=== PATIENT | male | born 1945 | race Caucasian/White ===

== ENCOUNTER 2019-03-06 09:03 | Outpatient (CLI) | payer MEDICARE, MEDICAID, SELFPAY ==
--- NOTE | 2019-03-06 09:34 | US_ITS ---
WS: [id number] ULTRASOUND RENAL TECHNIQUE: Ultrasound examination of both kidneys. CLINICAL INFORMATION: ELEVATED CREATININE COMPARISON: February 01, 2018 FINDINGS: RIGHT: Right kidney cyst measures 1.2 x 1.7 x 0.9 cm Right kidney is normal in size and appearance. Echogenicity: Normal. Cortical thickness: 1.5 cm; Normal. Hydronephrosis: None. Perinephric fluid: None. Right kidney measures: 11.3 cm x 6.8 cm x 7.0 cm. LEFT: Left kidney is normal in size and appearance. Echogenicity: Normal. Cortical thickness: 1.2 cm; Normal. Hydronephrosis: None. Perinephric fluid: None. Left kidney measures: 11.2 cm x 6.5 cm x 5.4 cm. Normal visualized aorta. Normal bladder US/US renal BI* [id number] IMPRESSION: 1. Both kidneys are normal in appearance. No hydronephrosis. 2. Right upper pole renal cyst measuring 1.2 x 1.7 x 0.9 cm
== END 2019-03-06 09:04 | disposition home or self-care (01) ==
LOC: RAD 09:12
PROVIDERS: Family Provider Family Medicine; PCP Family Medicine; Visit Provider Family Medicine
DX: N28.1 Cyst of kidney, acquired (principal); R79.89 Other specified abnormal findings of blood chemistry
CPT/HCPCS: 76770

== ENCOUNTER 2019-03-22 07:10 | Day surgery (SDC) | payer MEDICARE, MEDICAID, SELFPAY ==
[2019-03-21 13:11] VITALS: BMI 32.0
--- NOTE | 2019-03-22 07:23 | P.ANES_ITS ---
Pre-Anesthetic Assessment Pre-Anesthetic Assessment: Height/Weight: Height 1.75 m Weight 98.43 kg Preop Diagnosis: hematochezia Proposed Procedure: Operation Date: 03/22/19 08:30 Proposed Procedures p EGD/COLON 66643 K92.1(Not Applicable) - Good Weller MD s Colonoscopy 07779 R10.11(Not Applicable) - Good Weller MD Last intake: 23:00 Last Intake: 18:00 Exam: Pre-Anes Outpt Exam: alert, oriented x 3, clear to auscultation bilaterally and regular rate & rhythm CV/HEM: CV/HEM: HTN GI: GI: GERD Comments: hematochezia Musc/skel: Musc/skel: Lower Back Pain Comments: right radiculopathy Neuropsych: Neuropsych: Anxiety PFSH Anesthesia PFSH: Medical History (Updated 03/20/19 @ 14:47 by Jose Crandall DO) Bloody stool (Acute) Depression (Acute) GERD (gastroesophageal reflux disease) (Acute) Malignant neoplasm of penis, unspecified (Acute) Melena (Acute) Social History Smoking and tobacco status: never smoked Second hand smoke exposure: No Alcohol intake: current Alcohol intake frequency: holidays/special occasions only Alcohol type: beer Desire information about alcohol rehabilitation?: No Adopted: No Caregiver/support person: Yes Lives independently: Yes Household members: significant other Housing: House Marital status: / Highest education level completed: High School Graduate service: No Current occupational status: retired Current occupational exposures/hazards: No Pets and animals: No History of recent travel: No Sexually active: No Current gender identity: Male Tri/Gnosticist: Sabianism Special tri needs: No Agree to transfusion: No Financial difficulty paying for basics: Decline to Answer Data Anesthesia Cardiac Studies: No Data to Display
[2019-03-22 07:45] VITALS: BP 149/92; PULSE 78; RESP 18; TEMP 36.2; O2SAT 98
[2019-03-22] MEDS: sodium chloride 0.9% 1,000 ML 30 ML (08:01)
--- NOTE | 2019-03-22 08:35 | PM.HPUD ---
H&P update H&P Update: DATE OF SURGERY/PROCEDURE: 03/22/19 DATE H&P PERFORMED: 03/15/19 H&P UPDATE INFORMATION: H&P completed within last 30 days and No changes to prior documentation PREOP DIAGNOSIS: blood in stool PLANNED PROCEDURE: Operation Date: 03/22/19 08:30 Proposed Procedures p EGD/COLON 66812 K92.1(Not Applicable) - Good Weller MD s Colonoscopy 43910 R10.11(Not Applicable) - Good Weller MD Full H&P Perinent History: Medical/Surgical History: Medical History (Updated 03/20/19 @ 14:47 by Jose Crandall DO) Bloody stool (Acute) Depression (Acute) GERD (gastroesophageal reflux disease) (Acute) Malignant neoplasm of penis, unspecified (Acute) Melena (Acute) Family History: Family History (Updated 03/15/19 @ 15:14 by Yenny Little RN) Denies family history of Anesthesia complication Bleeding disorder Social History: Social History Smoking and tobacco status: never smoked Second hand smoke exposure: No Alcohol intake: current Alcohol intake frequency: holidays/special occasions only Alcohol type: beer Desire information about alcohol rehabilitation?: No Adopted: No Caregiver/support person: Yes Lives independently: Yes Household members: significant other Housing: House Marital status: / Highest education level completed: High School Graduate service: No Current occupational status: retired Current occupational exposures/hazards: No Pets and animals: No History of recent travel: No Sexually active: No Current gender identity: Male Tri/Caodaism: Nondenominational Special tri needs: No Agree to transfusion: No Financial difficulty paying for basics: Decline to Answer
[2019-03-22 09:01] VITALS: BP 95/66; PULSE 62; RESP 16; TEMP 36.1; O2SAT 95
--- NOTE | 2019-03-22 09:08 | ANE.PACU ---
 Inpatient post-anesthesia follow up: Airway intact: Yes Vital signs: Temperature 97 F Pulse Rate [Bilate ral Radial] 62 Respiratory Rate 16 Blood Pressure [Le ft Arm] 95/66 Pulse Oximetry 95 Oxygen Delivery Me thod Nasal Cannula Oxygen Flow Rate 3 Fraction of Inspir ed Oxygen Hydration adequate: Yes Nausea and vomiting: No Pain level: 1 Mental status: Baseline
[2019-03-22 09:15] VITALS: BP 119/76; PULSE 58; RESP 18; O2SAT 98
[2019-03-23 11:04] LABS: H. Pylori / CLO Test Negative
== END 2019-03-22 09:50 | disposition home or self-care (01) ==
PROVIDERS: Family Provider Family Medicine; PCP Family Medicine; Visit Provider Surgery
PROC: 0DJ08ZZ Inspection of Upper Intestinal Tract, Via Natural or Artificial Opening Endoscopic (ICD-10-PCS; CPT 43235; principal; 2019-03-22 08:30)
PROC: 0DJD8ZZ Inspection of Lower Intestinal Tract, Via Natural or Artificial Opening Endoscopic (ICD-10-PCS; CPT 45378; 2019-03-22 08:30)
DX: K92.1 Melena (principal); Z85.89 Personal history of malignant neoplasm of other organs and systems; D12.8 Benign neoplasm of rectum; Z79.891 Long term (current) use of opiate analgesic
CPT/HCPCS: 12345; 43239; 45380; 87077; 88305; 96365; J2704; J7030

== ENCOUNTER 2019-04-26 15:22 | Outpatient (CLI) | payer MEDICARE, MEDICAID, SELFPAY ==
[2019-04-26 16:59] LABS: Blood Urine Neg (Negative); Glucose Urine UA Norm (Normal); Ketones Urine Negative (Negative); Protein Urine 1+ (Negative); Urine Appearance Hazy (CLEAR); Urine Color Yellow (Yellow); pH Urine 5 (5-7)
[2019-04-26 17:00] LABS: Add Urine Culture? Yes; Bacteria Urine 2+; Bilirubin Urine Neg (NEGATIVE); Leukocyte Esterase Urine 1+ (Negative); Nitrate Urine Positive (Negative); Urobilinogen Urine Norm (Negative); WBC Urine 40-55 /hpf (0-5)
[2019-04-26 18:08] LABS: Albumin Level 4.4 g/dL (3.5-5.2); Anion Gap 14.8 (5-19); Blood Urea Nitrogen 24 mg/dL (8-23); Calcium 10.9 mg/dL (8.5-10.5); Carbon Dioxide 26 mmol/L (22-29); Chloride 104 mmol/L (98-107); Glucose 101 mg/dL (65-115); Phosphorus 3.5 mg/dL (2.5-4.5); Potassium 4.8 mmol/L (3.5-5.1); Sodium 140 mmol/L (136-145); Uric Acid 6.7 mg/dL (3.4-7.0)
[2019-04-26 19:40] LABS: Creatinine Urine, Random 168 mg/dL (39-259); Microalbumin Random Urine 25 ug/dL (0-20)
[2019-04-26 20:38] LABS: Microalbum Creatinine Ratio Ur 149 mg/dL (0-20)
[2019-04-26 21:32] LABS: Calcium 10.7 mg/dL (8.5-10.5); Parathyroid Hormone 69.6 pg/mL (15-65)
[2019-04-27 04:35] LABS: 25 Hydroxy Vitamin D 37 ng/mL (30-100)
[2019-04-28 07:34] LABS: PROTEIN, TOTAL 6.6 g/dL (6.1-8.1)
[2019-04-28 12:02] LABS: ALPHA 1 GLOBULIN 0.3 g/dL (0.2-0.3); ALPHA 2 GLOBULIN 0.8 g/dL (0.5-0.9); BETA 1 GLOBULIN 0.4 g/dL (0.4-0.6); BETA 2 GLOBULIN 0.4 g/dL (0.2-0.5); GAMMA GLOBULIN 0.8 g/dL (0.8-1.7)
[2019-04-28 16:56] LABS: KAPPA LIGHT CHAIN, FREE, SERUM 31.3 mg/L (3.3-19.4); KAPPA/LAMBDA LIGHT CHAINS FREE 1.44 (0.26-1.65); LAMBDA LIGHT CHAIN, FREE, SERU 21.8 mg/L (5.7-26.3)
== END 2019-04-26 15:23 | disposition home or self-care (01) ==
LOC: LAB 15:27
PROVIDERS: Family Provider Family Medicine; PCP Family Medicine; Visit Provider Internal Medicine Nephrology
DX: N18.3 Chronic kidney disease, stage 3 (moderate) (principal)
CPT/HCPCS: 36415; 80069; 81001; 82044; 82306; 82310; 83883; 83970; 84155; 84165; 84550

== ENCOUNTER 2019-05-03 13:52 | Outpatient (CLI) | payer MEDICARE, MEDICAID, SELFPAY ==
[2019-05-03 14:33] LABS: Add Urine Microscopic? YES; Bilirubin Urine Neg (NEGATIVE); Blood Urine 3+ (Negative); Glucose Urine UA Norm (Normal); Ketones Urine Negative (Negative); Nitrate Urine Negative (Negative); Protein Urine 2+ (Negative); Urine Appearance Hazy (CLEAR); Urine Color Yellow (Yellow); Urobilinogen Urine Norm (Negative); pH Urine 5 (5-7)
[2019-05-03 14:34] LABS: Add Urine Culture? Yes; Bacteria Urine TRACE; Leukocyte Esterase Urine 2+ (Negative); RBC Urine 15-25 /hpf (0-2); WBC Urine TOO NUMEROUS TO CNT /hpf (0-5)
== END 2019-05-03 13:53 | disposition home or self-care (01) ==
LOC: LAB 13:56
PROVIDERS: Family Provider Family Medicine; PCP Family Medicine; Visit Provider Internal Medicine Nephrology
DX: N18.3 Chronic kidney disease, stage 3 (moderate) (principal)
CPT/HCPCS: 81001; 87077; 87086; 87186

== ENCOUNTER 2019-07-18 15:09 | Outpatient (CLI) | payer MEDICARE, MEDICAID, SELFPAY ==
--- NOTE | 2019-07-18 15:15 | XR_ITS ---
WS: [id number] RIGHT SHOULDER: 3 VIEW(S) TECHNIQUE: Internal and external rotation with Y view. HISTORY: FALL PAIN IN RIGHT SHOULDER COMPARISON: None available. There is a lucency at the greater tuberosity suspicious for nondisplaced fracture. Mild AC joint narrowing and bony hypertrophy. XR/XR shoulder RT min 2V* 66870 IMPRESSION: Mild AC joint arthritis. Lucency at the greater tuberosity suspicious for nondisplaced fracture.
== END 2019-07-18 15:10 | disposition home or self-care (01) ==
LOC: RADWPI 15:16
PROVIDERS: Family Provider Family Medicine; PCP Family Medicine; Visit Provider Nurse Practitioner Family
DX: M25.511 Pain in right shoulder (principal); W19.XXXA Unspecified fall, initial encounter; M19.011 Primary osteoarthritis, right shoulder
CPT/HCPCS: 73030

== ENCOUNTER 2019-07-21 14:43 | Emergency (ER) | payer MEDICARE, MEDICAID, SELFPAY ==
[2019-07-21 15:08] VITALS: BP 150/79; PULSE 57; RESP 18; TEMP 36.7; O2SAT 97; BMI 32.5
[2019-07-21 16:20] LABS: Basophils % 0.6 %; Eosinophils # 0.1 10^3/uL (0.0-0.8); Eosinophils % 2.5 %; Hemoglobin 13.4 g/dL (11.7-16.6); Lymphocytes # 0.9 10^3/uL (0.8-4.8); Lymphocytes % 24.5 %; Mean Corpuscular HGB Conc 32.7 g/dL (30.0-36.0); Mean Corpuscular Hemoglobin 30.7 pg (28.0-34.0); Mean Corpuscular Volume 93.8 fL (80-94); Mean Platelet Volume 8.7 fL (7.4-10.4); Monocytes # 0.3 10^3/uL (0.2-0.9); Monocytes % 8.3 %; Neutrophils # 2.3 10^3/uL (1.8-7.7); Neutrophils % 63.8 %; Nucleated Red Blood Cells % 0 %; Platelet Count 161 10^3/cmm (130-400); Red Blood Count 4.37 10^6/uL (4.1-5.3); Red Cell Distribution Width 13.2 % (12.1-15.1); White Blood Count 3.6 10^3/uL (4.0-10.0)
[2019-07-21 16:35] LABS: Alanine Aminotransferase 14 U/L (0-41); Albumin Level 4.3 g/dL (3.5-5.2); Alkaline Phosphatase 79 IU/L (40-130); Anion Gap 16.9 (5-19); Aspartate Amino Transferase 21 U/L (0-40); Blood Urea Nitrogen 41 mg/dL (8-23); Calcium 10.4 mg/dL (8.5-10.5); Carbon Dioxide 20 mmol/L (22-29); Chloride 104 mmol/L (98-107); Globulin 2.8 g/dL (1.3-4.6); Glucose 99 mg/dL (65-115); Osmolality Calculated 280 mOsm/kg (285-295); Potassium 4.9 mmol/L (3.5-5.1); Sodium 136 mmol/L (136-145); Total Bilirubin 0.3 mg/dL (0.15-1.2); Total Protein 7.1 g/dL (6.6-8.7)
--- NOTE | 2019-07-21 17:47 | ED_ITS ---
HPI - General Adult General: Chief complaint: General Medical Stated complaint: MULTIPLE COMPLAINTS; SENT BY Time Seen by Provider: 07/21/19 17:47 Source: patient Mode of arrival: ambulatory Limitations: no limitations History of Present Illness: HPI narrative: Patient comes in today for complaints of persistent urinary tract infection. Patient had been being seen at a local clinic and was referred to the ER due to abnormal urine culture. The clinic and called the emergency department and stated that they wanted to change the antibiotic over the phone but the patient wanted to be seen in the ER. Discussed this with patient he felt that he needed further medication for his treatment of his urinary tract infection. Patient denies any significant or serious symptoms. Patient appears well. Patient appears in no pain. Review of Systems General: Reports: 10 or more systems reviewed and unremarkable except in HPI and below : Reports: difficulty urinating [facility] PFSH: Medical History (Updated 07/21/19 @ 18:16 by ALESHA Pak) Bloody stool Change in bowel habit Depression GENESIS (generalized anxiety disorder) GERD (gastroesophageal reflux disease) Hypertension Malignant neoplasm of penis, unspecified Melena Surgical History History of knee surgery History of laparoscopic cholecystectomy Family History Denies family history of Anesthesia complication Bleeding disorder Social History Smoking and tobacco status: never smoked Second hand smoke exposure: No Alcohol intake: current Alcohol intake frequency: holidays/special occasions only Alcohol type: beer Desire information about alcohol rehabilitation?: No Adopted: No Caregiver/support person: Yes Lives independently: Yes Household members: significant other Housing: House Marital status: / Highest education level completed: High School Graduate service: No Current occupational status: retired Current occupational exposures/hazards: No Pets and animals: No History of recent travel: No Sexually active: No Current gender identity: Male Tri/Zoroastrianism: [employer] Special tri needs: No Agree to transfusion: No Financial difficulty paying for basics: Decline to Answer Physical Exam Const: COMMON NORMALS: no acute distress and patient oriented x3 GENERAL APPEARANCE: cooperative HENMT: COMMON NORMALS: normocephalic, TM's normal bilaterally and Normal external nose present HEAD & SCALP: normal to inspection and normocephalic NOSE: Normal external nose present TYMPANIC MEMBRANE: TM's normal bilaterally MOUTH: Normal oral and palatal mucosa present THROAT: posterior oropharynx normal Eye: GENERAL EYE: appearance normal, both eyes and all related structures Neck/C-Spine: COMMON NORMALS: full ROM Lymph: LYMPHATIC: no lymphadenopathy noted Chest: COMMONS NORMALS: normal inspection of the chest Resp: COMMON NORMALS: normal respiratory effort EFFORT & INSPECTION: Yes able to speak in complete sentences Cardio: COMMON NORMALS: regular rate and regular rhythm RATE: regular rate RHYTHM: regular rhythm GI: COMMON NORMALS: non-tender : COMMON NORMALS: Yes no CVA tenderness BLADDER/KIDNEY EXAM: Yes no CVA tenderness Back/Pelvis: COMMON NORMALS: no CVA tenderness and thoracic and lumbar spine normal to inspection Extremity: COMMON NORMALS: normal to inspection Neuro: COMMON NORMALS: patient oriented x3 and moves all extremities Psych: COMMON NORMALS: mental status grossly normal and cooperative Skin: COMMON NORMALS: no rashes or lesions noted GENERAL SKIN EXAM: no rashes or lesions noted Course Vital Signs: Vital signs: Vital Signs Temperature 98.0 F 07/21/19 15:08 Pulse Rate 50 L 07/21/19 18:08 Respiratory Rate 18 07/21/19 18:08 Blood Pressure 132/83 07/21/19 18:08 Pulse Oximetry 98 07/21/19 18:08 MDM - General Adult MDM Narrative: Medical decision making narrative: Patient come to the ER for concerns of urinary tract infection. Patient was started on Cipro last week but it was found that patient's Cipro would not cover the infection. Patient was came to the ER for retreatment of antibiotic. Examination of the urinary culture and sensitivity noted that it was not susceptible to Cipro which patient was on, it is susceptible to penicillins, Macrobid, and and vancomycin. Exam notes no serious injury or illness. Vital signs are normal except for mild bradycardia. Reviewed exam with patient recommended treatment with an injection of Rocephin to follow with cefdinir. Recommend follow-up appointment with urology for further treatment. Also recommended recheck with primary care in 1 week for repeat urinalysis. Patient reported understanding of care plan and need for follow-up. Lab Data: Labs: Lab Results 05/22/20 05/22/20 Range/Units 16:11 16:11 WBC 3.6 L (4.0-10.0) 10^3/ uL RBC 4.37 (4.1-5.3) 10^6/u L Hgb 13.4 (11.7-16.6) g/dL Hct 41.0 L (42.0-52.0) % MCV 93.8 (80-94) fL MCH 30.7 (28.0-34.0) pg MCHC 32.7 (30.0-36.0) g/dL RDW 13.2 (12.1-15.1) % Plt Count 161 (130-400) 10^3/c mm MPV 8.7 (7.4-10.4) fL Neut % (Auto) 63.8 % Lymph % (Auto) 24.5 % [place] % (Auto) 8.3 % Eos % (Auto) 2.5 % Baso % (Auto) 0.6 % Neut # (Auto) 2.3 (1.8-7.7) 10^3/u L Lymph # (Auto) 0.9 (0.8-4.8) 10^3/u L [place] # (Auto) 0.3 (0.2-0.9) 10^3/u L Eos # (Auto) 0.1 (0.0-0.8) 10^3/u L Baso # (Auto) 0.0 (0.0-0.1) 10^3/u L Nucleated RBC % (a uto) 0 % Nucleated RBCs # 0.0 /100WBC Sodium 136 (136-145) mmol/L Potassium 4.9 (3.5-5.1) mmol/L Chloride 104 (98-107) mmol/L Carbon Dioxide 20 L (22-29) mmol/L Anion Gap 16.9 (5-19) BUN 41 H (8-23) mg/dL Creatinine 2.0 H (0.7-1.2) mg/dL Glucose 99 (65-115) mg/dL Calculated Osmolal ity 280 L (285-295) mOsm/k g Calcium 10.4 (8.5-10.5) mg/dL Total Bilirubin 0.3 (0.15-1.2) mg/dL AST 21 (0-40) U/L ALT 14 (0-41) U/L Alkaline Phosphata se 79 (40-130) IU/L Total Protein 7.1 (6.6-8.7) g/dL Albumin 4.3 (3.5-5.2) g/dL Globulin 2.8 (1.3-4.6) g/dL Discharge Plan Discharge Patient Disposition: Home, Self-Care Clinical Impression: Cystitis Condition: Stable Prescriptions: New cefdinir 300 mg capsule 300 mg PO BID 10 Days Qty: 28 RF: 0 No Action mirtazapine 15 mg tablet 15 mg PO QDAY RF: 0 escitalopram oxalate 10 mg tablet 10 mg PO QDAY Qty: 30 RF: 11 Eliquis 5 mg tablet 5 mg PO DAILY RF: 0 Hold Instructions: Resume on 03/25/19. metoprolol tartrate 25 mg tablet 25 mg PO BID RF: 0 Complete Multivitamin Tablet 1 tab PO ONCE RF: 0 hydrocodone-acetaminophen [Converse] 7.5-325 mg tablet 1 tab PO BID PRN (Reason: Pain) RF: 0 Xanax 1 mg tablet 1 mg PO BID PRN (Reason: anxiety) RF: 0 cetirizine [Zyrtec] 10 mg tablet 10 mg PO DAILY RF: 0 paroxetine HCl 20 mg tablet 20 mg PO DAILY RF: 0 omeprazole 20 mg capsule,delayed release(DR/EC) 20 mg PO DAILY RF: 0 Discharge Orders: Discharge Order (Routine); Ordered 07/21/19 Ordered By: Young Lujan Referrals: Mey Garnica MD [Primary Care Provider] - Discharge Diet: Usual diet Discharge Activity: Increase activity as tolerated Patient Instructions: Urinary Tract Infection in Men (ED) Activity Restrictions/Additional Instructions: Drink plenty of water with medications. Take antibiotic as directed. Follow-up with primary care in 1 week for recheck on the urine. Return to the ER for high fever or worsening symptoms. Case management will contact you regarding a follow-up with urology for further evaluation and treatment of recurrent urinary tract infection. Coding Level of Care Code ED Insurance Risk Manager for Cielo Fwswati Exam Comprehensive
[2019-07-21 18:08] VITALS: BP 132/83; PULSE 50; RESP 18; O2SAT 98
[2019-07-21 18:33] LABS: Add Urine Microscopic? YES; Bilirubin Urine 1+ (NEGATIVE); Blood Urine Neg (Negative); Glucose Urine UA Norm (Normal); Ketones Urine Negative (Negative); Leukocyte Esterase Urine 2+ (Negative); Nitrate Urine Negative (Negative); Protein Urine Neg (Negative); Specific Gravity, Urine 1.015 (1.005-1.030); Urine Appearance Hazy (CLEAR); Urine Color Yellow (Yellow); Urobilinogen Urine Norm (Negative); pH Urine 5 (5-7)
[2019-07-21 18:41] LABS: Bacteria Urine 3+; RBC Urine 0-4 /hpf (0-2); Squamous Epithelial Cell Urine 0-4 (0-5); WBC Urine TOO NUMEROUS TO CNT /hpf (0-5)
[2019-07-21 18:42] LABS: Add Urine Culture? Yes
[2019-07-21] MEDS: cefTRIAXone 1,000 mg SDV 1000 MG IM (18:50)
[2019-07-21 18:51] VITALS: BP 100/64; PULSE 50; RESP 18; O2SAT 98
[2019-07-21 19:44] VITALS: BP 109/65; PULSE 52; RESP 16; O2SAT 98
--- NOTE | 2019-07-25 09:20 | DCPLANNER ---
java manager had message to schedule a follow up appointment for patient with Dr. Encinas. java manager called the office of Dr. Encinas, spoke with Sharita. java manager was told that patients information would be printed and reviewed. Clinic will call patient with appointment information, nurse case manager will call for appointment information.
--- NOTE | 2019-07-27 13:19 | DCPLANNER ---
Patient has a follow up appointment scheduled for , August 03, 2019 at 3:[address] Encinas. Clinic will call patient with appointment information.
--- NOTE | 2019-08-17 13:27 | DCPLANNER ---
Patient did attend appointment scheduled for 08.03.[address] Encinas.
== END 2019-07-21 19:49 | disposition home or self-care (01) ==
PROVIDERS: Physician Assistant; Emergency Provider Nurse Practitioner Family; Family Provider Family Medicine; PCP Family Medicine
DX: N30.90 Cystitis, unspecified without hematuria (principal); Z79.01 Long term (current) use of anticoagulants; I10 Essential (primary) hypertension; Z85.49 Personal history of malignant neoplasm of other male genital organs
CPT/HCPCS: 12345; 36415; 80053; 81001; 85025; 87077; 87086; 87186; 96372; 99282; 99283; J0696

== ENCOUNTER 2019-07-31 16:47 | Outpatient (CLI) | payer MEDICARE, MEDICAID, SELFPAY ==
[2019-07-31 17:39] LABS: Basophils % 0.9 %; Eosinophils # 0.1 10^3/uL (0.0-0.8); Eosinophils % 2.9 %; Hematocrit 43.2 % (42.0-52.0); Hemoglobin 13.4 g/dL (11.7-16.6); Lymphocytes # 0.9 10^3/uL (0.8-4.8); Lymphocytes % 26.6 %; Mean Corpuscular Hemoglobin 30.5 pg (28.0-34.0); Mean Corpuscular Volume 98.2 fL (80-94); Mean Platelet Volume 8.5 fL (7.4-10.4); Monocytes # 0.3 10^3/uL (0.2-0.9); Monocytes % 7.7 %; Neutrophils # 2.2 10^3/uL (1.8-7.7); Neutrophils % 61.6 %; Nucleated Red Blood Cells % 0 %; Platelet Count 153 10^3/cmm (130-400); Red Cell Distribution Width 13.1 % (12.1-15.1); White Blood Count 3.5 10^3/uL (4.0-10.0)
[2019-07-31 17:52] LABS: Albumin Level 4.2 g/dL (3.5-5.2); Anion Gap 13.6 (5-19); Blood Urea Nitrogen 27 mg/dL (8-23); Calcium 9.6 mg/dL (8.5-10.5); Carbon Dioxide 20 mmol/L (22-29); Chloride 108 mmol/L (98-107); Glucose 117 mg/dL (65-115); Phosphorus 2.8 mg/dL (2.5-4.5); Potassium 4.6 mmol/L (3.5-5.1); Sodium 137 mmol/L (136-145)
[2019-07-31 18:21] LABS: Creatinine Urine, Random 179 mg/dL (39-259); Microalbum Creatinine Ratio Ur 39 mg/dL (0-20); Microalbumin Random Urine 7 ug/dL (0-20)
== END 2019-07-31 16:48 | disposition home or self-care (01) ==
LOC: RAD 16:51
PROVIDERS: PCP Family Medicine; Visit Provider Internal Medicine Nephrology
DX: N18.3 Chronic kidney disease, stage 3 (moderate) (principal)
CPT/HCPCS: 36415; 80069; 82044; 85025

== ENCOUNTER → 2019-08-03 15:07 | Outpatient (BNVA) | payer MEDICARE, MEDICAID, SELFPAY | PROVIDERS: PCP Family Medicine; Visit Provider Nurse Practitioner Family | DX: C60.9 Malignant neoplasm of penis, unspecified (principal); N39.0 Urinary tract infection, site not specified; N35.919 Unspecified urethral stricture, male, unspecified site | CPT/HCPCS: 81001 ==

== ENCOUNTER 2019-08-18 12:46 | Outpatient (CLI) | payer MEDICARE, MEDICAID, SELFPAY ==
--- NOTE | 2019-08-18 12:59 | XR_ITS ---
WS: [id number] XR chest 1V [id number] REASON FOR EXAM: FEVER, COUGHING, MALAISE, CKD STAGE 3 FINDINGS: Comparisons were made to February 06, 2019. The heart is not enlarged there is arteriosclerotic changes seen in the arch the aorta. The peripheral lungs are well aerated. No pneumonia, pleural effusion, pulmonary edema, or mass effec t. The hilum and apices are normal. No osseous abnormalities. XR/XR chest 1V [id number] IMPRESSION: Arteriosclerotic changes.
== END 2019-08-18 12:47 | disposition home or self-care (01) ==
PROVIDERS: PCP Family Medicine; Visit Provider Nurse Practitioner Family
DX: R50.9 Fever, unspecified (principal); R53.81 Other malaise; R05 Cough; N18.3 Chronic kidney disease, stage 3 (moderate)
CPT/HCPCS: 71045

== ENCOUNTER 2019-09-19 12:58 | Outpatient (CLI) | payer BC, MEDICAID, SELFPAY ==
--- NOTE | 2019-09-19 13:05 | XRR_ITS ---
PROCEDURE INFORMATION: Exam: XR Chest, 2 Views Exam date and time: 09/19/2019 1:20 PM Age: 74 years old Clinical indication: Condition or disease; Other: Penile cancer TECHNIQUE: Imaging protocol: XR of the chest Views: 2 views. COMPARISON: CR XR chest 1V [id number] 08/18/2019 1:02 PM FINDINGS: Lungs: Unremarkable. No consolidation. Pleural space: Unremarkable. No pleural effusion. No pneumothorax. Heart/Mediastinum: Unremarkable. No cardiomegaly. Bones/joints: Unremarkable. XR/XR chest 2V* [id number] IMPRESSION: No acute findings.
== END 2019-09-19 12:59 | disposition home or self-care (01) ==
PROVIDERS: PCP Family Medicine; Visit Provider Urology
DX: C60.9 Malignant neoplasm of penis, unspecified (principal)
CPT/HCPCS: 71046; 80053; 81001; 85025

== ENCOUNTER 2019-10-09 16:34 | Outpatient (CLI) | payer MEDICARE, MEDICAID, SELFPAY ==
--- NOTE | 2019-10-09 16:41 | XR_ITS ---
WS: [id number] LUMBAR SPINE: 3 VIEWS TECHNIQUE: AP, lateral and L5-S1 spot. HISTORY: LOWER BACK PAIN COMPARISON: 09/06/2015 Straightening of the normal lumbar lordosis. There is complete fusion across the disc space of L3-4 a nd L4-5. Interbody ankylosis. Large bridging osteophytes anteriorly. Severe disc space narrowing at L 5-S1 with a large clawlike osteophyte anteriorly. L2 anterolisthesis by 3 mm. No fractures. There is additional fusion across the facet joints suspected. Similar findings were described in 2016 . SI joints are symmetric bilaterally. No soft tissue abnormalities. 9.8 mm LEFT renal calcification is unchanged since 2016. XR/XR lumbar spine 2-3V* [id number] IMPRESSION: 1. 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 Similar to the prior study from 2016. 2. No fracture. 3. Severe degenerative disc disease at L5-S1.
== END 2019-10-09 16:35 | disposition home or self-care (01) ==
LOC: RADWPI 16:39
PROVIDERS: PCP Family Medicine; Visit Provider Nurse Practitioner Family
DX: M54.5 Low back pain (principal); M43.26 Fusion of spine, lumbar region; M51.37 Other intervertebral disc degeneration, lumbosacral region
CPT/HCPCS: 72100

== ENCOUNTER 2019-10-17 15:15 | Emergency (ER) | payer MEDICARE, MEDICAID, SELFPAY ==
[2019-10-17 15:32] VITALS: BP 140/75; PULSE 51; RESP 18; TEMP 36.8; O2SAT 97; BMI 32.5
--- NOTE | 2019-10-17 18:37 | CTR_ITS ---
PROCEDURE INFORMATION: Exam: CT Lumbar Spine Without Contrast Exam date and time: 10/17/2019 6:57 PM Age: 74 years old Clinical indication: Pain and injury or trauma; Fall; Initial encounter; Blunt trauma (contusions or hematomas); Low back pain; Injury details: Numbness in left leg above knee TECHNIQUE: Imaging protocol: Computed tomography images of the lumbar spine without contrast. Radiation optimization: All CT scans at this facility use at least one of these dose optimization techniques: automated exposure control; mA and/or kV adjustment per patient size (includes targeted exams where dose is matched to clinical indication); or iterative reconstruction. COMPARISON: CR XR lumbar spine 2-3V* [id number] 10/09/2019 4:46 PM RADIATION DOSE METRICS: Total DLP (mGy-cm): 2670.42 FINDINGS: Vertebrae: No visible acute osseous abnormality. No visible fracture, subluxation, or dislocation. Again note of fused ankylosis L3, L4, and L5. Fused anterior claw syndesmophytes. Facet arthrosis. Discs/Spinal canal/Neural foramina: Degenerative disc disease with vacuum disc phenomenon L3/4 and L5/S1. Near complete loss in intervertebral disc space height L5/S1. Moderate central canal stenosis L3/L4 secondary to a posterior disc bulge osteophyte complex coupled with ligamentum flavum hypertrophy and facet arthrosis. Mild posterior disc bulge L5/S1 without central canal stenosis or visible neural foraminal carotid from. Soft tissues: Unremarkable. No visible significant paraspinal muscle atrophy. CT/CT lumbar spine wo con* [id number] IMPRESSION: 1. No visible acute osseous abnormality, fracture, subluxation, or dislocation. 2. Moderate central canal stenosis L3/L4. 3. Degenerative disc disease L3/4 and L5/S1 with vacuum disc phenomenon. 4. Again note of fused ankylosis L3, L4, and L5. Fused anterior claw syndesmophytes. 5. Facet arthrosis. Radiation Dose CTDIVOL = (mGy): DLP = 2670.42 (mGy-cm)
[2019-10-17 18:38] VITALS: PULSE 45
--- NOTE | 2019-10-17 18:39 | W.ED.EXTPRO ---
HPI - Extremity Problem General: Chief complaint: Extremity Problem,Nontraumatic Stated complaint: back/left leg pain Time Seen by Provider: 10/17/19 18:19 Source: patient Mode of arrival: ambulatory Limitations: no limitations History of Present Illness: HPI Narrative: 4-year-old male states he has a history of chronic back pain with worsening pain over the last week. He states on the left side and radiates down his left leg. Patient denies any bowel or bladder incontinence. He states he has had prostate issues over the last year. He denies any weakness in his extremities. He states much worse with walking and improved with rest. Associated symptoms: Deny chest pain, fever(s) or rash Review of Systems Const: Denies: fever(s), chills, body aches or change in appetite Eyes: Denies: blurry vision or eye discomfort ENMT: Denies: throat pain or dental pain Card: Denies: chest pain Resp: Denies: dyspnea GI: Denies: abdominal pain, nausea, vomiting or diarrhea : Denies: dysuria Musc: Reports: back pain Skin/Breast: Denies: rash Neuro: Denies: headache(s) Psych: Denies: depression Cliff/Lymph: Denies: easy bruising All/Imm: Denies: urticaria PFSH ED PFSH: Medical History Bloody stool Change in bowel habit Depression GENESIS (generalized anxiety disorder) GERD (gastroesophageal reflux disease) Hypertension Melena Recurrent UTI Squamous cell carcinoma of penis Urethral stricture Surgical History History of knee surgery History of laparoscopic cholecystectomy Family History Denies family history of Anesthesia complication Bleeding disorder Social History Smoking and tobacco status: never smoked Second hand smoke exposure: No Alcohol intake: current Alcohol intake frequency: holidays/special occasions only Alcohol type: beer Desire information about alcohol rehabilitation?: No Adopted: No Caregiver/support person: Yes Lives independently: Yes Household members: significant other Housing: House Marital status: / Highest education level completed: High School Graduate service: No Current occupational status: retired Current occupational exposures/hazards: No Pets and animals: No History of recent travel: No Sexually active: No Current gender identity: Male Tri/Roman Catholic: Buddhism Special tri needs: No Agree to transfusion: No Financial difficulty paying for basics: Decline to Answer Physical Exam Const: COMMON NORMALS: no acute distress, patient oriented x3 and healthy appearing HENMT: COMMON NORMALS: normocephalic and atraumatic HEAD & SCALP: normocephalic and atraumatic Eye: COMMON NORMALS: Equal, round and reactive pupils present and EOMs intact bilaterally PUPIL: Yes Equal, round and reactive pupils present Neck/C-Spine: COMMON NORMALS: full ROM and supple Chest: COMMONS NORMALS: normal inspection of the chest and normal palpation of entire chest wall Resp: COMMON NORMALS: normal respiratory effort, No retractions, No use of accessory muscles and clear to auscultation bilaterally AUSCULTATION: clear to auscultation bilaterally Cardio: COMMON NORMALS: regular rate, regular rhythm and No murmurs present (Cardio) RATE: regular rate RHYTHM: regular rhythm GI: COMMON NORMALS: Normal to inspection, nondistended, normoactive bowel sounds present, Soft to palpation, non-tender and no masses PALPATION: Yes Soft to palpation Back/Pelvis: OTHER: Tenderness over left lower back. No midline tenderness. Patient has no saddle anesthesia. He has 5 out of 5 strength bilateral extremities. Extremity: COMMON NORMALS: normal to inspection and full ROM Neuro: COMMON NORMALS: patient oriented x3, moves all extremities and no focal motor deficits Psych: COMMON NORMALS: mental status grossly normal, Normal thought process present and cooperative THOUGHT PROCESS: Normal thought process present Skin: COMMON NORMALS: no rashes or lesions noted and no wounds GENERAL SKIN EXAM: no rashes or lesions noted Course Vital Signs: Vital signs: Vital Signs Temperature 98.2 F 10/17/19 15:32 Pulse Rate 45 L 10/17/19 18:38 Respiratory Rate 17 10/17/19 18:51 Blood Pressure 140/75 10/17/19 15:32 Pulse Oximetry 97 10/17/19 15:32 MDM - Extremity (Nontraumatic) MDM Narrative: Medical decision making narrative: Patient presents here with low back pain with sciatica. Patient CT scan here is normal. On his exam he has no signs of cord compression or epidural abscess. Patient feels improved after morphine and steroids. He has an appoint with her PCP on Wednesday. Patient is to return if worsening. He understands and agrees to plan. Imaging Data^: ct lumbar: Radiologist's impression: zed Reason: pain [facility] [address] [place] [address] CT Scan Report Signed Patient: Mike Silva Unit #: [id number] : 1945 Age/Sex: 74 / M ADM Date: 10/17/19 Loc: ER Room/Bed: Attending Dr: Ordering Provider/Ordering MD: Fe Vázquez MD Date of Service: 10/17/19 Procedure(s): CT lumbar spine wo con* [id number] Accession Number(s): [id number] Report Number: [id number] PROCEDURE INFORMATION: Exam: CT Lumbar Spine Without Contrast Exam date and time: 10/17/2019 6:57 PM Age: 74 years old Clinical indication: Pain and injury or trauma; Fall; Initial encounter; Blunt trauma (contusions or hematomas); Low back pain; Injury details: Numbness in left leg above knee TECHNIQUE: Imaging protocol: Computed tomography images of the lumbar spine without contrast. Radiation optimization: All CT scans at this facility use at least one of these dose optimization techniques: automated exposure control; mA and/or kV adjustment per patient size (includes targeted exams where dose is matched to clinical indication); or iterative reconstruction. COMPARISON: CR XR lumbar spine 2-3V* [id number] 10/09/2019 4:46 PM RADIATION DOSE METRICS: Total DLP (mGy-cm): 2670.42 FINDINGS: Vertebrae: No visible acute osseous abnormality. No visible fracture, subluxation, or dislocation. Again note of fused ankylosis L3, L4, and L5. Fused anterior claw syndesmophytes. Facet arthrosis. Discs/Spinal canal/Neural foramina: Degenerative disc disease with vacuum disc phenomenon L3/4 and L5/S1. Near complete loss in intervertebral disc space height L5/S1. Moderate central canal stenosis L3/L4 secondary to a posterior disc bulge osteophyte complex coupled with ligamentum flavum hypertrophy and facet arthrosis. Mild posterior disc bulge L5/S1 without central canal stenosis or visible neural foraminal carotid from. Soft tissues: Unremarkable. No visible significant paraspinal muscle atrophy. CT/CT lumbar spine wo con* [id number] IMPRESSION: 1. No visible acute osseous abnormality, fracture, subluxation, or dislocation. 2. Moderate central canal stenosis L3/L4. 3. Degenerative disc disease L3/4 and L5/S1 with vacuum disc phenomenon. 4. Again note of fused ankylosis L3, L4, and L5. Fused anterior claw syndesmophytes. 5. Facet arthrosis. Discharge Plan Discharge Patient Disposition: Home Clinical Impression: Low back pain Qualifiers: Chronicity: acute Back pain laterality: left Sciatica presence: with sciatica Sciatica laterality: sciatica of left side Qualified Code(s): M54.42 - Lumbago with sciatica, left side Condition: Stable Prescriptions: New Naprosyn 500 mg tablet 500 mg PO BID PRN (Reason: pain) Qty: 20 RF: 0 Robaxin-750 750 mg tablet 750 mg PO Q6H Qty: 30 RF: 0 No Action mirtazapine 15 mg tablet 15 mg PO QDAY RF: 0 escitalopram oxalate 10 mg tablet 10 mg PO QDAY Qty: 30 RF: 11 Eliquis 5 mg tablet 5 mg PO BID RF: 0 Hold Instructions: Resume on 03/25/19. metoprolol tartrate 25 mg tablet 25 mg PO QID RF: 0 methenamine hippurate 1 gram tablet 1 gm PO BID Qty: 60 RF: 12 ascorbic acid (vitamin C) 1,000 mg tablet 1 gm PO BID RF: 0 Complete Multivitamin Tablet 1 tab PO ONCE RF: 0 hydrocodone-acetaminophen [[place]] 7.5-325 mg tablet 1 tab PO BID PRN (Reason: Pain) RF: 0 Xanax 1 mg tablet 1 mg PO BID PRN (Reason: anxiety) Qty: 60 RF: 0 paroxetine HCl 20 mg tablet 20 mg PO DAILY RF: 0 omeprazole 20 mg capsule,delayed release(DR/EC) 20 mg PO DAILY RF: 0 cetirizine [Zyrtec] 10 mg tablet 10 mg PO DAILY PRN (Reason: allergy symptoms) RF: 0 lisinopril 10 mg tablet 10 mg PO DAILY RF: 0 Discharge Orders: Discharge Order (Routine); Ordered 10/17/19 Ordered By: Fe Vázquez Referrals: Mey Garnica MD [Primary Care Provider] - Discharge Diet: Advance as tolerated Discharge Activity: Resume usual activity Patient Instructions: Back Pain (ED) Coding Level of Care Code ED Auto Wheel Alignment Specialist for Chg Fwd Exam Comprehensive
[2019-10-17] MEDS: dexamethasone 10 mg/mL INJ IM (18:50)
[2019-10-17 18:51] VITALS: RESP 17
[2019-10-17] MEDS: morphine 4 mg/mL SDV 1 mL IM (18:51)
--- NOTE | 2019-10-17 18:53 | PC.NURSE ---
pt to CT
[2019-10-17 20:23] VITALS: RESP 17
== END 2019-10-17 20:24 | disposition home or self-care (01) ==
PROVIDERS: Emergency Provider Emergency Medicine; PCP Family Medicine
DX: M54.42 Lumbago with sciatica, left side (principal); Z79.01 Long term (current) use of anticoagulants; I10 Essential (primary) hypertension
CPT/HCPCS: 12345; 72131; 96372; 99282; 99283; J1100; J2270

== ENCOUNTER 2019-12-13 00:41 | Inpatient (IN) | payer MEDICARE, MEDICAID, SELFPAY ==
[2019-12-13] VITALS (16 sets, daily range): BP systolic 96–152; BP diastolic 22–91; PULSE 48–72; RESP 16–26; TEMP 36.7–39.3; O2SAT 92–98; BMI 27.1
--- NOTE | 2019-12-13 01:06 | XRR_ITS ---
PROCEDURE INFORMATION: Exam: XR Chest, 1 View Exam date and time: 12/13/2019 1:20 AM Age: 74 years old Clinical indication: Cough and fever; Additional info: Fever/cough TECHNIQUE: Imaging protocol: XR of the chest Views: 1 view. COMPARISON: CR XR chest 2V* [id number] 09/19/2019 1:16 PM FINDINGS: Lungs: Mild lower lung interstitial scarring or atelectasis. Suprahilar right upper lobe and likely right infrahilar lower lobe bronchiectasis. No focal consolidation. Pleural space: Unremarkable. No pleural effusion. No pneumothorax. Heart/Mediastinum: Stable heart size. Bones/joints: degenerative change of the spine. XR/XR chest 1V portable [id number] IMPRESSION: 1. Minor interstitial scarring or atelectasis lower lungs. 2. Minor areas of chronic bronchiectasis.
--- NOTE | 2019-12-13 01:07 | ECG_ITS ---
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 Measurements Intervals [place] Rate: 70 P: 39 WV: 146 QRS: -12 QRSD: 86 T: 26 QT: 370 QTc: 401 Interpretive Statements SINUS RHYTHM WITH MARKED SINUS ARRHYTHMIA MINIMAL VOLTAGE CRITERIA FOR LVH, CONSIDER NORMAL VARIANT [MEETS CRITERIA IN ONE OF: R(aVL), S(V1), R(V5), R(V5/V6)+S(V1)] Compared to ECG 02/06/2019 13:51:49 Sinus bradycardia no longer present Electronically Signed On 12-14-2019 20:36:05 CDT by Toro Fonseca M.D. [id number]
[2019-12-13] MEDS: acetaminophen 500 mg Tablet 1000 MG PO (01:22)
[2019-12-13] MEDS: sodium chloride 0.9% 1,000 ML 100 ML IV ×3 (01:23→22:10)
[2019-12-13 01:48] LABS: Alanine Aminotransferase 12 U/L (0-41); Albumin Level 4.2 g/dL (3.5-5.2); Alkaline Phosphatase 97 IU/L (40-130); Anion Gap 17.2 (5-19); Aspartate Amino Transferase 15 U/L (0-40); Blood Urea Nitrogen 34 mg/dL (8-23); Calcium 9.9 mg/dL (8.5-10.5); Carbon Dioxide 20 mmol/L (22-29); Chloride 105 mmol/L (98-107); Globulin 2.1 g/dL (1.3-4.6); Glucose 101 mg/dL (65-115); Lipase 40 U/L (13-60); Magnesium 1.7 mg/dL (1.7-2.3); Osmolality Calculated 294 mOsm/kg (285-295); Potassium 4.2 mmol/L (3.5-5.1); Sodium 138 mmol/L (136-145); Total Bilirubin 0.6 mg/dL (0.15-1.2); Total Protein 6.3 g/dL (6.6-8.7)
[2019-12-13 01:50] LABS: Basophils % 0.4 %; Eosinophils # 0.1 10^3/uL (0.0-0.8); Hematocrit 39.5 % (42.0-52.0); Hemoglobin 12.8 g/dL (11.7-16.6); Lactic Sepsis W/Reflex 1.8 mmol/L (0.5-2.2); Lymphocytes # 0.6 10^3/uL (0.8-4.8); Lymphocytes % 7.8 %; Mean Corpuscular HGB Conc 32.4 g/dL (30.0-36.0); Mean Corpuscular Hemoglobin 30.8 pg (28.0-34.0); Mean Corpuscular Volume 95.2 fL (80-94); Mean Platelet Volume 8.7 fL (7.4-10.4); Monocytes # 0.4 10^3/uL (0.2-0.9); Monocytes % 5.1 %; Neutrophils # 6.06 10^3/uL (1.8-7.7); Neutrophils % 85.4 %; Nucleated Red Blood Cells % 0 %; Platelet Count 148 10^3/cmm (130-400); Red Blood Count 4.15 10^6/uL (4.1-5.3); Red Cell Distribution Width 12.8 % (12.1-15.1); Troponin(5th) Baseline 17 ng/L (0-15); White Blood Count 7.1 10^3/uL (4.0-10.0)
--- NOTE | 2019-12-13 01:58 | W.ED.AMS ---
HPI - Altered Mental Status General: Chief Complaint: Altered Mental Status Stated Complaint: FEVER/AMS Time Seen by Provider: 12/13/19 00:57 Source: patient Mode of arrival: EMS Limitations: no limitations History of Present Illness: HPI narrative: Mr. Silva is a nice 74-year-old male who comes in complaining of fever. He states he is short of breath and has a dry cough. Symptoms have been going on for the past 2 days. He denies headache, neck pain, chest pain, abdominal pain, flank pain, but does have some dysuria. Patient does not believe he has been around anyone else sick. Patient is not been vomiting has not had diarrhea. Patient otherwise has no complaints but does state for the past 2 days he has been very fatigued and has not had much to eat or drink. Review of Systems Const: Reports: fever(s), chills, body aches, fatigue and malaise; Denies: diaphoresis Eyes: Denies: change in vision, blurry vision, photophobia, eye discomfort, eye discharge, eye redness or yellow eyes ENMT: Denies: throat pain, odynophagia, hoarseness, swelling of lips/tongue, ear or mastoid pain, ear discharge, change in hearing or nasal discharge Card: Denies: chest pain, palpitations, irregular heart rhythm, edema, lightheadedness, syncope, pre-syncope, dyspnea on exertion or orthopnea Resp: Reports: dyspnea and non-productive cough; Denies: productive cough, wheezing, hemoptysis or chest congestion GI: Denies: abdominal pain, nausea, vomiting, hematemesis, coffee ground emesis, heartburn, diarrhea, constipation, GI cramping, hematochezia or melena : Reports: dysuria; Denies: flank pain, urinary frequency, urinary urgency or hematuria Musc: Denies: neck pain, back pain, extremity pain, extremity swelling, joint pain, joint swelling, joint redness, joint warmth or joint stiffness Skin/Breast: Denies: rash, pruritus, erythema, skin pain or skin tenderness Neuro: Denies: headache(s), numbness in extremities, weakness in extremities, sensory changes, lack of coordination, difficulty walking, dizziness, vertigo, confusion, Slurred speech present or seizure-like activity Cliff/Lymph: Denies: easy bruising, easy bleeding, petechiae, purpura or enlarged lymph nodes All/Imm: Denies: urticaria, throat swelling, tongue swelling, facial swelling or acute wheezing PFSH ED PFSH: Medical History Bloody stool Change in bowel habit Depression GENESIS (generalized anxiety disorder) GERD (gastroesophageal reflux disease) Hypertension Melena Recurrent UTI Squamous cell carcinoma of penis Urethral stricture Surgical History History of knee surgery History of laparoscopic cholecystectomy Family History Denies family history of Anesthesia complication Bleeding disorder Social History Smoking and tobacco status: never smoked Second hand smoke exposure: No Alcohol intake: current Alcohol intake frequency: holidays/special occasions only Alcohol type: beer Desire information about alcohol rehabilitation?: No Adopted: No Caregiver/support person: Yes Lives independently: Yes Household members: significant other Housing: House Marital status: / Highest education level completed: High School Graduate service: No Current occupational status: retired Current occupational exposures/hazards: No Pets and animals: No History of recent travel: No Sexually active: No Current gender identity: Male Tri/Oriental Orthodox: Congregational Special tri needs: No Agree to transfusion: No Financial difficulty paying for basics: Decline to Answer Physical Exam Const: COMMON NORMALS: no acute distress, patient oriented x3, no limitations and alert GENERAL APPEARANCE: cooperative HENMT: COMMON NORMALS: normocephalic, atraumatic, external ears normal, EAC's normal and Normal external nose present HEAD & SCALP: normal to inspection, normocephalic and atraumatic FACE & SINUS: normal facial exam and face symmetric NOSE: Normal external nose present and Normal nares present EXTERNAL EAR: Yes external ears normal EXTERNAL AUDITORY CANAL: EAC's normal MOUTH: Normal oral and palatal mucosa present, lip normal and tongue normal Eye: COMMON NORMALS: Equal, round and reactive pupils present and conjunctivae normal GENERAL EYE: appearance normal, both eyes and all related structures ALIGNMENT: Yes alignment normal PERIORBITAL: periorbital findings normal EYELID: eyelids normal CONJUNCTIVA: Yes conjunctivae normal SCLERA: sclerae normal PUPIL: Yes Equal, round and reactive pupils present Neck/C-Spine: COMMON NORMALS: full ROM, no lymphadenopathy, supple, no meningeal signs and no JVD GENERAL: Yes normal visual inspection and Yes trachea midline Chest: COMMONS NORMALS: normal inspection of the chest and normal palpation of entire chest wall Resp: COMMON NORMALS: normal respiratory effort, No retractions, No use of accessory muscles and clear to auscultation bilaterally EFFORT & INSPECTION: Yes able to speak in complete sentences and Yes symmetric chest movement AUSCULTATION: clear to auscultation bilaterally, no crackles, no rales, no rhonchi and no wheezes Cardio: COMMON NORMALS: no JVD, regular rate, regular rhythm, S1 normal heart sound present and S2 normal heart sound present RATE: regular rate RHYTHM: regular rhythm HEART SOUNDS: S1 normal heart sound present, S2 normal heart sound present, no click, no gallops, no murmurs and no rubs GI: COMMON NORMALS: Soft to palpation and No hepatosplenomegaly present PALPATION: Yes Soft to palpation, No Tenderness to palpation present (GI), No Guarding due to palpation present (GI), No Rigid due to palpation, Yes No hepatosplenomegaly present, No Hernia present, No Palpable mass present and No Pulsatile mass present : COMMON NORMALS: Yes no CVA tenderness BLADDER/KIDNEY EXAM: Yes no CVA tenderness Back/Pelvis: COMMON NORMALS: no CVA tenderness, thoracic and lumbar spine normal to inspection, no thoracic nor lumbar tenderness and thoraco-lumbar ROM normal Extremity: COMMON NORMALS: normal to inspection, full ROM, capillary refill normal, no joint enlargement, no clubbing, cyanosis or edema and no calf tenderness Neuro: COMMON NORMALS: patient oriented x3, CN's II-XII intact bilaterally, moves all extremities, no focal motor deficits and no sensory deficits noted SENSORIUM/ORIENTATION: Yes alert MENINGEAL SIGNS: Yes no meningeal signs SPEECH: speech normal Psych: COMMON NORMALS: mental status grossly normal, Normal thought process present, cooperative, normal affect, speech normal and activity/motor behavior normal SPEECH: Yes normal speech THOUGHT PROCESS: Normal thought process present Skin: COMMON NORMALS: no rashes or lesions noted, turgor normal, no jaundice, no petechiae and no mottling GENERAL SKIN EXAM: no rashes or lesions noted and turgor normal Course Vital Signs: Vital signs: Vital Signs Temperature 98.7 F 12/13/19 04:30 Pulse Rate 62 12/13/19 04:30 Respiratory Rate 20 H 12/13/19 04:30 Blood Pressure 96/43 12/13/19 04:30 Pulse Oximetry 93 12/13/19 04:30 MDM - Altered Mental Status MDM Narrative: Medical decision making narrative: Patient appears to be septic from a UTI. He is mentation is improving with IV hydration and fever control here. He has been hemodynamically stable. I have endorsed the case to Dr. Rock he agrees to go ahead and admit for further evaluation and care. Lab Data: Attestation: I reviewed the patient's lab results. Labs: Lab Results 12/13/19 12/13/19 12/13/19 Range/Units 01:10 01:10 01:10 WBC 7.1 (4.0-10.0) 10^3/ uL RBC 4.15 (4.1-5.3) 10^6/u L Hgb 12.8 (11.7-16.6) g/dL Hct 39.5 L (42.0-52.0) % MCV 95.2 H (80-94) fL MCH 30.8 (28.0-34.0) pg MCHC 32.4 (30.0-36.0) g/dL RDW 12.8 (12.1-15.1) % Plt Count 148 (130-400) 10^3/c mm MPV 8.7 (7.4-10.4) fL Neut % (Auto) 85.4 % Lymph % (Auto) 7.8 % Warrick % (Auto) 5.1 % Eos % (Auto) 1.0 % Baso % (Auto) 0.4 % Neut # (Auto) 6.06 (1.8-7.7) 10^3/u L Lymph # (Auto) 0.6 L (0.8-4.8) 10^3/u L Warrick # (Auto) 0.4 (0.2-0.9) 10^3/u L Eos # (Auto) 0.1 (0.0-0.8) 10^3/u L Baso # (Auto) 0.0 (0.0-0.1) 10^3/u L Nucleated RBC % (a uto) 0 % Nucleated RBCs # 0.0 /100WBC PT (12.1-14.9) SECO NDS INR (0.8-1.2) Fibrinogen (174-498) mg/dL D-Dimer (0-0.59) ug/mIFE U Specimen Type Sample Site ABG pH (7.35-7.45) ABG pCO2 (35-45) mmHg ABG pO2 (80.0-100.0) mmH g ABG HCO3 (22-26) mmol/L ABG Base Excess (-2.0-2.0) mmol/ L Dmitry Test Hematocrit (42-52) % Real Estate Firm Manager ID Sodium 138 (136-145) mmol/L Potassium 4.2 (3.5-5.1) mmol/L Chloride 105 (98-107) mmol/L Carbon Dioxide 20 L (22-29) mmol/L Anion Gap 17.2 (5-19) BUN 34 H (8-23) mg/dL Creatinine 2.0 H (0.7-1.2) mg/dL GFR Calculation Not Reportable Glucose 101 (65-115) mg/dL Calculated Osmolal ity 294 (285-295) mOsm/k g Lactic Acid 1.8 (0.5-2.2) mmol/L Calcium 9.9 (8.5-10.5) mg/dL Magnesium 1.7 (1.7-2.3) mg/dL Ferritin (30-400) ng/mL Total Bilirubin 0.6 (0.15-1.2) mg/dL AST 15 (0-40) U/L ALT 12 (0-41) U/L Alkaline Phosphata se 97 (40-130) IU/L Lactate Dehydrogen ase (135-225) U/L Troponin T Baselin e (0-15) ng/L C-Reactive Protein (0.0-4.9) mg/L Total Protein 6.3 L (6.6-8.7) g/dL Albumin 4.2 (3.5-5.2) g/dL Globulin 2.1 (1.3-4.6) g/dL Lipase 40 (13-60) U/L Procalcitonin (0-0.5) ng/mL Urine Color (Yellow) Urine Appearance (CLEAR) Urine pH (5-7) Ur Specific Gravit y (1.005-1.030) Urine Protein (Negative) Urine Glucose (UA) (Normal) Urine Ketones (Negative) Urine Blood (Negative) Urine Nitrate (Negative) Urine Bilirubin (Negative) Urine Urobilinogen (Negative) mg/dL Ur Leukocyte Giselle ase (Negative) Urine RBC (0-2) /hpf Urine WBC (0-5) /hpf Ur Squamous Epith Cells (0-5) /hpf Amorphous Sediment Urine Bacteria (NONE) /hpf Influenza Type A A g (Negative) Influenza Type B A g (Negative) SARS-CoV-2 Ag (Rap id) (Negative) 12/13/19 12/13/19 12/13/19 Range/Units 01:10 01:10 01:30 WBC (4.0-10.0) 10^3/ uL RBC (4.1-5.3) 10^6/u L Hgb (11.7-16.6) g/dL Hct (42.0-52.0) % MCV (80-94) fL MCH (28.0-34.0) pg MCHC (30.0-36.0) g/dL RDW (12.1-15.1) % Plt Count (130-400) 10^3/c mm MPV (7.4-10.4) fL Neut % (Auto) % Lymph % (Auto) % Warrick % (Auto) % Eos % (Auto) % Baso % (Auto) % Neut # (Auto) (1.8-7.7) 10^3/u L Lymph # (Auto) (0.8-4.8) 10^3/u L Warrick # (Auto) (0.2-0.9) 10^3/u L Eos # (Auto) (0.0-0.8) 10^3/u L Baso # (Auto) (0.0-0.1) 10^3/u L Nucleated RBC % (a uto) % Nucleated RBCs # /100WBC PT 14.20 (12.1-14.9) SECO NDS INR 1.07 (0.8-1.2) Fibrinogen (174-498) mg/dL D-Dimer (0-0.59) ug/mIFE U Specimen Type Sample Site ABG pH (7.35-7.45) ABG pCO2 (35-45) mmHg ABG pO2 (80.0-100.0) mmH g ABG HCO3 (22-26) mmol/L ABG Base Excess (-2.0-2.0) mmol/ L Dmitry Test Hematocrit (42-52) % Real Estate Firm Manager ID Sodium (136-145) mmol/L Potassium (3.5-5.1) mmol/L Chloride (98-107) mmol/L Carbon Dioxide (22-29) mmol/L Anion Gap (5-19) BUN (8-23) mg/dL Creatinine (0.7-1.2) mg/dL GFR Calculation Glucose (65-115) mg/dL Calculated Osmolal ity (285-295) mOsm/k g Lactic Acid (0.5-2.2) mmol/L Calcium (8.5-10.5) mg/dL Magnesium (1.7-2.3) mg/dL Ferritin 328 (30-400) ng/mL Total Bilirubin (0.15-1.2) mg/dL AST (0-40) U/L ALT (0-41) U/L Alkaline Phosphata se (40-130) IU/L Lactate Dehydrogen ase 214 (135-225) U/L Troponin T Baselin e 17 H (0-15) ng/L C-Reactive Protein 30.3 H (0.0-4.9) mg/L Total Protein (6.6-8.7) g/dL Albumin (3.5-5.2) g/dL Globulin (1.3-4.6) g/dL Lipase (13-60) U/L Procalcitonin 0.19 (0-0.5) ng/mL Urine Color (Yellow) Urine Appearance (CLEAR) Urine pH (5-7) Ur Specific Gravit y (1.005-1.030) Urine Protein (Negative) Urine Glucose (UA) (Normal) Urine Ketones (Negative) Urine Blood (Negative) Urine Nitrate (Negative) Urine Bilirubin (Negative) Urine Urobilinogen (Negative) mg/dL Ur Leukocyte Giselle ase (Negative) Urine RBC (0-2) /hpf Urine WBC (0-5) /hpf Ur Squamous Epith Cells (0-5) /hpf Amorphous Sediment Urine Bacteria (NONE) /hpf Influenza Type A A g (Negative) Influenza Type B A g (Negative) SARS-CoV-2 Ag (Rap id) (Negative) 12/13/19 12/13/19 12/13/19 Range/Units 01:30 01:30 01:35 WBC (4.0-10.0) 10^3/ uL RBC (4.1-5.3) 10^6/u L Hgb (11.7-16.6) g/dL Hct (42.0-52.0) % MCV (80-94) fL MCH (28.0-34.0) pg MCHC (30.0-36.0) g/dL RDW (12.1-15.1) % Plt Count (130-400) 10^3/c mm MPV (7.4-10.4) fL Neut % (Auto) % Lymph % (Auto) % Warrick % (Auto) % Eos % (Auto) % Baso % (Auto) % Neut # (Auto) (1.8-7.7) 10^3/u L Lymph # (Auto) (0.8-4.8) 10^3/u L Warrick # (Auto) (0.2-0.9) 10^3/u L Eos # (Auto) (0.0-0.8) 10^3/u L Baso # (Auto) (0.0-0.1) 10^3/u L Nucleated RBC % (a uto) % Nucleated RBCs # /100WBC PT (12.1-14.9) SECO NDS INR (0.8-1.2) Fibrinogen 441 (174-498) mg/dL D-Dimer 0.48 (0-0.59) ug/mIFE U Specimen Type Sample Site ABG pH (7.35-7.45) ABG pCO2 (35-45) mmHg ABG pO2 (80.0-100.0) mmH g ABG HCO3 (22-26) mmol/L ABG Base Excess (-2.0-2.0) mmol/ L Dmitry Test Hematocrit (42-52) % Real Estate Firm Manager ID Sodium (136-145) mmol/L Potassium (3.5-5.1) mmol/L Chloride (98-107) mmol/L Carbon Dioxide (22-29) mmol/L Anion Gap (5-19) BUN (8-23) mg/dL Creatinine (0.7-1.2) mg/dL GFR Calculation Glucose (65-115) mg/dL Calculated Osmolal ity (285-295) mOsm/k g Lactic Acid (0.5-2.2) mmol/L Calcium (8.5-10.5) mg/dL Magnesium (1.7-2.3) mg/dL Ferritin (30-400) ng/mL Total Bilirubin (0.15-1.2) mg/dL AST (0-40) U/L ALT (0-41) U/L Alkaline Phosphata se (40-130) IU/L Lactate Dehydrogen ase (135-225) U/L Troponin T Baselin e (0-15) ng/L C-Reactive Protein (0.0-4.9) mg/L Total Protein (6.6-8.7) g/dL Albumin (3.5-5.2) g/dL Globulin (1.3-4.6) g/dL Lipase (13-60) U/L Procalcitonin (0-0.5) ng/mL Urine Color (Yellow) Urine Appearance (CLEAR) Urine pH (5-7) Ur Specific Gravit y (1.005-1.030) Urine Protein (Negative) Urine Glucose (UA) (Normal) Urine Ketones (Negative) Urine Blood (Negative) Urine Nitrate (Negative) Urine Bilirubin (Negative) Urine Urobilinogen (Negative) mg/dL Ur Leukocyte Giselle ase (Negative) Urine RBC (0-2) /hpf Urine WBC (0-5) /hpf Ur Squamous Epith Cells (0-5) /hpf Amorphous Sediment Urine Bacteria (NONE) /hpf Influenza Type A A g (Negative) Influenza Type B A g (Negative) SARS-CoV-2 Ag (Rap id) Negative (Negative) 12/13/19 12/13/19 12/13/19 Range/Units 01:35 02:10 02:25 WBC (4.0-10.0) 10^3/ uL RBC (4.1-5.3) 10^6/u L Hgb (11.7-16.6) g/dL Hct (42.0-52.0) % MCV (80-94) fL MCH (28.0-34.0) pg MCHC (30.0-36.0) g/dL RDW (12.1-15.1) % Plt Count (130-400) 10^3/c mm MPV (7.4-10.4) fL Neut % (Auto) % Lymph % (Auto) % Warrick % (Auto) % Eos % (Auto) % Baso % (Auto) % Neut # (Auto) (1.8-7.7) 10^3/u L Lymph # (Auto) (0.8-4.8) 10^3/u L Warrick # (Auto) (0.2-0.9) 10^3/u L Eos # (Auto) (0.0-0.8) 10^3/u L Baso # (Auto) (0.0-0.1) 10^3/u L Nucleated RBC % (a uto) % Nucleated RBCs # /100WBC PT (12.1-14.9) SECO NDS INR (0.8-1.2) Fibrinogen (174-498) mg/dL D-Dimer (0-0.59) ug/mIFE U Specimen Type Arterial Sample Site Radial, left ABG pH 7.40 (7.35-7.45) ABG pCO2 34.9 L (35-45) mmHg ABG pO2 68.4 L (80.0-100.0) mmH g ABG HCO3 21.7 L (22-26) mmol/L ABG Base Excess -2.5 L (-2.0-2.0) mmol/ L Dmitry Test Pos Hematocrit 39.5 L (42-52) % Real Estate Firm Manager ID ellpe Sodium (136-145) mmol/L Potassium (3.5-5.1) mmol/L Chloride (98-107) mmol/L Carbon Dioxide (22-29) mmol/L Anion Gap (5-19) BUN (8-23) mg/dL Creatinine (0.7-1.2) mg/dL GFR Calculation Glucose (65-115) mg/dL Calculated Osmolal ity (285-295) mOsm/k g Lactic Acid (0.5-2.2) mmol/L Calcium (8.5-10.5) mg/dL Magnesium (1.7-2.3) mg/dL Ferritin (30-400) ng/mL Total Bilirubin (0.15-1.2) mg/dL AST (0-40) U/L ALT (0-41) U/L Alkaline Phosphata se (40-130) IU/L Lactate Dehydrogen ase (135-225) U/L Troponin T Baselin e (0-15) ng/L C-Reactive Protein (0.0-4.9) mg/L Total Protein (6.6-8.7) g/dL Albumin (3.5-5.2) g/dL Globulin (1.3-4.6) g/dL Lipase (13-60) U/L Procalcitonin (0-0.5) ng/mL Urine Color Yellow (Yellow) Urine Appearance Sl hazy (CLEAR) Urine pH 5 (5-7) Ur Specific Gravit y 1.005 (1.005-1.030) Urine Protein Neg (Negative) Urine Glucose (UA) Norm (Normal) Urine Ketones Negative (Negative) Urine Blood Neg (Negative) Urine Nitrate Negative (Negative) Urine Bilirubin Neg (Negative) Urine Urobilinogen Norm (Negative) mg/dL Ur Leukocyte Giselle ase 1+ H (Negative) Urine RBC 0-4 H (0-2) /hpf Urine WBC >100 H (0-5) /hpf Ur Squamous Epith Cells 0-4 H (0-5) /hpf Amorphous Sediment Not Reportable Urine Bacteria 1+ H (NONE) /hpf Influenza Type A A g Negative (Negative) Influenza Type B A g Negative (Negative) SARS-CoV-2 Ag (Rap id) (Negative) Imaging Data^: CXR: Attestation: I personally reviewed and interpreted this imaging study as follows: My impression: No acute cardiopulmonary findings. EKG Data^: EKG 1: Attestation: I personally reviewed and interpreted this EKG as follows: EKG interpretation date: 12/13/19 EKG interpretation time: 01:33 Discharge Plan Discharge Patient Disposition: Admitted As Inpatient Clinical Impression: Sepsis, Recurrent UTI Condition: Stable Prescriptions: No Action mirtazapine 15 mg tablet 15 mg PO QDAY RF: 0 escitalopram oxalate 10 mg tablet 10 mg PO QDAY Qty: 30 RF: 11 Eliquis 5 mg tablet 5 mg PO BID RF: 0 Hold Instructions: Resume on 03/25/19. metoprolol tartrate 25 mg tablet 25 mg PO QID RF: 0 methenamine hippurate 1 gram tablet 1 gm PO BID Qty: 60 RF: 12 ascorbic acid (vitamin C) 1,000 mg tablet 1 gm PO BID RF: 0 Complete Multivitamin Tablet 1 tab PO ONCE RF: 0 hydrocodone-acetaminophen [[place]] 7.5-325 mg tablet 1 tab PO BID PRN (Reason: Pain) RF: 0 Xanax 1 mg tablet 1 mg PO BID PRN (Reason: anxiety) Qty: 60 RF: 5 paroxetine HCl 20 mg tablet 20 mg PO DAILY RF: 0 omeprazole 20 mg capsule,delayed release(DR/EC) 20 mg PO DAILY RF: 0 cetirizine [Zyrtec] 10 mg tablet 10 mg PO DAILY PRN (Reason: allergy symptoms) RF: 0 lisinopril 10 mg tablet 10 mg PO DAILY RF: 0 Naprosyn 500 mg tablet 500 mg PO BID PRN (Reason: pain) Qty: 20 RF: 0 Robaxin-750 750 mg tablet 750 mg PO Q6H Qty: 30 RF: 0 Referrals: Mey Garnica MD [Primary Care Provider] - Coding Level of Care Code ED Clinical Nurse Occupational Medicine for Chg Fwd Exam Comprehensive
--- NOTE | 2019-12-13 02:13 | PC.NURSE ---
Attempt to place 18 Fr macias unsuccessful-- attempt to place 12 Fr macias unsuccessful
[2019-12-13 02:14] LABS: SARS Covid-2 Antigen Negative (Negative)
[2019-12-13 02:15] LABS: Influenza A by IFA Negative (Negative); Influenza B by IFA Negative (Negative)
[2019-12-13 02:19] LABS: ABG PCO2 34.9 mmHg (35-45); Arterial Blood Gas Hematocrit 39.5 % (42-52); Base Excess ABG -2.5 mmol/L (-2.0-2.0); Blood Gas Allen Test Pos; Blood Gas Sample Site Radial, left; Blood Gas Sample Type Arterial; HCO3 ABG 21.7 mmol/L (22-26); PO2 ABG 68.4 mmHg (80.0-100.0)
[2019-12-13 02:41] LABS: INR 1.07 (0.8-1.2)
[2019-12-13 02:45] LABS: D Dimer 0.48 ug/mIFEU (0-0.59)
--- NOTE | 2019-12-13 03:07 | ECG_ITS ---
[facility] Test Date: 2019-12-13 Pat Name: Mike Silva Department: Room: Gender: Male Program Research Specialist: : 1945 Requested By: Soniya Nieves Order Number: [id number] Still MD: Toro Fonseca M.D. Measurements Intervals [place] Rate: 67 P: 26 ND: 150 QRS: -5 QRSD: 87 T: 41 QT: 394 QTc: 419 Interpretive Statements SINUS RHYTHM WITH MARKED SINUS ARRHYTHMIA Compared to ECG 12/13/2019 01:33:17 No significant changes Electronically Signed On 12-14-2019 20:53:44 CDT by Toro Fonseca M.D. [id number]
[2019-12-13 03:14] LABS: Bilirubin Urine Neg (Negative); Blood Urine Neg (Negative); Glucose Urine UA Norm (Normal); Ketones Urine Negative (Negative); Leukocyte Esterase Urine 1+ (Negative); Nitrate Urine Negative (Negative); Protein Urine Neg (Negative); Specific Gravity, Urine 1.005 (1.005-1.030); Urine Appearance SL Hazy (CLEAR); Urine Color Yellow (Yellow); Urobilinogen Urine Norm (Negative); pH Urine 5 (5-7)
[2019-12-13 03:15] LABS: Add Urine Culture? Yes; Bacteria Urine 1+ /hpf; RBC Urine 0-4 /hpf (0-2); Squamous Epithelial Cell Urine 0-4 /hpf (0-5); WBC Urine >100 /hpf (0-5)
[2019-12-13] MEDS: cefTRIAXone 1,000 MG in sodium chloride 0.9% (plus) 50 ML 100 MG IV (03:40)
--- NOTE | 2019-12-13 03:47 | PM.HP ---
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 Patient is stating that his symptoms started today when he went to his bed around 10 PM, his quilt was not able to keep himself warm, he started experiencing fever with chills, he was shaking really bad (to the point that he could not get up to get another blanket). He has not noticed any chest pain, shortness of breath, excessive sputum production, diarrhea, neck pain, headache or blurry vision. Follows up with Dr. Encinas. Diagnosis in the ER revealed sepsis, abnormal UA, he has been given ceftriaxone, Tylenol 1 g, Covid antigen negative, temperature 102, tachypnea respiratory rate 20 Review of Systems Const: Reports: fever(s), chills, body aches and fatigue Eyes: Denies: change in vision ENMT: Denies: throat pain Card: Denies: chest pain Resp: Denies: dyspnea GI: Denies: abdominal pain : Reports: difficulty urinating, dysuria, urinary frequency and urinary urgency Musc: Denies: neck pain Skin/Breast: Reports: lesions Neuro: Denies: headache(s) Psych: Denies: anxiety Endo: Denies: polyuria Cliff/Lymph: Denies: easy bruising All/Imm: Denies: urticaria Medications/Allergies Home Medications Medication Instructions Recorded Confirmed Last Taken Type hydrocodone 7.5 mg-acetaminophen 1 tab PO BID PRN 03/13/19 11/27/19 10/17/19 History 325 mg tablet multivitamin,nt-gggo-dhipzmjm 1 tab PO ONCE 03/13/19 11/27/19 03/21/19 History apixaban 5 mg tablet 5 mg PO BID tab 03/20/19 11/27/19 10/17/19 History escitalopram oxalate 10 mg tablet 10 mg PO QDAY #30 tab 03/20/19 11/27/19 10/17/19 Rx mirtazapine 15 mg tablet 15 mg PO QDAY 03/20/19 11/27/19 10/17/19 History omeprazole 20 mg PO DAILY 03/21/19 11/27/19 10/17/19 History paroxetine HCl 20 mg PO DAILY 03/21/19 11/27/19 10/16/19 History metoprolol tartrate 25 mg tablet 25 mg PO QID tab 04/06/19 11/27/19 10/17/19 History methenamine hippurate 1 gram tablet 1 gm PO BID #60 tab 08/03/19 11/27/19 10/16/19 Rx cetirizine 10 mg tablet 10 mg PO DAILY PRN 09/18/19 11/27/19 10/17/19 History ascorbic acid (vitamin C) 1,000 mg 1 gm PO BID tab 09/19/19 11/27/19 10/16/19 History tablet lisinopril 10 mg PO DAILY 10/17/19 11/27/19 10/17/19 History methocarbamol [Robaxin-750] 750 mg PO Q6H #30 tab 10/17/19 11/27/19 Unknown Rx naproxen [Naprosyn] 500 mg PO BID PRN #20 tab 10/17/19 11/27/19 Unknown Rx alprazolam 1 mg tablet 1 mg PO BID PRN #60 tab 11/16/19 11/27/19 Unknown Rx Allergies Allergy/AdvReac Type Severity Reaction Status Date / Time Penicillins Allergy Intermediate rash Verified 12/13/19 00:55 PFSH Acute PFSH: Medical History Bloody stool Change in bowel habit Depression GENESIS (generalized anxiety disorder) GERD (gastroesophageal reflux disease) Hypertension Melena Recurrent UTI Squamous cell carcinoma of penis Urethral stricture Surgical History History of knee surgery History of laparoscopic cholecystectomy Family History Denies family history of Anesthesia complication Bleeding disorder Social History Smoking and tobacco status: never smoked Second hand smoke exposure: No Alcohol intake: current Alcohol intake frequency: holidays/special occasions only Alcohol type: beer Desire information about alcohol rehabilitation?: No Adopted: No Caregiver/support person: Yes Lives independently: Yes Household members: significant other Housing: House Marital status: / Highest education level completed: High School Graduate service: No Current occupational status: retired Current occupational exposures/hazards: No Pets and animals: No History of recent travel: No Sexually active: No Current gender identity: Male Tri/Congregation: [employer] Special tri needs: No Agree to transfusion: No Financial difficulty paying for basics: Decline to Answer Vitals/I&O/Wt Last Vital Signs Temp 102.7 F H 12/13/19 00:47 Pulse 64 12/13/19 03:00 Resp 18 12/13/19 03:00 BP 117/22 12/13/19 03:00 Pulse Ox 94 12/13/19 03:00 Weight last 48 hrs Weight 90.718 kg Physical Exam Narrative: EXAM NARRATIVE: Appears stated age male laying in his bed with multiple layers of blankets Appears dehydrated, well-built S1, S2 no tachycardia or signs of heart failure Abdomen soft nontender bowel sound present Lower extremity no edema gangrene ulcer Neurologically no focal deficit EOMI, PERRLA Lungs are clear to auscultation Small penile shaft, no active drainage Appropriate mood and affect Data : 12/13/19 01:10 12/13/19 01:10 Micro: Microbiology 12/13/19 01:10 Blood Culture - Preliminary Blood SPECIMEN COLLECTED 12/13/19 01:10 Blood Culture - Preliminary Blood SPECIMEN COLLECTED A&P Assessment and plan (1) Recurrent UTI: Status: Acute (2) Sepsis: Status: Acute Additional A&P Information Sepsis due to UTI Sepsis criteria met with fever and tachypnea History of recurrent UTIs, history of urethral stricture Previous urine culture grew Enterococcus faecalis and Citrobacter, sensitive to cephalosporins I would use ceftriaxone for now, resuscitate with fluid/normal saline Follow-up with urine culture Covid antigen negative, no other source of infection identified, Acute on chronic kidney disease,: Baseline creatinine 1.5-1.7, current creatinine 2, renal ultrasound to rule out hydronephrosis, discontinue lisinopril, and naproxen Patient is on Eliquis 5 mg twice a day without clear indication, kindly follow-up with PCP to figure out the indication, patient is unaware why he is on anticoagulant Full code Cardiac diet DVT prophylaxis: Continue Eliquis for now, reduced dose secondary to high creatinine Attestations Medical Necessity Statement*: Stay in the hospital cross more than 2 midnights continued IV antibiotics for sepsis secondary to UTI, Time Spent in Patient Care: (>than 50% of time spent in counselling and/or direct pt care on unit). 50 minutes minutes Coding Level of Care Code Acute Interpretive Naturalist for [facility] Fwd Diagnoses Recurrent UTI N39.0 Sepsis A41.9
[2019-12-13 04:19] LABS: Procalcitonin 0.19 ng/mL (0-0.5)
[2019-12-13 04:20] LABS: Fibrinogen 441 mg/dL (174-498)
--- NOTE | 2019-12-13 04:31 | PC.SOCIAL ---
Attempted to see patient in Emergency Department. He was sleeping soundly ([id number]) and would not awake to my voice. No previous hospitalizations found in EHR. No family at bedside.
[2019-12-13 04:32] LABS: C Reactive Protein 30.3 mg/L (0.0-4.9); Ferritin 328 ng/mL (30-400); Lactate Dehydrogenase 214 U/L (135-225)
--- NOTE | 2019-12-13 05:42 | US_ITS ---
WS: [id number] RENAL ULTRASOUND HISTORY: Rule out hydronephrosis COMPARISON: 03/06/2019 TECHNIQUE: 2-D and color Doppler imaging of the kidney submitted. Right kidney: 11.3 cm x 5.8 cm x 5.4 cm. Normal size kidney. No hydronephrosis. Exophytic stable cyst from the mid kidney measures 1.3 x 1.3 x 1.2 cm. Left kidney: 10.8 cm x 5.3 cm x 5.7 cm. Normal size kidney. Kidney is poorly visualized due to body habitus. No abnormality is identified. Aorta: Normal. Urinary Bladder: Normal distention. US/US renal BI* [id number] IMPRESSION: 1. No hydronephrosis. 2. Stable 1.3 cm RIGHT renal cyst.
[2019-12-13 06:34] LABS: Basophils % 0.4 %; Eosinophils # 0.1 10^3/uL (0.0-0.8); Eosinophils % 0.9 %; Hematocrit 39.3 % (42.0-52.0); Hemoglobin 12.4 g/dL (11.7-16.6); Lymphocytes % 13.9 %; Mean Corpuscular HGB Conc 31.6 g/dL (30.0-36.0); Mean Corpuscular Volume 98.3 fL (80-94); Mean Platelet Volume 8.8 fL (7.4-10.4); Monocytes # 0.5 10^3/uL (0.2-0.9); Monocytes % 6.7 %; Neutrophils # 5.48 10^3/uL (1.8-7.7); Neutrophils % 77.8 %; Nucleated Red Blood Cells % 0 %; Platelet Count 132 10^3/cmm (130-400); Red Cell Distribution Width 12.8 % (12.1-15.1)
[2019-12-13 07:02] LABS: Blood Urea Nitrogen 31 mg/dL (8-23); Calcium 9.6 mg/dL (8.5-10.5); Carbon Dioxide 21 mmol/L (22-29); Chloride 106 mmol/L (98-107); Glucose 114 mg/dL (65-115); Osmolality Calculated 289 mOsm/kg (285-295); Sodium 136 mmol/L (136-145)
[2019-12-13 07:04] LABS: Anion Gap 13.3 (5-19); Potassium 4.3 mmol/L (3.5-5.1)
[2019-12-13] MEDS: methocarbamol 750 mg Tablet PO ×3 (08:56→21:13)
[2019-12-13] MEDS: apixaban 5 mg Tablet PO ×2 (09:03→17:52)
[2019-12-13] MEDS: pantoprazole DR 40 mg Tablet PO (09:03)
[2019-12-13] MEDS: metoprolol tartrate 25 mg Tablet PO ×4 (09:03→21:13)
[2019-12-13] MEDS: PARoxetine 20 mg Tablet PO (09:03)
--- NOTE | 2019-12-13 11:18 | PM.PN ---
Subjective Subjective: Interval history: Patient denies shortness of breath or chest pain. Reports that at least once a week he needs to self catheterize. He is seeing Dr. Encinas on outpatient basis. He continues to be diaphoretic and feels febrile. Oral intake is poor. Cultures are negative so far. Vitals/I&O/Wt Last Vital Signs Temp 98.1 F 12/13/19 07:48 Pulse 66 12/13/19 08:41 Resp 16 12/13/19 08:41 BP 119/68 12/13/19 07:48 Pulse Ox 94 12/13/19 08:41 12/12/19 12/13/19 12/13/19 22:59 06:59 14:59 Intake Total 120 / 120 Balance 120 / 120 Weight last 48 hrs Weight 90.718 kg Physical Exam Const: COMMON NORMALS: no acute distress and patient oriented x3 Resp: COMMON NORMALS: normal respiratory effort and clear to auscultation bilaterally AUSCULTATION: clear to auscultation bilaterally Cardio: COMMON NORMALS: regular rate, regular rhythm and S2 normal heart sound present RATE: regular rate RHYTHM: regular rhythm HEART SOUNDS: S2 normal heart sound present OTHER: No lower extremity edema GI: COMMON NORMALS: Normal to inspection, nondistended, normoactive bowel sounds present, Soft to palpation and non-tender PALPATION: Yes Soft to palpation Neuro: COMMON NORMALS: patient oriented x3 and no focal motor deficits Data : 12/13/19 06:24 12/13/19 06:24 Micro: Microbiology 12/13/19 01:10 Blood Culture - Preliminary Blood SPECIMEN COLLECTED 12/13/19 01:10 Blood Culture - Preliminary Blood SPECIMEN COLLECTED A&P Assessment and plan (1) Recurrent UTI: Status: Acute (2) Sepsis: Status: Acute Qualifiers: Sepsis acute organ dysfunction status: unspecified Sepsis type: sepsis due to unspecified organism Qualified Code(s): A41.9 - Sepsis, unspecified organism Additional A&P Information Sepsis due to UTI Sepsis criteria met with fever and tachypnea History of recurrent UTIs, history of urethral stricture Previous urine culture grew Enterococcus faecalis and Citrobacter, sensitive to cephalosporins I would use ceftriaxone for now, resuscitate with fluid/normal saline Follow-up with urine culture Covid antigen negative, no other source of infection identified, Acute on chronic kidney disease,: Baseline creatinine 1.5-1.7, current creatinine 2, renal ultrasound to rule out hydronephrosis, discontinue lisinopril, and naproxen Patient is on Eliquis 5 mg twice a day without clear indication, kindly follow-up with PCP to figure out the indication, patient is unaware why he is on anticoagulant Full code Cardiac diet DVT prophylaxis: Continue Eliquis for now, reduced dose secondary to high creatinine PLAN: Continue current monitoring and treatment including IV fluids. Awaiting culture results. Continue monitoring vitals and if shows deterioration consider adding Levaquin and linezolid. Attestations Medical Necessity Statement*: Patient with UTI and sepsis requires close inpatient monitoring and treatment Time Spent in Patient Care: 16 - 35 minutes Coding Level of Care Code Acute Acid Cleaner for [facility] Fwd Diagnoses Recurrent UTI N39.0 Sepsis A41.9 Sepsis acute organ dysfunction status: unspecified Sepsis type: sepsis due to unspecified organism
[2019-12-13] MEDS: acetaminophen 325 mg Tablet 650 MG PO (15:35)
[2019-12-14] MEDS: cefTRIAXone 1,000 MG in sodium chloride 0.9% (plus) 50 ML 100 MG IV (03:37)
[2019-12-14] MEDS: methocarbamol 750 mg Tablet PO (03:37)
[2019-12-14 04:00] VITALS: BP 149/68; PULSE 66; RESP 24; TEMP 36.9; O2SAT 97
[2019-12-14 08:00] VITALS: BP 146/75; PULSE 53; RESP 18; O2SAT 95
--- NOTE | 2019-12-14 08:26 | P.DS_ITS ---
Discharge Providers Date of Admission: 12/13/19 05:42 Date of Discharge: December 14, 2019 Attending Provider at Admission: Flaquito Rock MD Attending Provider at Discharge: Darius Dexter MD Primary Care Provider: Mey Garnica MD Diagnoses at Discharge Discharge Diagnosis (1) Recurrent UTI: Status: Acute (2) Sepsis: Status: Acute Qualifiers: Sepsis acute organ dysfunction status: unspecified Sepsis type: sepsis due to unspecified organism Qualified Code(s): A41.9 - Sepsis, unspecified organism (3) Chronic kidney disease, stage III (moderate): Status: Acute Reason for Visit Reason for Visit: FEVER/AMS Hospital Course Discharge Summary: Patient post penile resection secondary to squamous cell cancer presents with sepsis secondary to urinary tract infection. He does once weekly self catheterizations which may not be enough. He was treated with ceftriaxone and gradually improved and this morning patient adamantly wants to leave. Reports that he has been having chronic diarrhea which is unchanged. He does not want to get morning labs and does not want to get stool studies. Reports that he absolutely needs to leave to take care of things at home. This morning patient is alert and oriented x3. He is able to recall name or present. I had extensive discussion regarding concerns of him leaving early including possibility C. difficile diarrhea which needs to be checked. Patient voiced un derstanding but refused to stay wants to sign AMA form. Reports that he needs to make sure that he does not take Bactrim as it causes him to hallucinate. Since patient responded to ceftriaxone well I will continue Omnicef for 10 more days. Patient was told to present back to ER should his condition worsen. He ambulates without difficulty. He denies any shortness of breath or chest pain this morning. Denies abdominal pain. We have again discussed regarding importance of sterile techniques with self catheterizations. Patient's grandson was called and he will comment take patient home. Reports that he already has appointment to see Dr. Encinas. Dougherty and muscle relaxant will be discontinued as it likely place a role in patient's urinary retention. Physical Exam Const: COMMON NORMALS: no acute distress and patient oriented x3 Resp: COMMON NORMALS: normal respiratory effort and clear to auscultation bilaterally AUSCULTATION: clear to auscultation bilaterally Cardio: COMMON NORMALS: regular rate, regular rhythm and S2 normal heart sound present RATE: regular rate RHYTHM: regular rhythm HEART SOUNDS: S2 normal heart sound present OTHER: No lower extremity edema GI: COMMON NORMALS: Normal to inspection, nondistended, normoactive bowel sounds present, Soft to palpation and non-tender PALPATION: Yes Soft to palpation Neuro: COMMON NORMALS: patient oriented x3 and no focal motor deficits Discharge Data Data Completed and Pending: Completed Studies During Hospitalization Category Date Time Status XR chest 1V giorgio ble [id number] Stat Exams 12/13/19 01:06 Completed US renal BI* [id number] Routine Ultrasound 12/13/19 05:42 Completed Pending at discharge Category Date Time Status Basic Metabolic P simran AM LABS Lab 12/15/19 04:00 Ordered Blood Culture Sta t Lab 12/13/19 01:10 Results Complete Blood Co unt w/Auto AM LABS Lab 12/15/19 04:00 Ordered Complete Blood Co unt w/Auto AM LABS Lab 12/15/19 04:00 Ordered Complete Blood Co unt w/Auto AM LABS Lab 12/16/19 04:00 Ordered Complete Blood Co unt w/Auto AM LABS Lab 12/17/19 04:00 Ordered Comprehensive Met abolic Panel AM LA BS Lab 12/15/19 04:00 Ordered Comprehensive Met abolic Panel AM LA BS Lab 12/16/19 04:00 Ordered Comprehensive Met abolic Panel AM LA BS Lab 12/17/19 04:00 Ordered Magnesium AM LABS Lab 12/15/19 04:00 Ordered Magnesium AM LABS Lab 12/16/19 04:00 Ordered Magnesium AM LABS Lab 12/17/19 04:00 Ordered Urine Culture Sta t Lab 12/13/19 02:25 Results Labs from last 24 hours 12/13/19 12/13/19 02:25 02:10 O2 Delivery Device Not Reportable Urine Color Yellow Urine Appearance Sl hazy Urine pH 5 Ur Specific Gravit y 1.005 Urine Protein Neg Urine Glucose (UA) Norm Urine Ketones Negative Urine Blood Neg Urine Nitrate Negative Urine Bilirubin Neg Urine Urobilinogen Norm Ur Leukocyte Giselle ase 1+ H Urine RBC 0-4 H Urine WBC >100 H Ur Squamous Epith Cells 0-4 H Urine Bacteria 1+ H Vitals: Last Vital Signs Temp 98.4 F 12/14/19 04:00 Pulse 53 L 12/14/19 08:00 Resp 18 12/14/19 08:00 BP 146/75 12/14/19 08:00 Pulse Ox 95 12/14/19 08:00 Discharge Plan Discharge Patient Disposition: Left Against Medical Advice Condition: Stable Prescriptions: New cefdinir 300 mg capsule 300 mg PO BID 10 Days Qty: 20 RF: 0 Continued mirtazapine 15 mg tablet 15 mg PO QDAY RF: 0 escitalopram oxalate 10 mg tablet 10 mg PO QDAY Qty: 30 RF: 11 Eliquis 5 mg tablet 5 mg PO BID RF: 0 Hold Instructions: Resume on 03/25/19. metoprolol tartrate 25 mg tablet 25 mg PO QID RF: 0 methenamine hippurate 1 gram tablet 1 gm PO BID Qty: 60 RF: 12 Complete Multivitamin Tablet 1 tab PO ONCE RF: 0 Xanax 1 mg tablet 1 mg PO BID PRN (Reason: anxiety) Qty: 60 RF: 5 paroxetine HCl 20 mg tablet 20 mg PO DAILY RF: 0 omeprazole 20 mg capsule,delayed release(DR/EC) 20 mg PO DAILY RF: 0 cetirizine [Zyrtec] 10 mg tablet 10 mg PO DAILY PRN (Reason: allergy symptoms) RF: 0 lisinopril 10 mg tablet 10 mg PO DAILY RF: 0 Naprosyn 500 mg tablet 500 mg PO BID PRN (Reason: pain) Qty: 20 RF: 0 Discontinued ascorbic acid (vitamin C) 1,000 mg tablet 1 gm PO BID RF: 0 hydrocodone-acetaminophen [Dougherty] 7.5-325 mg tablet 1 tab PO BID PRN (Reason: Pain) RF: 0 Robaxin-750 750 mg tablet 750 mg PO Q6H Qty: 30 RF: 0 Referrals: Mey Garnica MD [Primary Care Provider] - Discharge Diet: Advance as tolerated Discharge Activity: Increase activity as tolerated Activity Restrictions/Additional Instructions: Please call your doctor or present to emergency department if your condition worsens including diarrhea or you develop lightheadedness dizziness or see blood in your stool or black stool. Please present back to ER if your condition is not improving as we have discussed. Please follow-up with Dr. Encinas as scheduled and continue using sterile techniques during self-catheterizations. Discharge Attestations Time Spent in Discharge Care*: greater than 30 min Quality Metrics Clinical Quality Measures During this hospital stay, did patient experience: None Coding Level of Care Code Acute Tree Driller for [facility] Fwd Exam Detailed Diagnoses Recurrent UTI N39.0 Sepsis A41.9 Sepsis acute organ dysfunction status: unspecified Sepsis type: sepsis due to unspecified organism Chronic kidney disease, stage III (moderate) N18.30
--- NOTE | 2019-12-14 09:33 | PC.NURSE ---
PT LEFT AMA, DR STAFFORD WENT OVER IMPORTANCE OF STAYING TO RECEIVE TREATMENT AND TEST FOR C DIFF DUE TO PT COMPLAINING OF MEDICATION CAUSING DIARRHEA. NURSE WENT OVER IMPORTANCE OF STAYING, PT STILL INSISTED ON LEAVING. HE STATED HE WAS GOING TO WALK TO [facility] WHERE HIS GRANDDAUGHTER WORKS AND WILL DRIVE HIM HOME, THIS NURSE CALLED [facility] WHO WAS DRIVING 30 MINUTES TO PICK HIM UP. PT REFUSED TO STAY UP STAIRS IN ROOM UNTIL HE ARRIVED, THIS NURSE WALKED PT DOWN TO SURGICAL SERVICES ENTRANCE WHERE PT REFUSED TO STAY INSIDE TO WAIT AND WAS SITTING ON THE BENCH IN THE FRONT. [facility] NOTIFIED OF WHERE TO PICK PT UP AT. IV REMOVED, PAPERWORK SIGNED, AND PT VERBALIZED UNDERSTANDING OF RISKS.
[2019-12-14 09:43] VITALS: BP 146/75; PULSE 53; RESP 18; O2SAT 95
== END 2019-12-14 08:30 | disposition left against medical advice (07) | DRG 872 ==
LOC: ER 04:47 → MEDSURG 07:15
PROVIDERS: Emergency Medicine; Admitting Provider Internal Medicine; PCP Family Medicine; Visit Provider Internal Medicine
DX: A41.9 Sepsis, unspecified organism (principal); N39.0 Urinary tract infection, site not specified; N17.9 Acute kidney failure, unspecified; C60.9 Malignant neoplasm of penis, unspecified; Z98.890 Other specified postprocedural states; N35.919 Unspecified urethral stricture, male, unspecified site; Z87.440 Personal history of urinary (tract) infections; F32.9 Major depressive disorder, single episode, unspecified; F41.1 Generalized anxiety disorder; K21.9 Gastro-esophageal reflux disease without esophagitis; N18.30 Chronic kidney disease, stage 3 unspecified; Z79.01 Long term (current) use of anticoagulants; Z53.29 Procedure and treatment not carried out because of patient's decision for other reasons
CPT/HCPCS: 12345; 36415; 36600; 71045; 76770; 80048; 80053; 81001; 82728; 82803; 83605; 83615; 83690; 83735; 84145; 84484; 85025; 85378; 85384; 85610; 86140; 87040; 87077; 87086; 87186; 87426; 87804; 93005; 99284; J0696; J7030

== ENCOUNTER → 2019-12-21 14:34 | Outpatient (BNVA) | payer MEDICARE, MEDICAID, SELFPAY | PROVIDERS: PCP Internal Medicine; Visit Provider Nurse Practitioner Family | DX: N99.110 Postprocedural urethral stricture, male, meatal (principal); N39.0 Urinary tract infection, site not specified | CPT/HCPCS: 81003 ==

== ENCOUNTER → 2020-01-17 14:20 | Outpatient (BNVA) | payer MEDICARE, MEDICAID, SELFPAY | PROVIDERS: PCP Internal Medicine; Visit Provider Urology | DX: N39.0 Urinary tract infection, site not specified (principal); N99.110 Postprocedural urethral stricture, male, meatal; C60.9 Malignant neoplasm of penis, unspecified | CPT/HCPCS: 81003 ==

== ENCOUNTER 2020-02-16 13:16 | Outpatient (CLI) | payer MEDICARE, MEDICAID, SELFPAY ==
--- NOTE | 2020-02-16 13:20 | MR_ITS ---
WS: [id number] MRI RIGHT SHOULDER HISTORY: S43.401A - Unspecified sprain of right shoulder joint, initial encounter COMPARISON: None available. TECHNIQUE: Multiplanar sequences of the shoulder joint are submitted. Marked AC joint hypertrophy. Soft tissue and bone hypertrophy encroaching and deforming the supraspin atus tendon and muscle. There is a large amount of fluid in the subacromial and subdeltoid bursa. No os acromion. Biceps tendon at the bicipital groove is very small caliber. There is increase fluid ruddy ng the biceps tendon sheath. Large full-thickness tear involving the distal 3 cm of the supraspinatus tendon. There is a large flu id gap within the tendon. Tendinopathy of the distal infraspinatus tendon but it does appear to be in tact. Insertion site tear of the distal subscapularis tendon. Moderate atrophy of the supraspinatus m uscle. There is a large amount of loculated fluid in the subscapularis recess surrounding the subscap ularis muscle. Mild narrowing of the glenohumeral joint with osteophytes. Intrasubstance degeneration within the lab rum. No definite full-thickness tears are identified. There is marrow edema along the inferior glenoi d. Loss of the normal cartilage surrounding the humeral head. MR/MR shoulder RT wo con* [id number] IMPRESSION: 1. Large complete full-thickness tear with retraction of the tendon to the sup erior humeral head involving the supraspinatus tendon. 2. Insertion site tear subscapularis tendon without retraction. 3. Marked AC joint arthritis with encroachment and impingement upon the supras pinatus muscle. 4. Large amount of fluid in the subacromial and subdeltoid bursa and subscapul nicholas recesses. Moderate joint effusion surrounding the humeral head. 5. Advanced degenerative changes over the humeral head with narrowing of the g lenohumeral joint and marrow edema. 6. Suspect partially torn and dislocated biceps tendon.
== END 2020-02-16 13:17 | disposition home or self-care (01) ==
PROVIDERS: PCP Internal Medicine; Visit Provider Orthopaedic Surgery
DX: M75.121 Complete rotator cuff tear or rupture of right shoulder, not specified as traumatic (principal); M13.811 Other specified arthritis, right shoulder; S46.211A Strain of muscle, fascia and tendon of other parts of biceps, right arm, initial encounter; X58.XXXA Exposure to other specified factors, initial encounter; R60.0 Localized edema
CPT/HCPCS: 73221

== ENCOUNTER → 2020-03-25 17:46 | Outpatient (BNVA) | payer MEDICARE, MEDICAID, SELFPAY | PROVIDERS: PCP Internal Medicine; Visit Provider Orthopaedic Surgery | DX: Z01.812 Encounter for preprocedural laboratory examination (principal); Z20.828 Contact with and (suspected) exposure to other viral communicable diseases | CPT/HCPCS: 87635 ==

== ENCOUNTER → 2020-03-29 18:31 | Outpatient (BNVA) | payer MEDICARE, MEDICAID, SELFPAY | PROVIDERS: PCP Internal Medicine; Visit Provider Orthopaedic Surgery | DX: Z01.812 Encounter for preprocedural laboratory examination (principal); Z20.822 Contact with and (suspected) exposure to COVID-19 | CPT/HCPCS: 87635 ==

== ENCOUNTER 2020-04-01 15:17 | Outpatient (CLI) | payer MEDICARE, MEDICAID, SELFPAY ==
[2020-04-01 16:16] LABS: Basophils % 0.7 %; Eosinophils # 0.1 10^3/uL (0.0-0.8); Eosinophils % 1.4 %; Hematocrit 42.8 % (42.0-52.0); Hemoglobin 14.1 g/dL (11.7-16.6); Lymphocytes % 23.4 %; Mean Corpuscular HGB Conc 32.9 g/dL (30.0-36.0); Mean Corpuscular Hemoglobin 31.3 pg (28.0-34.0); Mean Corpuscular Volume 95.1 fL (80-94); Mean Platelet Volume 8.7 fL (7.4-10.4); Monocytes # 0.4 10^3/uL (0.2-0.9); Neutrophils # 2.81 10^3/uL (1.8-7.7); Neutrophils % 65.3 %; Nucleated Red Blood Cells % 0 %; Platelet Count 161 10^3/cmm (130-400); Red Cell Distribution Width 12.7 % (12.1-15.1); White Blood Count 4.3 10^3/uL (4.0-10.0)
[2020-04-01 16:35] LABS: Alanine Aminotransferase 16 U/L (0-41); Alkaline Phosphatase 74 IU/L (40-130); Anion Gap 13.4 (5-19); Aspartate Amino Transferase 13 U/L (0-40); Blood Urea Nitrogen 22 mg/dL (8-23); Calcium 9.8 mg/dL (8.5-10.5); Carbon Dioxide 23 mmol/L (22-29); Chloride 109 mmol/L (98-107); Globulin 2.5 g/dL (1.3-4.6); Glucose 100 mg/dL (65-115); Osmolality Calculated 295 mOsm/kg (285-295); Potassium 4.4 mmol/L (3.5-5.1); Sodium 141 mmol/L (136-145); Total Bilirubin 0.6 mg/dL (0.15-1.2); Total Protein 6.5 g/dL (6.6-8.7)
[2020-04-01 17:10] LABS: Calcium 10.1 mg/dL (8.5-10.5); Parathyroid Hormone 106.1 pg/mL (15-65)
== END 2020-04-01 15:18 | disposition home or self-care (01) ==
PROVIDERS: PCP Internal Medicine; Visit Provider Internal Medicine
DX: I10 Essential (primary) hypertension (principal)
CPT/HCPCS: 80053; 82310; 82330; 83970; 85025

== ENCOUNTER 2020-04-04 06:30 | Day surgery (SDC) | payer MEDICARE, MEDICAID, SELFPAY ==
[2020-04-03 13:28] VITALS: BMI 31.0
[2020-04-04] VITALS (8 sets, daily range): BP systolic 131–173; BP diastolic 71–95; PULSE 49–60; RESP 12–23; TEMP 36.1–36.6; O2SAT 91–98
--- NOTE | 2020-04-04 06:53 | W.PM.OPSUD ---
Surgery/Procedure H&P Update DATE OF PROCEDURE: April 04, 2020 DATE H&P PERFORMED: 03/15/19 PREOP DIAGNOSIS: Rotator cuff tear right shoulder PLANNED PROCEDURE: Operation Date: 04/04/20 08:00 Proposed Procedures p Shoulder Arthroscopy with subacromial decompression [id number] M75.101(Right) - Sean Wolfe MD s Rotator Cuff Repair(Right) - Sean Wolfe MD
[2020-04-04] MEDS: acetaminophen 500 mg Tablet 1000 MG PO (07:20)
[2020-04-04] MEDS: sodium chloride 0.9% 1,000 ML 30 ML IV (07:20)
[2020-04-04] MEDS: midazolam 1 mg/mL INJ 2 mL 2 MG IVP (07:22)
--- NOTE | 2020-04-04 07:31 | ANES.PROC ---
Anesthesia Procedures Procedure/Date: 04/04/20 Nerve Block ^: Nerve Block 1: Main Anesthesia: general anesthesia Time Out Performed: Yes Consent: requested by attending/covering physician, from patient and patient agrees to proceed Nerve block location: interscalene (R) Anesthesia monitors applied: pulse oximetry, EKG, BP cuff and oxygen Nerve block position: semi sitting Anesthetic Used: ropivicaine 0.5% (20 ml) and with decadron (4 mg) Amount of anesthesia used (mL): 20 Ultrasound used to: recognize landmarks, visualize and ID brachial plexus and visualize and ID interscalene groove Nerve Stimulator Used?: No Interscalene/Femoral BLK: 2 stimuplex 22 g needle used for position and inplane approach, visualize local anesthetic spread and no vascular puncture identified Injection: neg aspiration of heme Patient Tolerated Procedure: well and no complications Complications: none
--- NOTE | 2020-04-04 08:04 | P.ANESUD_ITS ---
Pre-Anesthetic Update Pre-Anesthetic Assessment: Date of Surgery/Procedure: 04/04/20 Preop Shantell gnosis: Rotator cuff tear right shoulder Proposed Procedure: Operation Date: 04/04/20 08:00 Proposed Procedures p Shoulder Arthroscopy with subacromial decompression [id number] M75.101(Right) - Sean Wolfe MD s Rotator Cuff Repair(Right) - eSan Wolfe MD Any changes to Pre-Anesthetic Assessment?: No Last Intake: Intake Last Liquid Date 04/03/20 Last Liquid Time 22:00 Last Solid Date 04/03/20 Last Solid Time 22:00 Vitals: Temperature 97.1 F L 04/04/20 06:53 Temperature Source Temporal Artery S can 04/04/20 06:53 Pulse Rate 55 L 04/04/20 06:53 Respiratory Rate 18 04/04/20 06:53 Blood Pressure 173/89 04/04/20 06:53 Blood Pressure Charu n 117 04/04/20 06:53 Pulse Oximetry 98 04/04/20 06:53 Oxygen Delivery Me thod 04/04/20 06:53 Exam: Pre-Anes Outpt Exam: alert, oriented x 3, clear to auscultation bilaterally and regular rate & rhythm Cardiac Studies: No Data to Display
--- NOTE | 2020-04-04 10:06 | PM.OP ---
Operative Report Date of procedure: April 04, 2020 Pre-op Diagnosis: Rotator cuff tear right shoulder Post-op diagnosis: same Post-op Diagnosis: Right shoulder impingement, degenerative tearing right shoulder labrum, partial tear right biceps tendon Post-op Findings: The patient had a full-thickness tear of the rotator cuff approximately 2 cm from anterior to posterior involving the supraspinatus tendon with approximately a centimeter and a half with tendinous retraction. The bone quality were excellent. He had partial tearing of his biceps tendon involving approximately 50% of the tendon. No significant chondromalacia was noted. Degenerative tearing was noted circumferentially about the labrum mainly the anterior superior labrum and posterior and inferior labrum Procedure Done: Arthroscopic repair right rotator cuff, limited debridement including biceps tenotomy, labral debridement, subacromial bursectomy, and subacromial decompression Implants: Daugherty and Nephew Helicoil 4.5 mm anchors x2, Daugherty and Nephew Helicoil knotless anchors x2 Pathology: none sent Anesthesia: General Estimated blood loss (mL): 20 Complications: None Findings: See postop finding Condition: stable Disposition: PACU Procedure: The patient was taken to the operating room after he was given an interscalene block. He was given 2 g of Ancef. He was positioned in the lateral position with his right arm in 10 and later 15 pounds of traction. A posterior portal was made 2 cm inferior and medial to the posterior corded acromion. A scope cannula and trocar were driven into the glenohumeral joint. The diagnostic portion of the glenohumeral arthroscopy was performed. Initial attention was paid to the partial tear of the biceps. Biceps tenotomy was chosen as the patient was older and demands were lower. Utilizing the Daugherty and Nephew Werewolf probe the biceps was released from its insertion on the superior labrum. Degenerative changes were seen about the anterior superior labrum which were debrided back with the Daugherty and Nephew Werewolf probe. Final lateral distraction was applied across the joint allowing access to the inferior and posterior labrum and this was debrided back to a stable rim with an incisor shaver and werewolf probe. No appreciable chondromalacia was identified. The scope was then directed to the subacromial space. An anterior and lateral subacromial portal fashion. A incisor shaver and Daugherty and Nephew Werewolf probe were used to remove abundant bursal tissue and outlined the leading edge of the acromion. Through the lateral portal a 5.5 mm acromionizer was introduced and approximately 5 mm of anterior and inferior acromion removed decompression was accomplished as far medial as the acromioclavicular joint removing any spurs that would impinge on the rotator cuff repair. Attention was then focused on the rotator cuff. The footprint was debrided with a incisor shaver to a vascular bone. Through a lateral stab wound a Daugherty and Nephew Helicoil 4.5 mm anchor with 1 ultra tape was placed. A Daugherty and NephVisualmarks FirstPass suture passer was used to shuttle 1 limb of tape through the posterior rotator cuff approximately 8 mm from the edge and the second free tape approximately 5 mm anterior to that. A second anterior helical anchor was placed and 2 sutures passed in identical fashion. The sutures from each anchor were secured with a sliding Penaloza knot in alternating half hitches bringing the medial cuff to the medial anchor. Next one suture from each anchor was dragged through the lateral portal. A helical knotless anchor was then placed posterior laterally and the sutures secured through that anchor. This was repeated with the anterior lateral knotless anchor in identical fashion creating a double row repair with excellent coverage over the tendon. Portals were closed with 3-0 Prolene. Sterile dressings were applied. The patient was placed in the sling, extubated, and taken to recovery room in stable condition.
--- NOTE | 2020-04-04 10:22 | SUR.PHASEI ---
1015 PT AWAKES TO VOICE WARM BLANKETS X 4 TO PT, PT ORAL AIRWAY OUT PT HOB AT 30 DEGREES, VSS.RT SHOULDER DRESSING D/I SLING IN PLACE DISTAL HAND FINGERS PINK WARM WITH CAP REFILL LESS THAN 3 SECONDS.
--- NOTE | 2020-04-04 14:11 | ANE.PACU2 ---
Inpatient post-anesthesia follow up: Airway intact: Yes Vital signs: Temperature 98 F Pulse Rate 60 Respiratory Rate 16 Blood Pressure 153/76 Pulse Oximetry 94 Oxygen Delivery Me thod Room Air Oxygen Flow Rate 2 Fraction of Inspir ed Oxygen Hydration adequate: Yes Nausea and vomiting: No Pain level: 1 Mental status: Baseline
== END 2020-04-04 11:15 | disposition home or self-care (01) ==
PROVIDERS: PCP Internal Medicine; Visit Provider Orthopaedic Surgery
PROC: (CPT 29805; principal; 2020-04-04 08:00)
PROC: (CPT 29826; 2020-04-04 08:00)
DX: M75.101 Unspecified rotator cuff tear or rupture of right shoulder, not specified as traumatic (principal); M25.811 Other specified joint disorders, right shoulder; S46.211A Strain of muscle, fascia and tendon of other parts of biceps, right arm, initial encounter; X58.XXXA Exposure to other specified factors, initial encounter; I12.9 Hypertensive chronic kidney disease with stage 1 through stage 4 chronic kidney disease, or unspecified chronic kidney disease; N18.30 Chronic kidney disease, stage 3 unspecified; F41.9 Anxiety disorder, unspecified; F32.9 Major depressive disorder, single episode, unspecified
CPT/HCPCS: 29826; 29827; 29828; 12345; 64415; 76942; 96374; C1713; J1100; J2250; J2405; J2704; J2710; J2795; J3010; J3490; J7030

== ENCOUNTER 2020-05-13 10:00 | Outpatient (CLI) | payer MEDICARE, MEDICAID, SELFPAY ==
--- NOTE | 2020-05-13 10:04 | NM_ITS ---
WS: [id number] NUCLEAR MEDICINE PARATHYROID SCINTIGRAPHY INDICATION: Elevated PTH TECHNIQUE: 18.1 mCi technetium 99m sestamibi FINDINGS: Normal homogeneous thyroid uptake on the initial imaging. No significant photopenic defects . Normal thyroid washout on the delayed imaging. No evidence of abnormal sestamibi retention to genny owusu parathyroid adenoma. NM/NM parathyroid 20055 IMPRESSION: No evidence of parathyroid adenoma
== END 2020-05-13 10:01 | disposition home or self-care (01) ==
LOC: NM 10:00
PROVIDERS: PCP Internal Medicine; Visit Provider Internal Medicine
DX: E21.3 Hyperparathyroidism, unspecified (principal)
CPT/HCPCS: 78070; A9500

== ENCOUNTER 2020-07-01 09:39 | Outpatient (CLI) | payer MEDICARE, MEDICAID, SELFPAY ==
[2020-07-01 10:25] LABS: Basophils % 0.4 %; Eosinophils # 0.1 10^3/uL (0.0-0.8); Eosinophils % 2.2 %; Hematocrit 45.2 % (42.0-52.0); Hemoglobin 14.4 g/dL (11.7-16.6); Lymphocytes # 1.2 10^3/uL (0.8-4.8); Lymphocytes % 27.1 %; Mean Corpuscular HGB Conc 31.9 g/dL (30.0-36.0); Mean Corpuscular Volume 97.2 fL (80-94); Mean Platelet Volume 8.7 fL (7.4-10.4); Monocytes # 0.5 10^3/uL (0.2-0.9); Neutrophils # 2.71 10^3/uL (1.8-7.7); Neutrophils % 60.1 %; Nucleated Red Blood Cells % 0 %; Platelet Count 146 10^3/cmm (130-400); Red Blood Count 4.65 10^6/uL (4.1-5.3); Red Cell Distribution Width 13.6 % (12.1-15.1); White Blood Count 4.5 10^3/uL (4.0-10.0)
[2020-07-01 10:51] LABS: Alanine Aminotransferase 23 U/L (0-41); Albumin Level 4.1 g/dL (3.5-5.2); Alkaline Phosphatase 102 IU/L (40-130); Aspartate Amino Transferase 22 U/L (0-40); Blood Urea Nitrogen 23 mg/dL (8-23); Calcium 9.1 mg/dL (8.5-10.5); Carbon Dioxide 23 mmol/L (22-29); Chloride 109 mmol/L (98-107); Chol HDL Ratio 4.13 mg/dL (1.0-5.00); Cholesterol 157 mg/dL (0-200); Globulin 2.6 g/dL (1.3-4.6); Glucose 107 mg/dL (65-115); HDL Cholesterol 38 mg/dL (60-100); LDL Cholesterol Calculated 98 mg/dL (50-129); LDL HDL Ratio 2.58 RATIO (0.00-3.22); Osmolality Calculated 298 mOsm/kg (285-295); Sodium 142 mmol/L (136-145); Total Bilirubin 0.5 mg/dL (0.15-1.2); Total Protein 6.7 g/dL (6.6-8.7); Triglycerides 106 mg/dL (0-150)
[2020-07-01 11:09] LABS: Parathyroid Hormone 89.6 pg/mL (15-65)
== END 2020-07-01 09:40 | disposition home or self-care (01) ==
PROVIDERS: PCP Internal Medicine; Visit Provider Internal Medicine
DX: I10 Essential (primary) hypertension (principal); E21.3 Hyperparathyroidism, unspecified
CPT/HCPCS: 36415; 80053; 80061; 82310; 83970; 85025

== ENCOUNTER 2020-08-28 10:35 | Outpatient (RCR) | payer MEDICARE, MEDICAID, SELFPAY | END 2020-08-28 23:59 | disposition home or self-care (01) | LOC: SPT 10:35 | PROVIDERS: PCP Internal Medicine; Referring Provider Orthopaedic Surgery; Visit Provider Orthopaedic Surgery | DX: Z47.89 Encounter for other orthopedic aftercare (principal) | CPT/HCPCS: 97110; 97162 ==

== ENCOUNTER 2020-08-29 06:00 | Outpatient (RCR) | payer MEDICARE, MEDICAID, SELFPAY | END 2020-09-28 23:59 | disposition home or self-care (01) | LOC: SPT 06:00 | PROVIDERS: PCP Internal Medicine; Referring Provider Orthopaedic Surgery; Visit Provider Orthopaedic Surgery | DX: Z47.89 Encounter for other orthopedic aftercare (principal) | CPT/HCPCS: 97110 ==

== ENCOUNTER 2020-09-17 12:11 | Outpatient (CLI) | payer MEDICARE, MEDICAID, SELFPAY ==
--- NOTE | 2020-09-17 12:30 | XR_ITS ---
WS: [id number] PA inspiration and expiration chest, 09/18/2020 Clinical Data: CARCINOMA OF PENIS Comparison: Portable chest, 12/13/2019. Findings: No nodules, masses or effusions are seen. The heart is normal. The pulmonary vascularity is not incre ased. There is no air trapping on expiration. The aortic arch is minimally tortuous. XR/XR chest 2V insp/exp [id number] Impression: Atherosclerosis.
[2020-09-17 12:47] LABS: Basophils % 0.5 %; Eosinophils # 0.1 10^3/uL (0.0-0.8); Eosinophils % 2.5 %; Hematocrit 41.7 % (42.0-52.0); Hemoglobin 13.1 g/dL (11.7-16.6); Lymphocytes # 1.2 10^3/uL (0.8-4.8); Lymphocytes % 30.3 %; Mean Corpuscular HGB Conc 31.4 g/dL (30.0-36.0); Mean Corpuscular Hemoglobin 31.1 pg (28.0-34.0); Monocytes # 0.3 10^3/uL (0.2-0.9); Monocytes % 8.2 %; Neutrophils # 2.35 10^3/uL (1.8-7.7); Neutrophils % 58.3 %; Nucleated Red Blood Cells % 0 %; Platelet Count 159 10^3/cmm (130-400); Red Blood Count 4.21 10^6/uL (4.1-5.3)
[2020-09-17 13:05] LABS: Alanine Aminotransferase 12 U/L (0-41); Albumin Level 4.1 g/dL (3.5-5.2); Alkaline Phosphatase 89 IU/L (40-130); Aspartate Amino Transferase 17 U/L (0-40); Blood Urea Nitrogen 30 mg/dL (8-23); Calcium 9.6 mg/dL (8.5-10.5); Carbon Dioxide 23 mmol/L (22-29); Chloride 106 mmol/L (98-107); Globulin 2.4 g/dL (1.3-4.6); Glucose 132 mg/dL (65-115); Osmolality Calculated 292 mOsm/kg (285-295); Sodium 137 mmol/L (136-145); Total Bilirubin 0.4 mg/dL (0.15-1.2); Total Protein 6.5 g/dL (6.6-8.7)
== END 2020-09-17 12:12 | disposition home or self-care (01) ==
LOC: RAD 12:20
PROVIDERS: PCP Internal Medicine; Visit Provider Urology
DX: C60.9 Malignant neoplasm of penis, unspecified (principal)
CPT/HCPCS: 71046; 80053; 85025

== ENCOUNTER 2020-09-29 06:00 | Outpatient (RCR) | payer MEDICARE, MEDICAID, SELFPAY | END 2020-10-29 23:59 | disposition home or self-care (01) | LOC: SPT 06:00 | PROVIDERS: PCP Internal Medicine; Referring Provider Orthopaedic Surgery; Visit Provider Orthopaedic Surgery | DX: Z47.89 Encounter for other orthopedic aftercare (principal) | CPT/HCPCS: 97110 ==

== ENCOUNTER 2020-10-04 10:33 | Observation (INO) | payer MEDICARE, MEDICAID, SELFPAY ==
[2020-10-04] VITALS (13 sets, daily range): BP systolic 106–141; BP diastolic 52–75; PULSE 42–100; RESP 16–28; TEMP 37.1–37.2; O2SAT 91–96; BMI 31.0
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
--- NOTE | 2020-10-04 11:38 | ECG_ITS ---
[facility] ED Test Date: 2020-10-04 Pat Name: Mike Silva Department: Room: Gender: Male Manager School: : 1945 Requested By: Reilly Mckinley Order Number: [id number] Still MD: Carolyn Joe M.D. Measurements Intervals [place] Rate: 51 P: 8 DC: 160 QRS: -11 QRSD: 89 T: 16 QT: 414 QTc: 383 Interpretive Statements SINUS BRADYCARDIA WITH OCCASIONAL SUPRAVENTRICULAR PREMATURE COMPLEXES MODERATE VOLTAGE CRITERIA FOR LVH, CONSIDER NORMAL VARIANT [MEETS CRITERIA IN ONE OF: R(aVL), S(V1), R(V5), R(V5/V6)+S(V1)] Compared to ECG 12/13/2019 02:52:26 Sinus rhythm no longer present Sinus arrhythmia no longer present Electronically Signed On 10-04-2020 16:33:16 CDT by Carolyn Joe M.D. [email or web address]/[id number] f
--- NOTE | 2020-10-04 11:38 | XR_ITS ---
WS: [id number] PORTABLE CHEST HISTORY: Shortness of breath, cough COMPARISON: 09/17/2020 Lungs are clear and well expanded. No pleural effusion or pneumothorax. Cardiac size: Normal. Mediastinum/Aorta: Normal mediastinum. No osseous abnormality seen. XR/XR chest 1V portable [id number] IMPRESSION: Unremarkable portable chest.
[2020-10-04 12:52] LABS: Basophils % 0.5 %; Eosinophils # 0.1 10^3/uL (0.0-0.8); Eosinophils % 1.6 %; Hematocrit 40.5 % (42.0-52.0); Hemoglobin 12.7 g/dL (11.7-16.6); Lymphocytes # 0.6 10^3/uL (0.8-4.8); Lymphocytes % 17.4 %; Mean Corpuscular HGB Conc 31.4 g/dL (30.0-36.0); Mean Corpuscular Hemoglobin 31.3 pg (28.0-34.0); Mean Corpuscular Volume 99.8 fL (80-94); Mean Platelet Volume 8.9 fL (7.4-10.4); Monocytes # 0.4 10^3/uL (0.2-0.9); Monocytes % 11.1 %; Neutrophils # 2.54 10^3/uL (1.8-7.7); Neutrophils % 69.1 %; Nucleated Red Blood Cells % 0 %; Platelet Count 116 10^3/cmm (130-400); Red Blood Count 4.06 10^6/uL (4.1-5.3); Red Cell Distribution Width 14.3 % (12.1-15.1); White Blood Count 3.7 10^3/uL (4.0-10.0)
[2020-10-04] MEDS: acetaminophen 500 mg Tablet 1000 MG PO (13:43)
[2020-10-04 14:08] LABS: Troponin T (5th) Once 16 ng/L (0-15)
[2020-10-04 14:10] LABS: Blood Urea Nitrogen 17 mg/dL (8-23); Calcium 8.9 mg/dL (8.5-10.5); Carbon Dioxide 23 mmol/L (22-29); Chloride 105 mmol/L (98-107); Creatinine Clr Calc Pharmacy 58.7137; Glucose 77 mg/dL (65-115); Osmolality Calculated 284 mOsm/kg (285-295); Sodium 137 mmol/L (136-145)
[2020-10-04 14:17] LABS: Procalcitonin 0.09 ng/mL (0-0.5)
--- NOTE | 2020-10-04 14:24 | ECG_ITS ---
[facility] ED Test Date: 2020-10-04 Pat Name: Mike Silva Department: Room: Gender: Male National Sales: : 1945 Requested By: Reilly Mckinley Order Number: [id number] Cheko MD: Carolyn Joe M.D. Measurements Intervals [place] Rate: 49 P: 17 MI: 157 QRS: -2 QRSD: 85 T: 24 QT: 424 QTc: 385 Interpretive Statements SINUS BRADYCARDIA WITH OCCASIONAL SUPRAVENTRICULAR PREMATURE COMPLEXES Compared to ECG 10/04/2020 12:09:44 No significant changes Electronically Signed On 10-04-2020 16:32:04 CDT by Carolyn Joe M.D. [id number]
[2020-10-04] MEDS: aspirin 81 mg Chew Tablet 324 MG PO (14:29)
[2020-10-04 15:10] LABS: Glucose Urine UA Norm (Normal); Ketones Urine Negative (Negative); Protein Urine 1+ (Negative); Urine Color Straw (Yellow); pH Urine 5 (5-7)
[2020-10-04 15:11] LABS: Bilirubin Urine Neg (Negative); Blood Urine 2+ (Negative); Leukocyte Esterase Urine 2+ (Negative); Nitrate Urine Negative (Negative); RBC Urine 0-4 /hpf (0-2); Urobilinogen Urine Norm (Negative); WBC Urine 40-55 /hpf (0-5)
[2020-10-04 15:12] LABS: Bacteria Urine 1+ /hpf; Hyaline Casts Urine 0-4 /lpf; Mucus Urine 1+ /hpf
[2020-10-04 15:13] LABS: Add Urine Culture? Yes; Oval Fat Bodies Urine 0-2 /hpf
[2020-10-04 15:36] LABS: Troponin(5th) Baseline 15 ng/L (0-15)
[2020-10-04 18:00] LABS: Troponin 5 2HR 14.28 ng/L (0-15)
[2020-10-04 18:19] LABS: Troponin 5 2HR Delta -0.72 ABS# (0-10)
[2020-10-04] MEDS: midazolam 1 mg/mL INJ 2 mL 5 MG IVP (20:59)
[2020-10-04] MEDS: midazolam 1 mg/mL INJ 2 mL 5 MG XX (21:00)
[2020-10-04] MEDS: cefTRIAXone 1,000 MG in lidocaine 1% 2.1 ML 2.1 MG IM (21:23)
--- NOTE | 2020-10-04 23:55 | PM.HP ---
Providers/Chief Complaint Admitting Physician: Abida Geronimo Primary Care Provider: Mee Nataraajn MD Chief Complaint: CHILLING THEN BURNING UP, COUGHING THEN SPIT UP History of Present Illness 75-year-old male with past medical history significant for hypertension, gastroesophageal reflux disease, generalized anxiety disorder, chronic stage 3 kidney disease, penile cancer and urethral strictures requiring intermittent self catheterizations leading to recurrent UTIs who is presenting to hospital with dysuria. Patient stated that he has not been routinely catheterizing at home as instructed. Stated this always leads to subjective fever, and chills.Laboratory workup arrival showed a WBC of 3.7, hemoglobin of 12.7, hematocrit 40.5 and a platelet count of 116. Sodium 137, potassium 4.0, chloride 105, bicarb 23, BUN 17 and creatinine 1.2. Troponin T Watkins was negative. Urinalysis showed 2+ leukocyte esterase, 40 to 55 abcs and 1+ bacteria. In emergency room patient was given Rocephin 2g IV x1. Patient apparently had expressed some threatening statements, Due to this psychiatry was consulted and patient was placed on a 96 hour hold. At the time of my evaluation patient was alert awake and oriented and did not express any suicidal or homicidal ideations. Review of Systems General: Reports: 10 or more systems reviewed and unremarkable except in HPI and below Medications/Allergies Home Medications Medication Instructions Recorded Confirmed Last Taken Type hydrocodone 7.5 mg-acetaminophen 1 tab PO BID PRN 03/13/19 10/04/20 10/04/20 History 325 mg tablet apixaban 5 mg tablet 5 mg PO BID tab 03/20/19 10/04/20 10/04/20 History mirtazapine 15 mg tablet 15 mg PO DAILY 03/20/19 10/04/20 10/04/20 History paroxetine HCl 20 mg PO DAILY 03/21/19 10/04/20 10/04/20 History metoprolol tartrate 25 mg tablet 25 mg PO BID tab 04/06/19 10/04/20 10/04/20 History cetirizine 10 mg tablet 10 mg PO DAILY PRN 09/18/19 10/04/20 10/04/20 History ascorbic acid (vitamin C) 1,000 mg 1 gm PO BID tab 09/19/19 10/04/20 10/04/20 History tablet lisinopril 10 mg PO DAILY 10/17/19 10/04/20 10/04/20 History alprazolam 1 mg tablet 1 mg PO BID PRN #60 tab 05/20/20 10/04/20 10/03/20 Rx methenamine hippurate 1 gram tablet 1 g PO BID #60 tab 08/08/20 10/04/20 10/04/20 Rx amlodipine 5 mg PO DAILY 10/04/20 10/04/20 10/04/20 History omeprazole 20 mg PO DAILY 10/04/20 10/04/20 10/04/20 History Allergies Allergy/AdvReac Type Severity Reaction Status Date / Time Penicillins Allergy Intermediate rash Verified 10/04/20 11:21 sulfamethoxazole Allergy Hallucianti Verified 10/04/20 11:21 [From Bactrim] ons trimethoprim [From Bactrim] Allergy Hallucianti Verified 10/04/20 11:21 ons PFSH Acute PFSH: Medical History (Updated 10/05/20 @ 04:57 by Abida Geronimo MD) Bloody stool Change in bowel habit Chronic kidney disease, stage III (moderate) Depression GENESIS (generalized anxiety disorder) GERD (gastroesophageal reflux disease) Hypertension Melena Recurrent UTI Squamous cell carcinoma of penis Urethral stricture Surgical History History of knee surgery History of laparoscopic cholecystectomy Family History Denies family history of Anesthesia complication Bleeding disorder Social History Smoking and tobacco status: never smoked Second hand smoke exposure: No Alcohol intake: current Alcohol intake frequency: holidays/special occasions only Alcohol type: beer Desire information about alcohol rehabilitation?: No Adopted: No Caregiver/support person: Yes Lives independently: Yes Household members: significant other Housing: House Marital status: / Highest education level completed: High School Graduate service: No Current occupational status: retired Current occupational exposures/hazards: No Pets and animals: No History of recent travel: No Sexually active: No Current gender identity: Male Tri/Uatsdin: [place] Special tri needs: No Agree to transfusion: No Financial difficulty paying for basics: Decline to Answer Vitals/I&O/Wt Last Vital Signs Temp 98.8 F 10/04/20 16:00 Pulse 70 10/05/20 02:17 Resp 16 10/05/20 02:17 BP 141/83 10/05/20 02:17 Pulse Ox 95 10/05/20 02:17 Weight last 48 hrs Weight 95.254 kg Physical Exam Narrative: EXAM NARRATIVE: General : alert, awake oriented x 3 HEENT : Grossly unremarable CVS; RRR Chest : Non-labored respiration Abd Soft, nT Ext : no edema Data : 10/04/20 12:30 10/04/20 13:32 A&P Assessment and plan (1) UTI (urinary tract infection): Continue rocephin 2g IV q24hr Follow up on blood culture x 2 Follow up on urine culture Tylenol prn for fever Bladder scan q6hr - self cath > 200 . refused macias Can transition to oral ciprofloxacin Status: Acute (2) Threatening behavior: 96 hr hold Psych consulted Patient is medically cleared for inpatient psych. Status: Acute Attestations Medical Necessity Statement*: Anticipate over 2 midnights stay in hospital for evaluation and treatment. Patient is a 96 hour hold Time Spent in Patient Care: Greater than 35 minutes Coding Level of Care Code Acute Training And Development Professional for [facility] Fwd Diagnoses UTI (urinary tract infection) N39.0 Threatening behavior R46.89
--- NOTE | 2020-10-04 23:58 | PC.NURSE ---
2044 patient wanting to leave, patient made suicidal thoughts to a nurse earlier in the day and Dr. Mckinley was advised. Patient was advised he was not allowed to leave and patient became angry and attempted to punch TIGRE Dodd. Patient was then manually restrained by Avila Dodd, and a electroplating laborer. Dr. Mckinley spoke with patient and ordered medications
[2020-10-05] VITALS (8 sets, daily range): BP systolic 118–175; BP diastolic 73–100; PULSE 55–90; RESP 16–20; TEMP 36.8; O2SAT 93–98; BMI 31.0
--- NOTE | 2020-10-05 00:10 | PC.NURSE ---
I assumed care of this patient at 10/05/20 0005
[2020-10-05] MEDS: ibuprofen 600 mg Tablet PO (01:04)
[2020-10-05] MEDS: haloperidol inj 5 mg/mL INJ 1 mL (01:53)
--- NOTE | 2020-10-05 02:10 | PC.NURSE ---
patient calm and cooperative and pleasant at this time. patient requesting self catheter supplies. Patient given supplies and advised if he needed any help staff would assist.
[2020-10-05] MEDS: cefTRIAXone 2,000 MG in sodium chloride 0.9% (plus) 100 ML 100 MG IV (05:29)
[2020-10-05] MEDS: sodium chloride 0.9% 1,000 ML 75 ML IV (05:29)
[2020-10-05] MEDS: famotidine 20 mg Tablet PO ×2 (09:07→20:44)
--- NOTE | 2020-10-05 12:59 | PM.PN ---
Subjective Subjective: Interval history: This morning patient was seen, is alert oriented x3, answers all questions appropriately, no fevers overnight, no flank pain, he tells me that he gets urinary tract infection, when he forgets to self cath himself, he denies any suicidal ideation, denies any homicidal ideation, denies seeing or hearing things that are not there, denies feeling down depressed or sad, he tells me that when he was in the emergency room with his brother, he there was a long wait line, any gesture to his brother that it is going to take him so long to be seen, they might as well just in their lives here, and he was only jokingly saying this, but it was taken seriously, denies any previous suicidal attempts Vitals/I&O/Wt Last Vital Signs Temp 98.8 F 10/04/20 16:00 Pulse 55 L 10/05/20 05:42 Resp 20 H 10/05/20 05:42 BP 148/73 10/05/20 05:42 Pulse Ox 94 10/05/20 05:42 10/04/20 10/05/20 10/05/20 22:59 06:59 14:59 Intake Total 100 / 100 Balance 100 / 100 Weight last 48 hrs Weight 95.254 kg Physical Exam Const: COMMON NORMALS: no acute distress and patient oriented x3 Resp: COMMON NORMALS: normal respiratory effort, No retractions, No use of accessory muscles and clear to auscultation bilaterally AUSCULTATION: clear to auscultation bilaterally Cardio: COMMON NORMALS: regular rate, regular rhythm, S1 normal heart sound present and S2 normal heart sound present RATE: regular rate RHYTHM: regular rhythm HEART SOUNDS: S1 normal heart sound present and S2 normal heart sound present GI: COMMON NORMALS: Normal to inspection, nondistended, normoactive bowel sounds present, Soft to palpation and non-tender PALPATION: Yes Soft to palpation Extremity: COMMON NORMALS: no pedal edema Neuro: COMMON NORMALS: patient oriented x3 Psych: COMMON NORMALS: mental status grossly normal Data : 10/04/20 12:30 10/04/20 13:32 Micro: Microbiology 10/05/20 12:02 Blood Culture - Preliminary Blood SPECIMEN COLLECTED 10/05/20 12:12 Blood Culture - Preliminary Blood SPECIMEN COLLECTED A&P Assessment and plan (1) UTI (urinary tract infection): Continue rocephin 2g IV q24hr Follow up on blood culture x 2 Follow up on urine culture Tylenol prn for fever Bladder scan q6hr - self cath > 200 . refused macias Can transition to oral ciprofloxacin on discharge Full code Lovenox for DVT prophylaxis Status: Acute (2) Threatening behavior: 96 hr hold Psych consulted Patient is medically cleared for inpatient psych if required. Status: Acute Attestations Medical Necessity Statement*: Current hospitalization for UTI, 96-hour hold, threatening behavior, awaiting psychiatric evaluation Coding Level of Care Code Acute Treating Machine Operator for [facility] Diagnoses UTI (urinary tract infection) N39.0 Threatening behavior R46.89
[2020-10-05] MEDS: acetaminophen 325 mg Tablet 650 MG PO (13:26)
[2020-10-05] MEDS: enoxaparin 40 mg/0.4 mL Syringe SUBCUT (13:32)
--- NOTE | 2020-10-05 14:04 | PC.NURSE ---
attempted to call report x 1
[2020-10-05 16:56] LABS: Quest SARS-CoV-2 RNA DETECTED (NOT DETECTED)
--- NOTE | 2020-10-05 18:30 | P.CONIM_ITS ---
Providers/Reason for Consult Consulting Physican/Specialty*: Morales Santana MD, psychiatry Reason for Consult*: Combativeness and threats Requesting Physcian: Elvis Becker MD Attending Physician: Elias Ramos MD Primary Care Provider: Mee Natarajan MD Psych Consult HPI History of Present Illness Mike Silva is a 75 year old male with a history of depression, CKD, and squamous cell carcinoma of the penis with recurrent UTIs, who presented to the ED on 10/04/2020 with complaints of generalized malaise and shortness of breath. When he was informed that he would need to stay in the hospital and receive IV antibiotics, he was reported to become combative, attempting to punch the nurses, and threatening to go home and get his gun, come back, and kill them. After that, he was given a total of 10 mg of Versed and 5 mg of Haldol, and placed on a 96-hour hold. Dr. Mckinley saw the patient on 10/04/2020 and his report states: Mr. 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 Symptom onset was gradual a few days ago. The first noticed was subjective chills and fevers though he did not measure his temperature at home. He endorses associated cough which is nonproductive and shortness of breath. He has had similar episodes in the past without clear explanation. Overall the course of symptoms has been worsening. The intensity bad last night and was moderate to severe. There are no other specific exacerbating relieving factors. He reports compliance with his apixaban and has not missed any doses. He is vaccinated against Covid but has exposure to people who are not. The note from earlier today from the hospitalist, Dr. Griffin, states: This morning patient was seen, is alert oriented x3, answers all questions appropriately, no fevers overnight, no flank pain, he tells me that he gets urinary tract infection, when he forgets to self cath himself, he denies any suicidal ideation, denies any homicidal ideation, denies seeing or hearing things that are not there, denies feeling down depressed or sad, he tells me that when he was in the emergency room with his brother, he there was a long wait line, any gesture to his brother that it is going to take him so long to be seen, they might as well just in their lives here, and he was only jokingly saying this, but it was taken seriously, denies any previous suicidal attempts. Staff report that the patient was calm, pleasant, and cooperative later last evening, and has been similarly of pleasant disposition all day today. The patient says that they really got me settle down. I have thought about it, and I should not have done what I did. I just get so upset with myself because sometimes I forget to do my catheter for a day, or 2, or 3. I get these UTIs about every 2 months. The patient says that he is in a good mood now, and grateful for the help of the staff in the ED. He notices that people are dying around me, and that the staff are providing care to them. He denies any urges to harm himself, or others. He denies auditory and visual hallucinations. He has no paranoia. He says he is feeling better physically. He has had no side effects from the medication he is taking. The patient denies a significant history of depression. He says he has never been suicidal in the past. He says he was not really feeling like killing himself yesterday. He denies substance abuse. He says he has gotten his Covid vaccine even though others around him are against it. Review of Systems General: Reports: 10 or more systems reviewed and unremarkable except in HPI and below Meds Current Medications: Current Medications Generic Name Dose Route Start Last Admin Trade Name Ramírez PRN Reason Stop Dose Admin Acetaminophen 650 mg 10/05/20 04:51 10/05/20 13:26 Acetaminophen 32 5 Mg Tablet PO 650 mg Q6H PRN Administration Mild/Mod Pain Or Temp >/= 101 Enoxaparin Sodium 40 mg 10/05/20 13:45 10/05/20 13:32 Enoxaparin 40 Mg /0.4 Ml Syringe SUBCUT 40 mg Q24H ILIANA Administration Famotidine 20 mg 10/05/20 09:00 10/05/20 09:07 Famotidine 20 Mg Tablet PO 20 mg BID ILIANA Administration Ceftriaxone Sodium 2,000 mg/ 100 mls @ 100 mls /hr 10/05/20 05:15 10/05/20 09:06 Sodium Chloride IV Infused Q24H ILIANA Infusion PFSH NPU PFSH: Medical History (Updated 10/06/20 @ 09:08 by Morales aSntana MD) Bloody stool Change in bowel habit Chronic kidney disease, stage III (moderate) Depression GENESIS (generalized anxiety disorder) GERD (gastroesophageal reflux disease) Hypertension Melena Recurrent UTI Squamous cell carcinoma of penis Urethral stricture Surgical History History of knee surgery History of laparoscopic cholecystectomy Family History Denies family history of Anesthesia complication Bleeding disorder Social History Smoking and tobacco status: never smoked Second hand smoke exposure: No Alcohol intake: current Alcohol intake frequency: holidays/special occasions only Alcohol type: beer Desire information about alcohol rehabilitation?: No Adopted: No Caregiver/support person: Yes Lives independently: Yes Household members: significant other Housing: House Marital status: / Highest education level completed: High School Graduate service: No Current occupational status: retired Current occupational exposures/hazards: No Pets and animals: No History of recent travel: No Sexually active: No Current gender identity: Male Tri/Islam: Gnosticist Special tri needs: No Agree to transfusion: No Financial difficulty paying for basics: Decline to Answer Mental Status Exam MSE Comments: I met with the patient in his ED room, and he was dressed in hospital scrubs and fairly appropriately groomed. He was calm, cooperative, interactive, and made good eye contact. No psychomotor agitation or retardation. Speech is at a regular rate and rhythm, normal volume, good articulation, not pressured. He was a talkative gentleman. Alert, oriented to person, place, time, situation. Attention and concentration were intact to exam Memory is adequate for the purposes of this interview Mood is depressed and anxious. Affect is pleasant. Thought process is logical and goal-directed. Thought content: Denies auditory and visual hallucinations. No delusions noted. No current or past suicidal ideation, and no homicidal ideation. Insight and judgment appear to be fair and improved over how he was doing yesterday. Vitals/I&O/Wt Last Vital Signs Temp 98.8 F 10/04/20 16:00 Pulse 68 10/05/20 12:00 Resp 18 10/05/20 12:00 BP 175/100 10/05/20 12:00 Pulse Ox 95 10/05/20 12:00 10/05/20 10/05/20 10/05/20 06:59 14:59 22:59 Intake Total 100 / 100 Balance 100 / 100 Weight last 48 hrs Weight 95.254 kg Data NPU Micro: Micro: Microbiology 10/04/20 14:33 Urine Culture - Pr eliminary Urine,Clean Catch 10/05/20 12:02 Blood Culture - Pr eliminary Blood SPECIMEN [facility] 10/05/20 12:12 Blood Culture - Pr eliminary Blood SPECIMEN [facility] Microbiology 10/04/20 14:33 Urine,Clean Catch Urine Culture - Preliminary 10/05/20 12:02 Blood Blood Culture - Preliminary SPECIMEN COLLECTED 10/05/20 12:12 Blood Blood Culture - Preliminary SPECIMEN COLLECTED A&P Assessment and plan (1) Homicidal ideation: Now resolved. Status: Resolved (2) Threatening behavior: Limited to the context of acute UTI with some mental status changes, now resolved. Status: Resolved (3) UTI (urinary tract infection): Status: Acute (4) Chronic kidney disease, stage III (moderate): Status: Chronic (5) Depression: He was sad and upset in the context of having mental status changes from his UTI, and being told he needed to stay in the hospital for IV antibiotics. Now resolved. Status: Resolved Qualifiers: Depression Type: reactive depression Qualified Code(s): F32.9 - Major depressive disorder, single episode, unspecified Additional A&P Information The patient needs no further psychiatric care or follow-up at this time. Please reconsult as needed. Involuntary Hold Information 96 Hour Hold: 96 Hour Hold Start Date: 10/04/20 96 Hour Hold Start Time: 21:10 96 Hour Hold Ending Date: 10/05/20 96 Hour Hold Ending Time: 18:30 Comments: Patient's agitation, combativeness, and threats resolved with Versed, Haldol, and treatment of his UTI. He was therefore released from the 96-hour hold. Attestations NPU Medical Necessity Statement*: The patient is no longer dangerous to self or others, and his mental status changes have completely resolved. Therefore his 96-hour hold has been discontinued. ED providers will attest to medical n ecessity. Coding Level of Care Code Acute Transportation Program Director for [facility] Fwd Diagnoses Homicidal ideation R45.850 Threatening behavior R46.89 UTI (urinary tract infection) N39.0 Chronic kidney disease, stage III (moderate) N18.30 Depression F32.9 Depression Type: reactive depression
[2020-10-06] VITALS: BP 186/80; PULSE 77; RESP 18; TEMP 36.8; O2SAT 96
[2020-10-06 04:00] VITALS: BP 163/83; PULSE 73; RESP 18; TEMP 36.8; O2SAT 96
[2020-10-06 06:00] VITALS: PULSE 82
[2020-10-06 06:11] LABS: Basophils % 0.3 %; Eosinophils % 0.5 %; Hematocrit 40.9 % (42.0-52.0); Hemoglobin 13.3 g/dL (11.7-16.6); Lymphocytes # 0.6 10^3/uL (0.8-4.8); Lymphocytes % 16.2 %; Mean Corpuscular HGB Conc 32.5 g/dL (30.0-36.0); Mean Corpuscular Hemoglobin 30.9 pg (28.0-34.0); Mean Corpuscular Volume 94.9 fL (80-94); Mean Platelet Volume 8.7 fL (7.4-10.4); Monocytes # 0.4 10^3/uL (0.2-0.9); Neutrophils # 2.62 10^3/uL (1.8-7.7); Nucleated Red Blood Cells % 0 %; Platelet Count 121 10^3/cmm (130-400); Red Blood Count 4.31 10^6/uL (4.1-5.3); Red Cell Distribution Width 12.6 % (12.1-15.1); White Blood Count 3.6 10^3/uL (4.0-10.0)
[2020-10-06] MEDS: cefTRIAXone 2,000 MG in sodium chloride 0.9% (plus) 100 ML 100 MG IV (06:18)
[2020-10-06 06:40] LABS: Alanine Aminotransferase 16 U/L (0-41); Albumin Level 3.9 g/dL (3.5-5.2); Alkaline Phosphatase 89 IU/L (40-130); Blood Urea Nitrogen 17 mg/dL (8-23); Calcium 9.5 mg/dL (8.5-10.5); Carbon Dioxide 24 mmol/L (22-29); Chloride 104 mmol/L (98-107); Globulin 2.2 g/dL (1.3-4.6); Glucose 102 mg/dL (65-115); Osmolality Calculated 288 mOsm/kg (285-295); Sodium 138 mmol/L (136-145); Total Bilirubin 0.4 mg/dL (0.15-1.2); Total Protein 6.1 g/dL (6.6-8.7)
[2020-10-06 06:41] LABS: Anion Gap 13.8 (5-19); Aspartate Amino Transferase 30 U/L (0-40); Potassium 3.8 mmol/L (3.5-5.1)
[2020-10-06 06:54] LABS: Procalcitonin 0.12 ng/mL (0-0.5)
[2020-10-06] MEDS: famotidine 20 mg Tablet PO (09:49)
[2020-10-06 09:52] VITALS: PULSE 82
[2020-10-06] MEDS: acetaminophen 325 mg Tablet 650 MG PO (10:06)
--- NOTE | 2020-10-06 11:03 | P.DS_ITS ---
Discharge Providers Date of Admission: 10/05/20 07:39 Date of Discharge: October 06, 2020 Attending Provider at Admission: Abida Geronimo Attending Provider at Discharge: Elias Ramos MD Primary Care Provider: Mee Natarajan MD Diagnoses at Discharge Discharge Diagnosis (1) Homicidal ideation: Status: Resolved (2) Threatening behavior: Status: Resolved (3) UTI (urinary tract infection): Status: Acute (4) Chronic kidney disease, stage III (moderate): Status: Chronic (5) Depression: Status: Resolved Qualifiers: Depression Type: reactive depression Qualified Code(s): F32.9 - Major depressive disorder, single episode, unspecified Reason for Visit Reason for Visit: CHILLING THEN BURNING UP, COUGHING THEN SPIT UP Hospital Course Hospital Course This is a 75-year-old male with a history of urethral stricture who self caths, GERD, depression, who presents to [facility] due to fevers and chills Patient was admitted to [facility] for fevers and chills secondary to UTI, received Rocephin antibiotic therapy, blood cultures so far negative, urine cultures so far unremarkable, he clinically improved, remained afebrile. He was advised to continue to self cath, follow-up with Dr. Encinas, discharged on ciprofloxacin for 3 remaining days. Patient also had concerns for threatening behavior during his hospitalization, denied any suicidal ideation, denied any homicidal ideation, denied feeling down depressed or sad, denies seeing or hearing things that are not there, was seen by psychiatry, was deemed not a threat to himself or others, was discharged home with close follow-up with [facility] as outpatient. Physical Exam Const: COMMON NORMALS: no acute distress and patient oriented x3 Neck/C-Spine: COMMON NORMALS: no JVD Resp: COMMON NORMALS: normal respiratory effort, No retractions, No use of accessory muscles and clear to auscultation bilaterally AUSCULTATION: clear to auscultation bilaterally Cardio: COMMON NORMALS: no JVD, regular rate, regular rhythm, S1 normal heart sound present and S2 normal heart sound present RATE: regular rate RHYTHM: regular rhythm HEART SOUNDS: S1 normal heart sound present and S2 normal heart sound present GI: COMMON NORMALS: Normal to inspection, nondistended, normoactive bowel sounds present and Soft to palpation PALPATION: Yes Soft to palpation Extremity: COMMON NORMALS: no pedal edema Neuro: COMMON NORMALS: patient oriented x3 Psych: COMMON NORMALS: mental status grossly normal Discharge Data Data Completed and Pending: Completed Studies During Hospitalization Category Date Time Status XR chest 1V giorgio ble [id number] Stat Exams 10/04/20 11:38 Completed Pending at discharge Category Date Time Status Blood Culture Sta t Lab 10/05/20 12:02 Results Labs from last 24 hours 10/06/20 10/06/20 10/06/20 05:53 05:53 05:53 WBC 3.6 L RBC 4.31 Hgb 13.3 Hct 40.9 L MCV 94.9 H MCH 30.9 MCHC 32.5 RDW 12.6 Plt Count 121 L MPV 8.7 Neut % (Auto) 72.0 Lymph % (Auto) 16.2 [place] % (Auto) 11.0 Eos % (Auto) 0.5 Baso % (Auto) 0.3 Neut # (Auto) 2.62 Lymph # (Auto) 0.6 L [place] # (Auto) 0.4 Eos # (Auto) 0.0 Baso # (Auto) 0.0 Nucleated RBC % (a uto) 0 Nucleated RBCs # 0.0 Sodium 138 Potassium 3.8 Chloride 104 Carbon Dioxide 24 Anion Gap 13.8 BUN 17 Creatinine 1.1 GFR Calculation Not Reportable Glucose 102 Calculated Osmolal ity 288 Calcium 9.5 Total Bilirubin 0.4 AST 30 ALT 16 Alkaline Phosphata se 89 Total Protein 6.1 L Albumin 3.9 Globulin 2.2 Procalcitonin 0.12 SARS-CoV-2 RNA (RT -PCR) 10/04/20 12:30 WBC RBC Hgb Hct MCV MCH MCHC RDW Plt Count MPV Neut % (Auto) Lymph % (Auto) [place] % (Auto) Eos % (Auto) Baso % (Auto) Neut # (Auto) Lymph # (Auto) [place] # (Auto) Eos # (Auto) Baso # (Auto) Nucleated RBC % (a uto) Nucleated RBCs # Sodium Potassium Chloride Carbon Dioxide Anion Gap BUN Creatinine GFR Calculation Glucose Calculated Osmolal ity Calcium Total Bilirubin AST ALT Alkaline Phosphata se Total Protein Albumin Globulin Procalcitonin SARS-CoV-2 RNA (RT -PCR) Detected A Vitals: Last Vital Signs Temp 98.3 F 10/06/20 04:00 Pulse 82 10/06/20 09:52 Resp 18 10/06/20 04:00 BP 163/83 10/06/20 04:00 Pulse Ox 96 10/06/20 04:00 Discharge Plan Discharge Patient Disposition: Home Condition: Stable Prescriptions: New ciprofloxacin HCl [Cipro] 500 mg tablet 500 mg PO BID 3 Days Qty: 6 RF: 0 Continued mirtazapine 15 mg tablet 15 mg PO DAILY RF: 0 Eliquis 5 mg tablet 5 mg PO BID RF: 0 Hold Instructions: Resume on 03/25/19. metoprolol tartrate 25 mg tablet 25 mg PO BID RF: 0 Xanax 1 mg tablet 1 mg PO BID PRN (Reason: anxiety) Qty: 60 RF: 5 ascorbic acid (vitamin C) 1,000 mg tablet 1 gm PO BID RF: 0 hydrocodone-acetaminophen [Rector] 7.5-325 mg tablet 1 tab PO BID PRN (Reason: Pain) RF: 0 methenamine hippurate 1 gram tablet 1 g PO BID Qty: 60 RF: 12 paroxetine HCl 20 mg tablet 20 mg PO DAILY RF: 0 cetirizine [Zyrtec] 10 mg tablet 10 mg PO DAILY PRN (Reason: allergy symptoms) RF: 0 amlodipine 5 mg tablet 5 mg PO DAILY RF: 0 omeprazole 20 mg capsule,delayed release(DR/EC) 20 mg PO DAILY RF: 0 lisinopril 10 mg tablet 10 mg PO DAILY RF: 0 Discharge Orders: Discharge Order (Routine); Ordered 10/06/20 Ordered By: Elias Ramos Referrals: Mee Natarajan MD [Primary Care Provider] - 1-3 days [facility] [Staff Physician] - 1-3 days Discharge Diet: Cardiac Discharge Activity: Resume usual activity Patient Instructions: Opioid Safety Activity Restrictions/Additional Instructions: -Please continue to self cath -Take antibiotics as prescribed -Follow-up with primary care provider in 1 week -Follow-up with [facility] in 1 to 3 days Discharge Attestations Time Spent in Discharge Care*: less than 30 min Quality Metrics Clinical Quality Measures During this hospital stay, did patient experience: None Coding Level of Care Code Acute [facility] FW DC note Diagnoses Homicidal ideation R45.850 Threatening behavior R46.89 UTI (urinary tract infection) N39.0 Chronic kidney disease, stage III (moderate) N18.30 Depression F32.9 Depression Type: reactive depression
[2020-10-06] MEDS: amlodipine 5 mg Tablet PO (11:22)
[2020-10-06] MEDS: metoprolol tartrate 25 mg Tablet PO (11:22)
[2020-10-06] MEDS: apixaban 5 mg Tablet PO (11:22)
--- NOTE | 2020-10-06 11:33 | PC.NURSE ---
Discharge paperwork given to patient. Patient verbalized understanding. IV removed intact.
[2020-10-06 11:55] VITALS: PULSE 82
--- NOTE | 2020-10-11 08:16 | PC.SOCIAL ---
multiple calls made to patient for follow up call. unable to reach. patient doesn't have voicemail set up.
== END 2020-10-06 11:57 | disposition home or self-care (01) ==
LOC: ER 12:12 → ER IP 10-05 07:40 → MEDSURG 10-05 14:11
PROVIDERS: Admitting Provider Hospitalist; Emergency Provider Emergency Medicine; PCP Internal Medicine; Visit Provider Family Medicine
DX: N39.0 Urinary tract infection, site not specified (principal); R45.850 Homicidal ideations; R46.89 Other symptoms and signs involving appearance and behavior; I12.9 Hypertensive chronic kidney disease with stage 1 through stage 4 chronic kidney disease, or unspecified chronic kidney disease; N18.30 Chronic kidney disease, stage 3 unspecified; F32.9 Major depressive disorder, single episode, unspecified; Z85.89 Personal history of malignant neoplasm of other organs and systems
CPT/HCPCS: 36415; 71045; 80048; 80053; 81001; 84145; 84484; 85025; 87040; 87086; 87635; 93005; 94664; 96365; 96367; 96372; 99285; G0378; J0696; J1630; J1650; J2250; J7030

== ENCOUNTER 2020-11-01 15:44 | Outpatient (CLI) | payer MEDICARE, MEDICAID, SELFPAY ==
--- NOTE | 2020-11-01 15:53 | XR_ITS ---
WS: [id number] ANKLE LEFT TECHNIQUE: 3 views of the left ankle CLINICAL INFORMATION: ANKLE EDEMA, ANKLE PAIN, LEFT COMPARISON: None. FINDINGS: Moderate diffuse soft tissue edema. Narrowing of the ankle mortise with moderate degenerative arthrit is. Chronic appearing well-corticated tiny avulsion at the tip of the lateral malleolus. Plantar calc aneal spurring. XR/XR ankle LT min 3V* [id number] IMPRESSION: 1. Moderate soft tissue edema 2. 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 3. Well-corticated avulsion tip of the lateral malleolus. 4. Plantar calcaneal spurring. 5. No visualized acute fractures.
== END 2020-11-01 15:45 | disposition home or self-care (01) ==
PROVIDERS: PCP Internal Medicine; Visit Provider Nurse Practitioner Family
DX: R60.0 Localized edema (principal); M19.072 Primary osteoarthritis, left ankle and foot; M77.32 Calcaneal spur, left foot
CPT/HCPCS: 73610

== ENCOUNTER 2020-12-06 10:55 | Observation (INO) | payer MEDICARE, MEDICAID, SELFPAY ==
[2020-12-06] VITALS (7 sets, daily range): BP systolic 126–159; BP diastolic 73–83; PULSE 56–73; RESP 16–22; TEMP 35.6–37; O2SAT 94–98; BMI 30.2; BMI 31.5
--- NOTE | 2020-12-06 11:12 | CT_ITS ---
WS: [id number] CT ABDOMEN PELVIS TECHNIQUE: Contrast-enhanced CT of the abdomen and pelvis with coronal and sagittal reformatted image s. CLINICAL INFORMATION: abd distension COMPARISON: 5 15,017 DLP: 1743.[address] scans at [facility] use at least one of these dose optimization techniques: automated e xposure control; mA and/or kV adjustment per patient size (includes targeted exams where dose is matc hed to clinical indication); or iterative reconstruction. FINDINGS: Mild hepatomegaly. Cholecystectomy. Mild intrahepatic biliary duct dilatation likely physiologic post cholecystectomy is unchanged. Mild fatty atrophy of the pancreas. Fluid distended stomach with food p roducts and air-fluid levels. Small esophageal hiatal hernia. Adrenal glands are normal. Bilateral re nal cortical atrophy. No hydronephrosis in either kidney. Small left renal cyst. Right exophytic lowe r pole renal cyst measuring 1.5 cm slightly increased in size compared to 2017. Slight subsegmental a telectasis right lower lobe. Normal sigmoid colon. No evidence of high-grade small or large bowel obstruction. Normal appendix in the right lower quadrant. Normal caliber abdominal aorta. A few incidental reactive inguinal lymph no sheba. Mild prostate enlargement measuring 4.1 cm. Ankylosis lumbar spine L3-L5. Disc osteophyte comple x with severe central canal stenosis and small central protruding osteophyte at L2-3. This is slightl y progressed compared to 2017. Ankylosis L3-L5. CT/CT abdomen pelvis w con* [id number] IMPRESSION: 1. Prior cholecystectomy. Mild hepatomegaly. 2. Small esophageal hiatal hernia with fluid distended stomach with food produ cts and air-fluid levels. 3. No evidence of high-grade small or large bowel obstruction. 4. Bilateral renal cortical atrophy. 5. Normal caliber abdominal aorta. 6. Sigmoid diverticulosis. No evidence of acute diverticulitis. 7. Prostate enlargement with evidence of mild bladder outlet obstruction. Pros malave measures 4.1 CM. Recommend correlation PSA. 8. Moderate to severe central canal stenosis L2-3 with disc osteophyte complex slightly progressed compared to 2017.
--- NOTE | 2020-12-06 11:12 | ECG_ITS ---
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 Measurements Intervals [place] Rate: 54 P: 32 AL: 166 QRS: 0 QRSD: 100 T: 43 QT: 408 QTc: 389 Interpretive Statements SINUS BRADYCARDIA WITH SINUS ARRHYTHMIA POSSIBLE SEPTAL MYOCARDIAL INFARCTION , OF INDETERMINATE AGE [30 ms Q WAVE IN V1/V2] Compared to ECG 10/04/2020 14:57:10 Myocardial infarct finding now present Electronically Signed On 12-06-2020 19:22:21 CDT by Carolyn Joe M.D. [id number] f
--- NOTE | 2020-12-06 11:57 | CT_ITS ---
WS: [id number] CT angio headneck* [id number] REASON FOR EXAM: stroke TECHNIQUE: Coronal and sagittal 2-D and MIP reformations. IV CONTRAST ADMINISTERED: 95 mL of Visipaque TOTAL EXAM DLP: 2277.[address] scans at [facility] use at least one of these dose optimization techniques: automat ed exposure control; mA and/or kV adjustment per patient size (includes targeted exams where dose is matched to clinical indication); or iterative reconstruction. FINDINGS: AORTIC ARCH: The origins of the innominate, left carotid, right carotid, and left subclavian arteries are unremark able. The vertebral artery origins are normal the right vertebral artery is dominant. CERVICAL: Comment carotid arteries in the neck are normal. The origins of the internal carotid arteries are normal. Cervical portions of the vertebral arteries are unremarkable. INTRACRANIAL: The internal carotid arteries, vertebral arteries, and basilar artery through the base of the skull a re unremarkable. The carotid siphons are normal. Carotid terminus bilaterally is normal. The anterior and middle cerebral arterial circulations demonstrate no clot, stenosis, aneurysm, or ar teriovenous malformation. The left vertebral artery essentially terminates in a small branch that joins with a dominant right v ertebral artery to form the basilar artery. It also gives off a large left anterior inferior cerebell ar artery. A right anterior inferior cerebellar artery is not identified originating from the right vertebral ar flor however branches of the right anterior inferior cerebellar artery are identified at the porus ac oustic and ascending along the anterior inferior margin of the right cerebellar hemisphere. Superior cerebellar arteries are patent. Posterior cerebral arteries are patent with no clot, stenosis, aneurysm, or arteriovenous malformatio n. Large posterior communicating artery. Small left posterior communicating artery. CT/CT angio headneck* [id number] IMPRESSION: Normal carotid circulations. Normal right anterior inferior cerebellar artery originating from the right valeriy tebral artery is not identified, however, branches of the more distal right ant erior inferior cerebellar artery are visualized, presumably from aberrant origi n or collaterals. Unlikely this is the result of an acute occlusion, clinical c orrelation to be made.
--- NOTE | 2020-12-06 11:57 | CT_ITS ---
WS: [id number] CT head wo con* [id number] REASON FOR EXAM: stroke IV CONTRAST ADMINISTERED: None TOTAL EXAM DLP: 866.[address] scans at [facility] use at least one of these dose optimization techniques: automat ed exposure control; mA and/or kV adjustment per patient size (includes targeted exams where dose is matched to clinical indication); or iterative reconstruction. FINDINGS: No midline shift or other significant mass effect. No findings of intracranial hemorrhage and no extra-axial fluid collection noted. Acute focal brain parenchymal abnormality identified in the cerebral hemispheres, cerebellar hemisphe res, or brainstem. The examination appears unchanged compared to the previous study of 05/06/2017. CT/CT head wo con* [id number] IMPRESSION: No acute intracranial abnormality.
[2020-12-06 12:28] LABS: Basophils % 0.5 %; Eosinophils # 0.1 10^3/uL (0.0-0.8); Eosinophils % 2.3 %; Hematocrit 39.8 % (42.0-52.0); Hemoglobin 12.5 g/dL (11.7-16.6); Lymphocytes # 1.1 10^3/uL (0.8-4.8); Lymphocytes % 27.2 %; Mean Corpuscular HGB Conc 31.4 g/dL (30.0-36.0); Mean Corpuscular Hemoglobin 30.7 pg (28.0-34.0); Mean Corpuscular Volume 97.8 fl (80-94); Mean Platelet Volume 8.7 fL (7.4-10.4); Monocytes # 0.5 10^3/uL (0.2-0.9); Monocytes % 11.8 %; Neutrophils # 2.25 10^3/uL (1.8-7.7); Neutrophils % 57.9 %; Nucleated Red Blood Cells % 0 %; Platelet Count 141 10^3/cmm (130-400); Red Blood Count 4.07 10^6/uL (4.1-5.3); Red Cell Distribution Width 13.6 % (12.1-15.1); White Blood Count 3.9 10^3/uL (4.0-10.0)
[2020-12-06 12:34] LABS: Bilirubin Urine Neg (Negative); Blood Urine Neg (Negative); Glucose Urine UA Norm (Normal); Ketones Urine Negative (Negative); Nitrate Urine Negative (Negative); Protein Urine Trace (Negative); Urine Appearance Cloudy (CLEAR); Urine Color Yellow (Yellow); Urobilinogen Urine Norm (Negative); pH Urine 5 (5-7)
[2020-12-06 12:35] LABS: Add Urine Microscopic? YES; Leukocyte Esterase Urine 2+ (Negative)
[2020-12-06 12:42] LABS: Add Urine Culture? Yes; Bacteria Urine 1+ /hpf; Squamous Epithelial Cell Urine 0-4 /hpf (0-5); WBC Urine >100 /hpf (0-5)
[2020-12-06 13:02] LABS: Alanine Aminotransferase 9 U/L (0-41); Albumin Level 3.9 g/dL (3.5-5.2); Alkaline Phosphatase 88 IU/L (40-130); Anion Gap 14.4 (5-19); Aspartate Amino Transferase 9 U/L (0-40); Blood Urea Nitrogen 17 mg/dL (8-23); Calcium 8.8 mg/dL (8.5-10.5); Carbon Dioxide 21 mmol/L (22-29); Chloride 109 mmol/L (98-107); Globulin 2.3 g/dL (1.3-4.6); Glucose 98 mg/dL (65-115); Lipase 32 U/L (13-60); Osmolality Calculated 292 mOsm/kg (285-295); Potassium 4.4 mmol/L (3.5-5.1); Sodium 140 mmol/L (136-145); Total Bilirubin 0.5 mg/dL (0.15-1.2); Total Protein 6.2 g/dL (6.6-8.7)
[2020-12-06 13:03] LABS: Troponin(5th) Baseline 13 ng/L (0-15)
--- NOTE | 2020-12-06 13:12 | ECG_ITS ---
[facility] Test Date: 2020-12-06 Pat Name: Mike Silva Department: Room: Gender: Male Digital Marketing Associate: : 1945 Requested By: Grabiel Crystal Order Number: [id number] Cheko MD: Carolyn Joe M.D. Measurements Intervals [place] Rate: 56 P: 33 MO: 161 QRS: 5 QRSD: 91 T: 43 QT: 409 QTc: 397 Interpretive Statements SINUS BRADYCARDIA WITH SINUS ARRHYTHMIA SEPTAL MYOCARDIAL INFARCTION , OF INDETERMINATE AGE [40+ ms Q WAVE IN V1/V2] Compared to ECG 12/06/2020 11:59:29 No significant changes Electronically Signed On 12-06-2020 19:35:59 CDT by Carolyn Joe M.D. [id number]
--- NOTE | 2020-12-06 13:15 | ED_ITS ---
HPI - General Adult General: Chief complaint: Altered Mental Status Stated complaint: GENERALIZED WEAKNESS History of Present Illness: HPI narrative: Patient is a 75-year-old male with a history of COPD presents the emergency room with 1 day of left-sided facial d gonzalez and dysarthria. Patient was last seen normal yesterday night by his granddaughter who says that at baseline patient is able to talk and is conversant. Since yesterday night, patient has become increasingly confused today. Patient on arrival reports that he has been complaining abdominal bloating, and polyuria. Reports some nausea and vomiting. Denies any flank pain. Denies any p.o. intake. Patient reports subjective chills at home. Onset: Yesterday night Duration:1 day Location:home Severity:moderate Review of Systems Narrative: Constitutional: No fever, no chills. HEENT: No vision changes CV: No chest pain, no palpitations PULM: no cough, no dyspnea. GI: No abdominal pain, +abdominal fullness +N/+V/-D. : No dysuria MSKEL: No muscle pain SKIN: No new rashes, no lesions. NEURO: No headache, no focal weakness. +l sided facial droop and dysathria HEME: No visible bruises PSYCH: Normal mood PFSH ED PFSH: Medical History (Updated 12/06/20 @ 14:12 by Hipolito Jarrell MD) Anxiety Arthritis of right acromioclavicular joint Bloody stool Change in bowel habit Chronic kidney disease, stage III (moderate) Depression GENESIS (generalized anxiety disorder) GERD (gastroesophageal reflux disease) Hypertension Melena Recurrent UTI Sprain of right shoulder Squamous cell carcinoma of penis Urethral stricture Surgical History History of knee surgery History of laparoscopic cholecystectomy Family History Denies family history of Anesthesia complication Bleeding disorder Social History Second hand smoke exposure: No Alcohol intake: current Alcohol intake frequency: holidays/special occasions only Alcohol type: beer Desire information about alcohol rehabilitation?: No Adopted: No Caregiver/support person: Yes Lives independently: Yes Household members: significant other Housing: House Marital status: / Highest education level completed: High School Graduate service: No Current occupational status: retired Current occupational exposures/hazards: No Pets and animals: No History of recent travel: No Sexually active: No Current gender identity: Male Tri/Yazidi: Holiness Special tri needs: No Agree to transfusion: No Financial difficulty paying for basics: Decline to Answer Physical Exam Narrative: EXAM NARRATIVE: Head: Atraumatic Eyes: PERRL, conjunctiva without injection ENT: Mucous membrane moist NECK: Supple, ROM intact LUNGS: LCTAB, no crackles/rhonchi CV: RRR ABDOMEN: Soft, nontender in all quadrants EXTREMITY: Normal ROM SKIN: No rash or erythema NEURO: Mental status? Awake, alert, and oriented to self, year, month, location, and situation.? Following simple axial and appendicular commands.? Has appropriate fund of knowledge, comprehension, and insight.? Able to recall and understands pertinent aspects of medical history and current treatment status.? ? Language? Speech is fluent without word-finding difficulties.? 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 ? Cranial nerves? 2,3,4,6: PERRL, EOMI with no nystagmus. 5: Intact sensation to light touch, symmetric? 7: L sided face 8: Hearing grossly intact.? 9,10: Normal palate movement.? 11: Normal strength in trapezius bilaterally 12: Tongue protrudes midline.? ? Motor examination? Normal bulk & tone. Strength as follows (R/L): Delts (5/5), Biceps (5/5), Triceps (5/5), Wrist ext (5/5), hip flexors (5/5), plantarflexors (5/5), dorsiflexors (5/5). ? Reflexs? Deep tendon examination (R/L): Biceps (2+/2+), Brachialis (2+/2+), Triceps (2+/2+), Knee jerk (2+/2+), Ankle Jerk (1+, 1+), Plantars (down/down) ? Sensation? Light Touch: Grossly intact and equal in upper and lower extremities bilaterally? Romberg: Negative.? Distal joint position sense intact ? Coordination? Uulrqz-ey-dqgy-finger movements intact without dysmetria or past-pointing.? Rapid fingertaps: preserved amplitude without decriment.? No tremor, myoclonus or truncal ataxia.? ? Gait/stance? Steady, normal narrow base gait with appropriate arm swing and turning.? Tandem gait without hesitation or loss of balance. PSYCH: Normal mood and affect Course Vital Signs: Vital signs: Vital Signs Temperature 98.2 F 12/07/20 12:00 Pulse Rate 62 12/07/20 12:00 Respiratory Rate 16 12/07/20 12:00 Blood Pressure 160/72 12/07/20 12:00 Pulse Oximetry 97 12/07/20 12:00 MDM - General Adult MDM Narrative: Medical decision making narrative: 75-year-old male presents emergency room with polyuria, dysuria, and new onset of left-sided facial droop and dysarthria X1 day. Outside of TPA window. No other focal neurological deficit on exam. UA is consistent with UTI. Patient has a history of enterococcal coccus UTI infection. Will treat with ceftriaxone and vancomycin today. He will be admitted to the hospital for stroke work-up today. Lab Data: Labs: Lab Results 12/06/20 12/06/20 12/06/20 12:00 12:00 12:00 WBC 3.9 10^3/uL L 10^ 3/uL (4.0-10.0) RBC 4.07 10^6/uL L 10 ^6/uL (4.1-5.3) Hgb 12.5 g/dL g/dL (11.7-16.6) Hct 39.8 % L % (42.0-52.0) MCV 97.8 fl H fl (80-94) MCH 30.7 pg pg (28.0-34.0) MCHC 31.4 g/dL g/dL (30.0-36.0) RDW 13.6 % % (12.1-15.1) Plt Count 141 10^3/cmm 10^3 /cmm (130-400) MPV 8.7 fL fL (7.4-10.4) Neut % (Auto) 57.9 % % Lymph % (Auto) 27.2 % % [place] % (Auto) 11.8 % % Eos % (Auto) 2.3 % % Baso % (Auto) 0.5 % % Neut # (Auto) 2.25 10^3/uL 10^3 /uL (1.8-7.7) Lymph # (Auto) 1.1 10^3/uL 10^3/ uL (0.8-4.8) [place] # (Auto) 0.5 10^3/uL 10^3/ uL (0.2-0.9) Eos # (Auto) 0.1 10^3/uL 10^3/ uL (0.0-0.8) Baso # (Auto) 0.0 10^3/uL 10^3/ uL (0.0-0.1) Nucleated RBC % (a uto) 0 % % Nucleated RBCs # 0.0 /100WBC /100W BC D-Dimer Sodium 140 mmol/L mmol/L (136-145) Potassium 4.4 mmol/L mmol/L (3.5-5.1) Chloride 109 mmol/L H mmol /L (98-107) Carbon Dioxide 21 mmol/L L mmol/ L (22-29) Anion Gap 14.4 (5-19) BUN 17 mg/dL mg/dL (8-23) Creatinine 1.3 mg/dL H mg/dL (0.7-1.2) GFR Calculation Not Reportable Glucose 98 mg/dL mg/dL (65-115) Calculated Osmolal ity 292 mOsm/kg mOsm/ kg (285-295) Calcium 8.8 mg/dL mg/dL (8.5-10.5) Iron TIBC % Saturation Unsat Iron Binding Total Bilirubin 0.5 mg/dL mg/dL (0.15-1.2) AST 9 U/L U/L (0-40) ALT 9 U/L U/L (0-41) Alkaline Phosphata se 88 IU/L IU/L (40-130) Troponin T Baselin e 13 ng/L ng/L (0-15) NT-Pro-B Natriuret Pep Total Protein 6.2 g/dL L g/dL (6.6-8.7) Albumin 3.9 g/dL g/dL (3.5-5.2) Globulin 2.3 g/dL g/dL (1.3-4.6) Lipase 32 U/L U/L (13-60) Vitamin B12 Folate Procalcitonin TSH Urine Color Urine Appearance Urine pH Ur Specific Gravit y Urine Protein Urine Glucose (UA) Urine Ketones Urine Blood Urine Nitrate Urine Bilirubin Urine Urobilinogen Ur Leukocyte Giselle ase Urine RBC Urine WBC Ur Squamous Epith Cells Amorphous Sediment Urine Bacteria Salicylates Urine Opiates Scre en Acetaminophen Ur Barbiturates Sc reen Ur Phencyclidine S crn Ur Amphetamines Sc reen U Benzodiazepines Scrn Urine Cocaine Scre en U Marijuana (THC) Screen Ethyl Alcohol RPR 3 12/06/20 12/06/20 12/06/20 12:00 12:00 12:00 WBC RBC Hgb Hct MCV MCH MCHC RDW Plt Count MPV Neut % (Auto) Lymph % (Auto) [place] % (Auto) Eos % (Auto) Baso % (Auto) Neut # (Auto) Lymph # (Auto) [place] # (Auto) Eos # (Auto) Baso # (Auto) Nucleated RBC % (a uto) Nucleated RBCs # D-Dimer Sodium Potassium Chloride Carbon Dioxide Anion Gap BUN Creatinine GFR Calculation Glucose Calculated Osmolal ity Calcium Iron TIBC % Saturation Unsat Iron Binding Total Bilirubin AST ALT Alkaline Phosphata se Troponin T Baselin e NT-Pro-B Natriuret Pep Total Protein Albumin Globulin Lipase Vitamin B12 341 pg/mL pg/mL (232-1245) Folate Procalcitonin TSH Urine Color Yellow (Yellow) Urine Appearance Cloudy (CLEAR) Urine pH 5 (5-7) Ur Specific Gravit y 1.020 (1.005-1.030) Urine Protein Trace (Negative) Urine Glucose (UA) Norm (Normal) Urine Ketones Negative (Negative) Urine Blood Neg (Negative) Urine Nitrate Negative (Negative) Urine Bilirubin Neg (Negative) Urine Urobilinogen Norm mg/dL mg/dL (Negative) Ur Leukocyte Giselle ase 2+ H (Negative) Urine RBC None /hpf /hpf (0-2) Urine WBC >100 /hpf H /hpf (0-5) Ur Squamous Epith Cells 0-4 /hpf H /hpf (0-5) Amorphous Sediment Not Reportable Urine Bacteria 1+ /hpf H /hpf (NONE) Salicylates < 0.3 mg/dL L mg/ dL (3-10) Urine Opiates Scre en Positive ng/mL H ng/mL (Negative) Acetaminophen < 5.0 ug/mL L ug/ mL (10-30) Ur Barbiturates Sc reen Negative ng/mL ng /mL (Negative) Ur Phencyclidine S crn Negative ng/mL ng /mL (Negative) Ur Amphetamines Sc reen Negative ng/mL ng /mL (Negative) U Benzodiazepines Scrn Positive ng/mL H ng/mL (Negative) Urine Cocaine Scre en Negative ng/mL ng /mL (Negative) U Marijuana (THC) Screen Negative ng/mL ng /mL (Negative) Ethyl Alcohol < 10 mg/dL mg/dL (0-10) RPR Nonreactive (Nonreactive) 12/06/20 12/06/20 12/06/20 12:00 12:20 12:20 WBC RBC Hgb Hct MCV MCH MCHC RDW Plt Count MPV Neut % (Auto) Lymph % (Auto) [place] % (Auto) Eos % (Auto) Baso % (Auto) Neut # (Auto) Lymph # (Auto) [place] # (Auto) Eos # (Auto) Baso # (Auto) Nucleated RBC % (a uto) Nucleated RBCs # D-Dimer 0.63 ug/mIFEU H u g/mIFEU (0-0.59) Sodium Potassium Chloride Carbon Dioxide Anion Gap BUN Creatinine GFR Calculation Glucose Calculated Osmolal ity Calcium Iron 51 ug/dL L ug/dL (59-158) TIBC 258 mcg/dl mcg/dl % Saturation 19.7 % L % (20-50) Unsat Iron Binding 207 ug/dL ug/dL (112-347) Total Bilirubin AST ALT Alkaline Phosphata se Troponin T Baselin e NT-Pro-B Natriuret Pep 123 pg/mL pg/mL (0-450) Total Protein Albumin Globulin Lipase Vitamin B12 Folate 15.6 ng/mL ng/mL (4.5-32.2) Procalcitonin 0.11 ng/mL ng/mL (0-0.5) TSH 2.44 uIU/mL uIU/m L (0.27-4.20) Urine Color Urine Appearance Urine pH Ur Specific Gravit y Urine Protein Urine Glucose (UA) Urine Ketones Urine Blood Urine Nitrate Urine Bilirubin Urine Urobilinogen Ur Leukocyte Giselle ase Urine RBC Urine WBC Ur Squamous Epith Cells Amorphous Sediment Urine Bacteria Salicylates Urine Opiates Scre en Acetaminophen Ur Barbiturates Sc reen Ur Phencyclidine S crn Ur Amphetamines Sc reen U Benzodiazepines Scrn Urine Cocaine Scre en U Marijuana (THC) Screen Ethyl Alcohol RPR Imaging Data^: Other Imaging: Radiologist's impression: [facility] [id number], [place] [address]UM Scan ReportSigned Patient: Irais Silva #: [id number]: [id number]#:[id number]/Sex: 75 / MADM Date: 12/06/20Loc: ERRoom/Bed:Attending Dr: Ordering Provider/Ordering MD: Grabiel Crystal MD Date of Service: 12/06/20 Procedure(s): CT angio headneck* [id number] Accession Number(s): [id number] Report Number: [id number] WS: [id number] CT angio headneck* [id number] REASON FOR EXAM: stroke TECHNIQUE: Coronal and sagittal 2-D and MIP reformations. IV CONTRAST ADMINISTERED: 95 mL of Visipaque TOTAL EXAM DLP: 2277.[address] scans at [facility] use at least one of these dose optimization techniques: automated exposure control; mA and/or kV adjustment per patient size (includes targeted exams where dose is matched to clinical indication); or iterative reconstruction. FINDINGS: AORTIC ARCH: The origins of the innominate, left carotid, right carotid, and left subclavian arteries are unremarkable. The vertebral artery origins are normal the right vertebral artery is dominant. CERVICAL: Comment carotid arteries in the neck are normal. The origins of the internal carotid arteries are normal. Cervical portions of the vertebral arteries are unremarkable. INTRACRANIAL: The internal carotid arteries, vertebral arteries, and basilar artery through the base of the skull are unremarkable. The carotid siphons are normal. Carotid terminus bilaterally is normal. The anterior and middle cerebral arterial circulations demonstrate no clot, stenosis, aneurysm, or arteriovenous malformation. The left vertebral artery essentially terminates in a small branch that joins with a dominant right vertebral artery to form the basilar artery. It also gives off a large left anterior inferior cerebellar artery. A right anterior inferior cerebellar artery is not identified originating from the right vertebral artery however branches of the right anterior inferior cerebellar artery are identified at the porus acoustic and ascending along the anterior inferior margin of the right cerebellar hemisphere. Superior cerebellar arteries are patent. Posterior cerebral arteries are patent with no clot, stenosis, aneurysm, or arteriovenous malformation. Large posterior communicating artery. Small left posterior communicating artery. CT/CT angio headneck* [id number] IMPRESSION: Normal carotid circulations. Normal right anterior inferior cerebellar artery originating from the right vertebral artery is not identified, however, branches of the more distal right anterior inferior cerebellar artery are visualized, presumably from aberrant origin or collaterals. Unlikely this is the result of an acute occlusion, clinical correlation to be made. Dictated By:Rex Sebastian Jr MDSigned By:Rex Sebastian Jr MDSigned Date/Time:12/06/20 1421DD/ [address], [place] [address]NK Scan ReportSigned Patient: Irais Silva #: [id number]: 1943cct#:[id number]/Sex: 75 / MADM Date: 12/06/20Loc: ERRoom/Bed:Attending Dr: Ordering Provider/Ordering MD: Grabiel Crystal MD Date of Service: 12/06/20 Procedure(s): CT head wo con* [id number] Accession Number(s): [id number] Report Number: [id number] WS: [id number] CT head wo con* [id number] REASON FOR EXAM: stroke IV CONTRAST ADMINISTERED: None TOTAL EXAM DLP: 866.[address] scans at [facility] use at least one of these dose optimization techniques: automated exposure control; mA and/or kV adjustment per patient size (includes targeted exams where dose is matched to clinical indication); or iterative reconstruction. FINDINGS: No midline shift or other significant mass effect. No findings of intracranial hemorrhage and no extra-axial fluid collection noted. Acute focal brain parenchymal abnormality identified in the cerebral hemispheres, cerebellar hemispheres, or brainstem. The examination appears unchanged compared to the previous study of 05/06/2017. CT/CT head wo con* [id number] IMPRESSION: No acute intracranial abnormality. Dictated By:Rex Sebastian Jr MDSigned By:Rex Sebastian Jr MDSigned Date/Time:12/06/20 1354DD/ [address] [address]G Scan ReportSigned Patient: Irais Silva #: [id number]: [id number]#:[id number]/Sex: 75 / MADM Date: 12/06/20Loc: ERRoom/Bed:Attending Dr: Ordering Provider/Ordering MD: Grabiel Crystal MD Date of Service: 12/06/20 Procedure(s): CT abdomen pelvis w con* [id number] Accession Number(s): [id number] Report Number: [id number] WS: [id number] CT ABDOMEN PELVIS TECHNIQUE: Contrast-enhanced CT of the abdomen and pelvis with coronal and sagittal reformatted images. CLINICAL INFORMATION: abd distension COMPARISON: 5 ,017 DLP: 1743.[address] scans at [facility] use at least one of these dose optimization techniques: automated exposure control; mA and/or kV adjustment per patient size (includes targeted exams where dose is matched to clinical indication); or iterative reconstruction. FINDINGS: Mild hepatomegaly. Cholecystectomy. Mild intrahepatic biliary duct dilatation likely physiologic postcholecystectomy is unchanged. Mild fatty atrophy of the pancreas. Fluid distended stomach with food products and air-fluid levels. Small esophageal hiatal hernia. Adrenal glands are normal. Bilateral renal cortical atrophy. No hydronephrosis in either kidney. Small left renal cyst. Right exophytic lower pole renal cyst measuring 1.5 cm slightly increased in size compared to 2017. Slight subsegmental atelectasis right lower lobe. Normal sigmoid colon. No evidence of high-grade small or large bowel obstruction. Normal appendix in the right lower quadrant. Normal caliber abdominal aorta. A few incidental reactive inguinal lymph nodes. Mild prostate enlargement measuring 4.1 cm. Ankylosis lumbar spine L3-L5. Disc osteophyte complex with severe central canal stenosis and small central protruding osteophyte at L2-3. This is slightly progressed compared to 2017. Ankylosis L3- L5. CT/CT abdomen pelvis w con* [id number] IMPRESSION: 1. Prior cholecystectomy. Mild hepatomegaly. 2. Small esophageal hiatal hernia with fluid distended stomach with food products and air-fluid levels. 3. No evidence of high-grade small or large bowel obstruction. 4. Bilateral renal cortical atrophy. 5. Normal caliber abdominal aorta. 6. Sigmoid diverticulosis. No evidence of acute diverticulitis. 7. Prostate enlargement with evidence of mild bladder outlet obstruction. Prostate measures 4.1 CM. Recommend correlation PSA. 8. Moderate to severe central canal stenosis L2-3 with disc osteophyte complex slightly progressed compared to 2017. Dictated By:Panfilo Ennis MDSigned By:Panfilo Ennis MDSigned Date/Time:12/06/20 1413DD/ 1400 Discharge Plan Discharge Patient Disposition: Admitted As Inpatient Admit Provider: Hipolito Jarrell Clinical Impression: Confusion, Facial droop, Dysarthria, Acute UTI Condition: Stable Coding Level of Care Code ED Elastic Attacher Zigzag for Cielo Chopra
[2020-12-06] MEDS: iodixanol 320 mg/mL 100mL Btl IV (13:35)
--- NOTE | 2020-12-06 14:10 | P.HP_ITS ---
Providers/Chief Complaint Primary Care Provider: Mee Natarajan MD Chief Complaint: GENERALIZED WEAKNESS History of Present Illness Mike Silva is a 75 year old male with past medical history of squamous cell carcinoma of penis, urethral stricture, recurrent UTIs, self- catheterization, GERD, depression, recent COVID-19 in September 2020. Most of the history taken through ER note and record reference. On examination patient zoe marylin comfortably in bed. He states he is not really sure why he is in the hospital. He says he was told he was confused but he thinks he is okay. He is AO x3. States he has been having occasional abdominal pain and nausea with vomiting for last few days. He states he lives by himself and takes care of his animals but his children are around but no one gets along with each other. As per the ER documentation patient has been having 1 day of left-sided facial droop and dysarthria and was last seen normal by granddaughter last night. No numbers in the chart for the granddaughter. Patient states he has not washed his face today so will not be able to see if he has a facial droop currently or not. He denies any weakness in any of the arms, slurred speech, bowel or bladder accidents, dizziness, difficulty or change in vision. He states he has been having difficulty in passing urine but that has improved than before. He denies any sick contacts, difficulty in breathing reports occasional cough, denies any diarrhea, headaches, fall. He wants to go home as soon as possible to take care of his animals. Blood work in the ER showed a white count of 3.9, hemoglobin of 12.5, sodium of 140, chloride of 109, creatinine of 1.3, AST/ALT of 9/9, baseline troponin of 13 with a delta of -0.8, UA showing 2+ leuk esterase, more than [address] imaging as below. Review of Systems General: Reports: 10 or more systems reviewed and unremarkable except in HPI and below Const: Denies: fever(s), chills, body aches, change in appetite, change in weight, malaise, night sweats, diaphoresis, change in sleep pattern, daytime sleepiness or snoring Eyes: Denies: change in vision, blurry vision, photophobia, eye discomfort or eye discharge ENMT: Denies: throat pain, enlarged tonsils, hoarseness, mouth pain, oral sores, dry mouth, tinnitus, nasal congestion or post nasal drip Card: Denies: chest pain, palpitations, irregular heart rhythm, edema, swelling of feet/ankles, lightheadedness, syncope, pre-syncope, dyspnea on exertion, orthopnea, leg pain with exertion or acrocyanosis Resp: Denies: dyspnea, productive cough, non-productive cough, wheezing, stridor, pain on inspiration, change in phlegm color, hemoptysis or chest congestion GI: Denies: abdominal pain, nausea, vomiting, hematemesis, coffee ground emesis, dysphagia, heartburn, diarrhea, constipation, bloating, GI cramping, change in bowel habits, pain on defecation, hematochezia or melena : Denies: flank pain, difficulty urinating, dysuria, urinary frequency, urinary urgency, urinary hesitancy, urinary dribbling, difficulty starting urination, change in urine stream, nocturia or hematuria Musc: Denies: neck pain, back pain, extremity pain, joint pain, joint swel ling, joint redness, joint stiffness or limited range of motion Neuro: Denies: headache(s), numbness in extremities, weakness in extremities, sensory changes, lack of coordination, difficulty walking, frequent falls, dizziness, vertigo, confusion, Slurred speech present, difficulty communicating thoughts or seizure-like activity Psych: Denies: anxiety, depression, mood swings, panic attacks, hopelessness or irritability Endo: Denies: polyuria, polydipsia, tired all the time, cold intolerance, excessive sweating, flushing or heat intolerance Cliff/Lymph: Denies: easy bruising or easy bleeding All/Imm: Denies: tongue swelling, facial swelling or acute wheezing Medications/Allergies Home Medications Medication Instructions Recorded Confirmed Last Taken Type hydrocodone 7.5 mg-acetaminophen 1 tab PO BID PRN 03/13/19 12/06/20 10/04/20 History 325 mg tablet apixaban 5 mg tablet 5 mg PO BID tab 03/20/19 12/06/20 10/04/20 History mirtazapine 15 mg tablet 15 mg PO DAILY 03/20/19 12/06/20 10/04/20 History metoprolol tartrate 25 mg tablet 50 mg PO BID tab 04/06/19 12/06/2010/04/21 History cetirizine 10 mg tablet 10 mg PO DAILY PRN 09/18/19 12/06/20 10/04/20 History ascorbic acid (vitamin C) 1,000 mg 1 gm PO BID tab 09/19/19 12/06/20 10/04/20 History tablet lisinopril 10 mg PO DAILY 10/17/19 12/06/20 10/04/20 History methenamine hippurate 1 gram tablet 1 g PO BID #60 tab 08/08/20 12/06/20 10/04/20 Rx amlodipine 5 mg PO DAILY 10/04/20 12/06/20 10/04/20 History omeprazole 20 mg PO DAILY 10/04/20 12/06/20 10/04/20 History alprazolam 1 mg tablet 1 mg PO BID PRN #60 tab 11/18/20 12/06/20 Unknown Rx fluvoxamine 50 mg PO BID 12/06/20 12/06/20 Unknown History Allergies Allergy/AdvReac Type Severity Reaction Status Date / Time Penicillins Allergy Intermediate rash Verified 11/18/20 09:41 sulfamethoxazole Allergy Hallucianti Verified 11/18/20 09:41 [From Bactrim] ons trimethoprim [From Bactrim] Allergy Hallucianti Verified 11/18/20 09:41 ons PFSH Acute PFSH: Medical History (Updated 12/06/20 @ 14:12 by Hipolito Jarrell MD) Anxiety Arthritis of right acromioclavicular joint Bloody stool Change in bowel habit Chronic kidney disease, stage III (moderate) Depression GENESIS (generalized anxiety disorder) GERD (gastroesophageal reflux disease) Hypertension Melena Recurrent UTI Sprain of right shoulder Squamous cell carcinoma of penis Urethral stricture Surgical History History of knee surgery History of laparoscopic cholecystectomy Family History Denies family history of Anesthesia complication Bleeding disorder Social History Second hand smoke exposure: No Alcohol intake: current Alcohol intake frequency: holidays/special occasions only Alcohol type: beer Desire information about alcohol rehabilitation?: No Adopted: No Caregiver/support person: Yes Lives independently: Yes Household members: significant other Housing: House Marital status: / Highest education level completed: High School Graduate service: No Current occupational status: retired Current occupational exposures/hazards: No Pets and animals: No History of recent travel: No Sexually active: No Current gender identity: Male Tri/Jain: Quaker Special tri needs: No Agree to transfusion: No Financial difficulty paying for basics: Decline to Answer Vitals/I&O/Wt Last Vital Signs Temp 96.1 F L 12/06/20 10:59 Pulse 58 L 12/06/20 11:17 Resp 16 12/06/20 10:59 BP 141/73 12/06/20 11:17 Pulse Ox 97 12/06/20 11:17 Weight last 48 hrs Weight 92.986 kg Physical Exam Narrative: EXAM NARRATIVE: General: No acute distress, AO x3 HEENT: PERRLA, pupils bilaterally equal and reactive Chest: Normal vesicular breath sounds, no added sounds, equal good air entry bilaterally CVS: S1-S2 regular, no murmurs, no tachycardia, no gallops, no rubs Abdomen: Soft, nontender, no organomegaly, bowel sounds present Neuro: No focal deficits, no facial deformity, AO x3, power 5/5 in all limbs Data : 12/06/20 12:00 12/06/20 12:00 A&P Assessment and plan (1) Acute UTI: Status: Acute (2) Facial droop: Status: Acute (3) Confusion: Status: Acute (4) Urethral stricture: Status: Acute Qualifiers: Urethral stricture sex-location: male urethra-meatus Urethral stricture type: post-procedural Qualified Code(s): N99.110 - Postprocedural urethral stricture, male, meatal (5) Squamous cell carcinoma of penis: Status: Acute (6) Chronic kidney disease, stage III (moderate): Status: Chronic Additional A&P Information Confusion: Metabolic encephalopathy: Not sure is real. Patient could be at his baseline. Can be secondary to UTI versus a possible stroke. History of recurrent UTIs most likely secondary to urethral strictures in setting of squamous cell carcinoma of penis. On review of culture history patient has been positive with urine culture for Enterococcus, Morganella, Citrobacter in last 2 years. Check procalcitonin, blood culture, urine culture, MRSA swab. CT abdomen pelvis negative for any signs of urinary obstruction. For now start patient on vancomycin and ceftriaxone to cover for Enterococcus and gram-negative's. Will de-escalate as per culture results. Check urine drug screen, alcohol level, Tylenol level, RPR, vitamin B12 and folate level. CT head in ER negative for any acute bleed. Patient does not have any electrolyte abnormality to cause encephalopathy. LFTs within normal limit so will not do ammonia. Facial droop: Not sure if new. Cannot rule out stroke. CT head, CTA head and neck done in the ER. Telemetry. Check echocardiogram. PT/OT/speech evaluation. Check HbA1c, lipid panel. Continue home dose with Eliquis. Start patient on aspirin, statins. CKD: Baseline creatinine seems to be ranging from 1.2-1.4. Currently 1.3. Medical reconciliation done for nephrotoxic drugs. IV fluid normal saline at 50 cc/h. Hold off on lisinopril. Anxiety: Continue with home dose of Xanax as needed. Patient was seen by psych on last admission for threatening behavior and was cleared. Continue home dose of mirtazapine. Continue other chronic medications. Full code. Cardiac diet. Famotidine for PUD prophylaxis. Eliquis will help with DVT prophylaxis. Patient eager to go home. We will change treatment as per results of the labs and clinical picture. Attestations Medical Necessity Statement*: Admission for more than 2 midnights for management of metabolic encephalopathy secondary to UTI versus possible stroke in setting of facial droop Time Spent in Patient Care: Greater than 35 minutes (>than 50% of time spent in counselling and/or direct pt care on unit) . Coding Level of Care Code Acute [facility] for [facility] Fwd Diagnoses Acute UTI N39.0 Facial droop R29.810 Confusion R41.0 Urethral stricture N99.110 Urethral stricture sex-location: male urethra-meatus Urethral stricture type: post-procedural Squamous cell carcinoma of penis C60.9 Chronic kidney disease, stage III (moderate) N18.30
[2020-12-06] MEDS: cefTRIAXone 1,000 MG in sodium chloride 0.9% (plus) 50 ML 100 MG IV (14:49)
[2020-12-06 14:51] LABS: Amphetamines Screen Urine Negative (Negative); Barbiturates Screen Urine Negative (Negative); Benzodiazepines Screen Urine Positive (Negative); Cocaine Screen Urine Negative (Negative); Opiate Screen Urine Positive (Negative); PCP Screen Urine Negative (Negative); THC Screen Urine Negative (Negative)
[2020-12-06 15:01] LABS: D Dimer 0.63 ug/mIFEU (0-0.59); NT Pro B Type Natriuretic Pept 123 pg/mL (0-450); Procalcitonin 0.11 ng/mL (0-0.5); Thyroid Stimulating Hormone 2.44 uIU/mL (0.27-4.20)
[2020-12-06 15:12] LABS: Iron 51 ug/dL (59-158); Percent Saturation 19.7 % (20-50); Total Iron Binding Capacity 258 mcg/dl; Unsaturated Iron Binding 207 ug/dL (112-347)
[2020-12-06 15:15] LABS: Troponin 5 2HR 12.18 ng/L (0-15)
[2020-12-06 15:19] LABS: Troponin 5 2HR Delta -0.82 ABS# (0-10)
[2020-12-06] MEDS: tamsulosin 0.4 mg Capsule PO (15:49)
[2020-12-06] MEDS: vancomycin 1,000 MG in sodium chloride 0.9% 250 ML 250 MG IV (15:52)
[2020-12-06 16:09] LABS: Acetaminophen < 5.0 ug/mL (10-30); Alcohol Level < 10 mg/dL (0-10); Rapid Plasma Reagin Syphilis Nonreactive (Nonreactive); Salicylate < 0.3 mg/dL (3-10)
[2020-12-06 16:16] LABS: Folate Level 15.6 ng/mL (4.5-32.2)
--- NOTE | 2020-12-06 17:12 | ECG_ITS ---
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 Measurements Intervals Anthony Rate: 67 P: 41 AK: 164 QRS: 9 QRSD: 81 T: 51 QT: 394 QTc: 418 Interpretive Statements SINUS RHYTHM SEPTAL MYOCARDIAL INFARCTION , OF INDETERMINATE AGE [40+ ms Q WAVE IN V1/V2] Compared to ECG 12/06/2020 14:18:33 Sinus bradycardia no longer present Sinus arrhythmia no longer present Myocardial infarct finding still present Electronically Signed On 12-06-2020 19:34:50 CDT by Carolyn Joe M.D. [id number]
[2020-12-06 17:30] LABS: Vitamin B12 341 pg/mL (232-1245)
[2020-12-06] MEDS: famotidine 20 mg/2 mL INJ IVP (18:39)
[2020-12-06] MEDS: ferrous gluconate 324 mg Tablet PO (18:39)
[2020-12-06] MEDS: metoprolol tartrate 25 mg Tablet PO (18:39)
[2020-12-06] MEDS: apixaban 5 mg Tablet PO (18:39)
[2020-12-06] MEDS: sodium chloride 0.9% 1,000 ML 50 ML IV (18:44)
[2020-12-06 19:05] LABS: Troponin 5 6HR 12.29 ng/L (0-15)
[2020-12-06 19:10] LABS: Troponin 5 6HR Delta -0.71 ng/L (0-12)
[2020-12-06] MEDS: vancomycin 1,500 MG/300 ML PIGGYBACK 200 MG IV (20:40)
[2020-12-07 04:00] VITALS: BP 167/69; PULSE 60; RESP 22; TEMP 37.1; O2SAT 97
[2020-12-07 05:07] LABS: Basophils % 0.6 %; Eosinophils # 0.1 10^3/uL (0.0-0.8); Eosinophils % 3.3 %; Hematocrit 39.1 % (42.0-52.0); Hemoglobin 12.4 g/dL (11.7-16.6); Lymphocytes # 0.7 10^3/uL (0.8-4.8); Lymphocytes % 21.4 %; Mean Corpuscular HGB Conc 31.7 g/dL (30.0-36.0); Mean Corpuscular Hemoglobin 30.9 pg (28.0-34.0); Mean Corpuscular Volume 97.5 fl (80-94); Mean Platelet Volume 9.1 fL (7.4-10.4); Monocytes # 0.3 10^3/uL (0.2-0.9); Monocytes % 10.2 %; Neutrophils # 2.14 10^3/uL (1.8-7.7); Neutrophils % 64.5 %; Nucleated Red Blood Cells % 0 %; Platelet Count 128 10^3/cmm (130-400); Red Blood Count 4.01 10^6/uL (4.1-5.3); Red Cell Distribution Width 13.3 % (12.1-15.1); White Blood Count 3.3 10^3/uL (4.0-10.0)
[2020-12-07] MEDS: famotidine 20 mg/2 mL INJ IVP (05:22)
[2020-12-07 05:34] LABS: Estmated Average Glucose 111; Hemoglobin A1C 5.5 % (4.0-6.0)
[2020-12-07 05:35] LABS: Alanine Aminotransferase 11 U/L (0-41); Albumin Level 3.6 g/dL (3.5-5.2); Alkaline Phosphatase 81 IU/L (40-130); Aspartate Amino Transferase 11 U/L (0-40); Blood Urea Nitrogen 13 mg/dL (8-23); Calcium 9.3 mg/dL (8.5-10.5); Carbon Dioxide 23 mmol/L (22-29); Chloride 108 mmol/L (98-107); Globulin 2.7 g/dL (1.3-4.6); Glucose 130 mg/dL (65-115); Magnesium 1.2 mg/dL (1.7-2.3); Osmolality Calculated 292 mOsm/kg (285-295); Sodium 140 mmol/L (136-145); Total Bilirubin 0.4 mg/dL (0.15-1.2); Total Protein 6.3 g/dL (6.6-8.7)
[2020-12-07 05:59] LABS: Chol HDL Ratio 3.85 mg/dL (1.0-5.00); Cholesterol 127 mg/dL (0-200); HDL Cholesterol 33 mg/dL (60-100); LDL Cholesterol Calculated 78 mg/dL (50-129); LDL HDL Ratio 2.36 RATIO (0.00-3.22); Triglycerides 80 mg/dL (0-150)
[2020-12-07 07:20] VITALS: BP 156/86; PULSE 67; RESP 16; TEMP 36.8; O2SAT 97
--- NOTE | 2020-12-07 08:00 | USCV_ITS ---
Mike Silva Age: 75 Gender: M : 1945 Exam Date: 12/07/2020 11:18 Ordering Phys: Hipolito Jarrell MD Technologist: Brittany Anne Exam Location[place] [facility] [place]ication: Stroke, bradycardia BP: 167 / 69 HR: 66 Rhythm: Sinus Technical Quality: Fair MEASUREMENTS (Male / Female) Normal Values 2D ECHO LV Diastolic Diameter PLAX 3.6 cm 4.2 - 5.9 / 3.9 - 5.3 cm LV Systolic Diameter PLAX 2.1 cm LV Chamber Size 4.6 cm IVS Diastolic Thickness 1.8 cm 0.6 - 1.0 / 0.6 - 0.9 cm IVS Systolic Thickness 1.9 cm LVPW Diastolic Thickness 1.0 cm 0.6 - 1.0 / 0.6 - 0.9 cm LVPW Systolic Thickness 1.2 cm RV Chamber Size 2.5 cm LVOT Diameter 1.9 cm LV Ejection Fraction 2D Teich 74.6 % LV Ejection Fraction MOD 2C 66.3 % LV Ejection Fraction 2C AL 67.5 % LA Diameter 3.9 cm LA Width 2.7 cm LA Height 5.1 cm RA Width 2.6 cm RA Height 5.2 cm Aorta at Sinotubular Diameter 3.3 cm M-MODE LV Diastolic Diameter MM 5.3 cm 4.2 - 5.9 / 3.9 - 5.3 cm LV Systolic Diameter MM 2.8 cm LV Ejection Fraction MM Teich 78.1 % IVS Diastolic Thickness MM 1.2 cm 0.6 - 1.0 / 0.6 - 0.9 cm IVS Systolic Thickness MM 1.8 cm LVPW Diastolic Thickness MM 1.1 cm 0.6 - 1.0 / 0.6 - 0.9 cm LVPW Systolic Thickness MM 2.1 cm RV Diastolic Diameter MM 1.3 cm Aortic Annulus Diameter 3.6 cm LA Ao Ratio MM 1.3 MV E Point Septal Separation 0.4 cm DOPPLER AV Peak Velocity 149.0 cm/s LVOT Peak Velocity 140.0 cm/s AV Area Cont Eq vti 2.8 cm squared AV Area Cont Eq pk 2.7 cm squared MV Area PHT 3.3 cm squared Mitral E to A Ratio 1.1 MV E' Velocity 44.5 cm/s Mitral E to MV E' Ratio 10.4 Mitral E to LV E' Lateral Ratio 9.9 Mitral E to LV E' Septal Ratio 11.0 TR Peak Velocity 288.0 cm/s TR Peak Gradient 33.2 mmHg TV Peak E Velocity 50.0 cm/s Right Atrial Pressure 3.0 mmHg Pulmonary Artery Systolic Pressu 36.2 mmHg PV Peak Velocity 103.0 cm/s RV Acceleration Time 0.1 s RV Ejection Time 0.3 s RV AcT/ET 0.3 FINDINGS Left Ventricle Normal left ventricular size. LV systolic function is normal with EF of 55-60%. No regional wall motion abnormalities. Normal diastolic filling pattern. Right Ventricle The right ventricle is normal in size and function. Right Atrium The right atrium is normal in size. Left Atrium The left atrium is normal in size. Mitral Valve Structurally normal mitral valve without significant stenosis or prolapse. There is no mitral regurgitation. Aortic Valve Structurally normal aortic valve without significant sclerosis or stenosis. There is no aortic regurgitation. Tricuspid Valve Structurally normal tricuspid valve without significant stenosis or regurgitation. Insufficient TR jet to calculate RVSP Pulmonic Valve Structurally normal pulmonic valve without significant stenosis. There is no pulmonic regurgitation. Pericardium Normal pericardium without effusion. Aorta Normal ascending aorta dimension. CONCLUSIONS LV systolic function is normal with EF of 55-60% Diastolic function is normal No significant valvular heart disease Compared to prior echocardiogram from 03/01/2017, no significant changes are noted Toro Fonseca MD (Electronically Signed) Final Date: 08 December 2020 17:42 S
[2020-12-07] MEDS: mirtazapine 15 mg Tablet PO (09:12)
[2020-12-07] MEDS: tamsulosin 0.4 mg Capsule PO (09:12)
[2020-12-07] MEDS: apixaban 5 mg Tablet PO (09:12)
[2020-12-07] MEDS: ferrous gluconate 324 mg Tablet PO (09:12)
[2020-12-07] MEDS: amlodipine 5 mg Tablet PO (09:12)
[2020-12-07] MEDS: metoprolol tartrate 25 mg Tablet PO (09:12)
[2020-12-07 12:00] VITALS: BP 160/72; PULSE 62; RESP 16; TEMP 36.8; O2SAT 97
[2020-12-07] MEDS: cefTRIAXone 1,000 MG in sodium chloride 0.9% (plus) 50 ML 100 MG IV (12:20)
--- NOTE | 2020-12-07 13:36 | PM.DCS ---
Discharge Providers Date of Admission: 12/06/20 14:07 Date of Discharge: December 07, 2020 Attending Provider at Admission: Hipolito Jarrell MD Attending Provider at Discharge: Hipolito Jarrell MD Primary Care Provider: Mee Natarajan MD Diagnoses at Discharge Discharge Diagnosis (1) Acute UTI: Status: Acute (2) Facial droop: Status: Acute (3) Confusion: Status: Acute (4) Urethral stricture: Status: Acute Qualifiers: Urethral stricture type: post-procedural Urethral stricture sex-location: male urethra-meatus Qualified Code(s): N99.110 - Postprocedural urethral stricture, male, meatal (5) Squamous cell carcinoma of penis: Status: Acute (6) Chronic kidney disease, stage III (moderate): Status: Chronic Reason for Visit Reason for Visit: GENERALIZED WEAKNESS Hospital Course Hospital Course Mike Silva is a 75 year old male with past medical history of squamous cell carcinoma of penis, urethral stricture, recurrent UTIs, self-catheterization, GERD, depression, recent COVID-19 in September 2020. Most of the history taken through ER note and record reference. On examination patient lying comfortably in bed. He states he is not really sure why he is in the hospital. He says he was told he was confused but he thinks he is okay. He is currently AO x3. States he has been having occasional abdominal pain and nausea with vomiting for last few days. He states he lives by himself and takes care of his animals but his grand children from adopted children are around but no one gets along with each other. As per the ER documentation patient has been having 1 day of left-sided facial droop and dysarthria and was last seen normal by granddaughter last night. No numbers in the chart for the granddaughter. Patient states he has not washed his face today so will not be able to see if he has a facial droop currently or not. He denies any weakness in any of the arms, slurred speech, bowel or bladder accidents, dizziness, difficulty or change in vision. He states he has been having difficulty in passing urine but that has improved than before. He denies any sick contacts, difficulty in breathing reports occasional cough, denies any diarrhea, headaches, fall. He wants to go home as soon as possible to take care of his animals. Blood work in the ER showed a white count of 3.9, hemoglobin of 12.5, sodium of 140, chloride of 109, creatinine of 1.3, AST/ALT of 9/9, baseline troponin of 13 with a delta of -0.8, UA showing 2+ leuk esterase, more than [address] imaging as below. Patient was sent to the hospital for further evaluation. They were concerns of possible TIA versus stroke for ER physician so multiple head imagings were done which came back negative. Patient did well with physical and Occupational Therapy evaluation. There was some concerns of possible confusion secondary to metabolic encephalopathy from UTI given his history of urethral stricture in setting of squamous cell carcinoma of the penis and recurrent UTI so he was started on broad-spectrum antibiotics. During hospitalization patient remained afebrile and hemodynamically stable. He was found to be mildly hypotensive and bradycardic. His antihypertensives were adjusted. Patient mentation remained at its baseline. He states his symptoms of difficulty in urination and dysuria has been improving since he went to his new primary care provider. Patient has been insistent on being discharged back home. He is being discharged in hemodynamically stable condition on oral Levaquin and Augmentin for 5 more days to finish a course of antibiotics. Please advised to follow-up with his primary care provider within next 3 days for follow-up on urine culture which is still pending for further adjustment of antibiotics if needed. Home health has been arranged prior to discharge. Continue lisinopril, amlodipine dose has been increased to 10 mg daily, metoprolol has been changed to Coreg 6.25 twice daily. Please take Augmentin and Levaquin which are the antibiotic for next 5 days. If you have any rash please stop taking Augmentin. Physical Exam Narrative: EXAM NARRATIVE: General: No acute distress, AO x3 HEENT: PERRLA, pupils bilaterally equal and reactive Chest: Normal vesicular breath sounds, no added sounds, equal good air entry bilaterally CVS: S1-S2 regular, no murmurs, no tachycardia, no gallops, no rubs Abdomen: Soft, nontender, no organomegaly, bowel sounds present Neuro: No focal deficits, no facial deformity, AO x3, power 5/5 in all limbs Discharge Data Data Completed and Pending: Completed Studies During Hospitalization Category Date Time Status CT abdomen pelvis w con* [id number] Urge nt Cat Scan 12/06/20 11:[address] angio headneck * [id number] Urge nt Cat Scan 12/06/20 11:[address] head wo con* [id number] Urgent Cat Scan 12/06/20 11:57 Completed Pending at discharge Category Date Time Status Blood Culture Sta t Lab 12/06/20 15:10 Results Urine Culture Sta t Lab 12/06/20 12:00 Results Vancomycin Trough Timed Lab 12/08/20 07:00 Ordered CV. echo complete * [id number] Routine Ultrasound 12/07/20 08:00 Taken Labs from last 24 hours 12/07/20 12/07/20 12/07/20 04:14 04:14 04:14 WBC 3.3 L RBC 4.01 L Hgb 12.4 Hct 39.1 L MCV 97.5 H MCH 30.9 MCHC 31.7 RDW 13.3 Plt Count 128 L MPV 9.1 Neut % (Auto) 64.5 Lymph % (Auto) 21.4 Clarke % (Auto) 10.2 Eos % (Auto) 3.3 Baso % (Auto) 0.6 Neut # (Auto) 2.14 Lymph # (Auto) 0.7 L Clarke # (Auto) 0.3 Eos # (Auto) 0.1 Baso # (Auto) 0.0 Nucleated RBC % (a uto) 0 Nucleated RBCs # 0.0 D-Dimer Sodium 140 Potassium 4.0 Chloride 108 H Carbon Dioxide 23 Anion Gap 13.0 BUN 13 Creatinine 1.1 GFR Calculation Not Reportable Glucose 130 H Estimat Average Gl ucose Hemoglobin A1c Calculated Osmolal ity 292 Calcium 9.3 Phosphorus 2.0 L Magnesium 1.2 L Iron TIBC % Saturation Unsat Iron Binding Total Bilirubin 0.4 AST 11 ALT 11 Alkaline Phosphata se 81 Troponin T 120 Min lower [place] Delta Troponin T Troponin T Hi Sens 6Hr Troponin T Hi Sens 6Hr Delta NT-Pro-B Natriuret Pep Total Protein 6.3 L Albumin 3.6 Globulin 2.7 Triglycerides 80 Cholesterol 127 LDL Cholesterol, C alc 78 HDL Cholesterol 33 L LDL/HDL Ratio 2.36 Cholesterol/HDL Ra alfredo 3.85 Vitamin B12 Folate Procalcitonin TSH Salicylates Urine Opiates Scre en Acetaminophen Ur Barbiturates Sc reen Ur Phencyclidine S crn Ur Amphetamines Sc reen U Benzodiazepines Scrn Urine Cocaine Scre en U Marijuana (THC) Screen Ethyl Alcohol RPR 12/07/20 12/06/20 12/06/20 04:14 18:20 14:35 WBC RBC Hgb Hct MCV MCH MCHC RDW Plt Count MPV Neut % (Auto) Lymph % (Auto) Clarke % (Auto) Eos % (Auto) Baso % (Auto) Neut # (Auto) Lymph # (Auto) Clarke # (Auto) Eos # (Auto) Baso # (Auto) Nucleated RBC % (a uto) Nucleated RBCs # D-Dimer Sodium Potassium Chloride Carbon Dioxide Anion Gap BUN Creatinine GFR Calculation Glucose Estimat Average Gl ucose 111 Hemoglobin A1c 5.5 Calculated Osmolal ity Calcium Phosphorus Magnesium Iron TIBC % Saturation Unsat Iron Binding Total Bilirubin AST ALT Alkaline Phosphata se Troponin T 120 Min lower [place] 12.18 Delta Troponin T -0.82 L Troponin T Hi Sens 6Hr 12.29 Troponin T Hi Sens 6Hr Delta -0.71 L NT-Pro-B Natriuret Pep Total Protein Albumin Globulin Triglycerides Cholesterol LDL Cholesterol, C alc HDL Cholesterol LDL/HDL Ratio Cholesterol/HDL Ra alfredo Vitamin B12 Folate Procalcitonin TSH Salicylates Urine Opiates Scre en Acetaminophen Ur Barbiturates Sc reen Ur Phencyclidine S crn Ur Amphetamines Sc reen U Benzodiazepines Scrn Urine Cocaine Scre en U Marijuana (THC) Screen Ethyl Alcohol RPR 12/06/20 12/06/20 12/06/20 12:20 12:20 12:00 WBC RBC Hgb Hct MCV MCH MCHC RDW Plt Count MPV Neut % (Auto) Lymph % (Auto) Clarke % (Auto) Eos % (Auto) Baso % (Auto) Neut # (Auto) Lymph # (Auto) Clarke # (Auto) Eos # (Auto) Baso # (Auto) Nucleated RBC % (a uto) Nucleated RBCs # D-Dimer 0.63 H Sodium Potassium Chloride Carbon Dioxide Anion Gap BUN Creatinine GFR Calculation Glucose Estimat Average Gl ucose Hemoglobin A1c Calculated Osmolal ity Calcium Phosphorus Magnesium Iron 51 L TIBC 258 % Saturation 19.7 L Unsat Iron Binding 207 Total Bilirubin AST ALT Alkaline Phosphata se Troponin T 120 Min lower [place] Delta Troponin T Troponin T Hi Sens 6Hr Troponin T Hi Sens 6Hr Delta NT-Pro-B Natriuret Pep 123 Total Protein Albumin Globulin Triglycerides Cholesterol LDL Cholesterol, C alc HDL Cholesterol LDL/HDL Ratio Cholesterol/HDL Ra alfredo Vitamin B12 Folate 15.6 Procalcitonin 0.11 TSH 2.44 Salicylates Urine Opiates Scre en Acetaminophen Ur Barbiturates Sc reen Ur Phencyclidine S crn Ur Amphetamines Sc reen U Benzodiazepines Scrn Urine Cocaine Scre en U Marijuana (THC) Screen Ethyl Alcohol RPR 12/06/20 12/06/20 12:00 12:00 WBC RBC Hgb Hct MCV MCH MCHC RDW Plt Count MPV Neut % (Auto) Lymph % (Auto) Clarke % (Auto) Eos % (Auto) Baso % (Auto) Neut # (Auto) Lymph # (Auto) Clarke # (Auto) Eos # (Auto) Baso # (Auto) Nucleated RBC % (a uto) Nucleated RBCs # D-Dimer Sodium Potassium Chloride Carbon Dioxide Anion Gap BUN Creatinine GFR Calculation Glucose Estimat Average Gl ucose Hemoglobin A1c Calculated Osmolal ity Calcium Phosphorus Magnesium Iron TIBC % Saturation Unsat Iron Binding Total Bilirubin AST ALT Alkaline Phosphata se Troponin T 120 Min lower [place] Delta Troponin T Troponin T Hi Sens 6Hr Troponin T Hi Sens 6Hr Delta NT-Pro-B Natriuret Pep Total Protein Albumin Globulin Triglycerides Cholesterol LDL Cholesterol, C alc HDL Cholesterol LDL/HDL Ratio Cholesterol/HDL Ra alfredo Vitamin B12 341 Folate Procalcitonin TSH Salicylates < 0.3 L Urine Opiates Scre en Positive H Acetaminophen < 5.0 L Ur Barbiturates Sc reen Negative Ur Phencyclidine S crn Negative Ur Amphetamines Sc reen Negative U Benzodiazepines Scrn Positive H Urine Cocaine Scre en Negative U Marijuana (THC) Screen Negative Ethyl Alcohol < 10 RPR Nonreactive Addt'l Data from Hospital Stay: Laboratory Results WBC 3.3 10^3/uL (4.0- 10.0) L 12/07/20 04:14 RBC 4.01 10^6/uL (4.1 -5.3) L 12/07/20 04:14 Hgb 12.4 g/dL (11.7-1 6.6) 12/07/20 04:14 Hct 39.1 % (42.0-52.0 ) L 12/07/20 04:14 MCV 97.5 fl (80-94) H 12/07/20 04:14 MCH 30.9 pg (28.0-34. 0) 12/07/20 04:14 MCHC 31.7 g/dL (30.0-3 6.0) 12/07/20 04:14 RDW 13.3 % (12.1-15.1 ) 12/07/20 04:14 Plt Count 128 10^3/cmm (130 -400) L 12/07/20 04:14 MPV 9.1 fL (7.4-10.4) 12/07/20 04:14 Neut % (Auto) 64.5 % 12/07/20 04:14 Lymph % (Auto) 21.4 % 12/07/20 04:14 Clarke % (Auto) 10.2 % 12/07/20 04:14 Eos % (Auto) 3.3 % 12/07/20 04:14 Baso % (Auto) 0.6 % 12/07/20 04:14 Neut # (Auto) 2.14 10^3/uL (1.8 -7.7) 12/07/20 04:14 Lymph # (Auto) 0.7 10^3/uL (0.8- 4.8) L 12/07/20 04:14 Clarke # (Auto) 0.3 10^3/uL (0.2- 0.9) 12/07/20 04:14 Eos # (Auto) 0.1 10^3/uL (0.0- 0.8) 12/07/20 04:14 Baso # (Auto) 0.0 10^3/uL (0.0- 0.1) 12/07/20 04:14 Nucleated RBC % (a uto) 0 % 12/07/20 04:14 Nucleated RBCs # 0.0 /100WBC 12/07/20 04:14 D-Dimer 0.63 ug/mIFEU (0- 0.59) H 12/06/20 12:20 Sodium 140 mmol/L (136-1 45) 12/07/20 04:14 Potassium 4.0 mmol/L (3.5-5 .1) 12/07/20 04:14 Chloride 108 mmol/L (98-10 7) H 12/07/20 04:14 Carbon Dioxide 23 mmol/L (22-29) 12/07/20 04:14 Anion Gap 13.0 (5-19) 12/07/20 04:14 BUN 13 mg/dL (8-23) 12/07/20 04:14 Creatinine 1.1 mg/dL (0.7-1. 2) 12/07/20 04:14 GFR Calculation Not Reportable 12/07/20 04:14 Glucose 130 mg/dL (65-115 ) H 12/07/20 04:14 Estimat Average Gl ucose 111 12/07/20 04:14 Hemoglobin A1c 5.5 % (4.0-6.0) 12/07/20 04:14 Calculated Osmolal ity 292 mOsm/kg (285- 295) 12/07/20 04:14 Calcium 9.3 mg/dL (8.5-10 .5) 12/07/20 04:14 Phosphorus 2.0 mg/dL (2.5-4. 5) L 12/07/20 04:14 Magnesium 1.2 mg/dL (1.7-2. 3) L 12/07/20 04:14 Iron 51 ug/dL (59-158) L 12/06/20 12:20 TIBC 258 mcg/dl 12/06/20 12:20 % Saturation 19.7 % (20-50) L 12/06/20 12:20 Unsat Iron Binding 207 ug/dL (112-34 7) 12/06/20 12:20 Total Bilirubin 0.4 mg/dL (0.15-1 .2) 12/07/20 04:14 AST 11 U/L (0-40) 12/07/20 04:14 ALT 11 U/L (0-41) 12/07/20 04:14 Alkaline Phosphata se 81 IU/L (40-130) 12/07/20 04:14 Troponin T Baselin e 13 ng/L (0-15) 12/06/20 12:00 Troponin T 120 Min lower [place] 12.18 ng/L (0-15) 12/06/20 14:35 Delta Troponin T -0.82 ABS# (0-10) L 12/06/20 14:35 Troponin T Hi Sens 6Hr 12.29 ng/L (0-15) 12/06/20 18:20 Troponin T Hi Sens 6Hr Delta -0.71 ng/L (0-12) L 12/06/20 18:20 NT-Pro-B Natriuret Pep 123 pg/mL (0-450) 12/06/20 12:20 Total Protein 6.3 g/dL (6.6-8.7 ) L 12/07/20 04:14 Albumin 3.6 g/dL (3.5-5.2 ) 12/07/20 04:14 Globulin 2.7 g/dL (1.3-4.6 ) 12/07/20 04:14 Triglycerides 80 mg/dL (0-150) 12/07/20 04:14 Cholesterol 127 mg/dL (0-200) 12/07/20 04:14 LDL Cholesterol, C alc 78 mg/dL (50-129) 12/07/20 04:14 HDL Cholesterol 33 mg/dL (60-100) L 12/07/20 04:14 LDL/HDL Ratio 2.36 RATIO (0.00- 3.22) 12/07/20 04:14 Cholesterol/HDL Ra alfredo 3.85 mg/dL (1.0-5 .00) 12/07/20 04:14 Lipase 32 U/L (13-60) 12/06/20 12:00 Vitamin B12 341 pg/mL (232-12 45) 12/06/20 12:00 Folate 15.6 ng/mL (4.5-3 2.2) 12/06/20 12:00 Procalcitonin 0.11 ng/mL (0-0.5 ) 12/06/20 12:20 TSH 2.44 uIU/mL (0.27 -4.20) 12/06/20 12:20 Urine Color Yellow (Yellow) 12/06/20 12:00 Urine Appearance Cloudy (CLEAR) 12/06/20 12:00 Urine pH 5 (5-7) 12/06/20 12:00 Ur Specific Gravit y 1.020 (1.005-1.0 30) 12/06/20 12:00 Urine Protein Trace (Negative) 12/06/20 12:00 Urine Glucose (UA) Norm (Normal) 12/06/20 12:00 Urine Ketones Negative (Negati ve) 12/06/20 12:00 Urine Blood Neg (Negative) 12/06/20 12:00 Urine Nitrate Negative (Negati ve) 12/06/20 12:00 Urine Bilirubin Neg (Negative) 12/06/20 12:00 Urine Urobilinogen Norm mg/dL (Negat curt) 12/06/20 12:00 Ur Leukocyte Giselle ase 2+ (Negative) H 12/06/20 12:00 Urine RBC None /hpf (0-2) 12/06/20 12:00 Urine WBC >100 /hpf (0-5) H 12/06/20 12:00 Ur Squamous Epith Cells 0-4 /hpf (0-5) H 12/06/20 12:00 Amorphous Sediment Not Reportable 12/06/20 12:00 Urine Bacteria 1+ /hpf (NONE) H 12/06/20 12:00 Salicylates < 0.3 mg/dL (3-10 ) L 12/06/20 12:00 Urine Opiates Scre en Positive ng/mL (N egative) H 12/06/20 12:00 Acetaminophen < 5.0 ug/mL (10-3 0) L 12/06/20 12:00 Ur Barbiturates Sc reen Negative ng/mL (N egative) 12/06/20 12:00 Ur Phencyclidine S crn Negative ng/mL (N egative) 12/06/20 12:00 Ur Amphetamines Sc reen Negative ng/mL (N egative) 12/06/20 12:00 U Benzodiazepines Scrn Positive ng/mL (N egative) H 12/06/20 12:00 Urine Cocaine Scre en Negative ng/mL (N egative) 12/06/20 12:00 U Marijuana (THC) Screen Negative ng/mL (N egative) 12/06/20 12:00 Ethyl Alcohol < 10 mg/dL (0-10) 12/06/20 12:00 RPR Nonreactive (Non reactive) 12/06/20 12:00 Impressions Abdomen/Pelvis CT 12/06/20 11:12 IMPRESSION: 1. Prior cholecystectomy. Mild hepatomegaly. 2. Small esophageal hiatal hernia with fluid distended stomach with food products and air-fluid levels. 3. No evidence of high-grade small or large bowel obstruction. 4. Bilateral renal cortical atrophy. 5. Normal caliber abdominal aorta. 6. Sigmoid diverticulosis. No evidence of acute diverticulitis. 7. Prostate enlargement with evidence of mild bladder outlet obstruction. Prostate measures 4.1 CM. Recommend correlation PSA. 8. Moderate to severe central canal stenosis L2-3 with disc osteophyte complex slightly progressed compared to 2017. Head CT 12/06/20 11:57 IMPRESSION: No acute intracranial abnormality. Head/Neck CTA 12/06/20 11:57 IMPRESSION: Normal carotid circulations. Normal right anterior inferior cerebellar artery originating from the right vertebral artery is not identified, however, branches of the more distal right anterior inferior cerebellar artery are visualized, presumably from aberrant origin or collaterals. Unlikely this is the result of an acute occlusion, clinical correlation to be made. Microbiology 12/06/20 17:14 Nose MRSA Culture - Final 12/06/20 12:00 Urine,Clean Catch Urine Culture - Preliminary 12/06/20 12:00 Urine,Voided Legionella Urinary Antigen - Final 12/06/20 15:10 Blood Blood Culture - Preliminary SPECIMEN COLLECTED 12/06/20 14:55 Blood Blood Culture - Preliminary SPECIMEN COLLECTED Vitals: Last Vital Signs Temp 98.2 F 12/07/20 12:00 Pulse 62 12/07/20 12:00 Resp 16 12/07/20 12:00 BP 160/72 12/07/20 12:00 Pulse Ox 97 12/07/20 12:00 Discharge Plan Discharge Patient Disposition: Home Health Service Condition: Stable Prescriptions: New carvedilol 6.25 mg Tablet 6.25 mg PO BID 30 Days Qty: 60 RF: 0 tamsulosin 0.4 mg Capsule 0.4 mg PO DAILY 30 Days Qty: 30 RF: 0 ferrous gluconate 324 mg (37.5 mg iron) Tablet 324 mg PO BIDWM 30 Days Qty: 60 RF: 0 Augmentin 500-125 mg tablet 1 tab PO BID 5 Days Qty: 10 RF: 0 levofloxacin 500 mg tablet 500 mg PO Q24H 5 Days Qty: 5 RF: 0 Continued mirtazapine 15 mg tablet 15 mg PO DAILY RF: 0 Eliquis 5 mg tablet 5 mg PO BID RF: 0 Hold Instructions: Resume on 03/25/19. hydrocodone-acetaminophen [Piru] 7.5-325 mg tablet 1 tab PO BID PRN (Reason: Pain) RF: 0 Xanax 1 mg tablet 1 mg PO BID PRN (Reason: anxiety) Qty: 60 RF: 5 methenamine hippurate 1 gram tablet 1 g PO BID Qty: 60 RF: 12 cetirizine [Zyrtec] 10 mg tablet 10 mg PO DAILY PRN (Reason: allergy symptoms) RF: 0 omeprazole 20 mg capsule,delayed release(DR/EC) 20 mg PO DAILY RF: 0 lisinopril 10 mg tablet 10 mg PO DAILY RF: 0 fluvoxamine 50 mg Tablet 50 mg PO BID RF: 0 Changed amlodipine 5 mg tablet 10 mg PO DAILY Qty: 0 RF: 0 Discontinued metoprolol tartrate 25 mg tablet 50 mg PO BID RF: 0 ascorbic acid (vitamin C) 1,000 mg tablet 1 gm PO BID RF: 0 Discharge Orders: Discharge Order (Routine); Ordered 12/07/20 Ordered By: Hipolito Jarrell Referrals: Mee Natarajan MD [Primary Care Provider] - 1-3 days Discharge Diet: Cardiac Discharge Activity: Resume usual activity Patient Instructions: Opioid Safety Activity Restrictions/Additional Instructions: Some medication have been changed. Amlodipine has been increased to 10 mg daily. Metoprolol has been changed to carvedilol 6.25 mg twice daily. Please take Augmentin and Levaquin for next 5 days. If you have any rash stop taking Augmentin. Please follow-up with your primary care provider within next 1 week to review urine culture results. Please check blood pressure twice daily at home and maintain a blood pressure diary for further adjustment of antihypertensives. Discharge Attestations Time Spent in Discharge Care*: greater than 30 min Specific Discharge Activities: educating patient, educating and/or supporting family/caregiver, discussing with pcp/other providers, discussing with bilingual patient support caseworker/social workers/dc planners, documenting/other paperwork and evaluating patient/reviewing data Status at Discharge: Cognitive status at discharge: mildly impaired cognition, Behavioral status at discharge: cooperative, Functional status at discharge: independent ambulation Overall status at discharge: patient is back to baseline Quality Metrics Clinical Quality Measures During this hospital stay, did patient experience: None Coding Level of Care Code Acute Chg FW DC note Diagnoses Acute UTI N39.0 Facial droop R29.810 Confusion R41.0 Urethral stricture N99.110 Urethral stricture type: post-procedural Urethral stricture sex-location: male urethra-meatus Squamous cell carcinoma of penis C60.9 Chronic kidney disease, stage III (moderate) N18.30
--- NOTE | 2020-12-11 12:29 | PC.SOCIAL ---
discharge follow up call made, spoke with patient. patient doesn't wish to discuss medications or discharge instructions. he c/o headache and states he will take care of it all tomorrow when he follows up with Dr. Natarajan.
== END 2020-12-07 14:50 | disposition home or self-care (01) | DRG 689 ==
LOC: ER 15:54 → MEDSURG 17:17
PROVIDERS: Admitting Provider Student in an Organized Health Care Education/Training Program; Emergency Provider Emergency Medicine; PCP Internal Medicine; Visit Provider Student in an Organized Health Care Education/Training Program
DX: N39.0 Urinary tract infection, site not specified (principal); G93.41 Metabolic encephalopathy; C60.9 Malignant neoplasm of penis, unspecified; R29.810 Facial weakness; N99.110 Postprocedural urethral stricture, male, meatal; Y83.9 Surgical procedure, unspecified as the cause of abnormal reaction of the patient, or of later complication, without mention of misadventure at the time of the procedure; K21.9 Gastro-esophageal reflux disease without esophagitis; I12.9 Hypertensive chronic kidney disease with stage 1 through stage 4 chronic kidney disease, or unspecified chronic kidney disease; N18.30 Chronic kidney disease, stage 3 unspecified; R00.1 Bradycardia, unspecified; F41.1 Generalized anxiety disorder; R47.1 Dysarthria and anarthria; F32.A Depression, unspecified; Z79.01 Long term (current) use of anticoagulants; Z86.16 Personal history of COVID-19; Z79.899 Other long term (current) drug therapy
CPT/HCPCS: 36415; 70450; 70496; 70498; 74177; 80053; 80061; 80306; 80307; 81001; 82607; 82746; 83036; 83540; 83550; 83690; 83735; 83880; 84100; 84145; 84443; 84484; 85025; 85378; 86592; 87040; 87086; 87449; 87641; 93005; 93306; 96365; 96367; 96375; 97116; 97161; 97165; 99285; G0378; J0696; J3370; J3490; J7030; J7050; Q9967

== ENCOUNTER 2021-01-08 15:20 | Outpatient (CLI) | payer MEDICARE, MEDICAID, SELFPAY ==
--- NOTE | 2021-01-08 15:31 | XR_ITS ---
WS: [id number] RIGHT HAND: 3 VIEW(S) TECHNIQUE: PA, oblique and lateral. HISTORY: RT. HAND PAIN, RIGHT fifth finger is edema. COMPARISON: None available. No acute fracture or dislocation. Diffuse interphalangeal joint space narrowing. Radiopaque foreign body in the soft tissues adjacent t o the radial third PIP joint. Well-circumscribed osseous density along the dorsal surface of the dist al phalanx fifth finger. Fracture is displaced from the donor site by 1.5 mm. The donor site does rafi ear to be the distal phalanx. This was not present on 12/13/2017. XR/XR hand RT min 3V* [id number] IMPRESSION: 1. Small age-indeterminate avulsion fracture from the dorsal surface distal ph alanx fifth finger. Slight retraction of the avulsion fracture from the donor s ite. New since 12/13/2017. This could represent an acute injury. 2. Otherwise advanced interphalangeal joint space arthritis.
== END 2021-01-08 15:21 | disposition home or self-care (01) ==
LOC: RAD 15:25
PROVIDERS: PCP Internal Medicine; Visit Provider Internal Medicine
DX: M79.641 Pain in right hand (principal); R60.0 Localized edema
CPT/HCPCS: 73130

== ENCOUNTER 2021-03-27 15:30 | Outpatient (CLI) | payer MEDICARE, MEDICAID, SELFPAY ==
--- NOTE | 2021-03-27 15:52 | XRR_ITS ---
PROCEDURE INFORMATION: Exam: XR Thoracic Spine Exam date and time: 03/27/2021 3:52 PM Age: 75 years old Clinical indication: Pain in thoracic spine; Additional info: Pain thoracic TECHNIQUE: Imaging protocol: XR of the thoracic spine. Views: 3 views. COMPARISON: CR XR chest 1V portable [id number] 10/04/2020 11:47 AM FINDINGS: Bones/joints: Mild to moderate disc space narrowing and productive degenerative endplate changes throughout the thoracic spine. Soft tissues: Unremarkable. XR/XR thoracic spine 3V* [id number] IMPRESSION: Mild to moderate disc space narrowing and productive degenerative endplate changes throughout the thoracic spine.
== END 2021-03-27 15:31 | disposition home or self-care (01) ==
PROVIDERS: PCP Internal Medicine; Visit Provider Nurse Practitioner Family
DX: M54.6 Pain in thoracic spine (principal); N39.0 Urinary tract infection, site not specified
CPT/HCPCS: 72072; 81003

== ENCOUNTER 2021-04-01 12:24 | Emergency (ER) | payer MEDICARE, MEDICAID, SELFPAY ==
[2021-04-01 12:46] VITALS: BP 166/77; PULSE 67; RESP 16; TEMP 36; O2SAT 97
[2021-04-01 13:00] VITALS: BP 134/77; PULSE 64; RESP 16; O2SAT 97
--- NOTE | 2021-04-01 13:18 | XR_ITS ---
WS: [id number] XR knee RT 3V* [id number] REASON FOR EXAM: fall/pain FINDINGS: No fracture or focal bone lesion. There is significant narrowing of the medial, lateral, and patellofemoral joint spaces. There is subc hondral sclerosis and large marginal osteophytes in the medial, lateral, and patellofemoral compartm ents. There are multiple loose bodies. XR/XR knee RT 3V* [id number] IMPRESSION: Severe osteoarthritis with no acute abnormality.
--- NOTE | 2021-04-01 13:20 | CT_ITS ---
WS: [id number] CT HEAD TECHNIQUE: Noncontrast CT of the head obtained from the skullbase to the vertex. CLINICAL INFORMATION: dizziness x 6d; fall/struck head COMPARISON: December 06, 2020 DLP: 872.[address] scans at [facility] use at least one of these dose optimization techniques: automated e xposure control; mA and/or kV adjustment per patient size (includes targeted exams where dose is matc hed to clinical indication); or iterative reconstruction. FINDINGS: No evidence of intracranial hemorrhage or mass effect. Ventricular system and basal cisterns are mai nt. Mild small vessel changes with moderate parenchymal volume loss. No extra-axial fluid collections . No evidence of mass or mass effect. Normal marquez-white differentiation. Paranasal sinuses and mastoid air cells are well aerated. .Normal visualized soft tissues. CT/CT head wo con* [id number] IMPRESSION: 1. No evidence of intracranial hemorrhage or mass effect. 2. Mild small vessel changes with moderate parenchymal volume loss. 3. No acute intracranial findings.
--- NOTE | 2021-04-01 13:20 | ECG_ITS ---
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 Measurements Intervals [place] Rate: 52 P: 35 OK: 151 QRS: -1 QRSD: 90 T: 38 QT: 389 QTc: 362 Interpretive Statements SINUS BRADYCARDIA Compared to ECG 12/06/2020 18:12:42 Sinus rhythm no longer present Myocardial infarct finding no longer present Electronically Signed On 04-01-2021 17:11:11 LAB RN by Carolyn Joe M.D. [id number]
--- NOTE | 2021-04-01 13:20 | XR_ITS ---
WS: [id number] XR chest 1V portable [id number] REASON FOR EXAM: dizziness FINDINGS: The chest is unchanged compared to previous examination of 09/17/2020. Moderate ectasia and tortuosity of the thoracic aorta. Prominence of the shana ascending aorta. The heart is at the upper limits of normal in size. There is calcified granulomatous disease in both hemithoraces. No acute pulmonary parenchymal or pleural abnormality is identified. Moderate degenerative spondylosis in the mid and lower thoracic spine. Osteoarthritis in both shoulde rs. XR/XR chest 1V portable [id number] IMPRESSION: No acute abnormality.
--- NOTE | 2021-04-01 13:20 | XR_ITS ---
WS: [id number] XR tibia fibula RT 2V [id number] REASON FOR EXAM: fall, pain FINDINGS: Severe osteoarthritis in the right knee and moderate osteoarthritis in the right ankle. No acute fracture of the tibia or fibula. No focal abnormality of the tibia or fibula. No soft tissue abnormality. XR/XR tibia fibula RT 2V [id number] IMPRESSION: No acute abnormality.
--- NOTE | 2021-04-01 13:21 | ED_ITS ---
Documented by User: LYNNE Nagy 04/01/21 16:53 HPI - Dizziness General: Chief Complaint: Fall Stated Complaint: Fall, extreme weakness Time Seen by Provider: 04/01/21 12:57 Source: patient Mode of arrival: ambulatory Limitations: no limitations History of Present Illness: HPI Narrative: Patient is a 75-year-old male who presents to ED today with a complaint of dizziness over the past 6 days and evaluation for falls related to the dizziness. Patient states dizziness is intermittent and does not seem to be brought on by exertion or positional changes. He states dizziness lasts only for a few seconds and then subsides on its own. In between episodes he is completely asymptomatic. He states 2 days ago he became dizzy and fell and struck/twisted his right knee and lower leg. He complains of pain here. He has been ambulatory on the extremity. He states today he was at his PCPs office when he became dizzy and fell and struck his head on a window. No LOC. Patient states he is on anticoagulation. He is not having any neck or back pain. Denies any chest pain, palpitations, shortness of breath. He is not having any visual changes. No headache. MD elicited complaint: dizziness Onset (ago): day(s) Timing: episodic Severity: moderate Description: sense of movement and off-balance History of similar symptoms: Yes Exacerbating factors: nothing Relieving factors: nothing Associated symptoms: Denies chest pain, chills, headache(s), malaise, nausea, nasal congestion, palpitations, syncope or vomiting Associated neuro symptoms: Deny numbness in extremities Stroke scale total: 0 Review of Systems Const: Denies: fever(s), chills, body aches, fatigue or malaise Eyes: Denies: change in vision, blurry vision, photophobia, floaters or seeing flashes ENMT: Denies: throat pain, odynophagia, nasal discharge or nasal congestion Card: Denies: chest pain, palpitations, irregular heart rhythm, lightheadedness, syncope or dyspnea on exertion Resp: Denies: dyspnea, productive cough or pain on inspiration GI: Denies: abdominal pain, nausea, vomiting, heartburn or diarrhea : Denies: difficulty urinating or dysuria Musc: Reports: extremity pain (R lower leg) and joint pain (R knee); Denies: neck pain, back pain, joint redness or joint warmth Skin/Breast: Denies: rash Neuro: Reports: frequent falls and dizziness; Denies: headache(s), numbness in extremities, weakness in extremities, sensory changes, lack of coordination, difficulty walking, behavioral changes, Slurred speech present or difficulty communicating thoughts PFS ED 2 PFSH: Medical History Anxiety Arthritis of right acromioclavicular joint Bloody stool Change in bowel habit Chronic kidney disease, stage III (moderate) Depression Facial droop GENESIS (generalized anxiety disorder) GERD (gastroesophageal reflux disease) Hypertension Melena Postprocedural urethral stricture Recurrent UTI Sprain of right shoulder Squamous cell carcinoma of penis Urethral stricture Surgical History History of knee surgery History of laparoscopic cholecystectomy Family History Mother , in her 80's Stroke Father , in his 60's Alcoholic Denies family history of Anesthesia complication Bleeding disorder Social History Smoking and tobacco status: never smoked Second hand smoke exposure: No Alcohol intake: never Desire information about alcohol rehabilitation?: No Adopted: No Caregiver/support person: Yes Lives independently: Yes Household members: significant other Housing: House Marital status: / Highest education level completed: High School Graduate service: No Current occupational status: retired Current occupational exposures/hazards: No Pets and animals: No History of recent travel: No Sexually active: No Current gender identity: Male Tri/Yazdanism: Amish Special tri needs: No Agree to transfusion: No Financial difficulty paying for basics: Decline to Answer Physical Exam Const: COMMON NORMALS: no acute distress, patient oriented x3, no limitations, alert and well nourished GENERAL APPEARANCE: cooperative NUTRITIONAL APPEARANCE: overweight ORIENTATION/CONSCIOUSNESS: Yes awake, Yes oriented to person and Yes oriented to time HENMT: COMMON NORMALS: normocephalic, atraumatic (apart from small abrasion to R frontal scalp), TM's normal bilaterally and Normal external nose present HEAD & SCALP: normocephalic and atraumatic (apart from small abrasion to R frontal scalp) FACE & SINUS: normal facial exam NOSE: Normal external nose present TYMPANIC MEMBRANE: TM's normal bilaterally Eye: COMMON NORMALS: Equal, round and reactive pupils present and EOMs intact bilaterally GENERAL EYE: appearance normal, both eyes and all related structures and normal light reflex ALIGNMENT: Yes alignment normal PUPIL: Yes Equal, round and reactive pupils present DIRECT OPHTHALMOSCOPY: Yes normal light reflex Neck/C-Spine: COMMON NORMALS: full ROM, no lymphadenopathy and no meningeal signs Resp: COMMON NORMALS: normal respiratory effort and clear to auscultation bilaterally AUSCULTATION: clear to auscultation bilaterally Cardio: COMMON NORMALS: regular rate and regular rhythm RATE: regular rate RHYTHM: regular rhythm Back/Pelvis: COMMON NORMALS: thoracic and lumbar spine normal to inspection, no thoracic nor lumbar tenderness and thoraco-lumbar ROM normal Extremity: GENERAL: Yes normal exam except as noted RIGHT LOWER EXTREMITY: Yes knee joint (mild swelling/tenderness anteriorly) Right knee: Yes ROM (normal) and Yes neurovascular exam (normal) and Yes lower leg (TTP anterior/lateral tib/fib; no swelling) Right lower leg: Yes neurovascular exam (normal) Neuro: TANIA COMA SCALE: document GCS findings [place] coma scale eye opening: Spontaneous Tania coma scale verbal response: Orientated Tania coma scale motor response: Obey commands [place] coma scale total score: 15 COMMON NORMALS: patient oriented x3, CN's II-XII intact bilaterally, moves all extremities, no focal motor deficits and no sensory deficits noted SENSORIUM/ORIENTATION: Yes alert, Yes oriented to person and Yes oriented to time MENINGEAL SIGNS: Yes no meningeal signs Skin: TRAUMA: abrasion (small scalp abrasion) Course Vital Signs: Vital signs: Vital Signs Temperature 96.8 F L 04/01/21 12:46 Pulse Rate 72 04/01/21 16:26 Respiratory Rate 16 04/01/21 13:00 Blood Pressure 122/73 04/01/21 15:48 Pulse Oximetry 97 04/01/21 13:00 [facility] - Dizziness Medical Decision Making Patient here for dizziness over the past 6 days. He reports dizziness is episodic lasting only for a few seconds. Neuro exam normal. Patient clinically appears in no acute distress-no episodes of dizziness while here. His vital signs are normal. Imaging of his right knee and tib-fib are negative. CT head negative. Blood work is unremarkable. EKG showing sinus bradycardia which is normal for patient. UA positive for UTI. Patient states he does have a history of recurrent UTIs. Will place on ciprofloxacin for this. Possibly this could be contributing to his dizziness? Orthostatics negative. He states he has an appointment with PCP soon and he will follow up with them if dizziness is persisting. Lab Data : 04/01/21 14:40 04/01/21 14:40 Radiology Impressions Knee X-Ray 04/01/21 13:18 IMPRESSION: Severe osteoarthritis with no acute abnormality. Chest X-Ray 04/01/21 13:20 IMPRESSION: No acute abnormality. Head CT 04/01/21 13:20 IMPRESSION: 1. No evidence of intracranial hemorrhage or mass effect. 2. Mild small vessel changes with moderate parenchymal volume loss. 3. No acute intracranial findings. Tibia/Fibula X-Ray 04/01/21 13:20 IMPRESSION: No acute abnormality. Laboratory Results WBC 3.6 10^3/uL (4.0-10.0) L 04/01/21 14:40 RBC 4.24 10^6/uL (4.1-5.3) 04/01/21 14:40 Hgb 13.1 g/dL (11.7-16.6) 04/01/21 14:40 Hct 40.5 % (42.0-52.0) L 04/01/21 14:40 MCV 95.5 fl (80-94) H 04/01/21 14:40 MCH 30.9 pg (28.0-34.0) 04/01/21 14:40 MCHC 32.3 g/dL (30.0-36.0) 04/01/21 14:40 RDW 13.3 % (12.1-15.1) 04/01/21 14:40 Plt Count 178 10^3/cmm (130-400) 04/01/21 14:40 MPV 8.7 fL (7.4-10.4) 04/01/21 14:40 Neut % (Auto) 65.2 % 04/01/21 14:40 Lymph % (Auto) 21.5 % 04/01/21 14:40 [place] % (Auto) 11.0 % 04/01/21 14:40 Eos % (Auto) 1.4 % 04/01/21 14:40 Baso % (Auto) 0.6 % 04/01/21 14:40 Neut # (Auto) 2.36 10^3/uL (1.8-7.7) 04/01/21 14:40 Lymph # (Auto) 0.8 10^3/uL (0.8-4.8) 04/01/21 14:40 [place] # (Auto) 0.4 10^3/uL (0.2-0.9) 04/01/21 14:40 Eos # (Auto) 0.1 10^3/uL (0.0-0.8) 04/01/21 14:40 Baso # (Auto) 0.0 10^3/uL (0.0-0.1) 04/01/21 14:40 Nucleated RBC % (auto) 0 % 04/01/21 14:40 Nucleated RBCs # 0.0 /100WBC 04/01/21 14:40 Sodium 138 mmol/L (136-145) 04/01/21 14:40 Potassium 4.9 mmol/L (3.5-5.1) 04/01/21 14:40 Chloride 108 mmol/L (98-107) H 04/01/21 14:40 Carbon Dioxide 19 mmol/L (22-29) L 04/01/21 14:40 Anion Gap 15.9 (5-19) 04/01/21 14:40 BUN 33 mg/dL (8-23) H 04/01/21 14:40 Creatinine 1.3 mg/dL (0.7-1.2) H 04/01/21 14:40 GFR Calculation Not Reportable 04/01/21 14:40 Glucose 79 mg/dL (65-115) 04/01/21 14:40 Calculated Osmolality 292 mOsm/kg (285-295) 04/01/21 14:40 Calcium 9.3 mg/dL (8.5-10.5) 04/01/21 14:40 Total Bilirubin 0.4 mg/dL (0.15-1.2) 04/01/21 14:40 AST 20 U/L (0-40) 04/01/21 14:40 ALT 19 U/L (0-41) 04/01/21 14:40 Alkaline Phosphatase 107 IU/L (40-130) 04/01/21 14:40 Total Protein 6.5 g/dL (6.6-8.7) L 04/01/21 14:40 Albumin 4.2 g/dL (3.5-5.2) 04/01/21 14:40 Globulin 2.3 g/dL (1.3-4.6) 04/01/21 14:40 Urine Color Yellow (Yellow) 04/01/21 14:30 Urine Appearance Clear (CLEAR) 04/01/21 14:30 Urine pH 5 (5-7) 04/01/21 14:30 Ur Specific Vanduser 1.015 (1.005-1.030) 04/01/21 14:30 Urine Protein 1+ (Negative) H 04/01/21 14:30 Urine Glucose (UA) Norm (Normal) 04/01/21 14:30 Urine Ketones Negative (Negative) 04/01/21 14:30 Urine Blood Neg (Negative) 04/01/21 14:30 Urine Nitrate Positive (Negative) H 04/01/21 14:30 Urine Bilirubin Neg (Negative) 04/01/21 14:30 Urine Urobilinogen Neg mg/dL (Negative) 04/01/21 14:30 Ur Leukocyte Esterase 2+ (Negative) H 04/01/21 14:30 Urine RBC Rare /hpf (0-2) 04/01/21 14:30 Urine WBC >100 /hpf (0-5) H 04/01/21 14:30 Ur Squamous Epith Cells None /hpf (0-5) 04/01/21 14:30 Amorphous Sediment Not Reportable 04/01/21 14:30 Urine Bacteria 4+ /hpf (NONE) H 04/01/21 14:30 EKG Data EKG 1: EKG interpretation date: 04/01/21 EKG interpretation time: 14:55 Interpretation: Sinus bradycardia Rate [address] elevation or depression changes noted Discharge Plan Discharge Patient Disposition: Home Clinical Impression: Acute UTI, Dizziness, Acute pain of right knee Contusion of scalp Qualifiers: Encounter type: initial encounter Qualified Code(s): S00.03XA - Contusion of scalp, initial encounter Condition: Stable Prescriptions: New Cipro 500 mg tablet 500 mg PO Q12H Qty: 14 0RF No Action Eliquis 5 mg tablet 5 mg PO BID 0RF Hold Instructions: Resume on 03/25/19. mirtazapine 15 mg tablet 15 mg PO DAILY PRN0RF hydrocodone-acetaminophen [[place]] 7.5-325 mg tablet 1 tab PO BID PRN (Reason: Pain) 0RF Xanax 1 mg tablet 1 mg PO BID PRN (Reason: anxiety) Qty: 60 5RF ascorbic acid (vitamin C) 1,000 mg tablet 1 g PO BID 0RF methenamine hippurate 1 gram tablet 1 g PO BID Qty: 60 12RF Rx Instructions: Take 1000 mg of vitamin C with each dose of methenamine cetirizine [Zyrtec] 10 mg tablet 10 mg PO DAILY PRN (Reason: allergy symptoms) 0RF omeprazole 20 mg capsule,delayed release(DR/EC) 20 mg PO DAILY 0RF lisinopril 10 mg tablet 10 mg PO DAILY 0RF fluvoxamine 50 mg Tablet 50 mg PO BID 0RF amlodipine 5 mg tablet 10 mg PO DAILY Qty: 0 0RF Discharge Orders: Discharge ED (Routine); Ordered 04/01/21 Ordered By: Julienne Harrell Referrals: Mee Natarajan MD [Primary Care Provider] - Activity Restrictions/Additional Instructions: As we discussed please follow-up with your primary care provider for further evaluation of your dizziness. Your UA today was positive for a UTI. Please let your urologist Dr. Encinas know as you have been following closely with him. B egin your antibiotics immediately. Coding Level of Care Code ED Balance Engineer for Chg Fwd Exam Comprehensive Documented by User: Elvis Becker DO 04/02/21 08:59 HPI - Dizziness General: Chief Complaint: Fall Stated Complaint: Fall, extreme weakness Time Seen by Provider: 04/01/21 12:57 PFSH ED PFSH: Medical History Anxiety Arthritis of right acromioclavicular joint Bloody stool Change in bowel habit Chronic kidney disease, stage III (moderate) Depression Facial droop GENESIS (generalized anxiety disorder) GERD (gastroesophageal reflux disease) Hypertension Melena Postprocedural urethral stricture Recurrent UTI Sprain of right shoulder Squamous cell carcinoma of penis Urethral stricture Surgical History History of knee surgery History of laparoscopic cholecystectomy Family History Mother , in her 80's Stroke Father , in his 60's Alcoholic Denies family history of Anesthesia complication Bleeding disorder Social History Smoking and tobacco status: never smoked Second hand smoke exposure: No Alcohol intake: never Desire information about alcohol rehabilitation?: No Adopted: No Caregiver/support person: Yes Lives independently: Yes Household members: significant other Housing: House Marital status: / Highest education level completed: High School Graduate service: No Current occupational status: retired Current occupational exposures/hazards: No Pets and animals: No History of recent travel: No Sexually active: No Current gender identity: Male Tri/Yazdanism: Amish Special tri needs: No Agree to transfusion: No Financial difficulty paying for basics: Decline to Answer Physical Exam Neuro: TANIA COMA SCALE: document GCS findings [place] coma scale total score: 15 Course Vital Signs: Vital signs: Vital Signs Temperature 96.8 F L 04/01/21 12:46 Pulse Rate 72 04/01/21 16:26 Respiratory Rate 16 04/01/21 13:00 Blood Pressure 122/73 04/01/21 15:48 Pulse Oximetry 97 04/01/21 13:00 [facility] - Dizziness Medical Decision Making Patient here for dizziness over the past 6 days. He reports dizziness is episodic lasting only for a few seconds. Neuro exam normal. Patient clinically appears in no acute distress-no episodes of dizziness while here. His vital signs are normal. Imaging of his right knee and tib-fib are negative. CT head negative. Blood work is unremarkable. EKG showing sinus bradycardia which is normal for patient. UA positive for UTI. Patient states he does have a history of recurrent UTIs. Will place on ciprofloxacin for this. Possibly this could be contributing to his dizziness? Orthostatics negative. He states he has an appointment with PCP soon and he will follow up with them if dizziness is pe rsisting. Chart reviewed and patient discussed with midlevel. Agree with assessment and plan. Lab Data : 04/01/21 14:40 04/01/21 14:40 Radiology Impressions Knee X-Ray 04/01/21 13:18 IMPRESSION: Severe osteoarthritis with no acute abnormality. Chest X-Ray 04/01/21 13:20 IMPRESSION: No acute abnormality. Head CT 04/01/21 13:20 IMPRESSION: 1. No evidence of intracranial hemorrhage or mass effect. 2. Mild small vessel changes with moderate parenchymal volume loss. 3. No acute intracranial findings. Tibia/Fibula X-Ray 04/01/21 13:20 IMPRESSION: No acute abnormality. Laboratory Results WBC 3.6 10^3/uL (4.0-10.0) L 04/01/21 14:40 RBC 4.24 10^6/uL (4.1-5.3) 04/01/21 14:40 Hgb 13.1 g/dL (11.7-16.6) 04/01/21 14:40 Hct 40.5 % (42.0-52.0) L 04/01/21 14:40 MCV 95.5 fl (80-94) H 04/01/21 14:40 MCH 30.9 pg (28.0-34.0) 04/01/21 14:40 MCHC 32.3 g/dL (30.0-36.0) 04/01/21 14:40 RDW 13.3 % (12.1-15.1) 04/01/21 14:40 Plt Count 178 10^3/cmm (130-400) 04/01/21 14:40 MPV 8.7 fL (7.4-10.4) 04/01/21 14:40 Neut % (Auto) 65.2 % 04/01/21 14:40 Lymph % (Auto) 21.5 % 04/01/21 14:40 [place] % (Auto) 11.0 % 04/01/21 14:40 Eos % (Auto) 1.4 % 04/01/21 14:40 Baso % (Auto) 0.6 % 04/01/21 14:40 Neut # (Auto) 2.36 10^3/uL (1.8-7.7) 04/01/21 14:40 Lymph # (Auto) 0.8 10^3/uL (0.8-4.8) 04/01/21 14:40 [place] # (Auto) 0.4 10^3/uL (0.2-0.9) 04/01/21 14:40 Eos # (Auto) 0.1 10^3/uL (0.0-0.8) 04/01/21 14:40 Baso # (Auto) 0.0 10^3/uL (0.0-0.1) 04/01/21 14:40 Nucleated RBC % (auto) 0 % 04/01/21 14:40 Nucleated RBCs # 0.0 /100WBC 04/01/21 14:40 Sodium 138 mmol/L (136-145) 04/01/21 14:40 Potassium 4.9 mmol/L (3.5-5.1) 04/01/21 14:40 Chloride 108 mmol/L (98-107) H 04/01/21 14:40 Carbon Dioxide 19 mmol/L (22-29) L 04/01/21 14:40 Anion Gap 15.9 (5-19) 04/01/21 14:40 BUN 33 mg/dL (8-23) H 04/01/21 14:40 Creatinine 1.3 mg/dL (0.7-1.2) H 04/01/21 14:40 GFR Calculation Not Reportable 04/01/21 14:40 Glucose 79 mg/dL (65-115) 04/01/21 14:40 Calculated Osmolality 292 mOsm/kg (285-295) 04/01/21 14:40 Calcium 9.3 mg/dL (8.5-10.5) 04/01/21 14:40 Total Bilirubin 0.4 mg/dL (0.15-1.2) 04/01/21 14:40 AST 20 U/L (0-40) 04/01/21 14:40 ALT 19 U/L (0-41) 04/01/21 14:40 Alkaline Phosphatase 107 IU/L (40-130) 04/01/21 14:40 Total Protein 6.5 g/dL (6.6-8.7) L 04/01/21 14:40 Albumin 4.2 g/dL (3.5-5.2) 04/01/21 14:40 Globulin 2.3 g/dL (1.3-4.6) 04/01/21 14:40 Urine Color Yellow (Yellow) 04/01/21 14:30 Urine Appearance Clear (CLEAR) 04/01/21 14:30 Urine pH 5 (5-7) 04/01/21 14:30 Ur Specific Vanduser 1.015 (1.005-1.030) 04/01/21 14:30 Urine Protein 1+ (Negative) H 04/01/21 14:30 Urine Glucose (UA) Norm (Normal) 04/01/21 14:30 Urine Ketones Negative (Negative) 04/01/21 14:30 Urine Blood Neg (Negative) 04/01/21 14:30 Urine Nitrate Positive (Negative) H 04/01/21 14:30 Urine Bilirubin Neg (Negative) 04/01/21 14:30 Urine Urobilinogen Neg mg/dL (Negative) 04/01/21 14:30 Ur Leukocyte Esterase 2+ (Negative) H 04/01/21 14:30 Urine RBC Rare /hpf (0-2) 04/01/21 14:30 Urine WBC >100 /hpf (0-5) H 04/01/21 14:30 Ur Squamous Epith Cells None /hpf (0-5) 04/01/21 14:30 Amorphous Sediment Not Reportable 04/01/21 14:30 Urine Bacteria 4+ /hpf (NONE) H 04/01/21 14:30 Discharge Plan Discharge Patient Disposition: Home Clinical Impression: Acute UTI, Dizziness, Acute pain of right knee Contusion of scalp Qualifiers: Encounter type: initial encounter Qualified Code(s): S00.03XA - Contusion of scalp, initial encounter Condition: Stable Prescriptions: New Cipro 500 mg tablet 500 mg PO Q12H Qty: 14 0RF No Action Eliquis 5 mg tablet 5 mg PO BID 0RF Hold Instructions: Resume on 03/25/19. mirtazapine 15 mg tablet 15 mg PO DAILY PRN0RF hydrocodone-acetaminophen [[place]] 7.5-325 mg tablet 1 tab PO BID PRN (Reason: Pain) 0RF Xanax 1 mg tablet 1 mg PO BID PRN (Reason: anxiety) Qty: 60 5RF ascorbic acid (vitamin C) 1,000 mg tablet 1 g PO BID 0RF methenamine hippurate 1 gram tablet 1 g PO BID Qty: 60 12RF Rx Instructions: Take 1000 mg of vitamin C with each dose of methenamine cetirizine [Zyrtec] 10 mg tablet 10 mg PO DAILY PRN (Reason: allergy symptoms) 0RF omeprazole 20 mg capsule,delayed release(DR/EC) 20 mg PO DAILY 0RF lisinopril 10 mg tablet 10 mg PO DAILY 0RF fluvoxamine 50 mg Tablet 50 mg PO BID 0RF amlodipine 5 mg tablet 10 mg PO DAILY Qty: 0 0RF Discharge Orders: Discharge ED (Routine); Ordered 04/01/21 Ordered By: Julienne Harrell Referrals: Mee Natarajan MD [Primary Care Provider] - Activity Restrictions/Additional Instructions: As we discussed please follow-up with your primary care provider for further evaluation of your dizziness. Your UA today was positive for a UTI. Please let your urologist Dr. Encinas know as you have been following closely with him. Begin your antibiotics immediately. Coding Level of Care Code ED Balance Engineer for [place] Fwd Exam Comprehensive
[2021-04-01 15:18] LABS: Basophils % 0.6 %; Eosinophils # 0.1 10^3/uL (0.0-0.8); Eosinophils % 1.4 %; Hematocrit 40.5 % (42.0-52.0); Hemoglobin 13.1 g/dL (11.7-16.6); Lymphocytes # 0.8 10^3/uL (0.8-4.8); Lymphocytes % 21.5 %; Mean Corpuscular HGB Conc 32.3 g/dL (30.0-36.0); Mean Corpuscular Hemoglobin 30.9 pg (28.0-34.0); Mean Corpuscular Volume 95.5 fl (80-94); Mean Platelet Volume 8.7 fL (7.4-10.4); Monocytes # 0.4 10^3/uL (0.2-0.9); Neutrophils # 2.36 10^3/uL (1.8-7.7); Neutrophils % 65.2 %; Nucleated Red Blood Cells % 0 %; Platelet Count 178 10^3/cmm (130-400); Red Blood Count 4.24 10^6/uL (4.1-5.3); Red Cell Distribution Width 13.3 % (12.1-15.1); White Blood Count 3.6 10^3/uL (4.0-10.0)
[2021-04-01 15:40] LABS: Alanine Aminotransferase 19 U/L (0-41); Albumin Level 4.2 g/dL (3.5-5.2); Alkaline Phosphatase 107 IU/L (40-130); Aspartate Amino Transferase 20 U/L (0-40); Blood Urea Nitrogen 33 mg/dL (8-23); Calcium 9.3 mg/dL (8.5-10.5); Carbon Dioxide 19 mmol/L (22-29); Chloride 108 mmol/L (98-107); Globulin 2.3 g/dL (1.3-4.6); Glucose 79 mg/dL (65-115); Osmolality Calculated 292 mOsm/kg (285-295); Sodium 138 mmol/L (136-145); Total Bilirubin 0.4 mg/dL (0.15-1.2); Total Protein 6.5 g/dL (6.6-8.7)
[2021-04-01 15:43] LABS: Anion Gap 15.9 (5-19); Potassium 4.9 mmol/L (3.5-5.1)
[2021-04-01 15:48] VITALS: BP 122/73; PULSE 124; PULSE 135
[2021-04-01 16:08] LABS: Add Urine Microscopic? YES; Bilirubin Urine Neg (Negative); Blood Urine Neg (Negative); Glucose Urine UA Norm (Normal); Ketones Urine Negative (Negative); Leukocyte Esterase Urine 2+ (Negative); Nitrate Urine Positive (Negative); Protein Urine 1+ (Negative); Specific Gravity, Urine 1.015 (1.005-1.030); Urine Appearance Clear (CLEAR); Urine Color Yellow (Yellow); Urobilinogen Urine Neg (Negative); pH Urine 5 (5-7)
[2021-04-01 16:09] LABS: Add Urine Culture? Yes; Bacteria Urine 4+ /hpf; RBC Urine RARE /hpf (0-2); WBC Urine >100 /hpf (0-5)
--- NOTE | 2021-04-01 16:23 | PC.NURSE ---
HR of 135 and 124 were charted incorrectly
[2021-04-01 16:26] VITALS: PULSE 72
== END 2021-04-01 16:37 | disposition home or self-care (01) ==
PROVIDERS: Emergency Provider Physician Assistant; PCP Internal Medicine
DX: R42 Dizziness and giddiness (principal); S00.03XA Contusion of scalp, initial encounter; N39.0 Urinary tract infection, site not specified; M25.561 Pain in right knee; Z79.01 Long term (current) use of anticoagulants; I12.9 Hypertensive chronic kidney disease with stage 1 through stage 4 chronic kidney disease, or unspecified chronic kidney disease; N18.30 Chronic kidney disease, stage 3 unspecified; W19.XXXA Unspecified fall, initial encounter
CPT/HCPCS: 70450; 71045; 73562; 73590; 80053; 81001; 85025; 87077; 87086; 87186; 93005; 99283

== ENCOUNTER → 2021-04-22 10:27 | Outpatient (BNVA) | payer MEDICARE, MEDICAID, SELFPAY | PROVIDERS: PCP Internal Medicine; Referring Provider Nurse Practitioner Family; Visit Provider Orthopaedic Surgery | DX: M17.11 Unilateral primary osteoarthritis, right knee (principal) | CPT/HCPCS: 73560; 73565 ==

== ENCOUNTER 2021-05-06 13:28 | Emergency (ER) | payer MEDICARE, MEDICAID, SELFPAY ==
[2021-05-06 13:45] VITALS: BP 166/80; PULSE 50; RESP 17; TEMP 36.3; O2SAT 96; BMI 31.7
[2021-05-06 13:56] VITALS: BP 166/80; PULSE 58; RESP 18; O2SAT 98
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
== END 2021-05-06 15:31 | disposition home or self-care (01) ==
PROVIDERS: Emergency Provider Physician Assistant; PCP Internal Medicine
DX: S13.4XXA Sprain of ligaments of cervical spine, initial encounter (principal); Z79.01 Long term (current) use of anticoagulants; I12.9 Hypertensive chronic kidney disease with stage 1 through stage 4 chronic kidney disease, or unspecified chronic kidney disease; N18.30 Chronic kidney disease, stage 3 unspecified; V89.2XXA Person injured in unspecified motor-vehicle accident, traffic, initial encounter
CPT/HCPCS: 70450; 72125; 72220; 99282

== ENCOUNTER → 2021-05-12 13:48 | Outpatient (BNVA) | payer MEDICARE, MEDICAID, SELFPAY | PROVIDERS: PCP Internal Medicine; Visit Provider Nurse Practitioner Family | DX: N39.0 Urinary tract infection, site not specified (principal) | CPT/HCPCS: 81003 ==

== ENCOUNTER 2021-05-19 15:53 | Emergency (ER) | payer MEDICARE, MEDICAID, SELFPAY ==
[2021-05-19 16:30] VITALS: BMI 37.1
[2021-05-19 16:32] VITALS: BP 137/64; PULSE 32; RESP 16; TEMP 36.8; O2SAT 96
--- NOTE | 2021-05-19 16:38 | XRR_ITS ---
PROCEDURE INFORMATION: Exam: XR Chest Exam date and time: 05/19/2021 3:44 PM Age: 75 years old Clinical indication: Pain; Angina pectoris; Additional info: Chest pain TECHNIQUE: Imaging protocol: XR of the chest. Views: 1 view. COMPARISON: CR XR chest 1V portable [id number] 04/01/2021 1:40 PM FINDINGS: Lungs: Unremarkable. No consolidation. Pleural spaces: Unremarkable. No pleural effusion. No pneumothorax. Heart/Mediastinum: Unremarkable. No cardiomegaly. Bones/joints: Mild thoracic spondylosis. XR/XR chest 1V portable [id number] IMPRESSION: No acute findings.
--- NOTE | 2021-05-19 16:39 | ECG_ITS ---
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 Measurements Intervals [place] Rate: 61 P: 39 AR: 145 QRS: 1 QRSD: 85 T: 55 QT: 393 QTc: 396 Interpretive Statements SINUS RHYTHM WITH FREQUENT SUPRAVENTRICULAR PREMATURE COMPLEXES ABNORMAL RHYTHM ECG Compared to ECG 04/01/2021 14:55:30 Sinus bradycardia no longer present Electronically Signed On 05-19-2021 20:26:55 CDT by Earle Nielsen M.D. [id number]
[2021-05-19 16:49] LABS: Basophils % 0.2 %; Eosinophils # 0.1 10^3/uL (0.0-0.8); Eosinophils % 1.3 %; Hematocrit 49.7 % (42.0-52.0); Lymphocytes # 1.2 10^3/uL (0.8-4.8); Lymphocytes % 25.7 %; Mean Corpuscular HGB Conc 32.2 g/dL (30.0-36.0); Mean Corpuscular Hemoglobin 31.4 pg (28.0-34.0); Mean Corpuscular Volume 97.6 fl (80-94); Monocytes # 0.3 10^3/uL (0.2-0.9); Monocytes % 6.1 %; Neutrophils # 3.19 10^3/uL (1.8-7.7); Neutrophils % 66.5 %; Nucleated Red Blood Cells % 0 %; Platelet Count 163 10^3/cmm (130-400); Red Blood Count 5.09 10^6/uL (4.1-5.3); Red Cell Distribution Width 13.2 % (12.1-15.1); White Blood Count 4.8 10^3/uL (4.0-10.0)
--- NOTE | 2021-05-19 16:49 | PC.PHAR ---
pt unable to verify medications-medications entered are what the pharmacy states they have filled recently-
--- NOTE | 2021-05-19 16:50 | ED_ITS ---
Documented by User: Elvis Becker DO 05/20/21 08:05 HPI - Chest Pain General: Chief Complaint: Chest Pain Stated Complaint: ALTERED MENTAL STATUS Time Seen by Provider: 05/19/21 16:00 Source: patient Mode of arrival: ambulatory History of Present Illness: 75-year-old male presents to the emergency room with EMS with his son. Complaint of altered mental status. Last couple of days his does not seem to be as selfies had difficulty with driving. No falls he denies chest pain or abdominal pain does have a little bit of right flank pain patient self caths at home and evidently was having difficulty getting the catheter placed. Was also still complaint of chest pain that began around noon today but he denies any of that and states he is not having any pain now. Onset (ago): hour(s) Timing of current episode: episodic Severity: mild Quality: aching Relieving factors: nothing Exacerbating factors: nothing Associated symptoms: Deny abdominal pain, diaphoresis, dyspnea, fever(s), leg edema, nausea, palpitations, sense of impending doom, syncope or vomiting Treatment prior to arrival: none Review of Systems Const: Denies: fever(s) or diaphoresis ENMT: Denies: throat pain, ear or mastoid pain, nasal discharge or nasal congestion Card: Denies: palpitations or syncope Resp: Denies: dyspnea GI: Denies: abdominal pain, nausea or vomiting : Denies: flank pain, dysuria, urinary frequency or urinary urgency Skin/Breast: Denies: rash or pruritus PFSH ED PFSH: Medical History Anxiety Arthritis of right acromioclavicular joint Bloody stool Change in bowel habit Chronic kidney disease, stage III (moderate) Depression Facial droop GENESIS (generalized anxiety disorder) GERD (gastroesophageal reflux disease) Hypertension Melena Postprocedural urethral stricture Recurrent UTI Sprain of right shoulder Squamous cell carcinoma of penis Urethral stricture Surgical History History of knee surgery History of laparoscopic cholecystectomy Family History Mother , in her 80's Stroke Father , in his 60's Alcoholic Denies family history of Anesthesia complication Bleeding disorder Social History Smoking and tobacco status: never smoked Second hand smoke exposure: No Alcohol intake: never Desire information about alcohol rehabilitation?: No Adopted: No Caregiver/support person: Yes Lives independently: Yes Household members: significant other Housing: House Marital status: / Highest education level completed: High School Graduate service: No Current occupational status: retired Current occupational exposures/hazards: No Pets and animals: No History of recent travel: No Sexually active: No Current gender identity: Male Tri/Nondenominational: Evangelical Special tri needs: No Agree to transfusion: No Financial difficulty paying for basics: Decline to Answer Physical Exam Const: COMMON NORMALS: no acute distress GENERAL APPEARANCE: cooperative and comfortable ORIENTATION/CONSCIOUSNESS: Yes awake, Yes oriented to person and Yes oriented to place HENMT: COMMON NORMALS: normocephalic, atraumatic and hearing grossly normal bilaterally HEAD & SCALP: normocephalic and atraumatic Neck/C-Spine: COMMON NORMALS: no JVD Resp: COMMON NORMALS: normal respiratory effort, No retractions, No use of accessory muscles and clear to auscultation bilaterally AUSCULTATION: clear to auscultation bilaterally Cardio: COMMON NORMALS: no JVD, regular rate, regular rhythm and No murmurs present (Cardio) RATE: regular rate RHYTHM: regular rhythm GI: COMMON NORMALS: Soft to palpation and No hepatosplenomegaly present AUS CULTATION: Yes normoactive bowel sounds PALPATION: Yes Soft to palpation, No Tenderness to palpation present (GI), No Guarding due to palpation present (GI) and Yes No hepatosplenomegaly present Extremity: COMMON NORMALS: normal to inspection, capillary refill normal, no clubbing, cyanosis or edema, no calf tenderness and no pedal edema Neuro: SENSORIUM/ORIENTATION: Yes oriented to person and Yes oriented to place Skin: COMMON NORMALS: no rashes or lesions noted GENERAL SKIN EXAM: no rashes or lesions noted Course Vital Signs: Vital signs: Vital Signs Temperature 98.2 F 05/19/21 16:32 Pulse Rate 69 05/19/21 20:44 Respiratory Rate 22 H 05/19/21 19:30 Blood Pressure 161/86 05/19/21 21:06 Pulse Oximetry 97 05/19/21 20:44 MDM - Chest Pain Medical Decision Making Care signed out to Dr. Vázquez at change of shift. See final notes for diagnosis and disposition. Patient presents here with chest pain along with a period of confusion. Had a l seven discussion with patient and strongly recommended admission is his history sounds like a possible TIA his urine here showed no sign of UTI troponins were normal has been having no chest pain here. He states he been having some dizziness and nausea but he states he feels much improved here. Patient did ambulate here without any difficulty. He is requesting discharge. Again I did spoke to him at length and recommended admission likely MRI in the morning and observe overnight. He states he feels improved and does not like staying at hospitals and refuses admission at this time. He is able answer all my questions appropriately is able to tell me the year he is ANO x4 no confusion at this time and is able to make his own decisions. I informed him if he has any worsening or changes mind he is to return he staying with his son as well who is going to watch him. Medical Records I reviewed the patient's medical records. Lab Data I reviewed the patient's lab results. : 05/19/21 16:18 05/19/21 16:18 Radiology Impressions Chest X-Ray 05/19/21 16:38 IMPRESSION: No acute findings. Head CT 05/19/21 18:51 IMPRESSION: 1. Mild left maxillary sinus disease. 2. No acute intracranial findings. Laboratory Results WBC 4.8 10^3/uL (4.0-10.0) 05/19/21 16:18 RBC 5.09 10^6/uL (4.1-5.3) 05/19/21 16:18 Hgb 16.0 g/dL (11.7-16.6) 05/19/21 16:18 Hct 49.7 % (42.0-52.0) 05/19/21 16:18 MCV 97.6 fl (80-94) H 05/19/21 16:18 MCH 31.4 pg (28.0-34.0) 05/19/21 16:18 MCHC 32.2 g/dL (30.0-36.0) 05/19/21 16:18 RDW 13.2 % (12.1-15.1) 05/19/21 16:18 Plt Count 163 10^3/cmm (130-400) 05/19/21 16:18 MPV 9.0 fL (7.4-10.4) 05/19/21 16:18 Neut % (Auto) 66.5 % 05/19/21 16:18 Lymph % (Auto) 25.7 % 05/19/21 16:18 [place] % (Auto) 6.1 % 05/19/21 16:18 Eos % (Auto) 1.3 % 05/19/21 16:18 Baso % (Auto) 0.2 % 05/19/21 16:18 Neut # (Auto) 3.19 10^3/uL (1.8-7.7) 05/19/21 16:18 Lymph # (Auto) 1.2 10^3/uL (0.8-4.8) 05/19/21 16:18 [place] # (Auto) 0.3 10^3/uL (0.2-0.9) 05/19/21 16:18 Eos # (Auto) 0.1 10^3/uL (0.0-0.8) 05/19/21 16:18 Baso # (Auto) 0.0 10^3/uL (0.0-0.1) 05/19/21 16:18 Nucleated RBC % (auto) 0 % 05/19/21 16:18 Nucleated RBCs # 0.0 /100WBC 05/19/21 16:18 Sodium 144 mmol/L (136-145) 05/19/21 16:18 Potassium 4.2 mmol/L (3.5-5.1) 05/19/21 16:18 Chloride 107 mmol/L (98-107) 05/19/21 16:18 Carbon Dioxide 23 mmol/L (22-29) 05/19/21 16:18 Anion Gap 18.2 (5-19) 05/19/21 16:18 BUN 16 mg/dL (8-23) 05/19/21 16:18 Creatinine 1.3 mg/dL (0.7-1.2) H 05/19/21 16:18 GFR Calculation Not Reportable 05/19/21 16:18 Glucose 102 mg/dL (65-115) 05/19/21 16:18 Calculated Osmolality 299 mOsm/kg (285-295) H 05/19/21 16:18 Calcium 11.1 mg/dL (8.5-10.5) H 05/19/21 16:18 Total Bilirubin 0.6 mg/dL (0.15-1.2) 05/19/21 16:18 AST 19 U/L (0-40) 05/19/21 16:18 ALT 32 U/L (0-41) 05/19/21 16:18 Alkaline Phosphatase 117 IU/L (40-130) 05/19/21 16:18 Creatine Kinase 68 U/L (39-308) 05/19/21 16:18 Troponin T Baseline 17 ng/L (0-15) H 05/19/21 16:18 Troponin T 120 Minute 16.33 ng/L (0-15) H 05/19/21 18:32 Delta Troponin T -0.67 ABS# (0-10) L 05/19/21 18:32 Total Protein 7.3 g/dL (6.6-8.7) 05/19/21 16:18 Albumin 4.9 g/dL (3.5-5.2) 05/19/21 16:18 Globulin 2.4 g/dL (1.3-4.6) 05/19/21 16:18 Urine Color Yellow (Yellow) 05/19/21 18:56 Urine Appearance Clear (CLEAR) 05/19/21 18:56 Urine pH 5 (5-7) 05/19/21 18:56 Ur Specific Virgil 1.025 (1.005-1.030) 05/19/21 18:56 Urine Protein 2+ (Negative) H 05/19/21 18:56 Urine Glucose (UA) Norm (Normal) 05/19/21 18:56 Urine Ketones Negative (Negative) 05/19/21 18:56 Urine Blood 2+ (Negative) H 05/19/21 18:56 Urine Nitrate Negative (Negative) 05/19/21 18:56 Urine Bilirubin Neg (Negative) 05/19/21 18:56 Urine Urobilinogen Norm mg/dL (Negative) 05/19/21 18:56 Ur Leukocyte Esterase 1+ (Negative) H 05/19/21 18:56 Urine RBC 0-4 /hpf (0-2) H 05/19/21 18:56 Urine WBC 25-40 /hpf (0-5) H 05/19/21 18:56 Ur Squamous Epith Cells 0-4 /hpf (0-5) H 05/19/21 18:56 Amorphous Sediment Not Reportable 05/19/21 18:56 Urine Bacteria Trace /hpf (NONE) 05/19/21 18:56 Urine Yeast 1+ /hpf H 05/19/21 18:56 Discharge Plan Discharge Patient Disposition: Home Clinical Impression: Weakness, Chest pain Condition: Stable Prescriptions: New ondansetron 4 mg tablet,disintegrating 4 mg PO Q6H PRN (Reason: nausea and vomiting) Qty: 14 0RF No Action Eliquis 5 mg tablet 5 mg PO BID 0RF Hold Instructions: Resume on 03/25/19. mirtazapine 15 mg tablet 15 mg PO BEDTIME 0RF Xanax 1 mg tablet 1 mg PO BID PRN (Reason: anxiety) Qty: 60 5RF ascorbic acid (vitamin C) 1,000 mg tablet 1 g PO BID 0RF methenamine hippurate 1 gram tablet 1 g PO BID Qty: 60 12RF Rx Instructions: Take 1000 mg of vitamin C with each dose of methenamine omeprazole 20 mg capsule,delayed release(DR/EC) 20 mg PO DAILY 0RF lisinopril 10 mg tablet 10 mg PO DAILY 0RF meloxicam [Mobic] 15 mg Tablet 15 mg PO DAILY PRN (Reason: unknown) 0RF hydrocodone-acetaminophen 10-325 mg tablet 1 - 2 tab PO QID PRN (Reason: Pain) 0RF baclofen 20 mg tablet 20 mg PO Q6H PRN (Reason: Muscle Pain) 0RF fluvoxamine 50 mg tablet 50 mg PO BID 0RF metoprolol tartrate 25 mg tablet 50 mg PO BID 0RF Discharge Orders: Discharge ED (Routine); Ordered 05/19/21 Ordered By: Fe Vázquez Referrals: Mee Natarajan MD [Primary Care Provider] - Discharge Diet: Advance as tolerated Discharge Activity: Resume usual activity Patient Instructions: Weakness (ED) Coding Level of Care Code 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 for Chg Fwd NIH stroke score NIHSS Level Of Consciousness - 1a: 0 Level Of Consciousness Questions - 1b: Both Correct Level Of Consciousness Commands - 1c: Both Correct Best Gaze - 2: Normal Visual [place] - 3: No Visual Loss Facial Palsy - 4: Normal Motor Arm Right - 5: No Drift Motor Arm Left - 5: No Drift Motor Leg Right - 6: No Drift Motor Leg Left - 6: No Drift Limb Ataxia - 7: Absent Sensory - 8: Normal Best Language - 9: No Aphasia Dysarthia - 10: Normal Extinction And Inattention - 11: 1 Score Total Score: 1 Documented by User: Fe Vázquez MD 05/19/21 21:10 HPI - Chest Pain General: Chief Complaint: Chest Pain Stated Complaint: ALTERED MENTAL STATUS Time Seen by Provider: 05/19/21 16:00 PFSH ED PFSH: Medical History Anxiety Arthritis of right acromioclavicular joint Bloody stool Change in bowel habit Chronic kidney disease, stage III (moderate) Depression Facial droop GENESIS (generalized anxiety disorder) GERD (gastroesophageal reflux disease) Hypertension Melena Postprocedural urethral stricture Recurrent UTI Sprain of right shoulder Squamous cell carcinoma of penis Urethral stricture Surgical History History of knee surgery History of laparoscopic cholecystectomy Family History Mother , in her 80's Stroke Father , in his 60's Alcoholic Denies family history of Anesthesia complication Bleeding disorder Social History Smoking and tobacco status: never smoked Second hand smoke exposure: No Alcohol intake: never Desire information about alcohol rehabilitation?: No Adopted: No Caregiver/support person: Yes Lives independently: Yes Household members: significant other Housing: House Marital status: / Highest education level completed: High School Graduate service: No Current occupational status: retired Current occupational exposures/hazards: No Pets and animals: No History of recent travel: No Sexually active: No Current gender identity: Male Tri/Nondenominational: Evangelical Special tri needs: No Agree to transfusion: No Financial difficulty paying for basics: Decline to Answer Course Vital Signs: Vital signs: Vital Signs Temperature 98.2 F 05/19/21 16:32 Pulse Rate 69 05/19/21 20:44 Respiratory Rate 22 H 05/19/21 19:30 Blood Pressure 161/86 05/19/21 21:06 Pulse Oximetry 97 05/19/21 20:44 MDM - Chest Pain Medical Decision Making Patient presents here with chest pain along with a period of confusion. Had a long discussion with patient and strongly recommended admission is his history sounds like a possible TIA his urine here showed no sign of UTI troponins were normal has been having no chest pain here. He states he been having some dizziness and nausea but he states he feels much improved here. Patient did ambulate here without any difficulty. He is requesting discharge. Again I did spoke to him at length and recommended admission likely MRI in the morning and observe overnight. He states he feels improved and does not like staying at hospitals and refuses admission at this time. He is able answer all my questions appropriately is able to tell me the year he is ANO x4 no confusion at this time and is able to make his own decisions. I informed him if he has any worsening or changes mind he is to return he staying with his son as well who is going to watch him. Lab Data : 05/19/21 16:18 05/19/21 16:18 Radiology Impressions Chest X-Ray 05/19/21 16:38 IMPRESSION: No acute findings. Head CT 05/19/21 18:51 IMPRESSION: 1. Mild left maxillary sinus disease. 2. No acute intracranial findings. Laboratory Results WBC 4.8 10^3/uL (4.0-10.0) 05/19/21 16:18 RBC 5.09 10^6/uL (4.1-5.3) 05/19/21 16:18 Hgb 16.0 g/dL (11.7-16.6) 05/19/21 16:18 Hct 49.7 % (42.0-52.0) 05/19/21 16:18 MCV 97.6 fl (80-94) H 05/19/21 16:18 MCH 31.4 pg (28.0-34.0) 05/19/21 16:18 MCHC 32.2 g/dL (30.0-36.0) 05/19/21 16:18 RDW 13.2 % (12.1-15.1) 05/19/21 16:18 Plt Count 163 10^3/cmm (130-400) 05/19/21 16:18 MPV 9.0 fL (7.4-10.4) 05/19/21 16:18 Neut % (Auto) 66.5 % 05/19/21 16:18 Lymph % (Auto) 25.7 % 05/19/21 16:18 [place] % (Auto) 6.1 % 05/19/21 16:18 Eos % (Auto) 1.3 % 05/19/21 16:18 Baso % (Auto) 0.2 % 05/19/21 16:18 Neut # (Auto) 3.19 10^3/uL (1.8-7.7) 05/19/21 16:18 Lymph # (Auto) 1.2 10^3/uL (0.8-4.8) 05/19/21 16:18 [place] # (Auto) 0.3 10^3/uL (0.2-0.9) 05/19/21 16:18 Eos # (Auto) 0.1 10^3/uL (0.0-0.8) 05/19/21 16:18 Baso # (Auto) 0.0 10^3/uL (0.0-0.1) 05/19/21 16:18 Nucleated RBC % (auto) 0 % 05/19/21 16:18 Nucleated RBCs # 0.0 /100WBC 05/19/21 16:18 Sodium 144 mmol/L (136-145) 05/19/21 16:18 Potassium 4.2 mmol/L (3.5-5.1) 05/19/21 16:18 Chloride 107 mmol/L (98-107) 05/19/21 16:18 Carbon Dioxide 23 mmol/L (22-29) 05/19/21 16:18 Anion Gap 18.2 (5-19) 05/19/21 16:18 BUN 16 mg/dL (8-23) 05/19/21 16:18 Creatinine 1.3 mg/dL (0.7-1.2) H 05/19/21 16:18 GFR Calculation Not Reportable 05/19/21 16:18 Glucose 102 mg/dL (65-115) 05/19/21 16:18 Calculated Osmolality 299 mOsm/kg (285-295) H 05/19/21 16:18 Calcium 11.1 mg/dL (8.5-10.5) H 05/19/21 16:18 Total Bilirubin 0.6 mg/dL (0.15-1.2) 05/19/21 16:18 AST 19 U/L (0-40) 05/19/21 16:18 ALT 32 U/L (0-41) 05/19/21 16:18 Alkaline Phosphatase 117 IU/L (40-130) 05/19/21 16:18 Creatine Kinase 68 U/L (39-308) 05/19/21 16:18 Troponin T Baseline 17 ng/L (0-15) H 05/19/21 16:18 Troponin T 120 Minute 16.33 ng/L (0-15) H 05/19/21 18:32 Delta Troponin T -0.67 ABS# (0-10) L 05/19/21 18:32 Total Protein 7.3 g/dL (6.6-8.7) 05/19/21 16:18 Albumin 4.9 g/dL (3.5-5.2) 05/19/21 16:18 Globulin 2.4 g/dL (1.3-4.6) 05/19/21 16:18 Urine Color Yellow (Yellow) 05/19/21 18:56 Urine Appearance Clear (CLEAR) 05/19/21 18:56 Urine pH 5 (5-7) 05/19/21 18:56 Ur Specific [place] 1.025 (1.005-1.030) 05/19/21 18:56 Urine Protein 2+ (Negative) H 05/19/21 18:56 Urine Glucose (UA) Norm (Normal) 05/19/21 18:56 Urine Ketones Negative (Negative) 05/19/21 18:56 Urine Blood 2+ (Negative) H 05/19/21 18:56 Urine Nitrate Negative (Negative) 05/19/21 18:56 Urine Bilirubin Neg (Negative) 05/19/21 18:56 Urine Urobilinogen Norm mg/dL (Negative) 05/19/21 18:56 Ur Leukocyte Esterase 1+ (Negative) H 05/19/21 18:56 Urine RBC 0-4 /hpf (0-2) H 05/19/21 18:56 Urine WBC 25-40 /hpf (0-5) H 05/19/21 18:56 Ur Squamous Epith Cells 0-4 /hpf (0-5) H 05/19/21 18:56 Amorphous Sediment Not Reportable 05/19/21 18:56 Urine Bacteria Trace /hpf (NONE) 05/19/21 18:56 Urine Yeast 1+ /hpf H 05/19/21 18:56 Discharge Plan Discharge Patient Disposition: Home Clinical Impression: Weakness, Chest pain Condition: Stable Prescriptions: New ondansetron 4 mg tablet,disintegrating 4 mg PO Q6H PRN (Reason: nausea and vomiting) Qty: 14 0RF No Action Eliquis 5 mg tablet 5 mg PO BID 0RF Hold Instructions: Resume on 03/25/19. mirtazapine 15 mg tablet 15 mg PO BEDTIME 0RF Xanax 1 mg tablet 1 mg PO BID PRN (Reason: anxiety) Qty: 60 5RF ascorbic acid (vitamin C) 1,000 mg tablet 1 g PO BID 0RF methenamine hippurate 1 gram tablet 1 g PO BID Qty: 60 12RF Rx Instructions: Take 1000 mg of vitamin C with each dose of methenamine omeprazole 20 mg capsule,delayed release(DR/EC) 20 mg PO DAILY 0RF lisinopril 10 mg tablet 10 mg PO DAILY 0RF meloxicam [Mobic] 15 mg Tablet 15 mg PO DAILY PRN (Reason: unknown) 0RF hydrocodone-acetaminophen 10-325 mg tablet 1 - 2 tab PO QID PRN (Reason: Pain) 0RF baclofen 20 mg tablet 20 mg PO Q6H PRN (Reason: Muscle Pain) 0RF fluvoxamine 50 mg tablet 50 mg PO BID 0RF metoprolol tartrate 25 mg tablet 50 mg PO BID 0RF Discharge Orders: Discharge ED (Routine); Ordered 05/19/21 Ordered By: Fe Vázquez Referrals: Mee Natarajan MD [Primary Care Provider] - Discharge Diet: Advance as tolerated Discharge Activity: Resume usual activity Patient Instructions: Weakness (ED) Coding Level of Care Code 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
[2021-05-19 17:02] VITALS: BP 96/41; PULSE 79; RESP 18; O2SAT 94
[2021-05-19 17:08] LABS: Alanine Aminotransferase 32 U/L (0-41); Albumin Level 4.9 g/dL (3.5-5.2); Alkaline Phosphatase 117 IU/L (40-130); Aspartate Amino Transferase 19 U/L (0-40); Blood Urea Nitrogen 16 mg/dL (8-23); Calcium 11.1 mg/dL (8.5-10.5); Carbon Dioxide 23 mmol/L (22-29); Chloride 107 mmol/L (98-107); Creatine Phosphokinase 68 U/L (39-308); Globulin 2.4 g/dL (1.3-4.6); Glucose 102 mg/dL (65-115); Osmolality Calculated 299 mOsm/kg (285-295); Sodium 144 mmol/L (136-145); Total Bilirubin 0.6 mg/dL (0.15-1.2); Total Protein 7.3 g/dL (6.6-8.7)
[2021-05-19 17:09] LABS: Anion Gap 18.2 (5-19); Potassium 4.2 mmol/L (3.5-5.1)
[2021-05-19 17:17] LABS: Troponin(5th) Baseline 17 ng/L (0-15)
[2021-05-19] MEDS: sodium chloride 0.9% 1,000 ML 999 ML IV (17:47)
--- NOTE | 2021-05-19 18:39 | ECG_ITS ---
[facility] Test Date: 2021-05-19 Pat Name: Mike Silva Department: Room: Gender: Male [employer]: : 1945 Requested By: Elvis Pickering Order Number: [id number] Cheko MD: Earle Nielsen M.D. Measurements Intervals [place] Rate: 74 P: 49 NE: 152 QRS: -9 QRSD: 85 T: 52 QT: 357 QTc: 398 Interpretive Statements SINUS RHYTHM WITH MARKED SINUS ARRHYTHMIA WARNING: DATA QUALITY MAY AFFECT INTERPRETATION Compared to ECG 05/19/2021 16:48:00 No significant changes Electronically Signed On 05-19-2021 20:43:26 CDT by Earle Nielsen M.D. [email or web address]
--- NOTE | 2021-05-19 18:51 | CTR_ITS ---
PROCEDURE INFORMATION: Exam: CT Head Without Contrast Exam date and time: 05/19/2021 7:02 PM Age: 75 years old Clinical indication: Altered mental status/memory loss; Patient HX: AMS with dizziness TECHNIQUE: Imaging protocol: Computed tomography of the head without contrast. Radiation optimization: All CT scans at this facility use at least one of these dose optimization techniques: automated exposure control; mA and/or kV adjustment per patient size (includes targeted exams where dose is matched to clinical indication); or iterative reconstruction. COMPARISON: CT head wo con* [id number] 05/06/2021 2:52 PM RADIATION DOSE METRICS: Total DLP (mGy-cm): 962.58 FINDINGS: Brain: Mild cerebral atrophy and ischemic leukoencephalopathy. Cerebral ventricles: No ventriculomegaly. Paranasal sinuses: Mild left maxillary sinus disease. Mastoid air cells: Visualized mastoid air cells are well aerated. Bones/joints: Unremarkable. No acute fracture. Soft tissues: Unremarkable. CT/CT head wo con* [id number] IMPRESSION: 1. Mild left maxillary sinus disease. 2. No acute intracranial findings.
[2021-05-19 19:02] LABS: Troponin 5 2HR 16.33 ng/L (0-15)
[2021-05-19 19:06] LABS: Troponin 5 2HR Delta -0.67 ABS# (0-10)
--- NOTE | 2021-05-19 19:18 | PM.CONSULT ---
Providers/Reason For Consult Consulting Physician/Specialty*: Urology/Encinas Reason for Consult*: Inability to pass catheter Requesting Physician: Dr. 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 He was admitted through the emergency department for mental status changes. Attempts at catheterization by the nursing staff with multiple catheters were unsuccessful. Patient has a known neomeatus stricture and is on a self-catheterization program about every 3 days with a 14 [place]an [place] catheter for stricture patency maintenance. Denies any difficulty voiding. Procedure: In and out catheterization: He was prepped and draped in usual sterile fashion. A well-lubricated 10 [place]an [place] catheter was passed without difficulty through the neomeatus into the bladder and this was followed by 12 [place] catheter as well. Urine was collected and sent for specimen. Recommend avoiding indwelling King catheter due to the difficulty in accessing the urethra with normal catheter. In and out catheterization as needed. Review of Systems Const: Denies: fever(s) Eyes: Denies: eye discharge GI: Denies: nausea or vomiting Skin/Breast: Denies: rash Neuro: Reports: confusion and Slurred speech present Psych: Denies: anxiety or depression Cliff/Lymph: Denies: easy bruising or easy bleeding All/Imm: Denies: urticaria or acute wheezing Medications/Allergies Home Medications Medication Instructions Recorded Confirmed Last Taken Type apixaban 5 mg tablet (Eliquis) 5 mg PO BID tab 03/20/19 05/19/21 10/04/20 History lisinopril 10 mg tablet 10 mg PO DAILY 10/17/19 05/19/21 10/04/20 History methenamine hippurate 1 gram tablet 1 g PO BID #60 tab 08/08/20 05/19/21 10/04/20 Rx omeprazole 20 mg capsule,delayed 20 mg PO DAILY 10/04/20 05/19/21 10/04/20 History release alprazolam 1 mg tablet (Xanax) 1 mg PO BID PRN #60 tab 11/18/20 05/19/21 Unknown Rx ascorbic acid (vitamin C) 1,000 mg 1 g PO BID tab 03/27/21 05/19/21 Unknown History tablet mirtazapine 15 mg tablet 15 mg PO BEDTIME 03/27/21 05/19/21 Unknown History baclofen 20 mg tablet 20 mg PO Q6H PRN 05/19/21 05/19/21 Unknown History fluvoxamine 50 mg tablet 50 mg PO BID 05/19/21 05/19/21 Unknown History hydrocodone 10 mg-acetaminophen 1 - 2 tab PO QID PRN 05/19/21 05/19/21 Unknown History 325 mg tablet meloxicam 15 mg tablet (Mobic) 15 mg PO DAILY PRN 05/19/21 05/19/21 Unknown History metoprolol tartrate 25 mg tablet 50 mg PO BID 05/19/21 05/19/21 Unknown History Allergies Allergy/AdvReac Type Severity Reaction Status Date / Time Penicillins Allergy Intermediate rash Verified 05/12/21 13:50 sulfamethoxazole Allergy Hallucianti Verified 05/12/21 13:50 [From Bactrim] ons trimethoprim [From Bactrim] Allergy Hallucianti Verified 05/12/21 13:50 ons PFSH Acute PFSH: Medical History (Updated 05/19/21 @ 19:25 by Martinez Encinas MD) Anxiety Arthritis of right acromioclavicular joint Bloody stool Change in bowel habit Chronic kidney disease, stage III (moderate) Depression Facial droop GENESIS (generalized anxiety disorder) GERD (gastroesophageal reflux disease) Hypertension Melena Postprocedural urethral stricture Recurrent UTI Sprain of right shoulder Squamous cell carcinoma of penis Urethral stricture Surgical History History of knee surgery History of laparoscopic cholecystectomy Family History Mother , in her 80's Stroke Father , in his 60's Alcoholic Denies family history of Anesthesia complication Bleeding disorder Social History Smoking and tobacco status: never smoked Second hand smoke exposure: No Alcohol intake: never Desire information about alcohol rehabilitation?: No Adopted: No Caregiver/support person: Yes Lives independently: Yes Household members: significant other Housing: House Marital status: / Highest education level completed: High School Graduate service: No Current occupational status: retired Current occupational exposures/hazards: No Pets and animals: No History of recent travel: No Sexually active: No Current gender identity: Male Tri/Confucianism: Jainism Special tri needs: No Agree to transfusion: No Financial difficulty paying for basics: Decline to Answer Vitals/I&O/Wt Last Vital Signs Temp 98.2 F 05/19/21 16:32 Pulse 79 05/19/21 17:02 Resp 18 05/19/21 17:02 BP 96/41 05/19/21 17:02 Pulse Ox 94 05/19/21 17:02 Weight last 48 hrs Weight 230 lb Physical Exam Const: COMMON NORMALS: no acute distress, alert and well nourished GENERAL APPEARANCE: well kempt and well developed HENMT: COMMON NORMALS: normocephalic and atraumatic HEAD & SCALP: normocephalic and atraumatic Eye: COMMON NORMALS: conjunctivae normal and no scleral icterus CONJUNCTIVA: Yes conjunctivae normal Neck/C-Spine: COMMON NORMALS: full ROM Resp: COMMON NORMALS: normal respiratory effort EFFORT & INSPECTION: No labored and No Actively coughing : OTHER: Status post partial penectomy. Neomeatus with some scarring but not severe Extremity: COMMON NORMALS: no clubbing, cyanosis or edema Neuro: COMMON NORMALS: no focal motor deficits SENSORIUM/ORIENTATION: Yes alert Psych: APPEARANCE: Yes grossly normal and Yes well kempt ATTITUDE: Yes calm and Yes engaged Skin: COMMON NORMALS: no rashes or lesions noted and no jaundice GENERAL SKIN EXAM: no rashes or lesions noted Data : 05/19/21 16:18 05/19/21 16:18 A&P Assessment and plan (1) Meatal stenosis: Status: Acute Plan He would be very difficult to get a routine King catheter and. Recommend in and out catheterization as needed. Would use a silicone 10 Venezuelan 12 Venezuelan in and out catheter. Central supply has them. When I placed the catheter in the emergency department he had a small amount of urine obtained. He is not in retention. Consult Attestations Medical Necessity Statement: See attending Coding Level of Care Code Acute Ultrasonic Solderer for Cielo Chopra Diagnoses Meatal stenosis
[2021-05-19 19:30] VITALS: BP 190/103; PULSE 70; RESP 22; O2SAT 98
[2021-05-19 19:34] LABS: Add Urine Culture? Yes; Add Urine Microscopic? YES; Bacteria Urine TRACE /hpf; Bilirubin Urine Neg (Negative); Blood Urine 2+ (Negative); Glucose Urine UA Norm (Normal); Ketones Urine Negative (Negative); Leukocyte Esterase Urine 1+ (Negative); Nitrate Urine Negative (Negative); Protein Urine 2+ (Negative); RBC Urine 0-4 /hpf (0-2); Specific Gravity, Urine 1.025 (1.005-1.030); Squamous Epithelial Cell Urine 0-4 /hpf (0-5); Urine Appearance Clear (CLEAR); Urine Color Yellow (Yellow); Urobilinogen Urine Norm (Negative); WBC Urine 25-40 /hpf (0-5); pH Urine 5 (5-7)
[2021-05-19 20:44] VITALS: BP 153/80; PULSE 69; O2SAT 97
[2021-05-19 21:06] VITALS: BP 161/86
== END 2021-05-19 21:00 | disposition home or self-care (01) ==
PROVIDERS: Family Medicine; Emergency Provider Emergency Medicine; PCP Internal Medicine
DX: R53.1 Weakness (principal); R07.9 Chest pain, unspecified; Z79.01 Long term (current) use of anticoagulants; I12.9 Hypertensive chronic kidney disease with stage 1 through stage 4 chronic kidney disease, or unspecified chronic kidney disease; N18.30 Chronic kidney disease, stage 3 unspecified
CPT/HCPCS: 70450; 71045; 80053; 81001; 82550; 84484; 85025; 87086; 93005; 96360; 99284; J7030

== ENCOUNTER 2021-07-14 15:22 | Outpatient (CLI) | payer MEDICARE, MEDICAID, SELFPAY ==
--- NOTE | 2021-07-14 15:29 | MR_ITS ---
WS: [id number] MRI HEAD WITHOUT CONTRAST TECHNIQUE: Sagittal T1, T2 axial, T2 axial FLAIR, axial and coronal T1 images, axial susceptibility w eighted imaging, axial diffusion weighted images, and coronal T2 images were obtained. CLINICAL INFORMATION: TIA COMPARISON: CT May 19, 2021 FINDINGS: Gadolinium was not administered. Unable to obtain IV access. No evidence of restricted diffusion to suggest acute ischemia. Ventricular system and basal cisterns are patent. Mild small vessel changes. Moderate parenchymal volume loss. Normal posterior fossa. Norm al vascular flow voids at the skull base. No extra-axial fluid collections. No evidence of mass or ma ss effect. Mild mucosal thickening paranasal sinuses. Small retention cyst LEFT maxillary sinus. No hemosiderin on the susceptibly weighted images. Normal optic chiasm and pituitary infundibulum. Mo derate symmetric atrophy temporal lobes and hippocampal formations. Normal posterior nasopharynx. MR/MR head wo con* [id number] IMPRESSION: 1. No evidence of restricted diffusion to suggest acute ischemia. 2. Mild small vessel changes. Moderate parenchymal volume loss. 3. No extra-axial fluid collections. No evidence of mass or mass effect. 4. Mild mucosal thickening RIGHT mastoid tip. Small retention cyst LEFT maxill ezra sinus measuring 11 mm. 5. No hemosiderin on susceptibly weighted images. 6. Moderate symmetric atrophy temporal lobes and hippocampal formations. 7. No other significant findings.
== END 2021-07-14 15:23 | disposition home or self-care (01) ==
LOC: RAD 15:28
PROVIDERS: PCP Family Medicine Adult Medicine; Visit Provider Internal Medicine
DX: G45.9 Transient cerebral ischemic attack, unspecified (principal)
CPT/HCPCS: 70551

== ENCOUNTER → 2021-07-18 15:06 | Outpatient (BNVA) | payer MEDICARE, MEDICAID, SELFPAY | PROVIDERS: PCP Family Medicine Adult Medicine; Visit Provider Emergency Medicine | DX: M25.572 Pain in left ankle and joints of left foot (principal) | CPT/HCPCS: 73600 ==

== ENCOUNTER 2021-07-18 15:48 | Emergency (ER) | payer MEDICARE, MEDICAID, SELFPAY ==
[2021-07-18 16:14] VITALS: BP 163/89; PULSE 54; RESP 16; TEMP 36.1; O2SAT 96; BMI 31.0
--- NOTE | 2021-07-18 16:31 | XRR_ITS ---
PROCEDURE INFORMATION: Exam: XR Left Ankle Exam date and time: 07/18/2021 4:45 PM Age: 76 years old Clinical indication: Pain; Ankle; Left; Additional info: Injury TECHNIQUE: Imaging protocol: XR Left ankle. Views: 3 or more views. COMPARISON: No relevant prior studies available. FINDINGS: Bones/joints: Negative for fracture. Moderate DJD at the tibiotalar joint. Soft tissues: Soft tissue swelling around the ankle. XR/XR ankle LT min 3V* [id number] IMPRESSION: No acute findings.
--- NOTE | 2021-07-18 16:31 | XRR_ITS ---
PROCEDURE INFORMATION: Exam: XR Left Foot Exam date and time: 07/18/2021 4:45 PM Age: 76 years old Clinical indication: Pain; Foot; Left; Additional info: Injury TECHNIQUE: Imaging protocol: XR Left foot. Views: 3 or more views. COMPARISON: No relevant prior studies available. FINDINGS: Bones/joints: Osseous structures are intact. Negative for fracture. Ossifications noted anterior and posterior to the tibiotalar joint measuring 8 mm and 9 mm respectively. There is moderate degenerative changes at the tibiotalar joint and these may reflect joint bodies. Soft tissues: Soft tissue swelling noted around the ankle. XR/XR foot LT min 3V* [id number] IMPRESSION: 1. No acute findings. 2. Moderate DJD of the tibiotalar joint with osseous structures noted anterior and posterior to the joint space. These may reflect joint bodies.
--- NOTE | 2021-07-18 16:33 | ED_ITS ---
HPI - Extremity Problem General: Chief complaint: Extremity Injury, Lower Stated complaint: cannot move Left leg, hurting bad Time Seen by Provider: 07/18/21 16:27 Source: patient Mode of arrival: ambulatory Limitations: no limitations History of Present Illness: 76-year-old male who states he woke up this morning with pain in his left foot and ankle. He states he also having swelling to his lateral left ankle. States his pain is sharp in nature rates an 8 out of 10 he is having difficulty walking on it due to the pain. He states pain is improved with rest no known injuries denies any calf pain denies any radiation of his pain denies any fevers. Associated symptoms: Deny chest pain, fever(s) or rash Review of Systems Const: Denies: fever(s), chills, body aches or change in appetite Eyes: Denies: blurry vision or eye discomfort ENMT: Denies: throat pain or dental pain Card: Denies: chest pain Resp: Denies: dyspnea GI: Denies: abdominal pain, nausea, vomiting or diarrhea : Denies: dysuria Musc: Reports: extremity pain and extremity swelling Skin/Breast: Denies: rash Neuro: Denies: headache(s) Psych: Denies: depression Cliff/Lymph: Denies: easy bruising All/Imm: Denies: urticaria PFSH ED PFSH: Medical History Acute viral syndrome Anxiety Arthritis of right acromioclavicular joint Chronic kidney disease, stage III (moderate) Depression Facial droop GERD (gastroesophageal reflux disease) Hypertension Meatal stenosis Melena Obesity (BMI 30.0-34.9) Osteoarthritis involving multiple joints on both sides of body Neck back & Rt knee and rt AC joint Osteoarthritis of right knee Postprocedural urethral stricture Recurrent UTI Sprain of right shoulder Squamous cell carcinoma of penis TIA (transient ischemic attack) Urethral stricture Surgical History History of knee surgery History of laparoscopic cholecystectomy Family History Mother , in her 80's Stroke Father , in his 60's Alcoholic Denies family history of Anesthesia complication Bleeding disorder Social History Smoking and tobacco status: never smoked Second hand smoke exposure: No Alcohol intake: never Desire information about alcohol rehabilitation?: No Adopted: No Caregiver/support person: Yes Lives independently: Yes Household members: significant other Housing: House Marital status: / Highest education level completed: High School Graduate service: No Current occupational status: retired Current occupational exposures/hazards: No Pets and animals: No History of recent travel: No Sexually active: No Current gender identity: Male Tri/Religious: [employer] Special tri needs: No Agree to transfusion: No Financial difficulty paying for basics: Decline to Answer Physical Exam Const: COMMON NORMALS: no acute distress, patient oriented x3 and healthy appearing HENMT: COMMON NORMALS: normocephalic and atraumatic HEAD & SCALP: normocephalic and atraumatic Eye: COMMON NORMALS: Equal, round and reactive pupils present and EOMs intact bilaterally PUPIL: Yes Equal, round and reactive pupils present Neck/C-Spine: COMMON NORMALS: full ROM and supple Chest: COMMONS NORMALS: normal inspection of the chest and normal palpation of entire chest wall Resp: COMMON NORMALS: normal respiratory effort, No retractions, No use of accessory muscles and clear to auscultation bilaterally AUSCULTATION: clear to auscultation bilaterally Cardio: COMMON NORMALS: regular rate, regular rhythm and No murmurs present (Cardio) RATE: regular rate RHYTHM: regular rhythm GI: COMMON NORMALS: Normal to inspection, nondistended, normoactive bowel sounds present, Soft to palpation, non-tender and no masses PALPATION: Yes Soft to palpation Extremity: NARRATIVE EXTREMITY EXAM: Tenderness to left lateral ankle some swelling no warmth to touch distal pulses intact no calf tenderness Neuro: COMMON NORMALS: patient oriented x3, moves all extremities and no focal motor deficits Psych: COMMON NORMALS: mental status grossly normal, Normal thought process present and cooperative THOUGHT PROCESS: Normal thought process present Skin: COMMON NORMALS: no rashes or lesions noted and no wounds GENERAL SKIN EXAM: no rashes or lesions noted Course Vital Signs: Vital signs: Vital Signs Temperature 97.0 F L 07/18/21 16:14 Pulse Rate 54 L 07/18/21 16:14 Respiratory Rate 16 07/18/21 16:59 Blood Pressure 163/89 07/18/21 16:14 Pulse Oximetry 96 07/18/21 16:14 MDM - Extremity (Nontraumatic) Medical Decision Making Patient presents with left ankle pain likely from arthritis he has no signs of septic joint on exam distal pulses intact no signs of DVT patient is stable for discharge she is to follow-up with podiatry and return if worsening he understands agrees to plan. Lab Data : 07/18/21 17:18 Radiology Impressions Ankle X-Ray 07/18/21 16:31 IMPRESSION: No acute findings. Foot X-Ray 07/18/21 16:31 IMPRESSION: 1. No acute findings. 2. Moderate DJD of the tibiotalar joint with osseous structures noted anterior and posterior to the joint space. These may reflect joint bodies. Laboratory Results WBC 8.1 10^3/uL (4.0-10.0) 07/18/21 17:18 RBC 4.39 10^6/uL (4.1-5.3) 07/18/21 17:18 Hgb 13.4 g/dL (11.7-16.6) 07/18/21 17:18 Hct 42.3 % (42.0-52.0) 07/18/21 17:18 MCV 96.4 fl (80-94) H 07/18/21 17:18 MCH 30.5 pg (28.0-34.0) 07/18/21 17:18 MCHC 31.7 g/dL (30.0-36.0) 07/18/21 17:18 RDW 13.3 % (12.1-15.1) 07/18/21 17:18 Plt Count 172 10^3/cmm (130-400) 07/18/21 17:18 MPV 9.0 fL (7.4-10.4) 07/18/21 17:18 Neut % (Auto) 76.3 % 07/18/21 17:18 Lymph % (Auto) 16.2 % 07/18/21 17:18 [place] % (Auto) 5.0 % 07/18/21 17:18 Eos % (Auto) 1.5 % 07/18/21 17:18 Baso % (Auto) 0.4 % 07/18/21 17:18 Neut # (Auto) 6.21 10^3/uL (1.8-7.7) 07/18/21 17:18 Lymph # (Auto) 1.3 10^3/uL (0.8-4.8) 07/18/21 17:18 [place] # (Auto) 0.4 10^3/uL (0.2-0.9) 07/18/21 17:18 Eos # (Auto) 0.1 10^3/uL (0.0-0.8) 07/18/21 17:18 Baso # (Auto) 0.0 10^3/uL (0.0-0.1) 07/18/21 17:18 Nucleated RBC % (auto) 0 % 07/18/21 17:18 Nucleated RBCs # 0.0 /100WBC 07/18/21 17:18 Discharge Plan Discharge Patient Disposition: Home Clinical Impression: Ankle pain, left Qualifiers: Chronicity: acute Qualified Code(s): M25.572 - Pain in left ankle and joints of left foot Condition: Stable Prescriptions: No Action ascorbic acid (vitamin C) 1,000 mg tablet 1 g PO BID 0RF meloxicam [Mobic] 15 mg tablet 15 mg PO DAILY PRN (Reason: arthritis pain) Qty: 30 0RF Xanax 1 mg tablet 1 mg PO BID PRN (Reason: anxiety) 30 Days Qty: 60 3RF Eliquis 5 mg tablet 5 mg PO BID Qty: 60 5RF Hold Instructions: Resume on 03/25/19. lisinopril 10 mg tablet 10 mg PO DAILY Qty: 30 5RF metoprolol tartrate 25 mg tablet 50 mg PO BID Qty: 60 5RF mirtazapine 15 mg tablet 15 mg PO BEDTIME Qty: 30 5RF omeprazole 20 mg capsule,delayed release(DR/EC) 20 mg PO DAILY PRN (Reason: acid reflux) Qty: 30 3RF methenamine hippurate 1 gram tablet 1 g PO BID Qty: 60 12RF Rx Instructions: Take 1000 mg of vitamin C with each dose of methenamine hydrocodone-acetaminophen 10-325 mg tablet 1 - 2 tab PO QID PRN (Reason: Pain) 0RF fluvoxamine 50 mg tablet 50 mg PO BID 0RF Discharge Orders: Discharge ED (Routine); Ordered 07/18/21 Ordered By: Fe Vázquez Referrals: Charlie Jay MD [Primary Care Provider] - Jermaine Zhang DPM [Physician] - 1-3 days Discharge Diet: Advance as tolerated Discharge Activity: Resume usual activity Patient Instructions: Arthralgia (ED) Coding Level of Care Code ED 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
[2021-07-18 16:59] VITALS: RESP 16
[2021-07-18] MEDS: morphine 4 mg/mL SDV 1 mL IM (16:59)
[2021-07-18 17:38] LABS: Basophils % 0.4 %; Eosinophils # 0.1 10^3/uL (0.0-0.8); Eosinophils % 1.5 %; Hematocrit 42.3 % (42.0-52.0); Hemoglobin 13.4 g/dL (11.7-16.6); Lymphocytes # 1.3 10^3/uL (0.8-4.8); Lymphocytes % 16.2 %; Mean Corpuscular HGB Conc 31.7 g/dL (30.0-36.0); Mean Corpuscular Hemoglobin 30.5 pg (28.0-34.0); Mean Corpuscular Volume 96.4 fl (80-94); Monocytes # 0.4 10^3/uL (0.2-0.9); Neutrophils # 6.21 10^3/uL (1.8-7.7); Neutrophils % 76.3 %; Nucleated Red Blood Cells % 0 %; Platelet Count 172 10^3/cmm (130-400); Red Blood Count 4.39 10^6/uL (4.1-5.3); Red Cell Distribution Width 13.3 % (12.1-15.1); White Blood Count 8.1 10^3/uL (4.0-10.0)
--- NOTE | 2021-07-21 10:14 | DCPLANNER ---
Addendum entered by Paola Evans 07/25/21 11:11: assessment manager was told that clinic was unable to speak with patient to schedule an appointment with patient. Patient did not have a voicemail set up, clinic did send a letter to patient. Original Note: assessment manager had message to schedule a follow up appointment for patient with ortho. assessment manager sent patients information to the front office staff at ortho. Patients information will be printed and reviewed. Clinic will call patient with appointment information.
== END 2021-07-18 17:58 | disposition home or self-care (01) ==
PROVIDERS: Emergency Provider Emergency Medicine; PCP Family Medicine Adult Medicine
DX: M25.572 Pain in left ankle and joints of left foot (principal); M25.472 Effusion, left ankle; Z79.01 Long term (current) use of anticoagulants; Z79.899 Other long term (current) drug therapy
CPT/HCPCS: 36415; 73600; 73610; 73630; 85025; 96372; 99283; J2270

== ENCOUNTER → 2021-07-25 11:58 | Outpatient (BNVA) | payer MEDICARE, MEDICAID, SELFPAY | PROVIDERS: PCP Family Medicine Adult Medicine; Referring Provider Emergency Medicine; Visit Provider Podiatrist Foot & Ankle Surgery | DX: M19.172 Post-traumatic osteoarthritis, left ankle and foot (principal); M25.372 Other instability, left ankle; M25.572 Pain in left ankle and joints of left foot | CPT/HCPCS: 73610; 99204 ==

== ENCOUNTER 2021-07-25 13:39 | Outpatient (CLI) | payer MEDICARE, MEDICAID, SELFPAY | END 2021-07-25 13:40 | disposition home or self-care (01) | LOC: SPT 13:40 | PROVIDERS: PCP Family Medicine Adult Medicine; Visit Provider Podiatrist Foot & Ankle Surgery | DX: Z47.89 Encounter for other orthopedic aftercare (principal) | CPT/HCPCS: 97760; L1902 ==

== ENCOUNTER 2021-07-25 15:22 | Emergency (ER) | payer MEDICARE, MEDICAID, SELFPAY ==
[2021-07-25 15:32] VITALS: BP 130/72; PULSE 50; RESP 20; TEMP 36.6; O2SAT 92; BMI 31.8
--- NOTE | 2021-07-25 15:41 | W.ED.GENADLT ---
HPI - General Adult General: Chief complaint: General Medical Stated complaint: HIGH BP Time Seen by Provider: 07/25/21 15:40 Source: patient Mode of arrival: EMS Limitations: no limitations History of Present Illness: Patient with known history of hypertension has been noting that his blood pressure has been off and on elevated at times over the past number of weeks. Apparently he was at the orthopedic clinic getting a brace fitted for his left foot and was noted to have an elevation his blood pressure and went over to his primary care clinic. Apparently at that facility he was noted to have a systolic blood pressure of 200 and a diastolic in the 110 range. They decided to send him to the emergency department via EMS. Also apparently unbeknownst to anyone but the patient and the physician at the facility he was given a 0.1 of clonidine prior to EMS arrival. The patient denied any associated symptoms of chest pain, headache, shortness of breath etc. He states he has been taking his medications as prescribed. He does admit that he ate at [employer] earlier today hamburger and fries. He also apparently has been taking meloxicam up until just recently. He denies any other nonsteroidals currently. Associated symptoms: Reports no associated symptoms; Deny chest pain, dyspnea, headache(s), nausea, rash, palpitations, syncope or vomiting Review of Systems Const: Denies: fever(s) or chills Eyes: Denies: change in vision or blurry vision ENMT: Denies: throat pain or odynophagia Card: Denies: chest pain, palpitations, irregular heart rhythm, syncope or pre-syncope Resp: Denies: dyspnea, productive cough or non-productive cough GI: Denies: abdominal pain, nausea or vomiting : Denies: flank pain, difficulty urinating, dysuria or urinary frequency Musc: Reports: extremity pain (Left foot and ankle); Denies: neck pain, back pain or extremity swelling Skin/Breast: Denies: rash or pruritus Neuro: Denies: headache(s), numbness in extremities, weakness in extremities, difficulty walking or Slurred speech present Psych: Denies: anxiety, depression or mood swings Endo: Denies: polyuria or polydipsia Cliff/Lymph: Denies: easy bruising or easy bleeding [facility] ED PFSH: Medical History Acute viral syndrome Anxiety Arthritis of right acromioclavicular joint Chronic kidney disease, stage III (moderate) Depression Facial droop GERD (gastroesophageal reflux disease) Hypertension Meatal stenosis Melena Obesity (BMI 30.0-34.9) Osteoarthritis involving multiple joints on both sides of body Neck back & Rt knee and rt AC joint Osteoarthritis of right knee Postprocedural urethral stricture Recurrent UTI Sprain of right shoulder Squamous cell carcinoma of penis TIA (transient ischemic attack) Urethral stricture Surgical History History of knee surgery History of laparoscopic cholecystectomy Family History Mother , in her 80's Stroke Father , in his 60's Alcoholic Denies family history of Anesthesia complication Bleeding disorder Social History Smoking and tobacco status: never smoked Second hand smoke exposure: No Alcohol intake: never Desire information about alcohol rehabilitation?: No Adopted: No Caregiver/support person: Yes Lives independently: Yes Household members: significant other Housing: House Marital status: / Highest education level completed: High School Graduate service: No Current occupational status: retired Current occupational exposures/hazards: No Pets and animals: No History of recent travel: No Sexually active: No Current gender identity: Male Tri/Druze: [employer]ian Special tri needs: No Agree to transfusion: No Financial difficulty paying for basics: Decline to Answer Physical Exam Narrative: EXAM NARRATIVE: The patient is alert comfortable goal-directed in his speech. Const: COMMON NORMALS: no acute distress and patient oriented x3 GENERAL APPEARANCE: cooperative, comfortable and well kempt HENMT: COMMON NORMALS: normocephalic, atraumatic, Normal nasal mucous membranes and turbinates present and moist oral mucous membranes HEAD & SCALP: normocephalic and atraumatic FACE & SINUS: normal facial exam NOSE: Normal nasal mucous membranes and turbinates present Eye: COMMON NORMALS: Equal, round and reactive pupils present, EOMs intact bilaterally and conjunctivae normal CONJUNCTIVA: Yes conjunctivae normal PUPIL: Yes Equal, round and reactive pupils present Neck/C-Spine: COMMON NORMALS: full ROM, no lymphadenopathy, supple, no meningeal signs and No carotid bruits Chest: COMMONS NORMALS: normal inspection of the chest and normal palpation of entire chest wall Resp: COMMON NORMALS: normal respiratory effort, No retractions and clear to auscultation bilaterally AUSCULTATION: clear to auscultation bilaterally Cardio: COMMON NORMALS: regular rate, regular rhythm, No murmurs present (Cardio) and Peripheral pulses 2+ throughout RATE: regular rate RHYTHM: regular rhythm PERIPHERAL PULSES: Peripheral pulses 2+ throughout GI: COMMON NORMALS: Normal to inspection, nondistended, normoactive bowel sounds present, Soft to palpation and no bruits PALPATION: Yes Soft to palpation Back/Pelvis: COMMON NORMALS: thoracic and lumbar spine normal to inspection, no thoracic nor lumbar tenderness and thoraco-lumbar ROM normal Extremity: COMMON NORMALS: normal to inspection, full ROM, capillary refill normal, no joint enlargement, no clubbing, cyanosis or edema, no calf tenderness and no pedal edema NARRATIVE EXTREMITY EXAM: Has a lace up stirrup brace on his left ankle. Neuro: COMMON NORMALS: patient oriented x3, moves all extremities, no focal motor deficits, no sensory deficits noted and deep tendon reflexes 2+ bilaterally MENINGEAL SIGNS: Yes no meningeal signs Psych: COMMON NORMALS: mental status grossly normal APPEARANCE: Yes well kempt Skin: COMMON NORMALS: no rashes or lesions noted, turgor normal and no jaundice GENERAL SKIN EXAM: no rashes or lesions noted and turgor normal Course Reevaluation(s): Reevaluation #1: Patient's vital signs are stable at this time. Blood pressure is 130/78. Time: 16:03 Vital Signs: Vital signs: Vital Signs Temperature 97.8 F 07/25/21 15:32 Pulse Rate 50 L 07/25/21 15:32 Respiratory Rate 20 H 07/25/21 15:32 Blood Pressure 130/72 07/25/21 15:32 Pulse Oximetry 92 07/25/21 15:32 [facility] - General Adult Medical Decision Making Patient with chronic hypertension who has been adherent to his regimen. Patient had elevation of blood pressure today at the clinic without symptoms and was sent by EMS to the emergency department. In the interim and apparently after a 0.1 mg of clonidine received his blood pressure is now well controlled in the normal range. Currently there is no clinical indication for any intervention or additional work-up in the emergency department. The patient has known hypertension, has a blood pressure cuff, he was asymptomatic at the time of's being seen earlier and is totally asymptomatic now. I discussed the patient's medication regimen with him. I think it is reasonable to continue to follow his blood pressure and if his blood pressures revert back to a elevation greater than 140/90 or then perhaps additional adjustments in his medications would be warranted. We will not make any adjustments in his medication in the emergency department today. There is [place] no indication for work-up at this time. We will observe him for period of time in the emergency department to ensure stability and plan on discharging home. Medical Records I reviewed the patient's medical records. Discharge Plan Discharge Patient Disposition: Home Clinical Impression: Chronic hypertension Condition: Stable Prescriptions: No Action ascorbic acid (vitamin C) 1,000 mg tablet 1 g PO BID 0RF meloxicam [Mobic] 15 mg tablet 15 mg PO DAILY PRN (Reason: arthritis pain) Qty: 30 0RF (DME) ASO to the Left See Rx Instructions .Route .MEDSUPPLY Qty: 1 0RF Rx Instructions: As directed (DME) AFO to the Left See Rx Instructions .Route .MEDSUPPLY Qty: 1 0RF Rx Instructions: As directed [facility] diclofenac sodium 1 % gel 4 g topical QID Qty: 100 5RF Rx Instructions: Apply to Left Ankle TOPICALLY TO AFFECTED AREA 4 TIMES PER DAY AT 07,11,17,21 Xanax 1 mg tablet 1 mg PO BID PRN (Reason: anxiety) 30 Days Qty: 60 3RF Eliquis 5 mg tablet 5 mg PO BID Qty: 60 5RF Hold Instructions: Resume on 03/25/19. lisinopril 10 mg tablet 10 mg PO DAILY Qty: 30 5RF metoprolol tartrate 25 mg tablet 50 mg PO BID Qty: 60 5RF mirtazapine 15 mg tablet 15 mg PO BEDTIME Qty: 30 5RF omeprazole 20 mg capsule,delayed release(DR/EC) 20 mg PO DAILY PRN (Reason: acid reflux) Qty: 30 3RF methenamine hippurate 1 gram tablet 1 g PO BID Qty: 60 12RF Rx Instructions: Take 1000 mg of vitamin C with each dose of methenamine hydrocodone-acetaminophen 10-325 mg tablet 1 - 2 tab PO QID PRN (Reason: Pain) 0RF fluvoxamine 50 mg tablet 50 mg PO BID 0RF Discharge Orders: Discharge ED (Routine); Ordered 07/25/21 Ordered By: Frantz Shahid Referrals: Charlie Jay MD [Primary Care Provider] - 2 weeks (This patient was sent to the emergency department for asymptomatic blood pressure elevation. He will need monitoring as an outpatient and medication adjustments.) Patient Instructions: Opioid Safety Activity Restrictions/Additional Instructions: Continue all your usual medications as prescribed. Do not salt your food or eat salty food such as foods that are in a bag, and cans, etc.). Avoid fast foods. Monitor your blood pressure and record those numbers twice daily after you have been sitting for 10 to 15 minutes. Contact your primary care office on Wednesday to arrange a follow-up for the next 10 days or so to review your blood pressure readings and the need for additional medication adjustments. Should you develop any chest pain, headache, weakness, shortness of breath return to this or the nearest emergency department. Coding Level of Care Code ED Construction Grip for Cielo Chopra
[2021-07-25 16:00] VITALS: BP 130/72; PULSE 49; RESP 16; O2SAT 98
[2021-07-25 16:32] VITALS: BP 117/74; PULSE 51; RESP 16; O2SAT 97
== END 2021-07-25 16:34 | disposition home or self-care (01) ==
PROVIDERS: Emergency Provider Emergency Medicine; PCP Family Medicine Adult Medicine
DX: I10 Essential (primary) hypertension (principal); Z79.899 Other long term (current) drug therapy
CPT/HCPCS: 99283

== ENCOUNTER 2021-07-25 22:33 | Emergency (ER) | payer MEDICARE, MEDICAID, SELFPAY ==
[2021-07-25 22:56] VITALS: BP 204/96; PULSE 48; RESP 18; TEMP 36.7; O2SAT 96; BMI 31.8
--- NOTE | 2021-07-25 23:02 | ECG_ITS ---
[facility] Test Date: 2021-07-25 Pat Name: Mike Silva Department: Room: Gender: Male Content Director: : 1945 Requested By: Grabiel Crystal Order Number: [id number] Cheko MD: Toro Fonseca M.D. Measurements Intervals [place] Rate: 49 P: 25 AK: 148 QRS: 8 QRSD: 79 T: 35 QT: 407 QTc: 369 Interpretive Statements SINUS BRADYCARDIA WITH MARKED SINUS ARRHYTHMIA Compared to ECG 05/19/2021 18:15:38 Sinus rhythm no longer present Electronically Signed On 07-27-2021 20:32:55 CDT by Toro Fonseca M.D. [id number]
--- NOTE | 2021-07-25 23:20 | W.ED.GENADLT ---
HPI - General Adult General: Chief complaint: General Medical Stated complaint: High B/P Time Seen by Provider: 07/25/21 23:13 History of Present Illness: Patient is a 76-year-old male comes to the ED with elevated blood pressure. Patient has a history of hypertension, CKD stage III and GERD. Patient was seen here in the ED earlier today on July 25 for same complaint. He had a blood pressure reading tonight of 200/103. Patient is currently takes metoprolol 50 mg twice daily and lisinopril 10 mg daily for blood pressure. He is also on Eliquis. He reports that his last primary care physician visit his doctor was considering increasing his lisinopril dose if blood pressure remains uncontrolled. He denies any chest pain, shortness of breath, weakness, headache, neuro deficits or bladder symptoms. Associated symptoms: Deny chest pain, dyspnea, headache(s), nausea, rash, palpitations or vomiting Review of Systems Const: Denies: fever(s), chills or fatigue Eyes: Denies: change in vision or eye discomfort ENMT: Denies: throat pain, odynophagia, nasal discharge or nasal congestion Card: Denies: chest pain, palpitations, edema, swelling of feet/ankles, dyspnea on exertion or orthopnea Resp: Denies: dyspnea, productive cough or non-productive cough GI: Denies: abdominal pain, nausea, vomiting, diarrhea, constipation or hematochezia : Denies: flank pain, difficulty urinating, dysuria or hematuria Musc: Denies: neck pain, back pain or extremity swelling Skin/Breast: Denies: rash or new lesions Neuro: Denies: headache(s), numbness in extremities or weakness in extremities PFS ED PFSH: Medical History Acute viral syndrome Anxiety Arthritis of right acromioclavicular joint Chronic kidney disease, stage III (moderate) Depression Facial droop GERD (gastroesophageal reflux disease) Hypertension Meatal stenosis Melena Obesity (BMI 30.0-34.9) Osteoarthritis involving multiple joints on both sides of body Neck back & Rt knee and rt AC joint Osteoarthritis of right knee Postprocedural urethral stricture Recurrent UTI Sprain of right shoulder Squamous cell carcinoma of penis TIA (transient ischemic attack) Urethral stricture Surgical History History of knee surgery History of laparoscopic cholecystectomy Family History Mother , in her 80's Stroke Father , in his 60's Alcoholic Denies family history of Anesthesia complication Bleeding disorder Social History Smoking and tobacco status: never smoked Second hand smoke exposure: No Alcohol intake: never Desire information about alcohol rehabilitation?: No Adopted: No Caregiver/support person: Yes Lives independently: Yes Household members: significant other Housing: House Marital status: / Highest education level completed: High School Graduate service: No Current occupational status: retired Current occupational exposures/hazards: No Pets and animals: No History of recent travel: No Sexually active: No Current gender identity: Male Tri/Tenriism: Druze Special tri needs: No Agree to transfusion: No Financial difficulty paying for basics: Decline to Answer Physical Exam Const: COMMON NORMALS: no acute distress, patient oriented x3 and alert GENERAL APPEARANCE: cooperative and comfortable HENMT: COMMON NORMALS: normocephalic HEAD & SCALP: normocephalic MOUTH: Normal oral and palatal mucosa present THROAT: posterior oropharynx normal and uvula midline Eye: COMMON NORMALS: Equal, round and reactive pupils present, EOMs intact bilaterally and conjunctivae normal CONJUNCTIVA: Yes conjunctivae normal PUPIL: Yes Equal, round and reactive pupils present Neck/C-Spine: COMMON NORMALS: supple GENERAL: Yes normal visual inspection Resp: COMMON NORMALS: normal respiratory effort, No retractions, No use of accessory muscles and clear to auscultation bilaterally AUSCULTATION: clear to auscultation bilaterally Cardio: COMMON NORMALS: regular rate, regular rhythm, S1 normal heart sound present, S2 normal heart sound present, No gallops present (Cardio), No clicks present (Cardio), No murmurs present (Cardio) and Peripheral pulses 2+ throughout RATE: regular rate RHYTHM: regular rhythm HEART SOUNDS: S1 normal heart sound present and S2 normal heart sound present PERIPHERAL PULSES: Peripheral pulses 2+ throughout GI: COMMON NORMALS: Normal to inspection, nondistended, normoactive bowel sounds present, Soft to palpation, non-tender and no masses PALPATION: Yes Soft to palpation : COMMON NORMALS: Yes no CVA tenderness BLADDER/KIDNEY EXAM: Yes no CVA tenderness Back/Pelvis: COMMON NORMALS: no CVA tenderness Extremity: COMMON NORMALS: normal to inspection Neuro: COMMON NORMALS: patient oriented x3, CN's II-XII intact bilaterally, moves all extremities, no focal motor deficits and no sensory deficits noted SENSORIUM/ORIENTATION: Yes alert Skin: GENERAL SKIN EXAM: dry skin Course Vital Signs: Vital signs: Vital Signs Temperature 98.0 F 07/25/21 22:56 Pulse Rate 50 L 07/26/21 00:23 Respiratory Rate 18 07/26/21 00:23 Blood Pressure 173/94 07/26/21 00:23 Pulse Oximetry 97 07/26/21 00:23 [facility] - General Adult Medical Decision Making Patient is a 76-year-old male who comes to the ED with elevated blood pressure at home. He was seen here in the ED for same complaint earlier today. He denies any symptoms or any other complaints. He currently takes lisinopril 10 mg once daily and metoprolol 50 mg twice daily for his blood pressure. His doctor has discussed increasing his lisinopril dose if blood pressures remain uncontrolled. Blood pressure 204/96 and the rest of vitals are stable. Exam of patient is benign. CBC and BMP were unremarkable. EKG showed sinus bradycardia with no ST segment elevation or depression seen. Patient was given a dose of hydralazine p.o. here in the ED and his blood pressure went down to 173/94. Patient is stable for discharge home. Since patient has been having chronic hypertension I am sending him home with a new prescription for lisinopril 20 mg daily dose. I told him to stop taking the previously prescribed 10 mg lisinopril dose if he continues to have elevated blood pressures at home and start taking the new 20 mg lisinopril daily dose. Continue taking all other previously prescribed medications. Return to ED precautions given. Patient was told to follow-up with his PCP within the next 7 to 10 days for reevaluation. Patient understood and agreed with plan. Lab Data I reviewed the patient's lab results. : 07/25/21 23:15 07/25/21 23:15 Laboratory Results WBC 4.0 10^3/uL (4.0-10.0) 07/25/21 23:15 RBC 3.99 10^6/uL (4.1-5.3) L 07/25/21 23:15 Hgb 12.1 g/dL (11.7-16.6) 07/25/21 23:15 Hct 38.2 % (42.0-52.0) L 07/25/21 23:15 MCV 95.7 fl (80-94) H 07/25/21 23:15 MCH 30.3 pg (28.0-34.0) 07/25/21 23:15 MCHC 31.7 g/dL (30.0-36.0) 07/25/21 23:15 RDW 13.4 % (12.1-15.1) 07/25/21 23:15 Plt Count 157 10^3/cmm (130-400) 07/25/21 23:15 MPV 9.5 fL (7.4-10.4) 07/25/21 23:15 Neut % (Auto) 57.0 % 07/25/21 23:15 Lymph % (Auto) 32.1 % 07/25/21 23:15 [place] % (Auto) 7.8 % 07/25/21 23:15 Eos % (Auto) 2.0 % 07/25/21 23:15 Baso % (Auto) 0.8 % 07/25/21 23:15 Neut # (Auto) 2.26 10^3/uL (1.8-7.7) 07/25/21 23:15 Lymph # (Auto) 1.3 10^3/uL (0.8-4.8) 07/25/21 23:15 [place] # (Auto) 0.3 10^3/uL (0.2-0.9) 07/25/21 23:15 Eos # (Auto) 0.1 10^3/uL (0.0-0.8) 07/25/21 23:15 Baso # (Auto) 0.0 10^3/uL (0.0-0.1) 07/25/21 23:15 Nucleated RBC % (auto) 0 % 07/25/21 23:15 Nucleated RBCs # 0.0 /100WBC 07/25/21 23:15 Sodium 141 mmol/L (136-145) 07/25/21 23:15 Potassium 4.5 mmol/L (3.5-5.1) 07/25/21 23:15 Chloride 107 mmol/L (98-107) 07/25/21 23:15 Carbon Dioxide 24 mmol/L (22-29) 07/25/21 23:15 Anion Gap 14.5 (5-19) 07/25/21 23:15 BUN 19 mg/dL (8-23) 07/25/21 23:15 Creatinine 1.1 mg/dL (0.7-1.2) 07/25/21 23:15 GFR Calculation Not Reportable 07/25/21 23:15 Glucose 96 mg/dL (65-115) 07/25/21 23:15 Calculated Osmolality 294 mOsm/kg (285-295) 07/25/21 23:15 Calcium 9.0 mg/dL (8.5-10.5) 07/25/21 23:15 EKG Data EKG 1: EKG interpretation date: 07/25/21 Interpretation: Sinus bradycardia, 49 bpm, no ST segment elevation or depression seen. Discharge Plan Discharge Patient Disposition: Home Clinical Impression: Chronic hypertension Condition: Stable Prescriptions: New lisinopril 20 mg tablet 20 mg PO DAILY Qty: 20 0RF Discontinued lisinopril 10 mg tablet 10 mg PO DAILY Qty: 30 5RF No Action ascorbic acid (vitamin C) 1,000 mg tablet 1 g PO BID 0RF meloxicam [Mobic] 15 mg tablet 15 mg PO DAILY PRN (Reason: arthritis pain) Qty: 30 0RF (DME) ASO to the Left See Rx Instructions .Route .MEDSUPPLY Qty: 1 0RF Rx Instructions: As directed (DME) AFO to the Left See Rx Instructions .Route .MEDSUPPLY Qty: 1 0RF Rx Instructions: As directed [facility] diclofenac sodium 1 % gel 4 g topical QID Qty: 100 5RF Rx Instructions: Apply to Left Ankle TOPICALLY TO AFFECTED AREA 4 TIMES PER DAY AT 07,11,17,21 Xanax 1 mg tablet 1 mg PO BID PRN (Reason: anxiety) 30 Days Qty: 60 3RF Eliquis 5 mg tablet 5 mg PO BID Qty: 60 5RF Hold Instructions: Resume on 03/25/19. metoprolol tartrate 25 mg tablet 50 mg PO BID Qty: 60 5RF mirtazapine 15 mg tablet 15 mg PO BEDTIME Qty: 30 5RF omeprazole 20 mg capsule,delayed release(DR/EC) 20 mg PO DAILY PRN (Reason: acid reflux) Qty: 30 3RF methenamine hippurate 1 gram tablet 1 g PO BID Qty: 60 12RF Rx Instructions: Take 1000 mg of vitamin C with each dose of methenamine hydrocodone-acetaminophen 10-325 mg tablet 1 - 2 tab PO QID PRN (Reason: Pain) 0RF fluvoxamine 50 mg tablet 50 mg PO BID 0RF Discharge Orders: Discharge ED (Routine); Ordered 07/26/21 Ordered By: Yousif Rodney Referrals: Charlie Jay MD [Primary Care Provider] - Discharge Diet: Regular Discharge Activity: Resume usual activity Patient Instructions: Chronic Hypertension (DC) Activity Restrictions/Additional Instructions: Follow-up with medical provider as directed within the next 7 to 10 days for reevaluation. Continue to check your blood pressures at home 3 times a day and journal them so you can show PCP at next appointment. I am sending you with a new prescription with an increased dose of lisinopril. If you are continuing to have elevated blood pressures you can stop taking your 10 mg lisinopril dose as previously prescribed and start taking the new prescription of lisinopril 20 mg daily dose that I am sending home with you tonight. Take medications as prescribed. Return to the ER or your medical provider if condition worsens. Please read and understand discharge instructions. Thank you for choosing [facility] for your healthcare needs today. Please realize this is an emergency room and that we are providing you with a medical screening exam and this may not be complete and all inclusive of all the testing and or work up that you may need to determine your ailment or severity of your illness. It is very important that you follow up as instructed or that you return to the Emergency Department should you have concerns or if your condition changes or worsens in any way. Coding Level of Care Code ED [employer] Kiln Operator Helper for Cielo Chopra Exam Comprehensive
[2021-07-25 23:30] LABS: Basophils % 0.8 %; Eosinophils # 0.1 10^3/uL (0.0-0.8); Hematocrit 38.2 % (42.0-52.0); Hemoglobin 12.1 g/dL (11.7-16.6); Lymphocytes # 1.3 10^3/uL (0.8-4.8); Lymphocytes % 32.1 %; Mean Corpuscular HGB Conc 31.7 g/dL (30.0-36.0); Mean Corpuscular Hemoglobin 30.3 pg (28.0-34.0); Mean Corpuscular Volume 95.7 fl (80-94); Mean Platelet Volume 9.5 fL (7.4-10.4); Monocytes # 0.3 10^3/uL (0.2-0.9); Monocytes % 7.8 %; Neutrophils # 2.26 10^3/uL (1.8-7.7); Nucleated Red Blood Cells % 0 %; Platelet Count 157 10^3/cmm (130-400); Red Blood Count 3.99 10^6/uL (4.1-5.3); Red Cell Distribution Width 13.4 % (12.1-15.1)
[2021-07-25] MEDS: hyDRALAzine 25 mg Tablet PO (23:32)
[2021-07-25 23:34] VITALS: BP 162/81; PULSE 49; RESP 18; O2SAT 96
[2021-07-25 23:46] LABS: Blood Urea Nitrogen 19 mg/dL (8-23); Carbon Dioxide 24 mmol/L (22-29); Chloride 107 mmol/L (98-107); Glucose 96 mg/dL (65-115); Osmolality Calculated 294 mOsm/kg (285-295); Sodium 141 mmol/L (136-145)
[2021-07-26 00:09] LABS: Anion Gap 14.5 (5-19); Potassium 4.5 mmol/L (3.5-5.1)
[2021-07-26 00:23] VITALS: BP 173/94; PULSE 50; RESP 18; O2SAT 97
[2021-07-26 01:18] VITALS: BP 181/87; PULSE 52; RESP 16; O2SAT 96
== END 2021-07-26 01:20 | disposition home or self-care (01) ==
PROVIDERS: Emergency Medicine; Emergency Provider Physician Assistant; PCP Family Medicine Adult Medicine
DX: I12.9 Hypertensive chronic kidney disease with stage 1 through stage 4 chronic kidney disease, or unspecified chronic kidney disease (principal); N18.30 Chronic kidney disease, stage 3 unspecified; Z79.899 Other long term (current) drug therapy; Z79.01 Long term (current) use of anticoagulants; I10 Essential (primary) hypertension
CPT/HCPCS: 80048; 85025; 93005; 99283

== ENCOUNTER 2021-08-30 16:58 | Emergency (ER) | payer MEDICARE, MEDICAID, SELFPAY ==
[2021-08-30 17:03] VITALS: BP 163/86; PULSE 74; RESP 20; TEMP 37.5; O2SAT 97; BMI 31.0
[2021-08-30 17:44] LABS: Add Urine Microscopic? YES; Bilirubin Urine Neg (Negative); Blood Urine 2+ (Negative); Glucose Urine UA Norm (Normal); Ketones Urine Negative (Negative); Leukocyte Esterase Urine 2+ (Negative); Nitrate Urine Negative (Negative); Protein Urine 1+ (Negative); Specific Gravity, Urine 1.015 (1.005-1.030); Urine Appearance Hazy (CLEAR); Urine Color Straw (Yellow); Urobilinogen Urine Norm (Negative); pH Urine 5 (5-7)
[2021-08-30 17:45] LABS: Add Urine Culture? Yes; Bacteria Urine 1+ /hpf; RBC Urine 0-4 /hpf (0-2); Squamous Epithelial Cell Urine 0-4 /hpf (0-5); WBC Urine 25-40 /hpf (0-5)
--- NOTE | 2021-08-30 18:06 | ED_ITS ---
HPI - Male Genitourinary General: Chief complaint: Urogenital-Male Stated complaint: very cold Time Seen by Provider: 08/30/21 17:22 History of Present Illness: Patient is a 76-year-old male comes to the ED with chills. Patient says he usually gets the chills at first when he starts developing a UTI. He has frequent UTIs. Denies any abdominal pain, nausea/vomiting, dysuria or hematuria. Denies any other complaints or symptoms. Associated symptoms: Deny dysuria, hematuria, nausea or vomiting Review of Systems Const: Reports: chills; Denies: fever(s) or fatigue Eyes: Denies: change in vision or eye discomfort ENMT: Denies: throat pain, odynophagia, nasal discharge or nasal congestion Card: Denies: chest pain, palpitations, edema, swelling of feet/ankles, dyspnea on exertion or orthopnea Resp: Denies: dyspnea, productive cough or non-productive cough GI: Denies: abdominal pain, nausea, vomiting, diarrhea, constipation or hematochezia : Denies: flank pain, difficulty urinating, dysuria or hematuria Musc: Denies: neck pain, back pain or extremity swelling Skin/Breast: Denies: rash or new lesions Neuro: Denies: headache(s), numbness in extremities or weakness in extremities PFSH ED PFSH: Medical History Acute viral syndrome Anxiety Arthritis of right acromioclavicular joint Chronic kidney disease, stage III (moderate) Depression Facial droop GERD (gastroesophageal reflux disease) Hypertension Meatal stenosis Melena Obesity (BMI 30.0-34.9) Osteoarthritis involving multiple joints on both sides of body Neck back & Rt knee and rt AC joint Osteoarthritis of right knee Postprocedural urethral stricture Recurrent UTI Sprain of right shoulder Squamous cell carcinoma of penis TIA (transient ischemic attack) Urethral stricture Surgical History History of knee surgery History of laparoscopic cholecystectomy Family History Mother , in her 80's Stroke Father , in his 60's Alcoholic Denies family history of Anesthesia complication Bleeding disorder Social History (Reviewed 08/31/21 @ 02:22 by WILFRIDO Mota Smoking and tobacco status: never smoked Second hand smoke exposure: No Alcohol intake: never Desire information about alcohol rehabilitation?: No Adopted: No Caregiver/support person: Yes Lives independently: Yes Household members: significant other Housing: House Marital status: / Highest education level completed: High School Graduate service: No Current occupational status: retired Current occupational exposures/hazards: No Pets and animals: No History of recent travel: No Sexually active: No Current gender identity: Male Tri/Zoroastrianism: Islam Special tri needs: No Agree to transfusion: No Financial difficulty paying for basics: Decline to Answer Physical Exam Const: COMMON NORMALS: no acute distress, patient oriented x3 and alert GENERAL APPEARANCE: cooperative and comfortable HENMT: COMMON NORMALS: normocephalic HEAD & SCALP: normocephalic MOUTH: Normal oral and palatal mucosa present THROAT: posterior oropharynx normal and uvula midline Neck/C-Spine: COMMON NORMALS: supple GENERAL: Yes normal visual inspection Resp: COMMON NORMALS: normal respiratory effort, No retractions, No use of accessory muscles and clear to auscultation bilaterally AUSCULTATION: clear to auscultation bilaterally Cardio: COMMON NORMALS: regular rate, regular rhythm, S1 normal heart sound present, S2 normal heart sound present, No gallops present (Cardio), No clicks present (Cardio), No murmurs present (Cardio) and Peripheral pulses 2+ throughout RATE: regular rate RHYTHM: regular rhythm HEART SOUNDS: S1 normal heart sound present and S2 normal heart sound present PERIPHERAL PULSES: Peripheral pulses 2+ throughout GI: COMMON NORMALS: Normal to inspection, nondistended, normoactive bowel sounds present, Soft to palpation, non-tender and no masses PALPATION: Yes Soft to palpation : COMMON NORMALS: Yes no CVA tenderness BLADDER/KIDNEY EXAM: Yes no CVA tenderness Back/Pelvis: COMMON NORMALS: no CVA tenderness Extremity: COMMON NORMALS: normal to inspection Neuro: COMMON NORMALS: patient oriented x3 and moves all extremities SENSORIUM/ORIENTATION: Yes alert Skin: GENERAL SKIN EXAM: dry skin Course Vital Signs: Vital signs: Vital Signs Temperature 99.5 F 08/30/21 17:03 Pulse Rate 74 08/30/21 17:03 Respiratory Rate 20 H 08/30/21 17:03 Blood Pressure 163/86 08/30/21 17:03 Pulse Oximetry 97 07/02/22 17:03 MDM - Male Medical Decision Making Patient is a 76-year-old male comes to the ED with the chills. He has a history of UTIs. Patient says whenever he starts getting the chills he has a UTI. Denies any other symptoms.Vitals are stable and patient appears nontoxic and in no acute distress or pain. The rest of exam is benign. UA was suspicious for a UTI. Patient was diagnosed with UTI and discharged home with cefdinir. Told to follow-up with PCP in the next week for reevaluation. Patient understood and agreed with plan. Lab Data Laboratory Results Urine Color Straw (Yellow) 08/30/21 17:12 Urine Appearance Hazy (CLEAR) A 08/30/21 17:12 Urine pH 5 (5-7) 08/30/21 17:12 Ur Specific [place] 1.015 (1.005-1.030) 08/30/21 17:12 Urine Protein 1+ (Negative) H 08/30/21 17:12 Urine Glucose (UA) Norm (Normal) 08/30/21 17:12 Urine Ketones Negative (Negative) 08/30/21 17:12 Urine Blood 2+ (Negative) H 08/30/21 17:12 Urine Nitrate Negative (Negative) 08/30/21 17:12 Urine Bilirubin Neg (Negative) 08/30/21 17:12 Urine Urobilinogen Norm mg/dL (Negative) 08/30/21 17:12 Ur Leukocyte Esterase 2+ (Negative) H 08/30/21 17:12 Urine RBC 0-4 /hpf (0-2) H 08/30/21 17:12 Urine WBC 25-40 /hpf (0-5) H 08/30/21 17:12 Ur Squamous Epith Cells 0-4 /hpf (0-5) H 08/30/21 17:12 Amorphous Sediment Not Reportable 08/30/21 17:12 Urine Bacteria 1+ /hpf (NONE) H 08/30/21 17:12 Discharge Plan Discharge Patient Disposition: Home Clinical Impression: UTI (urinary tract infection) Qualifiers: Urinary tract infection type: acute cystitis Hematuria presence: with hematuria Qualified Code(s): N30.01 - Acute cystitis with hematuria Condition: Stable Prescriptions: New cefdinir 300 mg capsule 300 mg PO BID 10 Days Qty: 20 0RF No Action ascorbic acid (vitamin C) 1,000 mg tablet 1 g PO BID 0RF meloxicam [Mobic] 15 mg tablet 15 mg PO DAILY PRN (Reason: arthritis pain) Qty: 30 0RF (DME) ASO to the Left See Rx Instructions .Route .MEDSUPPLY Qty: 1 0RF Rx Instructions: As directed diclofenac sodium 1 % gel 4 g topical QID Qty: 100 5RF Rx Instructions: Apply to Left Ankle TOPICALLY TO AFFECTED AREA 4 TIMES PER DAY AT 07,11,17,21 Xanax 1 mg tablet 1 mg PO BID PRN (Reason: anxiety) 30 Days Qty: 60 3RF Eliquis 5 mg tablet 5 mg PO BID Qty: 60 5RF Hold Instructions: Resume on 03/25/19. metoprolol tartrate 25 mg tablet 50 mg PO BID Qty: 60 5RF mirtazapine 15 mg tablet 15 mg PO BEDTIME Qty: 30 5RF omeprazole 20 mg capsule,delayed release(DR/EC) 20 mg PO DAILY PRN (Reason: acid reflux) Qty: 30 3RF methenamine hippurate 1 gram tablet 1 g PO BID Qty: 60 12RF Rx Instructions: Take 1000 mg of vitamin C with each dose of methenamine (DME) AFO to the Left See Rx Instructions .Route .MEDSUPPLY Qty: 1 0RF Rx Instructions: As directed [facility] hydrocodone-acetaminophen 10-325 mg tablet 1 - 2 tab PO QID PRN (Reason: Pain) 0RF fluvoxamine 50 mg tablet 50 mg PO BID 0RF lisinopril 20 mg tablet 20 mg PO DAILY Qty: 20 0RF Discharge Orders: Discharge ED (Routine); Ordered 08/30/21 Ordered By: Yousif Rodney Referrals: Charlie Jay MD [Primary Care Provider] - Discharge Diet: Regular Discharge Activity: Increase activity as tolerated Activity Restrictions/Additional Instructions: Follow-up with medical provider as directed in the next 5 to 7 days reevaluation.Take medications as prescribed. Return to the ER or your medical provider if condition worsens. Please read and understand discharge instructions. Thank you for choosing [facility] for your healthcare needs today. Please realize this is an emergency room and that we are providing you with a medical screening exam and this may not be complete and all inclusive of all the testing and or work up that you may need to determine your ailment or severity of your illness. It is very important that you follow up as instructed or that you return to the Emergency Department should you have concerns or if your condition changes or worsens in any way. Coding Level of Care Code ED Application Development Team Lead for Cielo Fwd Exam Comprehensive
[2021-08-30] MEDS: cefdinir 300 MG CAPSULE PO (18:46)
== END 2021-08-30 18:49 | disposition home or self-care (01) ==
PROVIDERS: Emergency Medicine; Emergency Provider Physician Assistant; PCP Family Medicine Adult Medicine
DX: N30.01 Acute cystitis with hematuria (principal); Z79.01 Long term (current) use of anticoagulants; I12.9 Hypertensive chronic kidney disease with stage 1 through stage 4 chronic kidney disease, or unspecified chronic kidney disease; N18.30 Chronic kidney disease, stage 3 unspecified; Z87.440 Personal history of urinary (tract) infections
CPT/HCPCS: 81001; 87077; 87086; 87186; 99283

== ENCOUNTER → 2021-09-30 14:07 | Outpatient (BNVA) | payer MEDICARE, MEDICAID, SELFPAY | PROVIDERS: PCP Family Medicine Adult Medicine; Visit Provider Urology | DX: N39.0 Urinary tract infection, site not specified; C60.9 Malignant neoplasm of penis, unspecified; N99.110 Postprocedural urethral stricture, male, meatal | CPT/HCPCS: 81003; 87086; 99213 ==

== ENCOUNTER → 2021-10-22 13:16 | Outpatient (BNVA) | payer MEDICARE, MEDICAID, SELFPAY | PROVIDERS: PCP Family Medicine Adult Medicine; Visit Provider Podiatrist Foot & Ankle Surgery | DX: M25.372 Other instability, left ankle (principal); M19.172 Post-traumatic osteoarthritis, left ankle and foot | CPT/HCPCS: 99213 ==

== ENCOUNTER → 2021-11-11 15:16 | Outpatient (BNVA) | payer MEDICARE, MEDICAID, SELFPAY | PROVIDERS: PCP Family Medicine Adult Medicine; Visit Provider Orthopaedic Surgery | DX: M17.11 Unilateral primary osteoarthritis, right knee (principal) | CPT/HCPCS: 99213 ==

== ENCOUNTER 2021-12-01 10:24 | Observation (INO) | payer MEDICARE, MEDICAID, SELFPAY ==
[2021-12-01] VITALS (23 sets, daily range): BP systolic 124–165; BP diastolic 65–83; PULSE 35–55; RESP 5–33; TEMP 36.3–36.8; O2SAT 93–100; BMI 31.5
--- NOTE | 2021-12-01 10:44 | ECG_ITS ---
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 Measurements Intervals [place] Rate: 33 P: 29 [place]: 165 QRS: 16 QRSD: 84 T: 46 QT: 412 QTc: 308 Interpretive Statements SINUS BRADYCARDIA WITH OCCASIONAL SUPRAVENTRICULAR PREMATURE COMPLEXES CRITICAL TEST RESULT Compared to ECG 07/25/2021 22:54:31 Sinus arrhythmia no longer present Electronically Signed On 12-01-2021 17:37:03 CDT by Toro Fonseca M.D. [id number]
--- NOTE | 2021-12-01 10:53 | ED_ITS ---
HPI - Chest Pain General: Chief Complaint: ER Hold Stated Complaint: Chest Pain Time Seen by Provider: 12/01/21 10:47 Source: patient Mode of arrival: ambulatory History of Present Illness: 76-year-old male presents emergency room with complaint of chest discomfort radiating around to the right side and into the back for the last 3 days intermittently no nausea or shortness of breath of this. He tells me he has been told he has a slow heart rate in the past. On arrival here his initial EKG shows a normal sinus rhythm with significant sinus bradycardia with a rate at 33 he is relatively asymptomatic of it. No vomiting no diarrhea no shortness of breath MD complaint: chest pain Onset (ago): day(s) (3) Timing of current episode: episodic Onset: during rest Pain location: substernal and left chest Pain radiation: none Severity: mild Quality: aching and heaviness Relieving factors: nothing Exacerbating factors: nothing Associated symptoms: Reports palpitations; Deny abdominal pain, diaphoresis, dyspnea, fever(s), leg edema, nausea or vomiting Review of Systems Const: Denies: fever(s), chills, fatigue, malaise or diaphoresis ENMT: Denies: throat pain, ear or mastoid pain, nasal discharge or nasal congestion Card: Reports: chest pain, palpitations and irregular heart rhythm; Denies: edema, dyspnea on exertion or orthopnea Resp: Denies: dyspnea GI: Denies: abdominal pain, nausea or vomiting : Denies: flank pain, dysuria, urinary frequency or urinary urgency Skin/Breast: Denies: rash or pruritus PFSH ED 2 PFSH: Medical History Anxiety Basal cell carcinoma, 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) Left, s/p Mohs Chronic kidney disease, stage III (moderate) COVID-19 (10/16/20) Depression GERD (gastroesophageal reflux disease) History of cardiac arrhythmia Has has documented transient atrial fibrillation/flutter with rapid ventricular response with spontaneous conversion to sinus rhythm in 2013 post op, again 2017 during acute illness History of nonmelanoma skin cancer Hyperparathyroidism (04/08/20) Hypertension Meatal stenosis Obesity (BMI 30.0-34.9) Osteoarthritis involving multiple joints on both sides of body Neck, back & rt knee and rt AC joint Postprocedural urethral stricture Recurrent UTI Squamous cell carcinoma of penis TIA (transient ischemic attack) Surgical History History of excision of mass (07/2015) Penile lesion, by Dr Encinas. Procedure done: 1. Dorsal relaxing incision to expose penile mass 2. Wide excision of invasive appearing penile lesion consistent grossly with squamous cell carcinoma. Involving the glans penis and incompletely resected. Squamous cell carcinoma History of knee surgery (10/2011) Dr Andres. Right knee arthroscopy, chondroplasty patella, medial femoral condyle, lateral femoral condyle and mild debridement of the posterior horn lateral meniscus. History of laparoscopic cholecystectomy History of repair of right rotator cuff (04/2020) Dr Wolfe, Arthroscopic repair right rotator cuff, limited debridement including biceps tenotomy, labral debridement, subacromial bursectomy, and subacromial decompression History of surgery on upper extremity Left, s/p fracture S/P Mohs surgery for basal cell carcinoma Left arm 10/2021 Back planned 10/2021 Family History Mother , in her 80's Stroke Father , in his 60's Alcoholic Denies family history of Anesthesia complication Bleeding disorder Social History Smoking and tobacco status: never smoked Second hand smoke exposure: No Alcohol intake: never Adopted: No Caregiver/support person: Yes Lives independently: Yes Household members: family and other Details: Son, grandson at house Housing: House Marital status: / Highest education level completed: High School Graduate service: No Current occupational status: retired Sexually active: No Current gender identity: Male Tri/Mormonism: Judaism Special tri needs: No Physical Exam Const: GENERAL APPEARANCE: cooperative and comfortable [place] ENTATION/CONSCIOUSNESS: Yes awake, Yes oriented to person, Yes oriented to place and Yes oriented to time HENMT: COMMON NORMALS: normocephalic, atraumatic and hearing grossly normal bilaterally HEAD & SCALP: normocephalic and atraumatic Resp: COMMON NORMALS: normal respiratory effort, No retractions, No use of accessory muscles and clear to auscultation bilaterally AUSCULTATION: clear to auscultation bilaterally Cardio: COMMON NORMALS: regular rate, regular rhythm and No murmurs present (Cardio) RATE: regular rate RHYTHM: regular rhythm GI: COMMON NORMALS: Soft to palpation and No hepatosplenomegaly present AUSCULTATION: Yes normoactive bowel sounds PALPATION: Yes Soft to palpation, No Tenderness to palpation present (GI), No Guarding due to palpation present (GI) and Yes No hepatosplenomegaly present Extremity: COMMON NORMALS: normal to inspection, capillary refill normal, no clubbing, cyanosis or edema, no calf tenderness and no pedal edema Neuro: SENSORIUM/ORIENTATION: Yes oriented to person, Yes oriented to place and Yes oriented to time Skin: COMMON NORMALS: no rashes or lesions noted GENERAL SKIN EXAM: no rashes or lesions noted Course Vital Signs: Vital signs: Vital Signs Temperature 98.0 F 12/02/21 04:55 Pulse Rate 47 L 12/02/21 04:55 Respiratory Rate 20 H 12/02/21 04:55 Blood Pressure 131/66 12/02/21 04:55 Pulse Oximetry 94 12/02/21 04:55 Oxygen Delivery Al thod 12/01/21 16:00 MDM - Chest Pain Medical Decision Making Significant bradycardia with heart rate into the 30s at times, blood pressure stable. No further chest pain. EKG does not show acute changes troponins unremarkable. We will admit discussed with hospitalist orders written Medical Records I reviewed the patient's medical records. Lab Data I reviewed the patient's lab results. : 12/02/21 02:52 12/02/21 02:52 Radiology Impressions Chest X-Ray 12/01/21 11:48 IMPRESSION: Mild cardiomegaly with no acute chest abnormality. Laboratory Results WBC 3.8 10^3/uL (4.0-10.0) L 12/01/21 11:10 RBC 4.22 10^6/uL (4.1-5.3) 12/01/21 11:10 Hgb 13.4 g/dL (11.7-16.6) 12/01/21 11:10 Hct 41.0 % (42.0-52.0) L 12/01/21 11:10 MCV 97.2 fl (80-94) H 12/01/21 11:10 MCH 31.8 pg (28.0-34.0) 12/01/21 11:10 MCHC 32.7 g/dL (30.0-36.0) 12/01/21 11:10 RDW 13.5 % (12.1-15.1) 12/01/21 11:10 Plt Count 115 10^3/cmm (130-400) L 12/01/21 11:10 MPV 8.5 fL (7.4-10.4) 12/01/21 11:10 Neut % (Auto) 55.9 % 12/01/21 11:10 Lymph % (Auto) 33.7 % 12/01/21 11:10 Banks % (Auto) 8.0 % 12/01/21 11:10 Eos % (Auto) 1.6 % 12/01/21 11:10 Baso % (Auto) 0.5 % 12/01/21 11:10 Neut # (Auto) 2.11 10^3/uL (1.8-7.7) 12/01/21 11:10 Lymph # (Auto) 1.3 10^3/uL (0.8-4.8) 12/01/21 11:10 Banks # (Auto) 0.3 10^3/uL (0.2-0.9) 12/01/21 11:10 Eos # (Auto) 0.1 10^3/uL (0.0-0.8) 12/01/21 11:10 Baso # (Auto) 0.0 10^3/uL (0.0-0.1) 12/01/21 11:10 Nucleated RBC % (auto) 0 % 12/01/21 11:10 Nucleated RBCs # 0.0 /100WBC 12/01/21 11:10 Sodium 140 mmol/L (136-145) 12/01/21 11:10 Potassium 4.3 mmol/L (3.5-5.1) 12/01/21 11:10 Chloride 105 mmol/L (98-107) 12/01/21 11:10 Carbon Dioxide 26 mmol/L (22-29) 12/01/21 11:10 Anion Gap 13.3 (5-19) 12/01/21 11:10 BUN 20 mg/dL (8-23) 12/01/21 11:10 Creatinine 1.3 mg/dL (0.7-1.2) H 12/01/21 11:10 GFR Calculation Not Reportable 12/01/21 11:10 Glucose 89 mg/dL (65-115) 12/01/21 11:10 Calculated Osmolality 292 mOsm/kg (285-295) 12/01/21 11:10 Calcium 9.7 mg/dL (8.5-10.5) 12/01/21 11:10 Total Bilirubin 0.9 mg/dL (0.15-1.2) 12/01/21 11:10 AST 16 U/L (0-40) 12/01/21 11:10 ALT 14 U/L (0-41) 12/01/21 11:10 Alkaline Phosphatase 76 U/L (40-130) 12/01/21 11:10 Troponin T Baseline 15 ng/L (0-15) 12/01/21 11:10 Troponin T 120 Minute 11.22 ng/L (0-15) 12/01/21 13:22 Delta Troponin T 3.78 ABS# (0-10) 12/01/21 13:22 Total Protein 6.4 g/dL (6.6-8.7) L 12/01/21 11:10 Albumin 4.2 g/dL (3.5-5.2) 12/01/21 11:10 Globulin 2.2 g/dL (1.3-4.6) 12/01/21 11:10 Discharge Plan Discharge Patient Disposition: Placed in Observation Admit Provider: Denise Lance Clinical Impression: Bradycardia, Chronic kidney disease, stage III (moderate), Chest pain Coding Level of Care Code ED General Superintendent for Chg Fwd Exam Detailed
[2021-12-01] MEDS: aspirin 81 mg Chew Tablet 324 MG PO (11:10)
[2021-12-01 11:16] LABS: Basophils % 0.5 %; Eosinophils # 0.1 10^3/uL (0.0-0.8); Eosinophils % 1.6 %; Hemoglobin 13.4 g/dL (11.7-16.6); Lymphocytes # 1.3 10^3/uL (0.8-4.8); Lymphocytes % 33.7 %; Mean Corpuscular HGB Conc 32.7 g/dL (30.0-36.0); Mean Corpuscular Hemoglobin 31.8 pg (28.0-34.0); Mean Corpuscular Volume 97.2 fl (80-94); Mean Platelet Volume 8.5 fL (7.4-10.4); Monocytes # 0.3 10^3/uL (0.2-0.9); Neutrophils # 2.11 10^3/uL (1.8-7.7); Neutrophils % 55.9 %; Nucleated Red Blood Cells % 0 %; Platelet Count 115 10^3/cmm (130-400); Red Blood Count 4.22 10^6/uL (4.1-5.3); Red Cell Distribution Width 13.5 % (12.1-15.1); White Blood Count 3.8 10^3/uL (4.0-10.0)
[2021-12-01 11:34] LABS: Troponin(5th) Baseline 15 ng/L (0-15)
[2021-12-01 11:37] LABS: Alanine Aminotransferase 14 U/L (0-41); Albumin Level 4.2 g/dL (3.5-5.2); Alkaline Phosphatase 76 U/L (40-130); Anion Gap 13.3 (5-19); Aspartate Amino Transferase 16 U/L (0-40); Blood Urea Nitrogen 20 mg/dL (8-23); Calcium 9.7 mg/dL (8.5-10.5); Carbon Dioxide 26 mmol/L (22-29); Chloride 105 mmol/L (98-107); Globulin 2.2 g/dL (1.3-4.6); Glucose 89 mg/dL (65-115); Osmolality Calculated 292 mOsm/kg (285-295); Potassium 4.3 mmol/L (3.5-5.1); Sodium 140 mmol/L (136-145); Total Bilirubin 0.9 mg/dL (0.15-1.2); Total Protein 6.4 g/dL (6.6-8.7)
--- NOTE | 2021-12-01 11:48 | XR_ITS ---
WS: [id number] XR chest 1V portable [id number] REASON FOR EXAM: dyspnea/cough FINDINGS: The chest appears unchanged compared to 05/19/2021. There is mild cardiomegaly. Moderate tortuosity and ectasia of the thoracic aorta. Calcified granulomatous disease is seen in both hemithoraces. No acute pulmonary parenchymal or pleural abnormality is identified. Mild to moderate degenerative spondylosis in the mid and lower thoracic spine. Significant bilateral shoulder joint degenerative arthropathy. XR/XR chest 1V portable [id number] IMPRESSION: Mild cardiomegaly with no acute chest abnormality.
--- NOTE | 2021-12-01 12:41 | ECG_ITS ---
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 Measurements Intervals [place] Rate: 37 P: 19 [place]: 162 QRS: 10 QRSD: 89 T: 30 QT: 439 QTc: 348 Interpretive Statements SINUS BRADYCARDIA Compared to ECG 12/01/2021 10:41:39 No significant changes Electronically Signed On 12-01-2021 17:42:37 CDT by Toro Fonseca M.D. [id number]
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
[2021-12-01 13:50] LABS: Troponin 5 2HR 11.22 ng/L (0-15)
[2021-12-01 13:52] LABS: Troponin 5 2HR Delta 3.78 ABS# (0-10)
--- OUTSIDE RECORDS SUMMARY | 2021-12-01 15:22 | XMS_ITS ---
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 use no Jalen Lane seatbelt usage 75 % Jalen Lane exercise type Walk Jalen Lane Exercise counseling yes Jalen Lane physical exercise, 7 /wk Jalen Lane frequency, days per week caffeine use, average drinks 0 /d Sanjeev Lane per day passive cigarette smoke no Jalen Michel ly exposure chewing tobacco use Never Jalen Lane smoking status Never smoker Jalen Lane domestic abuse, hx of no Janice cannon drug use no Janice Ortega alcohol use no Janice Ortega social history reviewed E&M reviewed - no change s Janice Ortega required seatbelt usage 75 % Janice Ortega exercise type Walk Janice Ortega Exercise counseling yes Janice Lynnt er physical exercise, 7 /wk Janice Vazquez r frequency, days per week caffeine use, average drinks 0 /d Cristela Singletary Foster per day passive cigarette smoke no Janice Ortega exposure chewing tobacco use Never Janice Singletary Fost er smoking status Never smoker Janice Ortega Depression Screening Negative Olena boles PHQ2 Questionairre Score 0 Olena Ho domestic abuse, hx of no Ruthann Coarcelia social history reviewed E&M reviewed - no change s Ruthann Coashelya required social history E&M Patient has never smoked.; An na Yuniel Patient has never used smokeless tobacco.; Passive Smoke: N; Alcohol Use: N; Drug Use: N; HIV/High Risk: N; Regular Exercise: Y; Hx Domestic Abuse: N; Jehovah'S Witness Affecting Care: N; drug use no Ruthann Cozza alcohol use no Ruthann Cozza seatbelt usage 75 % Ruthann Cozza exercise type Walk Ruthann Coarcelia Exercise counseling yes Ruthann Brice physical exercise, 7 /wk Ruthann Brice frequency, days per week caffeine use, average drinks 0 /d Yohana sheridan Brice per day passive cigarette smoke no Ruthann Fe za exposure chewing tobacco use Never Ruthann Coashelya smoking status Never smoker Ruthann Coarcelia PHQ9 Question Two score 0 Ruthann wray PHQ9 Question One score 0 Ruthann wray Depression Screening Negative Olena Ging ramana PHQ2 Questionairre Score 0 Olena [place] domestic abuse, hx of no Ruthann Coashelya social history reviewed E&M reviewed - no change s Ruthann Coashelya required social history E&M Patient has never smoked.; An na Yuniel Patient has never used smokeless tobacco.; Passive Smoke: N; Alcohol Use: N; Drug Use: N; HIV/High Risk: N; Regular Exercise: Y; Hx Domestic Abuse: N; Jehovah'S Witness Affecting Care: N; drug use no Ruthann Coashelya alcohol use no Ruthann Cozza seatbelt usage 75 % Ruthann Cozza exercise type Walk Ruthann Cozza Exercise counseling yes Ruthann Cozza physical exercise, 7 /wk Ruthann Cozza frequency, days per week caffeine use, average drinks 0 /d Yohana a Cozza per day passive cigarette smoke no Ruthann Coz za exposure chewing tobacco use Never Ruthann Cozza smoking status Never smoker Ruthann Cozza PHQ9 Question Two score 0 Ruthann Coz za PHQ9 Question One score 0 Ruthann Coz za domestic abuse, hx of no Pauline A Pr otsenko social history reviewed E&M reviewed - no change s Pauline A Protsenko required drug use no Pauline A Protsenk o alcohol use no Pauline A Protsenk o seatbelt usage 75 % Pauline A Protsenk o exercise type Walk Pauline A Protsenk o physical exercise, 7 /wk Pauline A Prots enko frequency, days per week caffeine use, average drinks 0 /d Burns ya A Protsenko per day passive cigarette smoke no Pauline A Protsenko exposure chewing tobacco use Never Pauline A Prot senko smoking status Never smoker Pauline A Protsenk o Exercise counseling yes Pauline A Prot senko domestic abuse, hx of no Mary Gr ogan social history reviewed E&M reviewed - no change s Mary Fransico required drug use no Mary Fransico alcohol use no Mary Fransico seatbelt usage 75 % Mary Fransico exercise type Walk Mary Fransico Exercise counseling yes Mary Grog an physical exercise, 7 /wk Mary Groga n frequency, days per week caffeine use, average drinks 0 /d Tif frederick Fransico per day passive cigarette smoke no Mary Fransico exposure chewing tobacco use Never Mary Grog an smoking status Never smoker Mary Fransico Exercise counseling yes Pauline A Prot senko domestic abuse, hx of no Pauline A Pr otsenko social history reviewed E&M reviewed - no change s Pauline A Protsenko required drug use no Pauline A Protsenk o alcohol use no Pauline A Protsenk o seatbelt usage 75 % Pauline A Protsenk o exercise type Walk Pauline A Protsenk o physical exercise, 7 /wk Pauline A Prots enko frequency, days per week caffeine use, average drinks 0 /d Burns ya A Protsenko per day passive cigarette smoke no Pauline A Protsenko exposure chewing tobacco use Never Pauline A Prot senko smoking status Never smoker Pauline A Protsenk o Exercise counseling yes Pauline A Prot senko domestic abuse, hx of no Mary Gr ogan social history reviewed E&M reviewed - no change s Mary Fransico required drug use no Mary Fransico alcohol use no Mary Fransico seatbelt usage 75 % Mary Fransico exercise type Walk Mary Fransico Exercise counseling yes Mary Grog an physical exercise, 7 /wk Mary Groga n frequency, days per week caffeine use, average drinks 0 /d Tif frederick Fransico per day passive cigarette smoke no Mary Fransico exposure chewing tobacco use Never Mary Grog an smoking status Never smoker Mary Fransico domestic abuse, hx of no Pauline A Pr otsenko social history reviewed E&M reviewed - no change s Pauline A Protsenko required drug use no Pauline A Protsenk o alcohol use no Pauline A Protsenk o seatbelt usage 75 % Pauline A Protsenk o exercise type Walk Pauline A Protsenk o physical exercise, 7 /wk Pauline A Prots enko frequency, days per week caffeine use, average drinks 0 /d Burns ya A Protsenko per day passive cigarette smoke no Pauline A Protsenko exposure chewing tobacco use Never Pauline A Prot senko smoking status Never smoker Pauline A Protsenk o Exercise counseling yes Pauline A Prot senko alcohol use, number maximum Never=0 Griselda Natarajan drinks per occasion domestic abuse, hx of no Jalen Lane social history reviewed E&M reviewed - no change s Jalen Lane required social history E&M Patient has never smoked.; Klayan Lane Patient has never used smokeless tobacco.; Passive Smoke: N; Alcohol Use: N; Drug Use: N; HIV/High Risk: N; Regular Exercise: Y; Hx Domestic Abuse: N; Jehovah'S Witness Affecting Care: N; drug use no Jalen Lane alcohol use no Jalen Lane seatbelt usage 75 % Jalen Lane exercise type Walk Jalen Lane Exercise counseling yes Jalen Lane physical exercise, 7 /wk Jalen Lane frequency, days per week caffeine use, average drinks 0 /d Sanjeev Lane per day passive cigarette smoke no Jalen Michel ly exposure chewing tobacco use Never Jalen Lane smoking status Never smoker Jalen Lane Depression Screening Negative Meedelmi tucker Delgado PHQ2 Questionairre Score 0 Mee Davis Delgado PHQ9 Question Two score 0 Mee luu Delgado PHQ9 Question One score 0 Mee luu Delgado domestic abuse, hx of no Janice M Fo ster drug use no Janice M Foster alcohol use no Janice M Foster social history reviewed E&M reviewed - no change s Janice M Foster required seatbelt usage 75 % Janice M Foster exercise type Walk Janice M Foster Exercise counseling yes Janice M Fost er physical exercise, 7 /wk Janice M Foste r frequency, days per week caffeine use, average drinks 0 /d Bec ky M Foster per day passive cigarette smoke no Janice M Foster exposure chewing tobacco use Never Janice M Fost er smoking status Never smoker Janice M Foster Depression Screening Negative Mee Turcios garrett Natarajan PHQ2 Questionairre Score 0 Mee Davis Delgado PHQ9 Question Two score 0 Ruthann wray PHQ9 Question One score 0 Ruthann wray domestic abuse, hx of no Janice Gemini Fo ster drug use no Janice M Foster alcohol use no Janice M Foster social history reviewed E&M reviewed - no change s Janice Gemini Ortega required seatbelt usage 75 % Janice M Foster exercise type Walk Janice M Foster Exercise counseling yes Janice M Fost er physical exercise, 7 /wk Janice M Foste r frequency, days per week caffeine use, average drinks 0 /d Bec ky M Foster per day passive cigarette smoke no Janice M Foster exposure chewing tobacco use Never Janice M Fost er smoking status Never smoker Janice Ortega Depression Screening Negative Zion Wong n PHQ2 Questionairre Score 0 Zion weaver domestic abuse, hx of no Ruthann Coashelya social history reviewed E&M reviewed - no change s Ruthann Coashelya required social history E&M Patient has never smoked.; An na Cozza Patient has never used smokeless tobacco.; Passive Smoke: N; Alcohol Use: N; Drug Use: N; HIV/High Risk: N; Regular Exercise: Y; Hx Domestic Abuse: N; Jehovah'S Witness Affecting Care: N; drug use no Ruthann Cozza alcohol use no Ruthann Cozza seatbelt usage 75 % Ruthann Coarcelia exercise type Walk Ruthann Coarcelia Exercise counseling yes Ruthann Coarcelia physical exercise, 7 /wk Ruthann Coashelya frequency, days per week caffeine use, average drinks 0 /d Yohana a Coashelya per day passive cigarette smoke no Ruthann Colilia za exposure chewing tobacco use Never Ruthann Cozza smoking status Never smoker Ruthann Coashelya PHQ9 Question Two score 0 Ruthann wray PHQ9 Question One score 0 Ruthannsheridan wray domestic abuse, hx of no Ruthann Cozza social history reviewed E&M reviewed - no change s Ruthann Cozza required social history E&M Patient has never smoked.; An na Cozza Patient has never used smokeless tobacco.; Passive Smoke: N; Alcohol Use: N; Drug Use: N; HIV/High Risk: N; Regular Exercise: Y; Hx Domestic Abuse: N; Jehovah'S Witness Affecting Care: N; drug use no Ruthann Cozza alcohol use no Ruthann Cozza seatbelt usage 75 % Ruthann Cozza exercise type Walk Ruthann Cozza Exercise counseling yes Ruthann Cozza physical exercise, 7 /wk Ruthann Cozza frequency, days per week caffeine use, average drinks 0 /d Yohana a Cozza per day passive cigarette smoke no Ruthannsheridan Miramontes za exposure chewing tobacco use Never Ruthann Cozza smoking status Never smoker Ruthann Cozza domestic abuse, hx of no Janice Gemini Betzaida cannon drug use no Janice Ortega alcohol use no Janice Ortega social history reviewed E&M reviewed - no change s Janice Ortega required seatbelt usage 75 % Janice Ortega exercise type Walk Janice Ortega Exercise counseling yes Janice Phillips er physical exercise, 7 /wk Janice tyson frequency, days per week caffeine use, average drinks 0 /d Cristela Singletary Foster per day passive cigarette smoke no Janice Gemini Jordan exposure chewing tobacco use Never Janice Gemini Leaht er smoking status Never smoker Janice Gemini Foster domestic abuse, hx of no Roya Chinchilla drug use no Roya Tammy Lambert alcohol use no Roya D Lambert social history reviewed E&M reviewed - no change s Roya D Lambert required social history E&M Patient has never smoked.; Re patricia Tammy Lambert Patient has never used smokeless tobacco.; Passive Smoke: N; Alcohol Use: N; Drug Use: N; HIV/High Risk: N; Regular Exercise: Y; Hx Domestic Abuse: N; Jehovah'S Witness Affecting Care: N; seatbelt usage 75 % Roya D Lambert exercise type Walk Roya D Lambert Exercise counseling yes Roya D Etti nger physical exercise, 7 /wk Roya D Ettin krista frequency, days per week caffeine use, average drinks 0 /d Thom na D Lambert per day passive cigarette smoke no Roya D Lambert exposure chewing tobacco use Never Roya D Etti nger smoking status Never smoker Roya D Lambert Depression Screening Negative Zion Nimichael tucker PHQ2 Questionairre Score 0 Zionbonilla sanchezkari domestic abuse, hx of no Slick Zoe Black drug use no Slick L Hubert alcohol use no Slick L Hubert social history reviewed E&M reviewed - no change s Slickmartell Gaspar required seatbelt usage 75 % Slick L Hubert exercise type Walk Slick Zoe Gaspar Exercise counseling yes Slick L Hubert physical exercise, 7 /wk Libra Gaspar frequency, days per week caffeine use, average drinks 0 /d Ves ta L Hubert per day passive cigarette smoke no Slick L Hubert exposure chewing tobacco use Never Slick L Hubert smoking status Never smoker Slick L Hubert PHQ9 Question Two score 0 Slick L Hubert PHQ9 Question One score 0 Slick L Hubert Depression Screening Positive Mee Natarajan PHQ2 Questionairre Score 6 Mee Natarajan In the past year, have you No Rosa Maria sa Edelmira been afraid of a partner, ex-partner, or cement tile maker because they made you feel emotionally or physically unsafe? Do you feel safe where you No Rosa Maria Hickey live? In the past 3 months, have No Rosa Maria sa Edelmira you spent more than 2 nights in a row in a custodial or fdc? How stressed are you? Very much Mey Aron caravlho How often do you see or talk Less than once a we ek Mey Edelmira to people that you care about and feel close to? Has lack of transportation No Rosa Maria Hickey kept you from medical appointments or from getting your medications? Other Insecurity (In the Mike says that he restrepo s Mey Edelmira past year, have you or been having trouble with someone you in your getting propane because of household had to go without) his adoptive grandd diana who lives in the home with her hisband and 2 brendadlern phone insecurity - in the No Davina Hickey past year, have you or someone in your household had to go without a phone? Medications or Medical Care No June Hickey Insecurity (In the past year, have you or someone you in your household had to go without) Investigations Chief Insecurity (In No Davina Hickey the past year, have you or someone you in your household had to go without) Clothing Insecurity (In the No June Hickey past year, have you or someone you in your household had to go without) Utility Insecurity (In the Yes Rosa Maria Hickey past year, have you or someone you in your household had to go without) What is your total monthly Refused Rosa Maria Hickey income social determinants of No Mey Jacques [facility], are you worried about losing your housing? HOUSING STATUS I have housing Mey Vierateri PHQ9 Question Two score 3 Mee Natarajan PHQ9 Question One score 3 Mee Natarajan alcohol use, number maximum Never=0 Griselda Natarajan drinks per occasion domestic abuse, hx of no Janice cannon drug use no Janice Ortega alcohol use no Janice Ortega social history reviewed E&M reviewed - no change s Janice Ortega required exercise type Walk Janice Ortega Exercise counseling yes Janice Phillips er physical exercise, 7 /wk Janice Vazquez r frequency, days per week caffeine use, average drinks 0 /d Cristela Ortega per day passive cigarette smoke no Janice Ortega exposure chewing tobacco use Never Janice Phillips er smoking status Never smoker Janice Ortega domestic abuse, hx of no Kerry Lianne leston drug use no Kerry Javon alcohol use no Kerry Javon social history reviewed E&M reviewed - no change s Kerry Javon required exercise type Walk Kerry Javon Exercise counseling yes Kerrydelmi dash physical exercise, 7 /wk Kerry Philip ton frequency, days per week caffeine use, average drinks 0 /d Ang gloria Javon per day passive cigarette smoke no Kerry Jay hernandez exposure chewing tobacco use Never Kerry Huddle ston smoking status Never smoker Kerry Javon domestic abuse, hx of no Mary Gr ogan drug use no Mary Fransico alcohol use no Mary Fransico social history reviewed E&M reviewed - no change s Mary Fransico required exercise type Walk Mary Fransico Exercise counseling yes Mary Grog an physical exercise, 7 /wk Mary Groga n frequency, days per week caffeine use, average drinks 0 /d Tif frederick Fransico per day passive cigarette smoke no Mary Fransico exposure chewing tobacco use Never Mary Grog an smoking status Never smoker Mary Fransico Depression Screening Negative Mee tucker Delgado PHQ2 Questionairre Score 1 Mee Davis Delgado PHQ9 Question One score 0 Mee Pickering bell Delgado PHQ9 Question Two score 1 Mee Pickering bell Delgado exercise type Walk Janice Gemini Foster Exercise counseling yes Janice Singletary Fost er physical exercise, 7 /wk Janice M Foste r frequency, days per week caffeine use, average drinks 0 /d Bec ky M Foster per day smoking status Never smoker Janice Gemini Foster domestic abuse, hx of no Janice Gemini Fo ster drug use no Janice M Foster alcohol use no Janice M Foster passive cigarette smoke no Janice M Foster exposure chewing tobacco use Never Janice M Fost er social history reviewed E&M reviewed - no change s Janice M Foster required exercise type Walk Pauline A Protsenk o physical exercise, 7 /wk Pauline A Prots enko frequency, days per week caffeine use, average drinks 0 /d Burns ya A Protsenko per day smoking status Never smoker Pauline A Protsenk o domestic abuse, hx of no Pauline A Pr otsenko drug use no Pauline A Protsenk o alcohol use no Pauline A Protsenk o passive cigarette smoke no Pauline A Protsenko exposure chewing tobacco use Never Pauline A Prot senko social history reviewed E&M reviewed - no change s Pauline A Protsenko required Exercise counseling yes Pauline A Prot senko Depression Screening Negative Zion tucker PHQ2 Questionairre Score 2 Zion weaver PHQ9 Question Two score 1 Nuha S mit PHQ9 Question One score 1 Nuha S mith exercise type Walk Nuha Daugherty Exercise counseling yes Nuha Daugherty physical exercise, 7 /wk Nuha Daugherty frequency, days per week caffeine use, average drinks 0 /d Bisi earlene Daugherty per day smoking status Never smoker Nuha Daugherty domestic abuse, hx of no Nuha Mcguire drug use no Nuha Daugherty alcohol use no Nuha Daugherty passive cigarette smoke no Nuha Mansfield mitradha exposure chewing tobacco use Never Nuha Daugherty social history reviewed E&M reviewed - no change s Nuha Daugherty required exercise type Walk Priscila Vazquez Exercise counseling yes Priscila escobedo physical exercise, 7 /wk Priscila tran frequency, days per week caffeine use, average drinks 0 /d Ariane rosalee Vazquez per day passive cigarette smoke no Priscila George exposure chewing tobacco use Never Priscila Brandon escobedo smoking status Never smoker Priscila Vazquez social history reviewed E&M reviewed - no change s Priscila Vazquez required Depression Screening Negative Olena Storm ramana PHQ2 Questionairre Score 2 Olena Ho drug use no Ruthann Cozza alcohol use no Ruthann Cozza exercise type Walk Ruthann Cozza Exercise counseling yes Ruthann Cozza physical exercise, 7 /wk Ruthann Cozza frequency, days per week caffeine use, average drinks 0 /d Yohana a Cozza per day passive cigarette smoke no Ruthann Coz za exposure chewing tobacco use Never Ruthann Cozza smoking status Never smoker Ruthann Cozza social history reviewed E&M reviewed - no change s Ruthann Cozza required PHQ9 Question Two score 1 Ruthann Coz za PHQ9 Question One score 1 Ruthann Coz za Depression Screening Negative Olena Ging ramana PHQ2 Questionairre Score 0 Olena [place] drug use no Ruthann Cozza alcohol use no Ruthann Cozza exercise type Walk Ruthann Cozza Exercise counseling yes Ruthann Cozza physical exercise, 7 /wk Ruthann Cozza frequency, days per week caffeine use, average drinks 0 /d Yohana a Cozza per day passive cigarette smoke no Ruthann Coz za exposure chewing tobacco use Never Ruthann Cozza smoking status Never smoker Ruthann Cozza social history reviewed E&M reviewed - no change s Ruthann Cozza required PHQ9 Question Two score 0 Ruthann Coz za PHQ9 Question One score 0 Ruthann Coz za exercise type Walk Priscila Vazquez Exercise counseling yes Priscila Taylor knraz physical exercise, 7 /wk Priscila tran frequency, days per week caffeine use, average drinks 0 /d Ariane erly Vazquez per day passive cigarette smoke no Priscila Vazquez exposure chewing tobacco use Never Priscila Faul kner smoking status Never smoker Priscila Vazquez social history reviewed E&M reviewed - no change s Priscila Vazquez required Depression Screening Negative Mey gamez MD PHQ2 Questionairre Score 0 Mey Garnica MD smoking status Never smoker Mey Garnica MD exercise type Walk France Gonzalez physical exercise, 7 /wk France Gonzalez frequency, days per week caffeine use, average drinks 0 /d Jod y Gonzalez per day passive cigarette smoke no France Gre er exposure chewing tobacco use Never Farnce Gonzalez social history reviewed E&M reviewed - no change s France Gonzalez required PHQ9 Question Two score 0 France Gre er PHQ9 Question One score 0 France Gre er Exercise counseling yes France Gonzalez Depression Screening Negative Mey gamez MD PHQ2 Questionairre Score 0 Mey Garnica MD exercise type Walk Nuha Daugherty physical exercise, 7 /wk Nuha Daugherty frequency, days per week caffeine use, average drinks 0 /d Bisi earlene Daugherty per day passive cigarette smoke no Nuha Shyla mith exposure chewing tobacco use Never Nuha Daugherty smoking status Never smoker Nuha Daugherty social history reviewed E&M reviewed - no change s Nuha Daugherty required PHQ9 Question Two score 0 Nuha S mith PHQ9 Question One score 0 Nuha S mith Exercise counseling yes Nuha Daugherty exercise type Walk Melissa Mango Exercise counseling yes Melissa Bu rr physical exercise, 7 /wk Melissa Bur r frequency, days per week caffeine use, average drinks 0 /d Gonzalo katelyn Mango per day passive cigarette smoke no Kassandr a Mango exposure chewing tobacco use Never Melissa Bu rr smoking status Never smoker Melissa Mango social history reviewed E&M reviewed - no change s Melissa Mango required Depression Screening Negative Mey gamez MD PHQ2 Questionairre Score 0 Mey Garnica MD exercise type Walk France Gonzalez physical exercise, 7 /wk France Gonzalez frequency, days per week caffeine use, average drinks 0 /d Jod y Gonzalez per day passive cigarette smoke no France Gre er exposure chewing tobacco use Never France Gonzalez smoking status Never smoker France Gonzalez social history E&M Patient has never smoked.; Gisele Gonzalez Patient has never used smokeless tobacco.; Passive Smoke: N; Alcohol Use: N; Drug Use: N; HIV/High Risk: N; Regular Exercise: Y; Hx Domestic Abuse: N; Jehovah'S Witness Affecting Care: N; social history reviewed E&M reviewed - no change s France Gonzalez required domestic abuse, hx of no France Gonzalez PHQ9 Question Two score 0 France Anton er PHQ9 Question One score 0 France Anton er Exercise counseling yes France Gonzalez Depression Screening Positive Ewelina Johnsonelisa car PHQ2 Questionairre Score 5 Ewelina Jyothi PHQ9 Question One score 2 Kassandr a Mango PHQ9 Question Two score 3 Kassandr a [place] caffeine use, average drinks 0 /d Gonzalo katelyn [place] per day exercise type Walk Melissa Mango physical exercise, 7 /wk Melissa Bur r frequency, days per week social history E&M Patient has never smoked.; Ka ssandra [place] Patient has never used smokeless tobacco.; Passive Smoke: N; Alcohol Use: N; Drug Use: N; HIV/High Risk: N; Regular Exercise: Y; drug use no Melissa Mango alcohol use no Melissa Mango passive cigarette smoke no Kassandr a Mango exposure chewing tobacco use Never Melissa Bu rr social history reviewed E&M reviewed - no change s Melissa [place] required smoking status Never smoker Melissa [place] VITAL SIGNS Date Observation Value Provider blood pressure, cuff size large Ruthann somers blood pressure, diastolic 78 mm[Hg] Ruthann somers blood pressure, systolic 124 mm[Hg] Ruthann painagua temperature E&M 97 [degF] Ruthann Brice temperature site oral Ruthann Brice respiratory rate E&M 20 /min Ruthann Brice oxygen saturation, oximetry 99 % Ruthann Brice pulse rate 63 /min Ruthann Brice weight E&M 201.8 lbs. Ruthann Brice height E&M 68 [in_i] Ruthann Brice pulse rate 60 /min Janice Ortega respiratory rate E&M 20 /min Janice Singletary [facility] ter blood pressure, diastolic 70 mm[Hg] Janice Singletary Salley blood pressure, systolic 98 mm[Hg] Janice Singletary Salley weight E&M 201.8 lbs. Janice M Salley height E&M 68 [in_i] Janice M Salley respiratory rate E&M 18 /min Priscila Lesly rosario pulse rate 70 /min Priscila Vazquez blood pressure, diastolic 80 mm[Hg] Ricardozoe yan Vazquez blood pressure, systolic 120 mm[Hg] Priscilaandrae Vazquez temperature E&M 97.7 [degF] Priscila Vazquez weight E&M 209.4 lbs. Priscila Vazquez height E&M 68 [in_i] Priscila Vazquez oxygen saturation, oximetry 16 % Nati a A Protsenko blood pressure, diastolic 70 mm[Hg] Pauline A Protsenko blood pressure, systolic 126 mm[Hg] Pauline A Protsenko temperature E&M 98.3 [degF] Pauline A Protsenk o respiratory rate E&M 96 /min Pauline A Pro tsenko pulse rate 68 /min Pauline A Protsenk o weight E&M 207.8 lbs. Pauline A Protsenk o blood pressure, cuff size regular Pauline A Protsenko temperature site oral Pauline A Protsen ko height E&M 68 [in_i] Pauline A Protsenk o respiratory rate E&M 16 /min Pauline Sheridan Pro tsenko blood pressure, diastolic 92 mm[Hg] Pauline A Protsenko blood pressure, systolic 162 mm[Hg] Pauline A Protsenko temperature E&M 97.8 [degF] Pauline A Protsenk o pulse rate 57 /min Pauline A Protsenk o oxygen saturation, oximetry 95 % Nati a A Protsenko blood pressure, cuff size large Pauline A Protsenko weight E&M 209.6 lbs. Pauline A Protsenk o temperature site oral Pauline A Protsen ko height E&M 68 [in_i] Pauline A Protsenk o blood pressure, cuff size regular Avelino Laynegan blood pressure, diastolic 80 mm[Hg] Zionbonilla Parker blood pressure, systolic 170 mm[Hg] Zion weaver respiratory rate E&M 18 /min Mary Xi sukhwinder pulse rate 82 /min Mary Fransico weight E&M 214.38 lbs. Mary Fransico height E&M 68 [in_i] Mary Fransico blood pressure, cuff size large Ruthann Gisselle ozza blood pressure, diastolic 88 mm[Hg] Ruthann C ozza blood pressure, systolic 140 mm[Hg] Ruthann rodriguesza respiratory rate E&M 20 /min Ruthann Zhenga temperature E&M 98.5 [degF] Ruthannsheridan Zhenga temperature site oral Ruthannsheridan Zhenga oxygen saturation, oximetry 97 % Ruthann Cozza pulse rate 73 /min Ruthann Cozza weight E&M 209.8 lbs. Ruthann Marcea height E&M 68 [in_i] Ruthann Zhenga blood pressure, cuff size regular Jalen cordova blood pressure, diastolic 80 mm[Hg] Jalen cordova blood pressure, systolic 152 mm[Hg] Jalen sher respiratory rate E&M 18 /min Jalen Lane oxygen saturation, oximetry 98 % Jalen Lane pulse rate 52 /min Jalen Lane temperature site temporal Jalen Lane temperature E&M 97.8 [degF] Jalen Lane weight E&M 218.[address] height E&M 68 [in_i] Jalen Lane pulse rate 76 /min Janice M Jordan respiratory rate E&M 20 /min Janice Gemini Leah duran blood pressure, diastolic 84 mm[Hg] Janice Singletary Jordan blood pressure, systolic 152 mm[Hg] Janice M Jordan weight E&M 209.8 lbs. Janice M Jordan height E&M 68 [in_i] Janice Gemini Foster pulse rate, standing 51 /min Ruthann Coashelya blood pressure, diastolic, standing 84 mm[Hg] Ruthann Coashelya blood pressure, systolic, standing 132 mm[Hg] Ruthann Cozza pulse rate, sitting 49 /min Ruthann Coashelya blood pressure, diastolic, sitting 80 mm[Hg] Ruthann Cozza blood pressure, systolic, sitting 130 mm[Hg] Ruthann Brice pulse rate, supine, right 45 /min Ruthann Pitts ozza blood pressure, diastolic, supine, right 80 Ruthann Brice arm blood pressure, systolic, supine, r arm 132 Ruthann Brice temperature E&M 97.6 [degF] Ruthann Marcea temperature site oral Ruthann Yuniel blood pressure, cuff size large Ruthann somers blood pressure, diastolic 80 mm[Hg] Ruthann C ozza blood pressure, systolic 140 mm[Hg] Olena Georgia respiratory rate E&M 20 /min Ruthann Brice oxygen saturation, oximetry 97 % Ruthann Brice pulse rate 52 /min Ruthann Brice weight E&M 215.6 lbs. Ruthann Brice height E&M 68 [in_i] Ruthann Brice blood pressure, cuff size large Ruthann somers blood pressure, diastolic 76 mm[Hg] Ruthann somers blood pressure, systolic 140 mm[Hg] Olena [place] temperature site oral Ruthann Brice temperature E&M 97.6 [degF] Ruthann Zhenga respiratory rate E&M 16 /min Ruthann Brice oxygen saturation, oximetry 98 % Ruthann Brice pulse rate 54 /min Ruthann Zhenga weight E&M 215.6 lbs. Ruthann Coashelya height E&M 68 [in_i] Ruthann Coashelya respiratory rate E&M 16 /min Pauline A Pro tsenko blood pressure, cuff size regular Pauline A Protsenko blood pressure, diastolic 68 mm[Hg] Pauline A Protsenko blood pressure, systolic 122 mm[Hg] Pauline A Protsenko temperature site oral Pauline A Protsen ko temperature E&M 97.8 [degF] Pauline A Protsenk o pulse rate 57 /min Pauline A Protsenk o oxygen saturation, oximetry 97 % Nati a A Protsenko weight E&M 215.8 lbs. Pauline A Protsenk o height E&M 68 [in_i] Pauline A Protsenk o blood pressure, cuff size regular Avelino Bateman blood pressure, diastolic 78 mm[Hg] Avelino heredia Fransico blood pressure, systolic 136 mm[Hg] Mee Davis Delgado pulse rate 78 /min Mary Laynegan respiratory rate E&M 18 /min Mary Layne sukhwinder temperature site oral Mary Fransico temperature E&M 97.8 [degF] Mary Fransico weight E&M 218 lbs. Mee Vidal ke height E&M 68 [in_i] Mary Fransico respiratory rate E&M 16 /min Pauline A Pro tsenko blood pressure, cuff size regular Pauline A Protsenko blood pressure, diastolic 74 mm[Hg] Pauline A Protsenko blood pressure, systolic 126 mm[Hg] Pauline A Protsenko temperature E&M 97.8 [degF] Pauline A Protsenk o temperature site oral Pauline A Protsen ko oxygen saturation, oximetry 92 % Nati a A Protsenko pulse rate 78 /min Pauline A Protsenk o height E&M 68 [in_i] Pauline A Protsenk o respiratory rate E&M 20 /min Pauline Swartz Pro tsenko blood pressure, diastolic 68 mm[Hg] Pauline A Protsenko blood pressure, systolic 122 mm[Hg] Pauline A Protsenko temperature site oral Pauline Sheridan Protsen ko temperature E&M 98.0 [degF] Pauline A Protsenk o pulse rate 64 /min Pauline A Protsenk o oxygen saturation, oximetry 95 % Nati Swartz Protsenko weight E&M 218.6 lbs. Pauline Sheridan Protsenk o blood pressure, cuff size regular Pauline Swartz Protsenko height E&M 68 [in_i] Pauline Sheridan Protsenk o pulse rate 76 /min Mary Laynegan respiratory rate E&M 18 /min Mayrfrederick pretty blood pressure, diastolic 82 mm[Hg] Avelino Laynegan blood pressure, systolic 126 mm[Hg] Mary Laynegan temperature site oral Mary Fransico temperature E&M 97.8 [degF] Mary Laynegan weight E&M 220.13 lbs. Mary Laynegan height E&M 68 [in_i] Mary Fransico blood pressure, diastolic 82 mm[Hg] Pauline Sheridan Protsenko blood pressure, systolic 130 mm[Hg] Pauline A Protsenko respiratory rate E&M 20 /min Pauline Sheridan Pro tsenko oxygen saturation, oximetry 97 % Nati Swartz Protsenko pulse rate 74 /min Pauline A Protsenk o blood pressure, cuff size regular Pauline A Protsenko temperature site temporal Pauline A Protsen ko temperature E&M 97.3 [degF] Pauline A Protsenk o weight E&M 213.8 lbs. Pauline A Protsenk o height E&M 68 [in_i] Pauline A Protsenk o blood pressure, cuff size regular Jalen Gerber art blood pressure, diastolic 72 mm[Hg] Jalen Gerber art blood pressure, systolic 134 mm[Hg] Mee Davis Delgado respiratory rate E&M 18 /min Jalen Lane oxygen saturation, oximetry 97 % Jalen Lane pulse rate 70 /min Jalen Lane temperature site temporal Jalen Lane temperature E&M 97.5 [degF] Jalen Lane weight E&M 215.[address] height E&M 68 [in_i] Jalen Lane pulse rate 57 /min Janice Gemini Jordan oxygen saturation, oximetry 98 % Ilan heredia Gemini Jordan respiratory rate E&M 20 /min Janice duran blood pressure, diastolic 80 mm[Hg] Janice Gemini Jordan blood pressure, systolic 134 mm[Hg] Janice Gemini Jordan weight E&M 213.8 lbs. Janice Ortega height E&M 68 [in_i] Janice Ortega respiratory rate E&M 16 /min Ruthann Brice pulse rate 78 /min Ruthann Brice blood pressure, cuff size large Ruthann somers blood pressure, diastolic 78 mm[Hg] Ruthann somers blood pressure, systolic 136 mm[Hg] Ruthann paniagua temperature E&M 97.5 [degF] Ruthann Brice temperature site temporal Ruthann Brice weight E&M 213.6 lbs. Ruthann Brice height E&M 68 [in_i] Janice Ortega blood pressure, cuff size large Ruthann somers blood pressure, diastolic 86 mm[Hg] Ruthann somers blood pressure, systolic 132 mm[Hg] Ruthann paniagua respiratory rate E&M 12 /min Ruthann Brice temperature site temporal Ruthann Brice temperature E&M 97.8 [degF] Ruthann Brice pulse rate 56 /min Ruthann Brice oxygen saturation, oximetry 97 % Ruthann Brice weight E&M 210 lbs. Ruthann Brice height E&M 68 [in_i] Ruthann Brice blood pressure, cuff size large Ruthann somers blood pressure, diastolic 88 mm[Hg] Ruthann somers blood pressure, systolic 144 mm[Hg] Ruthann paniagua respiratory rate E&M 20 /min Ruthann Brice oxygen saturation, oximetry 98 % Ruthann Brice pulse rate 65 /min Ruthann Brice temperature site temporal Ruthann Brice temperature E&M 97.7 [degF] Ruthann Brice weight E&M 210 lbs. Ruthann Brice height E&M 68 [in_i] Ruthann Brice oxygen saturation, oximetry 98 % [facility] Gemini Salley pulse rate 56 /min [facility] respiratory rate E&M 18 /min [facility] blood pressure, diastolic 78 mm[Hg] [facility] blood pressure, systolic 122 mm[Hg] [facility] temperature E&M 97.5 [degF] Janice Ortega weight E&M 205.2 lbs. Janice Ortega height E&M 68 [in_i] Janice Ortega GOALS Date Category Name - UNK Maintain satisfaction with current level of mood - UNK Decreased Frequency of UTIs - UNK Maintain Blood Pressure within Normal Ra nge HEALTH CONCERNS Condition Status Date Provider Notes History of frequent urinary tract infections active 6 Hypertension active
--- NOTE | 2021-12-01 16:44 | ECG_ITS ---
[facility] Test Date: 2021-12-01 Pat Name: Mike Silva Department: Room: 277 Gender: Male Assistant Dean: : 1945 Requested By: Elvis Pickering Order Number: [id number] Cheko MD: Toro Fonseca M.D. Measurements Intervals [place] Rate: 44 P: 30 SD: 162 QRS: -12 QRSD: 89 T: 38 QT: 427 QTc: 366 Interpretive Statements SINUS BRADYCARDIA WITH OCCASIONAL SUPRAVENTRICULAR PREMATURE COMPLEXES Compared to ECG 12/01/2021 12:41:49 No significant changes Electronically Signed On 12-01-2021 17:41:27 CDT by Toro Fonseca M.D. [email or web address]
--- NOTE | 2021-12-01 19:16 | PC.NURSE ---
Bedside report with TIGRE Frye.
[2021-12-01 20:01] LABS: Troponin 5 6HR 9.34 ng/L (0-15)
[2021-12-01] MEDS: mirtazapine 15 mg Tablet PO (21:51)
[2021-12-01] MEDS: ALPRAZolam 0.5 mg Tablet PO (21:52)
--- NOTE | 2021-12-01 21:53 | PC.NURSE ---
Patient refused Miralax and stated I never get constipated. Patient answers correct to person, place, and time, however seems to need re-educated on the same things frequently and seems to get medications mixed up and seems to be forgetful. Bed alarm is set.
[2021-12-02] VITALS: BP 116/58; PULSE 49; RESP 22; TEMP 36.4; O2SAT 93
[2021-12-02 03:07] LABS: Basophils % 0.2 %; Eosinophils # 0.1 10^3/uL (0.0-0.8); Eosinophils % 1.4 %; Hematocrit 38.8 % (42.0-52.0); Hemoglobin 12.8 g/dL (11.7-16.6); Lymphocytes # 1.3 10^3/uL (0.8-4.8); Lymphocytes % 30.6 %; Mean Corpuscular Hemoglobin 31.8 pg (28.0-34.0); Mean Corpuscular Volume 96.5 fl (80-94); Mean Platelet Volume 8.7 fL (7.4-10.4); Monocytes # 0.3 10^3/uL (0.2-0.9); Monocytes % 7.6 %; Nucleated Red Blood Cells % 0 %; Platelet Count 159 10^3/cmm (130-400); Red Blood Count 4.02 10^6/uL (4.1-5.3); Red Cell Distribution Width 13.2 % (12.1-15.1); White Blood Count 4.3 10^3/uL (4.0-10.0)
[2021-12-02 03:21] LABS: Partial Thromboplastin Time 28.9 SECONDS (23.9-36.7)
[2021-12-02 03:35] LABS: Anion Gap 12.2 (5-19); Blood Urea Nitrogen 23 mg/dL (8-23); Calcium 9.9 mg/dL (8.5-10.5); Carbon Dioxide 28 mmol/L (22-29); Chloride 106 mmol/L (98-107); Glucose 116 mg/dL (65-115); Magnesium 1.4 mg/dL (1.7-2.3); Osmolality Calculated 299 mOsm/kg (285-295); Phosphorus 3.3 mg/dL (2.5-4.5); Potassium 4.2 mmol/L (3.5-5.1); Sodium 142 mmol/L (136-145)
[2021-12-02 04:00] VITALS: BP 131/66; PULSE 47; RESP 20; TEMP 36.7; O2SAT 94
[2021-12-02 04:44] VITALS: PULSE 45
[2021-12-02 04:55] VITALS: BP 131/66; PULSE 47; RESP 20; TEMP 36.7; O2SAT 94
[2021-12-02 08:00] VITALS: BP 126/71; PULSE 44; RESP 20; TEMP 36.6; O2SAT 94
--- NOTE | 2021-12-02 08:03 | USCV_ITS ---
Mike Silva Age: 76 Gender: M : 1945 Exam Date: 12/02/2021 10:10 Ordering Phys: Elias Ramos MD Technologist: VIVIEN Exam Location: [facility] [place] Indication: SHORTNESS OF BREATH BP: 126 / 71 HR: 55 Rhythm: Sinus Technical Quality: Adequate MEASUREMENTS (Male / Female) Normal Values 2D ECHO LV Diastolic Diameter PLAX 4.7 cm 4.2 - 5.9 / 3.9 - 5.3 cm LV Systolic Diameter PLAX 3.2 cm IVS Diastolic Thickness 1.7 cm 0.6 - 1.0 / 0.6 - 0.9 cm IVS Systolic Thickness 2.3 cm LVPW Diastolic Thickness 1.9 cm 0.6 - 1.0 / 0.6 - 0.9 cm LVPW Systolic Thickness 2.6 cm LVOT Diameter 2.0 cm LV Ejection Fraction 2D Teich 60.9 % LV Ejection Fraction MOD 2C 56.4 % LV Ejection Fraction 2C AL 59.3 % LA Diameter 4.3 cm LA Width 3.1 cm LA Height 5.7 cm RA Width 3.7 cm RA Height 5.4 cm Aorta at Sinotubular Diameter 2.9 cm IVC Diameter 1.8 cm M-MODE MV E Point Septal Separation 2.1 cm DOPPLER AV Peak Velocity 178.7 cm/s LVOT Peak Velocity 156.0 cm/s AV Area Cont Eq vti 3.0 cm squared AV Area Cont Eq pk 2.8 cm squared MV Peak Velocity 98.0 cm/s MV Area PHT 2.7 cm squared Mitral E to A Ratio 1.0 MV E' Velocity 52.0 cm/s Mitral E to MV E' Ratio 10.7 Mitral E to LV E' Lateral Ratio 8.8 Mitral E to LV E' Septal Ratio 13.7 TR Peak Velocity 199.3 cm/s TR Peak Gradient 15.9 mmHg TR Mean Velocity 171.8 cm/s TR Mean Gradient 12.7 mmHg TR Velocity Time Integral 59.4 cm TV Peak E Velocity 49.0 cm/s Right Atrial Pressure 3.0 mmHg Pulmonary Artery Systolic Pressu 18.9 mmHg PV Peak Velocity 118.0 cm/s RV Acceleration Time 0.1 s RV Ejection Time 0.3 s RV AcT/ET 0.4 FINDINGS Left Ventricle Normal left ventricular size and systolic function, EF 56 %. Mild left ventricular hypertrophy. No regional wall motion abnormalities. Right Ventricle The right ventricle is normal in size and function. Right Atrium The right atrium is normal in size. Left Atrium The left atrium, upper limit of normal size Mitral Valve No significant valvular lesions Aortic Valve Some features of aortic valve sclerosis Tricuspid Valve No significant valvular lesions Pulmonic Valve No significant valvular lesions Pericardium No pericardial effusion. Aorta Normal ascending aorta dimension. IVC The inferior vena cava appears normal. CONCLUSIONS Normal left ventricular size and systolic function, EF 56 %. Mild left ventricular hypertrophy. No regional wall motion abnormalities. Some features of aortic valve sclerosis. The left atrium, upper limit of normal size. No significant stenotic or regurgitant lesions There is no pericardial effusion. Compared to the study from 12/07/2020, there may not be significant change Dr Earle Nielsen MD FAC (Electronically Signed) Final Date: 02 December 2021 13:07 S
[2021-12-02] MEDS: pantoprazole DR 40 mg Tablet PO (08:59)
[2021-12-02] MEDS: lisinopril 20 mg Tablet PO (08:59)
[2021-12-02] MEDS: amlodipine 5 mg Tablet PO (08:59)
[2021-12-02] MEDS: ascorbic acid 500 mg Tablet 1000 MG PO (08:59)
[2021-12-02] MEDS: magnesium sulfate premix 4 GM/100 ML PREMIX IV (08:59)
[2021-12-02] MEDS: aspirin 81 mg EC Tablet PO (09:04)
--- NOTE | 2021-12-02 09:12 | P.CONIM_ITS ---
Providers/Reason For Consult Consulting Physician/Specialty*: TIMMY Nielsen MD/cardiology Reason for Consult*: Patient with atrial fibrillation/bradycardia Requesting Physician: Dr. Ramos Attending Physician: Elias Ramos MD Primary Care Provider: Mee Natarajan MD History of Present Illness History of Present Illness Mike Silva is a 76 year old male is admitted to hospital with complaints of chest pain and bradycardia. He has a history of atrial fibrillation. Cardiology consult is requested for further cardiac evaluation recommendations. This patient extremely poor historian. Information is partly from the patient and also from the medical records. According to the patient, he has very poor recollection of events. He was having pain in the right shoulder area, right side of the chest and also in the back. However he was complaining of pain in the center of the chest in the emergency room. But now he denies it. Patient also states that he might have had a fall at home hitting his right shoulder on to the dresser, as per his son, which the patient does not recall. Apparently he has a history of chest pain off and on for the last few years. He had multiple hospital admissions and ER visits during the last few years for various complaints including recurrent UTI/urosepsis, altered mental status, possible CVA, suicidal ideation, shoulder pain, back pain, etc. According to him, he had a stress test many years ago and was reportedly normal. He never had any cardiac catheterization as far as he can recall. He was found to have heart rate in the 30s on the monitor. He was taking metoprolol 50 mg p.o. twice daily. Has no fever or chills. No cough. Review of Systems Narrative: CONSTITUTIONAL: No fever or chills. EYES: No blurring of vision or other visual disturbances lately. ENT: No hoarseness of voice, auditory disturbances or sore throat. CARDIOVASCULAR: As mentioned above. RESPIRATORY: No significant cough. GASTROINTESTINAL: No hematemesis or melena. GENITOURINARY: Has recurrent UTI. 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 INTEGUMENTARY: No skin rashes or history of skin cancer. NEURO: Questionable history of CVA in the past causing facial muscle weakness PSYCHIATRIC: History of depressive illness and suicidal ideation HEMATOLOGIC: No bleeding disorders or significant anemia. ENDOCRINE: No history of polyuria or polydipsia. MUSCULOSKELETAL: Chronic back pains and shoulder pains ALLERGY/IMMUNOLOGY: As mentioned above. Medications/Allergies Home Medications Medication Instructions Recorded Confirmed Last Taken Type ascorbic acid (vitamin C) 1,000 mg 1 g PO BID 03/27/21 12/01/21 12/01/21 History tablet fluvoxamine 50 mg tablet 50 mg PO BID 05/19/21 12/01/21 12/01/21 History hydrocodone 10 mg-acetaminophen 1 - 2 tab PO QID PRN Pain 05/19/21 12/01/21 12/01/21 History 325 mg tablet lisinopril 20 mg tablet 20 mg PO DAILY #20 tabs 07/26/21 12/01/21 12/01/21 Rx AFO to the Left #1 ea 08/05/21 12/01/21 Unknown Rx hydrochlorothiazide 12.5 mg tablet 12.5 mg PO QAM blood pressure and 09/25/21 12/01/21 12/01/21 Rx edema #30 tabs alprazolam 1 mg tablet 1 mg PO BID PRN anxiety #60 tabs 10/07/21 12/01/21 12/01/21 Rx amlodipine 5 mg tablet 5 mg PO DAILY 11/05/21 12/01/21 12/01/21 History aspirin 81 mg tablet,delayed 81 mg PO DAILY 12/01/21 12/01/21 12/01/21 History release meloxicam 15 mg tablet 15 mg PO DAILY PRN Pain 12/01/21 12/01/21 Unknown History methenamine hippurate 1 gram tablet 1 g PO BID 12/01/21 12/01/21 12/01/21 History metoprolol tartrate 25 mg tablet 50 mg PO BID 12/01/21 12/01/21 12/01/21 History mirtazapine 15 mg tablet 15 mg PO BEDTIME 12/01/21 12/01/21 11/30/21 History [id number] acid-vit 1 tab PO DAILY 12/01/21 12/01/21 12/01/21 History K-lycop 400 mcg-20 mcg-370 mcg tablet (Men's 50 Plus Multivitamin) omeprazole 20 mg capsule,delayed 20 mg PO DAILY PRN Acid Reflux 12/01/21 12/01/21 11/30/21 History release polyethylene glycol 3350 17 gram 17 g PO BEDTIME PRN Constipation 12/01/21 12/01/21 Unknown History oral powder packet (Miralax) Allergies Allergy/AdvReac Type Severity Reaction Status Date / Time Penicillins Allergy Intermediate rash Verified 12/01/21 12:43 sulfamethoxazole Allergy Hallucianti Verified 12/01/21 12:43 [From Bactrim] ons trimethoprim [From Bactrim] Allergy Hallucianti Verified 12/01/21 12:43 ons Current Medications Generic Name Dose Route Start Last Admin Trade Name Freq PRN Reason Stop Dose Admin Alprazolam 0.5 mg 12/01/21 15:52 12/01/21 21:52 Alprazolam 0.5 Mg Tablet PO 0.5 mg BID PRN Administration anxiety Amlodipine Besylate 5 mg 12/02/21 09:00 12/02/21 08:59 Amlodipine 5 Mg Tablet PO 5 mg DAILY ILIANA Administration Ascorbic Acid 1,000 mg 12/02/21 09:00 12/02/21 08:59 Ascorbic Acid 500 Mg Tablet PO 1,000 mg BID ILIANA Administration Aspirin 81 mg 12/02/21 09:00 12/02/21 09:04 Aspirin 81 Mg Ec Tablet PO 81 mg DAILY ILIANA Administration Magnesium Sulfate 4 gm in 100 mls @ 50 mls/hr 12/02/21 09:00 12/02/21 08:59 Magnesium Sulfate Premix IV 12/02/21 10:59 50 mls/hr ONCE ONE Administration Lisinopril 20 mg 12/02/21 09:00 12/02/21 08:59 Lisinopril 20 Mg Tablet PO 20 mg DAILY ILIANA Administration Mirtazapine 15 mg 12/01/21 21:00 12/01/21 21:51 Mirtazapine 15 Mg Tablet PO 15 mg BEDTIME ILIANA Administration Non-Formulary Medication 1 gm 12/01/21 18:00 12/01/21 17:23 Methenamine Hippurate PO Not Given BID ILIANA Pantoprazole Sodium 40 mg 12/02/21 09:00 12/02/21 08:[address] 40 Mg Tablet PO 40 mg DAILY ILIANA Administration Polyethylene Glycol 17 gm 12/01/21 21:00 12/01/21 21:51 Polyethylene Glycol 3350 Pkt 17 Gm PO Not Given BEDTIME ILIANA PFSH Acute PFSH: Medical History Anxiety Basal cell carcinoma, 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) Left, s/p Mohs Chronic kidney disease, stage III (moderate) COVID-19 (10/16/20) Depression GERD (gastroesophageal reflux disease) History of cardiac arrhythmia Has has documented transient atrial fibrillation/flutter with rapid ventricular response with spontaneous conversion to sinus rhythm in 2013 post op, again 2017 during acute illness History of nonmelanoma skin cancer Hyperparathyroidism (04/08/20) Hypertension Meatal stenosis Obesity (BMI 30.0-34.9) Osteoarthritis involving multiple joints on both sides of body Neck, back & rt knee and rt AC joint Postprocedural urethral stricture Recurrent UTI Squamous cell carcinoma of penis TIA (transient ischemic attack) Surgical History History of excision of mass (07/2015) Penile lesion, by Dr Encinas. Procedure done: 1. Dorsal relaxing incision to expose penile mass 2. Wide excision of invasive appearing penile lesion consistent grossly with squamous cell carcinoma. Involving the glans penis and incompletely resected. Squamous cell carcinoma History of knee surgery (10/2011) Dr Andres. Right knee arthroscopy, chondroplasty patella, medial femoral condyle, lateral femoral condyle and mild debridement of the posterior horn lateral meniscus. History of laparoscopic cholecystectomy History of repair of right rotator cuff (04/2020) Dr Wolfe, Arthroscopic repair right rotator cuff, limited debridement including biceps tenotomy, labral debridement, subacromial bursectomy, and subacromial decompression History of surgery on upper extremity Left, s/p fracture S/P Mohs surgery for basal cell carcinoma Left arm 10/2021 Back planned 10/2021 Family History Mother , in her 80's Stroke Father , in his 60's Alcoholic Denies family history of Anesthesia complication Bleeding disorder Social History Smoking and tobacco status: never smoked Second hand smoke exposure: No Alcohol intake: never Adopted: No Caregiver/support person: Yes Lives independently: Yes Household members: family and other Details: Son, grandson at house Housing: House Marital status: / Highest education level completed: High School Graduate service: No Current occupational status: retired Sexually active: No Current gender identity: Male Tri/Sabianist: [employer] Special tri needs: No Vitals/I&O/Wt Last Vital Signs Temp 97.9 F 12/02/21 08:00 Pulse 44 L 12/02/21 08:00 Resp 20 H 12/02/21 08:00 BP 126/71 12/02/21 08:00 Pulse Ox 94 12/02/21 08:00 O2 Del Method 12/02/21 08:00 12/01/21 12/02/21 12/02/21 22:59 06:59 14:59 Output Total 200 / 200 650 / 850 Balance -200 / -200 -650 / -850 Weight last 48 hrs Weight 220 lb Physical Exam Narrative: GENERAL: The patient is alert and oriented times three. Not in any acute distress. HEENT: No significant pallor, icterus or lymphadenopathy.Oral cavity: There are no mucous membrane lesions. NECK: Trachea appears to be central. No masses noted. No JVD or thyromegaly a ppreciated. RESPIRATORY: Chest is symmetrical. No intercostals muscle retraction or any accessory muscle activation. There is no chest wall tenderness. Breath sounds are heard bilaterally. No rales or rhonchi heard. No evidence of any consolidation. BREASTS: Deferred. HEART: The heart sounds are normal. No S3 or S4. No significant murmurs. No pericardial rub ABDOMEN: No vessel pulsations or distention. No tenderness. No organomegaly appreciated. Bowel sounds are normally heard. : Deferred. RECTAL: Deferred. LYMPHATIC: No lymphadenopathy noted in the neck. EXTREMITIES: No edema or cyanosis. No clubbing. MUSCULOSKELETAL: No acute joint deformities or swelling SKIN: There are no significant rashes or ecchymosis NEUROPSYCHIATRIC: The patient is alert and oriented x3. Appears to be in a good mood. No tremors or rigidity noted. Data : 12/02/21 02:52 12/02/21 02:52 Other Labs: Laboratory Last Values WBC 4.3 10^3/uL (4.0-10.0) 12/02/21 02:52 RBC 4.02 10^6/uL (4.1-5.3) L 12/02/21 02:52 Hgb 12.8 g/dL (11.7-16.6) 12/02/21 02:52 Hct 38.8 % (42.0-52.0) L 12/02/21 02:52 MCV 96.5 fl (80-94) H 12/02/21 02:52 MCH 31.8 pg (28.0-34.0) 12/02/21 02:52 MCHC 33.0 g/dL (30.0-36.0) 12/02/21 02:52 RDW 13.2 % (12.1-15.1) 12/02/21 02:52 Plt Count 159 10^3/cmm (130-400) D 12/02/21 02:52 MPV 8.7 fL (7.4-10.4) 12/02/21 02:52 Neut % (Auto) 60.0 % 12/02/21 02:52 Lymph % (Auto) 30.6 % 12/02/21 02:52 [place] % (Auto) 7.6 % 12/02/21 02:52 Eos % (Auto) 1.4 % 12/02/21 02:52 Baso % (Auto) 0.2 % 12/02/21 02:52 Neut # (Auto) 2.60 10^3/uL (1.8-7.7) 12/02/21 02:52 Lymph # (Auto) 1.3 10^3/uL (0.8-4.8) 12/02/21 02:52 [place] # (Auto) 0.3 10^3/uL (0.2-0.9) 12/02/21 02:52 Eos # (Auto) 0.1 10^3/uL (0.0-0.8) 12/02/21 02:52 Baso # (Auto) 0.0 10^3/uL (0.0-0.1) 12/02/21 02:52 Nucleated RBC % (auto) 0 % 12/02/21 02:52 Nucleated RBCs # 0.0 /100WBC 12/02/21 02:52 PT 14.50 SECONDS (12.1-14.9) 12/02/21 02:52 INR 1.10 (0.8-1.2) 12/02/21 02:52 APTT 28.9 SECONDS (23.9-36.7) 12/02/21 02:52 Sodium 142 mmol/L (136-145) 12/02/21 02:52 Potassium 4.2 mmol/L (3.5-5.1) 12/02/21 02:52 Chloride 106 mmol/L (98-107) 12/02/21 02:52 Carbon Dioxide 28 mmol/L (22-29) 12/02/21 02:52 Anion Gap 12.2 (5-19) 12/02/21 02:52 BUN 23 mg/dL (8-23) 12/02/21 02:52 Creatinine 1.2 mg/dL (0.7-1.2) 12/02/21 02:52 GFR Calculation Not Reportable 12/02/21 02:52 Glucose 116 mg/dL (65-115) H 12/02/21 02:52 Calculated Osmolality 299 mOsm/kg (285-295) H 12/02/21 02:52 Calcium 9.9 mg/dL (8.5-10.5) 12/02/21 02:52 Phosphorus 3.3 mg/dL (2.5-4.5) 12/02/21 02:52 Magnesium 1.4 mg/dL (1.7-2.3) L 12/02/21 02:52 Total Bilirubin 0.9 mg/dL (0.15-1.2) 12/01/21 11:10 AST 16 U/L (0-40) 12/01/21 11:10 ALT 14 U/L (0-41) 12/01/21 11:10 Alkaline Phosphatase 76 U/L (40-130) 12/01/21 11:10 Troponin T Baseline 15 ng/L (0-15) 12/01/21 11:10 Troponin T 120 Minute 11.22 ng/L (0-15) 12/01/21 13:22 Delta Troponin T 3.78 ABS# (0-10) 12/01/21 13:22 Troponin T Hi Sens 6Hr 9.34 ng/L (0-15) 12/01/21 18:24 Troponin T Hi Sens 6Hr Delta -5.66 ng/L (0-12) L 12/01/21 18:24 Total Protein 6.4 g/dL (6.6-8.7) L 12/01/21 11:10 Albumin 4.2 g/dL (3.5-5.2) 12/01/21 11:10 Globulin 2.2 g/dL (1.3-4.6) 12/01/21 11:10 TSH 1.00 uIU/mL (0.27-4.20) 12/02/21 02:52 Echo: My impression: Echocardiogram from 12/07/2020 LV systolic function is normal with EF of 55-60% ?Diastolic function is normal ?No significant valvular heart disease ?Compared to prior echocardiogram from 03/01/2017, no significant ?changes are noted EKG 1: My Interpretation: Sinus bradycardia with a frequent PACs. Heart rate of 44 bpm. Normal NM and QRS duration. EKG computer-generated impression: Chest X-Ray 12/01/21 11:48 IMPRESSION: Mild cardiomegaly with no acute chest abnormality. A&P Assessment and plan (1) Bradycardia: Patient's heart rate is in the 60s and 70s at this point. He had some episodes of bradycardia to 30s yesterday. Part of it could be related to the metoprolol. Only the metoprolol is on hold. We may restart the metoprolol at a lower dose, if the heart rate to keep going. Patient may have an underlying sinus node dysfunction. (2) Chest pain: The etiology of the chest pain is not known at this point. Possibility of him having underlying coronary artery disease causing the pain is a consideration. His EKG is unremarkable. If the heart rate is acceptable, we may go ahead and do a Myocardial perfusion imaging tomorrow to further evaluate his symptoms. For that and do a limited 2D echocardiogram to evaluate LV function. The chest x-ray shows cardiomegaly. LV ejection fraction was within normal limits, a year ago. (3) Atrial fibrillation: Patient may be closely monitored on telemetry. If there is no evidence of ischemia, we may consider starting the patient on propafenone tomorrow. (4) TIA (transient ischemic attack): May continue on the anticoagulation. (5) Chronic kidney disease, stage III (moderate): This needs to be closely monitored. (6) Recurrent UTI: He seems to have no evidence of any UTI. (7) Hypertension: Patient's blood pressure is a stage II. The antihypertensive medications need to be optimized. Qualifiers: Hypertension type: primary hypertension Qualified Code(s): I10 - Essential (primary) hypertension Plan Based on the patient's clinical progress, further recommendations will be made. At this point, there is no strong indication for a permanent pacemaker plantation. We will continue to monitor him on telemetry. Consult Attestations Medical Necessity Statement: Patient requires continued hospital stay for close monitoring and further management Coding Level of Care Code Acute Thread Pulling Machine Attendant for Chg Fwd History Expanded Problem Focused Exam Detailed Diagnoses Bradycardia R00.1 Chest pain R07.9 Atrial fibrillation I48.91 TIA (transient ischemic attack) G45.9 Chronic kidney disease, stage III (moderate) N18.30 Recurrent UTI N39.0 Hypertension I10 Hypertension type: primary hypertension
--- NOTE | 2021-12-02 11:11 | PC.CHAP ---
Pastoral Care Encounter/Spiritual Assessment Type of Contact [] Declined heavy forger visit [] Patient/Family/Request visit [] Outpatient visit [] Follow-up visit [] Physician referral [] Code/Alert [x] Routine visit [] Staff referral [] Actively dying [] Patient sleeping [] Family support [] [] Out of room [] Palliative care [] [x] Receiving care in room [] Pre-surgical visit [] Trauma [] Long length of stay [] ICU visit [] Other: Relational/Emotional Strength [] Patient feels connected with others/family/visitors/staff [] Distress [] Loneliness/isolation [] Abandonment Spirituality of Patient [] Person of Tri [] Attends Latter-Day of their Tri [] Believes in Prayer [] Reads Bible or Zoroastrian materials [] There are Spiritual issues to be addressed Cabin Cleaner Interventions [] Prayer [] Active listening [] Non-anxious presence [] Spiritual/emotional support [] Crisis/trauma care [] Spiritual counseling [] Bereavement support [] Provided bereavement packet [] Provided Bible/devotional materials [] Provided toy/stuffed animal, coloring book to patient or family member [] Provided Communion [] Anointing/[place] [] Salvation [] Completed spiritual assessment [] Other: Impact on Illness or Injury [] Angry [] Fearful [] Anxious [] Often cries [] Exhaustion [] Unable to work [] Unable to attend nondenominational [] Unable to walk/stand [] Unable to read [] Unable to drive [] Unable to eat/drink [] Unable to sleep [] Unable to be with family [] Patient intubated [] Other: Summary Time spent with patient
[2021-12-02 11:20] VITALS: BP 159/83; PULSE 52; RESP 18; TEMP 36.6; O2SAT 95
--- NOTE | 2021-12-02 14:01 | PC.NURSE ---
Pt requesting to leave AMA. Dr. Ramos has spoken to patient and he still wishes to continue.
--- NOTE | 2021-12-04 11:54 | P.DS_ITS ---
Discharge Providers Date of Admission: 12/01/21 13:27 Date of Discharge: December 04, 2021 Attending Provider at Admission: Denise Lance MD Attending Provider at Discharge: Elias Ramos MD Primary Care Provider: Mee Natarajan MD Diagnoses at Discharge Discharge Diagnosis (1) Bradycardia: Status: Acute (2) Chest pain: Status: Acute (3) Atrial fibrillation: Status: Acute (4) TIA (transient ischemic attack): Status: Chronic (5) Chronic kidney disease, stage III (moderate): Status: Chronic (6) Recurrent UTI: Status: Chronic (7) Hypertension: Status: Chronic Qualifiers: Hypertension type: primary hypertension Qualified Code(s): I10 - Essential (primary) hypertension Reason for Visit Reason for Visit: Chest Pain Hospital Course Hospital Course Patient left AGAINST MEDICAL ADVICE This is a 76-year-old male with a past medical history of atrial flutter diagnosed in 2018 on Eliquis chronic kidney disease stage III, depression, GERD, history of atrial flutter on Eliquis, hypertension, obesity, TIA, recent diagnosis of basal cell carcinoma plans on Mohs surgery potentially tomorrow to dermatology who presents to [facility] chest pain Patient was admitted to [facility] for chest pain, had unremarkable troponins, no significant delta troponin, EKG did show sinus bradycardia with supraventricular complexes, echocardiogram ?Normal left ventricular size and systolic function, EF 56 %. ?Mild left ventricular hypertrophy. ?No regional wall motion abnormalities. ?Some features of aortic valve sclerosis. ?The left atrium, upper limit of normal size. ?No significant stenotic or regurgitant lesions ?There is no pericardial effusion. ?Compared to the study from 12/07/2020, there may not be ?significant change -Patient had intermittent complaints of dizziness, no recurrent chest pain during his hospitalization -However due to his past medical history, I strongly advised for inpatient admission, and cardiology consultation, cardiology was consulted -Patient was advised for inpatient admission, for cardiac stress testing, however patient declined, left AGAINST MEDICAL ADVICE -I discussed with patient morbidity or mortality associate with leaving its medical advice, risk including but not limited to cardiac arrest, significant cardiac injury, morbidity and mortality, he boisterously all questions answered, left AGAINST MEDICAL ADVICE -I did tell him to continue his Eliquis due to history of atrial flutter, to hold metoprolol and follow-up with primary care -Follow-up with cardiology in primary care for consideration of stress testing Discharge Data Studies Completed and Pending Completed Studies During Hospitalization Category Date Time Status XR chest 1V portable [id number] Stat Exams 12/01/21 11:48 Completed CV. echo complete* [id number] Routine Ultrasound 12/02/21 08:03 Completed Pending at discharge Category Date Time Status Sestamibi Stress Test Request Routine Exams 12/02/21 12:48 Ordered Radiology Impressions Chest X-Ray 12/01/21 11:48 IMPRESSION: Mild cardiomegaly with no acute chest abnormality. Laboratory Results WBC 4.3 10^3/uL (4.0-10.0) 12/02/21 02:52 RBC 4.02 10^6/uL (4.1-5.3) L 12/02/21 02:52 Hgb 12.8 g/dL (11.7-16.6) 12/02/21 02:52 Hct 38.8 % (42.0-52.0) L 12/02/21 02:52 MCV 96.5 fl (80-94) H 12/02/21 02:52 MCH 31.8 pg (28.0-34.0) 12/02/21 02:52 MCHC 33.0 g/dL (30.0-36.0) 12/02/21 02:52 RDW 13.2 % (12.1-15.1) 12/02/21 02:52 Plt Count 159 10^3/cmm (130-400) D 12/02/21 02:52 MPV 8.7 fL (7.4-10.4) 12/02/21 02:52 Neut % (Auto) 60.0 % 12/02/21 02:52 Lymph % (Auto) 30.6 % 12/02/21 02:52 [place] % (Auto) 7.6 % 12/02/21 02:52 Eos % (Auto) 1.4 % 12/02/21 02:52 Baso % (Auto) 0.2 % 12/02/21 02:52 Neut # (Auto) 2.60 10^3/uL (1.8-7.7) 12/02/21 02:52 Lymph # (Auto) 1.3 10^3/uL (0.8-4.8) 12/02/21 02:52 [place] # (Auto) 0.3 10^3/uL (0.2-0.9) 12/02/21 02:52 Eos # (Auto) 0.1 10^3/uL (0.0-0.8) 12/02/21 02:52 Baso # (Auto) 0.0 10^3/uL (0.0-0.1) 12/02/21 02:52 Nucleated RBC % (auto) 0 % 12/02/21 02:52 Nucleated RBCs # 0.0 /100WBC 12/02/21 02:52 PT 14.50 SECONDS (12.1-14.9) 12/02/21 02:52 INR 1.10 (0.8-1.2) 12/02/21 02:52 APTT 28.9 SECONDS (23.9-36.7) 12/02/21 02:52 Sodium 142 mmol/L (136-145) 12/02/21 02:52 Potassium 4.2 mmol/L (3.5-5.1) 12/02/21 02:52 Chloride 106 mmol/L (98-107) 12/02/21 02:52 Carbon Dioxide 28 mmol/L (22-29) 12/02/21 02:52 Anion Gap 12.2 (5-19) 12/02/21 02:52 BUN 23 mg/dL (8-23) 12/02/21 02:52 Creatinine 1.2 mg/dL (0.7-1.2) 12/02/21 02:52 GFR Calculation Not Reportable 12/02/21 02:52 Glucose 116 mg/dL (65-115) H 12/02/21 02:52 Calculated Osmolality 299 mOsm/kg (285-295) H 12/02/21 02:52 Calcium 9.9 mg/dL (8.5-10.5) 12/02/21 02:52 Phosphorus 3.3 mg/dL (2.5-4.5) 12/02/21 02:52 Magnesium 1.4 mg/dL (1.7-2.3) L 12/02/21 02:52 Total Bilirubin 0.9 mg/dL (0.15-1.2) 12/01/21 11:10 AST 16 U/L (0-40) 12/01/21 11:10 ALT 14 U/L (0-41) 12/01/21 11:10 Alkaline Phosphatase 76 U/L (40-130) 12/01/21 11:10 Troponin T Baseline 15 ng/L (0-15) 12/01/21 11:10 Troponin T 120 Minute 11.22 ng/L (0-15) 12/01/21 13:22 Delta Troponin T 3.78 ABS# (0-10) 12/01/21 13:22 Troponin T Hi Sens 6Hr 9.34 ng/L (0-15) 12/01/21 18:24 Troponin T Hi Sens 6Hr Delta -5.66 ng/L (0-12) L 12/01/21 18:24 Total Protein 6.4 g/dL (6.6-8.7) L 12/01/21 11:10 Albumin 4.2 g/dL (3.5-5.2) 12/01/21 11:10 Globulin 2.2 g/dL (1.3-4.6) 12/01/21 11:10 TSH 1.00 uIU/mL (0.27-4.20) 12/02/21 02:52 Vitals Last Vital Signs Temp 97.9 F 12/02/21 11:20 Pulse 52 L 12/02/21 11:20 Resp 18 12/02/21 11:20 BP 159/83 12/02/21 11:20 Pulse Ox 95 12/02/21 11:20 O2 Del Method 12/02/21 11:20 Discharge Plan Discharge Patient Disposition: Left Against Medical Advice Condition: Stable Prescriptions: No Action ascorbic acid (vitamin C) 1,000 mg tablet 1 g PO BID hydrochlorothiazide 12.5 mg tablet 12.5 mg PO QAM Qty: 30 3RF amlodipine 5 mg tablet 5 mg PO DAILY (DME) AFO to the Left See Rx Instructions .Route .MEDSUPPLY Qty: 1 0RF Rx Instructions: As directed [facility] P [facility] alprazolam 1 mg tablet 1 mg PO BID PRN (Reason: anxiety) Qty: 60 2RF hydrocodone-acetaminophen 10-325 mg tablet 1 - 2 tab PO QID PRN (Reason: Pain) fluvoxamine 50 mg tablet 50 mg PO BID lisinopril 20 mg tablet 20 mg PO DAILY Qty: 20 0RF meloxicam 15 mg Tablet 15 mg PO DAILY PRN (Reason: Pain) Aspir-81 81 mg Tablet,Delayed Release (Dr/Ec) 81 mg PO DAILY methenamine hippurate 1 gram tablet 1 g PO BID mirtazapine 15 mg tablet 15 mg PO BEDTIME omeprazole 20 mg capsule,delayed release(DR/EC) 20 mg PO DAILY PRN (Reason: Acid Reflux) metoprolol tartrate 25 mg tablet 50 mg PO BID Men's 50 Plus Multivitamin 400-20-370 mcg Tablet 1 tab PO DAILY Miralax 17 gram powder in packet 17 g PO BEDTIME PRN (Reason: Constipation) Rx Instructions: Take 1 packet by mouth at bedtime as needed for constipation Referrals: Mee Natarajan MD [Primary Care Provider] - Patient Instructions: Opioid Safety Discharge Attestations Time Spent in Discharge Care*: less than 30 min Status at Discharge: Cognitive status at discharge: mildly impaired cognition , Behavioral status at discharge: cooperative , Quality Metrics Clinical Quality Measures [ No reported AMI, CVA or VTE this stay] Coding Level of Care Code Acute Chg [facility] note Diagnoses Bradycardia R00.1 Chest pain R07.9 Atrial fibrillation I48.91 TIA (transient ischemic attack) G45.9 Chronic kidney disease, stage III (moderate) N18.30 Recurrent UTI N39.0 Hypertension I10 Hypertension type: primary hypertension
== END 2021-12-02 14:18 | disposition left against medical advice (07) ==
LOC: ER 13:52 → MEDSURG 17:53
PROVIDERS: Admitting Provider Hospitalist; Emergency Provider Family Medicine; PCP Internal Medicine; Visit Provider Family Medicine
DX: G45.9 Transient cerebral ischemic attack, unspecified (principal); R00.1 Bradycardia, unspecified; R07.9 Chest pain, unspecified; I48.91 Unspecified atrial fibrillation; E11.22 Type 2 diabetes mellitus with diabetic chronic kidney disease; N18.30 Chronic kidney disease, stage 3 unspecified; I12.9 Hypertensive chronic kidney disease with stage 1 through stage 4 chronic kidney disease, or unspecified chronic kidney disease; N39.0 Urinary tract infection, site not specified; Z53.21 Procedure and treatment not carried out due to patient leaving prior to being seen by health care provider; Z79.01 Long term (current) use of anticoagulants; F32.A Depression, unspecified; K21.9 Gastro-esophageal reflux disease without esophagitis; E66.9 Obesity, unspecified; Z68.31 Body mass index [BMI] 31.0-31.9, adult; F41.9 Anxiety disorder, unspecified; Z86.16 Personal history of COVID-19; M17.11 Unilateral primary osteoarthritis, right knee; Z85.828 Personal history of other malignant neoplasm of skin; M25.572 Pain in left ankle and joints of left foot; G89.29 Other chronic pain
CPT/HCPCS: 36415; 71045; 80048; 80053; 83735; 84100; 84443; 84484; 85025; 85610; 85730; 93005; 93306; 96365; 96366; 99285; G0378; J3475

== ENCOUNTER 2021-12-28 11:16 | Emergency (ER) | payer MEDICARE, MEDICAID, SELFPAY ==
[2021-12-28 11:25] VITALS: PULSE 61; TEMP 36.6; O2SAT 95; BMI 28.0
--- NOTE | 2021-12-28 11:33 | ED_ITS ---
HPI - Abdominal Pain General: Chief Complaint: Abdominal Pain Stated Complaint: Right side pain Time Seen by Provider: 12/28/21 11:32 History of Present Illness: Mr. Silva is a 76-year-old gentleman with complex past medical history presents to the emergency department due to right- sided back and flank pain. Onset of symptoms was subacute approximately 2 days ago without known specific provoking event. Since that time symptoms have persisted and are moderate to severe in intensity. He describes radiation of dull pain all the way down his leg from his right posterior ribs. Denies associated GI or respiratory symptoms. No associated weakness or falls. No overlying skin changes. No other specific changes in health, exacerbating, or alleviating factors identified. Onset (ago): day(s) Pain Consistency: constant Location: R flank Severity: moderate Quality: dull Radiation: other Migration to: no migration Exacerbating factors: nothing Relieving factors: nothing Associated Symptoms: Reports no associated symptoms Review of Systems General: Reports: 10 or more systems reviewed and unremarkable except in HPI and below PFSH ED PFSH: Medical History Anxiety Basal cell carcinoma, 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) Left, s/p Mohs Chronic kidney disease, stage III (moderate) COVID-19 (10/16/20) Depression GERD (gastroesophageal reflux disease) History of cardiac arrhythmia Has has documented transient atrial fibrillation/flutter with rapid ventricular response with spontaneous conversion to sinus rhythm in 2013 post op, again 2017 during acute illness History of nonmelanoma skin cancer Hyperparathyroidism (04/08/20) Hypertension Meatal stenosis Obesity (BMI 30.0-34.9) Osteoarthritis involving multiple joints on both sides of body Neck, back & rt knee and rt AC joint Postprocedural urethral stricture Recurrent UTI Squamous cell carcinoma of penis TIA (transient ischemic attack) Surgical History History of excision of mass (07/2015) Penile lesion, by Dr Encinas. Procedure done: 1. Dorsal relaxing incision to expose penile mass 2. Wide excision of invasive appearing penile lesion consistent grossly with squamous cell carcinoma. Involving the glans penis and incompletely resected. Squamous cell carcinoma History of knee surgery (10/2011) Dr Andres. Right knee arthroscopy, chondroplasty patella, medial femoral condyle, lateral femoral condyle and mild debridement of the posterior horn lateral meniscus. History of laparoscopic cholecystectomy History of repair of right rotator cuff (04/2020) Dr Wolfe, Arthroscopic repair right rotator cuff, limited debridement including biceps tenotomy, labral debridement, subacromial bursectomy, and subacromial decompression History of surgery on upper extremity Left, s/p fracture S/P Mohs surgery for basal cell carcinoma Left arm 10/2021 Back planned 10/2021 Family History Mother , in her 80's Stroke Father , in his 60's Alcoholic Denies family history of Anesthesia complication Bleeding disorder Social History Smoking and tobacco status: never smoked Second hand smoke exposure: No Alcohol intake: never Adopted: No Caregiver/support person: Yes Lives independently: Yes Household members: family and other Details: Son, grandson at house Housing: House Marital status: / Highest education level completed: High School Graduate service: No Current occupational status: retired Sexually active: No Current gender identity: Male Rti/Cheondoism: Muslim Special tri needs: No Physical Exam Const: COMMON NORMALS: alert GENERAL APPEARANCE: cooperative and well developed HENMT: COMMON NORMALS: normocephalic and atraumatic HEAD & SCALP: normocephalic and atraumatic Eye: COMMON NORMALS: conjunctivae normal CONJUNCTIVA: Yes conjunctivae normal SCLERA: sclerae normal Neck/C-Spine: COMMON NORMALS: supple GENERAL: Yes trachea midline Resp: COMMON NORMALS: normal respiratory effort and clear to auscultation bilaterally EFFORT & INSPECTION: Yes able to speak in complete sentences AUSCULTATION: clear to auscultation bilaterally Cardio: COMMON NORMALS: regular rate and regular rhythm RATE: regular rate RHYTHM: regular rhythm GI: COMMON NORMALS: Soft to palpation PALPATION: Yes Soft to palpation, Yes Tenderness to palpation present (GI) (right side), No Guarding due to palpation present (GI) and No Rigid due to palpation PERCUSSION: normal to percussion Extremity: GENERAL: Yes normal exam except as noted and No edema Neuro: COMMON NORMALS: moves all extremities SENSORIUM/ORIENTATION: Yes alert and No Orientation impaired Psych: COMMON NORMALS: mental status grossly normal and Normal thought process present THOUGHT PROCESS: Normal thought process present Skin: NARRATIVE SKIN EXAM: No rashes. Prior dermatologic surgical site appears well-healing Course Vital Signs: Vital signs: Vital Signs Temperature 98.1 F 12/28/21 15:15 Pulse Rate 52 L 12/28/21 15:15 Respiratory Rate 17 12/28/21 15:15 Blood Pressure 131/72 12/28/21 15:15 Pulse Oximetry 95 12/28/21 15:15 Oxygen Delivery Me thod 12/28/21 11:25 MDM - Abdominal Pain Medical Decision Making 76-year-old gentleman presenting with abdominal symptoms. Exam as above. Analgesia and fluids given during ED course. Labs notable for no leukocytosis, normal hemoglobin. Metabolic panel with some evidence of dehydration/elevated creatinine compared to recent prior. Urinalysis concerning for urinary tract infection. Antibiotics ordered. CT abdomen and pelvis with 15 mm nonobstructing calculus in the left kidney and calcification of the pancreas as well as urinary bladder wall thickening. X- rays negative for acute pathology. Upon reassessment patient is improved. Most likely cause of patient's symptoms is urinary tract infection. The results of ED evaluation were discussed with the patient including prescriptions and/or symptomatic cares (if applicable) including appropriate and responsible use, followup plan, and return precautions. The patient verbalized understanding and felt safe for discharge. Medical Records I reviewed the patient's medical records. Lab Data I reviewed the patient's lab results. : 12/28/21 11:55 12/28/21 11:55 Labs/Radiology: Radiology Impressions Abdomen/Pelvis CT 12/28/21 11:41 IMPRESSION: 1. Urinary bladder wall thickening could be due to cystitis or lack of distention. 2. There is a 15 mm nonobstructing calculus in a lower pole calyx of the left kidney. 3. Punctate calcification at the junction of the pancreatic head/body is consistent with chronic pancreatitis change. Chest X-Ray 12/28/21 11:41 IMPRESSION: No evidence for acute cardiopulmonary disease. Femur X-Ray 12/28/21 11:41 IMPRESSION: There are primary osteoarthritic changes across the hip joint and knee joint. Hip/Pelvis X-Ray 12/28/21 11:41 IMPRESSION: There are osteoarthritic changes across the hip joint as described above. No evidence for acute fracture. Laboratory Results WBC 8.0 10^3/uL (4.0-10.0) 12/28/21 11:55 RBC 4.09 10^6/uL (4.1-5.3) L 12/28/21 11:55 Hgb 13.1 g/dL (11.7-16.6) 12/28/21 11:55 Hct 39.5 % (42.0-52.0) L 12/28/21 11:55 MCV 96.6 fl (80-94) H 12/28/21 11:55 MCH 32.0 pg (28.0-34.0) 12/28/21 11:55 MCHC 33.2 g/dL (30.0-36.0) 12/28/21 11:55 RDW 12.7 % (12.1-15.1) 12/28/21 11:55 Plt Count 129 10^3/cmm (130-400) L 12/28/21 11:55 MPV 9.2 fL (7.4-10.4) 12/28/21 11:55 Neut % (Auto) 71.7 % 12/28/21 11:55 Lymph % (Auto) 16.4 % 12/28/21 11:55 [place] % (Auto) 8.4 % 12/28/21 11:55 Eos % (Auto) 2.7 % 12/28/21 11:55 Baso % (Auto) 0.4 % 12/28/21 11:55 Neut # (Auto) 5.75 10^3/uL (1.8-7.7) 12/28/21 11:55 Lymph # (Auto) 1.3 10^3/uL (0.8-4.8) 12/28/21 11:55 [place] # (Auto) 0.7 10^3/uL (0.2-0.9) 12/28/21 11:55 Eos # (Auto) 0.2 10^3/uL (0.0-0.8) 12/28/21 11:55 Baso # (Auto) 0.0 10^3/uL (0.0-0.1) 12/28/21 11:55 Nucleated RBC % (auto) 0 % 12/28/21 11:55 Nucleated RBCs # 0.0 /100WBC 12/28/21 11:55 Sodium 133 mmol/L (136-145) L 12/28/21 11:55 Potassium 3.8 mmol/L (3.5-5.1) 12/28/21 11:55 Chloride 101 mmol/L (98-107) 12/28/21 11:55 Carbon Dioxide 23 mmol/L (22-29) 12/28/21 11:55 Anion Gap 12.8 (5-19) 12/28/21 11:55 BUN 40 mg/dL (8-23) H 12/28/21 11:55 Creatinine 1.5 mg/dL (0.7-1.2) H 12/28/21 11:55 GFR Calculation Not Reportable 12/28/21 11:55 Glucose 107 mg/dL (65-115) 12/28/21 11:55 Calculated Osmolality 286 mOsm/kg (285-295) 12/28/21 11:55 Calcium 10.0 mg/dL (8.5-10.5) 12/28/21 11:55 Total Bilirubin 0.9 mg/dL (0.15-1.2) 12/28/21 11:55 AST 11 U/L (0-40) 12/28/21 11:55 ALT 10 U/L (0-41) 12/28/21 11:55 Alkaline Phosphatase 88 U/L (40-130) 12/28/21 11:55 Total Protein 6.8 g/dL (6.6-8.7) 12/28/21 11:55 Albumin 3.7 g/dL (3.5-5.2) 12/28/21 11:55 Globulin 3.1 g/dL (1.3-4.6) 12/28/21 11:55 Lipase 39 U/L (13-60) 12/28/21 11:55 Urine Color Yellow (Yellow) 12/28/21 12:20 Urine Appearance Hazy (CLEAR) A 12/28/21 12:20 Urine pH 5 (5-7) 12/28/21 12:20 Ur Specific [place] 1.015 (1.005-1.030) 12/28/21 12:20 Urine Protein Trace (Negative) 12/28/21 12:20 Urine Glucose (UA) Norm (Normal) 12/28/21 12:20 Urine Ketones Negative (Negative) 12/28/21 12:20 Urine Blood Neg (Negative) 12/28/21 12:20 Urine Nitrate Negative (Negative) 12/28/21 12:20 Urine Bilirubin Neg (Negative) 12/28/21 12:20 Urine Urobilinogen Norm mg/dL (Negative) 12/28/21 12:20 Ur Leukocyte Esterase 2+ (Negative) H 12/28/21 12:20 Urine RBC None /hpf (0-2) 12/28/21 12:20 Urine WBC >100 /hpf (0-5) H 12/28/21 12:20 Ur Squamous Epith Cells Rare /hpf (0-5) 12/28/21 12:20 Amorphous Sediment Not Reportable 12/28/21 12:20 Urine Bacteria 1+ /hpf (NONE) H 12/28/21 12:20 Urine Yeast Trace /hpf 12/28/21 12:20 Discharge Plan Discharge Patient Disposition: Home Clinical Impression: Recurrent UTI, Flank pain Condition: Stable Prescriptions: New cefpodoxime 200 mg tablet 200 mg PO BID Qty: 20 0RF Rx Instructions: must administer with a meal/food No Action ascorbic acid (vitamin C) 1,000 mg tablet 1 g PO BID hydrochlorothiazide 12.5 mg tablet 12.5 mg PO QAM Qty: 30 3RF amlodipine 5 mg tablet 5 mg PO DAILY (DME) AFO to the Left See Rx Instructions .Route .MEDSUPPLY Qty: 1 0RF Rx Instructions: As directed [facility] alprazolam 1 mg tablet 1 mg PO BID PRN (Reason: anxiety) 30 Days Qty: 60 2RF Rx Instructions: Reset 30 days since his medication was loss doxycycline hyclate 100 mg tablet 100 mg PO BID 7 Days Qty: 14 0RF hydrocodone-acetaminophen 5-325 mg tablet 1 tab PO Q6H PRN (Reason: pain) Qty: 14 0RF hydrocodone-acetaminophen 10-325 mg tablet 1 - 2 tab PO QID PRN (Reason: Pain) fluvoxamine 50 mg tablet 50 mg PO BID lisinopril 20 mg tablet 20 mg PO DAILY Qty: 20 0RF meloxicam 15 mg Tablet 15 mg PO DAILY PRN (Reason: Pain) Aspir-81 81 mg Tablet,Delayed Release (Dr/Ec) 81 mg PO DAILY methenamine hippurate 1 gram tablet 1 g PO BID mirtazapine 15 mg tablet 15 mg PO BEDTIME omeprazole 20 mg capsule,delayed release(DR/EC) 20 mg PO DAILY PRN (Reason: Acid Reflux) Men's 50 Plus Multivitamin 400-20-370 mcg Tablet 1 tab PO DAILY Miralax 17 gram powder in packet 17 g PO BEDTIME PRN (Reason: Constipation) Rx Instructions: Take 1 packet by mouth at bedtime as needed for constipation metoprolol tartrate 25 mg tablet 25 mg PO BID Discharge Orders: Discharge ED (Routine); Ordered 12/28/21 Ordered By: Reilly Mckinley Referrals: Mee Natarajan MD [Primary Care Provider] - Discharge Diet: Usual diet Discharge Activity: Increase activity as tolerated Patient Instructions: Urinary Tract Infection in Men (ED), Flank Pain (ED), Pain Management Activity Restrictions/Additional Instructions: Thank you for visiting the emergency department. You were seen and evaluated for side pain and hip/leg pain. The exact cause of your symptoms is unclear th ough may be related to urinary tract infection. Based on ED evaluation at this time you do not require inpatient management of this. I will prescribe antibiotics. Please follow-up with a primary care provider. Return to the emergency department for worsening symptoms, fevers, uncontrolled pain, inability tolerate oral intake, inability to urinate, or anything else that you are concerned about a feel needs emergency department evaluation. Coding Level of Care Code ED Pharmacy Teacher for Cielo Chopra Exam Comprehensive
--- NOTE | 2021-12-28 11:41 | XRR_ITS ---
PROCEDURE INFORMATION: Exam: XR Chest Exam date and time: 12/28/2021 12:37 PM Age: 76 years old Clinical indication: Pain; Chest pressure; Additional info: R lateral chest pain TECHNIQUE: Imaging protocol: Radiologic exam of the chest. Views: 1 view. COMPARISON: CR XR chest 1V portable [id number] 12/01/2021 11:51 AM FINDINGS: Lungs: There is scarring and or atelectasis at the left lung base which is similar to the prior study. Pleural spaces: Unremarkable. No pleural effusion. No pneumothorax. Heart/Mediastinum: Unremarkable. No cardiomegaly. Vasculature: There is minimal calcified plaque in the aortic knob similar to the prior study. Bones/joints: There are degenerative changes in the thoracic spine and across the acromioclavicular joints. XR/XR chest 1V portable [id number] IMPRESSION: No evidence for acute cardiopulmonary disease.
--- NOTE | 2021-12-28 11:41 | XRR_ITS ---
PROCEDURE INFORMATION: Exam: XR Right Hip Exam date and time: 12/28/2021 12:37 PM Age: 76 years old Clinical indication: Hip pain; Right hip; Additional info: R hip/radiating leg pain TECHNIQUE: Imaging protocol: Radiologic exam of the Right hip. Views: 1 view hip with pelvis when performed. COMPARISON: CT abdomen pelvis w con* [id number] 12/06/2020 1:33 PM FINDINGS: Bones/joints: There are osteoarthritic changes across the hip joint including marginal osteophyte formations, subchondral cystic changes, and mild narrowing of the joint space. There are pelvic enthesophytes. Soft tissues: Unremarkable. XR/XR hip RT 2-3V wo/w pel* [id number] IMPRESSION: There are osteoarthritic changes across the hip joint as described above. No evidence for acute fracture.
--- NOTE | 2021-12-28 11:41 | CTR_ITS ---
PROCEDURE INFORMATION: Exam: CT Abdomen And Pelvis With Contrast Exam date and time: 12/28/2021 12:50 PM Age: 76 years old Clinical indication: Abdominal pain; Flank; Right upper quadrant TECHNIQUE: Imaging protocol: Computed tomography of the abdomen and pelvis with contrast. Radiation optimization: All CT scans at this facility use at least one of these dose optimization techniques: automated exposure control; mA and/or kV adjustment per patient size (includes targeted exams where dose is matched to clinical indication); or iterative reconstruction. Contrast material: OMNI 350; Contrast volume: 100 ml; Contrast route: INTRAVENOUS (IV); COMPARISON: CT abdomen pelvis w con* [id number] 12/06/2020 1:33 PM RADIATION DOSE METRICS: Total DLP (mGy-cm): 812.71 FINDINGS: Liver: See Gallbladder and bile ducts finding. Gallbladder and bile ducts: The gallbladder has been removed. Prominence of the intrahepatic and extrahepatic biliary ducts. This can be seen after cholecystectomy. No radiopaque retained stones are seen. Pancreas: Punctate calcification at the junction of the pancreatic head/body is consistent with chronic pancreatitis change. Spleen: Normal. No splenomegaly. Adrenal glands: Normal. No mass. Kidneys and ureters: Bilateral renal cortical thinning. A 15 mm calculus in a lower pole calyx of the left kidney. No hydronephrosis or hydroureter to suggest obstruction. Bilateral renal cysts with benign features the larger of which measures 19 mm off the lateral aspect of the right kidney. Stomach and bowel: Unremarkable. No obstruction. No mucosal thickening. Appendix: A normal appendix is identified. Intraperitoneal space: Unremarkable. No free air. No significant fluid collection. Vasculature: There is atherosclerotic plaque in the aorta and iliac arteries. Lymph nodes: Unremarkable. No enlarged lymph nodes. Urinary bladder: Urinary bladder wall thickening could be due to cystitis or lack of distention. Reproductive: There are calcifications in the prostate gland. Bones/joints: Unremarkable. No acute fracture. Soft tissues: Unremarkable. CT/CT abdomen pelvis w con* [id number] IMPRESSION: 1. Urinary bladder wall thickening could be due to cystitis or lack of distention. 2. There is a 15 mm nonobstructing calculus in a lower pole calyx of the left kidney. 3. Punctate calcification at the junction of the pancreatic head/body is consistent with chronic pancreatitis change.
--- NOTE | 2021-12-28 11:41 | XRR_ITS ---
PROCEDURE INFORMATION: Exam: XR Right Femur Exam date and time: 12/28/2021 12:37 PM Age: 76 years old Clinical indication: Pain; Thigh; Right; Additional info: Radianting pain down leg TECHNIQUE: Imaging protocol: Radiologic exam of the Right femur. Views: 2 views. COMPARISON: CR XR sacrum coccyx min 2V [id number] 05/06/2021 2:21 PM FINDINGS: Bones/joints: There are primary osteoarthritic changes across the hip joint and knee joint. Soft tissues: Unremarkable. XR/XR femur RT min 2V* [id number] IMPRESSION: There are primary osteoarthritic changes across the hip joint and knee joint.
[2021-12-28 12:22] LABS: Basophils % 0.4 %; Eosinophils # 0.2 10^3/uL (0.0-0.8); Eosinophils % 2.7 %; Hematocrit 39.5 % (42.0-52.0); Hemoglobin 13.1 g/dL (11.7-16.6); Lymphocytes # 1.3 10^3/uL (0.8-4.8); Lymphocytes % 16.4 %; Mean Corpuscular HGB Conc 33.2 g/dL (30.0-36.0); Mean Corpuscular Volume 96.6 fl (80-94); Mean Platelet Volume 9.2 fL (7.4-10.4); Monocytes # 0.7 10^3/uL (0.2-0.9); Monocytes % 8.4 %; Neutrophils # 5.75 10^3/uL (1.8-7.7); Neutrophils % 71.7 %; Nucleated Red Blood Cells % 0 %; Platelet Count 129 10^3/cmm (130-400); Red Blood Count 4.09 10^6/uL (4.1-5.3); Red Cell Distribution Width 12.7 % (12.1-15.1)
[2021-12-28 12:34] LABS: Alanine Aminotransferase 10 U/L (0-41); Albumin Level 3.7 g/dL (3.5-5.2); Alkaline Phosphatase 88 U/L (40-130); Anion Gap 12.8 (5-19); Aspartate Amino Transferase 11 U/L (0-40); Blood Urea Nitrogen 40 mg/dL (8-23); Carbon Dioxide 23 mmol/L (22-29); Chloride 101 mmol/L (98-107); Globulin 3.1 g/dL (1.3-4.6); Glucose 107 mg/dL (65-115); Lipase 39 U/L (13-60); Osmolality Calculated 286 mOsm/kg (285-295); Potassium 3.8 mmol/L (3.5-5.1); Sodium 133 mmol/L (136-145); Total Bilirubin 0.9 mg/dL (0.15-1.2); Total Protein 6.8 g/dL (6.6-8.7)
[2021-12-28 12:52] LABS: Add Urine Microscopic? YES; Bilirubin Urine Neg (Negative); Blood Urine Neg (Negative); Glucose Urine UA Norm (Normal); Ketones Urine Negative (Negative); Leukocyte Esterase Urine 2+ (Negative); Nitrate Urine Negative (Negative); Protein Urine Trace (Negative); Specific Gravity, Urine 1.015 (1.005-1.030); Urine Appearance Hazy (CLEAR); Urine Color Yellow (Yellow); Urobilinogen Urine Norm (Negative); pH Urine 5 (5-7)
[2021-12-28 12:54] LABS: Bacteria Urine 1+ /hpf; Squamous Epithelial Cell Urine RARE /hpf (0-5); WBC Urine >100 /hpf (0-5)
[2021-12-28 12:55] LABS: Add Urine Culture? Yes
[2021-12-28] MEDS: iohexol 350 mg/mL 100 mL Btl IV (12:56)
[2021-12-28] MEDS: sodium chloride 0.9% 1,000 ML 999 ML IV (13:07)
[2021-12-28 13:10] VITALS: RESP 16; O2SAT 95
[2021-12-28] MEDS: morphine 4 mg/mL SDV 1 mL IVP (13:10)
[2021-12-28] MEDS: ketorolac 30 mg/mL INJ 15 MG IVP (13:12)
[2021-12-28] MEDS: cefTRIAXone 1,000 MG in sodium chloride 0.9% (plus) 50 ML 100 MG IV (14:16)
[2021-12-28 15:15] VITALS: BP 131/72; PULSE 52; RESP 17; TEMP 36.7; O2SAT 95
== END 2021-12-28 15:16 | disposition home or self-care (01) ==
PROVIDERS: Emergency Provider Emergency Medicine; PCP Internal Medicine
DX: N39.0 Urinary tract infection, site not specified (principal); Z79.82 Long term (current) use of aspirin; I12.9 Hypertensive chronic kidney disease with stage 1 through stage 4 chronic kidney disease, or unspecified chronic kidney disease; N18.30 Chronic kidney disease, stage 3 unspecified; Z87.440 Personal history of urinary (tract) infections; Z86.73 Personal history of transient ischemic attack (TIA), and cerebral infarction without residual deficits
CPT/HCPCS: 71045; 73502; 73552; 74177; 80053; 81001; 83690; 85025; 87086; 96365; 96375; 99285; J0696; J1885; J2270; J7030; Q9967

== ENCOUNTER 2021-12-30 01:15 | Emergency (ER) | payer MEDICARE, MEDICAID, SELFPAY ==
[2021-12-30 01:20] VITALS: BP 166/66; PULSE 105; RESP 16; TEMP 37.2; O2SAT 95
--- NOTE | 2021-12-30 01:32 | XRR_ITS ---
PROCEDURE INFORMATION: Exam: XR Chest Exam date and time: 12/30/2021 1:35 AM Age: 76 years old Clinical indication: Pain; Right-sided; Prior surgery; Surgery type: Rotator cuff. Gb. Patient HX: C/O RT sided chest discomfort; Additional info: Cp TECHNIQUE: Imaging protocol: Radiologic exam of the chest. Views: 1 view. COMPARISON: CR (CHEST, ) 12/28/2021 12:37 PM FINDINGS: Lungs: Mild right infrahilar bronchopneumonia. Pleural spaces: Unremarkable. No pleural effusion. No pneumothorax. Heart/Mediastinum: Unremarkable. No cardiomegaly. Bones/joints: Unremarkable. XR/XR chest 1V portable [id number] IMPRESSION: Mild right infrahilar bronchopneumonia.
--- NOTE | 2021-12-30 01:32 | ECG_ITS ---
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 Measurements Intervals [place] Rate: 78 P: 38 VA: 143 QRS: -5 QRSD: 90 T: 59 QT: 331 QTc: 378 Interpretive Statements SINUS RHYTHM MINIMAL VOLTAGE CRITERIA FOR LVH, CONSIDER NORMAL VARIANT [MEETS CRITERIA IN ONE OF: R(aVL), S(V1), R(V5), R(V5/V6)+S(V1)] PROBABLE SEPTAL MYOCARDIAL INFARCTION , OF INDETERMINATE AGE [35 ms Q WAVE IN V1/V2] Compared to ECG 12/01/2021 17:05:05 Myocardial infarct finding now present Sinus bradycardia no longer present Electronically Signed On 12-30-2021 21:42:59 CDT by Earle Nielsen M.D. [id number]
--- NOTE | 2021-12-30 01:34 | ED_ITS ---
HPI - Back Pain/Injury General: Chief Complaint: Back Pain/Injury Stated Complaint: Rt Side Pain,Back Pain Time Seen by Provider: 12/30/21 01:18 Source: patient Mode of arrival: ambulatory Limitations: no limitations History of Present Illness: 76-year-old male who states he been having right sided pain for the last 5 to 6 days states his whole right side hurts states his abdomen chest all hurt he states it hurts to touch hurts to move his pain is an 8 out of 10 denies any fever denies any cough denies any shortness of breath denies any vomiting or diarrhea. Associated symptoms: Reports abdominal pain; Deny chills or fever(s) Review of Systems Const: Denies: fever(s), chills, body aches or change in appetite Eyes: Denies: blurry vision or eye discomfort ENMT: Denies: throat pain or dental pain Card: Reports: chest pain Resp: Denies: dyspnea GI: Reports: abdominal pain : Reports: flank pain Musc: Reports: back pain Skin/Breast: Denies: rash Neuro: Denies: headache(s) Psych: Denies: depression Cliff/Lymph: Denies: easy bruising All/Imm: Denies: urticaria PFSH ED PFSH: Medical History Anxiety Basal cell carcinoma, 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) Left, s/p Mohs Chronic kidney disease, stage III (moderate) COVID-19 (10/16/20) Depression GERD (gastroesophageal reflux disease) History of cardiac arrhythmia Has has documented transient atrial fibrillation/flutter with rapid ventricular response with spontaneous conversion to sinus rhythm in 2013 post op, again 2017 during acute illness History of nonmelanoma skin cancer Hyperparathyroidism (04/08/20) Hypertension Meatal stenosis Obesity (BMI 30.0-34.9) Osteoarthritis involving multiple joints on both sides of body Neck, back & rt knee and rt AC joint Postprocedural urethral stricture Recurrent UTI Squamous cell carcinoma of penis TIA (transient ischemic attack) Surgical History History of excision of mass (07/2015) Penile lesion, by Dr Encinas. Procedure done: 1. Dorsal relaxing incision to expose penile mass 2. Wide excision of invasive appearing penile lesion consistent grossly with squamous cell carcinoma. Involving the glans penis and incompletely resected. Squamous cell carcinoma History of knee surgery (10/2011) Dr Andres. Right knee arthroscopy, chondroplasty patella, medial femoral condyle, lateral femoral condyle and mild debridement of the posterior horn lateral meniscus. History of laparoscopic cholecystectomy History of repair of right rotator cuff (04/2020) Dr Wolfe, Arthroscopic repair right rotator cuff, limited debridement including biceps tenotomy, labral debridement, subacromial bursectomy, and subacromial decompression History of surgery on upper extremity Left, s/p fracture S/P Mohs surgery for basal cell carcinoma Left arm 10/2021 Back planned 10/2021 Family History Mother , in her 80's Stroke Father , in his 60's Alcoholic Denies family history of Anesthesia complication Bleeding disorder Social History Smoking and tobacco status: never smoked Second hand smoke exposure: No Alcohol intake: never Adopted: No Caregiver/support person: Yes Lives independently: Yes Household members: family and other Details: Son, grandson at house Housing: House Marital status: / Highest education level completed: High School Graduate service: No Current occupational status: retired Sexually active: No Current gender identity: Male Tri/Restorationism: Buddhism Special tri needs: No Physical Exam Const: COMMON NORMALS: no acute distress, patient oriented x3 and healthy appearing HENMT: COMMON NORMALS: normocephalic and atraumatic HEAD & SCALP: normocephalic and atraumatic Eye: COMMON NORMALS: Equal, round and reactive pupils present and EOMs intact bilaterally PUPIL: Yes Equal, round and reactive pupils present Neck/C-Spine: COMMON NORMALS: full ROM and supple Chest: COMMONS NORMALS: normal inspection of the chest and normal palpation of entire chest wall Resp: COMMON NORMALS: normal respiratory effort, No retractions, No use of accessory muscles and clear to auscultation bilaterally AUSCULTATION: clear to auscultation bilaterally Cardio: COMMON NORMALS: regular rate, regular rhythm and No murmurs present (Cardio) RATE: regular rate RHYTHM: regular rhythm GI: COMMON NORMALS: Normal to inspection, nondistended, normoactive bowel sounds present, Soft to palpation, non-tender and no masses PALPATION: Yes Soft to palpation Extremity: COMMON NORMALS: normal to inspection and full ROM Neuro: COMMON NORMALS: patient oriented x3, moves all extremities and no focal motor deficits Psych: COMMON NORMALS: mental status grossly normal, Normal thought process present and cooperative THOUGHT PROCESS: Normal thought process present Skin: COMMON NORMALS: no rashes or lesions noted and no wounds GENERAL SKIN EXAM: no rashes or lesions noted Course Vital Signs: Vital signs: Vital Signs Temperature 99.7 F H 12/30/21 02:12 Pulse Rate 72 12/30/21 02:12 Respiratory Rate 20 H 12/30/21 02:12 Blood Pressure 142/77 12/30/21 02:12 Pulse Oximetry 95 12/30/21 02:12 Oxygen Delivery Me thod 12/30/21 02:12 Oxygen Flow Rate 2 12/30/21 02:12 MDM - Back Pain/Injury Medical Decision Making Patient presents with right-sided flank pain likely from a pneumonia he is well- appearing here his white count is normal he is not hypoxic we will place him on antibiotics he is to follow-up with his PCP and return if worsening. Labs : 12/30/21 02:00 12/30/21 03:20 Radiology Impressions Chest X-Ray 12/30/21 01:32 IMPRESSION: Mild right infrahilar bronchopneumonia. Abdomen/Pelvis CT 12/30/21 02:31 IMPRESSION: 1. Mild right posterior basilar pneumonia. 2. No acute abdominal findings. COMMENTS: Consistent with the [employer]'s Incidental Findings Committee white paper (J Am Triston Radiol 2018): Any incidental renal lesion less than 1 cm or classified as too small to characterize, or any incidental cystic renal lesion characterized as simple-appearing, is likely benign. No follow-up imaging is recommended for these lesions per consensus recommendations based on imaging criteria. Laboratory Results WBC 6.4 10^3/uL (4.0-10.0) 12/30/21 02:00 RBC 3.83 10^6/uL (4.1-5.3) L 12/30/21 02:00 Hgb 12.3 g/dL (11.7-16.6) 12/30/21 02:00 Hct 37.0 % (42.0-52.0) L 12/30/21 02:00 MCV 96.6 fl (80-94) H 12/30/21 02:00 MCH 32.1 pg (28.0-34.0) 12/30/21 02:00 MCHC 33.2 g/dL (30.0-36.0) 12/30/21 02:00 RDW 12.6 % (12.1-15.1) 12/30/21 02:00 Plt Count 116 10^3/cmm (130-400) L 12/30/21 02:00 MPV 9.5 fL (7.4-10.4) 12/30/21 02:00 Neut % (Auto) 76.4 % 12/30/21 02:00 Lymph % (Auto) 11.7 % 12/30/21 02:00 [place] % (Auto) 9.1 % 12/30/21 02:00 Eos % (Auto) 2.3 % 12/30/21 02:00 Baso % (Auto) 0.2 % 12/30/21 02:00 Neut # (Auto) 4.89 10^3/uL (1.8-7.7) 12/30/21 02:00 Lymph # (Auto) 0.8 10^3/uL (0.8-4.8) 12/30/21 02:00 [place] # (Auto) 0.6 10^3/uL (0.2-0.9) 12/30/21 02:00 Eos # (Auto) 0.2 10^3/uL (0.0-0.8) 12/30/21 02:00 Baso # (Auto) 0.0 10^3/uL (0.0-0.1) 12/30/21 02:00 Nucleated RBC % (auto) 0 % 12/30/21 02:00 Nucleated RBCs # 0.0 /100WBC 12/30/21 02:00 PT 13.50 SECONDS (12.1-14.9) 12/30/21 02:00 INR 1.00 (0.8-1.2) 12/30/21 02:00 Sodium 136 mmol/L (136-145) 12/30/21 03:20 Potassium 3.7 mmol/L (3.5-5.1) 12/30/21 03:20 Chloride 102 mmol/L (98-107) 12/30/21 03:20 Carbon Dioxide 24 mmol/L (22-29) 12/30/21 03:20 Anion Gap 13.7 (5-19) 12/30/21 03:20 BUN 38 mg/dL (8-23) H 12/30/21 03:20 Creatinine 1.7 mg/dL (0.7-1.2) H 12/30/21 03:20 GFR Calculation Not Reportable 12/30/21 03:20 Glucose 117 mg/dL (65-115) H 12/30/21 03:20 Calculated Osmolality 292 mOsm/kg (285-295) 12/30/21 03:20 Calcium 9.7 mg/dL (8.5-10.5) 12/30/21 03:20 Total Bilirubin 0.5 mg/dL (0.15-1.2) 12/30/21 03:20 AST 8 U/L (0-40) 12/30/21 03:20 ALT 8 U/L (0-41) 12/30/21 03:20 Alkaline Phosphatase 79 U/L (40-130) 12/30/21 03:20 Troponin T Baseline 19 ng/L (0-15) H 12/30/21 02:00 Total Protein 6.1 g/dL (6.6-8.7) L 12/30/21 03:20 Albumin 3.2 g/dL (3.5-5.2) L 12/30/21 03:20 Globulin 2.9 g/dL (1.3-4.6) 12/30/21 03:20 Lipase 25 U/L (13-60) 12/30/21 03:20 Urine Color Yellow (Yellow) 12/30/21 02:50 Urine Appearance Clear (CLEAR) 12/30/21 02:50 Urine pH 5 (5-7) 12/30/21 02:50 Ur Specific [place] 1.015 (1.005-1.030) 12/30/21 02:50 Urine Protein Trace (Negative) 12/30/21 02:50 Urine Glucose (UA) Norm (Normal) 12/30/21 02:50 Urine Ketones Negative (Negative) 12/30/21 02:50 Urine Blood Neg (Negative) 12/30/21 02:50 Urine Nitrate Negative (Negative) 12/30/21 02:50 Urine Bilirubin Neg (Negative) 12/30/21 02:50 Urine Urobilinogen Norm mg/dL (Negative) 12/30/21 02:50 Ur Leukocyte Esterase Trace (Negative) H 12/30/21 02:50 Urine RBC None /hpf (0-2) 12/30/21 02:50 Urine WBC 5-10 /hpf (0-5) H 12/30/21 02:50 Ur Squamous Epith Cells None /hpf (0-5) 12/30/21 02:50 Amorphous Sediment Not Reportable 12/30/21 02:50 Urine Bacteria Trace /hpf (NONE) 12/30/21 02:50 SARS-CoV-2 Ag (Rapid) negative (Negative) 12/30/21 03:05 Discharge Plan Discharge Patient Disposition: Home Clinical Impression: Pneumonia Qualifiers: Pneumonia type: due to unspecified organism Laterality: right Lung location: lower lobe of lung Qualified Code(s): J18.9 - Pneumonia, unspecified organism Condition: Stable Prescriptions: New doxycycline hyclate 100 mg tablet 100 mg PO BID 7 Days Qty: 14 0RF hydrocodone-acetaminophen 5-325 mg tablet 1 tab PO Q6H PRN (Reason: pain) Qty: 14 0RF No Action ascorbic acid (vitamin C) 1,000 mg tablet 1 g PO BID hydrochlorothiazide 12.5 mg tablet 12.5 mg PO QAM Qty: 30 3RF amlodipine 5 mg tablet 5 mg PO DAILY (DME) AFO to the Left See Rx Instructions .Route .MEDSUPPLY Qty: 1 0RF Rx Instructions: As directed J P & O alprazolam 1 mg tablet 1 mg PO BID PRN (Reason: anxiety) 30 Days Qty: 60 2RF Rx Instructions: Reset 30 days since his medication was loss cefpodoxime 200 mg tablet 200 mg PO BID Qty: 20 0RF Rx Instructions: must administer with a meal/food hydrocodone-acetaminophen 10-325 mg tablet 1 - 2 tab PO QID PRN (Reason: Pain) fluvoxamine 50 mg tablet 50 mg PO BID lisinopril 20 mg tablet 20 mg PO DAILY Qty: 20 0RF meloxicam 15 mg Tablet 15 mg PO DAILY PRN (Reason: Pain) Aspir-81 81 mg Tablet,Delayed Release (Dr/Ec) 81 mg PO DAILY methenamine hippurate 1 gram tablet 1 g PO BID mirtazapine 15 mg tablet 15 mg PO BEDTIME omeprazole 20 mg capsule,delayed release(DR/EC) 20 mg PO DAILY PRN (Reason: Acid Reflux) Men's 50 Plus Multivitamin 400-20-370 mcg Tablet 1 tab PO DAILY Miralax 17 gram powder in packet 17 g PO BEDTIME PRN (Reason: Constipation) Rx Instructions: Take 1 packet by mouth at bedtime as needed for constipation metoprolol tartrate 25 mg tablet 25 mg PO BID Discharge Orders: Discharge ED (Routine); Ordered 12/30/21 Ordered By: Fe Vázquez Referrals: Mee Natarajan MD [Primary Care Provider] - 1-3 days Discharge Diet: Advance as tolerated Discharge Activity: Resume usual activity Patient Instructions: Pneumonia (ED) Coding Level of Care Code ED [place] 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
[2021-12-30] MEDS: HYDROmorphone 1 mg/mL INJ 1 mL IVP (02:04)
[2021-12-30] MEDS: ondansetron 2 mg/ML SDV 2 mL 4 MG IVP (02:05)
[2021-12-30 02:12] VITALS: BP 142/77; PULSE 72; RESP 20; TEMP 37.6; O2SAT 95
[2021-12-30 02:22] LABS: Basophils % 0.2 %; Eosinophils # 0.2 10^3/uL (0.0-0.8); Eosinophils % 2.3 %; Hemoglobin 12.3 g/dL (11.7-16.6); Lymphocytes # 0.8 10^3/uL (0.8-4.8); Lymphocytes % 11.7 %; Mean Corpuscular HGB Conc 33.2 g/dL (30.0-36.0); Mean Corpuscular Hemoglobin 32.1 pg (28.0-34.0); Mean Corpuscular Volume 96.6 fl (80-94); Mean Platelet Volume 9.5 fL (7.4-10.4); Monocytes # 0.6 10^3/uL (0.2-0.9); Monocytes % 9.1 %; Neutrophils # 4.89 10^3/uL (1.8-7.7); Neutrophils % 76.4 %; Nucleated Red Blood Cells % 0 %; Platelet Count 116 10^3/cmm (130-400); Red Blood Count 3.83 10^6/uL (4.1-5.3); Red Cell Distribution Width 12.6 % (12.1-15.1); White Blood Count 6.4 10^3/uL (4.0-10.0)
--- NOTE | 2021-12-30 02:31 | CTR_ITS ---
PROCEDURE INFORMATION: Exam: CT Abdomen And Pelvis With Contrast Exam date and time: 12/30/2021 2:54 AM Age: 76 years old Clinical indication: Abdominal pain; Generalized; Prior surgery; Surgery type: Gb; Patient HX: C/O diffuse abd and back pain. ; Additional info: Abd pain TECHNIQUE: Imaging protocol: Computed tomography of the abdomen and pelvis with contrast. Radiation optimization: All CT scans at this facility use at least one of these dose optimization techniques: automated exposure control; mA and/or kV adjustment per patient size (includes targeted exams where dose is matched to clinical indication); or iterative reconstruction. Contrast material: OMNI 350; Contrast volume: 75 ml; Contrast route: INTRAVENOUS (IV); COMPARISON: CT abdomen pelvis w con* [id number] 12/28/2021 12:50 PM RADIATION DOSE METRICS: Total DLP (mGy-cm): 840.53 FINDINGS: Lungs: Mild right posterior basilar pneumonia. Liver: Normal. No mass. Gallbladder and bile ducts: Stable cholecystectomy. Pancreas: Normal. No ductal dilation. Spleen: Normal. No splenomegaly. Adrenal glands: Normal. No mass. Kidneys and ureters: One or more nonobstructing left renal calyceal stones. Right renal simple cyst measuring >1.0 cm . Multiple left renal hypodensities with the largest measuring < 1.0 cm, too small to further characterize. Stomach and bowel: Unremarkable. No obstruction. No mucosal thickening. Appendix: Normal appendix. Intraperitoneal space: Unremarkable. No free air. No significant fluid collection. Vasculature: One or more calcified pelvic phleboliths. Lymph nodes: Unremarkable. No enlarged lymph nodes. Urinary bladder: Unremarkable as visualized. Reproductive: Unremarkable as visualized. Bones/joints: Apparent bony fusion of L3, L4 and L5 vertebral bodies. Soft tissues: Unremarkable. CT/CT abdomen pelvis w con* [id number] IMPRESSION: 1. Mild right posterior basilar pneumonia. 2. No acute abdominal findings. COMMENTS: Consistent with the [employer]'s Incidental Findings Committee white paper (J Am Triston Radiol 2018): Any incidental renal lesion less than 1 cm or classified as too small to characterize, or any incidental cystic renal lesion characterized as simple-appearing, is likely benign. No follow-up imaging is recommended for these lesions per consensus recommendations based on imaging criteria.
[2021-12-30 02:45] LABS: Troponin(5th) Baseline 19 ng/L (0-15)
[2021-12-30] MEDS: acetaminophen 500 mg Tablet 1000 MG PO (03:01)
[2021-12-30] MEDS: iohexol 350 mg/mL 500 mL Btl (per mL) IV (03:07)
--- NOTE | 2021-12-30 03:15 | ECG_ITS ---
[facility] Test Date: 2021-12-30 Pat Name: Mike Silva Department: Room: Gender: Male Transfusion Nurse: : 1945 Requested By: Fe Vázquez Order Number: [id number] Cheko MD: Earle Nielsen M.D. Measurements Intervals Cascade Rate: 72 P: 36 OK: 155 QRS: -1 QRSD: 92 T: 57 QT: 332 QTc: 365 Interpretive Statements SINUS RHYTHM LOW QRS VOLTAGE IN PRECORDIAL LEADS [QRS DEFLECTION < 1.0 mV IN CHEST LEADS] MINIMAL VOLTAGE CRITERIA FOR LVH, CONSIDER NORMAL VARIANT [MEETS CRITERIA IN ONE OF: R(aVL), S(V1), R(V5), R(V5/V6)+S(V1)] PROBABLE ANTEROSEPTAL MYOCARDIAL INFARCTION , OF INDETERMINATE AGE [35 ms Q WAVE IN V1-V4] Compared to ECG 12/30/2021 01:43:01 Low QRS voltage now present Myocardial infarct finding still present Electronically Signed On 12-30-2021 21:52:41 CDT by Earle Nielsen M.D. [email or web address]
[2021-12-30 03:46] LABS: Alanine Aminotransferase 8 U/L (0-41); Albumin Level 3.2 g/dL (3.5-5.2); Alkaline Phosphatase 79 U/L (40-130); Anion Gap 13.7 (5-19); Aspartate Amino Transferase 8 U/L (0-40); Blood Urea Nitrogen 38 mg/dL (8-23); Calcium 9.7 mg/dL (8.5-10.5); Carbon Dioxide 24 mmol/L (22-29); Chloride 102 mmol/L (98-107); Globulin 2.9 g/dL (1.3-4.6); Glucose 117 mg/dL (65-115); Lipase 25 U/L (13-60); Osmolality Calculated 292 mOsm/kg (285-295); Potassium 3.7 mmol/L (3.5-5.1); Sodium 136 mmol/L (136-145); Total Bilirubin 0.5 mg/dL (0.15-1.2); Total Protein 6.1 g/dL (6.6-8.7)
[2021-12-30 03:54] LABS: Bilirubin Urine Neg (Negative); Blood Urine Neg (Negative); Glucose Urine UA Norm (Normal); Ketones Urine Negative (Negative); Nitrate Urine Negative (Negative); Protein Urine Trace (Negative); Specific Gravity, Urine 1.015 (1.005-1.030); Urine Appearance Clear (CLEAR); Urine Color Yellow (Yellow); pH Urine 5 (5-7)
[2021-12-30 03:55] LABS: Add Urine Culture? No; Add Urine Microscopic? YES; Bacteria Urine TRACE /hpf; Leukocyte Esterase Urine Trace (Negative); Urobilinogen Urine Norm (Negative)
[2021-12-30] MEDS: doxycycline 100 mg Tablet PO (04:26)
[2021-12-30 04:58] LABS: SARS Covid-2 Antigen negative (Negative)
[2021-12-30 06:16] VITALS: BP 140/68; PULSE 70; RESP 18; TEMP 37.1; O2SAT 95
== END 2021-12-30 06:20 | disposition home or self-care (01) ==
PROVIDERS: Emergency Provider Emergency Medicine; PCP Internal Medicine
DX: J18.9 Pneumonia, unspecified organism (principal); Z20.822 Contact with and (suspected) exposure to COVID-19; Z79.82 Long term (current) use of aspirin; I12.9 Hypertensive chronic kidney disease with stage 1 through stage 4 chronic kidney disease, or unspecified chronic kidney disease; N18.30 Chronic kidney disease, stage 3 unspecified; Z86.73 Personal history of transient ischemic attack (TIA), and cerebral infarction without residual deficits; Z85.828 Personal history of other malignant neoplasm of skin
CPT/HCPCS: 71045; 74177; 80053; 81001; 83690; 84484; 85025; 85610; 87426; 93005; 96374; 96375; 99285; J1170; J2405; Q9967

== ENCOUNTER 2021-12-30 06:17 | Outpatient (CLI) | payer MEDICARE, MEDICAID, SELFPAY ==
--- NOTE | 2021-12-30 06:30 | CT_ITS ---
WS: [id number] CT RIGHT knee, noncontrast HISTORY: pre op planning TECHNIQUE: Protocol for GUILHERME total knee replacement has been obtained. This includes axial imaging th rough the same side RIGHT hip, RIGHT knee and RIGHT ankle. DLP: 1042.42 mGy-cm. COMPARISON: None available. Mild degenerative changes at the RIGHT hip joint. No destructive bone lesions. Moderate to advanced j oint space narrowing with hypertrophic bone formation at the knee. Moderate-sized suprapatellar joint effusion. No fracture or significant joint space narrowing at the ankle. There is high density contrast in the distal ureters and urinary bladder from a recent CT with IV con trast. CT/CT knee RT [facility] IMPRESSION: CT imaging provided for [facility] robotic total knee replacement.
== END 2021-12-30 06:18 | disposition home or self-care (01) ==
LOC: RAD 06:17
PROVIDERS: PCP Internal Medicine; Visit Provider Orthopaedic Surgery
DX: Z01.818 Encounter for other preprocedural examination (principal); M17.11 Unilateral primary osteoarthritis, right knee
CPT/HCPCS: 73700

== ENCOUNTER → 2022-01-06 14:24 | Outpatient (BNVA) | payer MEDICARE, MEDICAID, SELFPAY | PROVIDERS: PCP Internal Medicine; Visit Provider Podiatrist Foot & Ankle Surgery | DX: M19.172 Post-traumatic osteoarthritis, left ankle and foot (principal); M25.372 Other instability, left ankle | CPT/HCPCS: 20605 ==

== ENCOUNTER 2022-01-19 11:50 | Emergency (ER) | payer MEDICARE, MEDICAID, SELFPAY ==
[2022-01-19 12:15] VITALS: BMI 31.0
--- NOTE | 2022-01-19 12:28 | XR_ITS ---
WS: [id number] CHEST 2 VIEWS HISTORY: cough, congestion COMPARISON: 12/30/2021 Lungs: Clear with no abnormality. Resolved interstitial edema infiltrate below the RIGHT hilum. No pl eural effusion or pneumothorax. Cardiac size: Normal. Mediastinum/Aorta: Normal mediastinum. Bones: Normal. XR/XR chest 2V* [id number] IMPRESSION: Resolved interstitial infiltrate RIGHT lower lobe. No pneumonia.
--- NOTE | 2022-01-19 12:31 | W.ED.GENADLT ---
HPI - General Adult General: Chief complaint: General Medical Stated complaint: congestion Time Seen by Provider: 01/19/22 12:31 History of Present Illness: 76-year-old male patient comes in today with complaints of cough and chest congestion for about 8 days. Patient had pneumonia at the first of the month and had recovered from it and then over the last week became ill again. Patient has been vaccinated for COVID-19 and influenza. Patient appears mildly unwell but not toxic at all. Patient has a history of hypertension, renal calculus, and anxiety disorder. Associated symptoms: Deny chest pain, dyspnea or vomiting Review of Systems Const: Denies: fever(s) Card: Denies: chest pain Resp: Reports: non-productive cough; Denies: dyspnea GI: Denies: vomiting PFSH ED PFSH: Medical History Anxiety Basal cell carcinoma, 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) Left, s/p Mohs Chronic kidney disease, stage III (moderate) COVID-19 (10/16/20) Depression GERD (gastroesophageal reflux disease) History of cardiac arrhythmia Has has documented transient atrial fibrillation/flutter with rapid ventricular response with spontaneous conversion to sinus rhythm in 2013 post op, again 2017 during acute illness History of nonmelanoma skin cancer Hyperparathyroidism (04/08/20) Hypertension Meatal stenosis Obesity (BMI 30.0-34.9) Osteoarthritis involving multiple joints on both sides of body Neck, back & rt knee and rt AC joint Postprocedural urethral stricture Recurrent UTI Squamous cell carcinoma of penis TIA (transient ischemic attack) Surgical History History of excision of mass (07/2015) Penile lesion, by Dr Encinas. Procedure done: 1. Dorsal relaxing incision to expose penile mass 2. Wide excision of invasive appearing penile lesion consistent grossly with squamous cell carcinoma. Involving the glans penis and incompletely resected. Squamous cell carcinoma History of knee surgery (10/2011) Dr Andres. Right knee arthroscopy, chondroplasty patella, medial femoral condyle, lateral femoral condyle and mild debridement of the posterior horn lateral meniscus. History of laparoscopic cholecystectomy History of repair of right rotator cuff (04/2020) Dr Wolfe, Arthroscopic repair right rotator cuff, limited debridement including biceps tenotomy, labral debridement, subacromial bursectomy, and subacromial decompression History of surgery on upper extremity Left, s/p fracture S/P Mohs surgery for basal cell carcinoma Left arm 10/2021 Back planned 10/2021 Family History Mother , in her 80's Stroke Father , in his 60's Alcoholic Denies family history of Anesthesia complication Bleeding disorder Social History Smoking and tobacco status: never smoked Second hand smoke exposure: No Alcohol intake: never Adopted: No Caregiver/support person: Yes Lives independently: Yes Household members: family and other Details: Son, grandson at house Housing: House Marital status: / Highest education level completed: High School Graduate service: No Current occupational status: retired Sexually active: No Current gender identity: Male Tri/Restorationism: Restorationism Special tri needs: No Physical Exam Const: COMMON NORMALS: alert HENMT: MOUTH: Normal oral and palatal mucosa present THROAT: posterior oropharynx normal Neck/C-Spine: COMMON NORMALS: full ROM Resp: COMMON NORMALS: normal respiratory effort AUSCULTATION: diminished lung sounds (Bilateral bases) Cardio: COMMON NORMALS: regular rate and regular rhythm RATE: regular rate RHYTHM: regular rhythm GI: COMMON NORMALS: non-tender Extremity: COMMON NORMALS: no pedal edema Neuro: SENSORIUM/ORIENTATION: Yes alert Skin: COMMON NORMALS: turgor normal GENERAL SKIN EXAM: turgor normal MDM - General Adult Medical Decision Making Patient came in today for 1 week episode of cough and sore throat. Patient had pneumonia at the first of the month. Patient appears nontoxic. Patient appears in no pain. On exam patient has decreased breath sounds in the bases. Vital signs are unremarkable. Differential diagnosis includes but not limited to pneumonia, upper respiratory infection, bronchitis. Chest x-ray noted no pneumonia. Patient be treated for bronchitis with 10 mg of dexamethasone x1 and doxycycline 100 mg twice daily for 7 days. Encourage patient to drink plenty of fluids. Take antibiotics as directed. Follow-up with primary care for further instruction. Return to ED for new concerns or worsening symptoms. Lab Data Radiology Impressions Chest X-Ray 01/19/22 12:28 IMPRESSION: Resolved interstitial infiltrate RIGHT lower lobe. No pneumonia. Discharge Plan Discharge Patient Disposition: Home Clinical Impression: Bronchitis Condition: Stable Prescriptions: New doxycycline monohydrate 100 mg capsule 100 mg PO BID 5 Days Qty: 10 0RF No Action ascorbic acid (vitamin C) 1,000 mg tablet 1 g PO BID amlodipine 5 mg tablet 5 mg PO DAILY (DME) AFO to the Left See Rx Instructions .Route .MEDSUPPLY Qty: 1 0RF Rx Instructions: As directed J P & O alprazolam 1 mg tablet 1 mg PO BID PRN (Reason: anxiety) 30 Days Qty: 60 2RF Rx Instructions: Reset 30 days since his medication was loss hydrochlorothiazide 12.5 mg tablet See Rx Instructions .ROUTE .COMPLEX Qty: 30 3RF Dose Instruction: TAKE 1 TABLET BY MOUTH EVERY MORNING FOR BLOOD PRESSURE and edema Rx Instructions: TAKE 1 TABLET BY MOUTH EVERY MORNING FOR BLOOD PRESSURE and edema metoprolol tartrate 25 mg tablet See Rx Instructions .ROUTE .COMPLEX Qty: 60 5RF Dose Instruction: TAKE 2 TABLETS BY MOUTH TWICE DAILY FOR BLOOD PRESSURE meds Rx Instructions: TAKE 2 TABLETS BY MOUTH TWICE DAILY FOR BLOOD PRESSURE meds meloxicam 15 mg tablet See Rx Instructions .ROUTE .COMPLEX Qty: 30 2RF Dose Instruction: TAKE 1 TABLET BY MOUTH EVERY DAY NEEDED FOR arthritis pain Rx Instructions: TAKE 1 TABLET BY MOUTH EVERY DAY NEEDED FOR arthritis pain cefpodoxime 200 mg tablet 200 mg PO BID Qty: 20 0RF Rx Instructions: must administer with a meal/food hydrocodone-acetaminophen 5-325 mg tablet 1 tab PO Q6H PRN (Reason: pain) Qty: 14 0RF hydrocodone-acetaminophen 10-325 mg tablet 1 - 2 tab PO QID PRN (Reason: Pain) fluvoxamine 50 mg tablet 50 mg PO BID lisinopril 20 mg tablet 20 mg PO DAILY Qty: 20 0RF Aspir-81 81 mg Tablet,Delayed Release (Dr/Ec) 81 mg PO DAILY methenamine hippurate 1 gram tablet 1 g PO BID mirtazapine 15 mg tablet 15 mg PO BEDTIME omeprazole 20 mg capsule,delayed release(DR/EC) 20 mg PO DAILY PRN (Reason: Acid Reflux) Men's 50 Plus Multivitamin 400-20-370 mcg Tablet 1 tab PO DAILY Miralax 17 gram powder in packet 17 g PO BEDTIME PRN (Reason: Constipation) Rx Instructions: Take 1 packet by mouth at bedtime as needed for constipation Discharge Orders: Discharge ED (Routine); Ordered 01/19/22 Ordered By: Young Lujan Referrals: Mee Natarajan MD [Primary Care Provider] - Discharge Diet: Usual diet Discharge Activity: Increase activity as tolerated Patient Instructions: Acute Bronchitis (ED) Activity Restrictions/Additional Instructions: Drink plenty of fluids. Take antibiotics as directed for the next 5 days. Use acetaminophen for fever and discomfort. Continue with Mucinex to help with cough and congestion. Follow-up with primary care in 3 to 5 days as needed. Return to ER for worsening symptoms such as increased shortness of breath, chest pain, inability to hold fluids down, or new concerns. Coding Level of Care Code ED Television Camera Operator for Chg Fwd Exam Comprehensive
[2022-01-19] MEDS: dexamethasone 10 mg/mL INJ IM (13:45)
[2022-01-19] MEDS: doxycycline 100 mg Tablet PO (13:45)
== END 2022-01-19 13:50 | disposition home or self-care (01) ==
PROVIDERS: Emergency Provider Nurse Practitioner Family; PCP Internal Medicine
DX: J40 Bronchitis, not specified as acute or chronic (principal); Z79.82 Long term (current) use of aspirin; I12.9 Hypertensive chronic kidney disease with stage 1 through stage 4 chronic kidney disease, or unspecified chronic kidney disease; N18.30 Chronic kidney disease, stage 3 unspecified; Z86.73 Personal history of transient ischemic attack (TIA), and cerebral infarction without residual deficits
CPT/HCPCS: 71046; 96372; 99284; J1100

== ENCOUNTER → 2022-01-21 14:52 | Outpatient (BNVA) | payer MEDICARE, MEDICAID, SELFPAY | PROVIDERS: PCP Internal Medicine; Visit Provider Orthopaedic Surgery | DX: M17.11 Unilateral primary osteoarthritis, right knee (principal) | CPT/HCPCS: 99213 ==

== ENCOUNTER → 2022-02-04 08:50 | Outpatient (BNVA) | payer MEDICARE, MEDICAID, SELFPAY | PROVIDERS: PCP Internal Medicine; Visit Provider Orthopaedic Surgery | DX: M17.11 Unilateral primary osteoarthritis, right knee (principal) | CPT/HCPCS: 99212 ==

== ENCOUNTER 2022-03-04 08:33 | Emergency (ER) | payer MEDICARE, MEDICAID, SELFPAY ==
--- NOTE | 2022-03-04 08:42 | XR_ITS ---
WS: [id number] Portable AP upright chest, 03/04/2022 Clinical Data: dyspnea/cough Comparison: PA and lateral chest, 01/19/2022 Findings: No nodules, masses or effusions are seen. The heart is normal. The pulmonary vascularity is not increased. No pneumonia or pneumothorax is seen. The aortic arch and descending thoracic aorta s how tortuosity. XR/XR chest 1V portable [id number] Impression: Atherosclerosis.
[2022-03-04 08:43] VITALS: BP 119/82; PULSE 112; RESP 19; TEMP 39.1; O2SAT 96; BMI 31.0
[2022-03-04 08:46] VITALS: BP 145/94; PULSE 99; O2SAT 96
--- NOTE | 2022-03-04 09:12 | W.ED.FEVER ---
HPI - Fever General: Chief Complaint: Fever Stated Complaint: abd, back pain Time Seen by Provider: 03/04/22 08:35 Source: patient Mode of arrival: ambulatory History of Present Illness: 76-year-old male presents emergency room with complaint of abdominal pain and fever that began overnight. He states yesterday today felt his normal self he has pain across his abdomen particularly in his right flank and suprapubic area he presents with a fever. No vomiting or diarrhea he has had a slight minimally productive cough for the last few days as well fever began just last night. He has not had any diarrhea. He is complaining of generalized myalgias as well. Patient has a history of urethral stricture recurrent UTIs squamous cell CA of the penis. MD elicited complaint: fever and malaise Onset (ago): hour(s) Exacerbating factors: nothing Relieving factors: nothing Associated symptoms: Reports abdominal pain, flank pain, chills, cough, dysuria, myalgias and nausea; Deny chest pain, confusion, diarrhea, extremity pain, headache(s), nasal congestion, night sweats, rash, rhinorrhea, short of breath, sinus pain, stiffness, sore throat or vomiting Treatments prior to arrival fever: none Review of Systems Const: Reports: fever(s), chills, change in appetite, fatigue and malaise; Denies: night sweats ENMT: Denies: throat pain, ear or mastoid pain, nasal congestion or sinus pain Card: Denies: chest pain Resp: Reports: dyspnea and non-productive cough; Denies: productive cough GI: Reports: abdominal pain and nausea; Denies: vomiting or diarrhea : Reports: flank pain and dysuria; Denies: urinary frequency or urinary urgency Musc: Denies: extremity pain Skin/Breast: Denies: rash or pruritus Neuro: Denies: headache(s) or confusion PFS ED PFSH: Medical History (Updated 03/04/22 @ 11:42 by Elvis Becker DO) Allergic rhinitis due to allergen Anxiety Basal cell carcinoma, 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) Left, s/p Mohs Chronic kidney disease, stage III (moderate) COVID-19 (10/16/20) Depression GERD (gastroesophageal reflux disease) History of cardiac arrhythmia Has has documented transient atrial fibrillation/flutter with rapid ventricular response with spontaneous conversion to sinus rhythm in 2013 post op, again 2017 during acute illness History of nonmelanoma skin cancer Hyperparathyroidism (04/08/20) Hypertension Meatal stenosis Obesity (BMI 30.0-34.9) Osteoarthritis involving multiple joints on both sides of body Neck, back & rt knee and rt AC joint Postprocedural urethral stricture Recurrent UTI Squamous cell carcinoma of penis TIA (transient ischemic attack) Surgical History History of excision of mass (07/2015) Penile lesion, by Dr Encinas. Procedure done: 1. Dorsal relaxing incision to expose penile mass 2. Wide excision of invasive appearing penile lesion consistent grossly with squamous cell carcinoma. Involving the glans penis and incompletely resected. Squamous cell carcinoma History of knee surgery (10/2011) Dr Andres. Right knee arthroscopy, chondroplasty patella, medial femoral condyle, lateral femoral condyle and mild debridement of the posterior horn lateral meniscus. History of laparoscopic cholecystectomy History of repair of right rotator cuff (04/2020) Dr Wolfe, Arthroscopic repair right rotator cuff, limited debridement including biceps tenotomy, labral debridement, subacromial bursectomy, and subacromial decompression History of surgery on upper extremity Left, s/p fracture S/P Mohs surgery for basal cell carcinoma Left arm 10/2021 Back planned 10/2021 Family History Mother , in her 80's Stroke Father , in his 60's Alcoholic Denies family history of Anesthesia complication Bleeding disorder Social History Smoking and tobacco status: never smoked Second hand smoke exposure: No Alcohol intake: never Adopted: No Caregiver/support person: Yes Lives independently: Yes Household members: family and other Details: Son, grandson at house Housing: House Marital status: / Highest education level completed: High School Graduate service: No Current occupational status: retired Sexually active: No Current gender identity: Male Tri/Hinduism: Amish Special tri needs: No Physical Exam Const: GENERAL APPEARANCE: cooperative and comfortable ORIENTATION/CONSCIOUSNESS: Yes awake, Yes oriented to person, Yes oriented to place and Yes oriented to time HENMT: COMMON NORMALS: normocephalic and atraumatic HEAD & SCALP: normocephalic and atraumatic Resp: COMMON NORMALS: normal respiratory effort, No retractions, No use of accessory muscles and clear to auscultation bilaterally AUSCULTATION: clear to auscultation bilaterally Cardio: COMMON NORMALS: regular rate, regular rhythm and No murmurs present (Cardio) RATE: regular rate RHYTHM: regular rhythm GI: COMMON NORMALS: Soft to palpation and No hepatosplenomegaly present AUSCULTATION: Yes normoactive bowel sounds PALPATION: Yes Soft to palpation, No Tenderness to palpation present (GI), No Guarding due to palpation present (GI) and Yes No hepatosplenomegaly present : BLADDER/KIDNEY EXAM: Yes CVA tenderness Back/Pelvis: GENERAL BACK: Yes CVA tenderness CVA tenderness: right Extremity: COMMON NORMALS: normal to inspection, capillary refill normal, no clubbing, cyanosis or edema, no calf tenderness and no pedal edema Neuro: SENSORIUM/ORIENTATION: Yes oriented to person, Yes oriented to place and Yes oriented to time Skin: COMMON NORMALS: no rashes or lesions noted GENERAL SKIN EXAM: no rashes or lesions noted Course Vital Signs: Vital signs: Vital Signs Temperature 99.3 F 03/04/22 09:58 Pulse Rate 76 03/04/22 12:03 Respiratory Rate 19 H 03/04/22 08:43 Blood Pressure 141/78 03/04/22 12:03 Pulse Oximetry 96 03/04/22 12:03 Oxygen Delivery Me thod 03/04/22 11:00 MDM - Fever Medical Decision Making Patient has a cystitis. His white count is normal. Concerned about his fever and his degree of pain he does not really want to be admitted we will discharge him home on Cipro have him follow-up with his primary care doctor cultures pending. Return if is further problems. Stressed with the patient that if he is recurrent fever he should recheck. Medical Records I reviewed the patient's medical records. Lab Data I reviewed the patient's lab results. 03/04/22 09:35 03/04/22 09:35 Radiology Impressions Chest X-Ray 03/04/22 08:42 Impression: Atherosclerosis. Abdomen/Pelvis CT 03/04/22 09:34 IMPRESSION: Left renal staghorn calculi in the lower pole. No right-sided nephrolithiasis. No signs of urinary obstruction. COMMENTS: Evaluation of solid organs and vascular structures is limited as no IV contrast was administered. Laboratory Results WBC 9.0 10^3/uL (4.0-10.0) 03/04/22 09:35 RBC 4.18 10^6/uL (4.1-5.3) 03/04/22 09:35 Hgb 13.4 g/dL (11.7-16.6) 03/04/22 09:35 Hct 40.8 % (42.0-52.0) L 03/04/22 09:35 MCV 97.6 fl (80-94) H 03/04/22 09:35 MCH 32.1 pg (28.0-34.0) 03/04/22 09:35 MCHC 32.8 g/dL (30.0-36.0) 03/04/22 09:35 RDW 13.2 % (12.1-15.1) 03/04/22 09:35 Plt Count 141 10^3/cmm (130-400) 03/04/22 09:35 MPV 8.6 fL (7.4-10.4) 03/04/22 09:35 Neut % (Auto) 82.2 % 03/04/22 09:35 Lymph % (Auto) 8.7 % 03/04/22 09:35 Aiken % (Auto) 7.8 % 03/04/22 09:35 Eos % (Auto) 0.8 % 03/04/22 09:35 Baso % (Auto) 0.2 % 03/04/22 09:35 Neut # (Auto) 7.36 10^3/uL (1.8-7.7) 03/04/22 09:35 Lymph # (Auto) 0.8 10^3/uL (0.8-4.8) 03/04/22 09:35 Aiken # (Auto) 0.7 10^3/uL (0.2-0.9) 03/04/22 09:35 Eos # (Auto) 0.1 10^3/uL (0.0-0.8) 03/04/22 09:35 Baso # (Auto) 0.0 10^3/uL (0.0-0.1) 03/04/22 09:35 Nucleated RBC % (auto) 0 % 03/04/22 09:35 Nucleated RBCs # 0.0 /100WBC 03/04/22 09:35 Sodium 137 mmol/L (136-145) 03/04/22 09:35 Potassium 3.9 mmol/L (3.5-5.1) 03/04/22 09:35 Chloride 104 mmol/L (98-107) 03/04/22 09:35 Carbon Dioxide 20 mmol/L (22-29) L 03/04/22 09:35 Anion Gap 16.9 (5-19) 03/04/22 09:35 BUN 30 mg/dL (8-23) H 03/04/22 09:35 Creatinine 1.4 mg/dL (0.7-1.2) H 03/04/22 09:35 GFR Calculation Not Reportable 03/04/22 09:35 Glucose 120 mg/dL (65-115) H 03/04/22 09:35 Calculated Osmolality 291 mOsm/kg (285-295) 03/04/22 09:35 Calcium 10.1 mg/dL (8.5-10.5) 03/04/22 09:35 Total Bilirubin 0.9 mg/dL (0.15-1.2) 03/04/22 09:35 AST 18 U/L (0-40) 03/04/22 09:35 ALT 21 U/L (0-41) 03/04/22 09:35 Alkaline Phosphatase 112 U/L (40-130) 03/04/22 09:35 Total Protein 6.7 g/dL (6.6-8.7) 03/04/22 09:35 Albumin 4.1 g/dL (3.5-5.2) 03/04/22 09:35 Globulin 2.6 g/dL (1.3-4.6) 03/04/22 09:35 Urine Color Yellow (Yellow) 03/04/22 09:00 Urine Appearance Clear (CLEAR) 03/04/22 09:00 Urine pH 6 (5-7) 03/04/22 09:00 Ur Specific Cunningham 1.015 (1.005-1.030) 03/04/22 09:00 Urine Protein Trace (Negative) 03/04/22 09:00 Urine Glucose (UA) Norm (Normal) 03/04/22 09:00 Urine Ketones Negative (Negative) 03/04/22 09:00 Urine Blood Neg (Negative) 03/04/22 09:00 Urine Nitrate Negative (Negative) 03/04/22 09:00 Urine Bilirubin Neg (Negative) 03/04/22 09:00 Urine Urobilinogen Neg mg/dL (Negative) 03/04/22 09:00 Ur Leukocyte Esterase 1+ (Negative) H 03/04/22 09:00 Urine RBC None /hpf (0-2) 03/04/22 09:00 Urine WBC 25-40 /hpf (0-5) H 03/04/22 09:00 Ur Squamous Epith Cells 0-4 /hpf (0-5) H 03/04/22 09:00 Amorphous Sediment Not Reportable 03/04/22 09:00 Urine Bacteria 3+ /hpf (NONE) H 03/04/22 09:00 Influenza Type A Ag negative (Negative) 03/04/22 09:00 Influenza Type B Ag negative (Negative) 03/04/22 09:00 Discharge Plan Discharge Patient Disposition: Home Clinical Impression: Recurrent UTI Condition: Stable Prescriptions: New Cipro 500 mg tablet 500 mg PO Q12H 10 Days Qty: 20 0RF No Action ascorbic acid (vitamin C) 1,000 mg tablet 1,000 mg PO BID amlodipine 5 mg tablet 5 mg PO DAILY (DME) AFO to the Left See Rx Instructions .Route .MEDSUPPLY Qty: 1 0RF Rx Instructions: As directed J P & O alprazolam 1 mg tablet 1 mg PO BID PRN (Reason: anxiety) 30 Days Qty: 60 2RF hydrocodone-acetaminophen 10-325 mg tablet 1 - 2 tab PO QID PRN (Reason: Pain) fluvoxamine 50 mg tablet 50 mg PO BID lisinopril 20 mg tablet 20 mg PO DAILY Qty: 20 0RF aspirin [Aspir-81] 81 mg Tablet,Delayed Release (Dr/Ec) 81 mg PO DAILY methenamine hippurate 1 gram tablet 1 g PO BID mirtazapine 15 mg tablet 15 mg PO BEDTIME omeprazole 20 mg capsule,delayed release(DR/EC) 20 mg PO DAILY Men's 50 Plus Multivitamin 400-20-370 mcg Tablet 1 tab PO DAILY meloxicam 15 mg tablet 15 mg PO DAILY PRN (Reason: Pain) cyproheptadine 4 mg tablet 4 mg PO BEDTIME metoprolol tartrate 25 mg tablet 50 mg PO BID hydrochlorothiazide 12.5 mg tablet 12.5 mg PO DAILY Discharge Orders: Discharge ED (Routine); Ordered 03/04/22 Ordered By: Elvis Becker Referrals: Mee Natarajan MD [Primary Care Provider] - Discharge Diet: Usual diet Discharge Activity: Increase activity as tolerated Patient Instructions: Opioid Safety, Pain Management Activity Restrictions/Additional Instructions: Oral antibiotics today 1 pill twice daily for 10 days follow-up with Dr. Encinas if not improving if symptoms worsen or you have persistent fever return to the emergency room immediately. Coding Level of Care Code ED Interpretive Naturalist for Chg Fwd Exam Comprehensive
[2022-03-04 09:16] VITALS: BP 145/94; PULSE 93; O2SAT 92
--- NOTE | 2022-03-04 09:17 | ECG_ITS ---
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 Measurements Intervals [place] Rate: 86 P: 40 SC: 148 QRS: -2 QRSD: 89 T: 68 QT: 304 QTc: 365 Interpretive Statements SINUS RHYTHM Compared to ECG 12/30/2021 03:15:13 Myocardial infarct finding no longer present Electronically Signed On 03-04-2022 10:24:22 CLINICAL LABORATORY MANAGER by Toro Fonseca M.D. [email or web address] surgical hospital at [email or web address]/store/OM/[id number]
[2022-03-04 09:31] LABS: Bilirubin Urine Neg (Negative); Blood Urine Neg (Negative); Glucose Urine UA Norm (Normal); Ketones Urine Negative (Negative); Leukocyte Esterase Urine 1+ (Negative); Nitrate Urine Negative (Negative); Protein Urine Trace (Negative); Specific Gravity, Urine 1.015 (1.005-1.030); Urine Appearance Clear (CLEAR); Urine Color Yellow (Yellow); Urobilinogen Urine Neg (Negative); pH Urine 6 (5-7)
[2022-03-04 09:32] LABS: Add Urine Microscopic? YES; Bacteria Urine 3+ /hpf; Influenza A by IFA negative (Negative); Influenza B by IFA negative (Negative); Squamous Epithelial Cell Urine 0-4 /hpf (0-5); WBC Urine 25-40 /hpf (0-5)
[2022-03-04 09:33] LABS: Add Urine Culture? Yes
--- NOTE | 2022-03-04 09:34 | CTR_ITS ---
PROCEDURE INFORMATION: Exam: CT Abdomen And Pelvis Without Contrast Exam date and time: 03/04/2022 9:47 AM Age: 76 years old Clinical indication: Abdominal pain; Additional info: Flank pain TECHNIQUE: Imaging protocol: Computed tomography of the abdomen and pelvis without contrast. Radiation optimization: All CT scans at this facility use at least one of these dose optimization techniques: automated exposure control; mA and/or kV adjustment per patient size (includes targeted exams where dose is matched to clinical indication); or iterative reconstruction. COMPARISON: CT abdomen pelvis w con* [id number] 12/30/2021 2:54 AM RADIATION DOSE METRICS: Total DLP (mGy-cm): 824.59 FINDINGS: Lungs: Trace dependent bibasilar atelectasis. Liver: The liver is normal in size and contour. Gallbladder and bile ducts: The gallbladder is surgically absent. Pancreas: The pancreas appears normal. Spleen: The spleen appears normal. Adrenal glands: The adrenals appear normal. Kidneys and ureters: 1.4 cm staghorn calculi in the lower pole the left kidney. No right-sided nephrolithiasis. No ureteral stones. No signs of urinary obstruction. Simple cyst along the lateral inferior pole the right kidney. Stomach and bowel: The stomach is unremarkable. The small bowel loops are not abnormally dilated. The large bowel loops are not abnormally dilated. Appendix: The appendix appears normal. Intraperitoneal space: No ascites or significant fluid collection. Vasculature: The aorta is nonaneurysmal. The IVC appears normal. Lymph nodes: There are no enlarged lymph nodes. Urinary bladder: The bladder is distended and demonstrates no focal contour abnormality. Reproductive: Unremarkable as visualized. Bones/joints: Multilevel degenerative changes in the spine. Fusion of the L3, L4 and L5 vertebral bodies. Soft tissues: Unremarkable. 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 No right-sided nephrolithiasis. No signs of urinary obstruction. COMMENTS: Evaluation of solid organs and vascular structures is limited as no IV contrast was administered.
[2022-03-04 09:48] LABS: Basophils % 0.2 %; Eosinophils # 0.1 10^3/uL (0.0-0.8); Eosinophils % 0.8 %; Hematocrit 40.8 % (42.0-52.0); Hemoglobin 13.4 g/dL (11.7-16.6); Lymphocytes # 0.8 10^3/uL (0.8-4.8); Lymphocytes % 8.7 %; Mean Corpuscular HGB Conc 32.8 g/dL (30.0-36.0); Mean Corpuscular Hemoglobin 32.1 pg (28.0-34.0); Mean Corpuscular Volume 97.6 fl (80-94); Mean Platelet Volume 8.6 fL (7.4-10.4); Monocytes # 0.7 10^3/uL (0.2-0.9); Monocytes % 7.8 %; Neutrophils # 7.36 10^3/uL (1.8-7.7); Neutrophils % 82.2 %; Nucleated Red Blood Cells % 0 %; Platelet Count 141 10^3/cmm (130-400); Red Blood Count 4.18 10^6/uL (4.1-5.3); Red Cell Distribution Width 13.2 % (12.1-15.1)
[2022-03-04 09:58] VITALS: TEMP 37.4
[2022-03-04 10:04] LABS: Alanine Aminotransferase 21 U/L (0-41); Albumin Level 4.1 g/dL (3.5-5.2); Alkaline Phosphatase 112 U/L (40-130); Anion Gap 16.9 (5-19); Aspartate Amino Transferase 18 U/L (0-40); Blood Urea Nitrogen 30 mg/dL (8-23); Calcium 10.1 mg/dL (8.5-10.5); Carbon Dioxide 20 mmol/L (22-29); Chloride 104 mmol/L (98-107); Globulin 2.6 g/dL (1.3-4.6); Glucose 120 mg/dL (65-115); Osmolality Calculated 291 mOsm/kg (285-295); Potassium 3.9 mmol/L (3.5-5.1); Sodium 137 mmol/L (136-145); Total Bilirubin 0.9 mg/dL (0.15-1.2); Total Protein 6.7 g/dL (6.6-8.7)
[2022-03-04 11:00] VITALS: BP 138/82; O2SAT 98
--- NOTE | 2022-03-04 11:11 | PC.NURSE ---
pt requesting hydrocodone for back pain and requesting lunch. physician notified.
[2022-03-04 12:03] VITALS: BP 141/78; PULSE 76; O2SAT 96
== END 2022-03-04 12:04 | disposition home or self-care (01) ==
PROVIDERS: Emergency Provider Family Medicine; PCP Internal Medicine
DX: N39.0 Urinary tract infection, site not specified (principal); Z79.82 Long term (current) use of aspirin; N20.0 Calculus of kidney; I12.9 Hypertensive chronic kidney disease with stage 1 through stage 4 chronic kidney disease, or unspecified chronic kidney disease; N18.30 Chronic kidney disease, stage 3 unspecified; Z86.73 Personal history of transient ischemic attack (TIA), and cerebral infarction without residual deficits; Z87.440 Personal history of urinary (tract) infections
CPT/HCPCS: 71045; 74176; 80053; 81001; 85025; 87077; 87086; 87186; 87804; 93005; 99285

== ENCOUNTER 2022-03-11 07:36 | Outpatient (CLI) | payer MEDICARE, MEDICAID, SELFPAY ==
[2022-03-11 08:06] VITALS: BMI 29.5
--- NOTE | 2022-03-11 11:00 | PC.NURSE ---
pt returned to [facility] after his first image taken. nurse took blood pressure prior to starting stress test. pt pressure 84/62. nurse waited a couple mins and took pressure again. 79/59 was new reading. again, nurse waited and took pressure- 81/60. nurse called philatelic consultant cardiopulmonary technologist chief for advice to proceed. dr stated it was unsafe to continue with test. he advised nurse to call primary dr and tell them it would be unsafe to proceed and allow the dr to make a decision with the pt. primary dr not in the office. nurse took message and was going to consult with provider and call pt later in the day. pt stated he hadnt even taken his am bp meds.
== END 2022-03-11 07:37 | disposition home or self-care (01) ==
LOC: CDL 07:38
PROVIDERS: PCP Internal Medicine; Visit Provider Internal Medicine
DX: Z53.8 Procedure and treatment not carried out for other reasons (principal)
CPT/HCPCS: 36415; J2785

== ENCOUNTER 2022-03-20 10:45 | Outpatient (CLI) | payer MEDICARE, MEDICAID, SELFPAY ==
[2022-03-20 10:50] VITALS: BMI 29.5
--- NOTE | 2022-03-20 11:08 | ECG_ITS ---
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 Interpretive Statements NAME OF STUDY: LEXISCAN SESTAMIBI STRESS TEST INDICATION: [surgical clearance, ] Procedure: At the baseline, the blood pressure was 157/91 mmHg with a heart rate of 59 bpm. The electrocardiogram showed normal sinus rhythm, normal axis with normal ST and T's. The Lexiscan was infused over a period of 20 seconds. A total of 0.4 mg of Lexiscan was infused. The stress phase was continued for a total of 5 minutes. Heart rate was at the end of stress phase was 80 bpm and a blood pressure of 149/89 mmHg. The EKG at the peak infusion revealed normal sinus rhythm with no significant ST-T wave changes. Sestamibi was injected 20 seconds after the Lexiscan infusion. Blood pressure at the end of recovery phase was 148/87 mmHg with a heart rate of 80 bpm. Conclusion: 1. Normal EKG response to Lexiscan infusion 2. No Lexiscan induced chest pain or cardiac arrhythmia. 3. Normal blood pressure and heart rate response. 4. Sestamibi/sestamibi perfusion scan pending; see separate report. Electronically Signed On 03-29-2022 20:09:05 SPANNER OPERATOR by Toro Fonseca M.D. [id number]
--- NOTE | 2022-03-20 11:09 | NMCV_ITS ---
NM tray perf SPECT r/s* [id number] Silva, Mike Age: 76 Gender: M : 1945 Exam Date: 03/20/2022 11:41 Ordering Phys: Mee Natarajan MD Technologist: DARIA Goodrich Exam Location: [facility] Indications: SURGICAL CLEARANCE STRESS TEST Please [facility] for [facility] IMAGE PROTOCOL Rest/Stress 1 Lexiscan Day Radiopharmaceutical Dose (mCi) Administration Site Administered by Rest: Tc-99m 11.0 IV Ruth Hernandez, HYDROGEN PLANT OPERATIONS MANAGER Sestamibi Stress:Tc-99m 33.0 IV Ruth Hernandez, HYDROGEN PLANT OPERATIONS MANAGER Sestamibi Rest: 03/20/2022 60 Discovery 630 Stress: 03/20/2022 30 Discovery 630 0.4mg Lexiscan. Images obtained in supine and prone position. SPECT RESULTS Technical Quality: Excellent Raw Data Analysis: Normal Image Corrections: No attenuation or motion correction applied Summed Stress Score: 0 Summed Rest Score: 1 Summed Difference Score: 0 PERFUSION FINDINGS SPECT images demonstrate homogeneous tracer distribution throughout the myocardium. FUNCTIONAL RESULTS (calculated via Gated SPECT) Stress Image LV EF (%): 78 Stress EDV (mL):86 TID: 0.98 Stress ESV (mL):19 FUNCTIONAL FINDINGS: There is normal left ventricular systolic function. IMPRESSIONS 1. Normal myocardial perfusion imaging with no evidence of ischemia 2. LV systolic function is normal Toro Fonseca MD (Electronically Signed) Final Date: 21 March 2022 10:51 S
[2022-03-20] MEDS: regadenoson 0.4 Mg/5 ml Syringe IVP (12:39)
[2022-03-20 12:42] VITALS: BP 148/87; PULSE 79
== END 2022-03-20 10:46 | disposition home or self-care (01) ==
LOC: CDL 10:45
PROVIDERS: PCP Internal Medicine; Visit Provider Internal Medicine
DX: Z01.810 Encounter for preprocedural cardiovascular examination (principal)
CPT/HCPCS: 36415; 78452; 93017; 96374; A9500; J2785

== ENCOUNTER 2022-03-23 18:19 | Observation (INO) | payer MEDICARE, MEDICAID, SELFPAY ==
[2022-03-19 13:05] VITALS: BMI 31.0
--- NOTE | 2022-03-19 15:43 | P.ANESASSM_ITS ---
Pre-Anesthetic Assessment Height/Weight: Height 1.75 m Weight 95.254 kg Preop Diagnosis: Rotator cuff tear right shoulder Operation Date: 03/23/22 12:30 Proposed Procedures p right hansa total knee arthroplasty/ 15192,M17.11(Right) - Sean Wolfe MD Familial anesthetic complications: none Was Beta Tomi taken within 24 hours: Yes Was Clonidine taken within 24 hours: N/A Social No alcohol and No tobacco Exam alert, oriented x 3, clear to auscultation bilaterally and regular rate & rhythm Airway Submandibular: within normal limits Cervical ROM: within normal limits Mallampati: Class II Dentition: false Pulmonary Chronic Obstructive Pulmonary Disease CV/HEM Atrial Fibrillation, Arrythmia and Hypertension Chronic Renal Insufficiency GI Gastroesophageal Reflux Disease Musc/skel Osteoarthritis/DJD Neuropsych Anxiety, Depression and Transient Ischemic Attack Anesthetic Plan ASA status: 3 Anesthesia: Regional (specify below) (SAB with adductor blk) Medications/Allergies Home Medications Medication Instructions Recorded Confirmed Last Taken Type ascorbic acid (vitamin C) 1,000 mg 1,000 mg PO BID 03/27/21 03/19/22 03/04/22 History tablet fluvoxamine 50 mg tablet 50 mg PO BID 05/19/21 03/19/22 03/04/22 History hydrocodone 10 mg-acetaminophen 1 - 2 tab PO QID PRN Pain 05/19/21 03/19/22 03/03/22 History 325 mg tablet lisinopril 20 mg tablet 20 mg PO DAILY #20 tabs 07/26/21 03/19/22 03/04/22 Rx AFO to the Left #1 ea 08/05/21 03/04/22 Unknown Rx amlodipine 5 mg tablet 5 mg PO DAILY 11/05/21 03/19/22 03/04/22 History aspirin 81 mg tablet,delayed 81 mg PO DAILY 12/01/21 03/19/22 12/01/21 History release methenamine hippurate 1 gram tablet 1 g PO BID 12/01/21 03/19/22 03/04/22 History [id number] acid-vit 1 tab PO DAILY 12/01/21 03/19/22 03/04/22 History K-lycop 400 mcg-20 mcg-370 mcg tablet (Men's 50 Plus Multivitamin) omeprazole 20 mg capsule,delayed 20 mg PO DAILY 12/01/21 03/19/2203/04/23 History release hydrochlorothiazide 12.5 mg tablet 12.5 mg PO DAILY 03/04/22 03/19/22 03/04/22 History metoprolol tartrate 25 mg tablet 50 mg PO BID 03/04/22 03/19/22 03/04/22 History alprazolam 1 mg tablet 1 mg PO BID PRN anxiety 30 days 03/12/22 03/19/22 Unknown Rx #60 tabs Allergies Allergy/AdvReac Type Severity Reaction Status Date / Time Penicillins Allergy Intermediate rash Verified 03/04/22 10:59 sulfamethoxazole Allergy Hallucianti Verified 03/04/22 10:59 [From Bactrim] ons trimethoprim [From Bactrim] Allergy Hallucianti Verified 03/04/22 10:59 ons [facility] Anesthesia Medical History (Updated 03/04/22 @ 11:42 by Elvis Becker, DO) Allergic rhinitis due to allergen Anxiety Basal cell carcinoma, 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) Left, s/p Mohs Chronic kidney disease, stage III (moderate) COVID-19 (10/16/20) Depression GERD (gastroesophageal reflux disease) History of cardiac arrhythmia Has has documented transient atrial fibrillation/flutter with rapid ventricular response with spontaneous conversion to sinus rhythm in 2013 post op, again 2017 during acute illness History of nonmelanoma skin cancer Hyperparathyroidism (04/08/20) Hypertension Meatal stenosis Obesity (BMI 30.0-34.9) Osteoarthritis involving multiple joints on both sides of body Neck, back & rt knee and rt AC joint Postprocedural urethral stricture Recurrent UTI Squamous cell carcinoma of penis TIA (transient ischemic attack) Surgical History History of excision of mass (07/2015) Penile lesion, by Dr Encinas. Procedure done: 1. Dorsal relaxing incision to expose penile mass 2. Wide excision of invasive appearing penile lesion consistent grossly with squamous cell carcinoma. Involving the glans penis and incompletely resected. Squamous cell carcinoma History of knee surgery (10/2011) Dr Andres. Right knee arthroscopy, chondroplasty patella, medial femoral condyle, lateral femoral condyle and mild debridement of the posterior horn lateral meniscus. History of laparoscopic cholecystectomy History of repair of right rotator cuff (04/2020) Dr Wolfe, Arthroscopic repair right rotator cuff, limited debridement including biceps tenotomy, labral debridement, subacromial bursectomy, and subacromial decompression History of surgery on upper extremity Left, s/p fracture S/P Mohs surgery for basal cell carcinoma Left arm 10/2021 Back planned 10/2021 Family History Mother , in her 80's Stroke Father , in his 60's Alcoholic Denies family history of Anesthesia complication Bleeding disorder Social History Smoking and tobacco status: never smoked Second hand smoke exposure: No Alcohol intake: never Adopted: No Caregiver/support person: Yes Lives independently: Yes Household members: family and other Details: Son, grandson at house Housing: House Marital status: / Highest education level completed: High School Graduate service: No Current occupational status: retired Sexually active: No Current gender identity: Male Tri/Lutheran: Scientologist Special tri needs: No Data Anesthesia Cardiac Studies: Echocardiogram 12/02/21
[2022-03-23] VITALS (25 sets, daily range): BP systolic 122–184; BP diastolic 60–97; PULSE 55–74; RESP 8–20; TEMP 35.9–36.7; O2SAT 92–99
[2022-03-23] MEDS: acetaminophen 500 mg Tablet 1000 MG PO ×2 (11:21→21:20)
[2022-03-23] MEDS: CELEcoxib 200 mg Capsule 400 MG PO (11:22)
[2022-03-23] MEDS: gabapentin 300 mg Capsule PO ×2 (11:23→21:20)
[2022-03-23] MEDS: oxyCODONE 20 mg ER (12 HR) Tablet PO (11:23)
[2022-03-23] MEDS: sodium chloride 0.9% 1,000 ML 30 ML IV (11:25)
--- NOTE | 2022-03-23 12:44 | P.ANESUD_ITS ---
Pre-Anesthetic Update Pre-Anesthetic Assessment: Date of Surgery/Procedure: 03/23/22 Preop Shantell gnosis: Osteoarthritis right knee Proposed Procedure: Operation Date: 03/23/22 12:30 Proposed Procedures p right hansa total knee arthroplasty/ 84523,M17.11(Right) - Sean Wolfe MD Any changes to Pre-Anesthetic Assessment?: No Last Intake: Intake Last Liquid Date 03/22/22 Last Liquid Time 19:00 Last Solid Date 03/22/22 Last Solid Time 21:00 Vitals: Temperature 97.1 F L 03/23/22 10:56 Temperature Source Temporal Artery S can 03/23/22 10:56 Pulse Rate 60 03/23/22 10:56 Respiratory Rate 18 03/23/22 11:23 Respiratory Effort 03/23/22 11:23 Respiratory Depth Normal 03/23/22 11:23 Respiratory Patter n 03/23/22 11:23 Blood Pressure 175/97 03/23/22 10:56 Blood Pressure Charu n 123 03/23/22 10:56 Pulse Oximetry 98 03/23/22 11:23 Oxygen Delivery Me thod 03/23/22 10:56 Exam: Pre-Anes Outpt Exam: alert, oriented x 3, clear to auscultation bilaterally and regular rate & rhythm Cardiac Studies: Echocardiogram 12/02/21 Sestamibi Stress Test (Cardiology) 03/20
--- NOTE | 2022-03-23 12:44 | ANES.PROC ---
Anesthesia Procedures Procedure/Date: 03/23/22 Nerve Block ^: Nerve Block 1: Main Anesthesia: spinal anesthesia block Time Out Performed: Yes Consent: requested by attending/covering physician, from patient, risks and benefits reviewed and patient agrees to proceed Nerve block location: adductor canal (R) Anesthesia monitors applied: pulse oximetry, EKG, BP cuff and oxygen Nerve block position: supine Anesthetic Used: ropivicaine 0.5% (30 ml) and with decadron (4 mg) Ultrasound used to: recognize landmarks and visualize and ID femerol nerve Nerve Stimulator Used?: No Interscalene/Femoral BLK: 4 stimuplex 21 g needle used for position and inplane approach, visualize local anesthetic spread and no vascular puncture identified Injection: neg aspiration of heme, paresthesia +/- and other Patient Tolerated Procedure: well, no complications and other Complications: none
--- NOTE | 2022-03-23 13:46 | P.HP_ITS ---
Same Day Surgery H&P Indication for Procedure/HPI DATE OF PROCEDURE: March 23, 2022 CHIEF COMPLAINT/INDICATIONFOR SURGICAL PROCEDURE: Osteoarthritis right knee here for right total knee arthroplasty PREOP DIAGNOSIS: Osteoarthritis right knee PLANNED PROCEDURE: Operation Date: 03/23/22 12:30 Proposed Procedures p right hansa total knee arthroplasty/ 64661,M17.11(Right) - Sean Wolfe MD 76 year old male patient here for right total knee arthroplasty. He states his pain has been ongoing for 10 yeas but states he had a fall 6 months ago and had immediate pain. He denies feeling a pop in his knee at the time of the fall. He states 5 years ago he was using biofreeze and had relief from it.? However things have continued to increase.? More recently he tried a topical anti- inflammatory rub which helped but is no longer working. Henies any pain relieving factors.he has always enjoyed being very active.? He is done a lot of remodeling work around his house and finds that now impossible.? he states that he feels he is ready to pursue knee replacement surgery as his overall function has declined.?? Medications/Allergies* Home Medications Medication Instructions Recorded Confirmed Type ascorbic acid (vitamin C) 1,000 mg 1,000 mg PO BID 03/27/21 03/19/22 History tablet fluvoxamine 50 mg tablet 50 mg PO BID 05/19/21 03/19/22 History hydrocodone 10 mg-acetaminophen 1 - 2 tab PO QID PRN Pain 05/19/21 03/19/22 History 325 mg tablet amlodipine 5 mg tablet 5 mg PO DAILY 11/05/21 03/19/22 History aspirin 81 mg tablet,delayed 81 mg PO DAILY 12/01/21 03/23/22 History release methenamine hippurate 1 gram tablet 1 g PO BID 12/01/21 03/19/22 History afnhxipogcap-fif-fyybt acid-vit 1 tab PO DAILY 12/01/21 03/19/22 History K-lycop 400 mcg-20 mcg-370 mcg tablet (Men's 50 Plus Multivitamin) omeprazole 20 mg capsule,delayed 20 mg PO DAILY 12/01/21 03/19/22 History release hydrochlorothiazide 12.5 mg tablet 12.5 mg PO DAILY 03/04/22 03/19/22 History metoprolol tartrate 25 mg tablet 50 mg PO BID 03/04/22 03/19/22 History Allergies/Adverse Reactions Allergy/AdvReac Type Severity Reaction Status Date / Time Penicillins Allergy Intermediate rash Verified 03/04/22 10:59 sulfamethoxazole Allergy Hallucianti Verified 03/04/22 10:59 [From Bactrim] ons trimethoprim [From Bactrim] Allergy Hallucianti Verified 03/04/22 10:59 ons Current Medications: Generic Name Dose Route Start Last Admin Trade Name Freq PRN Reason Stop Dose Admin Sodium Chloride 1,000 mls @ 30 mls/hr 03/23/22 11:00 03/23/22 11:25 Sodium Chloride 0.9% IV 03/24/22 10:59 30 mls/hr .Q24H ILIANA Administration Pertinent History/Comorbid Conditions* Medical History (Updated 03/04/22 @ 11:42 by Elvis Becker DO) Allergic rhinitis due to allergen Anxiety Basal cell carcinoma, 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) Left, s/p Mohs Chronic kidney disease, stage III (moderate) COVID-19 (10/16/20) Depression GERD (gastroesophageal reflux disease) History of cardiac arrhythmia Has has documented transient atrial fibrillation/flutter with rapid v entricular response with spontaneous conversion to sinus rhythm in 2013 post op, again 2017 during acute illness History of nonmelanoma skin cancer Hyperparathyroidism (04/08/20) Hypertension Meatal stenosis Obesity (BMI 30.0-34.9) Osteoarthritis involving multiple joints on both sides of body Neck, back & rt knee and rt AC joint Postprocedural urethral stricture Recurrent UTI Squamous cell carcinoma of penis TIA (transient ischemic attack) Surgical History (Updated 12/01/21 @ 14:30 by Denise Lance MD) History of excision of mass (07/2015) Penile lesion, by Dr Encinas. Procedure done: 1. Dorsal relaxing incision to expose penile mass 2. Wide excision of invasive appearing penile lesion consistent grossly with squamous cell carcinoma. Involving the glans penis and incompletely resected. Squamous cell carcinoma History of knee surgery (10/2011) Dr Andres. Right knee arthroscopy, chondroplasty patella, medial femoral condyle, lateral femoral condyle and mild debridement of the posterior horn lateral meniscus. History of laparoscopic cholecystectomy History of repair of right rotator cuff (04/2020) Dr Wolfe, Arthroscopic repair right rotator cuff, limited debridement including biceps tenotomy, labral debridement, subacromial bursectomy, and subacromial decompression History of surgery on upper extremity Left, s/p fracture S/P Mohs surgery for basal cell carcinoma Left arm 10/2021 Back planned 10/2021 Family History (Updated 03/27/21 @ 14:09 by Ashley High LPN) Father, in his 60's Mother, in her 80's Alcoholic Father Stroke Mother Denies family history of Anesthesia complication Bleeding disorder Social History Smoking and tobacco status: never smoked Second hand smoke exposure: No Alcohol intake: never Adopted: No Caregiver/support person: Yes Lives independently: Yes Household members: family and other Details: Son, grandson at house Housing: House Marital status: / Highest education level completed: High School Graduate service: No Current occupational status: retired Sexually active: No Current gender identity: Male Tri/Amish: Confucianist Special tri needs: No Pertinent Exam Findings alert, oriented x 3, clear to auscultation bilaterally, regular rate & rhythm and operative site marked right knee The patient has a resting varus deformity of the right knee of approximately 10 degrees. Knee lacks 15 degrees short of full extension and can flex to 100 degrees. There is crepitance of the knee is brought through range of motion. He is tender over his medial joint line. Recommendations Surgery/Procedure today Coding Level of Care Code Acute Code for Cielo Fwswati
[2022-03-23] MEDS: ceFAZolin 2,000 MG in sodium chloride 0.9% (plus) 50 ML 100 MG IV ×2 (15:28→23:43)
[2022-03-23] MEDS: tranexamic acid 1,000 mg/10mL SDV 1000 MG IV (15:35)
[2022-03-23] MEDS: tranexamic acid 1,000 mg/10mL SDV 1000 MG XX (16:11)
[2022-03-23] MEDS: EPINEPHrine 1 mg/mL INJ XX (16:11)
[2022-03-23] MEDS: ketorolac 30 mg/mL INJ XX (16:11)
--- NOTE | 2022-03-23 16:29 | SUR.OPER ---
Attempted to macias cath patient with 16fr catheter. Resistance occured on attempt. Unable to cath. Patrick BATISTA attempted to cath patient with 14fr. Coude catheter. Resistance was made and unable to cath patient. Dr. Wolfe was notified and Dr. Wolfe wanted to proceed with surgery without catheter
--- NOTE | 2022-03-23 18:04 | PM.OP ---
Operative Report Date of procedure: March 23, 2022 Pre-op diagnosis: Preop Diagnosis Osteoarthritis right knee Post-op diagnosis: same Post-op diagnosis: Same Post-op findings: Same Procedure done: Right total knee arthroplasty Implants: [place] Triathalon total knee arthroplasty components were used includin) Size 5 triathalon cruciate retaining femoral component 2) Size 6 Tritanium tibial component 3) Size 6/9 mm thickness CS tibial bearing insert Pathology: none sent Surgeon: Sean Wolfe Mission Systems Engineer: Patrick Wallace Mission Systems Engineer: The nurse practitioner the nurse practitioner assisted with critical portions of the case including positioning, draping, exposure, component implantation, closure and dressing application and is present through the entirety of the case. Anesthesia: Nerve Block (Spinal, adductor canal block) Estimated blood loss (mL): 250 Findings: The patient eburnated bone over the medial femoral condyle, lateral femoral condyle and medial tibial plateau. There was thinning of the patellar cartilage without exposed subchondral bone. The patellar component tracked well within the trochlear of the Condition: stable Disposition: PACU Procedure: The patient was taken to the operating room. Patient was given 1 g of tranexamic acid and 2 g of Ancef. The above anesthesia provided by the anesthesia service. A timeout was performed. The patient was prepped and draped in the usual fashion with the lower extremity exposed. A anterior incision was made, midline, from a point proximal to the patella to the distal tibial tubercle. The knee was entered through a medial parapatellar approach. The patella could be displaced laterally and the knee flexed. The patellar fat pad was resected to provide better visibility. Retractors were placed medially and laterally adjacent to the tibial plateau. At a point approximately 8 cm above the patella, 2 small incisions were made with a scalpel blade and 2 long threaded pins were placed into the anterior medial femur engaging both cortices. The femoral arrays were placed over these pins and secured. At a point 8 cm distal to the tibial tubercle. 2 shorter bicortical threaded pins were placed across the anterior medial tibia and the tibial arrays placed. A checkpoint was made just proximal and medial to the medial femoral condyle and just medial to the tibial plateau. Small osteotomes were placed in the joint in both flexion and extension to determine ligamentous laxity. The femoral component was placed in 3 degrees external rotation and elevated 2 mm to create equal joint spaces and extension and flexion.. The GUILHERME robot was then introduced to the field and the femur and tibia cut in accordance with our plan. he [employer] Fastseal was then used to provide hemostasis, particularly about the posterior capsule. A trial with the above components provided excellent stability and full range of motion. The femur was then prepared for the femoral pegs of the component in the tibia for the tibial component. The femur and tibia were then press-fit into place. An osteotome was used to remove the lateral 8 mm of the patella to minimize chances of later impingement. A neurectomy was accomplished circumferentially about the patella with electrocautery and lateral osteophytes removed. Surfaces were cleaned with a gentamicin solution. The femur and tibia were then press-fit into place. The posterior capsule and collateral ligaments were then injected with a solution of 100 mL of 0.2% ropivacaine, 1 mL of a 1:1000 epinephrine solution, 30 mg of Toradol, and 1 g of tranexamic acid. Final polyethylene component was then snapped into place into the tibia. The extensor retinaculum was closed with a running 1 Stratafix interrupted 1 Ethibond. The subcutaneous tissues were closed with 2-0 Vicryl and the skin was closed with a running 4-0 Stratafix. The wound was covered with a Dermabond Prineo dressing. It was covered with 4xrs and a compressive Tubigauze was applied. The patient was taken to recovery room in stable condition.
--- NOTE | 2022-03-23 18:11 | XRR_ITS ---
PROCEDURE INFORMATION: Exam: XR Right Knee Exam date and time: 03/23/2022 6:34 PM Age: 76 years old Clinical indication: Device placement; Joint fixation hardware; Additional info: Right total knee arthroplasty TECHNIQUE: Imaging protocol: Radiologic exam of the Right knee. Views: 1 or 2 views. COMPARISON: No relevant prior studies available. FINDINGS: Bones/joints: There is a satisfactory appearance of the postoperative changes right total knee arthroplasty. Soft tissues: There is gas in the soft tissues. There is soft tissue edema. No unexpected foreign body. XR/XR knee RT 1-2V 19420 IMPRESSION: Satisfactory postoperative changes.
--- NOTE | 2022-03-23 21:17 | PC.NURSE ---
Pt transferred from OR to OB Rm 9 @ 2029 via hospital bed. Pt A&Ox3 on arrival, 20 IV in left wrist. Pt displays no s/s resp distress, on R/A. Per PACU report, pt received 800 cc IVF and 250 cc EBL. Pt did not have catheter in OR and has not voided since 1700. Pt randomly self caths due to urinary stricture, but is able to void normally at times. Pt reports not needing to urinate at time of admit to OB. Family called to bring in self cath supplies due to hospital not having specific catheter type. Right knee visualized, color of extremity appropriate, dorsal pedis pulse faint, pt sensory in right foot WNL. Dressing C/D/I with ice applied. Per report dressing includes Dermabond and opsite
[2022-03-23] MEDS: oxyCODONE 5 mg IR Tab/Cap 10 MG PO (21:20)
[2022-03-23] MEDS: metoprolol tartrate 25 mg Tablet 50 MG PO (21:20)
[2022-03-23] MEDS: sodium chloride 0.9% 1,000 ML 100 ML IV (21:21)
--- NOTE | 2022-03-24 00:46 | PC.NURSE ---
Nurse just gave patient blood pressure medications patient states anytime he does not take it or is late taking it his blood pressure is high. I will retake his blood pressure in 30 minute. Patient is asymptomatic at this time.
[2022-03-24 00:50] VITALS: BP 82/48; PULSE 64; RESP 17; TEMP 36.5; O2SAT 96
[2022-03-24 02:50] VITALS: BP 150/91; PULSE 72; RESP 16; TEMP 36.7; O2SAT 97
--- NOTE | 2022-03-24 03:55 | PC.NURSE ---
This nurse heard yelling and went to see where it was coming from when i entered the room the patient said that he was bleeding from somewhere and he forgot which button to push for lights or which button to push for help. He was sitting up in bed with his gown hanging off his shoulders and he had pulled his IV out and had blood dripping down his arm. He was helped from the side of the bed to the chair in his room and then was helped to clean himself up. He sat in the chair while this nurse got help to get his bed and room cleaned. His sheets and gown were changed. Another IV was then started again as he needs more antibiotics. He was then helped from the bed back to bed and his ice pack was changed. He seemed mildly confused and stated that he has trouble remembering things sometimes but that his doctor said it was not Alzheimer. I again showed him where his call light was placed it on his abdomen and then turned his lights out for him.
[2022-03-24 04:05] LABS: Hemoglobin 11.1 g/dL (11.7-16.6)
[2022-03-24] MEDS: acetaminophen 500 mg Tablet 1000 MG PO (06:06)
[2022-03-24 06:50] VITALS: BP 133/63; PULSE 61; RESP 17; TEMP 36.6; O2SAT 97
[2022-03-24] MEDS: ceFAZolin 2,000 MG in sodium chloride 0.9% (plus) 50 ML 100 MG IV (07:36)
[2022-03-24 07:50] VITALS: RESP 18
[2022-03-24] MEDS: oxyCODONE 5 mg IR Tab/Cap 10 MG PO (07:50)
--- NOTE | 2022-03-24 08:33 | P.DS_ITS ---
Discharge Providers Date of Admission: 03/23/22 18:19 Date of Discharge: March 24, 2022 Attending Provider at Admission: Sean Wolfe MD Attending Provider at Discharge: Sean Wolfe MD Primary Care Provider: Mee Natarajan MD Reason for Visit Reason for Visit: M17.11 Brief History: 76 year old male patient admitted or right total knee arthroplasty. He states his pain has been ongoing for 10 yeas but states he had a fall 6 months ago and had immediate pain. He denies feeling a pop in his knee at the time of the fall. He was admitted for elective right total knee arthroplasty? Hospital Course Hospital Course The patient tolerated surgery well. They remained hemodynamically stable. They was begun on aspirin and sequential compression dressing for DVT prophylaxis. The patient was mobilized with therapy beginning the day of surgery and by the first postoperative day independent with the walker. As the pain was adequately controlled and they were fully mobile they were discharged home. Physical Exam Narrative: On the day of discharge the knee incision was clean. They had no drainage. There is minimal swelling in the thigh and knee and the calf. No distal neurovascular deficits were noted Discharge Data Studies Completed and Pending Completed Studies During Hospitalization Category Date Time Status XR knee RT 1-2V 66703 Routine Exams 03/23/22 18:11 Completed Radiology Impressions Knee X-Ray 03/23/22 18:11 IMPRESSION: Satisfactory postoperative changes. Laboratory Results Hgb 11.1 g/dL (11.7-16.6) L 03/24/22 03:50 Vitals Last Vital Signs Temp 97.8 F 03/24/22 06:50 Pulse 61 03/24/22 06:50 Resp 18 03/24/22 07:50 BP 133/63 03/24/22 06:50 Pulse Ox 97 03/24/22 06:50 O2 Del Method 03/24/22 06:50 O2 Flow Rate 6 03/23/22 18:07 Discharge Plan Discharge Patient Disposition: Home Condition: Stable Prescriptions: New gabapentin 300 mg Capsule 300 mg PO BID 7 Days Qty: 14 0RF Continued ascorbic acid (vitamin C) 1,000 mg tablet 1,000 mg PO BID amlodipine 5 mg tablet 5 mg PO DAILY (DME) AFO to the Left See Rx Instructions .Route .MEDSUPPLY Qty: 1 0RF Rx Instructions: As directed J P & O alprazolam 1 mg tablet 1 mg PO BID PRN (Reason: anxiety) 30 Days Qty: 60 2RF hydrocodone-acetaminophen 10-325 mg tablet 1 - 2 tab PO QID PRN (Reason: Pain) fluvoxamine 50 mg tablet 50 mg PO BID lisinopril 20 mg tablet 20 mg PO DAILY Qty: 20 0RF aspirin [Aspir-81] 81 mg Tablet,Delayed Release (Dr/Ec) 81 mg PO DAILY methenamine hippurate 1 gram tablet 1 g PO BID omeprazole 20 mg capsule,delayed release(DR/EC) 20 mg PO DAILY Men's 50 Plus Multivitamin 400-20-370 mcg Tablet 1 tab PO DAILY metoprolol tartrate 25 mg tablet 50 mg PO BID hydrochlorothiazide 12.5 mg tablet 12.5 mg PO DAILY Discharge Diet: Advance as tolerated Discharge Activity: Limit activity as instructed Patient Instructions: Opioid Safety Activity Restrictions/Additional Instructions: Okay to shower Keep Tubigauze sleeve in place for swelling. Okay to remove for hygiene. Apply FirstIce up to 20 min/hr for pain and swelling Take Neurontin twice a day for 7 days. take hydrocodone prescribed by primary physician for breakthrough pain. Exercises per physical therapy. May weight-bear as tolerated on total knee arthroplasty IF HAVE ANY PROBLEMS OR QUESTIONS CALL [facility] AND ASK TO HAVE DR. ASHLI ALFONSO. Discharge Attestations Time Spent in Discharge Care*: other Status at Discharge: Cognitive status at discharge: mildly impaired cognition , Behavioral status at discharge: cooperative , Quality Metrics Clinical Quality Measures [ No reported AMI, CVA or VTE this stay] Coding Level of Care Code Acute Elvisg MOISÉS MESA note
[2022-03-24] MEDS: gabapentin 300 mg Capsule PO (09:37)
[2022-03-24] MEDS: amlodipine 5 mg Tablet PO (09:37)
[2022-03-24] MEDS: lisinopril 20 mg Tablet PO (09:37)
[2022-03-24] MEDS: sennosides-docusate Tablet 2 TAB PO (09:38)
[2022-03-24] MEDS: hydroCHLOROthiazide 25 mg Tablet 12.5 MG PO (09:38)
[2022-03-24] MEDS: aspirin 81 mg EC Tablet PO (09:38)
[2022-03-24] MEDS: metoprolol tartrate 25 mg Tablet 50 MG PO (09:39)
[2022-03-24 09:40] VITALS: BP 154/85; PULSE 75; RESP 18; TEMP 36.4
[2022-03-24 11:55] VITALS: BP 154/85; PULSE 75; RESP 18; TEMP 36.4
== END 2022-03-24 12:00 | disposition home health service (06) ==
LOC: OBGYN 18:20
PROVIDERS: Admitting Provider Orthopaedic Surgery; PCP Internal Medicine; Visit Provider Orthopaedic Surgery
PROC: 8E0Y0CZ Robotic Assisted Procedure of Lower Extremity, Open Approach (ICD-10-PCS; CPT 27447; principal; 2022-03-23 12:10)
DX: M17.11 Unilateral primary osteoarthritis, right knee (principal); J44.9 Chronic obstructive pulmonary disease, unspecified; I48.91 Unspecified atrial fibrillation; K21.9 Gastro-esophageal reflux disease without esophagitis; F41.9 Anxiety disorder, unspecified; F32.A Depression, unspecified; Z86.73 Personal history of transient ischemic attack (TIA), and cerebral infarction without residual deficits; Z86.16 Personal history of COVID-19; I12.9 Hypertensive chronic kidney disease with stage 1 through stage 4 chronic kidney disease, or unspecified chronic kidney disease; N18.30 Chronic kidney disease, stage 3 unspecified; E03.9 Hypothyroidism, unspecified; E66.9 Obesity, unspecified; Z68.31 Body mass index [BMI] 31.0-31.9, adult; Z79.82 Long term (current) use of aspirin
CPT/HCPCS: 27447; 36415; 73560; 85018; 97110; 97116; 97161; 97165; C1776; G0378; J0171; J0690; J1100; J1580; J1885; J2250; J2704; J2795; J7030

== ENCOUNTER → 2022-03-27 10:05 | Outpatient (BNVA) | payer MEDICARE, MEDICAID, SELFPAY | PROVIDERS: PCP Internal Medicine; Visit Provider Nurse Practitioner Family | DX: Z96.651 Presence of right artificial knee joint (principal) | CPT/HCPCS: 99024 ==

== ENCOUNTER 2022-04-09 20:59 | Emergency (ER) | payer MEDICARE, MEDICAID, SELFPAY ==
[2022-04-09 21:04] VITALS: BP 136/82; PULSE 83; RESP 16; TEMP 36.1; O2SAT 97; BMI 29.5
--- NOTE | 2022-04-09 22:13 | ED_ITS ---
HPI - Extremity Problem General: Chief complaint: Extremity Problem,Nontraumatic Stated complaint: Knot and swelling post R knee surgery Time Seen by Provider: 04/09/22 22:12 History of Present Illness: 76-year-old male patient comes in today for complaints of bulging area to the proximal incision line of his knee replacement surgery. Patient denies any fever or chills. Patient appears nontoxic. Patient reports put an ice pack to the area and the swelling seems to have improved prior to exam. Patient denies any complaints or concerns with his knee. Patient has had problems with osteomyelitis in the past which she had to use vancomycin for 1 year. Associated symptoms: Deny chest pain or fever(s) Review of Systems Const: Denies: fever(s) Card: Denies: chest pain Resp: Denies: dyspnea Musc: Reports: extremity swelling PFS ED PFSH: Medical History (Updated 04/09/22 @ 23:33 by MEAGAN PakP) Allergic rhinitis due to allergen Anxiety Basal cell carcinoma, 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) Left, s/p Mohs Chronic kidney disease, stage III (moderate) COVID-19 (10/16/20) Depression GERD (gastroesophageal reflux disease) History of cardiac arrhythmia Has has documented transient atrial fibrillation/flutter with rapid ventricular response with spontaneous conversion to sinus rhythm in 2013 post op, again 2017 during acute illness History of nonmelanoma skin cancer Hyperparathyroidism (04/08/20) Hypertension Meatal stenosis Obesity (BMI 30.0-34.9) Osteoarthritis involving multiple joints on both sides of body Neck, back & rt knee and rt AC joint Postprocedural urethral stricture Recurrent UTI Squamous cell carcinoma of penis TIA (transient ischemic attack) Surgical History (Updated 03/24/22 @ 08:30 by Sean Wolfe MD) History of excision of mass (07/2015) Penile lesion, by Dr Encinas. Procedure done: 1. Dorsal relaxing incision to expose penile mass 2. Wide excision of invasive appearing penile lesion c onsistent grossly with squamous cell carcinoma. Involving the glans penis and incompletely resected. Squamous cell carcinoma History of knee surgery (10/2011) Dr Andres. Right knee arthroscopy, chondroplasty patella, medial femoral condyle, lateral femoral condyle and mild debridement of the posterior horn lateral meniscus. History of laparoscopic cholecystectomy History of repair of right rotator cuff (04/2020) Dr Wolfe, Arthroscopic repair right rotator cuff, limited debridement including biceps tenotomy, labral debridement, subacromial bursectomy, and subacromial decompression History of surgery on upper extremity Left, s/p fracture S/P Mohs surgery for basal cell carcinoma Left arm 10/2021 Back planned 10/2021 Family History Mother , in her 80's Stroke Father , in his 60's Alcoholic Denies family history of Anesthesia complication Bleeding disorder Social History Smoking and tobacco status: never smoked Second hand smoke exposure: No Alcohol intake: never Adopted: No Caregiver/support person: Yes Lives independently: Yes Household members: family and other Details: Son, grandson at house Housing: House Marital status: / Highest education level completed: High School Graduate service: No Current occupational status: retired Sexually active: No Current gender identity: Male Tri/Muslim: Shinto Special tri needs: No Physical Exam Const: COMMON NORMALS: alert HENMT: COMMON NORMALS: normocephalic HEAD & SCALP: normocephalic NOSE: Normal nares present Neck/C-Spine: COMMON NORMALS: full ROM and no meningeal signs Resp: COMMON NORMALS: normal respiratory effort Cardio: COMMON NORMALS: regular rate RATE: regular rate GI: COMMON NORMALS: non-tender Extremity: RIGHT LOWER EXTREMITY: Yes knee joint (Well approximated incision, swelling to the knee joint) Right knee: Yes inspection, Yes palpation and Yes ROM Neuro: SENSORIUM/ORIENTATION: Yes alert MENINGEAL SIGNS: Yes no meningeal signs Skin: COMMON NORMALS: turgor normal GENERAL SKIN EXAM: turgor normal Course Vital Signs: Vital signs: Vital Signs Temperature 97.0 F L 04/09/22 21:04 Pulse Rate 83 04/09/22 21:04 Respiratory Rate 16 04/09/22 21:04 Blood Pressure 136/82 04/09/22 21:04 Pulse Oximetry 97 04/09/22 21:04 Oxygen Delivery Me thod 04/09/22 21:04 MDM - Extremity (Nontraumatic) Medical Decision Making 76-year-old male patient comes in today for complaints of swelling to the incision line of his knee replacement. On exam there is a small raised area at the proximal incision line of the knee replacement. No redness or warmth is noted to the area. Patient does have some swelling to the joint line of the knee suggestive of an effusion. Vital signs are normal. Differential diagnosis includes but not limited to knee joint effusion, seroma, hematoma, wound infection. X-ray noted a small effusion in the joint but otherwise unremarkable. CBC and CMP were significant for some mild elevation in creatinine at 1.4, CRP was 12. Reviewed exam with patient with recommendations for monitoring wound but no need for antibiotics at this time. Recommend follow-up with orthopedic surgeons office in the morning for follow-up appointment next week. Discussed with patient need for return to the ER for fever or uncontrolled pain. Patient stated understanding and agreed to plan. Lab Data 04/09/22 23:05 04/09/22 23: Radiology Impressions Knee X-Ray 04/09/22 22:20 IMPRESSION: 1. Knee arthroplasty changes. 2. Nonspecific soft tissue swelling about the knee with a suspected small joint effusion. Laboratory Results WBC 5.0 10^3/uL (4.0-10.0) 04/09/22 23: RBC 3.56 10^6/uL (4.1-5.3) L 04/09/22 23:05 Hgb 11.0 g/dL (11.7-16.6) L 04/09/22 23: Hct 35.9 % (42.0-52.0) L 04/09/22 23: MCV 100.8 fl (80-94) H 04/09/22 23: MCH 30.9 pg (28.0-34.0) 04/09/22 23: MCHC 30.6 g/dL (30.0-36.0) 04/09/22 23: RDW 13.9 % (12.1-15.1) 04/09/22 23: Plt Count 246 10^3/cmm (130-400) 04/09/22 23: MPV 8.4 fL (7.4-10.4) 04/09/22 23: Neut % (Auto) 66.5 % 04/09/22 23: Lymph % (Auto) 22.4 % 04/09/22 23:05 [place] % (Auto) 7.9 % 04/09/22 23:05 Eos % (Auto) 2.0 % 04/09/22 23:05 Baso % (Auto) 0.8 % 04/09/22 23:05 Neut # (Auto) 3.35 10^3/uL (1.8-7.7) 04/09/22 23:05 Lymph # (Auto) 1.1 10^3/uL (0.8-4.8) 04/09/22 23:05 Dodge # (Auto) 0.4 10^3/uL (0.2-0.9) 04/09/22 23:05 Eos # (Auto) 0.1 10^3/uL (0.0-0.8) 04/09/22 23:05 Baso # (Auto) 0.0 10^3/uL (0.0-0.1) 04/09/22 23:05 Nucleated RBC % (auto) 0 % 04/09/22 23:05 Nucleated RBCs # 0.0 /100WBC 04/09/22 23:05 Sodium 142 mmol/L (136-145) 04/09/22 23:05 Potassium 3.9 mmol/L (3.5-5.1) 04/09/22 23:05 Chloride 106 mmol/L (98-107) 04/09/22 23:05 Carbon Dioxide 26 mmol/L (22-29) 04/09/22 23:05 Anion Gap 13.9 (5-19) 04/09/22 23:05 BUN 21 mg/dL (8-23) 04/09/22 23:05 Creatinine 1.4 mg/dL (0.7-1.2) H 04/09/22 23:05 GFR Calculation Not Reportable 04/09/22 23:05 Glucose 113 mg/dL (65-115) 04/09/22 23:05 Calculated Osmolality 298 mOsm/kg (285-295) H 04/09/22 23:05 Calcium 9.9 mg/dL (8.5-10.5) 04/09/22 23:05 C-Reactive Protein 12.4 mg/L (0.0-4.9) H 04/09/22 23:05 Discharge Plan Discharge Patient Disposition: Home Clinical Impression: Abnormal surgical wound Qualifiers: Encounter type: initial encounter Qualified Code(s): T81.9XXA - Unspecified complication of procedure, initial encounter Condition: Stable Prescriptions: No Action ascorbic acid (vitamin C) 1,000 mg tablet 1,000 mg PO BID amlodipine 5 mg tablet 5 mg PO DAILY (DME) AFO to the Left See Rx Instructions .Route .MEDSUPPLY Qty: 1 0RF Rx Instructions: As directed J P & O alprazolam 1 mg tablet 1 mg PO BID PRN (Reason: anxiety) 30 Days Qty: 60 2RF oxycodone 5 mg tablet 5 mg PO Q4H PRN (Reason: pain) 7 Days Qty: 30 0RF hydrocodone-acetaminophen 10-325 mg tablet 1 - 2 tab PO QID PRN (Reason: Pain) fluvoxamine 50 mg tablet 50 mg PO BID lisinopril 20 mg tablet 20 mg PO DAILY Qty: 20 0RF aspirin 81 mg Tablet,Delayed Release (Dr/Ec) 81 mg PO DAILY methenamine hippurate 1 gram tablet 1 g PO BID omeprazole 20 mg capsule,delayed release(DR/EC) 20 mg PO DAILY Men's 50 Plus Multivitamin 400-20-370 mcg Tablet 1 tab PO DAILY metoprolol tartrate 25 mg tablet 50 mg PO BID hydrochlorothiazide 12.5 mg tablet 12.5 mg PO DAILY Discharge Orders: Discharge ED (Routine); Ordered 04/09/22 Ordered By: Young Lujan Referrals: Mee Natarajan MD [Primary Care Provider] - Discharge Diet: Usual diet Discharge Activity: Increase activity as tolerated Patient Instructions: Pain Management Activity Restrictions/Additional Instructions: Continue with ice to the wound as needed for swelling. Continue routine care otherwise as directed. Follow-up with surgeon's office in the morning or at neck scheduled visit. Return to emergency department for fever greater than 100.4, uncontrolled pain, or new concerns. Coding Level of Care Code ED Machine Operations Supervisor for Cielo Chopra
--- NOTE | 2022-04-09 22:20 | XRR_ITS ---
PROCEDURE INFORMATION: Exam: XR Right Knee Exam date and time: 04/09/2022 10:36 PM Age: 76 years old Clinical indication: Swelling, leg or foot; Prior surgery; Surgery date: <1 month; Additional info: Post surgical swelling redness TECHNIQUE: Imaging protocol: Radiologic exam of the Right knee. Views: 3 views. COMPARISON: CR (LOW EXM, ) 03/23/2022 6:34 PM FINDINGS: Bones/joints: Knee arthroplasty changes. Soft tissues: Nonspecific soft tissue swelling about the knee with a suspected small joint effusion. XR/XR knee RT 3V* [id number] IMPRESSION: 1. Knee arthroplasty changes. 2. Nonspecific soft tissue swelling about the knee with a suspected small joint effusion.
[2022-04-09 23:09] LABS: Basophils % 0.8 %; Eosinophils # 0.1 10^3/uL (0.0-0.8); Hematocrit 35.9 % (42.0-52.0); Lymphocytes # 1.1 10^3/uL (0.8-4.8); Lymphocytes % 22.4 %; Mean Corpuscular HGB Conc 30.6 g/dL (30.0-36.0); Mean Corpuscular Hemoglobin 30.9 pg (28.0-34.0); Mean Corpuscular Volume 100.8 fl (80-94); Mean Platelet Volume 8.4 fL (7.4-10.4); Monocytes # 0.4 10^3/uL (0.2-0.9); Monocytes % 7.9 %; Neutrophils # 3.35 10^3/uL (1.8-7.7); Neutrophils % 66.5 %; Nucleated Red Blood Cells % 0 %; Platelet Count 246 10^3/cmm (130-400); Red Blood Count 3.56 10^6/uL (4.1-5.3); Red Cell Distribution Width 13.9 % (12.1-15.1)
[2022-04-09 23:30] LABS: Anion Gap 13.9 (5-19); Blood Urea Nitrogen 21 mg/dL (8-23); C Reactive Protein 12.4 mg/L (0.0-4.9); Calcium 9.9 mg/dL (8.5-10.5); Carbon Dioxide 26 mmol/L (22-29); Chloride 106 mmol/L (98-107); Glucose 113 mg/dL (65-115); Osmolality Calculated 298 mOsm/kg (285-295); Potassium 3.9 mmol/L (3.5-5.1); Sodium 142 mmol/L (136-145)
== END 2022-04-10 00:04 | disposition home or self-care (01) ==
PROVIDERS: Emergency Provider Nurse Practitioner Family; PCP Internal Medicine
DX: T81.89XA Other complications of procedures, not elsewhere classified, initial encounter (principal); I12.9 Hypertensive chronic kidney disease with stage 1 through stage 4 chronic kidney disease, or unspecified chronic kidney disease; N18.30 Chronic kidney disease, stage 3 unspecified; Z86.73 Personal history of transient ischemic attack (TIA), and cerebral infarction without residual deficits; Y83.8 Other surgical procedures as the cause of abnormal reaction of the patient, or of later complication, without mention of misadventure at the time of the procedure
CPT/HCPCS: 36415; 73562; 80048; 85025; 86140; 99284

== ENCOUNTER 2022-04-15 11:20 | Emergency (ER) | payer MEDICARE, MEDICAID, SELFPAY ==
--- NOTE | 2022-04-15 11:34 | W.ED.EXTPRO ---
HPI - Extremity Problem General: Chief complaint: Extremity Problem,Nontraumatic Stated complaint: Knot on right knee Time Seen by Provider: 04/15/22 11:33 Source: patient Mode of arrival: ambulatory Limitations: no limitations History of Present Illness: Patient is a 76-year-old male who presents to the ED today for evaluation of right knee pain. Patient states he is 3 weeks status post total knee replacement by Dr. Wolfe. He states since the surgery he has continued to have pain and swelling. He was evaluated here in the ED on 04/09 for similar symptoms. Patient states yesterday the knee felt fairly well and he states he had been more active than he had been recently and feels like maybe he over did it. He complains of pain, swelling, and some erythema to the proximal portion of his surgical incision. He feels like pain/swelling is similar to what he has experienced since the surgery and does not feel it is worse in any way. He does have concerns about the redness. MD Complaint: joint swelling and joint pain Onset (ago): day(s) Pain Consistency: constant Location: right and knee Radiation: none Relieving factors: immobilization Exacerbating factors: range of motion, weight bearing, walking and other (reports he wasn't having much pain yesterday with walking/weight bearing) Associated symptoms: Reports no associated symptoms; Deny chest pain or fever(s) Review of Systems Const: Denies: fever(s), chills, body aches, fatigue or malaise Card: Denies: chest pain Resp: Denies: dyspnea Musc: Reports: joint pain (R knee) and joint swelling (R knee); Denies: neck pain, back pain, extremity pain or extremity swelling Skin/Breast: Reports: other (redness R knee incision) Neuro: Denies: numbness in extremities or sensory changes PFS ED PFSH: Medical History Allergic rhinitis due to allergen Anxiety Basal cell carcinoma, 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) Left, s/p Mohs Chronic kidney disease, stage III (moderate) COVID-19 (10/16/20) Depression GERD (gastroesophageal reflux disease) History of cardiac arrhythmia Has has documented transient atrial fibrillation/flutter with rapid ventricular response with spontaneous conversion to sinus rhythm in 2013 post op, again 2017 during acute illness History of nonmelanoma skin cancer Hyperparathyroidism (04/08/20) Hypertension Meatal stenosis Obesity (BMI 30.0-34.9) Osteoarthritis involving multiple joints on both sides of body Neck, back & rt knee and rt AC joint Postprocedural urethral stricture Recurrent UTI Squamous cell carcinoma of penis TIA (transient ischemic attack) Surgical History History of excision of mass (07/2015) Penile lesion, by Dr Encinas. Procedure done: 1. Dorsal relaxing incision to expose penile mass 2. Wide excision of invasive appearing penile lesion consistent grossly with squamous cell carcinoma. Involving the glans penis and incompletely resected. Squamous cell carcinoma History of knee surgery (10/2011) Dr Andres. Right knee arthroscopy, chondroplasty patella, medial femoral condyle, lateral femoral condyle and mild debridement of the posterior horn lateral meniscus. History of laparoscopic cholecystectomy History of repair of right rotator cuff (04/2020) Dr Wolfe, Arthroscopic repair right rotator cuff, limited debridement including biceps tenotomy, labral debridement, subacromial bursectomy, and subacromial decompression History of surgery on upper extremity Left, s/p fracture S/P Mohs surgery for basal cell carcinoma Left arm 10/2021 Back planned 10/2021 Family History Mother , in her 80's Stroke Father , in his 60's Alcoholic Denies family history of Anesthesia complication Bleeding disorder Social History Smoking and tobacco status: never smoked Second hand smoke exposure: No Alcohol intake: never Adopted: No Caregiver/support person: Yes Lives independently: Yes Household members: family and other Details: Son, grandson at house Housing: House Marital status: / Highest education level completed: High School Graduate service: No Current occupational status: retired Sexually active: No Current gender identity: Male Tri/Voodoo: Anglican Special tri needs: No Physical Exam Const: COMMON NORMALS: no acute distress, patient oriented x3, no limitations, healthy appearing, alert and well nourished Resp: COMMON NORMALS: normal respiratory effort and clear to auscultation bilaterally AUSCULTATION: clear to auscultation bilaterally Cardio: COMMON NORMALS: regular rate and regular rhythm RATE: regular rate RHYTHM: regular rhythm Extremity: COMMON NORMALS: capillary refill normal, no clubbing, cyanosis or edema, no calf tenderness and no pedal edema GENERAL: Yes normal exam except as noted RIGHT LOWER EXTREMITY: Yes knee joint OTHER: pt with swelling/warmth to knee joint consistent with normal joint effusion following surgery; surgical incision is well healed; he does have a small amount (about 1 inch) of erythema to the proximal portion of the incision; no drainage; pt does have ROM of the joint-pain is not out of proportion to exam Neuro: COMMON NORMALS: patient oriented x3, moves all extremities, no focal motor deficits and no sensory deficits noted SENSORIUM/ORIENTATION: Yes alert Course Vital Signs: Vital signs: Vital Signs Pulse Rate 91 04/15/22 11:35 Respiratory Rate 20 H 04/15/22 11:35 Blood Pressure 147/98 04/15/22 11:35 Pulse Oximetry 97 04/15/22 11:35 MDM - Extremity (Nontraumatic) Medical Decision Making Patient here for right knee and swelling following a total knee replacement 3 weeks ago. He was seen at our facility on 04/09. He had a normal white count on that visit. Patient's white count is normal today. CRP is slightly elevated with compared to CRP a week ago. On exam I do not have any concern for a septic knee joint. He does have some erythema starting at the proximal portion of his surgical incision that I will place him on oral Keflex for. Strict return ED precautions given. I spoke to case management who will try to move patient's orthopedic follow-up appointment up so they can evaluate him. Lab Data 04/15/22 12:27 Laboratory Results WBC 6.6 10^3/uL (4.0-10.0) 04/15/22 12: RBC 3.73 10^6/uL (4.1-5.3) L 04/15/22 12:27 Hgb 11.4 g/dL (11.7-16.6) L 04/15/22 12:27 Hct 36.6 % (42.0-52.0) L 04/15/22 12:27 MCV 98.1 fl (80-94) H 04/15/22 12: MCH 30.6 pg (28.0-34.0) 04/15/22 12:27 MCHC 31.1 g/dL (30.0-36.0) 04/15/22 12: RDW 13.9 % (12.1-15.1) 04/15/22 12: Plt Count 163 10^3/cmm (130-400) 04/15/22 12: MPV 8.3 fL (7.4-10.4) 04/15/22 12: Neut % (Auto) 79.7 % 04/15/22 12: Lymph % (Auto) 10.5 % 04/15/22 12: [place] % (Auto) 8.2 % 04/15/22 12: Eos % (Auto) 0.8 % 04/15/22 12: Baso % (Auto) 0.3 % 04/15/22 12: Neut # (Auto) 5.23 10^3/uL (1.8-7.7) 04/15/22 12: Lymph # (Auto) 0.7 10^3/uL (0.8-4.8) L 04/15/22 12: [place] # (Auto) 0.5 10^3/uL (0.2-0.9) 04/15/22 12: Eos # (Auto) 0.1 10^3/uL (0.0-0.8) 04/15/22 12: Baso # (Auto) 0.0 10^3/uL (0.0-0.1) 04/15/22 12: Nucleated RBC % (auto) 0 % 04/15/22 12: Nucleated RBCs # 0.0 /100WBC 04/15/22 12: C-Reactive Protein 25.6 mg/L (0.0-4.9) H 04/15/22 12: Discharge Plan Discharge Patient Disposition: Home Clinical Impression: Swelling of right knee joint S/P total knee arthroplasty Qualifiers: Laterality: right Qualified Code(s): Z96.651 - Presence of right artificial knee joint Condition: Stable Prescriptions: New cephalexin 500 mg capsule 500 mg PO Q6H 7 Days Qty: 28 0RF No Action ascorbic acid (vitamin C) 1,000 mg tablet 1,000 mg PO BID amlodipine 5 mg tablet 5 mg PO DAILY (DME) AFO to the Left See Rx Instructions .Route .MEDSUPPLY Qty: 1 0RF Rx Instructions: As directed J P & O alprazolam 1 mg tablet 1 mg PO BID PRN (Reason: anxiety) 30 Days Qty: 60 2RF oxycodone 5 mg tablet 5 mg PO Q4H PRN (Reason: pain) 7 Days Qty: 30 0RF metoprolol tartrate 25 mg tablet See Rx Instructions .ROUTE .COMPLEX Qty: 60 5RF Dose Instruction: TAKE 2 TABLETS BY MOUTH TWICE DAILY FOR BLOOD PRESSURE meds Rx Instructions: TAKE 2 TABLETS BY MOUTH TWICE DAILY FOR BLOOD PRESSURE meds omeprazole 20 mg capsule,delayed release(DR/EC) See Rx Instructions .ROUTE .COMPLEX Qty: 30 5RF Dose Instruction: take 1 capsule BY MOUTH EVERY DAY NEEDED FOR acid reflux Rx Instructions: take 1 capsule BY MOUTH EVERY DAY NEEDED FOR acid reflux meloxicam 15 mg tablet 15 mg PO DAILY Qty: 30 3RF hydrocodone-acetaminophen 10-325 mg tablet 1 - 2 tab PO QID PRN (Reason: Pain) fluvoxamine 50 mg tablet 50 mg PO BID lisinopril 20 mg tablet 20 mg PO DAILY Qty: 20 0RF aspirin 81 mg Tablet,Delayed Release (Dr/Ec) 81 mg PO DAILY methenamine hippurate 1 gram tablet 1 g PO BID Men's 50 Plus Multivitamin 400-20-370 mcg Tablet 1 tab PO DAILY hydrochlorothiazide 12.5 mg tablet 12.5 mg PO DAILY Discharge Orders: Discharge ED (Routine); Ordered 04/15/22 Ordered By: Julienne Harrell Referrals: Mee aNtarajan MD [Primary Care Provider] - Patrick Wallace FNP [Physician Mill Operator Head] - 04/22/22 11:00 am Activity Restrictions/Additional Instructions: We have moved your orthopedic appointment up see you can be more quickly evaluated by them. As we discussed I am putting you on oral antibiotics. You need to ice and elevate the knee. Need to return to the emergency department for worsening pain, significant redness or warmth to the joint, severe pain with any range of motion, fevers, or any other concerns you may have. Coding Level of Care Code ED Windows System Admin for Cielo Chopra
[2022-04-15 11:35] VITALS: BP 147/98; PULSE 91; RESP 20; O2SAT 97
[2022-04-15 12:33] LABS: Basophils % 0.3 %; Eosinophils # 0.1 10^3/uL (0.0-0.8); Eosinophils % 0.8 %; Hematocrit 36.6 % (42.0-52.0); Hemoglobin 11.4 g/dL (11.7-16.6); Lymphocytes # 0.7 10^3/uL (0.8-4.8); Lymphocytes % 10.5 %; Mean Corpuscular HGB Conc 31.1 g/dL (30.0-36.0); Mean Corpuscular Hemoglobin 30.6 pg (28.0-34.0); Mean Corpuscular Volume 98.1 fl (80-94); Mean Platelet Volume 8.3 fL (7.4-10.4); Monocytes # 0.5 10^3/uL (0.2-0.9); Monocytes % 8.2 %; Neutrophils # 5.23 10^3/uL (1.8-7.7); Neutrophils % 79.7 %; Nucleated Red Blood Cells % 0 %; Platelet Count 163 10^3/cmm (130-400); Red Blood Count 3.73 10^6/uL (4.1-5.3); Red Cell Distribution Width 13.9 % (12.1-15.1); White Blood Count 6.6 10^3/uL (4.0-10.0)
[2022-04-15 12:58] LABS: C Reactive Protein 25.6 mg/L (0.0-4.9)
--- NOTE | 2022-04-15 13:19 | DCPLANNER ---
Addendum entered by Paola Evans 05/01/22 07:34: Patient had a follow up appointment at ortho - patient did attend appointment. Original Note: machining manager was asked to speak with ortho to see if patients appointment could be rescheduled sooner than when it is scheduled. machining manager called the ortho clinic, spoke with Alec patients appointment was rescheduled for Wednesday, April 22, 2022 with Patrick. machining manager informed the physician that appointment had been rescheduled.
[2022-04-15 14:01] VITALS: BP 136/74; PULSE 88; RESP 20; O2SAT 96
== END 2022-04-15 14:17 | disposition home or self-care (01) ==
PROVIDERS: Emergency Provider Physician Assistant; PCP Internal Medicine
DX: M25.461 Effusion, right knee (principal); Z96.651 Presence of right artificial knee joint
CPT/HCPCS: 36415; 85025; 86140; 99283

== ENCOUNTER → 2022-04-20 08:20 | Outpatient (BNVA) | payer MEDICARE, MEDICAID, SELFPAY | PROVIDERS: PCP Internal Medicine; Visit Provider Podiatrist Foot & Ankle Surgery | DX: M25.372 Other instability, left ankle (principal); M19.172 Post-traumatic osteoarthritis, left ankle and foot | CPT/HCPCS: 20605 ==

== ENCOUNTER → 2022-04-21 10:03 | Outpatient (BNVA) | payer MEDICARE, MEDICAID, SELFPAY | PROVIDERS: PCP Internal Medicine; Visit Provider Orthopaedic Surgery | DX: Z96.651 Presence of right artificial knee joint (principal) | CPT/HCPCS: 73560; 73565; 99024 ==

== ENCOUNTER 2022-04-29 06:00 | Outpatient (RCR) | payer MEDICARE, MEDICAID, SELFPAY | END 2022-05-29 23:59 | disposition home or self-care (01) | LOC: SPT 06:00 | PROVIDERS: PCP Internal Medicine; Visit Provider Orthopaedic Surgery | DX: Z47.1 Aftercare following joint replacement surgery (principal); Z96.651 Presence of right artificial knee joint | CPT/HCPCS: 97110; 97150; 97162; 97530 ==

== ENCOUNTER → 2022-05-12 13:07 | Outpatient (BNVA) | payer MEDICARE, MEDICAID, SELFPAY | PROVIDERS: PCP Internal Medicine; Visit Provider Podiatrist Foot & Ankle Surgery | DX: M19.172 Post-traumatic osteoarthritis, left ankle and foot (principal); M25.372 Other instability, left ankle | CPT/HCPCS: 99213 ==

== ENCOUNTER 2022-05-14 10:06 | Emergency (ER) | payer MEDICARE, MEDICAID, SELFPAY ==
[2022-05-14] VITALS (9 sets, daily range): BP systolic 109–169; BP diastolic 64–93; PULSE 46–64; RESP 14–23; TEMP 36.6; O2SAT 95–99; BMI 29.5
--- NOTE | 2022-05-14 10:15 | ED_ITS ---
HPI - Dizziness General: Chief Complaint: Dizziness Stated Complaint: HYPERTENSION Time Seen by Provider: 05/14/22 10:10 Source: patient Mode of arrival: ambulatory History of Present Illness: HPI Narrative: 68-year-old male presents emergency room he had an elevated blood pressure at the doctor's office felt weak and lightheaded had some vertiginous-like symptoms. It began while he was at physical therapy was deferred to his doctor's office there they became concerned and directed him to the emergency room. He was given clonidine at the doctor's office he denies any chest pain or shortness of breath. MD elicited complaint: dizziness Onset (ago): minute(s) Severity: moderate Description: room spinning Exacerbating factors: nothing Relieving factors: nothing Associated symptoms: Reports nausea; Denies abnormal vaginal bleeding, change in hearing, chest pain, chills, cough, diaphoresis, ear discharge, ear pressure, fevers/chills, headache(s), malaise, nasal congestion, palpitations, rash, short of breath, syncope, tinnitus, vomiting or weakness Associated neuro symptoms: Deny confusion, difficulty speaking, dysphagia, diplopia, extremity weakness, facial numbness, facial weakness, gait changes, numbness in extremities or visual changes Review of Systems Const: Denies: fever(s), chills, malaise or diaphoresis ENMT: Denies: ear discharge, change in hearing, tinnitus or nasal congestion Card: Denies: chest pain, palpitations or syncope Resp: Denies: dyspnea, productive cough or non-productive cough GI: Reports: nausea; Denies: abdominal pain, vomiting or dysphagia : Denies: flank pain, dysuria, urinary frequency or urinary urgency Skin/Breast: Denies: rash or pruritus Neuro: Denies: headache(s), numbness in extremities or confusion PFS ED PFSH: Medical History Allergic rhinitis due to allergen Anxiety Basal cell carcinoma, 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) Left, s/p Mohs Chronic kidney disease, stage III (moderate) COVID-19 (10/16/20) Depression GERD (gastroesophageal reflux disease) History of cardiac arrhythmia Has has documented transient atrial fibrillation/flutter with rapid ventricular response with spontaneous conversion to sinus rhythm in 2013 post op, again 2017 during acute illness History of nonmelanoma skin cancer Hyperparathyroidism (04/08/20) Hypertension Meatal stenosis Obesity (BMI 30.0-34.9) Osteoarthritis involving multiple joints on both sides of body Neck, back & rt knee and rt AC joint Postprocedural urethral stricture Recurrent UTI Squamous cell carcinoma of penis TIA (transient ischemic attack) Surgical History History of excision of mass (07/2015) Penile lesion, by Dr Encinas. Procedure done: 1. Dorsal relaxing incision to expose penile mass 2. Wide excision of invasive appearing penile lesion consistent grossly with squamous cell carcinoma. Involving the glans penis and incompletely resected. Squamous cell carcinoma History of knee surgery (10/2011) Dr Andres. Right knee arthroscopy, chondroplasty patella, medial femoral condyle, lateral femoral condyle and mild debridement of the posterior horn lateral meniscus. History of laparoscopic cholecystectomy History of repair of right rotator cuff (04/2020) Dr Wolfe, Arthroscopic repair right rotator cuff, limited debridement including biceps tenotomy, labral debridement, subacromial bursectomy, and subacromial decompression History of surgery on upper extremity Left, s/p fracture S/P Mohs surgery for basal cell carcinoma Left arm 10/2021 Back planned 10/2021 Family History Mother , in her 80's Stroke Father , in his 60's Alcoholic Denies family history of Anesthesia complication Bleeding disorder Social History Smoking and tobacco status: never smoked Second hand smoke exposure: No Alcohol intake: never Adopted: No Caregiver/support person: Yes Lives independently: Yes Household members: family and other Details: Son, grandson at house Housing: House Marital status: / Highest education level completed: High School Graduate service: No Current occupational status: retired Sexually active: No Current gender identity: Male Tri/Samaritan: Jain Special tri needs: No Physical Exam Const: GENERAL APPEARANCE: cooperative and comfortable ORIENTATION/CONSCIOUSNESS: Yes awake, Yes oriented to person, Yes oriented to place and Yes oriented to time HENMT: COMMON NORMALS: normocephalic, atraumatic and hearing grossly normal bilaterally HEAD & SCALP: normocephalic and atraumatic Resp: COMMON NORMALS: normal respiratory effort, No retractions, No use of accessory muscles and clear to auscultation bilaterally AUSCULTATION: clear to auscultation bilaterally Cardio: COMMON NORMALS: regular rate, regular rhythm and No murmurs present (Cardio) RATE: regular rate RHYTHM: regular rhythm GI: COMMON NORMALS: Soft to palpation and No hepatosplenomegaly present AUSCULTATION: Yes normoactive bowel sounds PALPATION: Yes Soft to palpation, No Tenderness to palpation present (GI), No Guarding due to palpation present (GI) and Yes No hepatosplenomegaly present Extremity: COMMON NORMALS: normal to inspection, capillary refill normal, no clubbing, cyanosis or edema, no calf tenderness and no pedal edema Neuro: SENSORIUM/ORIENTATION: Yes oriented to person, Yes oriented to place and Yes oriented to time OTHER: No focal neurologic deficits are noted. No signs of acute CVA. Bedside abbreviated NIH exam was unremarkable Skin: COMMON NORMALS: no rashes or lesions noted GENERAL SKIN EXAM: no rashes or lesions noted Course Vital Signs: Vital signs: Vital Signs Temperature 97.8 F 05/14/22 10:11 Pulse Rate 50 L 05/14/22 12:00 Respiratory Rate 21 H 05/14/22 12:00 Blood Pressure 109/65 05/14/22 12:15 Pulse Oximetry 95 05/14/22 12:00 Oxygen Delivery Me thod 05/14/22 10:11 MDM - Dizziness Medical Decision Making Patient remained completely asymptomatic normal vitals throughout his entire ER stay. He is awake and alert he had vertiginous symptoms but those are resolved. Labs imaging and EKG reviewed no significant findings noted. We will discharge patient home meclizine use as needed. Suspect is labyrinthitis symptoms were aggravated by exertion. Medical Records I reviewed the patient's medical records. Lab Data I reviewed the patient's lab results. 05/14/22 10:38 05/14/22 10:38 Radiology Impressions Chest X-Ray 05/14/22 10:15 IMPRESSION: Stable chest with no acute abnormality. Head CT 05/14/22 10:15 IMPRESSION: 1. No acute intracranial hemorrhage or edema. 2. Mild atrophy cerebrum and cerebellum and small vessel ischemic disease. No acute infarct. Laboratory Results WBC 4.5 10^3/uL (4.0-10.0) 05/14/22 10:38 RBC 4.03 10^6/uL (4.1-5.3) L 05/14/22 10:38 Hgb 12.1 g/dL (11.7-16.6) 05/14/22 10:38 Hct 40.0 % (42.0-52.0) L 05/14/22 10:38 MCV 99.3 fl (80-94) H 05/14/22 10:38 MCH 30.0 pg (28.0-34.0) 05/14/22 10:38 MCHC 30.3 g/dL (30.0-36.0) 05/14/22 10:38 RDW 14.3 % (12.1-15.1) 05/14/22 10:38 Plt Count 142 10^3/cmm (130-400) 05/14/22 10:38 MPV 8.3 fL (7.4-10.4) 05/14/22 10:38 Neut % (Auto) 71.3 % 05/14/22 10:38 Lymph % (Auto) 20.9 % 05/14/22 10:38 Whiteside % (Auto) 5.8 % 05/14/22 10:38 Eos % (Auto) 1.6 % 05/14/22 10:38 Baso % (Auto) 0.2 % 05/14/22 10:38 Neut # (Auto) 3.18 10^3/uL (1.8-7.7) 05/14/22 10:38 Lymph # (Auto) 0.9 10^3/uL (0.8-4.8) 05/14/22 10:38 Whiteside # (Auto) 0.3 10^3/uL (0.2-0.9) 05/14/22 10:38 Eos # (Auto) 0.1 10^3/uL (0.0-0.8) 05/14/22 10:38 Baso # (Auto) 0.0 10^3/uL (0.0-0.1) 05/14/22 10:38 Nucleated RBC % (auto) 0 % 05/14/22 10:38 Nucleated RBCs # 0.0 /100WBC 05/14/22 10:38 Sodium 142 mmol/L (136-145) 05/14/22 10:38 Potassium 4.2 mmol/L (3.5-5.1) 05/14/22 10:38 Chloride 108 mmol/L (98-107) H 05/14/22 10:38 Carbon Dioxide 24 mmol/L (22-29) 05/14/22 10:38 Anion Gap 14.2 (5-19) 05/14/22 10:38 BUN 16 mg/dL (8-23) 05/14/22 10:38 Creatinine 1.2 mg/dL (0.7-1.2) 05/14/22 10:38 GFR Calculation Not Reportable 05/14/22 10:38 Glucose 94 mg/dL (65-115) 05/14/22 10:38 Calculated Osmolality 295 mOsm/kg (285-295) 05/14/22 10:38 Calcium 8.9 mg/dL (8.5-10.5) 05/14/22 10:38 Total Bilirubin 0.4 mg/dL (0.15-1.2) 05/14/22 10:38 AST 18 U/L (0-40) 05/14/22 10:38 ALT 10 U/L (0-41) 05/14/22 10:38 Alkaline Phosphatase 128 U/L (40-130) 05/14/22 10:38 Total Protein 6.0 g/dL (6.6-8.7) L 05/14/22 10:38 Albumin 3.3 g/dL (3.5-5.2) L 05/14/22 10:38 Globulin 2.7 g/dL (1.3-4.6) 05/14/22 10:38 Discharge Plan Discharge Patient Disposition: Home Clinical Impression: Labyrinthitis Condition: Stable Prescriptions: New meclizine 25 mg tablet 25 mg PO QID PRN (Reason: dizziness) Qty: 30 0RF No Action ascorbic acid (vitamin C) 1,000 mg tablet 1,000 mg PO BID amlodipine 5 mg tablet 5 mg PO DAILY (DME) AFO to the Left See Rx Instructions .Route .MEDSUPPLY Qty: 1 0RF Rx Instructions: As directed [facility] alprazolam 1 mg tablet 1 mg PO BID PRN (Reason: anxiety) 30 Days Qty: 60 2RF hydrochlorothiazide 12.5 mg tablet 12.5 mg PO DAILY Qty: 30 3RF hydrocodone-acetaminophen 10-325 mg tablet 1 - 2 tab PO QID PRN (Reason: Pain) fluvoxamine 50 mg tablet 50 mg PO BID lisinopril 20 mg tablet 20 mg PO DAILY Qty: 20 0RF aspirin 81 mg Tablet,Delayed Release (Dr/Ec) 81 mg PO DAILY methenamine hippurate 1 gram tablet 1 g PO BID Men's 50 Plus Multivitamin 400-20-370 mcg Tablet 1 tab PO DAILY omeprazole 20 mg capsule,delayed release(DR/EC) 20 mg PO DAILY metoprolol tartrate 25 mg tablet 50 mg PO BID Discharge Orders: Discharge ED (Routine); Ordered 05/14/22 Ordered By: Elvis Becker Referrals: Mee Natarajan MD [Primary Care Provider] - Discharge Diet: Usual diet Discharge Activity: Increase activity as tolerated Patient Instructions: Opioid Safety, Pain Management Activity Restrictions/Additional Instructions: You are seen today for an episode of dizziness your exam EKG and CT of head were all unremarkable. Suspect this is labyrinthitis some of it may have been brought about by your exertion during PT. Use meclizine as needed. Coding Level of Care Code ED Multimedia Production Assistant for Cielo Chopra
--- NOTE | 2022-05-14 10:15 | CT_ITS ---
WS: [id number] CT HEAD NONCONTRAST HISTORY: dizziness TECHNIQUE: Contiguous axial imaging performed through the brain in 2.5 mm imaging. Bone and soft tiss ue windows. Sagittal and coronal reformats reviewed. All CT scans at [facility] use at least one of these dose optimization techniques: automated exposure control; mA and/or kV adjustment per pa tient size (includes targeted exams where dose is matched to clinical indication); or iterative recon struction. DLP: 1053.22 mGy.cm COMPARISON: 05/19/2021 No acute intracranial hemorrhage, midline shift or mass effect. Mild atrophy and small vessel ischemic disease. Mild cerebellar atrophy. Small lacunar infarct RIGHT basal ganglia. Ventricles: Normal size with no hydrocephalus. No inferior displacement of cerebellar tonsils. Paranasal sinuses: As visualized are clear. Mastoid air cells: Well pneumatized. Calvarium and scalp: Skull is intact with no soft tissue edema or swelling. CT/CT head wo con* [id number] IMPRESSION: 1. No acute intracranial hemorrhage or edema. 2. Mild atrophy cerebrum and cerebellum and small vessel ischemic disease. No acute infarct.
--- NOTE | 2022-05-14 10:15 | XR_ITS ---
WS: [id number] XR chest 1V portable [id number] REASON FOR EXAM: dyspnea/cough FINDINGS: The chest is unchanged compared to 03/04/2022. Significant tortuosity and ectasia of the thoracic aorta. Heart size within normal limits. Calcified granulomatous disease in both hemithoraces. No active pulmonary parenchymal or pleural disease is identified. Osteoarthropathy in both glenohumeral joints. Mild degenerative spondylosis in the thoracic spine. XR/XR chest 1V portable [id number] IMPRESSION: Stable chest with no acute abnormality.
--- NOTE | 2022-05-14 10:30 | ECG_ITS ---
[facility] Test Date: 2022-05-14 Pat Name: Mike Silva Department: Room: Gender: Male Machine Hand: : [id number] Requested By: Elvis Pickering Order Number: [id number] Reading MD: JO ANN POWERS Measurements Intervals [place] Rate: 54 P: 22 SC: 141 QRS: -1 QRSD: 85 T: 20 QT: 388 QTc: 368 Interpretive Statements SINUS BRADYCARDIA WITH OCCASIONAL SUPRAVENTRICULAR PREMATURE COMPLEXES MINIMAL VOLTAGE CRITERIA FOR LVH, CONSIDER NORMAL VARIANT [MEETS CRITERIA IN ONE OF: R(aVL), S(V1), R(V5), R(V5/V6)+S(V1)] Compared to ECG 03/04/2022 09:17:26 Sinus rhythm no longer present Electronically Signed On 05-16-2022 23:40:15 CDT by JO ANN POWERS [email or web address]
--- NOTE | 2022-05-14 10:49 | PC.NURSE ---
PT PLACED ON CONTINUOUS SPO2, NIBP, AND CM.
[2022-05-14 10:52] LABS: Basophils % 0.2 %; Eosinophils # 0.1 10^3/uL (0.0-0.8); Eosinophils % 1.6 %; Hemoglobin 12.1 g/dL (11.7-16.6); Lymphocytes # 0.9 10^3/uL (0.8-4.8); Lymphocytes % 20.9 %; Mean Corpuscular HGB Conc 30.3 g/dL (30.0-36.0); Mean Corpuscular Volume 99.3 fl (80-94); Mean Platelet Volume 8.3 fL (7.4-10.4); Monocytes # 0.3 10^3/uL (0.2-0.9); Monocytes % 5.8 %; Neutrophils # 3.18 10^3/uL (1.8-7.7); Neutrophils % 71.3 %; Nucleated Red Blood Cells % 0 %; Platelet Count 142 10^3/cmm (130-400); Red Blood Count 4.03 10^6/uL (4.1-5.3); Red Cell Distribution Width 14.3 % (12.1-15.1); White Blood Count 4.5 10^3/uL (4.0-10.0)
[2022-05-14 11:10] LABS: Alanine Aminotransferase 10 U/L (0-41); Albumin Level 3.3 g/dL (3.5-5.2); Alkaline Phosphatase 128 U/L (40-130); Anion Gap 14.2 (5-19); Aspartate Amino Transferase 18 U/L (0-40); Blood Urea Nitrogen 16 mg/dL (8-23); Calcium 8.9 mg/dL (8.5-10.5); Carbon Dioxide 24 mmol/L (22-29); Chloride 108 mmol/L (98-107); Globulin 2.7 g/dL (1.3-4.6); Glucose 94 mg/dL (65-115); Osmolality Calculated 295 mOsm/kg (285-295); Potassium 4.2 mmol/L (3.5-5.1); Sodium 142 mmol/L (136-145); Total Bilirubin 0.4 mg/dL (0.15-1.2)
== END 2022-05-14 12:19 | disposition home or self-care (01) ==
PROVIDERS: Emergency Provider Family Medicine; PCP Internal Medicine
DX: H83.09 Labyrinthitis, unspecified ear (principal); Z79.82 Long term (current) use of aspirin; I12.9 Hypertensive chronic kidney disease with stage 1 through stage 4 chronic kidney disease, or unspecified chronic kidney disease; N18.30 Chronic kidney disease, stage 3 unspecified; Z86.73 Personal history of transient ischemic attack (TIA), and cerebral infarction without residual deficits
CPT/HCPCS: 70450; 71045; 80053; 85025; 93005; 99285

== ENCOUNTER → 2022-05-19 09:33 | Outpatient (BNVA) | payer MEDICARE, MEDICAID, SELFPAY | PROVIDERS: PCP Internal Medicine; Visit Provider Orthopaedic Surgery | DX: Z96.651 Presence of right artificial knee joint (principal) | CPT/HCPCS: 99024 ==

== ENCOUNTER 2022-05-30 06:00 | Outpatient (RCR) | payer MEDICARE, MEDICAID, SELFPAY | END 2022-06-28 23:59 | disposition home or self-care (01) | LOC: SPT 06:00 | PROVIDERS: PCP Family Medicine Adult Medicine; Visit Provider Orthopaedic Surgery | DX: Z47.1 Aftercare following joint replacement surgery (principal); Z96.651 Presence of right artificial knee joint | CPT/HCPCS: 97110; 97150 ==

== ENCOUNTER → 2022-06-17 14:27 | Outpatient (BNVA) | payer MEDICARE, MEDICAID, SELFPAY | PROVIDERS: PCP Family Medicine Adult Medicine; Visit Provider Dermatology | DX: L57.8 Other skin changes due to chronic exposure to nonionizing radiation (principal); S61.411A Laceration without foreign body of right hand, initial encounter; W45.8XXA Other foreign body or object entering through skin, initial encounter; D23.122 Other benign neoplasm of skin of left lower eyelid, including canthus; L57.0 Actinic keratosis; Z85.828 Personal history of other malignant neoplasm of skin | CPT/HCPCS: 17000; 99203 ==

== ENCOUNTER → 2022-06-23 08:46 | Outpatient (BNVA) | payer MEDICARE, MEDICAID, SELFPAY | PROVIDERS: PCP Family Medicine Adult Medicine; Visit Provider Orthopaedic Surgery | DX: Z47.89 Encounter for other orthopedic aftercare (principal); Z96.651 Presence of right artificial knee joint | CPT/HCPCS: 99024 ==

== ENCOUNTER 2022-07-22 13:00 | Outpatient (CLI) | payer MEDICARE, MEDICAID, SELFPAY ==
--- NOTE | 2022-07-22 14:00 | XR_ITS ---
WS: [id number] SCREENING DEXA SCAN Identiv CLINICAL INFORMATION: Stated osteoporosis COMPARISON: None. FINDINGS: The L1-L4 bone mineral density measures 1.488 g/cm2. This corresponds to a T score score of 2.2 and Z score of 2.5. Left femoral neck bone mineral density measures 0.895 g/cm2. This corresponds to a T score of -1.4 an d Z score of -0.6. Right femoral neck bone mineral density measures 0.860 g/cm2. This corresponds to a T score -1.7of an d Z score of -0.9. Mean femoral neck bone mineral density measures 0.877 g/cm2. This corresponds to a T score of -1.6 an d Z score of -0.7. XR/XR DEXA axial skeleton* [id number] IMPRESSION: Normal bone mineralization lumbar spine. Osteopenia femoral necks. Patient's FRAX calculated 10 year probability for major osteoporotic fracture i s 9.8 % and osteoporotic hip fracture is 4.0%.
== END 2022-07-22 13:01 | disposition home or self-care (01) ==
LOC: RAD 13:02
PROVIDERS: PCP Family Medicine Adult Medicine; Visit Provider Family Medicine Adult Medicine
DX: M85.88 Other specified disorders of bone density and structure, other site (principal); Z87.39 Personal history of other diseases of the musculoskeletal system and connective tissue
CPT/HCPCS: 77080

== ENCOUNTER → 2022-09-07 15:25 | Outpatient (BNVA) | payer MEDICARE, MEDICAID, SELFPAY | PROVIDERS: PCP Family Medicine Adult Medicine; Visit Provider Specialist | DX: Z96.651 Presence of right artificial knee joint (principal) | CPT/HCPCS: 73560; 73565; 99203 ==

== ENCOUNTER 2022-09-15 10:53 | Outpatient (CLI) | payer MEDICARE, MEDICAID, SELFPAY ==
--- NOTE | 2022-09-15 11:00 | US_ITS ---
WS: [id number] Exam: US renal BI* [id number] Date/Time of Exam: 09/15/2022 11:15 AM Reason For Exam: CHRONIC KIDNEY [id number] There are 2 small cysts in the right kidney. The largest measures 2.15 cm at greatest diameter, the s maller cyst measures approximately 1.37 cm at greatest diameter. The right kidney measures 10.45 x 5. 2 x 6.26 cm. Right renal cortex measures slightly over a centimeter greatest thickness. Evaluation of the left kidney shows no evidence of solid mass or obstruction. No cysts were noted. Th ere are several shadowing stones noted in the left kidney. The largest is at the lower pole measures almost a centimeter greatest diameter. The stones are nonobstructive. The left kidney measures 8.41 x 6 x 6.2 cm. Left renal cortex measures 1.47 cm at greatest thickness. No obvious intrinsic or extrin sic bladder defects were noted. US/US renal BI* [id number] IMPRESSION: 1. No sign of renal obstruction or solid renal mass. 2. Nonobstructing calculi in the left kidney. 3. 2 small cysts noted in the right kidney.
== END 2022-09-15 10:54 | disposition home or self-care (01) ==
PROVIDERS: PCP Family Medicine Adult Medicine; Visit Provider Internal Medicine
DX: N18.32 Chronic kidney disease, stage 3b (principal); N28.1 Cyst of kidney, acquired
CPT/HCPCS: 76770

== ENCOUNTER → 2022-09-25 14:13 | Outpatient (BNVA) | payer MEDICARE, MEDICAID, SELFPAY | PROVIDERS: PCP Family Medicine Adult Medicine; Visit Provider Family Medicine Adult Medicine | DX: I12.9 Hypertensive chronic kidney disease with stage 1 through stage 4 chronic kidney disease, or unspecified chronic kidney disease (principal); I10 Essential (primary) hypertension; N18.30 Chronic kidney disease, stage 3 unspecified; I95.2 Hypotension due to drugs | CPT/HCPCS: 80053 ==

== ENCOUNTER → 2022-10-19 09:18 | Outpatient (BNVA) | payer MEDICARE, MEDICAID, SELFPAY | PROVIDERS: PCP Family Medicine Adult Medicine; Visit Provider Podiatrist Foot & Ankle Surgery | DX: M25.372 Other instability, left ankle; M19.172 Post-traumatic osteoarthritis, left ankle and foot | CPT/HCPCS: 99213 ==

== ENCOUNTER 2022-10-20 15:04 | Outpatient (CLI) | payer MEDICARE, MEDICAID, SELFPAY | END 2022-10-20 15:05 | disposition home or self-care (01) | PROVIDERS: PCP Family Medicine Adult Medicine; Visit Provider Nurse Practitioner Family | DX: R19.7 Diarrhea, unspecified (principal) | CPT/HCPCS: 82274; 83630; 87506 ==

== ENCOUNTER 2022-11-11 18:55 | Emergency (ER) | payer MEDICARE, MEDICAID, SELFPAY ==
[2022-11-11 19:04] VITALS: BP 137/66; PULSE 56; RESP 18; TEMP 36.6; O2SAT 97; BMI 30.7
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
== END 2022-11-11 20:05 | disposition home or self-care (01) ==
PROVIDERS: Emergency Provider Nurse Practitioner Family; PCP Family Medicine Adult Medicine
DX: S39.012A Strain of muscle, fascia and tendon of lower back, initial encounter (principal); F41.9 Anxiety disorder, unspecified; Z79.82 Long term (current) use of aspirin; I12.9 Hypertensive chronic kidney disease with stage 1 through stage 4 chronic kidney disease, or unspecified chronic kidney disease; N18.30 Chronic kidney disease, stage 3 unspecified; Z86.73 Personal history of transient ischemic attack (TIA), and cerebral infarction without residual deficits; V89.2XXA Person injured in unspecified motor-vehicle accident, traffic, initial encounter
CPT/HCPCS: 99282

== ENCOUNTER → 2022-11-12 13:47 | Outpatient (BNVA) | payer MEDICARE, MEDICAID, SELFPAY | PROVIDERS: PCP Family Medicine Adult Medicine; Visit Provider Podiatrist Foot & Ankle Surgery | DX: M25.372 Other instability, left ankle; M19.172 Post-traumatic osteoarthritis, left ankle and foot | CPT/HCPCS: 73610; 99213 ==

== ENCOUNTER 2022-11-23 10:22 | Outpatient (CLI) | payer MEDICARE, MEDICAID, SELFPAY ==
--- NOTE | 2022-11-23 11:40 | XRR_ITS ---
PROCEDURE INFORMATION: Exam: XR Left Hip Exam date and time: 11/23/2022 11:48 AM Age: 77 years old Clinical indication: Hip pain; Left hip; Patient HX: Pain shooting down left leg, 1 week of pain; Additional info: Pain in left hip TECHNIQUE: Imaging protocol: Radiologic exam of the left hip. Views: 2 or 3 views hip with pelvis when performed. COMPARISON: CT kidney stone [id number] 03/04/2022 9:47 AM FINDINGS: Bones/joints: Unremarkable. No acute fracture. Soft tissues: Unremarkable. XR/XR hip LT 2-3V wo/w pel* [id number] IMPRESSION: No acute findings.
== END 2022-11-23 10:23 | disposition home or self-care (01) ==
LOC: RAD 10:27
PROVIDERS: PCP Family Medicine Adult Medicine; Visit Provider Nurse Practitioner Family
DX: M25.552 Pain in left hip (principal)
CPT/HCPCS: 73502

== ENCOUNTER → 2022-11-24 11:10 | Outpatient (BNVA) | payer MEDICARE, MEDICAID, SELFPAY | PROVIDERS: PCP Family Medicine Adult Medicine; Visit Provider Nurse Practitioner Family | DX: L02.821 Furuncle of head [any part, except face] (principal); L81.4 Other melanin hyperpigmentation; L57.8 Other skin changes due to chronic exposure to nonionizing radiation; Z08 Encounter for follow-up examination after completed treatment for malignant neoplasm; Z85.828 Personal history of other malignant neoplasm of skin; L57.0 Actinic keratosis | CPT/HCPCS: 17004; 99214 ==

== ENCOUNTER 2022-12-17 13:09 | Emergency (ER) | payer MEDICARE, MEDICAID, SELFPAY ==
[2022-12-17 13:22] VITALS: BP 135/77; PULSE 53; RESP 16; TEMP 36.6; O2SAT 97; BMI 29.5
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
--- NOTE | 2022-12-17 15:22 | W.ED.EXTPRO ---
HPI - Extremity Problem General: Chief complaint: Extremity Injury, Lower Stated complaint: Left side hip pain Time Seen by Provider: 12/17/22 15:04 History of Present Illness: 77-year-old male presents emerged part with complaints of left hip pain. He states he injured it approximately 1 to 2 weeks ago and was seen here in the emergency department and was provided radiograph examination which demonstrated negative. He states that for the previous 5 days his left hip has been very achy and painful. He states the pain is a 7 out of 10 and worse when he ambulates. Review of Systems General: Reports: 10 or more systems reviewed and unremarkable except in HPI and below Musc: Reports: extremity pain, joint pain and joint stiffness ON LICENSE OF [facility] ED PFS: Medical History (Updated 12/17/22 @ 15:26 by Stevie Harmon MD) Allergic rhinitis due to allergen Anxiety Basal cell carcinoma, 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) Left, s/p Mohs Bradycardia with 41-50 beats per minute Chronic kidney disease, stage III (moderate) COVID-19 (10/16/20) Depression GERD (gastroesophageal reflux disease) History of cardiac arrhythmia Has has documented transient atrial fibrillation/flutter with rapid ventricular response with spontaneous conversion to sinus rhythm in 2013 post op, again 2017 during acute illness History of nonmelanoma skin cancer Hyperparathyroidism (04/08/20) Hypertension Meatal stenosis Obesity (BMI 30.0-34.9) Osteoarthritis involving multiple joints on both sides of body Neck, back & rt knee and rt AC joint Personal history of osteoporosis Recurrent UTI 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 Procedure done: 1. Dorsal relaxing incision to expose penile mass 2. Wide excision of invasive appearing penile lesion consistent grossly with squamous cell carcinoma. Involving the glans penis and incompletely resected. Squamous cell carcinoma History of knee surgery (10/2011) Dr Andres. Right knee arthroscopy, chondroplasty patella, medial femoral condyle, lateral femoral condyle and mild debridement of the posterior horn lateral meniscus. History of laparoscopic cholecystectomy History of repair of right rotator cuff (04/2020) Dr Wolfe, Arthroscopic repair right rotator cuff, limited debridement including biceps tenotomy, labral debridement, subacromial bursectomy, and subacromial decompression History of surgery on upper extremity Left, s/p fracture S/P Mohs surgery for basal cell carcinoma Left arm 10/2021 Back planned 10/2021 Status post right knee replacement 03/23/2022 Dr. Wolfe Rt TKR Family History Mother , in her 80's Stroke Father , in his 60's Alcoholic Denies family history of Anesthesia complication Bleeding disorder Social History Smoking and tobacco/nicotine status: never used tobacco/nicotine Second hand smoke exposure: No Alcohol intake: never Substance/Drug Use: never Adopted: No Caregiver/support person: Yes Lives independently: Yes Household members: family and other Details: Son, grandson at house Housing: House Marital status: / Highest education level completed: High School Graduate service: No Current occupational status: retired Sexually active: No Do you think of yourself as: Straight/Heterosexual Current gender identity: Male Tri/Oriental Orthodox: Restorationism Special tir needs: No Physical Exam Const: COMMON NORMALS: no acute distress, patient oriented x3 and alert HENMT: COMMON NORMALS: normocephalic and moist oral mucous membranes HEAD & SCALP: normocephalic Neck/C-Spine: COMMON NORMALS: full ROM and supple Resp: COMMON NORMALS: normal respiratory effort and clear to auscultation bilaterally AUSCULTATION: clear to auscultation bilaterally Cardio: COMMON NORMALS: regular rate, regular rhythm, S1 normal heart sound present, S2 normal heart sound present and Peripheral pulses 2+ throughout RATE: regular rate RHYTHM: regular rhythm HEART SOUNDS: S1 normal heart sound present and S2 normal heart sound present PERIPHERAL PULSES: Peripheral pulses 2+ throughout GI: COMMON NORMALS: Normal to inspection, nondistended, normoactive bowel sounds present, Soft to palpation and non-tender PALPATION: Yes Soft to palpation Back/Pelvis: COMMON NORMALS: thoracic and lumbar spine normal to inspection, no thoracic nor lumbar tenderness and thoraco-lumbar ROM normal Extremity: LEFT LOWER EXTREMITY: Yes hip joint Left hip: Yes palpation (pain) Neuro: COMMON NORMALS: patient oriented x3 SENSORIUM/ORIENTATION: Yes alert Psych: COMMON NORMALS: mental status grossly normal and Normal thought process present THOUGHT PROCESS: Normal thought process present Skin: COMMON NORMALS: no rashes or lesions noted GENERAL SKIN EXAM: no rashes or lesions noted Course Vital Signs: Vital signs: Vital Signs Temperature 97.9 F 12/17/22 13:22 Pulse Rate 53 L 12/17/22 13:22 Respiratory Rate 16 12/17/22 13:22 Blood Pressure 135/77 12/17/22 13:22 Pulse Oximetry 97 12/17/22 13:22 MDM - Extremity (Nontraumatic) Medical Decision Making Physical exam completed and documented, radiograph examination reviewed, no acute findings noted. There is osteoarthritis that is present on the radiographic examination the patient has been previously seen for similar complaints. I will provide him a written prescription and discharge paperwork with recommendation to follow-up with his primary care provider. Medical Records I reviewed the patient's medical records. XR interpretation done by ED provider, pending radiology final review Discharge Plan Discharge Patient Disposition: Home Clinical Impression: Osteoarthritis of left hip Condition: Stable Prescriptions: New naproxen [Naprosyn] 500 mg tablet 500 mg PO BID Qty: 30 0RF No Action ascorbic acid (vitamin C) 1,000 mg tablet 1,000 mg PO BID (DME) Non-articular Polymer AFO to left See Rx Instructions .Route .MEDSUPPLY Qty: 1 0RF Rx Instructions: As directed by [facility] cyproheptadine 4 mg tablet 4 mg PO BID PRN (Reason: allergy symptoms) Qty: 60 2RF fluticasone propionate [Flonase Allergy Relief] 50 mcg/actuation spray,suspension 1 spray intranasal DAILY PRN (Reason: allergy symptoms) Qty: 16 3RF Rx Instructions: administer into each nostril methenamine hippurate 1 gram tablet 1 g PO BID Qty: 60 5RF amlodipine 10 mg tablet 10 mg PO DAILY Qty: 90 1RF Rx Instructions: He can take two of the 5 mg or one 10 mg daily lisinopril 20 mg tablet 20 mg PO DAILY Qty: 90 1RF metoprolol tartrate 25 mg tablet 25 mg PO DAILY Qty: 90 1RF Rx Instructions: Decreased due to heart rate to 1 daily, increase amlodipine and continue Lisinopril prednisone 20 mg tablet 40 mg PO DAILY Qty: 10 0RF (DME) AFO to the Left See Rx Instructions .Route .MEDSUPPLY Qty: 1 0RF Rx Instructions: As directed J P & O alprazolam 1 mg tablet 1 mg PO BID PRN (Reason: anxiety) 30 Days Qty: 60 2RF omeprazole 20 mg capsule,delayed release(DR/EC) 20 mg PO DAILY Qty: 30 5RF tamsulosin 0.4 mg capsule 0.4 mg PO DAILY Qty: 90 1RF hydrocodone-acetaminophen 10-325 mg tablet 1 - 2 tab PO QID PRN (Reason: Pain) fluvoxamine 50 mg tablet 50 mg PO BID aspirin 81 mg Tablet,Delayed Release (Dr/Ec) 81 mg PO DAILY Men's 50 Plus Multivitamin 400-20-370 mcg Tablet 1 tab PO DAILY Discharge Orders: Discharge ED (Routine); Ordered 12/17/22 Ordered By: Stevie Harmon Referrals: Mee Natarajan MD [Primary Care Provider] - Patient Instructions: Opioid Safety, Pain Management Coding Level of Care Code ED Rehabilitation Services Aide for Cielo Chopra
[2022-12-17 15:38] VITALS: BP 135/77; PULSE 53; RESP 16; O2SAT 97
== END 2022-12-17 15:39 | disposition home or self-care (01) ==
PROVIDERS: Emergency Provider Internal Medicine; PCP Internal Medicine
DX: M16.12 Unilateral primary osteoarthritis, left hip (principal); Z79.82 Long term (current) use of aspirin; I12.9 Hypertensive chronic kidney disease with stage 1 through stage 4 chronic kidney disease, or unspecified chronic kidney disease; N18.30 Chronic kidney disease, stage 3 unspecified; Z86.73 Personal history of transient ischemic attack (TIA), and cerebral infarction without residual deficits; Z96.651 Presence of right artificial knee joint
CPT/HCPCS: 72100; 73502; 99284

== ENCOUNTER → 2022-12-28 14:21 | Outpatient (BNVA) | payer MEDICARE, MEDICAID, SELFPAY | PROVIDERS: PCP Internal Medicine; Visit Provider Specialist | DX: M25.552 Pain in left hip | CPT/HCPCS: 73502; 99213 ==

== ENCOUNTER 2023-01-03 08:31 | Emergency (ER) | payer MEDICARE, MEDICAID, SELFPAY ==
--- NOTE | 2023-01-03 08:35 | XRR_ITS ---
PROCEDURE INFORMATION: Exam: XR Chest Exam date and time: 01/03/2023 9:34 AM Age: 77 years old Clinical indication: Cough; Additional info: Dyspnea/cough TECHNIQUE: Imaging protocol: Radiologic exam of the chest. Views: 1 view. COMPARISON: CR XR chest 1V portable [id number] 05/14/2022 10:28 AM FINDINGS: Lungs: Unremarkable. No consolidation. Pleural spaces: Unremarkable. No pleural effusion. No pneumothorax. Heart/Mediastinum: Unremarkable. No cardiomegaly. Bones/joints: Unremarkable. XR/XR chest 1V portable [id number] IMPRESSION: No acute findings.
[2023-01-03 09:10] VITALS: BP 107/65; PULSE 95; TEMP 37; O2SAT 97; BMI 30.1
--- NOTE | 2023-01-03 09:14 | ECG_ITS ---
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 Measurements Intervals [place] Rate: 86 P: 22 MN: 141 QRS: -5 QRSD: 94 T: 34 QT: 327 QTc: 393 Interpretive Statements SINUS RHYTHM MINIMAL VOLTAGE CRITERIA FOR LVH, CONSIDER NORMAL VARIANT [MEETS CRITERIA IN ONE OF: R(aVL), S(V1), R(V5), R(V5/V6)+S(V1)] Compared to ECG 05/14/2022 10:30:36 Sinus bradycardia no longer present Electronically Signed On 01-03-2023 15:33:17 BARREL MAKER by Carolyn Joe M.D. [id number]
[2023-01-03 09:18] VITALS: BP 94/62; PULSE 87; RESP 16; O2SAT 95
[2023-01-03 10:03] LABS: Alanine Aminotransferase 15 U/L (0-41); Albumin Level 3.6 g/dL (3.5-5.2); Alkaline Phosphatase 117 U/L (40-130); Anion Gap 16.8 (5-19); Aspartate Amino Transferase 16 U/L (0-40); Blood Urea Nitrogen 37 mg/dL (8-23); Calcium 9.8 mg/dL (8.5-10.5); Carbon Dioxide 19 mmol/L (22-29); Chloride 104 mmol/L (98-107); Globulin 2.6 g/dL (1.3-4.6); Glucose 109 mg/dL (65-115); Osmolality Calculated 291 mOsm/kg (285-295); Potassium 3.8 mmol/L (3.5-5.1); Sodium 136 mmol/L (136-145); Total Bilirubin 0.9 mg/dL (0.15-1.2); Total Protein 6.2 g/dL (6.6-8.7)
[2023-01-03 10:05] LABS: Basophils % 0.3 %; Hematocrit 40.1 % (37-53); Lymphocytes # 0.8 10^3/uL (0.8-4.8); Lymphocytes % 8.1 %; Mean Corpuscular HGB Conc 32.2 g/dL (30-55); Mean Corpuscular Hemoglobin 31.6 pg (27-33); Mean Corpuscular Volume 98.3 fl (82-101); Mean Platelet Volume 9.5 fL (7.4-10.4); Monocytes # 1.2 10^3/uL (0.2-0.9); Monocytes % 11.5 %; Neutrophils # 8.06 10^3/uL (1.8-7.7); Neutrophils % 79.6 %; Nucleated Red Blood Cells % 0 %; Platelet Count 132 10^3/cmm (157-399); Red Blood Count 4.08 10^6/uL (3.85-5.65); Red Cell Distribution Width 12.5 % (12.1-15.1); White Blood Count 10.13 10^3/uL (3.29-11.43)
--- NOTE | 2023-01-03 10:24 | ED_ITS ---
HPI - Weakness General: Chief complaint: Weakness Stated complaint: fever,not feeling well Time Seen by Provider: 01/03/23 08:35 Source: patient Mode of arrival: ambulatory History of Present Illness: 77-year-old male presents to the emergency room with complaints of fever generally not feeling well. Patient self caths he previously had a resection of his penis for squamous cell CA of the glans. He has not noticed increasing frequency generally not feeling well no fever. He has not noticed any hematuria. He has had recurrent UTIs in the past. He is not diabetic. Family is with him at the bedside they are concerned that he has had some cognitive decline recently MD Complaint: generalized weakness Onset (ago): day(s) Severity: moderate Relieving factors: none Exacerbating factors: none Associated symptoms: Denies chest pain, chills, confusion, melena, decreased appetite, diaphoresis, dysuria, easy bruising, fever(s), headache(s), myalgias, nausea, rash, short of breath, syncope or vomiting Review of Systems Const: Denies: fever(s), chills or diaphoresis Card: Denies: chest pain or syncope Resp: Denies: dyspnea GI: Denies: abdominal pain, nausea, vomiting or melena : Reports: urinary frequency; Denies: dysuria or urinary urgency Musc: Denies: neck pain or back pain Skin/Breast: Denies: rash Neuro: Denies: headache(s) or confusion Cliff/Lymph: Denies: easy bruising PFSH ED 2 PFSH: Medical History Allergic rhinitis due to allergen Anxiety Basal cell carcinoma, 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) Left, s/p Mohs Bradycardia with 41-50 beats per minute Chronic kidney disease, stage III (moderate) COVID-19 (10/16/20) Depression GERD (gastroesophageal reflux disease) History of cardiac arrhythmia Has has documented transient atrial fibrillation/flutter with rapid ventricu lar response with spontaneous conversion to sinus rhythm in 2013 post op, again 2017 during acute illness History of nonmelanoma skin cancer Hyperparathyroidism (04/08/20) Hypertension Meatal stenosis Obesity (BMI 30.0-34.9) Osteoarthritis involving multiple joints on both sides of body Neck, back & rt knee and rt AC joint Personal history of osteoporosis Recurrent UTI 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 Procedure done: 1. Dorsal relaxing incision to expose penile mass 2. Wide excision of invasive appearing penile lesion consistent grossly with squamous cell carcinoma. Involving the glans penis and incompletely resected. Squamous cell carcinoma History of knee surgery (10/2011) Dr Andres. Right knee arthroscopy, chondroplasty patella, medial femoral condyle, lateral femoral condyle and mild debridement of the posterior horn l ateral meniscus. History of laparoscopic cholecystectomy History of repair of right rotator cuff (04/2020) Dr Wolfe, Arthroscopic repair right rotator cuff, limited debridement including biceps tenotomy, labral debridement, subacromial bursectomy, and subacromial decompression History of surgery on upper extremity Left, s/p fracture S/P Mohs surgery for basal cell carcinoma Left arm 10/2021 Back planned 10/2021 Status post right knee replacement 03/23/2022 Dr. Wolfe Rt TKR Family History Mother , in her 80's Stroke Father , in his 60's Alcoholic Denies family history of Anesthesia complication Bleeding disorder Social History Smoking and tobacco/nicotine status: never used tobacco/nicotine Second hand smoke exposure: No Alcohol intake: never Substance/Drug Use: never Adopted: No Caregiver/support person: Yes Lives independently: Yes Household members: family and other Details: Son, grandson at house Housing: House Marital status: / Highest education level completed: High School Graduate service: No Current occupational status: retired Sexually active: No Do you think of yourself as: Straight/Heterosexual Current gender identity: Male Tri/Orthodoxy: Uatsdin Special tri needs: No Physical Exam Const: GENERAL APPEARANCE: cooperative and comfortable ORIENTATION/CONSCIOUSNESS: Yes awake, Yes oriented to person, Yes oriented to place and Yes oriented to time HENMT: COMMON NORMALS: normocephalic, atraumatic and hearing grossly normal bilaterally HEAD & SCALP: normocephalic and atraumatic Resp: COMMON NORMALS: normal respiratory effort, No retractions, No use of accessory muscles and clear to auscultation bilaterally AUSCULTATION: clear to auscultation bilaterally Cardio: COMMON NORMALS: regular rate, regular rhythm and No murmurs present (Cardio) RATE: regular rate RHYTHM: regular rhythm GI: COMMON NORMALS: Soft to palpation and No hepatosplenomegaly present AUSCULTATION: Yes normoactive bowel sounds PALPATION: Yes Soft to palpation, No Tenderness to palpation present (GI), No Guarding due to palpation present (GI) and Yes No hepatosplenomegaly present Extremity: COMMON NORMALS: normal to inspection, capillary refill normal, no clubbing, cyanosis or edema, no calf tenderness and no pedal edema Neuro: SENSORIUM/ORIENTATION: Yes oriented to person, Yes oriented to place and Yes oriented to time Skin: COMMON NORMALS: no rashes or lesions noted GENERAL SKIN EXAM: no rashes or lesions noted Course Vital Signs: Vital signs: Vital Signs Temperature 98.6 F 01/03/23 09:10 Pulse Rate 87 01/03/23 09:18 Respiratory Rate 16 01/03/23 09:18 Blood Pressure 94/62 01/03/23 09:18 Pulse Oximetry 95 01/03/23 09:18 Oxygen Delivery Me thod Room Air 01/03/23 09:18 MDM - Weakness Medical Decision Making Labs and imaging reviewed no leukocytosis does have some evidence of cystitis start the patient on oral antibiotics have him follow-up with his primary care return if has further problems. Differential Diagnosis Likely anemia, hypoglycemia, sepsis and dehydration Medical Records I reviewed the patient's medical records. Lab Data I reviewed the patient's lab results. 01/03/23 09:28 01/03/23 09:28 Radiology Impressions Chest X-Ray 01/03/23 08:35 IMPRESSION: No acute findings. Laboratory Results WBC 10.13 10^3/uL (3.29-11.43) 01/03/23 09:28 RBC 4.08 10^6/uL (3.85-5.65) 01/03/23 09:28 Hgb 12.90 g/dL (11.27-16.99) 01/03/23 09:28 Hct 40.1 % (37-53) 01/03/23 09:28 MCV 98.3 fl (82-101) 01/03/23 09: MCH 31.6 pg (27-33) 01/03/23 09: MCHC 32.2 g/dL (30-55) 01/03/23 09: RDW 12.5 % (12.1-15.1) 01/03/23 09: Plt Count 132 10^3/cmm (157-399) L 01/03/23 09: MPV 9.5 fL (7.4-10.4) 01/03/23 09: Neut % (Auto) 79.6 % 01/03/23 09: Lymph % (Auto) 8.1 % 01/03/23 09: [place] % (Auto) 11.5 % 01/03/23 09: Eos % (Auto) 0.0 % 01/03/23 09: Baso % (Auto) 0.3 % 01/03/23 09: Neut # (Auto) 8.06 10^3/uL (1.8-7.7) H 01/03/23 09: Lymph # (Auto) 0.8 10^3/uL (0.8-4.8) 01/03/23 09: [place] # (Auto) 1.2 10^3/uL (0.2-0.9) H 01/03/23 09: Eos # (Auto) 0.0 10^3/uL (0.0-0.8) 01/03/23 09: Baso # (Auto) 0.0 10^3/uL (0.0-0.1) 01/03/23 09: Nucleated RBC % (auto) 0 % 01/03/23 09: Nucleated RBCs # 0.0 /100WBC 01/03/23 09: Sodium 136 mmol/L (136-145) 01/03/23 09: Potassium 3.8 mmol/L (3.5-5.1) 01/03/23 09: Chloride 104 mmol/L (98-107) 01/03/23 09: Carbon Dioxide 19 mmol/L (22-29) L 01/03/23 09: Anion Gap 16.8 (5-19) 01/03/23 09: BUN 37 mg/dL (8-23) H 01/03/23 09: Creatinine 2.0 mg/dL (0.7-1.2) H 01/03/23 09: GFR Calculation Not Reportable 01/03/23: Glucose 109 mg/dL (65-115) 01/03/23 09: Calculated Osmolality 291 mOsm/kg (285-295) 01/03/23: Calcium 9.8 mg/dL (8.5-10.5) 01/03/23: Total Bilirubin 0.9 mg/dL (0.15-1.2) 01/03/23: AST 16 U/L (0-40) 01/03/23: ALT 15 U/L (0-41) 01/03/23 Alkaline Phosphatase 117 U/L (40-130) 01/03/23 09: Total Protein 6.2 g/dL (6.6-8.7) L 01/03/23: Albumin 3.6 g/dL (3.5-5.2) 01/03/23: Globulin 2.6 g/dL (1.3-4.6) 01/03/23 09: Urine Color Dark yellow (Yellow) 01/03/23 10:41 Urine Appearance Hazy (CLEAR) A 01/03/23 10:41 Urine pH 5 (5-7) 01/03/23 10:41 Ur Specific [place] 1.015 (1.005-1.030) 01/03/23 10:41 Urine Protein 1+ (Negative) H 01/03/23 10:41 Urine Glucose (UA) Norm (Normal) 01/03/23 10:41 Urine Ketones Negative (Negative) 01/03/23 10:41 Urine Blood 2+ (Negative) H 01/03/23 10:41 Urine Nitrate Positive (Negative) H 01/03/23 10:41 Urine Bilirubin Neg (Negative) 01/03/23 10:41 Urine Urobilinogen Norm mg/dL (Negative) 01/03/23 10:41 Ur Leukocyte Esterase 2+ (Negative) H 01/03/23 10:41 Urine RBC 5-10 /hpf (0-2) H 01/03/23 10:41 Urine WBC 55-80 /hpf (0-5) H 01/03/23 10:41 Ur Squamous Epith Cells 5-10 /hpf (0-5) H 01/03/23 10:41 Amorphous Sediment Not Reportable 01/03/23 10:41 Urine Bacteria 3+ /hpf (NONE) H 01/03/23 10:41 All radiology interpretation(s) finalized by discharge Discharge Plan Discharge Patient Disposition: Home Clinical Impression: Cystitis Condition: Stable Prescriptions: No Action ascorbic acid (vitamin C) 1,000 mg tablet 1,000 mg PO BID (DME) Non-articular Polymer AFO to left See Rx Instructions .Route .MEDSUPPLY Qty: 1 0RF Rx Instructions: As directed by [facility] methenamine hippurate 1 gram tablet 1 g PO BID Qty: 60 5RF amlodipine 10 mg tablet 10 mg PO DAILY Qty: 90 1RF lisinopril 20 mg tablet 20 mg PO DAILY Qty: 90 1RF metoprolol tartrate 25 mg tablet 25 mg PO DAILY Qty: 90 1RF Rx Instructions: Decreased due to heart rate to 1 daily, increase amlodipine and continue Lisinopril (DME) AFO to the Left See Rx Instructions .Route .MEDSUPPLY Qty: 1 0RF Rx Instructions: As directed [facility] omeprazole 20 mg capsule,delayed release(DR/EC) 20 mg PO DAILY Qty: 30 5RF tamsulosin 0.4 mg capsule 0.4 mg PO DAILY Qty: 90 1RF cyproheptadine 4 mg tablet 4 mg PO BID PRN (Reason: allergy symptoms) Qty: 60 2RF alprazolam 1 mg tablet 1 mg PO BID PRN (Reason: anxiety) 30 Days Qty: 60 2RF tizanidine 4 mg tablet 4 mg PO BEDTIME PRN (Reason: MUSCLE CRAMPS) hydrocodone-acetaminophen 10-325 mg tablet 1 - 2 tab PO QID PRN (Reason: Pain) fluvoxamine 50 mg tablet 50 mg PO BID aspirin 81 mg Tablet,Delayed Release (Dr/Ec) 81 mg PO DAILY Men's 50 Plus Multivitamin 400-20-370 mcg Tablet 1 tab PO DAILY naproxen [Naprosyn] 500 mg tablet 500 mg PO BID Qty: 30 0RF Discharge Orders: Discharge ED (Routine); Ordered 01/03/23 Ordered By: Elvis Becker Referrals: Mee Natarajan MD [Primary Care Provider] - Patient Instructions: Opioid Safety, Pain Management Activity Restrictions/Additional Instructions: Thank you for choosing [facility] for your healthcare needs today. Please realize this is an emergency room and that we are providing you with a medical screening exam and this may not be complete and all inclusive of all the testing and or work up that you may need to determine your ailment or severity of your illness. It is very important that you follow up as instructed or that you return to the Emergency Department should you have concerns or if your condi tion changes or worsens in any way. Follow-up with your doctor within the next 10 to 14 days to reevaluate. Coding Level of Care Code ED Assembler Production Line for Cielo Chopra
--- NOTE | 2023-01-03 10:40 | PC.PHAR ---
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 WOULD LIKE HELP GETTING THAT SET UP OR INFORMATION ON HOW TO GO ABOUT GETTING HELP. 01/03/23
[2023-01-03 11:23] LABS: Blood Urine 2+ (Negative); Glucose Urine UA Norm (Normal); Ketones Urine Negative (Negative); Nitrate Urine Positive (Negative); Protein Urine 1+ (Negative); Specific Gravity, Urine 1.015 (1.005-1.030); Urine Appearance Hazy (CLEAR); Urine Color Dark Yellow (Yellow); pH Urine 5 (5-7)
[2023-01-03 11:24] LABS: Add Urine Culture? Yes; Add Urine Microscopic? YES; Bacteria Urine 3+ /hpf; Bilirubin Urine Neg (Negative); Leukocyte Esterase Urine 2+ (Negative); Urobilinogen Urine Norm (Negative); WBC Urine 55-80 /hpf (0-5)
== END 2023-01-03 12:13 | disposition home or self-care (01) ==
PROVIDERS: Emergency Provider Family Medicine; PCP Internal Medicine
DX: N30.90 Cystitis, unspecified without hematuria (principal); Z79.82 Long term (current) use of aspirin; I12.9 Hypertensive chronic kidney disease with stage 1 through stage 4 chronic kidney disease, or unspecified chronic kidney disease; N18.30 Chronic kidney disease, stage 3 unspecified; Z86.73 Personal history of transient ischemic attack (TIA), and cerebral infarction without residual deficits; Z87.440 Personal history of urinary (tract) infections; Z85.49 Personal history of malignant neoplasm of other male genital organs
CPT/HCPCS: 71045; 80053; 81001; 85025; 87077; 87086; 87186; 93005; 99285

== ENCOUNTER 2023-01-20 03:07 | Emergency (ER) | payer MEDICARE, MEDICAID, SELFPAY ==
--- NOTE | 2023-01-20 03:07 | ECG_ITS ---
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 Measurements Intervals [place] Rate: 96 P: 64 FL: 161 QRS: 7 QRSD: 86 T: 74 QT: 330 QTc: 419 Interpretive Statements SINUS RHYTHM POSSIBLE LEFT ATRIAL ENLARGEMENT [-0.1mV P-WAVE IN V1/V2] Anterolateral ST changes suggestive of ischemia Compared to ECG 01/03/2023 09:14:57 ST (T wave) deviation now present Electronically Signed On 01-21-2023 13:25:40 DIRECTOR OF MATH by Mary Hernadez M.D. [id number]
--- NOTE | 2023-01-20 03:09 | XRR_ITS ---
PROCEDURE INFORMATION: Exam: XR Chest Exam date and time: 01/20/2023 3:19 AM Age: 77 years old Clinical indication: Other: Back pain; Additional info: Chest pain TECHNIQUE: Imaging protocol: Radiologic exam of the chest. Views: 1 view. COMPARISON: CR (CHEST, ) 01/03/2023 9:34 AM FINDINGS: Lungs: Unremarkable. No consolidation. Pleural spaces: Unremarkable. No pleural effusion. No pneumothorax. Heart/Mediastinum: Unremarkable. No cardiomegaly. Bones/joints: Unremarkable. XR/XR chest 1V portable [id number] IMPRESSION: No acute findings.
[2023-01-20 03:11] VITALS: BP 157/79; PULSE 95; RESP 25; TEMP 36.2; O2SAT 100; BMI 29.5
--- NOTE | 2023-01-20 03:13 | W.ED.CHESTPA ---
Documented by User: Angel Santizo DO 01/20/23 05:32 HPI - Chest Pain General: Chief Complaint: Chest Pain Stated Complaint: CP Time Seen by Provider: 01/20/23 03:08 History of Present Illness: Patient presents to the ER with complaints of chest pain shortness of breath and nausea. Patient states is all started somewhere between an hour ago and dark. Patient is midsternal does not radiate and is not reproducible patient does state he takes an aspirin every day. Patient does not state he has any cardiac history. Patient does have hypertension. Patient is allergic to Bactrim and penicillin. Per reviewing the chart patient does have a history of nonsustained atrial fibrillation. When patient's family arrived they said he is a little more confused than normal and this started yesterday. They ask us if we can check a urinalysis on him because last time he was is confused he had a UTI. Patient does have a catheter in place. Review of Systems General: Reports: 10 or more systems reviewed and unremarkable except in HPI and below PFSH ED PFSH: Medical History Allergic rhinitis due to allergen Anxiety Basal cell carcinoma, 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) Left, s/p Mohs Bradycardia with 41-50 beats per minute Chronic kidney disease, stage III (moderate) COVID-19 (10/16/20) Depression GERD (gastroesophageal reflux disease) History of cardiac arrhythmia Has has documented transient atrial fibrillation/flutter with rapid ventricular response with spontaneous conversion to sinus rhythm in 2013 post op, again 2017 during acute illness History of nonmelanoma skin cancer Hyperparathyroidism (04/08/20) Hypertension Meatal stenosis Obesity (BMI 30.0-34.9) Osteoarthritis involving multiple joints on both sides of body Neck, back & rt knee and rt AC joint Personal history of osteoporosis Recurrent UTI 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 Procedure done: 1. Dorsal relaxing incision to expose penile mass 2. Wide excision of invasive appearing penile lesion consistent grossly with squamous cell carcinoma. Involving the glans penis and incompletely resected. Squamous cell carcinoma History of knee surgery (10/2011) Dr Andres. Right knee arthroscopy, chondroplasty patella, medial femoral condyle, lateral femoral condyle and mild debridement of the posterior horn lateral meniscus. History of laparoscopic cholecystectomy History of repair of right rotator cuff (04/2020) Dr Wolfe, Arthroscopic repair right rotator cuff, limited debridement including biceps tenotomy, labral debridement, subacromial bursectomy, and subacromial decompression History of surgery on upper extremity Left, s/p fracture S/P Mohs surgery for basal cell carcinoma Left arm 10/2021 Back planned 10/2021 Status post right knee replacement 03/23/2022 Dr. Wolfe Rt TKR Family History Mother , in her 80's Stroke Father , in his 60's Alcoholic Denies family history of Anesthesia complication Bleeding disorder Social History Smoking and tobacco/nicotine status: never used tobacco/nicotine Second hand smoke exposure: No Alcohol intake: never Substance/Drug Use: never Adopted: No Caregiver/support person: Yes Lives independently: Yes Household members: family and other Details: Son, grandson at house Housing: House Marital status: / Highest education level completed: High School Graduate service: No Current occupational status: retired Sexually active: No Do you think of yourself as: Straight/Heterosexual Current gender identity: Male Tri/Synagogue: Church Special tri needs: No Physical Exam Const: COMMON NORMALS: no acute distress, average body habitus, patient oriented x3, no limitations, healthy appearing, alert and well nourished HENMT: COMMON NORMALS: normocephalic, atraumatic, hearing grossly normal bilaterally, external ears normal, Normal external nose present, moist oral mucous membranes and oropharynx normal HEAD & SCALP: normocephalic and atraumatic NOSE: Normal external nose present EXTERNAL EAR: Yes external ears normal Eye: COMMON NORMALS: Equal, round and reactive pupils present, EOMs intact bilaterally, conjunctivae normal and no scleral icterus CONJUNCTIVA: Yes conjunctivae normal PUPIL: Yes Equal, round and reactive pupils present Neck/C-Spine: COMMON NORMALS: no JVD Chest: COMMONS NORMALS: normal inspection of the chest and normal palpation of entire chest wall Resp: COMMON NORMALS: normal respiratory effort, No retractions, No use of accessory muscles and clear to auscultation bilaterally AUSCULTATION: clear to auscultation bilaterally Cardio: COMMON NORMALS: no JVD, regular rate, regular rhythm, S1 normal heart sound present, S2 normal heart sound present, No gallops present (Cardio), No clicks present (Cardio), No murmurs present (Cardio) and No rub (Cardio) RATE: regular rate RHYTHM: regular rhythm HEART SOUNDS: S1 normal heart sound present and S2 normal heart sound present GI: COMMON NORMALS: Normal to inspection, nondistended, normoactive bowel sounds present, Soft to palpation, non-tender, No hepatosplenomegaly present and no masses PALPATION: Yes Soft to palpation and Yes No hepatosplenomegaly present Neuro: COMMON NORMALS: patient oriented x3 SENSORIUM/ORIENTATION: Yes alert Course Vital Signs: Vital signs: Vital Signs Temperature 97.2 F L 01/20/23 03:11 Pulse Rate 102 H 01/20/23 05:39 Respiratory Rate 20 H 01/20/23 05:39 Blood Pressure 153/88 01/20/23 04:33 Pulse Oximetry 97 01/20/23 05:39 Oxygen Delivery Me thod Room Air 01/20/23 05:39 MDM - Chest Pain Differential Diagnosis Unlikely acute massive pulmonary embolism, acute respiratory failure, acute myocardial infarction, cardiac arrest or sudden cardiac Medical Records I reviewed the patient's medical records. Lab Data I reviewed the patient's lab results. 01/20/23 03:13 01/20/23 03:13 Radiology Impressions Chest X-Ray 01/20/23 03:09 IMPRESSION: No acute findings. Laboratory Results WBC 8.69 10^3/uL (3.29-11.43) 01/20/23 03:13 RBC 4.11 10^6/uL (3.85-5.65) 01/20/23 03:13 Hgb 12.90 g/dL (11.27-16.99) 01/20/23 03:13 Hct 38.9 % (37-53) 01/20/23 03:13 MCV 94.6 fl (82-101) 01/20/23 03:13 MCH 31.4 pg (27-33) 01/20/23 03:13 MCHC 33.2 g/dL (30-55) 01/20/23 03:13 RDW 13.2 % (12.1-15.1) 01/20/23 03:13 Plt Count 185 10^3/cmm (157-399) 01/20/23 03:13 MPV 8.4 fL (7.4-10.4) 01/20/23 03:13 Neut % (Auto) 77.9 % 01/20/23 03:13 Lymph % (Auto) 13.8 % 01/20/23 03:13 [place] % (Auto) 6.1 % 01/20/23 03:13 Eos % (Auto) 1.2 % 01/20/23 03:13 Baso % (Auto) 0.5 % 01/20/23 03:13 Neut # (Auto) 6.78 10^3/uL (1.8-7.7) 01/20/23 03:13 Lymph # (Auto) 1.2 10^3/uL (0.8-4.8) 01/20/23 03:13 [place] # (Auto) 0.5 10^3/uL (0.2-0.9) 01/20/23 03:13 Eos # (Auto) 0.1 10^3/uL (0.0-0.8) 01/20/23 03:13 Baso # (Auto) 0.0 10^3/uL (0.0-0.1) 01/20/23 03:13 Nucleated RBC % (auto) 0 % 01/20/23 03:13 Nucleated RBCs # 0.0 /100WBC 01/20/23 03:13 Sodium 135 mmol/L (136-145) L 01/20/23 03:13 Potassium 3.6 mmol/L (3.5-5.1) 01/20/23 03:13 Chloride 101 mmol/L (98-107) 01/20/23 03:13 Carbon Dioxide 19 mmol/L (22-29) L 01/20/23 03:13 Anion Gap 18.6 (5-19) 01/20/23 03:13 BUN 21 mg/dL (8-23) 01/20/23 03:13 Creatinine 1.6 mg/dL (0.7-1.2) H 01/20/23 03:13 GFR Calculation Not Reportable 01/20/23 03:13 Glucose 128 mg/dL (65-115) H 01/20/23 03:13 Calculated Osmolality 285 mOsm/kg (285-295) 01/20/23 03:13 Calcium 10.0 mg/dL (8.5-10.5) 01/20/23 03:13 Total Bilirubin 0.7 mg/dL (0.15-1.2) 01/20/23 03:13 AST 21 U/L (0-40) 01/20/23 03:13 ALT 23 U/L (0-41) 01/20/23 03:13 Alkaline Phosphatase 110 U/L (40-130) 01/20/23 03:13 Troponin T Baseline 66 ng/L (0-15) H 01/20/23 03:13 Troponin T 120 Minute 67.99 ng/L (0-15) H 01/20/23 04:51 Delta Troponin T 1.99 ABS# (0-10) 01/20/23 04:51 Total Protein 6.6 g/dL (6.6-8.7) 01/20/23 03:13 Albumin 3.9 g/dL (3.5-5.2) 01/20/23 03:13 Globulin 2.7 g/dL (1.3-4.6) 01/20/23 03:13 Urine Color Yellow (Yellow) 01/20/23 05:37 Urine Appearance Sl hazy (CLEAR) A 01/20/23 05:37 Urine pH 6 (5-7) 01/20/23 05:37 Ur Specific [place] 1.010 (1.005-1.030) 01/20/23 05:37 Urine Protein Trace (Negative) 01/20/23 05:37 Urine Glucose (UA) Norm (Normal) 01/20/23 05:37 Urine Ketones 1+ (Negative) H 01/20/23 05:37 Urine Blood 3+ (Negative) H 01/20/23 05:37 Urine Nitrate Negative (Negative) 01/20/23 05:37 Urine Bilirubin Neg (Negative) 01/20/23 05:37 Urine Urobilinogen Norm mg/dL (Negative) 01/20/23 05:37 Ur Leukocyte Esterase 1+ (Negative) H 01/20/23 05:37 Urine RBC >100 /hpf (0-2) H 01/20/23 05:37 Urine WBC 0-4 /hpf (0-5) H 01/20/23 05:37 Ur Squamous Epith Cells 0-4 /hpf (0-5) H 01/20/23 05:37 Amorphous Sediment Not Reportable 01/20/23 05:37 Urine Bacteria Trace /hpf (NONE) 01/20/23 05:37 All radiology interpretation(s) finalized by discharge EKG Data EKG 1: I personally reviewed and interpreted this EKG as follows: EKG interpretation date: 01/20/23 EKG interpretation time: 03:07 Prior EKG tracings: available for review Interpretation: EKG shows ventricular rate 96 bpm, WA interval 161, QRS duration 86, QTc 384, sinus rhythm, possible left atrial lodgment, moderate ST depression Discharge Plan Discharge Patient Disposition: Home Clinical Impression: Chest pain Condition: Stable Prescriptions: No Action ascorbic acid (vitamin C) 1,000 mg tablet 1,000 mg PO BID (DME) Non-articular Polymer AFO to left See Rx Instructions .Route .MEDSUPPLY Qty: 1 0RF Rx Instructions: As directed by [facility] methenamine hippurate 1 gram tablet 1 g PO BID Qty: 60 5RF amlodipine 10 mg tablet 10 mg PO DAILY Qty: 90 1RF lisinopril 20 mg tablet 20 mg PO DAILY Qty: 90 1RF metoprolol tartrate 25 mg tablet 25 mg PO DAILY Qty: 90 1RF Rx Instructions: Decreased due to heart rate to 1 daily, increase amlodipine and continue Lisinopril (DME) AFO to the Left See Rx Instructions .Route .MEDSUPPLY Qty: 1 0RF Rx Instructions: As directed [facility] omeprazole 20 mg capsule,delayed release(DR/EC) 20 mg PO DAILY Qty: 30 5RF tamsulosin 0.4 mg capsule 0.4 mg PO DAILY Qty: 90 1RF cyproheptadine 4 mg tablet 4 mg PO BID PRN (Reason: allergy symptoms) Qty: 60 2RF alprazolam 1 mg tablet 1 mg PO BID PRN (Reason: anxiety) 30 Days Qty: 60 2RF tizanidine 4 mg tablet 4 mg PO BEDTIME PRN (Reason: MUSCLE CRAMPS) hydrocodone-acetaminophen 10-325 mg tablet 1 - 2 tab PO QID PRN (Reason: Pain) fluvoxamine 50 mg tablet 50 mg PO BID aspirin 81 mg Tablet,Delayed Release (Dr/Ec) 81 mg PO DAILY Men's 50 Plus Multivitamin 400-20-370 mcg Tablet 1 tab PO DAILY naproxen [Naprosyn] 500 mg tablet 500 mg PO BID Qty: 30 0RF Discharge Orders: Discharge ED (Routine); Ordered 01/20/23 Ordered By: Fe Vázquez Referrals: Mee Natarajan MD [Primary Care Provider] - 1-3 days Discharge Diet: Advance as tolerated Discharge Activity: Resume usual activity Patient Instructions: Chest Pain (ED) Coding Level of Care Code ED Acid Polymerization Operator for Chg Fwd Documented by User: Fe Vázquez MD 01/20/23 06:18 HPI - Chest Pain General: Chief Complaint: Chest Pain Stated Complaint: CP Time Seen by Provider: 01/20/23 03:08 PFSH ED PFSH: Medical History Allergic rhinitis due to allergen Anxiety Basal cell carcinoma, 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) Left, s/p Mohs Bradycardia with 41-50 beats per minute Chronic kidney disease, stage III (moderate) COVID-19 (10/16/20) Depression GERD (gastroesophageal reflux disease) History of cardiac arrhythmia Has has documented transient atrial fibrillation/flutter with rapid ventricular response with spontaneous conversion to sinus rhythm in 2013 post op, again 2017 during acute illness History of nonmelanoma skin cancer Hyperparathyroidism (04/08/20) Hypertension Meatal stenosis Obesity (BMI 30.0-34.9) Osteoarthritis involving multiple joints on both sides of body Neck, back & rt knee and rt AC joint Personal history of osteoporosis Recurrent UTI 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 Procedure done: 1. Dorsal relaxing incision to expose penile mass 2. Wide excision of invasive appearing penile lesion consistent grossly with squamous cell carcinoma. Involving the glans penis and incompletely resected. Squamous cell carcinoma History of knee surgery (10/2011) Dr Andres. Right knee arthroscopy, chondroplasty patella, medial femoral condyle, lateral femoral condyle and mild debridement of the posterior horn lateral meniscus. History of laparoscopic cholecystectomy History of repair of right rotator cuff (04/2020) Dr Wolfe, Arthroscopic repair right rotator cuff, limited debridement including biceps tenotomy, labral debridement, subacromial bursectomy, and subacromial decompression History of surgery on upper extremity Left, s/p fracture S/P Mohs surgery for basal cell carcinoma Left arm 10/2021 Back planned 10/2021 Status post right knee replacement 03/23/2022 Dr. Wolfe Rt TKR Family History Mother , in her 80's Stroke Father , in his 60's Alcoholic Denies family history of Anesthesia complication Bleeding disorder Social History Smoking and tobacco/nicotine status: never used tobacco/nicotine Second hand smoke exposure: No Alcohol intake: never Substance/Drug Use: never Adopted: No Caregiver/support person: Yes Lives independently: Yes Household members: family and other Details: Son, grandson at house Housing: House Marital status: / Highest education level completed: High School Graduate service: No Current occupational status: retired Sexually active: No Do you think of yourself as: Straight/Heterosexual Current gender identity: Male Tri/Synagogue: Church Special tri needs: No Course Vital Signs: Vital signs: Vital Signs Temperature 97.2 F L 01/20/23 03:11 Pulse Rate 102 H 01/20/23 05:39 Respiratory Rate 20 H 01/20/23 05:39 Blood Pressure 153/88 01/20/23 04:33 Pulse Oximetry 97 01/20/23 05:39 Oxygen Delivery Me thod Room Air 01/20/23 05:39 MDM - Chest Pain Medical Decision Making Patient presents here with chest pain his cardiac work-up here was normal patient was turned over to me pending his urinalysis did have some hematuria be does have a King in place no signs of infection he is stable for discharge follow-up with PCP and return if worsening. Lab Data 01/20/23 03:13 01/20/23 03:13 Radiology Impressions Chest X-Ray 01/20/23 03:09 IMPRESSION: No acute findings. Laboratory Results WBC 8.69 10^3/uL (3.29-11.43) 01/20/23 03:13 RBC 4.11 10^6/uL (3.85-5.65) 01/20/23 03:13 Hgb 12.90 g/dL (11.27-16.99) 01/20/23 03:13 Hct 38.9 % (37-53) 01/20/23 03:13 MCV 94.6 fl (82-101) 01/20/23 03:13 MCH 31.4 pg (27-33) 01/20/23 03:13 MCHC 33.2 g/dL (30-55) 01/20/23 03:13 RDW 13.2 % (12.1-15.1) 01/20/23 03:13 Plt Count 185 10^3/cmm (157-399) 01/20/23 03:13 MPV 8.4 fL (7.4-10.4) 01/20/23 03:13 Neut % (Auto) 77.9 % 01/20/23 03:13 Lymph % (Auto) 13.8 % 01/20/23 03:13 [place] % (Auto) 6.1 % 01/20/23 03:13 Eos % (Auto) 1.2 % 01/20/23 03:13 Baso % (Auto) 0.5 % 01/20/23 03:13 Neut # (Auto) 6.78 10^3/uL (1.8-7.7) 01/20/23 03:13 Lymph # (Auto) 1.2 10^3/uL (0.8-4.8) 01/20/23 03:13 [place] # (Auto) 0.5 10^3/uL (0.2-0.9) 01/20/23 03:13 Eos # (Auto) 0.1 10^3/uL (0.0-0.8) 01/20/23 03:13 Baso # (Auto) 0.0 10^3/uL (0.0-0.1) 01/20/23 03:13 Nucleated RBC % (auto) 0 % 01/20/23 03:13 Nucleated RBCs # 0.0 /100WBC 01/20/23 03:13 Sodium 135 mmol/L (136-145) L 01/20/23 03:13 Potassium 3.6 mmol/L (3.5-5.1) 01/20/23 03:13 Chloride 101 mmol/L (98-107) 01/20/23 03:13 Carbon Dioxide 19 mmol/L (22-29) L 01/20/23 03:13 Anion Gap 18.6 (5-19) 01/20/23 03:13 BUN 21 mg/dL (8-23) 01/20/23 03:13 Creatinine 1.6 mg/dL (0.7-1.2) H 01/20/23 03:13 GFR Calculation Not Reportable 01/20/23 03:13 Glucose 128 mg/dL (65-115) H 01/20/23 03:13 Calculated Osmolality 285 mOsm/kg (285-295) 01/20/23 03:13 Calcium 10.0 mg/dL (8.5-10.5) 01/20/23 03:13 Total Bilirubin 0.7 mg/dL (0.15-1.2) 01/20/23 03:13 AST 21 U/L (0-40) 01/20/23 03:13 ALT 23 U/L (0-41) 01/20/23 03:13 Alkaline Phosphatase 110 U/L (40-130) 01/20/23 03:13 Troponin T Baseline 66 ng/L (0-15) H 01/20/23 03:13 Troponin T 120 Minute 67.99 ng/L (0-15) H 01/20/23 04:51 Delta Troponin T 1.99 ABS# (0-10) 01/20/23 04:51 Total Protein 6.6 g/dL (6.6-8.7) 01/20/23 03:13 Albumin 3.9 g/dL (3.5-5.2) 01/20/23 03:13 Globulin 2.7 g/dL (1.3-4.6) 01/20/23 03:13 Urine Color Yellow (Yellow) 01/20/23 05:37 Urine Appearance Sl hazy (CLEAR) A 01/20/23 05:37 Urine pH 6 (5-7) 01/20/23 05:37 Ur Specific [place] 1.010 (1.005-1.030) 01/20/23 05:37 Urine Protein Trace (Negative) 01/20/23 05:37 Urine Glucose (UA) Norm (Normal) 01/20/23 05:37 Urine Ketones 1+ (Negative) H 01/20/23 05:37 Urine Blood 3+ (Negative) H 01/20/23 05:37 Urine Nitrate Negative (Negative) 01/20/23 05:37 Urine Bilirubin Neg (Negative) 01/20/23 05:37 Urine Urobilinogen Norm mg/dL (Negative) 01/20/23 05:37 Ur Leukocyte Esterase 1+ (Negative) H 01/20/23 05:37 Urine RBC >100 /hpf (0-2) H 01/20/23 05:37 Urine WBC 0-4 /hpf (0-5) H 01/20/23 05:37 Ur Squamous Epith Cells 0-4 /hpf (0-5) H 01/20/23 05:37 Amorphous Sediment Not Reportable 01/20/23 05:37 Urine Bacteria Trace /hpf (NONE) 01/20/23 05:37 Discharge Plan Discharge Patient Disposition: Home Clinical Impression: Chest pain Condition: Stable Prescriptions: No Action ascorbic acid (vitamin C) 1,000 mg tablet 1,000 mg PO BID (DME) Non-articular Polymer AFO to left See Rx Instructions .Route .MEDSUPPLY Qty: 1 0RF Rx Instructions: As directed by [facility] methenamine hippurate 1 gram tablet 1 g PO BID Qty: 60 5RF amlodipine 10 mg tablet 10 mg PO DAILY Qty: 90 1RF lisinopril 20 mg tablet 20 mg PO DAILY Qty: 90 1RF metoprolol tartrate 25 mg tablet 25 mg PO DAILY Qty: 90 1RF Rx Instructions: Decreased due to heart rate to 1 daily, increase amlodipine and continue Lisinopril (DME) AFO to the Left See Rx Instructions .Route .MEDSUPPLY Qty: 1 0RF Rx Instructions: As directed [facility] omeprazole 20 mg capsule,delayed release(DR/EC) 20 mg PO DAILY Qty: 30 5RF tamsulosin 0.4 mg capsule 0.4 mg PO DAILY Qty: 90 1RF cyproheptadine 4 mg tablet 4 mg PO BID PRN (Reason: allergy symptoms) Qty: 60 2RF alprazolam 1 mg tablet 1 mg PO BID PRN (Reason: anxiety) 30 Days Qty: 60 2RF tizanidine 4 mg tablet 4 mg PO BEDTIME PRN (Reason: MUSCLE CRAMPS) hydrocodone-acetaminophen 10-325 mg tablet 1 - 2 tab PO QID PRN (Reason: Pain) fluvoxamine 50 mg tablet 50 mg PO BID aspirin 81 mg Tablet,Delayed Release (Dr/Ec) 81 mg PO DAILY Men's 50 Plus Multivitamin 400-20-370 mcg Tablet 1 tab PO DAILY naproxen [Naprosyn] 500 mg tablet 500 mg PO BID Qty: 30 0RF Discharge Orders: Discharge ED (Routine); Ordered 01/20/23 Ordered By: Fe Vázquez Referrals: Mee Natarajan MD [Primary Care Provider] - 1-3 days Discharge Diet: Advance as tolerated Discharge Activity: Resume usual activity Patient Instructions: Chest Pain (ED) Coding Level of Care Code ED Acid Polymerization Operator for Cielo Chopra
[2023-01-20 03:19] LABS: Basophils % 0.5 %; Eosinophils # 0.1 10^3/uL (0.0-0.8); Eosinophils % 1.2 %; Hematocrit 38.9 % (37-53); Lymphocytes # 1.2 10^3/uL (0.8-4.8); Lymphocytes % 13.8 %; Mean Corpuscular HGB Conc 33.2 g/dL (30-55); Mean Corpuscular Hemoglobin 31.4 pg (27-33); Mean Corpuscular Volume 94.6 fl (82-101); Mean Platelet Volume 8.4 fL (7.4-10.4); Monocytes # 0.5 10^3/uL (0.2-0.9); Monocytes % 6.1 %; Neutrophils # 6.78 10^3/uL (1.8-7.7); Neutrophils % 77.9 %; Nucleated Red Blood Cells % 0 %; Platelet Count 185 10^3/cmm (157-399); Red Blood Count 4.11 10^6/uL (3.85-5.65); Red Cell Distribution Width 13.2 % (12.1-15.1); White Blood Count 8.69 10^3/uL (3.29-11.43)
[2023-01-20 03:28] VITALS: BP 157/79; PULSE 88; RESP 18; O2SAT 100
[2023-01-20] MEDS: ketorolac 30 mg/mL INJ IVP (03:28)
[2023-01-20] MEDS: ondansetron 2 mg/ML SDV 2 mL 4 MG IVP (03:28)
[2023-01-20 03:37] LABS: Alanine Aminotransferase 23 U/L (0-41); Albumin Level 3.9 g/dL (3.5-5.2); Alkaline Phosphatase 110 U/L (40-130); Anion Gap 18.6 (5-19); Aspartate Amino Transferase 21 U/L (0-40); Blood Urea Nitrogen 21 mg/dL (8-23); Carbon Dioxide 19 mmol/L (22-29); Chloride 101 mmol/L (98-107); Globulin 2.7 g/dL (1.3-4.6); Glucose 128 mg/dL (65-115); Osmolality Calculated 285 mOsm/kg (285-295); Potassium 3.6 mmol/L (3.5-5.1); Sodium 135 mmol/L (136-145); Total Bilirubin 0.7 mg/dL (0.15-1.2); Total Protein 6.6 g/dL (6.6-8.7)
[2023-01-20 03:39] LABS: Troponin(5th) Baseline 66 ng/L (0-15)
[2023-01-20 04:33] VITALS: BP 153/88; PULSE 85; RESP 18; O2SAT 98
[2023-01-20 05:15] LABS: Troponin 5 2HR 67.99 ng/L (0-15)
[2023-01-20 05:16] LABS: Troponin 5 2HR Delta 1.99 ABS# (0-10)
[2023-01-20 05:39] VITALS: PULSE 102; RESP 20; O2SAT 97
[2023-01-20 05:57] LABS: Add Urine Microscopic? YES; Bilirubin Urine Neg (Negative); Blood Urine 3+ (Negative); Glucose Urine UA Norm (Normal); Ketones Urine 1+ (Negative); Leukocyte Esterase Urine 1+ (Negative); Nitrate Urine Negative (Negative); Protein Urine Trace (Negative); RBC Urine >100 /hpf (0-2); Urine Appearance SL Hazy (CLEAR); Urine Color Yellow (Yellow); Urobilinogen Urine Norm (Negative); WBC Urine 0-4 /hpf (0-5); pH Urine 6 (5-7)
[2023-01-20 05:58] LABS: Add Urine Culture? Yes; Bacteria Urine TRACE /hpf; Squamous Epithelial Cell Urine 0-4 /hpf (0-5)
[2023-01-20 06:16] VITALS: BP 168/95; PULSE 96; RESP 18; O2SAT 97
== END 2023-01-20 06:26 | disposition home or self-care (01) ==
PROVIDERS: Emergency Provider Emergency Medicine; PCP Internal Medicine
DX: R07.9 Chest pain, unspecified (principal); Z79.82 Long term (current) use of aspirin; Z86.73 Personal history of transient ischemic attack (TIA), and cerebral infarction without residual deficits; I12.9 Hypertensive chronic kidney disease with stage 1 through stage 4 chronic kidney disease, or unspecified chronic kidney disease; N18.30 Chronic kidney disease, stage 3 unspecified
CPT/HCPCS: 71045; 80053; 81001; 84484; 85025; 87086; 93005; 93010; 96374; 96375; 99285; J1885; J2405

== ENCOUNTER → 2023-02-11 16:49 | Outpatient (BNVA) | payer MEDICARE, MEDICAID, SELFPAY | PROVIDERS: PCP Internal Medicine; Visit Provider Nurse Practitioner Family | DX: R39.9 Unspecified symptoms and signs involving the genitourinary system (principal) | CPT/HCPCS: 81000 ==

== ENCOUNTER → 2023-02-17 13:04 | Outpatient (BNVA) | payer MEDICARE, MEDICAID, SELFPAY | PROVIDERS: PCP Family Medicine Adult Medicine; Visit Provider Family Medicine Adult Medicine | DX: N40.1 Benign prostatic hyperplasia with lower urinary tract symptoms (principal); N13.8 Other obstructive and reflux uropathy; I13.0 Hypertensive heart and chronic kidney disease with heart failure and stage 1 through stage 4 chronic kidney disease, or unspecified chronic kidney disease; N18.30 Chronic kidney disease, stage 3 unspecified; N35.919 Unspecified urethral stricture, male, unspecified site | CPT/HCPCS: 80053; 85025 ==

== ENCOUNTER → 2023-03-24 08:54 | Outpatient (BNVA) | payer MEDICARE, MEDICAID, SELFPAY | PROVIDERS: PCP Family Medicine Adult Medicine; Visit Provider Podiatrist Foot & Ankle Surgery | DX: M25.372 Other instability, left ankle; M19.172 Post-traumatic osteoarthritis, left ankle and foot | CPT/HCPCS: 99213 ==

== ENCOUNTER → 2023-03-29 09:26 | Outpatient (BNVA) | payer MEDICARE, MEDICAID, SELFPAY | PROVIDERS: PCP Family Medicine Adult Medicine; Referring Provider Internal Medicine; Visit Provider Surgery | DX: Z12.11 Encounter for screening for malignant neoplasm of colon | CPT/HCPCS: 99024; 99204 ==

== ENCOUNTER 2023-03-29 15:33 | Outpatient (CLI) | payer MEDICARE, MEDICAID, SELFPAY | END 2023-03-29 15:34 | disposition home or self-care (01) | LOC: LAB 15:36 | PROVIDERS: PCP Family Medicine Adult Medicine; Visit Provider Surgery | DX: K59.00 Constipation, unspecified (principal) | CPT/HCPCS: 82274 ==

== ENCOUNTER → 2023-04-06 11:01 | Outpatient (BNVA) | payer MEDICARE, MEDICAID, SELFPAY | PROVIDERS: PCP Family Medicine Adult Medicine; Visit Provider Surgery | DX: K92.2 Gastrointestinal hemorrhage, unspecified | CPT/HCPCS: 99203; 99212 ==

== ENCOUNTER → 2023-04-12 08:27 | Outpatient (BNVA) | payer MEDICARE, MEDICAID, SELFPAY | PROVIDERS: PCP Family Medicine Adult Medicine; Visit Provider Specialist | DX: M25.561 Pain in right knee; G89.29 Other chronic pain; Z96.651 Presence of right artificial knee joint | CPT/HCPCS: 73560; 73565; 99214 ==

== ENCOUNTER 2023-05-20 07:54 | Day surgery (SDC) | payer MEDICARE, MEDICAID, SELFPAY ==
--- NOTE | 2023-05-20 08:21 | P.HP_ITS ---
Same Day Surgery H&P Indication for Procedure/HPI DATE OF PROCEDURE: May 20, 2023 CHIEF COMPLAINT/INDICATIONFOR SURGICAL PROCEDURE: need for screening colonoscopy PREOP DIAGNOSIS: need for screening colonoscopy PLANNED PROCEDURE: Operation Date: 05/20/23 09:05 Proposed Procedures p 43764 colon, G0105 screen colon H risk Z12.11(Not Applicable) - Viet Mcclure MD Medications/Allergies* Home Medications Medication Instructions Recorded Confirmed Type ascorbic acid (vitamin C) 1,000 mg 1,000 mg PO BID 03/27/21 05/18/23 History tablet fluvoxamine 50 mg tablet 50 mg PO BID 05/19/21 05/18/23 History hydrocodone 10 mg-acetaminophen 1 - 2 tab PO QID PRN Pain 05/19/21 05/18/23 History 325 mg tablet aspirin 81 mg tablet,delayed 81 mg PO DAILY 12/01/21 05/18/23 History release [id number] acid-vit 1 tab PO DAILY 12/01/21 05/18/23 History K-lycop 400 mcg-20 mcg-370 mcg tablet (Men's 50 Plus Multivitamin) alprazolam 1 mg tablet (Xanax) 1 mg PO BID PRN anxiety 05/18/23 05/18/23 History Allergies/Adverse Reactions Allergy/AdvReac Type Severity Reaction Status Date / Time Penicillins Allergy Intermediate rash Verified 04/12/23 08:37 sulfamethoxazole Allergy Hallucianti Verified 04/12/23 08:37 [From Bactrim] ons trimethoprim [From Bactrim] Allergy Hallucianti Verified 04/12/23 08:37 ons Pertinent History/Comorbid Conditions* Medical History (Updated 04/30/23 @ 18:21 by Charlie Jay MD) Acute myofascial strain of lumbosacral region BPH w urinary obs/LUTS Bradycardia with 41-50 beats per minute Urethral stricture Recurrent UTI Sacroiliac inflammation Personal history of osteoporosis Allergic rhinitis due to allergen Hyperparathyroidism (04/08/20) COVID-19 (10/16/20) Basal cell carcinoma, 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) Left, s/p Mohs History of cardiac arrhythmia Has has documented transient atrial fibrillation/flutter with rapid ventricular response with spontaneous conversion to sinus rhythm in 2013 post op, again 2017 during acute illness History of nonmelanoma skin cancer Obesity (BMI 30.0-34.9) TIA (transient ischemic attack) Osteoarthritis involving multiple joints on both sides of body Neck, back & rt knee and rt AC joint Meatal stenosis Anxiety Chronic kidney disease, stage III (moderate) Squamous cell carcinoma of penis Hypertension GERD (gastroesophageal reflux disease) Depression Surgical History (Updated 04/12/23 @ 21:07 by Samara Tadeo MD) Status post right knee replacement 03/23/2022 Dr. Wolfe Rt TKR S/P Mohs surgery for basal cell carcinoma Left arm 10/2021 Back planned 10/2021 History of surgery on upper extremity Left, s/p fracture History of excision of mass (07/2015) Penile lesion, by Dr Encinas. Procedure done: 1. Dorsal relaxing incision to expose penile mass 2. Wide excision of invasive appearing penile lesion consistent grossly with squamous cell carcinoma. Involving the glans penis and incompletely resected. Squamous cell carcinoma History of repair of right rotator cuff (04/2020) Dr Wolfe, Arthroscopic repair right rotator cuff, limited debridement including biceps tenotomy, labral debridement, subacromial bursectomy, and subacromial decompression History of knee surgery (10/2011) Dr Andres. Right knee arthroscopy, chondroplasty patella, medial femoral condyle, lateral femoral condyle and mild debridement of the posterior horn lateral meniscus. History of laparoscopic cholecystectomy Family History (Updated 03/27/21 @ 14:09 by Ashley High LPN) Father, in his 60's Mother, in her 80's Alcoholic Father Stroke Mother Denies family history of Anesthesia complication Bleeding disorder Social History Smoking and tobacco/nicotine status: never used tobacco/nicotine Second hand smoke exposure: No Alcohol intake: never Substance/Drug Use: never Adopted: No Caregiver/support person: Yes Lives independently: Yes Household members: family and other Details: Son, grandson at house Housing: House Marital status: / Highest education level completed: High School Graduate service: No Current occupational status: retired Sexually active: No Do you think of yourself as: Straight/Heterosexual Current gender identity: Male Tri/Judaism: Gnosticism Special tri needs: No Pertinent Exam Findings alert and oriented x 3 Recommendations Surgery/Procedure today Coding Level of Care Code Acute Code for Chg Fwd
[2023-05-20 08:25] VITALS: BP 125/75; PULSE 103; RESP 18; TEMP 36.4; O2SAT 97; BMI 26.9
[2023-05-20] MEDS: sodium chloride 0.9% 1,000 ML 30 ML IV (08:32)
--- NOTE | 2023-05-20 09:21 | P.ANESASSM_ITS ---
Pre-Anesthetic Assessment Height/Weight: Height 1.75 m Weight 82.554 kg Temp Pulse Resp BP Pulse Ox O2 Del Method 97.5 F L 103 H 18 125/75 97 Room Air 05/20/23 08:25 05/20/23 08:25 05/20/23 08:25 05/20/23 08:25 05/20/23 08:25 05/20/23 08:25 Preop Diagnosis: need for screening colonoscopy Operation Date: 05/20/23 09:05 Proposed Procedures p 43902 colon, G0105 screen colon H risk Z12.11(Not Applicable) - Viet Mcclure MD Familial anesthetic complications: None Was Beta Tomi taken within 24 hours: N/A Was Clonidine taken within 24 hours: N/A Last intake: Intake Last Liquid Date 05/19/23 Last Liquid Time 22:00 Last Solid Date 05/18/23 Last Solid Time 18:00 Social No alcohol and No tobacco Exam alert, oriented x 3, clear to auscultation bilaterally and regular rate & rhythm Airway Submandibular: within normal limits Cervical ROM: within normal limits Mallampati: Class III Dentition: false History/ROS No significant history except as noted and No significant complaints Pulmonary Sleep Apnea CV/HEM Arrythmia, Coronary Artery Disease and Hypertension Conclusion: 1. Normal EKG response to Lexiscan infusion 2. No Lexiscan induced chest pain or cardiac arrhythmia. 3. Normal blood pressure and heart rate response. 4. Sestamibi/sestamibi perfusion scan pending; see separate report. Chronic Renal Insufficiency CKD stage 3 BPH Hepatic None reported GI Gastroesophageal Reflux Disease (Controlled with meds) Metabolic Hyperlipidemia [facility] Lower Back Pain and Osteoarthritis/DJD Neuropsych Anxiety, Deficit (Memory deficit) and Transient Ischemic Attack Anesthetic Plan ASA status: 3 Anesthesia: Anesthesia Evaluation, General and MAC Risk of > 500 ml blood loss (7ml/kg in children): No Medications/Allergies Home Medications Medication Instructions Recorded Confirmed Last Taken Type ascorbic acid (vitamin C) 1,000 mg 1,000 mg PO BID 03/27/21 05/20/23 05/19/23 History tablet fluvoxamine 50 mg tablet 50 mg PO BID 05/19/21 05/20/23 05/19/23 History hydrocodone 10 mg-acetaminophen 1 - 2 tab PO QID PRN Pain 05/19/21 05/20/2324 History 325 mg tablet AFO to the Left #1 ea 08/05/21 05/20/23 05/19/23 Rx aspirin 81 mg tablet,delayed 81 mg PO DAILY 12/01/21 05/20/23 05/19/23 History release mvprvysoyodz-zax-xzexl acid-vit 1 tab PO DAILY 12/01/21 05/20/23 05/19/23 History K-lycop 400 mcg-20 mcg-370 mcg tablet (Men's 50 Plus Multivitamin) methenamine hippurate 1 gram tablet 1 g PO BID #60 tabs 09/26/22 05/20/23 05/19/23 Rx Non-articular Polymer AFO to left #1 ea 11/12/22 05/20/23 05/19/23 Rx amlodipine 10 mg tablet 10 mg PO DAILY blood pressure #90 11/26/22 05/20/23 05/19/23 Rx tabs omeprazole 20 mg capsule,delayed 20 mg PO BID acid reflux #60 caps 01/29/23 05/20/23 05/19/23 Rx release tamsulosin 0.4 mg capsule 0.8 mg (2 x 0.4 mg) PO .q hs 01/29/23 05/20/23 05/19/23 Rx urinary retention #180 caps nitrofurantoin macrocrystal 100 mg 100 mg PO bid 5 days #10 caps 02/11/23 05/20/23 05/19/23 Rx capsule tizanidine 4 mg tablet 4 mg PO BEDTIME PRN MUSCLE CRAMPS 04/30/23 05/20/23 05/19/23 Rx #30 tabs alprazolam 1 mg tablet (Xanax) 1 mg PO BID PRN anxiety 05/18/23 05/20/23 05/19/23 History Allergies Allergy/AdvReac Type Severity Reaction Status Date / Time Penicillins Allergy Intermediate rash Verified 05/20/23 08:27 sulfamethoxazole Allergy Hallucianti Verified 05/20/23 08:27 [From Bactrim] ons trimethoprim [From Bactrim] Allergy Hallucianti Verified 05/20/23 08:27 ons Current Medications Generic Name Dose Route Start Last Admin Trade Name Freq PRN Reason Stop Dose Admin Sodium Chloride 1,000 mls @ 30 mls/hr 05/20/23 08:15 05/20/23 08:32 Sodium Chloride 0.9% IV 30 mls/hr .Q24H ILIANA Administration PFSH Anesthesia Medical History (Updated 04/30/23 @ 18:21 by Charlie Jay MD) Acute myofascial strain of lumbosacral region BPH w urinary obs/LUTS Bradycardia with 41-50 beats per minute Urethral stricture Recurrent UTI Sacroiliac inflammation Personal history of osteoporosis Allergic rhinitis due to allergen Hyperparathyroidism (04/08/20) COVID-19 (10/16/20) Basal cell carcinoma, 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) Left, s/p Mohs History of cardiac arrhythmia Has has documented transient atrial fibrillation/flutter with rapid ventricular response with spontaneous conversion to sinus rhythm in 2013 post op, again 2017 during acute illness History of nonmelanoma skin cancer Obesity (BMI 30.0-34.9) TIA (transient ischemic attack) Osteoarthritis involving multiple joints on both sides of body Neck, back & rt knee and rt AC joint Meatal stenosis Anxiety Chronic kidney disease, stage III (moderate) Squamous cell carcinoma of penis Hypertension GERD (gastroesophageal reflux disease) Depression Surgical History Status post right knee replacement 03/23/2022 Dr. Wolfe Rt TKR S/P Mohs surgery for basal cell carcinoma Left arm 10/2021 Back planned 10/2021 History of surgery on upper extremity Left, s/p fracture History of excision of mass (07/2015) Penile lesion, by Dr Encinas. Procedure done: 1. Dorsal relaxing incision to expose penile mass 2. Wide excision of invasive appearing penile lesion consistent grossly with squamous cell carcinoma. Involving the glans penis and incompletely resected. Squamous cell carcinoma History of repair of right rotator cuff (04/2020) Dr Wolfe, Arthroscopic repair right rotator cuff, limited debridement including biceps tenotomy, labral debridement, subacromial bursectomy, and subacromial decompression History of knee surgery (10/2011) Dr Andres. Right knee arthroscopy, chondroplasty patella, medial femoral condyle, lateral femoral condyle and mild debridement of the posterior horn lateral meniscus. History of laparoscopic cholecystectomy Family History Mother , in her 80's Stroke Father , in his 60's Alcoholic Denies family history of Anesthesia complication Bleeding disorder Social History Smoking and tobacco/nicotine status: never used tobacco/nicotine Second hand smoke exposure: No Alcohol intake: never Substance/Drug Use: never Adopted: No Caregiver/support person: Yes Lives independently: Yes Household members: family and other Details: Son, grandson at house Housing: House Marital status: / Highest education level completed: High School Graduate service: No Current occupational status: retired Sexually active: No Do you think of yourself as: Straight/Heterosexual Current gender identity: Male Tri/Confucianist: Anglican Special tri needs: No Data Anesthesia Cardiac Studies: Echocardiogram 12/02/21 Sestamibi Stress Test (Cardiology) 03/20
[2023-05-20 10:28] VITALS: BP 95/56; PULSE 71; RESP 18; TEMP 36.4; O2SAT 99
[2023-05-20 10:38] VITALS: BP 95/56; PULSE 68; RESP 18; O2SAT 97
[2023-05-20 10:46] VITALS: BP 114/60; PULSE 62; RESP 18; O2SAT 99
[2023-05-20 10:56] VITALS: BP 114/75; PULSE 69; RESP 18; O2SAT 95
[2023-05-20 11:14] VITALS: BP 124/72; PULSE 66; RESP 18; O2SAT 96
--- NOTE | 2023-05-20 11:20 | ANE.PACU2 ---
Inpatient post-anesthesia follow up: Airway intact: Yes Vital signs: Temperature 97.5 F Pulse Rate 66 Respiratory Rate 18 Blood Pressure 124/72 Pulse Oximetry 96 Oxygen Delivery Me thod Room Air Oxygen Flow Rate Fraction of Inspir ed Oxygen Hydration adequate: Yes Nausea and vomiting: No Pain level: 1 Mental status: Baseline
== END 2023-05-20 11:20 | disposition home or self-care (01) ==
PROVIDERS: PCP Family Medicine Adult Medicine; Visit Provider Surgery
PROC: 0DJD8ZZ Inspection of Lower Intestinal Tract, Via Natural or Artificial Opening Endoscopic (ICD-10-PCS; CPT 45378; principal; 2023-05-20 09:05)
DX: Z12.11 Encounter for screening for malignant neoplasm of colon (principal); D12.2 Benign neoplasm of ascending colon; Z79.82 Long term (current) use of aspirin; N40.1 Benign prostatic hyperplasia with lower urinary tract symptoms; N13.8 Other obstructive and reflux uropathy; Z86.16 Personal history of COVID-19; E66.9 Obesity, unspecified; Z68.26 Body mass index [BMI] 26.0-26.9, adult; Z86.73 Personal history of transient ischemic attack (TIA), and cerebral infarction without residual deficits; I12.9 Hypertensive chronic kidney disease with stage 1 through stage 4 chronic kidney disease, or unspecified chronic kidney disease; N18.30 Chronic kidney disease, stage 3 unspecified; Z85.89 Personal history of malignant neoplasm of other organs and systems; K21.9 Gastro-esophageal reflux disease without esophagitis; F32.A Depression, unspecified; G47.30 Sleep apnea, unspecified; I25.10 Atherosclerotic heart disease of native coronary artery without angina pectoris; N40.0 Benign prostatic hyperplasia without lower urinary tract symptoms; E78.5 Hyperlipidemia, unspecified
CPT/HCPCS: 45380; 45381; 82378; 88305; J2704; J7030

== ENCOUNTER → 2023-05-25 14:32 | Outpatient (BNVA) | payer MEDICARE, MEDICAID, SELFPAY | PROVIDERS: PCP Family Medicine Adult Medicine; Visit Provider Nurse Practitioner Family | DX: L57.0 Actinic keratosis (principal); L81.4 Other melanin hyperpigmentation; L57.8 Other skin changes due to chronic exposure to nonionizing radiation; D49.0 Neoplasm of unspecified behavior of digestive system; Z85.828 Personal history of other malignant neoplasm of skin | CPT/HCPCS: 17000; 99214 ==

== ENCOUNTER 2023-06-01 11:10 | Inpatient (IN) | payer MEDICARE, MEDICAID, SELFPAY ==
[2023-06-01] VITALS (12 sets, daily range): BP systolic 79–143; BP diastolic 46–89; PULSE 43–63; RESP 16–19; TEMP 36.3–37; O2SAT 94–100; BMI 19.9; BMI 27.1
--- NOTE | 2023-06-01 11:24 | XR_ITS ---
WS: [id number] Examination: XR chest 1V portable [id number] Reason for Exam: weakness Date: June 01, 2023 Comparison: January 20, 2023 Findings: The heart is prominent in size. The mediastinum is not widened. There is no evidence of pulmonary edema or large pleural effusion. No dense consolidative changes identified. IMPRESSION: The heart is enlarged. I see no acute lung process.
--- NOTE | 2023-06-01 11:29 | CT_ITS ---
WS: [id number] CT HEAD TECHNIQUE: Noncontrast CT of the head obtained from the skullbase to the vertex. CLINICAL INFORMATION: dizzy COMPARISON: CT head 05/14/2022 DLP: 1088.[address] scans at [facility] use at least one of these dose optimization techniques: automated e xposure control; mA and/or kV adjustment per patient size (includes targeted exams where dose is matc hed to clinical indication); or iterative reconstruction. FINDINGS: No evidence of intracranial hemorrhage or mass effect. Ventricular system and basal cisterns are mai nt. Mild small vessel changes with moderate parenchymal volume loss. No extra-axial fluid collections . No evidence of mass or mass effect. Mild cavernous carotid calcification. Paranasal sinuses and mastoid air cells are well aerated. .Normal visualized soft tissues. IMPRESSION: 1. No evidence of intracranial hemorrhage or mass effect. 2. No acute intracranial findings.
--- NOTE | 2023-06-01 11:31 | ED_ITS ---
HPI - Dizziness 2 General: Chief Complaint: Dizziness Stated Complaint: dizzy, weakness Time Seen by Provider: 06/01/23 11:24 Source: patient and EMS Mode of arrival: EMS Limitations: no limitations History of Present Illness: HPI Narrative: 77-year-old male states that over the la st 2 to 3 days he is felt very lightheaded he is felt very weak he states his blood pressure has been running in the 80s and 90s. States he does take blood pressure medicine but states he has not taken the last 2 days he denies any pain anywhere he denies any vomiting or diarrhea. He denies any fevers he is hypotensive here into the 80s. Associated symptoms: Reports malaise; Denies chest pain, chills, headache(s), nausea or vomiting Review of Systems 2 Const: Reports: fatigue and malaise; Denies: fever(s), chills, body aches or change in appetite ENMT: Denies: throat pain or dental pain Card: Denies: chest pain Resp: Denies: dyspnea GI: Denies: abdominal pain, nausea, vomiting or diarrhea Musc: Denies: neck pain or back pain Skin/Breast: Denies: rash Neuro: Denies: headache(s) PFSH ED 2 PFSH: Medical History Acute myofascial strain of lumbosacral region BPH w urinary obs/LUTS Bradycardia with 41-50 beats per minute Urethral stricture Recurrent UTI Sacroiliac inflammation Personal history of osteoporosis Allergic rhinitis due to allergen Hyperparathyroidism (04/08/20) COVID-19 (10/16/20) Basal cell carcinoma, 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) Left, s/p Mohs History of cardiac arrhythmia Has has documented transient atrial fibrillation/flutter with rapid ventricular response with spontaneous conversion to sinus rhythm in 2013 post op, again 2017 during acute illness History of nonmelanoma skin cancer Obesity (BMI 30.0-34.9) TIA (transient ischemic attack) Osteoarthritis involving multiple joints on both sides of body Neck, back & rt knee and rt AC joint Meatal stenosis Anxiety Chronic kidney disease, stage III (moderate) Squamous cell carcinoma of penis Hypertension GERD (gastroesophageal reflux disease) Depression Surgical History Status post right knee replacement 03/23/2022 Dr. Wolfe Rt TKR S/P Mohs surgery for basal cell carcinoma Left arm 10/2021 Back planned 10/2021 History of surgery on upper extremity Left, s/p fracture History of excision of mass (07/2015) Penile lesion, by Dr Encinas. Procedure done: 1. Dorsal relaxing incision to expose penile mass 2. Wide excision of invasive appearing penile lesion consistent grossly with squamous cell carcinoma. Involving the glans penis and incompletely resected. Squamous cell carcinoma History of repair of right rotator cuff (04/2020) Dr Wolfe, Arthroscopic repair right rotator cuff, limited debridement including biceps tenotomy, labral debridement, subacromial bursectomy, and subacromial decompression History of knee surgery (10/2011) Dr Andres. Right knee arthroscopy, chondroplasty patella, medial femoral condyle, lateral femoral condyle and mild debridement of the posterior horn lateral meniscus. History of laparoscopic cholecystectomy Family History Mother , in her 80's Stroke Father , in his 60's Alcoholic Denies family history of Anesthesia complication Bleeding disorder Social History Smoking and tobacco/nicotine status: never used tobacco/nicotine Second hand smoke exposure: No Alcohol intake: never Substance/Drug Use: never Adopted: No Caregiver/support person: Yes Lives independently: Yes Household members: family and other Details: Son, grandson at house Housing: House Marital status: / Highest education level completed: High School Graduate service: No Current occupational status: retired Sexually active: No Do you think of yourself as: Straight/Heterosexual Current gender identity: Male Tri/Pentecostal: Scientologist Special tri needs: No Physical Exam 2 Const: COMMON NORMALS: patient oriented x3 GENERAL APPEARANCE: ill appearing HENMT: COMMON NORMALS: normocephalic and atraumatic HEAD & SCALP: n ormocephalic and atraumatic Neck/C-Spine: COMMON NORMALS: full ROM and supple Chest: COMMONS NORMALS: normal inspection of the chest and normal palpation of entire chest wall Resp: COMMON NORMALS: normal respiratory effort, No retractions, No use of accessory muscles and clear to auscultation bilaterally AUSCULTATION: clear to auscultation bilaterally Cardio: COMMON NORMALS: regular rate, regular rhythm and No murmurs present (Cardio) RATE: regular rate RHYTHM: regular rhythm GI: COMMON NORMALS: Normal to inspection, nondistended, normoactive bowel sounds present, Soft to palpation, non-tender and no masses PALPATION: Yes Soft to palpation Extremity: COMMON NORMALS: normal to inspection Neuro: COMMON NORMALS: patient oriented x3, moves all extremities and no focal motor deficits Psych: COMMON NORMALS: mental status grossly normal, Normal thought process present and cooperative THOUGHT PROCESS: Normal thought process present Skin: COMMON NORMALS: no rashes or lesions noted and no wounds GENERAL SKIN EXAM: no rashes or lesions noted Course 2 Vital Signs: Vital signs: Vital Signs Temperature 98.4 F 06/01/23 11:17 Pulse Rate 48 L 06/01/23 12:35 Respiratory Rate 16 06/01/23 12:35 Blood Pressure 96/62 06/01/23 12:35 Pulse Oximetry 96 06/01/23 12:35 MDM - Dizziness Medical Decision Making Patient presents with general weakness along with some orthostatic hypotension blood pressure improved after fluids he does have a UTI white count lactate here is normal I spoke to hospitalist will admit at this time Medical Records I reviewed the patient's medical records. Lab Data I reviewed the patient's lab results. 06/01/23 11:40 06/01/23 11:40 Laboratory Results WBC 4.47 10^3/uL (3.29-11.43) 06/01/23 11:40 RBC 3.91 10^6/uL (3.85-5.65) 06/01/23 11:40 Hgb 12.50 g/dL (11.27-16.99) 06/01/23 11:40 Hct 38.3 % (37-53) 06/01/23 11:40 MCV 98.0 fl (82-101) 06/01/23 11:40 MCH 32.0 pg (27-33) 06/01/23 11:40 MCHC 32.6 g/dL (30-55) 06/01/23 11:40 RDW 13.2 % (12.1-15.1) 06/01/23 11:40 Plt Count 146 10^3/cmm (157-399) L 06/01/23 11:40 MPV 8.6 fL (7.4-10.4) 06/01/23 11:40 Neut % (Auto) 60.1 % 06/01/23 11:40 Lymph % (Auto) 25.7 % 06/01/23 11:40 [place] % (Auto) 11.6 % 06/01/23 11:40 Eos % (Auto) 2.2 % 06/01/23 11:40 Baso % (Auto) 0.4 % 06/01/23 11:40 Neut # (Auto) 2.68 10^3/uL (1.8-7.7) 06/01/23 11:40 Lymph # (Auto) 1.2 10^3/uL (0.8-4.8) 06/01/23 11:40 [place] # (Auto) 0.5 10^3/uL (0.2-0.9) 06/01/23 11:40 Eos # (Auto) 0.1 10^3/uL (0.0-0.8) 06/01/23 11:40 Baso # (Auto) 0.0 10^3/uL (0.0-0.1) 06/01/23 11:40 Nucleated RBC % (auto) 0 % 06/01/23 11:40 Nucleated RBCs # 0.0 /100WBC 06/01/23 11:40 Sodium 137 mmol/L (136-145) 06/01/23 11:40 Potassium 4.5 mmol/L (3.5-5.1) 06/01/23 11:40 Chloride 106 mmol/L (98-107) 06/01/23 11:40 Carbon Dioxide 22 mmol/L (22-29) 06/01/23 11:40 Anion Gap 13.5 (5-19) 06/01/23 11:40 BUN 33 mg/dL (8-23) H 06/01/23 11:40 Creatinine 1.7 mg/dL (0.7-1.2) H 06/01/23 11:40 GFR Calculation Not Reportable 06/01/23 11:40 Glucose 102 mg/dL (65-115) 06/01/23 11:40 Calculated Osmolality 291 mOsm/kg (285-295) 06/01/23 11:40 Lactic Acid 1.7 mmol/L (0.5-2.2) 06/01/23 11:40 Calcium 10.2 mg/dL (8.5-10.5) 06/01/23 11:40 Total Bilirubin 0.6 mg/dL (0.15-1.2) 06/01/23 11:40 AST 15 U/L (0-40) 06/01/23 11:40 ALT 10 U/L (0-41) 06/01/23 11:40 Alkaline Phosphatase 102 U/L (40-130) 06/01/23 11:40 Troponin T Baseline 22 ng/L (0-15) H 06/01/23 11:40 Total Protein 5.8 g/dL (6.6-8.7) L 06/01/23 11:40 Albumin 3.7 g/dL (3.5-5.2) 06/01/23 11:40 Globulin 2.1 g/dL (1.3-4.6) 06/01/23 11:40 TSH 2.98 uIU/mL (0.27-4.20) 06/01/23 11:40 Urine Color Yellow (Yellow) 06/01/23 12:31 Urine Appearance Hazy (CLEAR) A 06/01/23 12:31 Urine pH 5 (5-7) 06/01/23 12:31 Ur Specific [place] 1.015 (1.005-1.030) 06/01/23 12:31 Urine Protein Trace (Negative) 06/01/23 12:31 Urine Glucose (UA) Norm (Normal) 06/01/23 12:31 Urine Ketones Negative (Negative) 06/01/23 12:31 Urine Blood Neg (Negative) 06/01/23 12:31 Urine Nitrate Positive (Negative) H 06/01/23 12:31 Urine Bilirubin Neg (Negative) 06/01/23 12:31 Urine Urobilinogen Norm mg/dL (Negative) 06/01/23 12:31 Ur Leukocyte Esterase 2+ (Negative) H 06/01/23 12:31 Urine RBC 0-4 /hpf (0-2) H 06/01/23 12:31 Urine WBC Too numerous to cnt /hpf (0-5) H 06/01/23 12:31 Ur Squamous Epith Cells 0-4 /hpf (0-5) H 06/01/23 12:31 Amorphous Sediment Not Reportable 06/01/23 12:31 Urine Bacteria 3+ /hpf (NONE) H 06/01/23 12:31 Urine Mucus 1+ /hpf 06/01/23 12:31 All radiology interpretation(s) finalized by discharge EKG Data EKG 1: I personally reviewed and interpreted this EKG as follows: EKG interpretation date: 06/01/23 EKG interpretation time: 11:49 Interpretation: sinus mich hr [address] or t wave abnormalities qrs 84 qtc 386 Discharge Plan Discharge Patient Disposition: Admitted As Inpatient Clinical Impression: Acute cystitis, Orthostatic hypotension Condition: Stable Prescriptions: No Action ascorbic acid (vitamin C) 1,000 mg tablet 1,000 mg PO BID tizanidine 4 mg tablet 4 mg PO BEDTIME PRN (Reason: MUSCLE CRAMPS) Qty: 30 3RF (DME) Non-articular Polymer AFO to left See Rx Instructions .Route .MEDSUPPLY Qty: 1 0RF Rx Instructions: As directed by [facility] methenamine hippurate 1 gram tablet 1 g PO BID Qty: 60 5RF omeprazole 20 mg capsule,delayed release(DR/EC) 20 mg PO BID Qty: 60 5RF nitrofurantoin macrocrystal 100 mg capsule 100 mg PO bid 5 Days Qty: 10 0RF Rx Instructions: must administer with a meal/food (DME) AFO to the Left See Rx Instructions .Route .MEDSUPPLY Qty: 1 0RF Rx Instructions: As directed [facility] amlodipine 10 mg tablet 10 mg PO DAILY Qty: 90 1RF tamsulosin 0.4 mg capsule 0.8 mg PO BEDTIME triamcinolone acetonide 0.1 % cream See Rx Instructions .ROUTE .COMPLEX Rx Instructions: Apply TO tight foreskin TWICE DAILY NEEDED. Do not USE FOR more THAN TWO weeks at a time; every TWO MONTHS or so NEEDED. fluticasone propionate 50 mcg/actuation spray,suspension 2 spray INTRANASAL DAILY metoprolol tartrate 25 mg tablet 25 mg PO DAILY lisinopril 20 mg tablet 20 mg PO DAILY hydrocodone-acetaminophen 10-325 mg tablet 1 - 2 tab PO QID PRN (Reason: Pain) fluvoxamine 50 mg tablet 50 mg PO BID aspirin 81 mg Tablet,Delayed Release (Dr/Ec) 81 mg PO QPM Men's 50 Plus Multivitamin 400-20-370 mcg Tablet 1 tab PO DAILY alprazolam [Xanax] 1 mg tablet 1 mg PO BID PRN (Reason: anxiety) Referrals: Charlie Jay MD [Primary Care Provider] - Coding Level of Care Code ED Project Geophysicist for Cielo Chopra
[2023-06-01 11:48] LABS: Basophils % 0.4 %; Eosinophils # 0.1 10^3/uL (0.0-0.8); Eosinophils % 2.2 %; Hematocrit 38.3 % (37-53); Lymphocytes # 1.2 10^3/uL (0.8-4.8); Lymphocytes % 25.7 %; Mean Corpuscular HGB Conc 32.6 g/dL (30-55); Mean Platelet Volume 8.6 fL (7.4-10.4); Monocytes # 0.5 10^3/uL (0.2-0.9); Monocytes % 11.6 %; Neutrophils # 2.68 10^3/uL (1.8-7.7); Neutrophils % 60.1 %; Nucleated Red Blood Cells % 0 %; Platelet Count 146 10^3/cmm (157-399); Red Blood Count 3.91 10^6/uL (3.85-5.65); Red Cell Distribution Width 13.2 % (12.1-15.1); White Blood Count 4.47 10^3/uL (3.29-11.43)
--- NOTE | 2023-06-01 11:49 | ECG_ITS ---
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 Measurements Intervals [place] Rate: 53 P: 45 WI: 149 QRS: 7 QRSD: 84 T: 44 QT: 404 QTc: 379 Interpretive Statements SINUS BRADYCARDIA Compared to ECG 01/20/2023 03:07:10 Sinus rhythm no longer present ST (T wave) deviation no longer present Possible ischemia no longer present Electronically Signed On 06-01-2023 14:12:08 CDT by Toro Fonseca M.D. [email or web address]
[2023-06-01] MEDS: sodium chloride 0.9% 1,000 ML 999 ML IV ×2 (11:52→12:34)
[2023-06-01 12:07] LABS: Lactic Sepsis W/Reflex 1.7 mmol/L (0.5-2.2)
[2023-06-01 12:18] LABS: Alanine Aminotransferase 10 U/L (0-41); Albumin Level 3.7 g/dL (3.5-5.2); Alkaline Phosphatase 102 U/L (40-130); Anion Gap 13.5 (5-19); Aspartate Amino Transferase 15 U/L (0-40); Blood Urea Nitrogen 33 mg/dL (8-23); Calcium 10.2 mg/dL (8.5-10.5); Carbon Dioxide 22 mmol/L (22-29); Chloride 106 mmol/L (98-107); Globulin 2.1 g/dL (1.3-4.6); Glucose 102 mg/dL (65-115); Osmolality Calculated 291 mOsm/kg (285-295); Potassium 4.5 mmol/L (3.5-5.1); Sodium 137 mmol/L (136-145); Thyroid Stimulating Hormone 2.98 uIU/mL (0.27-4.20); Total Bilirubin 0.6 mg/dL (0.15-1.2); Total Protein 5.8 g/dL (6.6-8.7)
[2023-06-01 12:19] LABS: Creatinine Clr Calc Pharmacy 33.3477
[2023-06-01 12:39] LABS: Troponin(5th) Baseline 22 ng/L (0-15)
[2023-06-01 12:51] LABS: Add Urine Microscopic? YES; Bilirubin Urine Neg (Negative); Blood Urine Neg (Negative); Glucose Urine UA Norm (Normal); Ketones Urine Negative (Negative); Leukocyte Esterase Urine 2+ (Negative); Nitrate Urine Positive (Negative); Protein Urine Trace (Negative); Specific Gravity, Urine 1.015 (1.005-1.030); Urine Appearance Hazy (CLEAR); Urine Color Yellow (Yellow); Urobilinogen Urine Norm (Negative); pH Urine 5 (5-7)
[2023-06-01 12:54] LABS: RBC Urine 0-4 /hpf (0-2)
[2023-06-01 12:55] LABS: Add Urine Culture? Yes; Bacteria Urine 3+ /hpf; Mucus Urine 1+ /hpf; Squamous Epithelial Cell Urine 0-4 /hpf (0-5); WBC Urine TOO NUMEROUS TO CNT /hpf (0-5)
[2023-06-01] MEDS: cefTRIAXone 1,000 MG in sodium chloride 0.9% (plus) 50 ML 100 MG IV (13:15)
[2023-06-01 14:06] LABS: Troponin 5 2HR 20.05 ng/L (0-15)
[2023-06-01 14:07] LABS: Troponin 5 2HR Delta -1.95 ABS# (0-10)
--- NOTE | 2023-06-01 14:20 | P.HP_ITS ---
Providers/Chief Complaint 2 Admitting Physician: Ashleigh Montoya MD Primary Care Provider: Charlie Jay MD Chief Complaint: dizzy, weakness History of Present Illness Mike Silva is a 77 year old male with past medical history of BPH, hypertension, recurrent UTI, mass in ascending colon recently biopsied on 05/22, bradycardia, CKD stage III, TIA, memory deficit presents to the ER as per direction from his PCPs office. As per the patient he has been having low blood pressures with episode of dizziness and almost passing out for last 5 to 6 months. He has been trying to titrate his antihypertensives by himself because of low blood pressures. He states he has contacted his PCPs office multiple times for the same reason but nobody has been able to help him. Patient does give history of BPH and urinary retention for which he self catheterizes every third day. Complains of occasional burning in urination. Denies any nausea, vomiting, headache or fever. Review of Systems 2 General: Reports: 10 or more systems reviewed and unremarkable except in HPI and below Const: Denies: fever(s), chills, body aches, change in appetite, change in weight, malaise, night sweats, diaphoresis, change in sleep pattern, daytime sleepiness or snoring Eyes: Denies: change in vision, blurry vision, photophobia, eye discomfort or eye discharge ENMT: Denies: throat pain, enlarged tonsils, hoarseness, mouth pain, oral sores, dry mouth, tinnitus, nasal congestion or post nasal drip Card: Denies: chest pain, palpitations, irregular heart rhythm, edema, swelling of feet/ankles, lightheadedness, syncope, pre-syncope, dyspnea on exertion, orthopnea, leg pain with exertion or acrocyanosis Resp: Denies: dyspnea, productive cough, non-productive cough, wheezing, stridor, pain on inspiration, change in phlegm color, hemoptysis or chest congestion GI: Denies: abdominal pain, nausea, vomiting, hematemesis, coffee ground emesis, dysphagia, heartburn, diarrhea, constipation, bloating, GI cramping, change in bowel habits, pain on defecation, hematochezia or melena : Denies: flank pain, difficulty urinating, dysuria, urinary frequency, urinary urgency, urinary hesitancy, urinary dribbling, difficulty starting urination, change in urine stream, nocturia or hematuria Musc: Denies: neck pain, back pain, extremity pain, joint pain, joint swelling, joint redness, joint stiffness or limited range of motion Neuro: Denies: headache(s), numbness in extremities, weakness in extremities, sensory changes, lack of coordination, difficulty walking, frequent falls, dizziness, vertigo, confusion, Slurred speech present, difficulty communicating thoughts or seizure-like activity Psych: Denies: anxiety, depression, mood swings, panic attacks, hopelessness or irritability Endo: Denies: polyuria, polydipsia, tired all the time, cold intolerance, excessive sweating, flushing or heat intolerance Cliff/Lymph: Denies: easy bruising or easy bleeding All/Imm: Denies: tongue swelling, facial swelling or acute wheezing Medications/Allergies Home Medications Medication Instructions Recorded Confirmed Last Taken Type ascorbic acid (vitamin C) 1,000 mg 1,000 mg PO BID 03/27/21 06/01/23 06/01/23 History tablet fluvoxamine 50 mg tablet 50 mg PO BID 05/19/21 06/01/23 06/01/23 History hydrocodone 10 mg-acetaminophen 1 - 2 tab PO QID PRN Pain 05/19/21 06/01/23 06/01/23 History 325 mg tablet AFO to the Left #1 ea 08/05/21 06/01/23 05/19/23 Rx aspirin 81 mg tablet,delayed 81 mg PO QPM 12/01/21 06/01/23 05/31/23 History release ikixnsgfxjey-koi-xqzov acid-vit 1 tab PO DAILY 12/01/21 06/01/23 06/01/23 History K-lycop 400 mcg-20 mcg-370 mcg tablet (Men's 50 Plus Multivitamin) methenamine hippurate 1 gram tablet 1 g PO BID #60 tabs 09/26/22 06/01/23 06/01/23 Rx Non-articular Polymer AFO to left #1 ea 11/12/22 06/01/23 05/19/23 Rx omeprazole 20 mg capsule,delayed 20 mg PO BID acid reflux #60 caps 01/29/23 06/01/23 06/01/23 Rx release nitrofurantoin macrocrystal 100 mg 100 mg PO bid 5 days #10 caps 12/06/01/23 05/19/23 Rx capsule tizanidine 4 mg tablet 4 mg PO BEDTIME PRN MUSCLE CRAMPS 04/30/23 06/01/23 05/19/23 Rx #30 tabs alprazolam 1 mg tablet (Xanax) 1 mg PO BID PRN anxiety 05/18/23 06/01/23 06/01/23 History amlodipine 10 mg tablet 10 mg PO DAILY blood pressure #90 05/26/23 06/01/23 06/01/23 Rx tabs fluticasone propionate 50 2 spray intranasal DAILY 06/01/23 06/01/23 05/31/23 History mcg/actuation nasal spray,suspension lisinopril 20 mg tablet 20 mg PO DAILY 06/01/23 06/01/23 Unknown History metoprolol tartrate 25 mg tablet 25 mg PO DAILY 06/01/23 06/01/23 06/01/23 History tamsulosin 0.4 mg capsule 0.8 mg PO BEDTIME urinary retention 06/01/23 06/01/23 05/31/23 History triamcinolone acetonide 0.1 % See Rx Instructions .Route .COMPLEX 06/01/23 06/01/23 Unknown History topical cream Allergies Allergy/AdvReac Type Severity Reaction Status Date / Time Penicillins Allergy Intermediate rash Verified 05/20/23 08:27 sulfamethoxazole Allergy Hallucianti Verified 05/20/23 08:27 [From Bactrim] ons trimethoprim [From Bactrim] Allergy Hallucianti Verified 05/20/23 08:27 ons PFSH Acute 2 PFSH: Medical History (Updated 06/01/23 @ 14:25 by Hipolito Jarrell MD) Bradycardia with 41-50 beats per minute Acute myofascial strain of lumbosacral region BPH w urinary obs/LUTS Urethral stricture Recurrent UTI Sacroiliac inflammation Personal history of osteoporosis Allergic rhinitis due to allergen Hyperparathyroidism (04/08/20) COVID-19 (10/16/20) Basal cell carcinoma, 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) Left, s/p Mohs History of cardiac arrhythmia Has has documented transient atrial fibrillation/flutter with rapid ventricular response with spontaneous conversion to sinus rhythm in 2013 post op, again 2017 during acute illness History of nonmelanoma skin cancer Obesity (BMI 30.0-34.9) TIA (transient ischemic attack) Osteoarthritis involving multiple joints on both sides of body Neck, back & rt knee and rt AC joint Meatal stenosis Anxiety Chronic kidney disease, stage III (moderate) Squamous cell carcinoma of penis Hypertension GERD (gastroesophageal reflux disease) Depression Surgical History Status post right knee replacement 03/23/2022 Dr. Wolfe Rt TKR S/P Mohs surgery for basal cell carcinoma Left arm 10/2021 Back planned 10/2021 History of surgery on upper extremity Left, s/p fracture History of excision of mass (07/2015) Penile lesion, by Dr Encinas. Procedure done: 1. Dorsal relaxing incision to expose penile mass 2. Wide excision of invasive appearing penile lesion consistent grossly with squamous cell carcinoma. Involving the glans penis and incompletely resected. Squamous cell carcinoma History of repair of right rotator cuff (04/2020) Dr Wolfe, Arthroscopic repair right rotator cuff, limited debridement including biceps tenotomy, labral debridement, subacromial bursectomy, and subacromial decompression History of knee surgery (10/2011) Dr Andres. Right knee arthroscopy, chondroplasty patella, medial femoral condyle, lateral femoral condyle and mild debridement of the posterior horn lateral meniscus. History of laparoscopic cholecystectomy Family History Mother , in her 80's Stroke Father , in his 60's Alcoholic Denies family history of Anesthesia complication Bleeding disorder Social History Smoking and tobacco/nicotine status: never used tobacco/nicotine Second hand smoke exposure: No Alcohol intake: never Substance/Drug Use: never Adopted: No Caregiver/support person: Yes Lives independently: Yes Household members: family and other Details: Son, grandson at house Housing: House Marital status: / Highest education level completed: High School Graduate service: No Current occupational status: retired Sexually active: No Do you think of yourself as: Straight/Heterosexual Current gender identity: Male Tri/Catholic: Yarsani Special tri needs: No Vitals/I&O/Wt Last Vital Signs Temp 98.4 F 06/01/23 11:17 Pulse 43 L 06/01/23 14:08 Resp 17 06/01/23 14:08 BP 120/71 06/01/23 14:08 Pulse Ox 99 06/01/23 14:08 05/31/23 06/01/23 06/01/23 22:59 06:59 14:59 Intake Total 2049 Balance 2049 Weight last 48 hrs Weight 61.235 kg Physical Exam 2 Narrative: General: No acute distress, AO x3 HEENT: PERRLA, pupils bilaterally equal and reactive Chest: Normal vesicular breath sounds, no added sounds, equal good air entry bilaterally CVS: S1-S2 regular, no murmurs, bradycardia, no gallops, no rubs Abdomen: Soft, nontender, no organomegaly, bowel sounds present Neuro: No focal deficits, no facial deformity, AO x3, power 5/5 in all limbs Data 06/01/23 11:40 06/01/23 11:40 A&P Assessment and plan (1) UTI (urinary tract infection): History of recurrent UTIs. Complicated as patient does self-catheterization at home. Review of culture history shows UTI from Enterobacter, E. coli, Citrobacter. Appreciate sensitivities. Resistant to ceftriaxone. Switch to IV cefepime 1 g every 12 hourly as per creatinine clearance. Check blood culture. Follow-up urine culture. (2) Hypotension: Present on admission. Required fluid bolus. Hold off on antihypertensive. Goal blood pressure less than 140/90 mmHg with mean over 65. Normal saline at 75 cc/h. Fall precautions. (3) Orthostatic hypotension: Check orthostatics every shift. Treatment as above. (4) Bradycardia with 41-50 beats per minute: With atrial fibrillation. 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 For now we will hold off on beta-kei. If patient persistently has bradycardia he might be better off beta-blockers unless he has tachycardia off the medication. Cardiac stress test from 2022 not concerning for acute ischemia. Last echocardiogram from 2021 showed a normal EF with mild LVH without regional wall motion abnormality. (5) Chronic kidney disease, stage III (moderate): Baseline creatinine more recently 1.8-2. Check renal ultrasound to rule out obstructive nephropathy as patient does have history of meatal stenosis and does self catheterize at home. Bladder scan and straight cath every shift. Monitor BMP daily. Medical reconciliation done for nephrotoxic drugs. (6) Intermittent self-catheterization of bladder: Continue with home dose of Flomax. (7) Hypertension: Goal blood pressure less than 140/90 mmHg with mean over 65. Patient gives history of hypertension when he is off antihypertensives but presented to the ER being hypotensive, bradycardic. Also gives history of low blood pressures at home while being on antihypertensive. For now holding off on antihypertensives as above. IV hydralazine 10 mg every 4 hours as needed for systolic blood pressure of more than 170 mmHg. Will restart antihypertensives as per blood pressure within next 24 hours. Qualifiers: Hypertension type: primary hypertension Qualified Code(s): I10 - Essential (primary) hypertension (8) Atrial fibrillation: (9) Mass of colon: Recently diagnosed on colonoscopy done in 04/2023. 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 Patient should follow-up with surgery and PCP as an outpatient for close follow- up versus complete excision. Plan Check A1c, lipid panel, vitamin B12, folate level, iron panel. Appreciate TSH. Full code Cardiac diet Lovenox for DVT prophylaxis Protonix for PUD prophylaxis Discharge plan: Patient lives by himself. Does take care of his grandchildren occasionally. Patient definitely has memory deficits to which she also agrees. He would benefit from home health for medication and nursing. Attestations 2 Medical Necessity Statement*: Admission for more than 2 midnights for management of UTI leading to hypotension, significant bradycardia Diagnoses UTI (urinary tract infection) N39.0 Hypotension I95.9 Orthostatic hypotension I95.1 Bradycardia with 41-50 beats per minute R00.1 Stage 3a chronic kidney disease N18.30 Intermittent self-catheterization of bladder Z78.9 Primary hypertension I10 Hypertension type: primary hypertension Atrial fibrillation I48.91 Mass of colon K63.89
--- NOTE | 2023-06-01 14:31 | US_ITS ---
WS: [id number] ULTRASOUND RENAL TECHNIQUE: Ultrasound examination of both kidneys. CLINICAL INFORMATION: obs nephropathy, kimberley on ckd FINDINGS: RIGHT Simple RIGHT renal cyst measuring 2.4 x 2.2 x 1.7 cm. LEFT Right kidney is normal in size and appearance. Echogenicity: Normal. Cortical thickness: 1.2 cm; Normal. Hydronephrosis: None. Perinephric fluid: None. Right kidney measures: 11.0 cm x 4.8 cm x 6.6 cm. LEFT: Left kidney is normal in size and appearance. Echogenicity: Normal. Cortical thickness: 1.1 cm; Normal. Hydronephrosis: None. Perinephric fluid: None. Left kidney measures: 10.0 cm x 5.8 cm x 5.6 cm. Normal visualized aorta. Enlarged prostate measuring 4.4 x 3.8 x 3.2 cm. Normal bladder. IMPRESSION: 1. No hydronephrosis in either kidney. 2. Simple RIGHT renal cyst measuring 2.4 x 2.2 x 1.7 cm. LEFT 3. Tiny nonobstructing LEFT renal parenchymal calculus 4. Enlarged prostate. Recommend correlation PSA.
[2023-06-01 15:03] LABS: Amphetamines Screen Urine Negative (Negative); Barbiturates Screen Urine Negative (Negative); Benzodiazepines Screen Urine Positive (Negative); Cocaine Screen Urine Negative (Negative); Opiate Screen Urine Positive (Negative); PCP Screen Urine Negative (Negative); THC Screen Urine Negative (Negative)
[2023-06-01 15:05] LABS: Potassium, Radom Urine 49 mmol/L; Urine Random Chloride 28 mmol/L; Urine Random Sodium 43 mmol/L
[2023-06-01 15:12] LABS: Iron 34 ug/dL (59-158); Percent Saturation 16.5 % (20-50); Total Iron Binding Capacity 206 mcg/dl; Unsaturated Iron Binding 172 ug/dL (112-347)
[2023-06-01 15:27] LABS: Procalcitonin 0.22 ng/mL (0-0.5); Vitamin B12 292 pg/mL (232-1245)
[2023-06-01] MEDS: cefepime 1,000 MG in sodium chloride 0.9% (plus) 50 ML 100 MG IV (15:32)
[2023-06-01] MEDS: sodium chloride 0.9% 1,000 ML 75 ML IV (15:32)
[2023-06-01] MEDS: enoxaparin 40 mg/0.4 mL Syringe SUBCUT (15:32)
[2023-06-01] MEDS: magnesium hydroxide 30 mL UDC PO (15:33)
--- NOTE | 2023-06-01 17:50 | ECG_ITS ---
[facility] Test Date: 2023-06-01 Pat Name: Mike Silva Department: Room: 278 Gender: Male Contact Center Rep: : 1945 Requested By: Fe Vázquez Order Number: [id number] Cheko MD: Toro Fonseca M.D. Measurements Intervals [place] Rate: 57 P: 57 NC: 144 QRS: 18 QRSD: 89 T: 57 QT: 409 QTc: 400 Interpretive Statements SINUS BRADYCARDIA WITH SINUS ARRHYTHMIA Compared to ECG 06/01/2023 11:49:55 No significant changes Electronically Signed On 06-02-2023 9:18:22 CDT by Toro Fonseca M.D. [email or web address] Mediagulf coast veterans health care systemAmerican Gene Technologies Internationalselect medical specialty hospital - [id number]
[2023-06-01] MEDS: aspirin 81 mg EC Tablet PO (18:11)
[2023-06-01] MEDS: tamsulosin 0.4 mg Capsule 0.400000000000000022 MG PO (20:31)
[2023-06-02] VITALS (10 sets, daily range): BP systolic 114–159; BP diastolic 52–81; PULSE 55–95; RESP 16–20; TEMP 36.3–37; O2SAT 95–98; BMI 27.6
[2023-06-02] MEDS: cefepime 1,000 MG in sodium chloride 0.9% (plus) 50 ML 100 MG IV ×2 (01:49→14:30)
[2023-06-02] MEDS: sodium chloride 0.9% 1,000 ML 75 ML IV ×2 (03:48→17:26)
[2023-06-02 04:55] LABS: Basophils % 0.4 %; Eosinophils # 0.1 10^3/uL (0.0-0.8); Eosinophils % 2.9 %; Hematocrit 37.4 % (37-53); Lymphocytes % 21.3 %; Mean Corpuscular HGB Conc 33.2 g/dL (30-55); Mean Corpuscular Volume 96.6 fl (82-101); Mean Platelet Volume 8.3 fL (7.4-10.4); Monocytes # 0.5 10^3/uL (0.2-0.9); Monocytes % 10.7 %; Neutrophils % 64.5 %; Nucleated Red Blood Cells % 0 %; Platelet Count 112 10^3/cmm (157-399); Red Blood Count 3.87 10^6/uL (3.85-5.65)
[2023-06-02 05:11] LABS: Estmated Average Glucose 103; Hemoglobin A1C 5.2 % (4.0-6.0)
[2023-06-02 05:13] LABS: Alanine Aminotransferase 10 U/L (0-41); Albumin Level 3.2 g/dL (3.5-5.2); Alkaline Phosphatase 92 U/L (40-130); Anion Gap 10.4 (5-19); Aspartate Amino Transferase 12 U/L (0-40); Blood Urea Nitrogen 24 mg/dL (8-23); Calcium 10.1 mg/dL (8.5-10.5); Carbon Dioxide 23 mmol/L (22-29); Chloride 113 mmol/L (98-107); Creatinine Clr Calc Pharmacy 49.4246; Globulin 2.3 g/dL (1.3-4.6); Glucose 104 mg/dL (65-115); Magnesium 1.5 mg/dL (1.7-2.3); Osmolality Calculated 298 mOsm/kg (285-295); Potassium 4.4 mmol/L (3.5-5.1); Sodium 142 mmol/L (136-145); Total Bilirubin 0.5 mg/dL (0.15-1.2); Total Protein 5.5 g/dL (6.6-8.7)
[2023-06-02 05:16] LABS: Chol HDL Ratio 3.61 mg/dL (1.0-5.00); Cholesterol 130 mg/dL (0-200); HDL Cholesterol 36 mg/dL (60-100); LDL Cholesterol Calculated 74 mg/dL (50-129); LDL HDL Ratio 2.06 RATIO (0.00-3.22); Triglycerides 98 mg/dL (0-150)
[2023-06-02 05:34] LABS: Folate Level 17.2 ng/mL (4.5-32.2)
[2023-06-02] MEDS: fluticasone nasal spray 16gm Btl 2 SPRAY INTRANASAL (08:45)
[2023-06-02] MEDS: pantoprazole DR 40 mg Tablet PO (08:45)
[2023-06-02] MEDS: magnesium hydroxide 30 mL UDC PO (08:45)
[2023-06-02] MEDS: magnesium sulfate premix 1 GM/100 ML PIGGYBACK IV (09:36)
[2023-06-02] MEDS: acetaminophen 325 mg Tablet 650 MG PO (11:11)
--- NOTE | 2023-06-02 11:25 | P.PN_ITS ---
Subjective 2 Subjective: No acute events overnight. Patient states dizziness has resolved. He is able to ambulate from bed to chair and to the bathroom. Denies any nausea, vomiting. Heart rate better on telemonitoring. Bradycardia seems to have resolved. Able to self catheterize overnight. Bladder scanning shows minimal urine postvoiding. Vitals/I&O/Wt Last Vital Signs Temp 97.3 F L 06/02/23 07:44 Pulse 62 06/02/23 08:00 Resp 16 06/02/23 07:44 BP 142/69 06/02/23 08:00 Pulse Ox 97 06/02/23 07:44 O2 Del Method Room Air 06/02/23 07:44 06/01/23 06/02/23 06/02/23 22:59 06:59 14:59 Intake Total 410 / 2460 970 / 3430 460 / 460 Output Total 2049 / 2049 700 / 2750 400 / 400 Balance -1640 / 410 270 / 680 60 / 60 Weight last 48 hrs Weight 83.546 kg Weight 83.461 kg Weight 61.235 kg Physical Exam 2 Narrative: General: No acute distress, AO x3 HEENT: PERRLA, pupils bilaterally equal and reactive Chest: Normal vesicular breath sounds, no added sounds, equal good air entry bilaterally CVS: S1-S2 regular, no murmurs, bradycardia, no gallops, no rubs Abdomen: Soft, nontender, no organomegaly, bowel sounds present Neuro: No focal deficits, no facial deformity, AO x3, power 5/5 in all limbs Data 06/02/23 04:45 06/02/23 04:45 Micro: Microbiology 06/01/23 12:31 Urine Culture - Preliminary Urine,Clean Catch Gram Negative Rods 06/01/23 12:31 Bacterial Antigens - Final Urine Kidney 06/01/23 15:30 Blood Culture - Preliminary Blood SPECIMEN COLLECTED 06/01/23 15:25 Blood Culture - Preliminary Blood SPECIMEN COLLECTED A&P Assessment and plan (1) UTI (urinary tract infection): History of recurrent UTIs. Complicated as patient does self-catheterization at home. Review of culture history shows UTI from Enterobacter, E. coli, Citrobacter. Appreciate sensitivities. Resistant to ceftriaxone. Switch to IV cefepime 1 g every 12 hourly as per creatinine clearance. Follow-up blood culture. Urine culture growing gram-negative rods. (2) Hypotension: Seems to be resolving. Blood pressure is better controlled. Continue to hold off on antihypertensives. Goal blood pressure less than 140/90 mmHg with mean over 65. Normal saline at 75 cc/h. Fall precautions. (3) Orthostatic hypotension: Improving to resolved. Check orthostatics every shift. Treatment as above. (4) Bradycardia with 41-50 beats per minute: With atrial fibrillation. Seems patient takes metoprolol tartrate 25 mg oral daily at home. Most likely in setting of beta-kei at home. Resolving. Continue with case monitor. Continue to hold off on beta-kei. If patient persistently has bradycardia he might be better off beta-blockers unless he has tachycardia off the medication. Cardiac stress test from 2022 not concerning for acute ischemia. Last echocardiogram from 2021 showed a normal EF with mild LVH without regional wall motion abnormality. (5) Chronic kidney disease, stage III (moderate): Baseline creatinine more recently 1.8-2. Appreciate renal ultrasound. No signs for hydronephrosis. Consistent with severe BPH. Repeat bladder scanning postvoid shows minimal postvoid urine. Creatinine improving to 1.3 with IV hydration. Continue with IV hydration for now. Continue with Flomax 0.4 nightly. Bladder scan and straight cath every shift. Monitor BMP daily. Medical reconciliation done for nephrotoxic drugs. (6) Intermittent self-catheterization of bladder: Continue with home dose of Flomax. (7) Hypertension: Goal blood pressure less than 140/90 mmHg with mean over 65. Patient gives history of hypertension when he is off antihypertensives but presented to the ER being hypotensive, bradycardic. Also gives history of low blood pressures at home while being on antihypertensive. Blood pressure is controlled for now. For now holding off on antihypertensives as above. IV hydralazine 10 mg every 4 hours as needed for systolic blood pressure of more than 170 mmHg. Will restart antihypertensives as per blood pressure within next 24 hours. Qualifiers: Hypertension type: primary hypertension Qualified Code(s): I10 - Essential (primary) hypertension (8) Atrial fibrillation: (9) Mass of colon: Recently diagnosed on colonoscopy done in 04/2023. 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 Patient should follow-up with surgery and PCP as an outpatient for close follow- up versus complete excision. Plan Appreciate A1c, lipid panel, vitamin B12, folate level, iron panel. Appreciate TSH. Full code Cardiac diet Lovenox for DVT prophylaxis Protonix for PUD prophylaxis Plan for ambulating in the carballo today while monitoring for orthostatic hypotension, monitor blood pressures so antihypertensives can be restarted and titrated, IV hydration while monitoring renal functions for next 24 hours. Discharge plan: Patient lives by himself. Does take care of his grandchildren occasionally. Patient definitely has memory deficits to which she also agrees. He would benefit from home health for medication and nursing. Attestations 2 Medical Necessity Statement*: Requires further hospitalization for management of symptomatic hypotension and bradycardia most likely in setting of polypharmacy, UTI Diagnoses UTI (urinary tract infection) N39.0 Hypotension I95.9 Orthostatic hypotension I95.1 Bradycardia with 41-50 beats per minute R00.1 Stage 3a chronic kidney disease N18.30 Intermittent self-catheterization of bladder Z78.9 Primary hypertension I10 Hypertension type: primary hypertension Atrial fibrillation I48.91 Mass of colon K63.89
[2023-06-02] MEDS: HYDROcodone-acetaminophen 10-325 mg Tablet 1 TAB PO (13:32)
[2023-06-02] MEDS: enoxaparin 40 mg/0.4 mL Syringe SUBCUT (14:30)
[2023-06-02] MEDS: aspirin 81 mg EC Tablet PO (17:26)
[2023-06-02] MEDS: tamsulosin 0.4 mg Capsule 0.400000000000000022 MG PO (20:14)
[2023-06-03] VITALS: BP 137/66; PULSE 50; RESP 18; TEMP 37; O2SAT 95
[2023-06-03] MEDS: cefepime 1,000 MG in sodium chloride 0.9% (plus) 50 ML 100 MG IV (01:53)
[2023-06-03 04:59] VITALS: BP 153/73; PULSE 59; RESP 16; TEMP 37; O2SAT 96
[2023-06-03 05:26] LABS: Alanine Aminotransferase 11 U/L (0-41); Albumin Level 3.2 g/dL (3.5-5.2); Alkaline Phosphatase 95 U/L (40-130); Anion Gap 12.2 (5-19); Aspartate Amino Transferase 14 U/L (0-40); Blood Urea Nitrogen 16 mg/dL (8-23); Calcium 10.1 mg/dL (8.5-10.5); Carbon Dioxide 22 mmol/L (22-29); Chloride 113 mmol/L (98-107); Creatinine Clr Calc Pharmacy 58.4371; Globulin 2.6 g/dL (1.3-4.6); Glucose 95 mg/dL (65-115); Osmolality Calculated 297 mOsm/kg (285-295); Potassium 4.2 mmol/L (3.5-5.1); Sodium 143 mmol/L (136-145); Total Bilirubin 0.5 mg/dL (0.15-1.2); Total Protein 5.8 g/dL (6.6-8.7)
[2023-06-03 05:28] VITALS: PULSE 52
[2023-06-03] MEDS: sodium chloride 0.9% 1,000 ML 75 ML IV (05:33)
[2023-06-03 06:51] LABS: Basophils % 0.5 %; Eosinophils # 0.1 10^3/uL (0.0-0.8); Eosinophils % 2.2 %; Hematocrit 39.8 % (37-53); Lymphocytes # 1.1 10^3/uL (0.8-4.8); Lymphocytes % 27.4 %; Mean Corpuscular HGB Conc 31.9 g/dL (30-55); Mean Corpuscular Hemoglobin 31.8 pg (27-33); Mean Corpuscular Volume 99.5 fl (82-101); Mean Platelet Volume 8.4 fL (7.4-10.4); Monocytes # 0.4 10^3/uL (0.2-0.9); Monocytes % 8.6 %; Neutrophils # 2.47 10^3/uL (1.8-7.7); Neutrophils % 61.1 %; Nucleated Red Blood Cells % 0 %; Platelet Count 133 10^3/cmm (157-399); Red Cell Distribution Width 12.8 % (12.1-15.1); White Blood Count 4.05 10^3/uL (3.29-11.43)
[2023-06-03 07:22] VITALS: BP 162/81; PULSE 62; RESP 17; TEMP 36.3; O2SAT 99
[2023-06-03] MEDS: pantoprazole DR 40 mg Tablet PO (08:53)
[2023-06-03] MEDS: magnesium hydroxide 30 mL UDC PO (08:53)
[2023-06-03] MEDS: HYDROcodone-acetaminophen 10-325 mg Tablet 1 TAB PO (08:53)
[2023-06-03] MEDS: fluticasone nasal spray 16gm Btl 2 SPRAY INTRANASAL (08:54)
--- NOTE | 2023-06-03 09:56 | P.DS_ITS ---
Discharge Providers Date of Admission: 06/01/23 13:32 Date of Discharge: June 03, 2023 Attending Provider at Admission: Ashleigh Montoya MD Attending Provider at Discharge: Hipolito Jarrell MD Primary Care Provider: Charlie Jay MD Diagnoses at Discharge Discharge Diagnosis (1) UTI (urinary tract infection): Status: Acute (2) Hypotension: Status: Acute (3) Orthostatic hypotension: Status: Acute (4) Bradycardia with 41-50 beats per minute: Status: Acute (5) Chronic kidney disease, stage III (moderate): Status: Chronic (6) Intermittent self-catheterization of bladder: Status: Chronic (7) Hypertension: Status: Chronic Qualifiers: Hypertension type: primary hypertension Qualified Code(s): I10 - Essential (primary) hypertension (8) Atrial fibrillation: Status: Acute (9) Mass of colon: Status: Acute Reason for Visit Reason for Visit: dizzy, weakness Hospital Course Hospital Course Mike Silva is a 77 year old male with past medical history of BPH, hypertension, recurrent UTI, mass in ascending colon recently biopsied on 05/22, bradycardia, CKD stage III, TIA, memory deficit presents to the ER as per direction from his PCPs office. As per the patient he has been having low blood pressures with episode of dizziness and almost passing out for last 5 to 6 months. He has been trying to titrate his antihypertensives by himself because of low blood pressures. He states he has contacted his PCPs office multiple times for the same reason but nobody has been able to help him. Patient does give history of BPH and urinary retention for which he self catheterizes every third day. Complains of occasional burning in urination. Denies any nausea, vomiting, headache or fever. Patient was sent to the hospital further evaluation and management of dizziness/presyncope in setting of bradycardia and hypotension. Started on IV fluids after which his CURRY resolved. His blood pressures during hospitalization had remained stable off antihypertensive. Gradually his bradycardia also resolved as his beta-blockers were withheld on admission. Patient ambulated in the hospital well without having any episodes of dizziness or syncope. He is been discharged hemodynamically stable condition to home with advised to take amlodipine 5 mg oral daily, check his blood pressure daily at home and maintain blood pressure and follow-up with a primary care provider within next 2 weeks for further adjustment of antihypertensives as needed. He is asked to hold off on taking any other antihypertensive for now. He is advised to continue intermittent self-catheterization daily at home as possible rather than every 2 to 3 days. Physical Exam Narrative: General: No acute distress, AO x3 HEENT: PERRLA, pupils bilaterally equal and reactive Chest: Normal vesicular breath sounds, no added sounds, equal good air entry bilaterally CVS: S1-S2 regular, no murmurs, bradycardia, no gallops, no rubs Abdomen: Soft, nontender, no organomegaly, bowel sounds present Neuro: No focal deficits, no facial deformity, AO x3, power 5/5 in all limbs Discharge Data Studies Completed and Pending Completed Studies During Hospitalization Category Date Time Status CT head wo con* [id number] Stat Cat Scan 06/01/23 11:29 Completed XR chest 1V portable [id number] Stat Exams 06/01/23 11:24 Completed US renal BI* [id number] Routine Ultrasound 06/01/23 14:31 Completed Pending at discharge Category Date Time Status Blood Culture Stat Lab 06/01/23 15:30 Results Urine Culture Stat Lab 06/01/23 12:31 Results Laboratory Results WBC 4.05 10^3/uL (3.29-11.43) 06/03/23 06:25 Corrected WBC Cancelled 06/03/23 04:48 RBC 4.00 10^6/uL (3.85-5.65) 06/03/23 06:25 Hgb 12.70 g/dL (11.27-16.99) 06/03/23 06:25 Hct 39.8 % (37-53) 06/03/23 06:25 MCV 99.5 fl (82-101) 06/03/23 06:25 MCH 31.8 pg (27-33) 06/03/23 06:25 MCHC 31.9 g/dL (30-55) 06/03/23 06:25 RDW 12.8 % (12.1-15.1) 06/03/23 06:25 Plt Count 133 10^3/cmm (157-399) L 06/03/23 06:25 MPV 8.4 fL (7.4-10.4) 06/03/23 06:25 Gran % Cancelled 06/03/23 04:48 Neut % (Auto) 61.1 % 06/03/23 06:25 Lymph % (Auto) 27.4 % 06/03/23 06:25 [place] % (Auto) 8.6 % 06/03/23 06:25 Eos % (Auto) 2.2 % 06/03/23 06:25 Baso % (Auto) 0.5 % 06/03/23 06:25 Neut # (Auto) 2.47 10^3/uL (1.8-7.7) 06/03/23 06:25 Lymph # (Auto) 1.1 10^3/uL (0.8-4.8) 06/03/23 06:25 [place] # (Auto) 0.4 10^3/uL (0.2-0.9) 06/03/23 06:25 Eos # (Auto) 0.1 10^3/uL (0.0-0.8) 06/03/23 06:25 Baso # (Auto) 0.0 10^3/uL (0.0-0.1) 06/03/23 06:25 Absolute Gran (auto) Cancelled 06/03/23 04:48 Nucleated RBC % (auto) 0 % 06/03/23 06:25 Nucleated RBCs # 0.0 /100WBC 06/03/23 06:25 Sodium 143 mmol/L (136-145) 06/03/23 04:48 Potassium 4.2 mmol/L (3.5-5.1) 06/03/23 04:48 Chloride 113 mmol/L (98-107) H 06/03/23 04:48 Carbon Dioxide 22 mmol/L (22-29) 06/03/23 04:48 Anion Gap 12.2 (5-19) 06/03/23 04:48 BUN 16 mg/dL (8-23) 06/03/23 04:48 Creatinine 1.1 mg/dL (0.7-1.2) 06/03/23 04:48 GFR Calculation Not Reportable 06/03/23 04:48 Glucose 95 mg/dL (65-115) 06/03/23 04:48 Estimat Average Glucose 103 06/02/23 04:45 Hemoglobin A1c 5.2 % (4.0-6.0) 06/02/23 04:45 Calculated Osmolality 297 mOsm/kg (285-295) H 06/03/23 04:48 Lactic Acid 1.7 mmol/L (0.5-2.2) 06/01/23 11:40 Calcium 10.1 mg/dL (8.5-10.5) 06/03/23 04:48 Phosphorus 3.0 mg/dL (2.5-4.5) 06/02/23 04:45 Magnesium 1.5 mg/dL (1.7-2.3) L 06/02/23 04:45 Iron 34 ug/dL (59-158) L 06/01/23 11:40 TIBC 206 mcg/dl 06/01/23 11:40 % Saturation 16.5 % (20-50) L 06/01/23 11:40 Unsat Iron Binding 172 ug/dL (112-347) 06/01/23 11:40 Total Bilirubin 0.5 mg/dL (0.15-1.2) 06/03/23 04:48 AST 14 U/L (0-40) 06/03/23 04:48 ALT 11 U/L (0-41) 06/03/23 04:48 Alkaline Phosphatase 95 U/L (40-130) 06/03/23 04:48 Troponin T Baseline 22 ng/L (0-15) H 06/01/23 11:40 Troponin T 120 Minute 20.05 ng/L (0-15) H 06/01/23 13:40 Delta Troponin T -1.95 ABS# (0-10) L 06/01/23 13:40 Troponin T Hi Sens 6Hr 17.90 ng/L (0-15) H 06/01/23 18:29 Troponin T Hi Sens 6Hr Delta -4.10 ng/L (0-12) L 06/01/23 18:29 Total Protein 5.8 g/dL (6.6-8.7) L 06/03/23 04:48 Albumin 3.2 g/dL (3.5-5.2) L 06/03/23 04:48 Globulin 2.6 g/dL (1.3-4.6) 06/03/23 04:48 Triglycerides 98 mg/dL (0-150) 06/02/23 04:45 Cholesterol 130 mg/dL (0-200) 06/02/23 04:45 LDL Cholesterol, Calc 74 mg/dL (50-129) 06/02/23 04:45 HDL Cholesterol 36 mg/dL (60-100) L 06/02/23 04:45 LDL/HDL Ratio 2.06 RATIO (0.00-3.22) 06/02/23 04:45 Cholesterol/HDL Ratio 3.61 mg/dL (1.0-5.00) 06/02/23 04:45 Vitamin B12 292 pg/mL (232-1245) 06/01/23 11:40 Folate 17.2 ng/mL (4.5-32.2) 06/02/23 04:45 Procalcitonin 0.22 ng/mL (0-0.5) 06/01/23 11:40 TSH 2.98 uIU/mL (0.27-4.20) 06/01/23 11:40 Urine Color Yellow (Yellow) 06/01/23 12:31 Urine Appearance Hazy (CLEAR) A 06/01/23 12:31 Urine pH 5 (5-7) 06/01/23 12:31 Ur Specific [place] 1.015 (1.005-1.030) 06/01/23 12:31 Urine Protein Trace (Negative) 06/01/23 12:31 Urine Glucose (UA) Norm (Normal) 06/01/23 12:31 Urine Ketones Negative (Negative) 06/01/23 12:31 Urine Blood Neg (Negative) 06/01/23 12:31 Urine Nitrate Positive (Negative) H 06/01/23 12:31 Urine Bilirubin Neg (Negative) 06/01/23 12:31 Urine Urobilinogen Norm mg/dL (Negative) 06/01/23 12:31 Ur Leukocyte Esterase 2+ (Negative) H 06/01/23 12:31 Urine RBC 0-4 /hpf (0-2) H 06/01/23 12:31 Urine WBC Too numerous to cnt /hpf (0-5) H 06/01/23 12:31 Ur Squamous Epith Cells 0-4 /hpf (0-5) H 06/01/23 12:31 Amorphous Sediment Not Reportable 06/01/23 12:31 Urine Bacteria 3+ /hpf (NONE) H 06/01/23 12:31 Urine Mucus 1+ /hpf 06/01/23 12:31 Ur Random Sodium 43 mmol/L 06/01/23 12:31 Ur Random Potassium 49 mmol/L 04/02/24 12:31 Ur Random Chloride 28 mmol/L 06/01/23 12:31 Urine Opiates Screen Positive ng/mL (Negative) H 06/01/23 12:31 Ur Barbiturates Screen Negative ng/mL (Negative) 06/01/23 12:31 Ur Phencyclidine Scrn Negative ng/mL (Negative) 06/01/23 12:31 Ur Amphetamines Screen Negative ng/mL (Negative) 06/01/23 12:31 U Benzodiazepines Scrn Positive ng/mL (Negative) H 06/01/23 12:31 Urine Cocaine Screen Negative ng/mL (Negative) 06/01/23 12:31 U Marijuana (THC) Screen Negative ng/mL (Negative) 06/01/23 12:31 Vitals Last Vital Signs Temp 97.4 F L 06/03/23 07:22 Pulse 62 06/03/23 07:22 Resp 17 06/03/23 07:22 BP 162/81 06/03/23 07:22 Pulse Ox 99 06/03/23 07:22 O2 Del Method Room Air 06/03/23 07:22 Discharge Plan Discharge Patient Disposition: Home Condition: Stable Prescriptions: Continued ascorbic acid (vitamin C) 1,000 mg tablet 1,000 mg PO BID tizanidine 4 mg tablet 4 mg PO BEDTIME PRN (Reason: MUSCLE CRAMPS) Qty: 30 3RF (DME) Non-articular Polymer AFO to left See Rx Instructions .Route .MEDSUPPLY Qty: 1 0RF Rx Instructions: As directed by [facility] methenamine hippurate 1 gram tablet 1 g PO BID Qty: 60 5RF omeprazole 20 mg capsule,delayed release(DR/EC) 20 mg PO BID Qty: 60 5RF (DME) AFO to the Left See Rx Instructions .Route .MEDSUPPLY Qty: 1 0RF Rx Instructions: As directed [facility] tamsulosin 0.4 mg capsule 0.8 mg PO BEDTIME triamcinolone acetonide 0.1 % cream See Rx Instructions .ROUTE .COMPLEX Rx Instructions: Apply TO tight foreskin TWICE DAILY NEEDED. Do not USE FOR more THAN TWO weeks at a time; every TWO MONTHS or so NEEDED. fluticasone propionate 50 mcg/actuation spray,suspension 2 spray INTRANASAL DAILY hydrocodone-acetaminophen 10-325 mg tablet 1 - 2 tab PO QID PRN (Reason: Pain) fluvoxamine 50 mg tablet 50 mg PO BID aspirin 81 mg Tablet,Delayed Release (Dr/Ec) 81 mg PO QPM Men's 50 Plus Multivitamin 400-20-370 mcg Tablet 1 tab PO DAILY alprazolam [Xanax] 1 mg tablet 1 mg PO BID PRN (Reason: anxiety) Changed amlodipine 10 mg tablet 5 mg PO DAILY Qty: 90 1RF Discontinued nitrofurantoin macrocrystal 100 mg capsule 100 mg PO bid 5 Days Qty: 10 0RF Rx Instructions: must administer with a meal/food metoprolol tartrate 25 mg tablet 25 mg PO DAILY lisinopril 20 mg tablet 20 mg PO DAILY Discharge Orders: Discharge Order (Routine); Ordered 06/03/23 Ordered By: Hipolito Jarrell Referrals: Mee Natarajan MD [Referring] - 06/09/23 11:00 am Discharge Diet: Regular and Cardiac Discharge Activity: Resume usual activity and Increase activity as tolerated Patient Instructions: Amlodipine (By mouth), Urinary Tract Infection in Men (DC), Hypotension (DC), Bradycardia (DC), Opioid Safety Activity Restrictions/Additional Instructions: Please check your blood pressures twice daily and maintain a blood pressure diary. Hold off on taking any antihypertensive other than amlodipine 5 mg oral daily for now. Please follow-up with primary care provider within next 2 weeks. Discharge Attestations Time Spent in Discharge Care*: greater than 30 min Specific Discharge Activities: educating patient, discussing with pcp/other providers, discussing with rn case management/social workers/dc planners, documenting/other paperwork and evaluating patient/reviewing data Status at Discharge: Cognitive status at discharge: mildly impaired cognition , Behavioral status at discharge: cooperative , Functional status at discharge: independent ambulation , Overall status at discharge: patient is back to baseline Quality Metrics Clinical Quality Measures [ No reported AMI, CVA or VTE this stay] Coding Level of Care Code 40539 Diagnoses UTI (urinary tract infection) N39.0 Hypotension I95.9 Orthostatic hypotension I95.1 Bradycardia with 41-50 beats per minute R00.1 Stage 3a chronic kidney disease N18.30 Intermittent self-catheterization of bladder Z78.9 Primary hypertension I10 Hypertension type: primary hypertension Atrial fibrillation I48.91 Mass of colon K63.89
== END 2023-06-03 11:28 | disposition home health service (06) | DRG 315 ==
LOC: ER 13:10 → MEDSURG 13:32
PROVIDERS: Admitting Provider Student in an Organized Health Care Education/Training Program; Emergency Provider Emergency Medicine; PCP Family Medicine Adult Medicine; Visit Provider Student in an Organized Health Care Education/Training Program
DX: I95.9 Hypotension, unspecified (principal); I48.20 Chronic atrial fibrillation, unspecified; N39.0 Urinary tract infection, site not specified; R00.1 Bradycardia, unspecified; I95.1 Orthostatic hypotension; I12.9 Hypertensive chronic kidney disease with stage 1 through stage 4 chronic kidney disease, or unspecified chronic kidney disease; N18.30 Chronic kidney disease, stage 3 unspecified; N40.1 Benign prostatic hyperplasia with lower urinary tract symptoms; R33.9 Retention of urine, unspecified; K63.89 Other specified diseases of intestine; Z79.82 Long term (current) use of aspirin; K21.9 Gastro-esophageal reflux disease without esophagitis
CPT/HCPCS: 36415; 51702; 51798; 70450; 71045; 76770; 80053; 80061; 80306; 81001; 82436; 82607; 82746; 83036; 83540; 83550; 83605; 83735; 84100; 84133; 84145; 84300; 84443; 84484; 85025; 86403; 87040; 87077; 87086; 87186; 93005; 94664; 96365; 96372; 99285; J0692; J0696; J1650; J3475; J7030

== ENCOUNTER 2023-06-08 06:52 | Outpatient (CLI) | payer MEDICARE, MEDICAID, SELFPAY ==
[2023-06-08] MEDS: iohexol 350 mg/mL 500 mL Btl (per mL) PO (07:53)
[2023-06-08] MEDS: iohexol 350 mg/mL 500 mL Btl (per mL) IV (07:54)
--- NOTE | 2023-06-08 08:00 | CT_ITS ---
WS: [id number] CT CHEST, ABDOMEN AND PELVIS WITH CONTRAST HISTORY: colon mass TECHNIQUE: Contiguous 5 mm axial imaging performed through the chest, abdomen and pelvis with IV cont rast, oral contrast has been provided. Coronal and sagittal reformats chest. Coronal and sagittal ref ormats through the abdomen and pelvis. All CT scans at [facility] use at least one of these d ose optimization techniques: automated exposure control; mA and/or kV adjustment per patient size (in cludes targeted exams where dose is matched to clinical indication); or iterative reconstruction. CONTRAST: Omnipaque 350; 100 mL IV. DLP: 883.10 mGy.cm COMPARISON: Noncontrast CT 03/04/2022, postcontrast CT 12/30/[address]: 3 mm nodule in the RIGHT middle lobe. On the sagittal projection this appears to be more li near and scarlike than an actual nodule. No nodules greater than 3 mm. No new mass. Mild dependent ch anges at the lung bases. No mediastinal or hilar adenopathy. Heart is very mildly enlarged. No perica rdial or pleural effusions. Atherosclerosis aorta. No aneurysm. Normal size pulmonary artery. Small h iatal hernia. Abdomen CT: Status post cholecystectomy. Intrahepatic and extrahepatic bile duct dilatation is simila r to prior studies which is probably related to the gallbladder removal. Normal portal vein. Normal s pleen. Normal adrenal glands. Pancreas is normal size. There is a very small low-density nodule in th e pancreatic head measuring 7 mm which is probably related to the duct. This is been present on prior studies. Similar configuration was noted on 07/13/2016. No renal obstruction. Cortical thinning. RIGH T renal cyst 1.7 cm. Nonobstructing calcification lower pole LEFT kidney, 1.3 x 1.0 cm. Additional co rtical hypodensities and cortical thinning of the LEFT kidney. No solid mass. Mild atherosclerosis ao rta. There is mild diffuse wall thickening of the stomach. No small bowel obstruction. Appendix is normal. There are a few scattered distal colon diverticula. No obstructing colon lesion. There is very minim al thickening of the rectal wall which may be due to under distention. No adenopathy or ascites. Pelvic CT: Mild diffuse bladder wall thickening. Mild prostate enlargement. No adenopathy. No destructive bone lesions. Fusion across the L3-4 and L4-5 discs. IMPRESSION: 1. No obstructive colon lesion is identified. There are a few diverticula and mild constipation. 2. Normal appendix. 3. No adenopathy or ascites. 4. Prior cholecystectomy. 5. Intrahepatic and extrahepatic duct dilatation has been seen on multiple prior examinations and pr obably related to the cholecystectomy. 6. No pulmonary mass or nodule. No pneumonia. 7. There are a few small low-attenuation lesions within the pancreatic head. As compared to prior st udies similar to 07/13/2016. These changes are probably related to the pancreatic duct and the common bile duct. 8. Mild diffuse wall thickening of the stomach. Nonspecific. No discrete mass. 9. Bilateral cortical thinning of the each kidney with cysts and a nonobstructing LEFT lower pole ca lcification.
== END 2023-06-08 06:53 | disposition home or self-care (01) ==
PROVIDERS: PCP Family Medicine Adult Medicine; Visit Provider Surgery
DX: K63.89 Other specified diseases of intestine (principal); K86.9 Disease of pancreas, unspecified
CPT/HCPCS: 71260; 74177; Q9967

== ENCOUNTER → 2023-06-22 13:10 | Outpatient (BNVA) | payer MEDICARE, MEDICAID, SELFPAY | PROVIDERS: PCP Family Medicine Adult Medicine; Visit Provider Surgery | DX: Z12.11 Encounter for screening for malignant neoplasm of colon | CPT/HCPCS: 99024; 99214 ==

== ENCOUNTER 2023-09-28 09:30 | Emergency (ER) | payer MEDICARE, MEDICAID, SELFPAY ==
[2023-09-28 09:44] VITALS: BP 148/67; PULSE 56; RESP 16; TEMP 36.5; O2SAT 95; BMI 26.7
--- NOTE | 2023-09-28 09:47 | ED_ITS ---
HPI - Fall General: Chief Complaint: Fall Stated Complaint: fall, neck and shoulder pain Time Seen by Provider: 09/28/23 09:36 Source: patient Mode of arrival: ambulatory Limitations: no limitations History of Present Illness: Patient is a nice 78-year-old male presents to ED today for evaluation following a fall that occurred yesterday. Patient states he was outside chasing his chickens when he accidentally tripped over a tree stump and fell. He states he struck the superior portion of his scalp. He does report positive LOC. He is here today complaining of pain to his head and neck. He feels like his shoulders feel stiff but is able to move these fairly well. Patient is not sure if he takes any type of anticoagulation. He arrives here alert and oriented and ambulatory without difficulty or assistance. MD complaint: fall Onset (ago): day(s) (yesterday) Fall from: standing Fall witnessed: no Place fall occurred: home Loss of consciousness: Yes Length of LOC: second(s) Prolonged down time: no Symptoms prior to fall: none Context: tripped/slipped Location of injury: head and neck Severity: moderate Associated symptoms-after fall: Reports no associated symptoms, headache(s) and neck pain; Denies chest pain, confusion, difficulty walking, lightheadedness or vertigo Review of Systems Eyes: Denies: change in vision, blurry vision, photophobia, floaters or seeing flashes Card: Denies: chest pain, palpitations, lightheadedness, syncope or pre- syncope GI: Denies: nausea or vomiting Musc: Reports: neck pain and joint pain; Denies: back pain, extremity pain, extremity swelling or joint swelling Neuro: Reports: headache(s); Denies: numbness in extremities, weakness in extremities, sensory changes, lack of coordination, difficulty walking, dizziness, vertigo, confusion, behavioral changes, difficulty communicating thoughts or seizure-like activity PFS ED PFSH: Medical History Bradycardia with 41-50 beats per minute Acute myofascial strain of lumbosacral region BPH w urinary obs/LUTS Urethral stricture Recurrent UTI Sacroiliac inflammation Personal history of osteoporosis Allergic rhinitis due to allergen Hyperparathyroidism (04/08/20) COVID-19 (10/16/20) Basal cell carcinoma, 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) Left, s/p Mohs History of cardiac arrhythmia Has has documented transient atrial fibrillation/flutter with rapid ventricular response with spontaneous conversion to sinus rhythm in 2013 post op, again 2017 during acute illness History of nonmelanoma skin cancer Obesity (BMI 30.0-34.9) TIA (transient ischemic attack) Osteoarthritis involving multiple joints on both sides of body Neck, back & rt knee and rt AC joint Meatal stenosis Anxiety Chronic kidney disease, stage III (moderate) Squamous cell carcinoma of penis Hypertension GERD (gastroesophageal reflux disease) Depression Surgical History Status post colon resection winter Status post right knee replacement 03/23/2022 Dr. Wolfe Rt TKR S/P Mohs surgery for basal cell carcinoma Left arm 10/2021 Back planned 10/2021 History of surgery on upper extremity Left, s/p fracture History of excision of mass (07/2015) Penile lesion, by Dr Encinas. Procedure done: 1. Dorsal relaxing incision to expose penile mass 2. Wide excision of invasive appearing penile lesion consistent grossly with squamous cell carcinoma. Involving the glans penis and incompletely resected. Squamous cell carcinoma History of repair of right rotator cuff (04/2020) Dr Wolfe, Arthroscopic repair right rotator cuff, limited debridement including biceps tenotomy, labral debridement, subacromial bursectomy, and subacromial decompression History of knee surgery (10/2011) Dr Andres. Right knee arthroscopy, chondroplasty patella, medial femoral condyle, lateral femoral condyle and mild debridement of the posterior horn lateral meniscus. History of laparoscopic cholecystectomy Family History Mother , in her 80's Stroke Father , in his 60's Alcoholic Denies family history of Anesthesia complication Bleeding disorder Social History Smoking and tobacco/nicotine status: never used tobacco/nicotine Second hand smoke exposure: No Alcohol intake: never Substance/Drug Use: never Adopted: No Caregiver/support person: Yes Lives independently: Yes Household members: family and other Details: Son, grandson at house Housing: House Marital status: / Highest education level completed: High School Graduate service: No Current occupational status: retired Sexually active: No Do you think of yourself as: Straight/Heterosexual Current gender identity: Male Tri/Pentecostalism: Alevism Special tri needs: No Physical Exam Const: COMMON NORMALS: no acute distress, average body habitus, patient oriented x3, no limitations, healthy appearing, alert and well nourished GENERAL APPEARANCE: cooperative ORIENTATION/CONSCIOUSNESS: Yes awake, Yes oriented to person, Yes oriented to place and Yes oriented to time HENMT: COMMON NORMALS: normocephalic HEAD & SCALP: normocephalic and other (mild abrasion top of scalp) FACE & SINUS: normal facial exam Eye: COMMON NORMALS: Equal, round and reactive pupils present and EOMs intact bilaterally GENERAL EYE: appearance normal, both eyes and all related structures and normal light reflex PUPIL: Yes Equal, round and reactive pupils present DIRECT OPHTHALMOSCOPY: Yes normal light reflex Neck/C-Spine: GENERAL: Yes normal visual inspection CERVICAL SPINE: Yes pain with cervical ROM, Yes Cervical spine tenderness, No step off deformity and Yes Paracervical muscle tenderness Resp: COMMON NORMALS: normal respiratory effort and clear to auscultation bilaterally AUSCULTATION: clear to auscultation bilaterally Cardio: COMMON NORMALS: regular rate and regular rhythm RATE: regular rate RHYTHM: regular rhythm Back/Pelvis: COMMON NORMALS: thoracic and lumbar spine normal to inspection and no thoracic nor lumbar tenderness Extremity: COMMON NORMALS: normal to inspection and full ROM GENERAL: Yes normal exam except as noted OTHER: can move bilateral shoulders without any bony joint pains Neuro: COMMON NORMALS: patient oriented x3, moves all extremities, no focal motor deficits, no sensory deficits noted and gait normal SENSORIUM/ORIENTATION: Yes alert, Yes oriented to person, Yes oriented to place and Yes oriented to time Course Vital Signs: Vital signs: Vital Signs Temperature 97.7 F 09/28/23 09:44 Pulse Rate 52 L 09/28/23 11:00 Respiratory Rate 16 09/28/23 09:44 Blood Pressure 109/60 09/28/23 11:00 Pulse Oximetry 91 09/28/23 11:00 Oxygen Delivery Me thod Room Air 09/28/23 11:00 MDM - Fall Medical Decision Making CTs unremarkable. Patient will be allowed discharge with return precautions. Medical Records I reviewed the patient's medical records. Lab Data Radiology Impressions Cervical Spine CT 09/28/23 09:51 IMPRESSION: No evidence of acute fracture or dislocation. Head CT 09/28/23 09:51 IMPRESSION: 1. No evidence of intracranial hemorrhage or mass effect. 2. No acute intracranial findings. All radiology interpretation(s) finalized by discharge Discharge Plan Discharge Patient Disposition: Home Clinical Impression: Fall from slip, trip, or stumble, Minor closed head injury, Neck strain Condition: Stable Prescriptions: No Action ascorbic acid (vitamin C) 1,000 mg tablet 1,000 mg PO BID tizanidine 4 mg tablet 4 mg PO BEDTIME PRN (Reason: MUSCLE CRAMPS) Qty: 30 3RF FiberCon 625 mg tablet 1,250 mg PO BID Qty: 120 5RF (DME) Non-articular Polymer AFO to left See Rx Instructions .Route .MEDSUPPLY Qty: 1 0RF Rx Instructions: As directed by [facility] omeprazole 20 mg capsule,delayed release(DR/EC) 20 mg PO BID Qty: 60 5RF (DME) AFO to the Left See Rx Instructions .Route .MEDSUPPLY Qty: 1 0RF Rx Instructions: As directed [facility] methenamine hippurate 1 gram tablet 1 g PO BID Qty: 60 5RF alprazolam [Xanax] 1 mg tablet 1 mg PO BID PRN (Reason: anxiety) Qty: 60 3RF doxepin 50 mg capsule 50 mg PO .q hs Qty: 30 2RF Rx Instructions: Take 1 to 2 hours before sleep time amlodipine 10 mg tablet 5 mg PO DAILY Qty: 90 1RF tamsulosin 0.4 mg capsule 0.8 mg PO BEDTIME triamcinolone acetonide 0.1 % cream See Rx Instructions .ROUTE .COMPLEX Rx Instructions: Apply TO tight foreskin TWICE DAILY NEEDED. Do not USE FOR more THAN TWO weeks at a time; every TWO MONTHS or so NEEDED. fluticasone propionate 50 mcg/actuation spray,suspension 2 spray INTRANASAL DAILY hydrocodone-acetaminophen 10-325 mg tablet 1 - 2 tab PO QID PRN (Reason: Pain) fluvoxamine 50 mg tablet 50 mg PO BID aspirin 81 mg Tablet,Delayed Release (Dr/Ec) 81 mg PO QPM Men's 50 Plus Multivitamin 400-20-370 mcg Tablet 1 tab PO DAILY Discharge Orders: Discharge ED (Routine); Ordered 09/28/23 Ordered By: Julienne Harrell Referrals: Faustino Natarajan MD [Primary Care Provider] - Patient Instructions: Cervical Strain (DC), Head Injury (DC) Coding Level of Care Code ED Television Director for Cielo Chopra
--- NOTE | 2023-09-28 09:51 | CT_ITS ---
WS: [id number] CT HEAD TECHNIQUE: Noncontrast CT of the head obtained from the skullbase to the vertex. CLINICAL INFORMATION: trauma/fall COMPARISON: CT 06/01/2023 DLP: 1826.[address] scans at [facility] use at least one of these dose optimization techniques: automated e xposure control; mA and/or kV adjustment per patient size (includes targeted exams where dose is matc hed to clinical indication); or iterative reconstruction. FINDINGS: No evidence of intracranial hemorrhage or mass effect. Ventricular system and basal cisterns are mai nt. Mild small vessel changes with moderate parenchymal volume loss worse in the frontal lobes. No ex tra-axial fluid collections. No evidence of mass or mass effect. Paranasal sinuses and mastoid air cells are well aerated. .Normal visualized soft tissues. CT/CT head wo con* [id number] IMPRESSION: 1. No evidence of intracranial hemorrhage or mass effect. 2. No acute intracranial findings.
--- NOTE | 2023-09-28 09:51 | CT_ITS ---
WS: [id number] CT CERVICAL TRAUMA TECHNIQUE: Noncontrast CT of the cervical spine with coronal and sagittal reformatted images. CLINICAL INFORMATION: fall COMPARISON: 05/06/2021 DLP: 1826.[address] scans at [facility] use at least one of these dose optimization techniques: automated e xposure control; mA and/or kV adjustment per patient size (includes targeted exams where dose is matc hed to clinical indication); or iterative reconstruction. FINDINGS: Straightening of the normal cervical lordosis. Moderate spondylitic changes. Slight anterolisthesis C 3 on C4 and C5 on C6. Normal craniocervical junction. Normal C1-C2 articulation. Dens is normal in ap pearance. Normal occipital condyles. No high-grade spinal canal narrowing. Normal C1 ring. No evidenc e of acute fracture or dislocation. Normal prevertebral soft tissues. Mastoids air cells are well aerated. CT/CT cervical spin wo con* [id number] IMPRESSION: No evidence of acute fracture or dislocation.
[2023-09-28 11:00] VITALS: BP 109/60; PULSE 52; O2SAT 91
[2023-09-28 11:30] VITALS: BP 110/50; PULSE 50; O2SAT 95
[2023-09-28 12:00] VITALS: BP 116/56; PULSE 48; O2SAT 92
[2023-09-28 12:24] VITALS: BP 112/51; PULSE 58; O2SAT 94
== END 2023-09-28 12:24 | disposition home or self-care (01) ==
PROVIDERS: Emergency Provider Physician Assistant; PCP Emergency Medicine
DX: S00.01XA Abrasion of scalp, initial encounter (principal); S16.1XXA Strain of muscle, fascia and tendon at neck level, initial encounter; Z86.73 Personal history of transient ischemic attack (TIA), and cerebral infarction without residual deficits; I12.9 Hypertensive chronic kidney disease with stage 1 through stage 4 chronic kidney disease, or unspecified chronic kidney disease; N18.30 Chronic kidney disease, stage 3 unspecified; W01.0XXA Fall on same level from slipping, tripping and stumbling without subsequent striking against object, initial encounter; Z79.82 Long term (current) use of aspirin
CPT/HCPCS: 70450; 72125; 99284

== ENCOUNTER 2023-11-05 10:43 | Outpatient (CLI) | payer MEDICARE, MEDICAID, SELFPAY ==
--- NOTE | 2023-11-05 10:46 | MR_ITS ---
WS: [id number] MRI HEAD WITHOUT CONTRAST TECHNIQUE: Sagittal T1, T2 axial, T2 axial FLAIR, axial and coronal T1 images, axial susceptibility w eighted imaging, axial diffusion weighted images, and coronal T2 images were obtained. CLINICAL INFORMATION: FACIAL DROOP COMPARISON: MRI 07/14/2021 FINDINGS: No evidence of restricted diffusion to suggest acute ischemia. Ventricular system and basilar cistern s are patent. Mild small vessel changes. Moderate parenchymal volume loss. Normal posterior fossa. No rmal vascular flow voids at the skull base. No extra-axial fluid collections. No evidence of mass or mass effect. Paranasal sinuses are well aerated. Mild mucosal thickening in the mastoid air cells. Re tention cyst LEFT maxillary sinus. No hemosiderin on the susceptibility weighted images. Normal optic chiasm and pituitary infundibulum. Moderate symmetric atrophy temporal lobes and hippocampal formations. MR/MR head wo con* [id number] IMPRESSION: 1. No evidence of restricted diffusion to suggest acute ischemia. 2. Mild small vessel changes with moderate parenchymal volume loss. 3. No hemosiderin on the susceptibility weighted images. 4. No acute intracranial findings.
== END 2023-11-05 10:44 | disposition home or self-care (01) ==
LOC: RAD 10:43
PROVIDERS: PCP Internal Medicine; Visit Provider Internal Medicine
DX: R29.810 Facial weakness (principal); G31.89 Other specified degenerative diseases of nervous system; G31.9 Degenerative disease of nervous system, unspecified
CPT/HCPCS: 70551

== ENCOUNTER → 2023-11-12 09:37 | Outpatient (BNVA) | payer MEDICARE, MEDICAID, SELFPAY | PROVIDERS: PCP Internal Medicine | DX: R11.10 Vomiting, unspecified (principal) | CPT/HCPCS: 81000 ==

== ENCOUNTER → 2023-11-25 13:55 | Outpatient (BNVA) | payer MEDICARE, MEDICAID, SELFPAY | PROVIDERS: PCP Internal Medicine; Visit Provider Nurse Practitioner Family | DX: L57.0 Actinic keratosis (principal); L81.4 Other melanin hyperpigmentation; L57.8 Other skin changes due to chronic exposure to nonionizing radiation; Z85.828 Personal history of other malignant neoplasm of skin | CPT/HCPCS: 17004; 99214 ==

== ENCOUNTER → 2023-12-11 12:49 | Outpatient (BNVA) | payer MEDICARE, MEDICAID, SELFPAY | PROVIDERS: PCP Internal Medicine; Visit Provider Emergency Medicine | DX: J02.9 Acute pharyngitis, unspecified (principal); R05.8 Other specified cough | CPT/HCPCS: 87071; 87400; 87426; 87880 ==

== ENCOUNTER → 2024-01-23 11:51 | Outpatient (BNVA) | payer MEDICARE, MEDICAID, SELFPAY | PROVIDERS: PCP Internal Medicine; Visit Provider Registered Nurse Neonatal Intensive Care | DX: J02.9 Acute pharyngitis, unspecified (principal) | CPT/HCPCS: 87071; 87880 ==

== ENCOUNTER → 2024-02-14 12:30 | Outpatient (BNVA) | payer MEDICARE, MEDICAID, SELFPAY | PROVIDERS: PCP Internal Medicine; Visit Provider Nurse Practitioner Family | DX: R05.9 Cough, unspecified (principal) | CPT/HCPCS: 71046 ==

== ENCOUNTER 2024-03-22 08:50 | Outpatient (CLI) | payer MEDICAID, MEDICARE, SELFPAY ==
--- NOTE | 2024-03-22 09:01 | CT_ITS ---
WS: [id number] CT chest wo con [id number] HISTORY: HEMOPTYSIS TECHNIQUE: Axial imaging performed through the thorax. Coronal and sagittal reformats are submitted. All CT scans at [facility] use at least one of these dose optimization techniques: automated exposure control; mA and/or kV adjustment per patient size (includes targeted exams where dose is mat ched to clinical indication); or iterative reconstruction. CONTRAST: None DLP: 469.77 mGy.cm COMPARISON: 06/08/2023 Lungs and central airway: New multifocal opacifications involving sections of the LEFT lower lobe and lingula. Nodular opacifications with a very small mild pleural thickening in the LEFT lower lobe. Allen bcentimeter opacification at the RIGHT lung base. No change in the RIGHT middle lobe 3 mm scar. Froth y secretions noted in the proximal bronchi. Pleura: No effusion. Mild LEFT pleural thickening. Heart and pericardium: Normal size heart with no pericardial effusion. Mediastinum and justine: 13 mm subcarinal lymph node. Vessels: Mild atherosclerosis aorta. No aneurysm. Normal size pulmonary artery. Normal size pulmonary artery. Moderate coronary artery calcifications, greatest in the LAD. Chest wall and lower neck: No soft tissue masses. Upper abdomen: Small hiatal hernia. Prior cholecystectomy. Mild central bile duct dilatation similar to the prior study and likely related to the cholecystectomy. Osseous structures: No destructive process. CT/CT chest wo con [id number] IMPRESSION: 1. New multifocal areas of consolidation in the LEFT lower lobe and at the cheikh gula. Most consistent with pneumonia. Recommend follow-up to resolution after t reatment. 2. Mild LEFT pleural thickening with no effusion. 3. Small hiatal hernia. 4. Prior cholecystectomy.
== END 2024-03-22 08:51 | disposition home or self-care (01) ==
LOC: RAD 08:56
PROVIDERS: PCP Internal Medicine; Visit Provider Internal Medicine
DX: R04.2 Hemoptysis (principal); R91.8 Other nonspecific abnormal finding of lung field; J92.9 Pleural plaque without asbestos; Z90.49 Acquired absence of other specified parts of digestive tract; I70.0 Atherosclerosis of aorta; I25.10 Atherosclerotic heart disease of native coronary artery without angina pectoris; K44.9 Diaphragmatic hernia without obstruction or gangrene; R59.0 Localized enlarged lymph nodes; R93.3 Abnormal findings on diagnostic imaging of other parts of digestive tract
CPT/HCPCS: 71250

== ENCOUNTER → 2024-03-31 14:43 | Outpatient (BNVA) | payer MEDICARE, MEDICAID, SELFPAY | PROVIDERS: PCP Internal Medicine; Visit Provider Family Medicine | DX: I10 Essential (primary) hypertension (principal); N13.8 Other obstructive and reflux uropathy; N40.1 Benign prostatic hyperplasia with lower urinary tract symptoms; Z12.5 Encounter for screening for malignant neoplasm of prostate | CPT/HCPCS: 80053; 80061; 84153; 85025 ==

== ENCOUNTER → 2024-05-24 13:51 | Outpatient (BNVA) | payer MEDICARE, MEDICAID, SELFPAY | PROVIDERS: PCP Family Medicine; Visit Provider Nurse Practitioner Family | DX: L81.4 Other melanin hyperpigmentation (principal); L57.8 Other skin changes due to chronic exposure to nonionizing radiation; B35.1 Tinea unguium; Z08 Encounter for follow-up examination after completed treatment for malignant neoplasm; Z85.828 Personal history of other malignant neoplasm of skin; L57.0 Actinic keratosis; D48.5 Neoplasm of uncertain behavior of skin | CPT/HCPCS: 11102; 17004; 99213 ==

== ENCOUNTER → 2024-07-03 10:49 | Outpatient (BNVA) | payer MEDICARE, MEDICAID, SELFPAY | PROVIDERS: PCP Family Medicine; Visit Provider Family Medicine | DX: N30.20 Other chronic cystitis without hematuria (principal) | CPT/HCPCS: 80048 ==

== ENCOUNTER 2024-07-07 13:22 | Outpatient (CLI) | payer MEDICARE, MEDICAID, SELFPAY ==
--- NOTE | 2024-07-07 13:30 | USCV_ITS ---
Mike Silva Age: 79 Gender: M : 1945 Exam Date: 07/07/2024 13:35 Ordering Phys: Yovani Carter MD Technologist: [employer] Exam Location: [facility] [place] Indication: pain HISTORY: Lower extremity pain. PROCEDURES: Venous duplex imaging was performed in only the left lower extremity. The following venous structures were evaluated: common femoral vein, profunda vein, proximal portion of the greater saphenous vein, superficial femoral vein, and the popliteal vein. In addition, the posterior tibial and peroneal trunk were evaluated. FINDINGS: No evidence of DVT seen in any vessel visualized at this time. CONCLUSIONS No evidence of left lower extremity DVT. Panfilo Ennis MD (Electronically Signed) Final Date: 07 Jul 2024 15:36 S
== END 2024-07-07 13:23 | disposition home or self-care (01) ==
LOC: RAD 13:23
PROVIDERS: PCP Family Medicine; Visit Provider Family Medicine
DX: M79.605 Pain in left leg (principal)
CPT/HCPCS: 93971

== ENCOUNTER 2024-07-20 11:31 | Outpatient (RCR) | payer MEDICARE, MEDICAID, SELFPAY | END 2024-07-29 23:59 | disposition home or self-care (01) | LOC: SPT 11:31 | PROVIDERS: PCP Family Medicine; Visit Provider Family Medicine | DX: M79.605 Pain in left leg (principal) | CPT/HCPCS: 97161 ==

== ENCOUNTER → 2024-10-03 11:22 | Outpatient (BNVA) | payer MEDICARE, MEDICAID, SELFPAY | PROVIDERS: PCP Family Medicine; Visit Provider Surgery | DX: K59.00 Constipation, unspecified (principal) | CPT/HCPCS: 74018; 99214 ==

== ENCOUNTER 2024-11-09 07:23 | Day surgery (SDC) | payer MEDICARE, MEDICAID, SELFPAY ==
[2024-11-09 07:39] VITALS: BP 94/67; PULSE 106; RESP 18; TEMP 36.4; O2SAT 96; BMI 29.5
--- NOTE | 2024-11-09 08:02 | W.PM.OPSFHP ---
Same Day Surgery H&P Indication for Procedure/HPI DATE OF PROCEDURE: November 09, 2024 CHIEF COMPLAINT/INDICATIONFOR SURGICAL PROCEDURE: needc for screening colonoscopy PREOP DIAGNOSIS: need for screeninc colonoscopy PLANNED PROCEDURE: Operation Date: 11/09/24 09:00 Proposed Procedures p Colonoscopy 61497 G0105 K59.00(Not Applicable) - Viet Mcclure MD Medications/Allergies* Home Medications ?Medication ?Instructions ?Recorded ?Confirmed ?Type ascorbic acid (vitamin C) 1,000 mg 1,000 mg PO BID 03/27/21 11/06/24 History tablet hydrocodone 10 mg-acetaminophen 1 - 2 tab PO QID PRN Pain 05/19/21 11/06/24 History 325 mg tablet aspirin 81 mg tablet,delayed 81 mg PO QPM 12/01/21 11/06/24 History release vrkeezbabrus-sqg-jilys acid-vit 1 tab PO DAILY 12/01/21 11/06/24 History K-lycop 400 mcg-20 mcg-370 mcg tablet (Men's 50 Plus Multivitamin) fluticasone propionate 50 2 spray intranasal DAILY 06/01/23 11/06/24 History mcg/actuation nasal spray,suspension Allergies/Adverse Reactions Allergy/AdvReac Type Severity Reaction Status Date / Time Penicillins Allergy Intermediate rash Verified 10/03/24 11:35 sulfamethoxazole (From Allergy Hallucianti Verified 10/03/24 11:35 Bactrim) ons trimethoprim (From Bactrim) Allergy Hallucianti Verified 10/03/24 11:35 ons Current Medications: Generic Name Dose Route Start Last Admin Trade Name Freq PRN Reason Stop Dose Admin Sodium Chloride 500 mls @ 30 mls/hr 11/09/24 07:30 11/09/24 07:48 Sodium Chloride 0.9% IV 11/10/24 00:09 30 mls/hr .[id number] ILIANA Administration Pertinent History/Comorbid Conditions* Medical History (Updated 09/18/24 @ 17:11 by Yovani Carter MD) Chronic cystitis Bradycardia with 41-50 beats per minute Acute myofascial strain of lumbosacral region BPH w urinary obs/LUTS Urethral stricture Recurrent UTI Sacroiliac inflammation Personal history of osteoporosis Allergic rhinitis due to allergen Hyperparathyroidism (04/08/20) COVID-19 (10/16/20) Basal cell carcinoma, 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) Left, s/p Mohs History of cardiac arrhythmia Has has documented transient atrial fibrillation/flutter with rapid ventricular response with spontaneous conversion to sinus rhythm in 2013 post op, again 2017 during acute illness History of nonmelanoma skin cancer Obesity (BMI 30.0-34.9) TIA (transient ischemic attack) Osteoarthritis involving multiple joints on both sides of body Neck, back & rt knee and rt AC joint Meatal stenosis Anxiety Chronic kidney disease, stage III (moderate) Squamous cell carcinoma of penis Hypertension GERD (gastroesophageal reflux disease) Depression Surgical History (Updated 07/15/23 @ 14:08 by Charlie Jay MD) Status post colon resection winter Status post right knee replacement 03/23/2022 Dr. Wolfe Rt TKR S/P Mohs surgery for basal cell carcinoma Left arm 10/2021 Back planned 10/2021 History of surgery on upper extremity Left, s/p fracture History of excision of mass (07/2015) Penile lesion, by Dr Encinas. Procedure done: 1. Dorsal relaxing incision to expose penile mass 2. Wide excision of invasive appearing penile lesion consistent grossly with squamous cell carcinoma. Involving the glans penis and incompletely resected. Squamous cell carcinoma History of repair of right rotator cuff (04/2020) Dr Wolfe, Arthroscopic repair right rotator cuff, limited debridement including biceps tenotomy, labral debridement, subacromial bursectomy, and subacromial decompression History of knee surgery (10/2011) Dr Andres. Right knee arthroscopy, chondroplasty patella, medial femoral condyle, lateral femoral condyle and mild debridement of the posterior horn lateral meniscus. History of laparoscopic cholecystectomy Family History (Updated 03/27/21 @ 14:09 by Ashley High LPN) Father, in his 60's Mother, in her 80's Alcoholic Father Stroke Mother Denies family history of Anesthesia complication Bleeding disorder Social History Smoking and tobacco/nicotine status: never used tobacco/nicotine Second hand smoke exposure: No Alcohol intake: never Substance/Drug Use: never Adopted: No Caregiver/support person: Yes Lives independently: Yes Household members: family and other Details: Son, grandson at house Housing: House Marital status: / Highest education level completed: High School Graduate service: No Current occupational status: retired Sexually active: No Do you think of yourself as: Straight/Heterosexual Current gender identity: Male Tri/Nondenominational: Rastafari Special tri needs: No Pertinent Exam Findings alert, oriented x 3, clear to auscultation bilaterally and regular rate & rhythm Recommendations Surgery/Procedure today Coding Level of Care Code Acute Code for Chg Nav
--- NOTE | 2024-11-09 08:15 | ANES.PREANE2 ---
Pre-Anesthetic Assessment Height/Weight: Height 1.75 m Weight 90.718 kg Temp Pulse Resp BP Pulse Ox O2 Del Method 97.5 F L 106 H 18 94/67 96 Room Air 11/09/24 07:39 11/09/24 07:39 11/09/24 07:39 11/09/24 07:39 11/09/24 07:39 11/09/24 07:39 Preop Diagnosis: need for screeninc colonoscopy Operation Date: 11/09/24 09:00 Proposed Procedures p Colonoscopy 70368 G0105 K59.00(Not Applicable) - Viet Mcclure MD Was Beta Tomi taken within 24 hours: Yes Was Clonidine taken within 24 hours: N/A Last intake: Intake Last Liquid Date 11/08/24 Last Liquid Time 20:00 Last Solid Date 11/07/24 Last Solid Time 17:00 Last Intake: 09:00 Social No alcohol and No tobacco Exam alert and oriented x 3 Airway Submandibular: within normal limits Cervical ROM: within normal limits Mallampati: Class I Dentition: other History/ROS No significant history except as noted Pulmonary None reported CV/HEM Hypertension and None reported None reported Hepatic None reported GI bowel resection Metabolic None reported Musc/skel None reported Neuropsych None reported Anesthetic Plan ASA status: 3 Anesthesia: MAC Risk of > 500 ml blood loss (7ml/kg in children): No Medications/Allergies Home Medications ?Medication ?Instructions ?Recorded ?Confirmed ?Last Taken ?Type ascorbic acid (vitamin C) 1,000 mg 1,000 mg PO BID 03/27/21 11/06/24 11/06/24 History tablet hydrocodone 10 mg-acetaminophen 1 - 2 tab PO QID PRN Pain 05/19/21 11/06/24 11/06/24 History 325 mg tablet AFO to the Left #1 ea 08/05/21 11/06/24 11/06/24 Rx aspirin 81 mg tablet,delayed 81 mg PO QPM 12/01/21 11/06/24 11/06/24 History release vnnaqpnramit-moa-pxzhm acid-vit 1 tab PO DAILY 12/01/21 11/06/24 11/06/24 History K-lycop 400 mcg-20 mcg-370 mcg tablet (Men's 50 Plus Multivitamin) Non-articular Polymer AFO to left #1 ea 11/12/22 11/06/24 11/06/24 Rx fluticasone propionate 50 2 spray intranasal DAILY 06/01/23 11/06/24 11/06/24 History mcg/actuation nasal spray,suspension calcium polycarbophil 625 mg 1,250 mg (2 x 625 mg) PO BID fiber 07/15/23 11/06/24 11/06/24 Rx tablet (FiberCon) for loose stools #120 tabs tizanidine 4 mg tablet 4 mg PO BID PRN MUSCLE CRAMPS #60 05/18/24 11/06/24 11/06/24 Rx Held on 07/03/24. tabs Instructions: Adverse Reaction doxepin 50 mg capsule 50 mg PO .q hs sleep #30 caps 06/06/24 11/06/24 11/06/24 Rx omeprazole 20 mg capsule,delayed 20 mg PO BID acid reflux #180 caps 06/06/24 11/06/24 11/06/24 Rx release escitalopram oxalate 10 mg tablet 10 mg PO DAILY #90 tabs 06/07/24 11/06/24 11/06/24 Rx (Lexapro) cyclobenzaprine 10 mg tablet 10 mg PO TID PRN muscle spasm #21 07/03/24 11/06/24 11/06/24 Rx tabs methenamine hippurate 1 gram tablet 1 g PO BID #60 tabs 07/03/24 11/06/24 11/06/24 Rx tamsulosin 0.4 mg capsule 0.8 mg (2 x 0.4 mg) PO BEDTIME 08/02/24 11/06/24 11/06/24 Rx urinary retention #180 caps alprazolam 1 mg tablet (Xanax) 1 mg PO BID PRN anxiety #60 tabs 08/03/24 11/06/24 11/06/24 Rx amlodipine 10 mg tablet 10 mg PO DAILY blood pressure #90 09/04/24 11/06/24 11/06/24 Rx tabs docusate sodium 100 mg tablet 100 mg PO DAILY constipation #30 09/18/24 11/06/24 11/06/24 Rx tabs polyethylene glycol 3350 17 17 g PO DAILY #238 grams 09/18/24 11/06/24 11/06/24 Rx gram/dose oral powder (Miralax) sucralfate 1 gram tablet 1 g PO BID #60 tabs 09/18/24 11/06/24 11/06/24 Rx metoprolol tartrate 25 mg tablet 12.5 mg (1/2 x 25 mg) PO BID #60 09/26/24 11/06/24 11/06/24 Rx tabs Allergies Allergy/AdvReac Type Severity Reaction Status Date / Time Penicillins Allergy Intermediate rash Verified 10/03/24 11:35 sulfamethoxazole (From Allergy Hallucianti Verified 10/03/24 11:35 Bactrim) ons trimethoprim (From Bactrim) Allergy Hallucianti Verified 10/03/24 11:35 ons Current Medications Generic Name Dose Route Start Last Admin Trade Name Freq PRN Reason Stop Dose Admin Sodium Chloride 500 mls @ 30 mls/hr 11/09/24 07:30 11/09/24 07:48 Sodium Chloride 0.9% IV 11/10/24 00:09 30 mls/hr .[id number] ILIANA Administration PFSH Anesthesia Medical History (Updated 09/18/24 @ 17:11 by Yovani Carter MD) Chronic cystitis Bradycardia with 41-50 beats per minute Acute myofascial strain of lumbosacral region BPH w urinary obs/LUTS Urethral stricture Recurrent UTI Sacroiliac inflammation Personal history of osteoporosis Allergic rhinitis due to allergen Hyperparathyroidism (04/08/20) COVID-19 (10/16/20) Basal cell carcinoma, 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) Left, s/p Mohs History of cardiac arrhythmia Has has documented transient atrial fibrillation/flutter with rapid ventricular response with spontaneous conversion to sinus rhythm in 2013 post op, again 2017 during acute illness History of nonmelanoma skin cancer Obesity (BMI 30.0-34.9) TIA (transient ischemic attack) Osteoarthritis involving multiple joints on both sides of body Neck, back & rt knee and rt AC joint Meatal stenosis Anxiety Chronic kidney disease, stage III (moderate) Squamous cell carcinoma of penis Hypertension GERD (gastroesophageal reflux disease) Depression Surgical History (Updated 10/03/24 @ 11:41 by Hina Menon) Status post colon resection winter Status post right knee replacement 03/23/2022 Dr. Wolfe Rt TKR S/P Mohs surgery for basal cell carcinoma Left arm 10/2021 Back planned 10/2021 History of surgery on upper extremity Left, s/p fracture History of excision of mass (07/2015) Penile lesion, by Dr Encinas. Procedure done: 1. Dorsal relaxing incision to expose penile mass 2. Wide excision of invasive appearing penile lesion consistent grossly with squamous cell carcinoma. Involving the glans penis and incompletely resected. Squamous cell carcinoma History of repair of right rotator cuff (04/2020) Dr Wolfe, Arthroscopic repair right rotator cuff, limited debridement including biceps tenotomy, labral debridement, subacromial bursectomy, and subacromial decompression History of knee surgery (10/2011) Dr Andres. Right knee arthroscopy, chondroplasty patella, medial femoral condyle, lateral femoral condyle and mild debridement of the posterior horn lateral meniscus. History of laparoscopic cholecystectomy Family History Mother , in her 80's Stroke Father , in his 60's Alcoholic Denies family history of Anesthesia complication Bleeding disorder Social History Smoking and tobacco/nicotine status: never used tobacco/nicotine Second hand smoke exposure: No Alcohol intake: never Substance/Drug Use: never Adopted: No Caregiver/support person: Yes Lives independently: Yes Household members: family and other Details: Son, grandson at house Housing: House Marital status: / Highest education level completed: High School Graduate service: No Current occupational status: retired Sexually active: No Do you think of yourself as: Straight/Heterosexual Current gender identity: Male Tri/Episcopalian: Sabianism Special tri needs: No Data Anesthesia Cardiac Studies: Echocardiogram 12/02/21 Sestamibi Stress Test (Cardiology) 03/20/22
[2024-11-09 09:03] VITALS: BP 92/61; PULSE 72; RESP 12; TEMP 36.1; O2SAT 96
--- NOTE | 2024-11-09 09:06 | ANE.PACU2 ---
Inpatient post-anesthesia follow up: Airway intact: Yes Vital signs: Temperature 97.0 F Pulse Rate 72 Respiratory Rate 12 Blood Pressure 92/61 Pulse Oximetry 96 Oxygen Delivery Me thod Nasal Cannula Oxygen Flow Rate 3 Fraction of Inspir ed Oxygen Hydration adequate: Yes Nausea and vomiting: No Pain level: 1 Mental status: Baseline
--- NOTE | 2024-11-09 09:15 | ANE.PACU2 ---
Inpatient post-anesthesia follow up: Airway intact: Yes Vital signs: Temperature 97.0 F Pulse Rate 72 Respiratory Rate 12 Blood Pressure 92/61 Pulse Oximetry 96 Oxygen Delivery Me thod Nasal Cannula Oxygen Flow Rate 3 Fraction of Inspir ed Oxygen Hydration adequate: Yes Nausea and vomiting: No Pain level: 0 Mental status: Baseline
[2024-11-09 09:20] VITALS: BP 126/89; PULSE 62; RESP 17; O2SAT 95
--- NOTE | 2024-11-09 13:12 | ANE.PACU2 ---
Inpatient post-anesthesia follow up: Vital signs: Temperature 97.0 F Pulse Rate 62 Respiratory Rate 17 Blood Pressure 126/89 Pulse Oximetry 95 Oxygen Delivery Me thod Room Air Oxygen Flow Rate 3 Fraction of Inspir ed Oxygen Hydration adequate: Yes Nausea and vomiting: No Mental status: Baseline
== END 2024-11-09 09:40 | disposition home or self-care (01) ==
PROVIDERS: PCP Family Medicine; Visit Provider Surgery
PROC: 0DJD8ZZ Inspection of Lower Intestinal Tract, Via Natural or Artificial Opening Endoscopic (ICD-10-PCS; CPT 45378; principal; 2024-11-09 09:00)
DX: Z12.11 Encounter for screening for malignant neoplasm of colon (principal); K63.89 Other specified diseases of intestine; Z79.82 Long term (current) use of aspirin; R00.1 Bradycardia, unspecified; E21.3 Hyperparathyroidism, unspecified; E66.9 Obesity, unspecified; Z68.29 Body mass index [BMI] 29.0-29.9, adult; I12.9 Hypertensive chronic kidney disease with stage 1 through stage 4 chronic kidney disease, or unspecified chronic kidney disease; N18.30 Chronic kidney disease, stage 3 unspecified; Z86.73 Personal history of transient ischemic attack (TIA), and cerebral infarction without residual deficits; F41.8 Other specified anxiety disorders; K21.9 Gastro-esophageal reflux disease without esophagitis
CPT/HCPCS: 45380; 88305; J2704; J7040

== ENCOUNTER → 2024-11-22 13:43 | Outpatient (BNVA) | payer MEDICARE, MEDICAID, SELFPAY | PROVIDERS: PCP Family Medicine; Visit Provider Nurse Practitioner Family | DX: L81.4 Other melanin hyperpigmentation (principal); L57.8 Other skin changes due to chronic exposure to nonionizing radiation; Z08 Encounter for follow-up examination after completed treatment for malignant neoplasm; Z85.828 Personal history of other malignant neoplasm of skin; L57.0 Actinic keratosis | CPT/HCPCS: 17004; 99213 ==

== ENCOUNTER → 2024-11-28 13:14 | Outpatient (BNVA) | payer MEDICARE, MEDICAID, SELFPAY | PROVIDERS: PCP Family Medicine; Visit Provider Surgery | DX: Z09 Encounter for follow-up examination after completed treatment for conditions other than malignant neoplasm (principal) | CPT/HCPCS: 99213 ==

== ENCOUNTER 2025-01-06 12:28 | Emergency (ER) | payer MEDICARE, MEDICAID, SELFPAY ==
--- OUTSIDE RECORDS SUMMARY | 2025-01-03 08:00 | XMS_ITS ---
Author Organization [facility] Address [address] [place] [address] Care Team Providers Care Dewer Name Role Phone Yovani Carter MD Primary Care Provider Unavailab andrea GanMagnoliaTameka Unavailable [phone] Adrianne Simmons Unavailable Allergies Allergen (clinical drug ingredient) Drug/Non Drug Allergy documented on EMR Reaction Allergy Type Onset Date Status sulfamethoxazole / trimethoprim Bactrim Reaction 1:Dizziness Drug Allergy 02/16/2023 active Substance with penicillin structure and antibacterial mechanism of action (substance) Penicillins Unknown Drug Allergy 11/10/2022 active Results Component Value Reference Range Notes UA Without Micro-[place], [place] - [id number] Reviewed date:01/03/2025 02:31:55 PM Interpretation: Performing Lab: Notes/Report: Glucose 0 Bili 0 Ketones 0 Sp Rothsay 1.015 Blood +- pH 6.0 Protein 1+ Urobili 0 Nitrites 0 Leukocytes 3+ Culture Urine [id number] Reviewed date:01/06/2025 09:18:29 AM Interpretation: Performing Lab: Notes/Report: Culture Urine BARRY Sheridan Culture Urine t: Culture Urine Culture Urine Accessio [id number] Culture Urine n: Culture Urine Microbiology Culture Urine PROCEDURE: Culture U rine [O1] Culture Urine SOURCE: Urine BODY SITE: Culture Urine COLLECTED DATE/TIME: 01/03/2025 14:59 PRODUCT MGR RECEIVED DATE/TIME: 01/03/2025 21:15 PRODUCT MGR Culture Urine START DATE/TIME: 01/03/2025 21:15 PRODUCT MGR FREE TEXT SOURCE: Culture Urine PRELIMINARY REPORT Culture Urine Preliminary Report [] Culture Urine Verified Date/Time: 01/06/2025 07:11 PRODUCT MGR Culture Urine >100,000 cfu/ml. Gra m Negative Rods Culture Urine Identification and JAMES to follow Culture Urine Order Comments Culture Urine O1: Culture Urine (Gisselle guerra Urine [id number]) Culture Urine Diagnosis Descriptio n: Unspecified abnormal findings in urine REASON FOR VISIT 6m f/u w ua and pvr Medications Medication SIG (Take, Route, Frequency, Duration) Notes Start Date End Date Status Metoprolol Succinate 25 MG Capsule ER 24 Hour Sprinkle 1 capsule Orally Once a day Active Methenamine Hippurate 1 GM Tablet TAKE 1 TABLET BY MOUTH TWICE DAILY Oral; Duration: 30 Days Active HYDROcodone-Acetaminop hen 10-325 MG Tablet 1 tablet Orally every 6 hrs; Duration: 30 days As needed Not to exceed 4 per day Fill on 12/13/2024 12/07/2024 01/12/2025 Active Escitalopram Oxalate 10 MG Tablet 1 tablet Orally Once a day Active tiZANidine HCl 4 MG Tablet 1 tablet at bedtime as needed Orally Once a day Active Atorvastatin Calcium 20 MG Tablet Oral; Duration: 30 Days Active amLODIPine Besylate 10 MG Tablet 1 tablet Orally Once a day Active ALPRAZolam 1 MG Tablet Oral; Duration: 3 0 Days Active Tamsulosin HCl 0.4 MG Capsule TAKE 2 CAPSULES BY MOUTH AT BEDTIME FOR urinary retention Oral; Duration: 90 Days Unknown Social History Tobacco Use: Social History Observation Description Date Details (start date - stop date) Never Smoker NA - NA Social History Tobacco Use: Social Info Question Answer Notes Tobacco Control (Standard) Tobacco use: Nonsmoker Section Notes: audi caffeine audi alcohol Vital Signs Temperature 98.1 degrees Fahrenheit 01/04/20 25 Blood pressure systolic 112 mm Hg 01/04/20 25 Blood pressure diastolic 65 mm Hg 025 Heart Rate 50 /min 01/03/2025 Height 68.00 in 01/03/2025 Weight 207.4 lbs 01/03/2025 BMI 31.53 kg/m2 01/03/2025 Height-cm 172.72 cm 01/03/2025 Weight-kg 94.08 kg 01/03/2025 Encounters Encounter Location Date Provider Diagnosis [facility] [address] [place] [address] [address] [place] [address] 01/03/2025 Adrianne Simmons Urethral stricture unspecified N35.919 ; Self-catheterizes urinary bladder Z78.9 ; History of UTI Z87.440 ; Urinary retention R33.9 and Unspecified abnormal findings in urine R82.90 Assessments Encounter Date Diagnosis (ICD Code) Assessment Notes Treatment Notes Treatment Clinical Notes Section Notes 01/03/2025 Urethral stricture unspecified (ICD-10 - N35.919) 01/03/2025 Self-catheterize s urinary bladder (ICD-10 - Z78.9) 01/03/2025 History of UTI (ICD-10 - Z87.440) 01/03/2025 Urinary retention (ICD-10 - R33.9) 01/03/2025 Unspecified abnormal findings in urine (ICD-10 - R82.90) 01/03/2025 Other CONTINUE TO CATH EVERY OTHER DAY TO MAINTAIN PATENCY OF STRICTURE MONITOR FOR S/S OF UTI AND REPORT TO CLINIC IF SYMPTOMS ARISE IF YOU FEEL YOU ARE NOT EMPTYING PLEASE CONTACT OFFICE CULTURE URINE FOLLOW UP IN 6 MONTHS WITH UA Plan Of Treatment Treatment Notes Assessment Notes Other CONTINUE TO CATH EVERY OTHER DAY TO MAINTAIN PATENCY OF STRICTURE MONITOR FOR S/S OF UTI AND REPORT TO CLINIC IF SYMPTOMS ARISE IF YOU FEEL YOU ARE NOT EMPTYING PLEASE CONTACT OFFICE CULTURE URINE FOLLOW UP IN 6 MONTHS WITH UA Next Appt Details Follow Up: 6 Months, Reason: SEE OTHER Provider Name:Tonny Mcclellan, 1 03/14/2024 01:40:00 PM, [address] [place], [address], Provider Name:Adrianne Teixeira, 07/05/2025 02:00:00 PM, [address] , [address], [address], History and Physical Notes * Examination Category Sub-Category Detail Notes Category Not es General Examination GENERAL APPEARANCE: pleasant, in n o acute distress HEAD: normocephalic LUNGS: normal respiratory e ffort. PSYCH: alert, oriented, aff ect normal. Progress Notes * Barry SILVADOB: [birth year] (79 yo M)Acc No.[id number]:01/03/2025 Progress Notes Patient: Sawyer akhtar Barry Provider: ALESHA Hernandez :1945 A ge:79 Y S ex:Male Date:01/03/2025 Address:[address] [place] [address], [id number] Pcp:Yovani Carter MD Check In:01:46 PM CSTCheck O ut:02:43 PM PRODUCT MGR Subjective: * Chief Complaints: * 6 m f/u w ua and pvr * HPI: P rovider Note: 79-year-old male presents to clinic for follow-up Last seen June 2024 Chief complainturinary retention, history of urethral stricture Patient has history ofurethral dilation and King catheter placement in December 2022 Patient does have tocath about every 3 days At last appointment he was told he may have a UTI He was struggling withtight foreskin, he has been given triamcinolone in the past to help with that Patient uses14 Lao straight caths, has been cathing every other day Was positive for ESBL positive E. coli at last appointment, went ahead and treated him for this How often cathing? every 2-3 days, using 14 malawian straight caths Do you have enough catheters? good catheters Any UTIs since last visit? No, UTIs since last one. * ROS: G eneral - Multi System: Constitutional D enies, fever, chills,. * Medical History: High Blood Pressure Arthritis Constipation Kidney infection Medical History Verified * Surgical History: No Surgical History documented. Surgical History verified. * Hospitalization/Major Diagno stic Procedure: No Hospitalization Documented. Hospitalization Verified. * Family History: M other: PRN - Mother: :: Hypertension,,known absent . F amily History Verified.. family history of diabetes, cancer. * Social History: T obacco Use: T obacco Control (Standard) T obacco use: N onsmoker S ocial History Verified. d enise caffeine audi alcohol. * Medications: T akingALPRAZolam 1 MG Tablet Oral amLODIPine Besylate 10 MG Tablet 1 tablet Orally Once a day Atorvastatin Calcium 20 MG Tablet Oral Escitalopram Oxalate 10 MG Tablet 1 tablet Orally Once a day HYDROcodone-Acetaminophen 10-325 MG Tablet 1 tablet Orally every 6 hrs As needed Not to exceed 4 per day, stop date 01/12/2025, Notes to Pharmacist: Fill on 12/13/2024Methenamine Hippurate 1 GM Tablet TAKE 1 TABLET BY MOUTH TWICE DAILY Oral Metoprolol Succinate 25 MG Capsule ER 24 Hour Sprinkle 1 capsule Orally Once a day tiZANidine HCl 4 MG Tablet 1 tablet at bedtime as needed Orally Once a day Taking ALPRAZolam 1 MG Tablet Oral Taking amLODIPine Besylate 10 MG Tablet 1 tablet Orally Once a day Taking Atorvastatin Calcium 20 MG Tablet Oral Taking Escitalopram Oxalate 10 MG Tablet 1 tablet Orally Once a day Taking HYDROcodone-Acetaminophen 10-325 MG Tablet 1 tablet Orally every 6 hrs As needed Not to exceed 4 per day, stop date 01/12/2025, Notes to Pharmacist: Fill on 12/13/2024Taking Methenamine Hippurate 1 GM Tablet TAKE 1 TABLET BY MOUTH TWICE DAILY Oral Taking Metoprolol Succinate 25 MG Capsule ER 24 Hour Sprinkle 1 capsule Orally Once a day Taking tiZANidine HCl 4 MG Tablet 1 tablet at bedtime as needed Orally Once a day UnknownTamsulosin HCl 0.4 MG Capsule TAKE 2 CAPSULES BY MOUTH AT BEDTIME FOR urinary retention Oral Medication List reviewed and reconciled with the patientUnknown Tamsulosin HCl 0.4 MG Capsule TAKE 2 CAPSULES BY MOUTH AT BEDTIME FOR urinary retention Oral Medication List reviewed and reconciled with the patient * Allergies: B actrim: Reaction 1:Dizziness - Allergy - Onset Date 02/16/2023enicillins: Allergy - Onset Date 11/10/2022yesAllergies Verified. Objective: * Vitals: H t: 68.00 in, Wt:207.4lbs, Wt-k.08 kg, BMI:31.53Index, Temp:98.1F, BP:112/65mm Hg, HR:50/min, Ht-cm: 172.72 cm. * P ast Orders: L ab:UA Without Micro-Auto, Machine - [id number] (Order Date - 01/03/2025) (Collection Date & Time - 01/03/2025) Value Reference Range Glucose 0 Bili 0 Ketones 0 Sp Rothsay 1.015 Blood +- pH 6.0 Protein 1+ Urobili 0 Nitrites 0 Leukocytes 3+ P rocedure:PVR (Post Void Residual) (Order Date - 01/04/2024) (Performed Date - 01/04/2024) Value Reference Range Measurement 14 mL * Examination: G eneral Examination: GENERAL APPEARANCE: p luis eduardo, in no acute distress. HEAD: n ormocephalic. LUNGS: n ormal respiratory effort. PSYCH: a lert, oriented, affect normal.. ? Assessment: * Assessment: 1. U rethral stricture unspecified - N35.919 (Primary) 2 . S elf-catheterizes urinary bladder - Z78.9 3 . H istory of UTI - Z87.440 4 .?Urinary retention - R33.9 5 . U nspecified abnormal findings in urine - R82.90? Plan: * Treatment: Value Reference Range G lucose 0 * B anne marie 0 * K etones 0 * S p Rothsay 1.015 * B lood +- * p H 6.0 * P rotein 1+ * U robili 0 * N itrites 0 * L eukocytes 3+ 2.?Unspecified abnormal findings in urine?LAB: Culture Urine [id number]* Value Reference Range C ulture Urine BARRY Sheridan - * This lab was reviewed by Taj Simmons on 01/06/2025 at 09:18 AM PRODUCT MGR 3.?Others? Notes: CONTINUE TO CATH EVERY OTHER DAY TO MAINTAIN PATENCY OF STRICTURE MONITOR FOR S/S OF UTI AND REPORT TO CLINIC IF SYMPTOMS ARISE IF YOU FEEL YOU ARE NOT EMPTYING PLEASE CONTACT OFFICE? CULTURE URINE FOLLOW UP IN 6 MONTHS WITH UA?? * Procedure Codes: 8 1003 URINALYSIS, AUTO, W/O SCOPE, Modifiers: QW 3074F SYST BP LT 130 MM [id number] DIAST BP < 80 MM HG * Follow Up: 6 Months (Reason: SEE OTHER) Billing Information: * Visit Code: 56542 Office Visit, Est Pt., Level 4. * Procedure Codes: 15866 URINALYSIS, AUTO, W/O SCOPE. Modifiers: QW 3074F SYST BP LT 130 MM HG. 3078F DIAST BP < 80 MM HG. * UCT MGR Sign off status: Completed true * Provider: ALESHA Hernandez Date: 03/05/2024 Generated for Jaclyn kelly/Apolinar/Mark on: 03/08/2024 12:34 PM PRODUCT MGR
--- OUTSIDE RECORDS SUMMARY | 2025-01-03 23:59 | XMS_ITS | Continuity of Care Document ---
Author Organization [facility] Address [address] [place] [address], [place] [address]- Care Team Providers Care Dive Master Name Role Phone Mee aNtarajan Primary Care Physician Encounter [facility] Financial Number [id number] Date(s): 01/03/25 - 01/03/[address] [place] [address]- [place] Encounter Diagnosis Unspecified abnormal findings in urine(Final) - Discharge Disposition: Home:Self-Care Attending Physician: Adrianne Simmons APRN Admitting Physician: Adrianne Simmons APRN Encounter Type: Non Patient Allergies, Adverse Reactions, Alerts Substance Criticality Severity Reaction Reaction Severity Status penicillin Active Bactrim Hallucinations Activ e Assessment and Plan Diagnostic Tests Pending * Culture Urine 01/03/25 Medications acetaminophen-hydrocodone 325 mg-10 mg oral tablet 1 TAB, PO, TID, PRN for Pain, 0 Refill(s) Start Date: 01/13/23 Status: Ordered Repeat number: 1 amLODIPine 10 mg oral tablet 10 MG, = 1 TAB, PO, Daily, Tab Start Date: 01/13/23 Status: Ordered Repeat number: 1 aspirin 325 mg oral tablet 325 MG, = 1 TAB, PO, Daily, Tab Start Date: 01/13/23 Status: Ordered Repeat number: 1 fluvoxaMINE 50 mg oral tablet 50 MG, = 1 TAB, PO, BID, Tab Start Date: 01/13/23 Status: Ordered Repeat number: 1 lisinopril 20 mg oral tablet 20 MG, = 1 TAB, PO, Daily, Tab Start Date: 01/13/23 Status: Ordered Repeat number: 1 methenamine hippurate 1 g oral tablet 1 GM, = 1 TAB, PO, BID, Tab Start Date: 01/13/23 Status: Ordered Repeat number: 1 metoprolol tartrate 25 mg oral tablet 25 MG, = 1 TAB, PO, Daily Start Date: 01/13/23 Status: Ordered Repeat number: 1 Vitamin C 1000 mg oral tablet 1,000 MG, = 1 TAB, PO, Daily, Tab Start Date: 01/13/23 Status: Ordered Repeat number: 1 Problem List Condition Confirmation Course Effective Dates Status Health St atus Informant HTN - Hypertension Confirmed Active pat ient OCD - Obsessive-compulsiv e disorder Confirmed Active patient Procedures Procedure Date Related Diagnosis Body Site Status Procedure 1 01/14/23 Completed Cholecystectomy Completed 1urethral dilation Social History Social History Type Response Smoking Status Never used tobacco entered on: 01/16/23 Sex Male Sex Representation Male (finding) Patient Care team information Care Team Personnel Name: Delgado ODOM, Mee Parra Position: P4 Physician Member Role: Primary Care Physician Address: [address] [place] [address] [place], [place] [address] Telecom: Care Team Related Persons Name: CHER ELAINE Insurance Providers Guarantor name: BARRY CASTANEDA [employer]) Plan Information #: 2 Payer: [place]ICAID [place] Member Number: [id number] Policy Number: NA Group Number: NA Payer Identifier: NA Health Plan Information #: 1 Payer: MEDICARE [facility] Member Number: [id number] Policy Number: NA Group Number: NA Payer Identifier: NA
--- OUTSIDE RECORDS SUMMARY | 2025-01-06 12:34 | XMS_ITS | Encounter Summary ---
Author Organization [facility] Address [address] [place] [address] Phone Care Team Providers Care Embroidery Machine Operator Name Role Phone Mey Garnica MD Primary Care Provider [phone] Encounter Details Date Type Department Care Team (Late st Contact Info) Description 02/28/2019 [facility] [address] [place] [address] Serum creatinine raised Social History Tobacco Use Types Packs/Day Years Used Date Smoking Tobacco: Never Assessed Sex and Gender Information Value Date Recorded Sex Assigned at Not on file Legal Sex Male 1:06 PM EST Gender Identity Not on file Sexual Orientation Not on file documented as of this encounter Plan of Treatment Not on file documented as of this encounter Visit Diagnoses Diagnosis Serum creatinine raised documented in this encounter Care Teams Embroidery Machine Operator Relationship Specialty Start Date End Date Mey Garnica MD [address] [place] [address] PCP - General Family Medicine 04/13/19 documented as of this encounter
--- OUTSIDE RECORDS SUMMARY | 2025-01-06 12:34 | XMS_ITS | Clinical Summary ---
Author Organization [facility] Address [address] [place] [address] Phone Care Team Providers Care Veterinary Receptionist Name Role Phone Mey Garnica MD Primary Care Provider [phone] Allergies Active Allergy Reactions Criticality Noted Date Comments Penicillins High 04/24/2019 Medications lisinopril (PRINIVIL,ZESTR IL) 10 MG tablet Take 10 mg by mouth 1 (one) time each day Active ALPRAZolam (XANAX) 1 MG tablet 1 mg Take 2 tablets by mouth at bedtime Active metoprolol tartrate (LOPRESSOR) 25 MG tablet 25 mg Take 2 tablets by mouth twice daily Active apixaban (ELIQUIS) 5 MG tablet Take 5 mg by mouth 2 (two) times a day Active omeprazole (PriLOSEC) [address] capsule Take 20 mg by mouth 1 (one) time each day Do not crush or chew. Active PARoxetine (PAXIL) 20 MG tablet Take 20 mg by mouth 1 (one) time each day in the morning Active mirtazapine (REMERON) 15 MG tablet Take 15 mg by mouth every night Active Active Problems Problem Noted Date Diagnosed Date Chronic kidney disease, stage 3 (moderate) 05/01 Hypercalcemia 05/02/2019 Family History Medical History Relation Comments Cancer Brother Dementia Brother Hypertension Brother Hypertension Father Stroke Mother Cancer Sister Relation Status Comments Brother Father Mother Sister Social History Tobacco Use Types Packs/Day Years Used Date Smoking Tobacco: Never Smokeless Tobacco: Never Alcohol Use Standard Drinks/Week Comments Not Currently 0 (1 standard drink = 0.6 oz pur e alcohol) AUDIT-C Answer Date Recorded Q1: How often do you have a drink containing alc ohol? Never 04/26/2019 Average Number of Drinks Not on file 020 Frequency of Binge Drinking Not on file 04/02 Sex and Gender Information Value Date Recorded Sex Assigned at Not on file Legal Sex Male 1:06 PM EST Gender Identity Not on file Sexual Orientation Not on file Last Filed Vital Signs Vital Sign Reading Time Taken Comments Blood Pressure 134/64 08/08/2019 11:21 AM CDT Pulse 60 08/08/2019 11:21 AM CDT Temperature 35.9 C (96.7 F) 08/08/2019 11:21 AM CDT Respiratory Rate - - Oxygen Saturation - - Inhaled Oxygen Concentration - - Weight 99.6 kg (219 lb 9.6 oz) 08/08/2019 11:21 AM CDT Height 175.3 cm (5' 9 ) 08/08/2019 11:21 AM CDT Body Mass Index 32.43 08/08/2019 11:21 AM CDT Plan of Treatment Health Maintenance Due Date Last Done Comments Pneumococcal Vaccine: 50+ Ye ars (1 of 2 - PCV) 06/10/1964 Influenza Vaccine (#1) 2024 Hepatitis B Vaccine Aged Out No longe r eligible based on patient's age to complete this topic Insurance Medicaid [place] ([id number]) [facility] Care Teams Veterinary Receptionist Relationship Specialty Start Date End Date Mey Garnica MD [address] [place] [address] PCP - General Family Medicine 04/13/19
--- OUTSIDE RECORDS SUMMARY | 2025-01-06 12:34 | XMS_ITS | Patient Health Record ---
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 Name Role Phone Yovani Carter MD Primary Care Provider Unavailab andrea MooreTameka rae Unavailable [phone] Dahiana Ramirez Unavailable [phone] Adrianne Simmons Unavailable Yovani Cai Unavailable [phone] Allergies Allergen (clinical drug ingredient) Drug/Non Drug Allergy documented on EMR Reaction Allergy Type Onset Date Status sulfamethoxazole / trimethoprim Bactrim Reaction 1:Dizziness Drug Allergy 02/16/2023 active Substance with penicillin structure and antibacterial mechanism of action (substance) Penicillins Unknown Drug Allergy 11/10/2022 active Results Component Value Reference Range Flag Notes UA Without Micro-Auto, [place] - [id number] Reviewed date:07/03/2024 02:23:42 PM Interpretation: Performing Lab: Notes/Report: Glucose 0 Bili 0 Ketones 0 Sp Essex 1.020 Blood +- pH 6.0 Protein +- Urobili 0 Nitrites + Leukocytes 2+ Culture Urine [id number] Reviewed date:07/12/2024 06:37:21 AM Interpretation: Performing Lab: Notes/Report: Culture Urine Tracey BARRY SILVA Culture Urine t: Culture Urine Culture Urine Access [id number] Culture Urine n: Culture Urine Microbiology Culture Urine PROCEDURE: Culture Urine [O1] Culture Urine SOURCE: Urine BODY SITE: Culture Urine COLLECTED DATE/TIME: 07/03/2024 14:45 CDT RECEIVED DATE/TIME: 07/03/2024 20:20 CDT Culture Urine START DATE/TIME: 07/03/2024 20:20 CDT FREE TEXT SOURCE: Culture Urine FINAL REPORT Culture Urine Final Report [] Culture Urine Verified Date/Time: 07/07/2024 11:27 CDT Culture Urine >100,000 cfu/ml. Escherichia coli (2 morphologies) Culture Urine ATTENTION:This isolate is positive for extended-spectrum beta-lactamase (ESBL+) Culture Urine SUSCEPTIBILITY RESULTS Culture Urine Esccol #2 Culture Urine Antibiotic MDIL MINT Culture Urine Ampicillin Resistant Culture Urine Ampicillin/Sulbactam 16 Intermediate Culture Urine Cefepime 0.25 Susceptible Culture Urine Ceftazidime <=0.5 Susceptible Culture Urine Ceftriaxone 0.5 Susceptible Culture Urine Ciprofloxacin >=4 Resistant Culture Urine ESBL Positive Positive Culture Urine Gentamicin <=1 Susceptible Culture Urine Levofloxacin >=8 Resistant Culture Urine Meropenem <=0.25 Susceptible Culture Urine Nitrofurantoin <=16 Susceptible Culture Urine Piperacillin/Tazobac t am 8 Susceptible Culture Urine Trimethoprim/Sulfa <=20 Susceptible Culture Urine Esccol Culture Urine Antibiotic MDIL MINT Culture Urine Ampicillin 16 Intermediate Culture Urine Ampicillin/Sulbactam 4 Susceptible Culture Urine Cefepime <=0.12 Susceptible Culture Urine Ceftazidime <=0.5 Susceptible Culture Urine Ceftriaxone <=0.25 Susceptible Culture Urine Ciprofloxacin >=4 Resistant Culture Urine ESBL Negative Negative Culture Urine Gentamicin <=1 Susceptible Culture Urine Levofloxacin >=8 Resistant Culture Urine Meropenem <=0.25 Susceptible Culture Urine Nitrofurantoin <=16 Susceptible Culture Urine Piperacillin/Tazobac t am <=4 Susceptible Culture Urine Trimethoprim/Sulfa <=20 Susceptible Culture Urine Order Comments Culture Urine O1: Culture Urine (Culture Urine [id number]) Culture Urine Diagnosis Description: Unspecified abnormal findings in urine Urine Drug Screen (cup read) - [id number] Reviewed date:11/01/2024 02:12:07 PM Interpretation: Performing Lab: Notes/Report: BZO + OPI + Urine Confirmation Panel (in strument) - [id number] Reviewed date:11/07/2024 01:22:02 PM Interpretation: Performing Lab: Notes/Report: 6-Acetylmorphine 0 <6 ng/mL N This shamar t was developed and its performance characteristics determined by [facility]. It has not been cleared or approved by the U.S. Food and Drug Administration. 7-Aminoclonazepam 0 <60 ng/mL N This te st was developed and its performance characteristics determined by [facility]. It has not been cleared or approved by the U.S. Food and Drug Administration. Alprazolam 359 <60 ng/mL H This test was developed and its performance characteristics determined by [facility]. It has not been cleared or approved by the U.S. Food and Drug Administration. Amphetamine 0 <75 ng/mL N This test was developed and its performance characteristics determined by [facility]. It has not been cleared or approved by the U.S. Food and Drug Administration. aOH-Alprazolam 217 <60 ng/mL H This test was developed and its performance characteristics determined by [facility]. It has not been cleared or approved by the U.S. Food and Drug Administration. Buprenorphine 0.0 <7.5 ng/mL N This test w as developed and its performance characteristics determined by [facility]. It has not been cleared or approved by the U.S. Food and Drug Administration. Norbuprenorphine 0.0 <37.5 ng/mL N This te st was developed and its performance characteristics determined by [facility]. It has not been cleared or approved by the U.S. Food and Drug Administration. Carisoprodol 0 <75 ng/mL N This test wa s developed and its performance characteristics determined by [facility]. It has not been cleared or approved by the U.S. Food and Drug Administration. Codeine 0 <75 ng/mL N This test was developed and its performance characteristics determined by [facility]. It has not been cleared or approved by the U.S. Food and Drug Administration. EDDP 0 <75 ng/mL N This test was developed and its performance characteristics determined by [facility]. It has not been cleared or approved by the U.S. Food and Drug Administration. Fentanyl 0 <6 ng/mL N This test was developed and its performance characteristics determined by [facility]. It has not been cleared or approved by the U.S. Food and Drug Administration. Hydrocodone 2340 <75 ng/mL H This test was developed and its performance characteristics determined by [facility]. It has not been cleared or approved by the U.S. Food and Drug Administration. Hydromorphone 227 <75 ng/mL H This test w as developed and its performance characteristics determined by [facility]. It has not been cleared or approved by the U.S. Food and Drug Administration. Lorazepam 0 <60 ng/mL N This test was developed and its performance characteristics determined by [facility]. It has not been cleared or approved by the U.S. Food and Drug Administration. MDMA 0 <75 ng/mL N This test was developed and its performance characteristics determined by [facility]. It has not been cleared or approved by the U.S. Food and Drug Administration. Meperidine 0.0 <37.5 ng/mL N This test was developed and its performance characteristics determined by [facility]. It has not been cleared or approved by the U.S. Food and Drug Administration. Meprobamate 0 <75 ng/mL N This test was developed and its performance characteristics determined by [facility]. It has not been cleared or approved by the U.S. Food and Drug Administration. Methamphetamine 0 <75 ng/mL N This test was developed and its performance characteristics determined by [facility]. It has not been cleared or approved by the U.S. Food and Drug Administration. Methadone 0 <75 ng/mL N This test was developed and its performance characteristics determined by [facility]. It has not been cleared or approved by the U.S. Food and Drug Administration. Morphine 0 <75 ng/mL N This test was developed and its performance characteristics determined by [facility]. It has not been cleared or approved by the U.S. Food and Drug Administration. Nordiazepam 0 <60 ng/mL N This test was developed and its performance characteristics determined by [facility]. It has not been cleared or approved by the U.S. Food and Drug Administration. Norfentanyl 0 <6 ng/mL N This test was developed and its performance characteristics determined by [facility]. It has not been cleared or approved by the U.S. Food and Drug Administration. Normeperidine 0.0 <37.5 ng/mL N This test was developed and its performance characteristics determined by [facility]. It has not been cleared or approved by the U.S. Food and Drug Administration. O-desmethyltramadol 0 <75 ng/mL N This test was developed and its performance characteristics determined by [facility]. It has not been cleared or approved by the U.S. Food and Drug Administration. Oxazepam 0 <60 ng/mL N This test was developed and its performance characteristics determined by [facility]. It has not been cleared or approved by the U.S. Food and Drug Administration. Oxycodone 8.1 <37.5 ng/mL N This test was developed and its performance characteristics determined by [facility]. It has not been cleared or approved by the U.S. Food and Drug Administration. Oxymorphone 0 <75 ng/mL N This test was developed and its performance characteristics determined by [facility]. It has not been cleared or approved by the U.S. Food and Drug Administration. Phencyclidine 0.0 <7.5 ng/mL N This test w as developed and its performance characteristics determined by [facility]. It has not been cleared or approved by the U.S. Food and Drug Administration. Tapentadol 10.7 <37.5 ng/mL N This test was developed and its performance characteristics determined by [facility]. It has not been cleared or approved by the U.S. Food and Drug Administration. Temazepam 0 <60 ng/mL N This test was developed and its performance characteristics determined by [facility]. It has not been cleared or approved by the U.S. Food and Drug Administration. Tramadol 4 <75 ng/mL N This test was developed and its performance characteristics determined by [facility]. It has not been cleared or approved by the U.S. Food and Drug Administration. Norhydrocodone 4252 <75 ng/mL H This test was developed and its performance characteristics determined by [facility]. It has not been cleared or approved by the U.S. Food and Drug Administration. Noroxycodone 0 <38 ng/mL N This test wa s developed and its performance characteristics determined by [facility]. It has not been cleared or approved by the U.S. Food and Drug Administration. Pregabalin 0 <225 ng/mL N This test was developed and its performance characteristics determined by [facility]. It has not been cleared or approved by the U.S. Food and Drug Administration. Gabapentin 0 <225 ng/mL N This test was developed and its performance characteristics determined by [facility]. It has not been cleared or approved by the U.S. Food and Drug Administration. Benzoylecgonine 0.0 <37.5 ng/mL N This shamar t was developed and its performance characteristics determined by [facility]. It has not been cleared or approved by the U.S. Food and Drug Administration. 4-Hydroxy Xylazine 0 <25 ng/mL N This t est was developed and its performance characteristics determined by [facility]. It has not been cleared or approved by the U.S. Food and Drug Administration. Urine Drug Screen (cup read) - [id number] Reviewed date:12/07/2024 04:17:58 PM Interpretation: Performing Lab: Notes/Report: BZO + OPI + UA Without Micro-Auto, [place] - [id number] Reviewed date:01/03/2025 02:31:55 PM Interpretation: Performing Lab: Notes/Report: Glucose 0 Bili 0 Ketones 0 Sp Essex 1.015 Blood +- pH 6.0 Protein 1+ Urobili 0 Nitrites 0 Leukocytes 3+ Culture Urine [id number] Reviewed date:01/06/2025 09:18:29 AM Interpretation: Performing Lab: Notes/Report: Culture Urine BARRY Sheridan Culture Urine t: Culture Urine Culture Urine Accessio [id number] Culture Urine n: Culture Urine Microbiology Culture Urine PROCEDURE: Culture Urine [O1] Culture Urine SOURCE: Urine BODY SITE: Culture Urine COLLECTED DATE/TIME: 01/03/2025 14:59 SUPERVISOR WET POUR RECEIVED DATE/TIME: 01/03/2025 21:15 SUPERVISOR WET POUR Culture Urine START DATE/TIME: 01/03/2025 21:15 SUPERVISOR WET POUR FREE TEXT SOURCE: Culture Urine PRELIMINARY REPORT Culture Urine Preliminary Report [] Culture Urine Verified Date/Time: 01/06/2025 07:11 SUPERVISOR WET POUR Culture Urine >100,000 cfu/ml. Gra m Negative Rods Culture Urine Identification and JAMES to follow Culture Urine Order Comments Culture Urine O1: Culture Urine (Culture Urine [id number]) Culture Urine Diagnosis Description: Unspecified abnormal findings in urine Tox Results Reviewed date:11/07/2024 01:30:26 PM Interpretation: Performing Lab: Notes/Report: Reason For Referral Reason osteoarthritis invol ving multiple joints on both sides of body Diagnosis 1 Chronic pain syndrom e (G89.4) Referring Provider First Name Yovani Referring Provider Last Name Emma Referring Provider Speciality Family Med icine Referred Organization [email or web address] Referred Provider Gemini Domingo Referred Address [address] [place] [address],[place],[phone], Referred Provider Specialty Pain Medicin e General Notes Gina Frey [place] 12:31:51 PM >mailed npp, patient is scheduled Referral Priority Routine Medications Medication SIG (Take, Route, Frequency, Duration) [...] 1 tablet Orally Once a day Active Atorvastatin Calcium 20 MG Tablet Oral; Duration: 30 Days Active amLODIPine Besylate 10 MG Tablet 1 tablet Orally Once a day Active ALPRAZolam 1 MG Tablet Oral; Duration: 3 0 Days Active Tamsulosin HCl 0.4 MG Capsule TAKE 2 CAPSULES BY MOUTH AT BEDTIME FOR urinary retention Oral; Duration: 90 Days Unknown tiZANidine HCl 4 MG Tablet 1 tablet at bedtime as needed Orally Once a day Active Social History Tobacco Use: Social History Observation Description Date Details (start date - stop date) Never Smoker NA - NA Social History Tobacco Use: Social Info Question Answer Notes Tobacco Control (Standard) Tobacco use: Nonsmoker Additional Details Category Social Info Options Details Miscellaneous: Sexually active: no Sexual abuse: no Drugs/Alcohol: Do you smoke marijuana? De nies Do you drink alcohol? No Migrated Social History Migrated Social History History of tobacco use : , Smoking Status : Never used tobacco Section Notes: audi caffeine audi alcohol audi caffeine audi alcohol audi caffeine audi alcohol audi caffeine audi alcohol audi caffeine audi alcohol audi caffeine audi alcohol audi caffeine audi alcohol audi caffeine audi alcohol audi caffeine audi alcohol Problems Problem Type SNOMED Code ICD Code Onset Dates Problem Status W/U Status Risk Notes Problem Chronic pain syndrome (238024871) Chronic pain syndrome (G89.4) Active confirmed Problem Lumbosacral spondylosis without myelopathy (82487887) Other spondylosis with radiculopathy, lumbar region (M47.26) Active confirmed Problem Lumbar radiculopathy (919979582) Lumbar radiculopathy (M54.16) Active confirmed Problem Lumbar spondylosis (349016411) Lumbar spondylosis (M47.816) Active confirmed Problem History of urinary tract infection (5783626471378) History of UTI (Z87.440) Active confirmed Problem Intermittent self-catheterize (regime/therapy) (849507364) Self-catheterizes urinary bladder (Z78.9) Active confirmed Problem Abnormal gait (90324094) Abnormality of gait and mobility (R26.9) Active confirmed Problem Urethral stricture (disorder) (08092053) Urethral stricture unspecified (N35.919) Active confirmed Problem Memory loss (19264937) Memory loss (780.93) 018 Active confirmed Mac-985 911- Problem Dizziness (941157931) Dizziness (780.4) 018 Active confirmed Mac-985 911- Problem Fatigue (30016277) Fatigue (780.79) 018 Active confirmed Mac-985 911- Problem Low back pain (187520866) Lower back pain (724.2) 018 Active confirmed Mac-985 911- Problem Essential hypertension (39223667) Essential hypertension (401.1) 018 Active confirmed Mac-985 911- Problem Cough (96624180) Cough (786.2) 018 Problem resolved confirmed Mac-985 911- Problem Diarrhea (20399508) Diarrhea (787.91) 018 Problem resolved confirmed Mac-985 911- Problem Depression (474317794) Depression (311) 018 Problem resolved confirmed Mac-985 911- Problem Lumbosacral spondylosis without myelopathy (89425759) 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 Problem resolved confirmed Mac-985 911- Problem Onychomycosis caused by dermatophyte (458180541) Toe onychomycosis (110.1) 018 Problem resolved confirmed Mac-985 911- Problem Mass in head or neck (239832514) Neck lump (784.2) 018 Problem resolved confirmed Mac-985 911- Problem 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) Other abnormal findings on blood examination (790.99) 018 Problem resolved confirmed Mac-985 911- Problem Sore throat (213876989) Sore Throat (462) 018 Problem resolved confirmed Mac-985 911- Problem Hand pain (38403896) Hand pain (729.5) 018 Problem resolved confirmed Mac-985 911- Problem Bradycardia (32167274) Bradycardia (427.89) 018 Problem resolved confirmed Mac-985 911- Problem Emphysema (39736460) Emphysema, other (492.8) 018 Problem resolved confirmed Mac-985 911- Problem Onychomycosis caused by dermatophyte (246924713) Fungal nail infection (110.1) 018 Problem resolved confirmed Mac-985 911- Vital Signs Heart Rate 50 /min 01/03/2025 Temperature 98.1 degrees Fahrenheit 01/03/2025 Blood pressure diastolic 65 mm Hg 01/03/2025 Height-cm 172.72 cm 01/03/2025 Weight-kg 94.08 kg 01/03/2025 Height 68.00 in 01/03/2025 Blood pressure systolic 112 mm Hg 01/03/2025 Weight 207.4 lbs 01/03/2025 BMI 31.53 kg/m2 01/03/2025 Encounters Encounter Location Date Provider Diagnosis [facility] [place] [address] [place] [phone] 12/07/2024 Tameka Gan Chronic pain syndrome G89.4 ; Other spondylosis with radiculopathy, lumbar region M47.26 ; Left shoulder pain, unspecified chronicity M25.512 ; longterm (current) use of opiate analgesic Z79.891 and Abnormality of gait and mobility R26.9 [facility] [place] [address] [place] [address] 11/01/2024 Yovani Cai Chronic pain syndrome G89.4 ; Other spondylosis with radiculopathy, lumbar region M47.26 ; Left shoulder pain, unspecified chronicity M25.512 ; Abnormality of gait and mobility R26.9 ; longterm (current) use of opiate analgesic Z79.891 ; Lumbar spondylosis M47.816 and Lumbar radiculopathy M54.16 [facility] [address] [place] [address] [place] [address], [place] [address] 01/03/2025 Adrianne Simmons Urethral stricture unspecified N35.919 ; Self-catheterizes urinary bladder Z78.9 ; History of UTI Z87.440 ; Urinary retention R33.9 and Unspecified abnormal findings in urine R82.90 [facility] [address] [place] [address] [place] [address], [place] [address] 07/03/2024 Adrianne Iris Self-catheterizes urinary bladder Z78.9 ; Urethral stricture unspecified N35.919 ; History of UTI Z87.440 and Unspecified abnormal findings in urine R82.90 [facility] [place] [address] [place] [address] 09/20/2024 Yovani Krafft Chronic pain syndrome G89.4 ; Abnormality of gait and mobility R26.9 ; Other spondylosis with radiculopathy, lumbar region M47.26 ; claims assistant (current) use of opiate analgesic Z79.891 ; Lumbar spondylosis M47.816 and Lumbar radiculopathy M54.16 [facility] [place] [address] [place] [address] 08/09/2024 Yovani Danielsfft Chronic pain syndrome G89.4 ; Abnormality of gait and mobility R26.9 ; Lumbar radiculopathy M54.16 ; Other spondylosis with radiculopathy, lumbar region M47.26 ; claims assistant (current) use of opiate analgesic Z79.891 and Lumbar spondylosis M47.816 [facility] [address] [place] [address] 07/07/2024 Ramirez Talbot [facility] [address] [place] [address] 07/03/2024 Ramirez Talbot [facility] [address] [place] [address] [place] [address], [place] [address] 06/30/2024 Ramirez Talbot Urethral stricture unspecified N35.919 and History of UTI Z87.440 [facility] [address] [place] [address] 06/30/2024 Ramirez Tomassay [facility] [address] [place] [address] 06/30/2024 Ramirez Tomassay [facility] [address] [place] [address] 06/30/2024 Ramirez Tomassay [facility] [address] [place] [address] 01/03/2025 Adrianne Simmons [facility] [place] [address] [place] [address] 12/07/2024 Yovani Cai Lumbar radiculopathy M54.16 [facility] [place] [address] [facility] [place] [address] 08/17/2024 Yovani Cai Chronic pain syndrome G89.4 Assessments Encounter Date Diagnosis (ICD Code) Assessment Notes Treatment Notes Treatment Clinical Notes Section Notes 06/30/2024 Urethral stricture unspecified (ICD-10 - N35.919) 07/03/2024 Self-catheterizes urinary bladder (ICD-10 - Z78.9) PLAN - Continue cathing as needed, or if multimedia coordinator at least 4-6 times a day, let us know if you need us to order supplies and with which company 07/03/2024 Urethral stricture unspecified (ICD-10 - N35.919) If patient has issues urinating, or feels he cannot get a catheter through, please call the office or go to the ER for assistance 08/09/2024 Chronic pain syndrome (ICD-10 - G89.4) I had a nice visit with the patient today regarding his chronic pain issues. Based on his history and PE, the worst of his symptoms appear consistent with lumbar spondylosis with radiculitis. Certainly, he's been on very high-dose opioids for a long time, which presents its challenges. He's also on chronic benzodiazepines and has been for many years as well. He's going to speak with Dr. Carter regarding this, and he says they've already started to come up with a plan. So hopefully, he can work his way away from the Xanax. Outside of that, he is open to cutting back on his hydrocodone to some degree, so he will utilize his remaining pills and prescriptions to take it back to no more than 5 per day over the next 6 weeks. We will see him back at that point and proceed accordingly. 08/09/2024 Abnormality of gait and mobility (ICD-10 - R26.9) 08/17/2024 Chronic pain syndrome (ICD-10 - G89.4) 09/20/2024 Chronic pain syndrome (ICD-10 - G89.4) I had a nice visit with the patient today regarding his chronic pain issues. He says he's down to taking 6 tablets per day of the hydrocodone and thought that it was what we had discussed. I reminded him that it was 5 tablets per day, and then the plan was to have him transition to 4 tablets per day. Fortunately, he has 79 tablets left, so he will utilize those to get down to 5 tablets per day, and then my prescription will begin at 4 tablets per day. I also reminded him to continue to work with Dr. Ross, going down on the Xanax. We will see him back in about 5 weeks and proceed accordingly. The patient continues with chronic pain requiring treatment to help restore function and improve quality of life. Risks of opioid therapy as well as interaction of opioids with alcohol, illicit drugs, muscle relaxers, and other sedative medications are reviewed briefly with patient again today. The patient has trialed all other reasonable treatment options and uses the medication to alleviate pain in order to remain active and rest with less pain. No clinically relevant medication side effects are noted. 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 Patient is advised that best long-term goals include increased activity, core strengthening, proper weight management, coping strategies, avoidance of painful triggers, and targeted interventional therapy. We will see the patient for routine follow up in accordance with all clinic policies. We did remind patient today of current guidelines to decrease opioid when possible. We will continue to stress nonopioid treatment. 09/20/2024 Abnormality of gait and mobility (ICD-10 - R26.9) 11/01/2024 Chronic pain syndrome (ICD-10 - G89.4) I had a nice visit with the patient today regarding his chronic pain issues. He has successfully reduced his hydrocodone use to four times daily, which I was pleased to hear. However, he continues to take Xanax twice daily. He reports using it to help manage stress related to caring for his grandchildren and states he has been on it for over 20 years. The details of how this use has evolved over time remain unclear. The majority of his reported pain is localized to the lumbar spine. We will obtain updated imaging of the lumbar region and plan to review the results at his next visit. We will see him back in one month and proceed accordingly. 11/01/2024 Other spondylosis with radiculopathy, lumbar region (ICD-10 - M47.26) 12/07/2024 Chronic pain syndrome (ICD-10 - G89.4) I had a nice discussion with the patient today regarding his chronic pain complaints. He continues with lower back pain as well as shoulder pain. He did not get his MRI yet stating he has not heard anything. We will check on this for him today. He continues to utilize alprazolam which has been discussed with him. The patient states there is no way he can go without it as he has been taking it for more than 20 years. He states he has read all the stuff about it and he has never had any problems. I did explain the dangers of benzodiazepines and opioids. We will send Narcan for him. I did advise him to get with his PCP to start weaning. He denies any other changes since we last seen him or any untoward side effects of the medication. I did discuss lifestyle modifications as well as a bowel regimen. He will continue his medication at present level and return to clinic in 2 months to monitor for treatment effectiveness and compliance. The patient continues with chronic pain requiring treatment to help restore function and improve quality of life. Risks of opioid therapy as well as interaction of opioids with alcohol, illicit drugs, muscle relaxers, and other sedative medications are reviewed briefly with patient again today. The patient has trialed all other reasonable treatment options and uses the medication to alleviate pain in order to remain active and rest with less pain. No clinically relevant medication side effects are noted. 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 Patient is advised that best long-term goals include increased activity, core strengthening, proper weight management, coping strategies, avoidance of painful triggers, and targeted interventional therapy. We will see the patient for routine follow up in accordance with all clinic policies. We did remind patient today of current guidelines to decrease opioid when possible. We will continue to stress nonopioid treatment. URINE TESTING TODAY; POINT OF SERVICE Urine drug screening will be performed today to monitor compliance with opioid therapy or to serve as a baseline screen for a patient who may be a candidate for opioid therapy in the future, pending UDS results. We will monitor with in-office testing (rapid testing) today and review the results prior to dispensing prescription, as well. Patient has been made aware of this policy. 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 Symptoms: Common symptoms include a strong, persistent urge to urinate, a burning sensation when urinating, cloudy or strong-smelling urine, and pelvic pain. 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 We will monitor with in-office testing (rapid testing) today and review the results prior to dispensing prescription. All positive results will be sent for quantitative analysis to ensure accuracy and quantify amounts. Any expected positive results that return negative will also be sent for quantitative analysis. Any questionable read or any medication we cannot test for in the office confidently will be sent for quantitative analysis, as well. Patient has been made aware of this policy and agrees to abide by our urine testing policy. 08/09/2024 claims assistant (current) use of opiate analgesic (ICD-10 - Z79.891) 07/03/2024 Unspecified abnormal findings in urine (ICD-10 - R82.90) 09/20/2024 Lumbar radiculopathy (ICD-10 - M54.16) 08/09/2024 Lumbar spondylosis (ICD-10 - M47.816) 11/01/2024 Lumbar spondylosis (ICD-10 - M47.816) 01/03/2025 Unspecified abnormal findings in urine (ICD-10 - R82.90) 11/01/2024 Lumbar radiculopathy (ICD-10 - M54.16) 07/03/2024 Other PATIENT WILL FO LLOW UP IN 08/09/2024 Other IJory NCMA, am scribing for Dr. Yovani Cai. I, Dr. Yovani Cai, personally performed the services described in this documentation, as scribed by LORNE Stewart, and it is both accurate and complete. 09/20/2024 Other I, LORNE Stewart, am scribing for Dr. Yovani Cai. I, Dr. Yovani Cai, personally performed the services described in this documentation, as scribed by LORNE Stewart, and it is both accurate and complete. 11/01/2024 Other I, Nicole Recinos, am scribing for Dr. Yovani Cai. I, Dr. Yovani Cai, personally performed the services described in this documentation, as scribed by Nicole Recinos, and it is both accurate and complete. 01/03/2025 Other CONTINUE TO CATH EVERY OTHER DAY TO MAINTAIN PATENCY OF STRICTURE MONITOR FOR S/S OF UTI AND REPORT TO CLINIC IF SYMPTOMS ARISE IF YOU FEEL YOU ARE NOT EMPTYING PLEASE CONTACT OFFICE CULTURE URINE FOLLOW UP IN 6 MONTHS WITH UA Plan Of Treatment Pending Test Test Name Order Date Basic Metabolic Panel (BMP) 57984 2024 MRI Lumbar Spine w/o Cont-[id number] 11/02/19 25 Next Appt Details Provider Name:Tonny Mcclellan, 1 03/14/2024 01:40:00 PM, [address], [place], [address], Provider Name:Adrianne Teixeira, 07/05/2025 02:00:00 PM, [address], [place], [address], Insurance Providers Payer Name Payer Address Payer Phone Subscriber Number Group Number Insured Name Patient Relationship to Insured Coverage Start Date Coverage End Date [facility] Dual Complete [address] [place] [address] [id number] Barry Silva Self - patient is the insured [place] Medicaid [address] [place] [address] [id number] Barry Silva Self - patient is the insured [place] Medicare [address] [address] [place] [address] [id number] Barry Silva Self - patient is the insured Medical (General) History Medical History History ICD Code High Blood Pressure Arthritis constipation kidney infection
--- OUTSIDE RECORDS SUMMARY | 2025-01-06 12:34 | XMS_ITS | Data Portability ---
Author Organization [facility] Bao Guerra [facility] Adbifatah Suarez, [facility] Address [address] [place] [address] Assessment No assessment recorded. Plan of Treatment Reminders Order Date Submit Date Provider Last Modified By Organization Details Last Modified Time Details Appointments None recorded. Lab None recorded. Referral None recorded. Procedures None recorded. Surgeries None recorded. Imaging None recorded. Medication Orders azithromyci n 250 mg tablet 2022 023 [facility], [address], [place], [address], 3 15:12:14 Patient TargetsNo targets recorded. Patient InstructionsNo instructions recorded. Reason for Referral None Reported. Problems Name Problem SNOMED Code Status Onset Date Resolution Date Notes Provider Name and Address Organization Details Recorded Time Atrial fibrillat ion 68132788 Active 2016 atrial fibrillati on; Date: 01/2017; 01/17/2019 3:32PM by Lilia Abel LPN, Office Visit; Promoted; acuity set as *; Not Available [facility] 3 03:15:01 Arthritis 7348022 Active 2018 Arthritis; 01/17/2019 3:32PM by Lilia Abel LPN, Office Visit; Promoted; acuity set as *; Not Available [facility] 3 03:14:59 Hypertens curt disorder 64275165 Active 2018 High blood pressure; 01/17/2019 3:32PM by Lilia Abel LPN, Office Visit; Promoted; acuity set as *; Not Available [facility] 3 03:14:59 Migraine 66485590 Active 2018 Migraine Headache; 01/17/2019 3:32PM by Lilia Abel LPN, Office Visit; Promoted; acuity set as *; Not Available [facility] 3 03:15:00 Chronic back pain 817299539 Active 2018 chronic back problems; 01/17/2019 3:32PM by Lilia Abel LPN, Office Visit; Promoted; acuity set as *; Not Available [facility] 3 03:15:00 Bladder disorders NOS Active 2018 Bladder Problems; 01/17/2019 3:32PM by Lilia Abel LPN, Office Visit; Promoted; acuity set as *; Not Available [facility] 3 03:15:00 Lichen sclerosus Active 2018 lichen sclerosis with phimosis; 01/17/2019 3:32PM by Lilia Abel LPN, Office Visit; Promoted; acuity set as *; Not Available [facility] 3 03:15:00 Anxiety disorder 730160728 Active 2018 Anxiety Disorder; 01/17/2019 3:32PM by Lilia Abel LPN, Office Visit; Promoted; acuity set as *; Not Available [facility] 3 03:15:01 Depressiv e disorder 54970023 Active 2018 Depression ; 01/17/2019 3:32PM by Lilia Abel LPN, Office Visit; Promoted; acuity set as *; Not Available [facility] 3 03:15:01 Problem Notes None recorded. Medical Equipment None Reported. Allergies Allergen ID Allergen Name Allergen Category Reaction Reaction Severity Criticality Documentation Date Start Date Code Code System Note Provider Name and Address Organization Details Recorded Time 07653 penicilli n V potassium medicatio n Not available Not available Not available 09/26/202268182 5 RxNorm Comme nt: Recor ded 01/17 3:32P M by Briana mckeon LPN, Offic e Visit ; Promo jaki; Dominick humphries ce: *; Reaso n: Drug aller gy; ; Not Available [facility] 3 02:26:40 54367 codeine sulfate medicatio n confusion Not available Not available 09/26/2022 02901 RxNorm React ion: melani glover, drows iness ; Comme nt: Recor ded 01/17 3:32P M by Briana mckeon, PERSONNEL CLERK, Offic e Visit ; Kojo pollack; Dominick humphries ce: *; Reaso n: Drug aller gy; ; Not Available [facility] 3 02:26:40 Medications Name Sig Start Date Stop Date Status Note LastModified by Organization Details LastModified Time doxycyclin e hyclate 100 mg capsule TAKE 1 CAPSULE BY MOUTH TWICE DAILY active Not Available Not Available No t Available cetirizine 10 mg tablet two times daily 2018 active as needed for itching; 436; Recorded 9 2:43PM by ALESHA Stuart (Authoriz ed through Sridhar Mays MD), Office Visit; Refill Quantity: 60; Tablet; Not Available Not Available Not Available azithromyc in 250 mg tablet TAKE 2 TABLETS BY MOUTH ON DAY 1, AND THEN TAKE 1 TABLET BY MOUTH ONCE A DAY ON DAY 2 THROUGH DAY 5 active Not Available Not Available No t Available alprazolam 1 mg tablet TAKE 1 TABLET BY MOUTH TWICE DAILY NEEDED FOR anxiety must last 30 days active Not Available Not Available No t Available meloxicam 15 mg tablet TAKE ONE TABLET BY MOUTH EVERY DAY FOR pain active Not Available Not Available No t Available lisinopril 20 mg tablet TAKE ONE TABLET BY MOUTH EVERY DAY active Not Available Not Available No t Available prednisone 20 mg tablet TAKE 2 TABLETS BY MOUTH EVERY DAY for 5 days FOR allergies active Not Available Not Available No t Available amlodipine 5 mg tablet TAKE ONE TABLET BY MOUTH EVERY DAY active Not Available Not Available No t Available ciprofloxa indu 500 mg tablet TAKE 1 TABLET BY MOUTH EVERY TWELVE HOURS active Not Available Not Available No t Available hydrocodon e 10 mg-acetami nophen 325 mg tablet TAKE 1 TO 2 TABLETS BY MOUTH EVERY 4 TO 6 HOURS (max EIGHT / DAY hold within 4 hrs of planned sleep) 30 DAY supply active Not Available Not Available No t Available cyprohepta dine 4 mg tablet TAKE 1 TABLET BY MOUTH AT BEDTIME FOR allergies /nasal drainage active Not Available Not Available No t Available methenamin e hippurate 1 gram tablet TAKE 1 TABLET BY MOUTH TWO TIMES DAILY WITH 1000MG OF VITAMIN C. WITH EACH DOSE active Not Available Not Available No t Available meclizine 25 mg tablet TAKE 1 TABLET BY MOUTH FOUR TIMES DAILY NEEDED FOR dizziness active Not Available Not Available No t Available amlodipine 10 mg tablet TAKE 1 TABLET BY MOUTH EVERY DAY active Not Available Not Available No t Available doxycyclin e monohydrat e 100 mg capsule take 1 capsule BY MOUTH TWICE DAILY active Not Available Not Available No t Available cephalexin 500 mg capsule take 1 capsule BY MOUTH EVERY 6 HOURS active Not Available Not Available No t Available lisinopril 10 mg tablet TAKE 1 TABLET BY MOUTH EVERY DAY FOR BLOOD PRESSURE medicatio n active Not Available Not Available No t Available gabapentin 300 mg capsule take 1 capsule BY MOUTH TWICE DAILY for 7 days active Not Available Not Available No t Available omeprazole 20 mg capsule,de layed release take 1 capsule BY MOUTH EVERY DAY NEEDED FOR acid reflux active Not Available Not Available No t Available mupirocin 2 % topical ointment APPLY THIN FILM TOPICALLY TWICE DAILY active Not Available Not Available No t Available fluvoxamin e 50 mg tablet TAKE 1 TABLET BY MOUTH TWO TIMES DAILY active Not Available Not Available No t Available mirtazapin e 15 mg tablet TAKE 1 TABLET BY MOUTH AT BEDTIME active Not Available Not Available No t Available lisinopril 40 mg tablet TAKE 1 TABLET BY MOUTH EVERY DAY active Not Available Not Available No t Available cefdinir 300 mg capsule TAKE ONE CAPSULE BY MOUTH TWICE DAILY FOR 10 DAYS active Not Available Not Available No t Available neomycin 3.5 mg-polymyx in 10,000 unit-hydro mary 10 mg/mL eye drop,susp INSTIL 3 TO 4 DROPS IN RIGHT EAR FOUR TIMES DAILY active Not Available Not Available No t Available fluticason e propionate 50 mcg/actuat ion nasal spray,susp ension USE 1 SPRAY IN EACH NOSTRIL EVERY DAY NEEDED FOR ALLERGY SYMPTOMS active Not Available Not Available No t Available oxycodone 5 mg tablet TAKE 1 TABLET BY MOUTH EVERY 4 HOURS NEEDED FOR PAIN for 7 days active Not Available Not Available No t Available metoprolol tartrate 25 mg tablet TAKE 2 TABLETS BY MOUTH TWICE DAILY FOR BLOOD PRESSURE meds active Not Available Not Available No t Available nitrofuran toin monohydrat e/macrocry stals 100 mg capsule take 1 capsule BY MOUTH TWICE DAILY for 10 days active Not Available Not Available No t Available hydrocodon e-acetamin ophen Once or twice daily active Rx by Dr. Franco; 0; Recorded 9 3:32PM by Lilia Abel LPN, Office Visit; Not Available Not Available Not Available omeprazole daily 2018 active 436; Recorded 9 3:47PM by Lilia Abel LPN (Authoriz ed through Sridhar Mays MD), Office Visit; Refill Quantity: 30; Tablet; Not Available Not Available Not Available albuterol sulfate q 6 hrs prn cough/whe ezing 2018 active Recorded 9 3:49PM by Lilia Abel LPN, Historica l Summary; Refill Quantity: 0; Not Available Not Available Not Available escitalopr am oxalate daily 2018 active DOC CS/smf; Recorded 9 2:24PM by Lilia Abel LPN, Refill Request; Refill Quantity: 30; Tablet; Not Available Not Available Not Available hydrochlor othiazide 12.5 mg tablet TAKE 1 TABLET BY MOUTH EVERY DAILY active Not Available Not Available No t Available Sarna Sensitive 1 % lotion every 6 hours as needed for itching 2017 active 436; Recorded 9 2:43PM by ALESHA Stuart (Authoriz ed through Sridhar Mays MD), Office Visit; Refill Quantity: 0; Not Available Not Available Not Available diclofenac 1 % topical gel apply FOUR gram FOUR TIMES DAILY TO LEFT ankle NEEDED active Not Available Not Available No t Available Eliquis 5 mg tablet TAKE 1 TABLET BY MOUTH TWICE DAILY active Not Available Not Available No t Available Eliquis two times daily 2017 active 436; Recorded 8 3:09PM by Lilia Abel LPN (Authoriz ed through Sridhar Mays MD), Annotatio n/Addendu m; Refill Quantity: 180; Tablet; Not Available Not Available Not Available Vitals Date Recorded Body height Body mass index (BMI) Body weight Oxygen saturation Oxygen saturation in Arterial blood by Pulse oximetry Heart rate Respiratory rate Body temperature Systolic And Diastolic Provider Name and Address Organization Details Last Updated DateTime 3 175.26 cm 29.1 kg/m2 29163.7 g 98 % 98 % 53 /min 20 /min 97.3 [degF] 130/78 mm[Hg] GUANAKO EDELEN [facility] 3 14:36:59 Social History None recorded. Functional Status None recorded. Mental Status None recorded. Family History Nothing Reported. Medical History No medical history recorded. Immunizations Vaccine Type Date Status Note Provider Nam e and Address Organization Details Recorded Time zoster live 4 completed Not Available [facility] 09/26/2022 02:29:43 Tdap 8 completed Not Available [facility] 09/26/2022 02:29:43 Tdap 4 completed Not Available [facility] 09/26/2022 02:29:44 Influenza, split virus, trivalent, preservative 9 completed Not Available [facility] 09/26/2022 02:29:44 Pneumococcal conjugate PCV 13 6 completed Not Available [facility] 09/26/2022 02:29:44 Influenza, split virus, trivalent, preservative 6 completed Not Available [facility] 09/26/2022 02:29:44 Influenza, split virus, trivalent, preservative 8 completed Not Available [facility] 09/26/2022 02:29:44 pneumococcal polysaccharide PPV23 8 completed Not Available [facility] 09/26/2022 02:29:44 Influenza, split virus, trivalent, preservative 5 completed Not Available [facility] 09/26/2022 02:29:44 Influenza, split virus, trivalent, preservative 7 completed Not Available [facility] 09/26/2022 02:29:45 Influenza, split virus, trivalent, preservative 1 completed Not Available [facility] 09/26/2022 02:29:45 Past Encounters Encounter ID Performer Location Encounter Start Date Encounter Closed Date Diagnosis/Indication Diagnosis SNOMED-CT Code Diagnosis ICD10 Code Diagnosis IMO Codes Diagnosis Note [id number] [facility] ([facility]) [address] [place] [id number] 07/18/2022 14:13:23 07/18/2022 15:22:08 Acute sinusitis 35348005 J01.90 Start Z-pack today. Encouraged to push fluids. If not improving or worsening condition, return for further evaluation . If new onset confusion, severe chest pain, or severe SOB occurs, go to ED. Lethargy 017095483 R53.8 3 Discussed in length with patient that since this has been ongoing for 2 weeks, he should have some labs completed. Patient is going to see PCP next week and will discuss the weakness and lethargy with PCP. Patient denies any new onset confusion. Discussed with patient that if he experience s any new onset confusion or severe SOB or chest pain, he should go to the ED. Patient verbalized understand ing. Health Concerns Section Related Observation LastModified by Organization Detai ls LastModified Time None Recorded Concern Status LastModified by Organization Details LastModified Time None Recorded Advance Directives Directive None Recorded Payers Insurance Date Sequence Insurance Name Policy Number Policy Anderson Covered Member ID Anderson Member ID Guarantor Name 10/16/2022 1 [facility] (MEDICARE REPLACEMENT/A DVANTAGE - PPO) Mike Silva [id number] Mike Silva 10/16/2022 [place] [facility] ([facility]IT[facility] L) Mike Silva [id number] Mike Silva 10/16/2022 2 [place] Mike Silva [id number] Mike Silva Notes Date Note Type Note Provider Name and Address Organization Details Recorded Time 07/18/2022 text/html VomitingReported by PatientHPI:For associated symptoms, patient reportsheadache,decrea sed appetite,nausea,diarrh ea,weakness, andfatigue. For severity, patient reportsnot changing. For duration, patient reportsacuteand7-9 days. For onset/timing, patient reportsintermittent. For context, patient reportsno one else with similar symptoms.ROS as noted in the HPI Ajay Christopher, DO [address] [place] [address], [phone], [facility] 09/08/2022 15:09:28
[2025-01-06 12:56] VITALS: BP 100/56; PULSE 89; RESP 18; TEMP 36.8; O2SAT 93
[2025-01-06 16:06] VITALS: BP 135/70; PULSE 76; O2SAT 96
--- NOTE | 2025-01-06 16:09 | XRR_ITS ---
PROCEDURE INFORMATION: Exam: XR Chest Exam date and time: 01/06/2025 4:55 PM Age: 79 years old Clinical indication: Shortness of breath; Additional info: Rigors, infectious w/u TECHNIQUE: Imaging protocol: Radiologic exam of the chest. Views: 1 view. COMPARISON: CT chest [facility] [id number] 03/22/2024 9:00 AM FINDINGS: Lungs: Unremarkable. No consolidation. Pleural spaces: Unremarkable. No pleural effusion. No pneumothorax. Heart/Mediastinum: Unremarkable. No cardiomegaly. Bones/joints: Unremarkable. XR/XR chest 1V portable 70001 IMPRESSION: No acute findings.
[2025-01-06 16:20] LABS: Glucose Urine UA Negative (Normal); Nitrate Urine Negative (Negative); Specific Gravity, Urine 1.018 (1.005-1.030)
--- NOTE | 2025-01-06 16:24 | W.ED.GENADLT ---
HPI - General Adult General: Chief complaint: General Medical Stated complaint: having chills Legs hurt Time Seen by Provider: 01/06/25 15:22 History of Present Illness: 79-year-old male with a past medical history significant for hypertension, CKD, TIA, urethral stricture and BPH with need for intermittent self-catheterization for frequent minor urinary retention, presenting to the emergency department with shaking rigors and chills last night that started acutely, today has been feeling generalized chills, generalized weakness worse upon standing, no burning on urination no difficulty with urination no hematuria no recorded fevers no cough chest pain or shortness of breath, no abdominal pain vomiting or diarrhea. Related Data Home Medications ?Medication ?Instructions ?Recorded ?Confirmed ascorbic acid (vitamin C) 1,000 mg 1,000 mg PO BID 03/27/21 12/14/24 tablet aspirin 81 mg tablet,delayed 81 mg PO QPM 12/01/21 12/14/24 release bapiykbloefr-[id number]-qvmgu acid-vit 1 tab PO DAILY 12/01/21 12/14/24 K-lycop 400 mcg-20 mcg-370 mcg tablet (Men's 50 Plus Multivitamin) fluticasone propionate 50 2 spray intranasal DAILY 06/01/23 12/14/24 mcg/actuation nasal spray,suspension hydrocodone 10 mg-acetaminophen 1 - 2 tab PO BID PRN Pain 11/22/24 12/14/24 325 mg tablet Previous Rx's ?Medication ?Instructions ?Recorded AFO to the Left #1 ea 08/05/21 Non-articular Polymer AFO to left #1 ea 11/12/22 calcium polycarbophil 625 mg 1,250 mg (2 x 625 mg) PO BID fiber 07/15/23 tablet (FiberCon) for loose stools #120 tabs doxepin 50 mg capsule 50 mg PO .q hs sleep #30 caps 06/06/24 tamsulosin 0.4 mg capsule 0.8 mg (2 x 0.4 mg) PO BEDTIME 08/02/24 urinary retention #180 caps amlodipine 10 mg tablet 10 mg PO DAILY blood pressure #90 09/04/24 tabs docusate sodium 100 mg tablet 100 mg PO DAILY constipation #30 09/18/24 tabs polyethylene glycol 3350 17 17 g PO DAILY #238 grams 09/18/24 gram/dose oral powder (Miralax) metoprolol tartrate 25 mg tablet 12.5 mg (1/2 x 25 mg) PO BID #60 09/26/24 tabs tizanidine 4 mg tablet 4 mg PO BID PRN MUSCLE spasms #30 11/22/24 tabs alprazolam 1 mg tablet (Xanax) 1 mg PO BID PRN anxiety #60 tabs 11/28/24 escitalopram oxalate 10 mg tablet 10 mg PO DAILY #90 tabs 11/30/24 (Lexapro) omeprazole 20 mg capsule,delayed 20 mg PO BID acid reflux #180 caps 11/30/24 release methenamine hippurate 1 gram tablet 1 g PO BID #60 tabs 12/25/24 cefpodoxime 200 mg tablet 200 mg PO Q12H 7 days #14 tabs 01/06/25 Allergies Allergy/AdvReac Type Severity Reaction Status Date / Time Penicillins Allergy Intermediate rash Verified 12/14/24 13:11 sulfamethoxazole (From Allergy Hallucianti Verified 12/14/24 13:11 Bactrim) ons trimethoprim (From Bactrim) Allergy Hallucianti Verified 12/14/24 13:11 ons PFSH ED PFSH: Medical History Chronic cystitis Bradycardia with 41-50 beats per minute Acute myofascial strain of lumbosacral region BPH w urinary obs/LUTS Urethral stricture Recurrent UTI Sacroiliac inflammation Personal history of osteoporosis Allergic rhinitis due to allergen Hyperparathyroidism (04/08/20) COVID-19 (10/16/20) Basal cell carcinoma, 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) Left, s/p Mohs History of cardiac arrhythmia Has has documented transient atrial fibrillation/flutter with rapid ventricular response with spontaneous conversion to sinus rhythm in 2013 post op, again 2017 during acute illness History of nonmelanoma skin cancer Obesity (BMI 30.0-34.9) TIA (transient ischemic attack) Osteoarthritis involving multiple joints on both sides of body Neck, back & rt knee and rt AC joint Meatal stenosis Anxiety Chronic kidney disease, stage III (moderate) Squamous cell carcinoma of penis Hypertension GERD (gastroesophageal reflux disease) Depression Surgical History Status post colon resection winter Status post right knee replacement 03/23/2022 Dr. Wolfe Rt TKR S/P Mohs surgery for basal cell carcinoma Left arm 10/2021 Back planned 10/2021 History of surgery on upper extremity Left, s/p fracture History of excision of mass (07/2015) Penile lesion, by Dr Encinas. Procedure done: 1. Dorsal relaxing incision to expose penile mass 2. Wide excision of invasive appearing penile lesion consistent grossly with squamous cell carcinoma. Involving the glans penis and incompletely resected. Squamous cell carcinoma History of repair of right rotator cuff (04/2020) Dr Wolfe, Arthroscopic repair right rotator cuff, limited debridement including biceps tenotomy, labral debridement, subacromial bursectomy, and subacromial decompression History of knee surgery (10/2011) Dr Andres. Right knee arthroscopy, chondroplasty patella, medial femoral condyle, lateral femoral condyle and mild debridement of the posterior horn lateral meniscus. History of laparoscopic cholecystectomy Family History Mother , in her 80's Stroke Father , in his 60's Alcoholic Denies family history of Anesthesia complication Bleeding disorder Social History Smoking and tobacco/nicotine status: never used tobacco/nicotine Second hand smoke exposure: No Alcohol intake: never Substance/Drug Use: never Adopted: No Caregiver/support person: Yes Lives independently: Yes Household members: family and other Details: Son, grandson at house Housing: House Marital status: / Highest education level completed: High School Graduate service: No Current occupational status: retired Sexually active: No Do you think of yourself as: Straight/Heterosexual Current gender identity: Male Tir/Taoist: Tenriism Special tri needs: No Physical Exam Narrative: EXAM NARRATIVE: Gen: A&Ox4, no acute distress, nontoxic appearing HEENT: Normocephalic, atraumatic, no scleral icterus, external ears normal, moist mucous membranes Neck: Supple, full range of motion, no observable masses Lungs: No Respiratory distress, Lungs clear to auscultation bilaterally no rales, rhonchi, wheezing CV: Regular rate and rhythm, no murmur, trace bilateral pedal edema symmetric Abdomen: Soft, nondistended, nontender to palpation MSK: No joint swelling, FROM all 4 extremities Skin: No rashes, petechiae, lesions. Normal color per patient. Neuro: Alert and oriented, no slurred speech, sensation and strength grossly intact all 4 extremities Psych: Appropriate for situation. Course Reevaluation(s): Reevaluation #1: Patient reassessed, appears well, workup with generally normal blood work and positive UA for UTI, will give dose of antibiotic here in the emergency department and started on oral cefpodoxime, patient to follow his symptoms at home and return if symptoms worsen, he has follow-up with his PCP on Wednesday and I instructed him to keep that appointment.. Time: 17:42 Vital Signs: Vital signs: Vital Signs Temperature 98.2 F 01/06/25 12:56 Pulse Rate 76 01/06/25 16:06 Respiratory Rate 18 01/06/25 12:56 Blood Pressure 135/70 01/06/25 16:06 Pulse Oximetry 96 01/06/25 16:06 Oxygen Delivery Me thod Room Air 01/06/25 16:06 MDM - General Adult Medical Decision Making 79-year-old male past medical history significant for hypertension CKD TIA and chronic urologic issues urethral stricture BPH and intermittent episodes of urinary retention requiring straight cath, presenting to the emergency department with nonspecific rigors since last night, chills and generalized weakness today, no recorded fever, generally well-appearing, no focal or localizing symptoms by history or physical but given medical history would consider UTI as a potential cause, plan for infectious workup, urinalysis, reassess for disposition. Clinically patient does not appear septic or need empiric IV fluids or antibiotics until diagnosis confirmed given he does have pedal edema and history of CKD. Lab Data Labs with no leukocytosis, no anemia, minimal thrombocytopenia, creatinine 1.6 baseline in the 1.31.4 range, lactate normal, urinalysis consistent with UTI 01/06/25 16:40 01/06/25 16:40 Laboratory Results WBC 4.04 10^3/uL (3.29-11.43) 01/06/25 16:40 RBC 4.26 10^6/uL (3.85-5.65) 01/06/25 16:40 Hgb 13.30 g/dL (11.27-16.99) 01/06/25 16:40 Hct 41.7 % (37-53) 01/06/25 16:40 MCV 97.9 fl (82-101) 01/06/25 16:40 MCH 31.2 pg (27-33) 01/06/25 16:40 MCHC 31.9 g/dL (30-55) 01/06/25 16:40 RDW 13.1 % (12.1-15.1) 01/06/25 16:40 Plt Count 128 10^3/cmm (157-399) L 01/06/25 16:40 MPV 8.4 fL (7.4-10.4) 01/06/25 16:40 Neut % (Auto) 80.1 % 01/06/25 16:40 Lymph % (Auto) 12.1 % 01/06/25 16:40 [place] % (Auto) 7.2 % 01/06/25 16:40 Eos % (Auto) 0.2 % 01/06/25 16:40 Baso % (Auto) 0.2 % 01/06/25 16:40 Neut # (Auto) 3.23 10^3/uL (1.8-7.7) 01/06/25 16:40 Lymph # (Auto) 0.5 10^3/uL (0.8-4.8) L 01/06/25 16:40 [place] # (Auto) 0.3 10^3/uL (0.2-0.9) 01/06/25 16:40 Eos # (Auto) 0.0 10^3/uL (0.0-0.8) 01/06/25 16:40 Baso # (Auto) 0.0 10^3/uL (0.0-0.1) 01/06/25 16:40 Nucleated RBC % (auto) 0 % 01/06/25 16:40 Nucleated RBCs # 0.0 /100WBC 01/06/25 16:40 Sodium 137 mmol/L (136-145) 01/06/25 16:40 Potassium 3.7 mmol/L (3.5-5.1) 01/06/25 16:40 Chloride 104 mmol/L (98-107) 01/06/25 16:40 Carbon Dioxide 20 mmol/L (22-29) L 01/06/25 16:40 Anion Gap 16.7 (5-19) 01/06/25 16:40 BUN 25 mg/dL (8-23) H 01/06/25 16:40 Creatinine 1.6 mg/dL (0.7-1.2) H 01/06/25 16:40 GFR Calculation Not Reportable 01/06/25 16:40 Glucose 120 mg/dL (65-115) H 01/06/25 16:40 Calculated Osmolality 290 mOsm/kg (285-295) 01/06/25 16:40 Lactic Acid 1.3 mmol/L (0.5-2.2) 01/06/25 16:40 Calcium 9.3 mg/dL (8.5-10.5) 01/06/25 16:40 Urine Color Yellow (Yellow) 01/06/25 13:45 Urine Appearance Clear (CLEAR) 01/06/25 13:45 Urine pH 5.5 (5-7) 01/06/25 13:45 Ur Specific [place] 1.018 (1.005-1.030) 01/06/25 13:45 Urine Protein 2+ (Negative) A 01/06/25 13:45 Urine Glucose (UA) Negative (Normal) 01/06/25 13:45 Urine Ketones Negative (Negative) 01/06/25 13:45 Urine Blood Negative (Negative) 01/06/25 13:45 Urine Nitrate Negative (Negative) 01/06/25 13:45 Urine Bilirubin Negative (Negative) 01/06/25 13:45 Urine Urobilinogen 0.2 mg/dL (Negative) 01/06/25 13:45 Ur Leukocyte Esterase 2+ (Negative) A 01/06/25 13:45 Urine RBC 0-2 /hpf (0-2) 01/06/25 13:45 Urine WBC 51-100 /hpf (0-5) H 01/06/25 13:45 Ur Squamous Epith Cells 0-5 /hpf (0-5) 01/06/25 13:45 Amorphous Sediment Not Reportable 01/06/25 13:45 Urine Bacteria 4+ /hpf (NONE) H 01/06/25 13:45 Hyaline Casts 7.85 /lpf 01/06/25 13:45 All radiology interpretation(s) finalized by discharge ED provider radiology interpretation(s): Chest x-ray no pneumonia Discharge Plan Discharge Patient Disposition: Home Clinical Impression: UTI (urinary tract infection) Condition: Stable Prescriptions: New cefpodoxime 200 mg tablet 200 mg PO Q12H 7 Days Qty: 14 0RF Rx Instructions: must administer with a meal/food No Action ascorbic acid (vitamin C) 1,000 mg tablet 1,000 mg PO BID FiberCon 625 mg tablet 1,250 mg PO BID Qty: 120 5RF polyethylene glycol 3350 [Miralax] 17 gram/dose powder 17 g PO DAILY Qty: 238 0RF docusate sodium 100 mg tablet 100 mg PO DAILY Qty: 30 0RF (DME) Non-articular Polymer AFO to left See Rx Instructions .Route .MEDSUPPLY Qty: 1 0RF Rx Instructions: As directed by [facility] tizanidine 4 mg tablet 4 mg PO BID PRN (Reason: MUSCLE spasms) Qty: 30 3RF (DME) AFO to the Left See Rx Instructions .Route .MEDSUPPLY Qty: 1 0RF Rx Instructions: As directed [facility] doxepin 50 mg capsule 50 mg PO .q hs Qty: 30 2RF Rx Instructions: Take 1 to 2 hours before sleep time tamsulosin 0.4 mg capsule 0.8 mg PO BEDTIME Qty: 180 1RF amlodipine 10 mg tablet 10 mg PO DAILY Qty: 90 1RF metoprolol tartrate 25 mg tablet 12.5 mg PO BID Qty: 60 1RF Rx Instructions: do not forget to cut tablet in half. take half in AM and half in PM alprazolam [Xanax] 1 mg tablet 1 mg PO BID PRN (Reason: anxiety) Qty: 60 3RF omeprazole 20 mg capsule,delayed release(DR/EC) 20 mg PO BID Qty: 180 1RF escitalopram oxalate [Lexapro] 10 mg tablet 10 mg PO DAILY Qty: 90 1RF methenamine hippurate 1 gram tablet 1 g PO BID Qty: 60 5RF fluticasone propionate 50 mcg/actuation spray,suspension 2 spray INTRANASAL DAILY hydrocodone-acetaminophen 10-325 mg tablet 1 - 2 tab PO BID PRN (Reason: Pain) aspirin 81 mg Tablet,Delayed Release (Dr/Ec) 81 mg PO QPM Men's 50 Plus Multivitamin 400-20-370 mcg Tablet 1 tab PO DAILY Discharge Orders: Discharge ED (Routine); Ordered 01/06/25 Ordered By: Mateo Schultz Referrals: Yovani Carter MD [Primary Care Provider, Family Practice] Patient Instructions: Patient Portal & Vani Instructions, Urinary Tract Infection in Men (DC) Print Language: Urdu Coding Level of Care Code ED [employer] Cle[employer] Attendant for Cielo Chopra
[2025-01-06 16:41] LABS: UA Slide Review UA Slide Review Perf
[2025-01-06 16:52] LABS: Hematocrit 41.7 % (37-53); Hemoglobin 13.30 g/dL (11.27-16.99); Mean Corpuscular HGB Conc 31.9 g/dL (30-55); Mean Corpuscular Hemoglobin 31.2 pg (27-33); Mean Corpuscular Volume 97.9 fl (82-101); Nucleated Red Blood Cells % 0 %; Platelet Count 128 10^3/cmm (157-399); Red Blood Count 4.26 10^6/uL (3.85-5.65); White Blood Count 4.04 10^3/uL (3.29-11.43)
[2025-01-06 17:14] LABS: Anion Gap 16.7 (5-19); Blood Urea Nitrogen 25 mg/dL (8-23); Calcium 9.3 mg/dL (8.5-10.5); Carbon Dioxide 20 mmol/L (22-29); Chloride 104 mmol/L (98-107); Glucose 120 mg/dL (65-115); Lactic Sepsis W/Reflex 1.3 mmol/L (0.5-2.2); Osmolality Calculated 290 mOsm/kg (285-295); Potassium 3.7 mmol/L (3.5-5.1); Sodium 137 mmol/L (136-145)
[2025-01-06] MEDS: cefTRIAXone 1,000 MG in water for injection-sterile 2.1 ML 1 MG IM (17:42)
[2025-01-06 17:48] VITALS: BP 137/67; PULSE 71; O2SAT 97
== END 2025-01-06 17:51 | disposition home or self-care (01) ==
PROVIDERS: Emergency Provider Student in an Organized Health Care Education/Training Program; PCP Family Medicine
DX: N39.0 Urinary tract infection, site not specified (principal); Z79.82 Long term (current) use of aspirin; Z86.73 Personal history of transient ischemic attack (TIA), and cerebral infarction without residual deficits; Z85.828 Personal history of other malignant neoplasm of skin; I12.9 Hypertensive chronic kidney disease with stage 1 through stage 4 chronic kidney disease, or unspecified chronic kidney disease; N18.9 Chronic kidney disease, unspecified
CPT/HCPCS: 36415; 71045; 80048; 81001; 83605; 85025; 87040; 87077; 87086; 87186; 96372; 99284; J0696

== ENCOUNTER → 2025-02-04 12:55 | Outpatient (BNVA) | payer MEDICARE, MEDICAID, SELFPAY | PROVIDERS: PCP Family Medicine; Visit Provider Emergency Medicine | DX: M19.072 Primary osteoarthritis, left ankle and foot (principal) | CPT/HCPCS: 73610 ==

== ENCOUNTER → 2025-02-06 07:21 | Outpatient (BNVA) | payer MEDICARE, MEDICAID, SELFPAY | PROVIDERS: PCP Family Medicine; Visit Provider Podiatrist Foot & Ankle Surgery | DX: M19.172 Post-traumatic osteoarthritis, left ankle and foot (principal); M25.372 Other instability, left ankle | CPT/HCPCS: 20605; 99213; J1100; J3301; J3490 ==